=== PATIENT | female | born 1990 | race Caucasian/White ===

== ENCOUNTER → 2022-02-08 | Outpatient (CLI) | payer OTHER, SELFPAY ==
[2022-02-08 13:36] LABS: Absolute Lymphocyte Count 1.78 X10^3/uL (0.83-4.51); Basophil# 0.07 X10^3/uL; Eosinophil# 0.18 X10^3/uL; Eosinophils% 2.4 % (0-5); Hematocrit 43.9 % (37-47); Hemoglobin 14.6 g/dL (12.0-15.0); Lymphocyte # 1.78 X10^3/ul (0.83-4.51); Lymphocyte % 24.2 % (19-41); Mean Corp Hgb Conc 33.3 g/dL (32-36); Mean Corpuscular Hgb 30.1 pg (27.0-32.0); Mean Corpuscular Volume 90.5 fL (81-99); Mean Platelet Vol. 11.1 fl (6.2-12.0); Monocyte# 0.29 X10^3/uL; Monocyte% 3.9 % (0-10); NRBC Flagged by Analyzer 0 % (0-5); Neutrophil # 5.02 X10^3/uL (2.7-7.7); Neutrophil % 68.4 % (47-70); Platelet Count 229 K/mm3 (150-450); RBC Distribution Width CV 11.6 % (11.6-14.6); RBC Distribution Width SD 38.3 fl (35.1-43.9); Red Blood Count 4.85 M/mm3 (4.2-5.4); White Blood Count 7.4 K/mm3 (4.4-11.0)
[2022-02-08 14:29] LABS: HIV - WCH Non-Reactive (Nonreactive); Hepatitis B Surface Antigen Non-Reactive (Nonreactive); Hepatitis C Antibody Non-Reactive (Nonreactive); Rubella IgG Reactive (Nonreactive); Syphilis Antibodies Non-reactive
[2022-02-08 14:33] LABS: Estradiol 50.5 pg/mL; Follicle Stimulating Hormone 4.6 mIU/mL; Luteinizing Hormone 6.4 mIU/mL; T4 Free Direct 0.95 ng/dL (0.76-1.46); Thyroid Stim Hormone (TSH) 1.95 uIU/mL (0.358-3.74)
[2022-02-14 18:11] LABS: HPV Reflexed? NOT INDICATED
== END | disposition home or self-care (01) ==
LOC: WOBLAB 12:09
PROVIDERS: Visit Provider Obstetrics & Gynecology
DX: Z12.4 Encounter for screening for malignant neoplasm of cervix (principal); N97.9 Female infertility, unspecified
CPT/HCPCS: 36415; 82670; 83001; 83002; 84439; 84443; 85025; 86703; 86762; 86780; 86803; 87340; 88175; G0145

== ENCOUNTER → 2023-02-09 | Outpatient (CLI) | payer OTHER, SELFPAY ==
[2023-02-13 14:09] LABS: HPV APTIMA, High Risk Negative (Negative)
== END | disposition home or self-care (01) ==
PROVIDERS: Visit Provider Nurse Practitioner Women's Health
DX: Z12.4 Encounter for screening for malignant neoplasm of cervix (principal)
CPT/HCPCS: 87624; 88175; G0145

== ENCOUNTER 2024-05-09 16:36 | Emergency (ER) | payer OTHER, SELFPAY ==
[2024-05-09 16:37] VITALS: BP 133/78; PULSE 91; RESP 16; TEMP 36.6; O2SAT 100; BMI 20.3
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
[2024-05-09] MEDS: Acetaminophen 325 MG Tablet 650 MG PO (17:51)
[2024-05-09 18:38] VITALS: BP 115/72; PULSE 81; RESP 16; TEMP 36.7; O2SAT 99
== END 2024-05-09 18:39 | disposition home or self-care (01) ==
PROVIDERS: Emergency Provider Emergency Medicine; PCP Family Medicine; Referring Provider Emergency Medicine; Visit Provider Emergency Medicine
DX: M25.532 Pain in left wrist (principal); T23.072A Burn of unspecified degree of left wrist, initial encounter; V43.52XA Car driver injured in collision with other type car in traffic accident, initial encounter
CPT/HCPCS: 73110; 99282

== ENCOUNTER 2024-11-04 19:55 | Outpatient (CLI) | payer OTHER, SELFPAY ==
[2024-11-04 21:02] LABS: Color, Urine Yellow (Yellow); Glucose, Dipstick Normal (Normal); Ketone-Dipstick Negative (Negative); Leukocyte Esterase-Dipstick Negative /ul (Negative); Nitrite-Dipstick Negative (Negative); Occult Blood-Urine Negative /ul (Negative); Protein-Dipstick Negative (Negative); Urine Bilirubin Dipstick Negative (Negative); Urine Clarity Clear (Clear); Urine Urobilinogen Normal (Normal)
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
== END 2024-11-04 20:35 | disposition home or self-care (01) ==
LOC: WPOUT 20:00 → WP 20:00
PROVIDERS: PCP Family Medicine; Visit Provider Obstetrics & Gynecology
DX: O99.891 Other specified diseases and conditions complicating pregnancy (principal); N94.89 Other specified conditions associated with female genital organs and menstrual cycle; Z3A.20 20 weeks gestation of pregnancy
CPT/HCPCS: 59025; 59050; 81002; 87086; 99221; G0378

== ENCOUNTER 2025-03-27 00:43 | Inpatient (IN) | payer OTHER, SELFPAY ==
--- OUTSIDE RECORDS SUMMARY | 2025-03-26 21:01 | XMS RPT_ITS | CCD ---
Author Organization [facility] Care Team Providers Care Data Steward Name Role Phone Unavailable Primary Care Provider Tushar Aguirre Primary Care Provider Unavailable Primary Care Provider Shelby Centeno MD, Tushar Stapleton Primary Care Provide r CHELSY PERRY Attending Unavailable ERIK CHENG Referring Unavailable EILEEN HOUSE Attending Unavailable ERIK CHENG Referring Unavailable CHELSY PERRY Attending Unavailable ERIK CHENG Referring Unavailable Elif MELO, Tushar Stapleton Primary Care Provide r Tushar Centeno MD Primary Care Provide r Mitesh Fregoso Unavailable Peter Teresa Attending Unavailable Tushar Centeno Primary Care Unavailable Tushar Centeno Primary Care Unavailable Wendie Ly Referring Unavailable Wendie Ly Attending Unavailable Peter Teresa Referring Unavailable Peter Teresa Attending Unavailable Peter Teresa Admitting Unavailable Tushar Centeno Primary Care Unavailable Cecile Ruth CNP Primary Care Provider [phone] Tushar Centeno MD Primary Care Provide r TUSHAR CENTENO Primary Care Unavail able ZINA JENSEN Attending Unavailable TUSHAR CENTENO Primary Care Unavail able ZINA JENSEN Referring Unavailable TUSHAR CENTENO Primary Care Unavail able HANNA RANDALL Attending Unavail able TUSHAR CENTENO Primary Care Unavail able ZINA JENSEN Referring Unavailable TUSHAR CENTENO Primary Care Unavail able JENSEN, ZINA Referring Unavailable VALERIO LEON Attending Unavailable CECILE RUTH Primary Care Unavailable JENSEN, ZINA Referring Unavailable JENSEN, ZINA Attending Unavailable CECILE RUTH Primary Care Unavailable SELF Referring Unavailable BEBETO VALENCIA Attending Unavailable GODLECARLOS EDUARDO, [facility] Primary Care Unavail able JENSEN, ZINA Referring Unavailable GODLEWSVLADIMIR, [facility] Primary Care Unavail able JENSEN, ZINA Referring Unavailable GODLEWSKI, [facility] Primary Care Unavail able JENSEN, ZINA Referring Unavailable JENSEN, ZINA Attending Unavailable GODLECARLOS EDUARDO, [facility] Primary Care Unavail able VICKY ENGEL Attending Unavailable GODLEWSVLADIMIR, [facility] Primary Care Unavail able JENSEN, ZINA Referring Unavailable JENSEN, ZINA Attending Unavailable GODROSSANA, [facility] Primary Care Unavail able VICKY ENGEL Referring Unavailable GODLEWSVLADIMIR, [facility] Primary Care Unavail able MITESH FREGOSO Referring Unavailable BRAD RODRIGUEZ Attending Unavailable GODLEWSVLADIMIR, [facility] Primary Care Unavail able JENSEN, ZINA Attending Unavailable GODLECARLOS EDUARDO, [facility] Primary Care Unavail able JENSEN, ZINA Referring Unavailable GODLEWSVLADIMIR, TUSHAR ANDREI Primary Care Unavail able JENSEN, ZINA Attending Unavailable GODLEWSVLADIMIR, TUSHAR ANDREI Primary Care Unavail able JENSEN, ZINA Referring Unavailable GODLECARLOS EDUARDO, TUSHAR ANDREI Primary Care Unavail able ASHLI LARAY Referring Unavailable MISBAH CHEN Attending Unavailable GODLECARLOS EDUARDO, [facility] Primary Care Unavail able VICKY ENGEL Attending Unavailable GODLEWSVLADIMIR, [facility] Primary Care Unavail able NADORLIK, JOSSY Referring Unavailable GODLEWSVLADIMIR, [facility] Primary Care Unavail able JENSEN, ZINA Referring Unavailable PETER TERESA Attending Unavailable GODLEWSVLADIMIR, TUSHAR ANDREI Primary Care Unavail able JENSEN, ZINA Attending Unavailable GODLEWSVLADIMIR, [facility] Primary Care Unavail able GODLEWSVLADIMIR, [facility] Primary Care Unavail able JENSEN, ZINA Attending Unavailable GODLEWSVLADIMIR, [facility] Primary Care Unavail able JENSEN, ZINA Referring Unavailable GODLEWSKI, TUSHARFOREIGN CEJAE Primary Care Unavail able ZINA JENSEN Referring Unavailable ZINA JENSEN Attending Unavailable PROVIDER, UNKNOWN Attending Unavailable CECILE RUTH Primary Care Unavailable JOSSY LARA Attending Unavailable TUSHAR CENTENO Primary Care Unavail able TUSHAR CENTENO Primary Care Unavail able Allergies Allergy Classification Reported Allergen(s) Allergy Type Date of Onset Reaction(s) Facility (20 sources) Amoxicillin; Translations: [AMOXICILLIN] Drug Allergy 3 Rash [facility] (20 sources) Latex; Translations: [LATEX] Propensity to adverse reactions to drug 3 Swelling [facility] (1 source) Latex Propensity to adverse reactions to drug 3 Swelling [facility] (20 sources) Clindamycin; Translations: [CLINDAMYCIN] Drug Allergy 9 Diarrhea [facility] (1 source) Amoxicillin Drug Allergy 5 [facility] (1 source) Latex Drug allergy (disorder) 5 [facility] Repository Medications Current Medications Medication Drug Class(es) Dates Sig (Normalized) Sig (Original) cholecalciferol 0.025 mg oral tablet (12 sources) Vitamin D Start: 06-03-2022 take 1 tablet by mouth once daily cholecalciferol (VITAMIN D3) 1,000 unit tab tablet Take 1 tablet by mouth once daily. 06/03/2022 Active CHOLINE CHLORIDE, BULK, MISC (20 sources) CHOLINE CHLORIDE , BULK, MISC 550 mg. Active CHOLINE CHLORIDE , BULK, MISC Active Coenzyme Q10 (COQ10 PO) (2 sources) Coenzyme Q10 (CO Q10 PO) Take by mouth. 0 Active Docosahexaenoate (12 sources) docosahexaenoic acid ( DHA ORAL) Take by mouth. With omega 3 Active ferrous sulfate (12 sources) ferrous sulfate (IRON ORAL) Take by mouth. Blood builder- whole food iron Active Lactobac no.41/Bifidobact no .7 (PROBIOTIC-10 ORAL) (20 sources) Lactobac no.41/B ifidobact no.7 (PROBIOTIC-10 ORAL) Take by mouth once daily. Active Lactobac no.41/B ifidobact no.7 (PROBIOTIC-10 ORAL) Take by mouth once daily. 0 Active Comment on above: Take by mouth once d aily. nutritional supplement/fiber (JUICE PLUS FIBRE ORAL) (20 sources) nutritional supp lement/fiber (JUICE PLUS FIBRE ORAL) Take by mouth once daily. Active nutritional supp lement/fiber (JUICE PLUS FIBRE ORAL) Take by mouth once daily. 0 Active Comment on above: Take by mouth once d aily. Nutritional Supplements (Juice Plus Fibre) Liquid (2 sources) Nutritional Supplements (Juice Plus Fibre) Liquid Take by mouth. 0 Active omega-3 acid ethyl esters (chcf) 1000 mg oral capsule (2 sources) take 2 capsules by mouth twice daily omega-3 acid ethyl esters 1 g capsule Take 2 capsules by mouth 2 times daily. 0 Active Probiotic Product (PROBIOTIC ADVANCED PO) (2 sources) Probiotic Produc t (PROBIOTIC ADVANCED PO) Take by mouth. 0 Active Completed/Discontinued Medications Medication Drug Class(es) Dates Sig (Normalized) Sig (Original) ascorbic acid 500 mg oral tablet (20 sources) Vitamin C End: 08-12-2024 take 1 tablet by mouth once daily ascorbic acid, vitamin C, (VITAMIN C) 500 mg tablet Take 500 mg by mouth once daily. 08/12/2024 Discontinued (Course of therapy completed) take 1 tablet by mouth once chanel y Ascorbic acid 500 MG tablet Take 1 tablet by mouth daily. 0 Active Comment on above: Take 500 mg by mouth once daily. aspirin 81 mg delayed release oral tablet (11 sources) Platelet Aggregation Inhibitor, Nonsteroidal Anti-inflammatory Drug Start: 08-12-2024 End: 12-04-2024 take 1 tablet by mouth once daily aspirin, enteric coated (ECOTRIN LOW STRENGTH) 81 mg EC tablet Indications: with uncertain dates, antepartum (HCC) Take 1 tablet by mouth once daily. 90 tablet 3 08/12/2024 12/04/2024 Discontinued (Discontinued by Patient) Choline (4 sources) End: 11-08-2024 CHOLINE ORAL Take by mouth. 11/08/2024 Discontinued (Course of therapy completed) CHOLINE ORAL Polo e by mouth. Active chorionic gonadotropin 89479 unt/ml injectable solution (17 sources) Gonadotropin Start: 02-23-2023 End: 04-14-2023 chorionic gonadotropin (PREGNYL) 10,000 unit solr 10,000 Units once daily. 10,000 Units as directed. Inject 10,000 units for HCG trigger 1 Each 1 02/23/2023 04/14/2023 Discontinued Comment on above: 10,000 Units once da foreign. 10,000 Units as directed. Inject 10,000 units for HCG trigger CRANBERRY [id number] ORAL (8 sources) Start: 06-03-2022 End: 03-09-2025 CRANBERRY [id number] ORAL Take by mouth. 06/03/2022 03/09/2025 Discontinued (Course of therapy completed) Start: 06-03-2022 CRANBERRY EXTR [id number] ORAL Take by mouth. 06/03/2022 Active doxycycline hyclate 100 mg oral tablet (16 sources) Tetracycline-class Drug Start: 05-16-2023 End: 08-12-2024 take 1 tablet by mouth twice daily doxycycline (VIBRA-TABS) 100 mg tablet Take 1 tablet by mouth twice daily. 8 tablet 05/16/2023 08/12/2024 Discontinued (Course of therapy completed) Comment on above: Take 1 tablet by emily twice daily. estradiol 2 mg oral tablet (16 sources) Estrogen Start: 05-16-2023 End: 08-12-2024 take 3 tablets by mouth once daily estradiol (ESTRACE) 2 mg tablet Take 3 tablets by mouth once daily. 120 tablet 3 05/16/2023 08/12/2024 Discontinued Comment on above: Take 3 tablets by mo [facility] once daily. fish oil/borage/flax/o m3,6,9 1 (OMEGA 3-6-9 ORAL) (20 sources) End: 02-10-2025 fish oil/borage/flax/o m3,6,9 1 (OMEGA 3-6-9 ORAL) Take by mouth once daily. 02/10/2025 Discontinued (Course of therapy completed) fish oil/borage/ flax/om3,6,9 1 (OMEGA 3-6-9 ORAL) Take by mouth once daily. Active fish oil/borage/ flax/om3,6,9 1 (OMEGA 3-6-9 ORAL) Take by mouth once daily. 0 Active Comment on above: Take by mouth once d aily. follicle stimulating hormone 75 unt / luteinizing hormone 75 unt injection (16 sources) Gonadotropin Start: 023 End: 023 inject 75 [IU] by subcutaneous injection once daily Menotropins (MENOPUR) 75 unit solr Inject 75 Units subcutaneously once daily. 5 Each 3 02/27/2023 04/14/2023 Discontinued Start: 02-23-2023 inject 75 [IU] by mcdonnell bcutaneous injection once daily Menotropins (MENOPUR) 75 unit solr Inject 75 Units subcutaneously once daily. 3 Each 3 02/23/2023 Active Comment on above: Inject 75 Units subc utaneously once daily. 1.5 ml follitropin kevin 600 unt/ml pen injector (17 sources) Start : 02-23 End: 04-14 inject 350 [IU] by subcutaneous injection once daily, then inject 200 [IU] by subcutaneous injection once daily Follitropin Kevin 900/1.5 unit/mL pnij Inject 350 Units subcutaneously once daily. Inject 200 Units subcutaneously once daily 1 Each 3 02/23/2023 04/14/2023 Discontinued Comment on above: Inject 350 Units sub cutaneously once daily. Inject 200 Units subcutaneously once daily 1.08 ml follitropin beta 833 unt/ml cartridge (13 sources) Start : 02-27 End: 04-14 inject 350 [IU] by subcutaneous injection once daily Follitropin Beta (FOLLISTIM AQ) 900 unit/1.08 mL Inject 350 Units subcutaneously once daily. 2 Each 3 02/27/2023 04/14/2023 Discontinued Comment on above: Inject 350 Units sub cutaneously once daily. 0.5 ml ganirelix acetate 0.5 mg/ml prefilled syringe (17 sources) Gonadotropin Releasing Hormone Antagonist Start : 02-23 End: 04-14 Ganirelix Acetate 250 mcg/0.5 mL Inject 1 syringe daily subcutaneous before 8am. 4 Each 3 02/23/2023 04/14/2023 Discontinued Comment on above: Inject 1 syringe bradley ly subcutaneous before 8am. leuprolide acetate 5 mg/ml injectable solution (7 sources) Gonadotropin Releasing Hormone Receptor Agonist Start : 04-04 inject 80 [IU] by subcutaneous injection once leuprolide (LUPRON) 1 mg/0.2 mL Inject 80 units subcutaneous once as directed for Lupron injection. Prefilled syringe for trigger only 1 Kit 1 04/04/2023 Active Comment on above: Inject 80 units subc utaneous once as directed for Lupron injection. Prefilled syringe for trigger only methylPREDNISolone 16 mg oral tablet (16 sources) Corticosteroid Start : 05-16 End: 08-12 take 1 tablet by mouth once daily methylPREDNISolone (MEDROL) 16 mg tablet Take 1 tablet by mouth once daily. 4 tablet 05/16/2023 08/12/2024 Discontinued (Course of therapy completed) Comment on above: Take 1 tablet by emily once daily. PNV no.103/folic/om3s/fish oil ( WITH DHA-FOLIC ACID ORAL) (20 sources) End: 03-09 PNV no.103/folic/om3s/fish oil ( WITH DHA-FOLIC ACID ORAL) Take by mouth. 03/09/2025 Discontinued (Discontinued by Patient) PNV no.103/folic /om3s/fish oil ( WITH DHA-FOLIC ACID ORAL) Take by mouth. Active progesterone 50 mg/ml injectable solution (16 sources) Progesterone Start: 05-16-2023 End: 08-12-2024 inject 1 mL by intramuscular injection once daily in the morning progesterone 50 mg/mL injection Inject 1 mL intramuscularly once daily. Take in the morning before 10am 30 mL 3 05/16/2023 08/12/2024 Discontinued (Course of therapy completed) Comment on above: Inject 1 mL intramuscularly once daily. Take in the morning before 10am Syringe with Needle, Disp, (BD LUER-AMY SYRINGE) (16 sources) Start: 05-16-2023 End: 08-12-2024 Syringe with Needle, Disp, (BD LUER-AMY SYRINGE) To be used to draw up progesterone in oil 30 Each 3 05/16/2023 08/12/2024 Discontinued (Course of therapy completed) Start: 05-16-2023 Syringe with N eedle, Disp, (BD LUER-AMY SYRINGE) To be used to draw up progesterone in oil 30 Each 3 05/16/2023 Active Comment on above: To be used to draw u p progesterone in oil ubiquinol 200 mg oral capsule (20 sources) End: take 200 mg by mouth once daily COQ10, UBIQUINOL, ORAL Take 200 mg by mouth once daily. 08/12/2024 Discontinued (Course of therapy completed) Comment on above: Take 200 mg by mouth once daily. 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; Translations: [Encounter for male factor infertility in female patient] Episodic E Codes: Adverse effects of medical drugs (1 source) Adverse effect of antidotes and chelating agents, initial encounter; Translations: [Adverse effect of penicillamine, initial encounter] Onset: 03-05-2025 Episodic Female infertility (17 sources) Female infertility; Translations: [Female infertility, unspecified] Chronic Immunizations and screening for infectious disease (1 source) Encounter for immunization; Translations: [Need for vaccination] Onset: 01-01-2025 Episodic Intracranial injury (1 source) History of concussion injury of brain; Translations: [Personal history of traumatic brain injury] 08-12-2024 Episodic Nonmalignant breast conditions (5 sources) Fibrocystic changes of bilateral breasts; Translations: [Diffuse cystic mastopathy of right breast] Onset: 12-05-2022 Chronic Other and unspecified benign neoplasm (20 sources) Cavernous hemangioma; Translations: [Hemangioma unspecified site] 01-01-2025 Episodic Other and unspecified benign neoplasm (2 sources) Hemangioma unspecified site; Translations: [Cavernoma] Onset: 02-14-2025 Episodic Other complications of ; puerperium affecting management of mother (3 sources) Suspected disorder; Translations: [Maternal care for (suspected) abnormality and damage, unspecified, fetus 1] 11-19-2024 Episodic Other complications of ; puerperium affecting management of mother (1 source) Maternal care for (suspected) abnormality and damage, unspecified, fetus 1; Translations: [Maternal care for (suspected) abnormality and damage, unspecified, fetus 1 (HCC)] Onset: 02-12-2025 Episodic Other complications of (1 source) Spotting per vagina in ; Translations: [Spotting complicating , unspecified trimester] 08-12-2024 Episodic Other complications of (1 source) Excessive weight gain in , third trimester; Translations: [Edema or excessive weight gain in , without mention of hypertension, antepartum condition or complication] 01-01-2025 Episodic Other complications of (1 source) Hereditary disease in family possibly affecting fetus; Translations: [Maternal care for (suspected) hereditary disease in fetus, not applicable or unspecified] 02-12-2025 Episodic Other complications of (3 sources) High risk ; Translations: [Supervision of high risk , unspecified, third trimester] 03-05-2025 Episodic Other complications of (1 source) Supervision of high risk , unspecified, third trimester; Translations: [Supervision of high risk in third trimester (HCC)] Onset: 03-05-2025 Episodic Other injuries and conditions due to external causes (1 source) Unspecified injury of left wrist, hand and finger(s), initial encounter; Translations: [Unspecified injury of left wrist, hand and finger(s), initial encounter] Onset: 12-20-2024 Episodic Other screening for suspected conditions (not mental disorders or infectious disease) (12 sources) Patient encounter status; Translations: [Encounter for test, result unknown] Onset: 09-13-2024 06-22-2023 Episodic Poisoning by other medications and drugs (2 sources) Penicillamine adverse reaction; Translations: [Adverse effect of antidotes and chelating agents, initial encounter] 03-05-2025 Episodic Residual codes; unclassified (4 sources) Family history of breast cancer; Translations: [Family history of malignant neoplasm of breast] Onset: 12-05-2022 Episodic Residual codes; unclassified (2 sources) Family history of malignant neoplasm of breast; Translations: [Family history of malignant neoplasm of breast] Onset: 12-05-2022 Episodic Residual codes; unclassified (1 source) Did not attend; Translations: [No-show for appointment] 10-01-2023 Episodic Residual codes; unclassified (1 source) Gestation period, 9 weeks; Translations: [9 weeks gestation of ] 08-20-2024 Episodic Residual codes; unclassified (1 source) Gestation period, 12 weeks; Translations: [12 weeks gestation of ] 09-13-2024 Episodic Residual codes; unclassified (1 source) Gestation period, 17 weeks; Translations: [17 weeks gestation of ] 10-15-2024 Episodic Residual codes; unclassified (2 sources) Gestation period, 20 weeks; Translations: [20 weeks gestation of ] 11-08-2024 Episodic Residual codes; unclassified (1 source) Gestation period, 24 weeks; Translations: [24 weeks gestation of ] 12-04-2024 Episodic Residual codes; unclassified (3 sources) Gestation period, 28 weeks; Translations: [28 weeks gestation of ] 01-01-2025 Episodic Residual codes; unclassified (3 sources) Gestation period, 30 weeks; Translations: [30 weeks gestation of ] 01-17-2025 Episodic Residual codes; unclassified (1 source) FH: Hypothyroidism; Translations: [Family history of other endocrine, nutritional and metabolic diseases] 01-17-2025 Episodic Residual codes; unclassified (2 sources) History of excision of intestinal structure; Translations: [Acquired absence of other specified parts of digestive tract] 01-31-2025 Episodic Residual codes; unclassified (1 source) Gestation period, 32 weeks; Translations: [32 weeks gestation of ] 01-31-2025 Episodic Residual codes; unclassified (1 source) Gestation period, 34 weeks; Translations: [34 weeks gestation of ] 02-10-2025 Episodic Residual codes; unclassified (1 source) Gestation period, 36 weeks; Translations: [36 weeks gestation of ] 02-24-2025 Episodic Residual codes; unclassified (1 source) Gestation period, 37 weeks; Translations: [37 weeks gestation of ] 03-05-2025 Episodic Residual codes; unclassified (1 source) Gestation period, 38 weeks; Translations: [38 weeks gestation of ] 03-10-2025 Episodic Residual codes; unclassified (1 source) Gestation period, 39 weeks; Translations: [39 weeks gestation of ] 03-20-2025 Episodic Residual codes; unclassified (1 source) Gestation period, 31 weeks; Translations: [31 weeks gestation of ] 01-23-2025 Episodic Residual codes; unclassified (1 source) 39 weeks gestation of ; Translations: [39 weeks gestation of (HCC)] Onset: 03-20-2025 Episodic Residual codes; unclassified (1 source) 38 weeks gestation of ; Translations: [38 weeks gestation of (HCC)] Onset: 03-10-2025 Episodic Residual codes; unclassified (1 source) Other specified postprocedural states; Translations: [History of intestinal surgery] Onset: 02-24-2025 Episodic Residual codes; unclassified (1 source) 37 weeks gestation of ; Translations: [37 weeks gestation of (HCC)] Onset: 03-05-2025 Episodic Residual codes; unclassified (1 source) 36 weeks gestation of ; Translations: [36 weeks gestation of (HCC)] Onset: 02-24-2025 Episodic Residual codes; unclassified (1 source) 34 weeks gestation of ; Translations: [34 weeks gestation of (HCC)] Onset: 02-10-2025 Episodic Residual codes; unclassified (1 source) 32 weeks gestation of ; Translations: [32 weeks gestation of (HCC)] Onset: 01-31-2025 Episodic Residual codes; unclassified (1 source) Acquired absence of other specified parts of digestive tract; Translations: [History of bowel resection] Onset: 01-31-2025 Episodic Residual codes; unclassified (1 source) Family history of other endocrine, nutritional and metabolic diseases; Translations: [Family history of hypothyroidism] Onset: 01-17-2025 Episodic Residual codes; unclassified (1 source) 30 weeks gestation of ; Translations: [30 weeks gestation of (HCC)] Onset: 01-17-2025 Episodic Residual codes; unclassified (1 source) 24 weeks gestation of ; Translations: [24 weeks gestation of (HCC)] Onset: 01-01-2025 Episodic Residual codes; unclassified (1 source) 28 weeks gestation of ; Translations: [28 weeks gestation of (HCC)] Onset: 01-01-2025 Episodic Unclassified (20 sources) [facility] Education - [facility]ON Onset: 08-12-2024 08-12-2024 Unclassified (20 sources) Education - [place] Onset: 08-12-2024 08-12-2024 Unclassified (1 source) Other specified diseases and conditions complicating ; Translations: [Other specified diseases and conditions complicating ] Onset: 12-20-2024 Past or Other Problems Problem Classification Problem Date Documented Da te Episodic/Chronic Allergic reactions (11 sources) Allergy to penicillin; Translations: [Allergy status to penicillin] Onset: 03-10-2025 Resolved: 03-16-2025 07-03-2023 Episodic Genitourinary symptoms and ill-defined conditions (4 sources) Increased frequency of urination; Translations: [Frequency of micturition] Onset: 09-03-2024 09-03-2024 Episodic Mood disorders (2 sources) Mood disorders Onset: 12-05-2022 Resolved: 12-05-2022 12-05-2022 Other complications of (20 sources) RhD negative; Translations: [Other specified related conditions, first trimester] Onset: 08-13-2024 08-13-2024 Episodic Other complications of (1 source) Other specified related conditions, first trimester; Translations: [Rh negative state in antepartum period, first trimester (HCC)] Onset: 08-13-2024 Episodic Other complications of (1 source) Spotting complicating , unspecified trimester; Translations: [Spotting during ] Onset: 08-12-2024 Episodic Other female genital disorders (20 sources) H/O: Disorder; Translations: [Personal history of other diseases of the female genital tract] Onset: 08-12-2024 08-12-2024 Episodic Other lower respiratory disease (20 sources) H/O: asthma; Translations: [Personal history of other diseases of the respiratory system] Onset: 08-12-2024 08-12-2024 Episodic Other lower respiratory disease (1 source) Personal history of other diseases of the respiratory system; Translations: [History of asthma] Onset: 08-12-2024 Episodic Other and delivery including normal (20 sources) with uncertain dates; Translations: [Encounter for supervision of normal , unspecified, unspecified trimester] Onset: 08-12-2024 08-12-2024 Episodic Residual codes; unclassified (3 sources) Family history of prostate cancer; Translations: [Family history of malignant neoplasm of prostate] Onset: 12-05-2022 Episodic Residual codes; unclassified (3 sources) At high risk for breast cancer; Translations: [Other specified personal risk factors, not elsewhere classified] Onset: 12-05-2022 Episodic Residual codes; unclassified (2 sources) Family history of malignant neoplasm of prostate; Translations: [Family history of malignant neoplasm of prostate] Onset: 12-05-2022 Episodic Residual codes; unclassified (20 sources) FH: Congenital heart disease; Translations: [Family history of other congenital malformations, deformations and chromosomal abnormalities] Onset: 08-12-2024 08-12-2024 Episodic Residual codes; unclassified (2 sources) Family history of other congenital malformations, deformations and chromosomal abnormalities; Translations: [Family history of congenital heart defect] Onset: 08-20-2024 Episodic Residual codes; unclassified (1 source) Unspecified blood type, Rh negative; Translations: [Rh negative state in antepartum period, first trimester (HCC)] Onset: 08-13-2024 Episodic Residual codes; unclassified (1 source) 12 weeks gestation of ; Translations: [12 weeks gestation of ] Onset: 09-13-2024 Episodic Residual codes; unclassified (1 source) 9 weeks gestation of ; Translations: [9 weeks gestation of ] Onset: 11-19-2024 Episodic Screening and history of mental health and substance abuse codes (20 sources) History of post-traumatic stress disorder; Translations: [Personal history of other mental and behavioral disorders] Onset: 08-12-2024 08-12-2024 Episodic Results Test Name Value Interpretation Reference Range Facil ity URINE OB DIP B/Oon Glucose Ql (U) Negative Neg mg/dL [facility] Interpretation and review of laboratory results Normal [facility] Protein.monoclonal (U) [Mass/Vol] Negative Neg mg/dL [facility] UA DIP, URINE (POC)on 2024 BILIRUBIN UA (POCT) Negative Negative [facility] CLARITY UA (POCT) Clear [facility] COLOR UA (POCT) Yellow [facility] GLUCOSE UA (POCT) Negative Negative mg/dL [facility] Hemoglobin Ql (U) Negative Negative [facility] KETONE UA (POCT) Negative Negative [facility] LEUKOCYTES UA (POCT) Negative Negative [facility] NITRITE UA (POCT) Negative Negative [facility] PH UA (POCT) 7 4.5 - 8.0 [facility] Protein Ql (U) Negative Negative mg/dL [facility] SPECIFIC GRAVITY UA (POCT) 1.01 1.005 - 1.030 [facility] UROBILINOGEN UA (POCT) 0.2 Normal E.U./dL [facility] Location:[facility], [address], [place], [address] [facility] POINT OF CARE [facility] CNOVon 03-06-2025 CNOV Office Visit (NEVCM) DONA GUTIERREZ ([id number]) 1990 F Date Time Provider Department 03/06/25 2:00 PM LIVIA DENNY [facility] During your visit today, we recorded the following information about you: Pulse Blood pressure Weight 87/minute 115/72 71.2 kg Livia Denny MD 03/09/2025 11:39 PM [facility] Initial Visit Dona Gutierrez CC#: [id number] Date of Service: 03/06/2025 Primary Care Provider: Tushar Centeno MD, MD The patient was referred by 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 I will provide a written report of my findings to the referring through letter, e communication, or epic. 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 She has a known incidental and asymptomatic vascular lesion in the left corie, suspected to be either a cavernous malformation vs a capillary telangiectasia, discovered incidentally during imaging for post-concussive syndrome following a head injury on September 05, 2020. She was previously evaluated by neurosurgery in May 2021, where it was determined that her lesions carried a low hemorrhage risk despite their location in the left corie. Her neurosurgeon at the time, Dr. Siddiqui, favored a diagnosis of capillary telangiectasia over cavernous malformation and recommended discontinuing annual follow-up imaging. Her past medical history is significant for a traumatic brain injury and a prior nerve injury, with noted limited motion in her left shoulder and arm. Her family history is negative for any vascular malformations. No headache, vertigo, lightheadedness, nausea or vomiting. No history of transient or persistent visual, language, speech, swallowing, motor, sensory, coordination, or gait deficits. Past Medical History: ACTIVE PROBLEM LIST History of Asthma History of Posttraumatic Stress Disorder (Ptsd) Erick (Generalized Anxiety Disorder) Family History of Congenital Heart Defect Encounter for Supervision of Normal in First Trimester ([facility]) History of Infertility Rh Negative State in Antepartum Period, First Trimester ([facility]) Cavernoma or capillary telangiectasia Ptsd (Post-Traumatic Stress Disorder) History of Intestinal Surgery Positive Gbs Test PAST SURGICAL HISTORY Procedure Laterality Date APPENDECTOMY 1992 EXTRACTION ERUPTED TOOTH/EXR 2014 IVF RETRIEVAL ANY METHOD 04/14/2023 LARGE INTESTINE SURGERY HX 4-16 months old Allergies: Amoxicillin, Clindamycin, and Latex Medications: Current Outpatient Medications Medication Sig docosahexaenoic acid ( DHA ORAL) Take by mouth. With omega 3 ferrous sulfate (IRON ORAL) Take by mouth. Blood builder- whole food iron cholecalciferol (VITAMIN D3) 1,000 unit tab tablet Take 1 tablet by mouth once daily. CHOLINE CHLORIDE, BULK, MISC 550 mg. nutritional supplement/fiber (JUICE PLUS FIBRE ORAL) Take by mouth once daily. Lactobac no.41/Bifidobact no.7 (PROBIOTIC-10 ORAL) Take by mouth once daily. CRANBERRY [id number] ORAL Take by mouth. (Patient not taking: Reported on 03/05/2025) PNV no.103/folic/om3s/fish oil ( WITH DHA-FOLIC ACID ORAL) Take by mouth. (Patient not taking: Reported on 02/10/2025) No current facility-administered medications for this visit. Social History Tobacco Use Smoking status: Never Smokeless tobacco: Never Vaping Use Vaping status: Never Used Substance Use Topics Alcohol use: Not Currently Comment: very occasional Drug use: Never Review of Systems Head: (-) headache Gastrointestinal: (-) dysphagia Neurological: (-) dysarthria PHYSICAL EXAMINATION BP 115/72 (BP Site: Left Arm, BP Position: Sitting, BP Cuff Size: Regular Adult) Pulse 87 Wt 71.2 kg (156 lb 15.5 oz) LMP 06/16/2024 (Exact Date) SpO2 100% BMI 25.34 kg/m? General: The patient was well-groomed, appeared to be of stated age, and was in no acute distress. Cardiovascular: Regular heart rate and rhythm. Radial pulses normal. Respiratory: Normal breaths and breathing effort. No apparent dyspnea on exam. Head and neck: Atraumatic and normocephalic. Normal and symmetric cervical range of motion. Integuments: No hematoma or ecchymoses. Neurological exam: - Awake, alert, aware of events. Oriented to date/ month/ year; self; place. Provided own history. - Language normal in fluency, conversational comprehension. No paraphasias. - Normal visual smith OU to confrontation. SKYLA. Extraocular movements full, conjugate, and with normal accomodation and no nystagmus or drift. - Facial movements normal. Normal speech; no dysarthria. Normal and symmetri (more content not included)... Normal [facility] MR/PAT.ANEon 03-06-2025 MR/PAT.[facility] Medical Records Department [address] [place] [address] PAT - Anesthesia 03/06/25 0016 MR#: [id number] Acct: [id number] Name: DONA GUTIERREZ Rep #: [id number] : 1990 34 From: Alli Mendez MD PCP: Dr. Tushar Centeno MD Status:PRE [facility] Y Race: C Location: [facility] Pre-Assessment Diagnosis/Proposed Procedure Planned Operative Procedure(s): VAGINAL DELIVERY Anesthesia History Anesthesia History - structural biologist: Anesthesia History - structural biologist Hx Hospitalization No 03/03/25 10:38 Any Problems With Anesthesia No 03/03/25 10:38 Cholinesterase deficiency No 03/03/25 10:38 You/Your Family Experience No 03/03/25 10:38 fever (hyperthermia) with Relationship Recent Exposure to Contagious Disease Does patient have nerve No 03/03/25 10:38 stimulator Patient instructed to have device shut off --Does patient have Pacemaker or ICD? When Was Last Pacemaker Check QUESTION #4 FULL TEXT: You/Your Family Experience fever (hyperthermia) with Anesthesia Last Oral Intake Last Oral intake: Last Oral Intake NPO since Meds taken in AM with sips of water? Meds patient instructed to take am of surgery PONV PONV - structural biologist: PONV - structural biologist Female Yes 03/03/25 10:38 HX of Motion Sickness No 03/03/25 10:38 HX of N/V After Surgery No 03/03/25 10:38 Non-Smoker Yes 03/03/25 10:38 Duration of Surgery greater No 03/03/25 10:38 than 60 minutes Number of Risk Factors 2 03/03/25 10:38 PONV Score Moderate Risk 03/03/25 10:38 Height Weight Height Weight: Anesthesia: Height Weight Height 5 ft 6 in 05/09/24 16:37 Respiratory Assessment Respiratory Assessment - structural biologist: Respiratory Tract Infection Hx - structural biologist Hx Respiratory Tract Infection No 03/03/25 10:38 STOP Sleep Apnea STOP Sleep Apnea - structural biologist: STOP Sleep Apnea - structural biologist Hx Hypertension No 03/03/25 10:38 Hx Sleep Apnea No 03/03/25 10:38 CPAP BIPAP Do you snore loudly (louder No 03/03/25 10:38 than talking or can be heard Do you often feel tired/ No 03/03/25 10:38 fatigued/ sleepy during daytime? Has anyone observed you stop No 03/03/25 10:38 breathing during sleep? STOP Results Negative 03/03/25 10:38 QUESTION #5 FULL TEXT : Do you snore loudly (louder than talking or can be heard through closed doors)? Tobacco Use History Tobacco Use History - structural biologist: Tobacco Use History - structural biologist Tobacco Use Smoking Status Never smoker 03/03/25 10:38 Hx Tobacco Use No 03/03/25 10:38 Years Smoking Packs Smoked per Day Smoking Cessation Date was within the last 15 years Hx Smoking Cessation Date Hx Smoking Cessation Counseling Hematologic Medial History Hematologic Hx - structural biologist: Hematologic Medical Hx - accountant Hx of Blood Transfusion No 03/03/25 10:38 Hx of Transfusion in last 3 No 03/03/25 10:38 Months Date of Last Transfusion (if within last 3 months) Ever experience any problems No 03/03/25 10:38 with transfusion(s)? Specify any problems Hx of Preganancy in last 3 Yes 03/03/25 10:38 Months Nurse Filling Out Transfusion VCHRISTIN 03/03/25 10:38 Questions: Date: 03/03/25 03/03/25 10:38 Time: 10:39 03/03/25 10:38 Patient unable to answer at this time (ie. confused, unrespo /Reproduction History /Reproductive History - structural biologist: /Reproductive Hx- structural biologist Hx Now No 03/03/25 10:38 Gestational Age (in weeks): EDC: Hx Hx Para Hx Section SAB No 03/03/25 10:38 [facility] Medical History (Updated 03/03/25 @ 10:38 by Racheal Peña) Anxiety Hx: UTI (urinary tract infection) Kidney stones Cavernoma Migraine headache Injury of head and neck Asthma History of intussusception Home Medications ???Medication ???Instructions ???Recorded ???Last Taken ???Type GRASS FED LIVER 1,500 mg PO DAILY 03/03/25 Unknown History L. crispatus, gasseri, jensenii, 1 tab PO DAILY 03/03/25 Unknown Hi story rhamnosus 12 billion cell chew tablet ([facility]) cholecalciferol (vitamin D3) 50 4,000 unit PO DAILY 03/03/25 Unkno wn History mcg (2,000 unit) capsule (Vitamin D3) choline 500 mg tablet 500 mg PO DAILY 03/03/25 Unknown H istory fish oil-dha-epa 1,200 mg-144 1 cap PO DAILY 03/03/25 Unknown Hi story mg-216 mg capsule multivitamin-folic acid 400 1 tab PO DAILY 03/03/25 Unknown Hi story mcg-biotin 2,000 mcg tablet (Fxbq-Gsub-Uqcgt (yzzdxogf-vkvbr-vztqji )) Allergy/AdvR (more content not included)... Normal [facility] URINE OB DIP B/Oon Glucose Ql (U) Negative Neg mg/dL [facility] Interpretation and review of laboratory results Normal [facility] Protein.monoclonal (U) [Mass/Vol] Negative Neg mg/dL [facility] CNPNon 03-03-2025 CNPN Telephone ([facility]) DONA GUTIERREZ ([id number]) 1990 F Date Time Provider Department 03/03/25 LIVIA DENNY-[facility] During your visit today, we recorded the following information about you: Malathi Hutchinson 03/03/2025 11:58 AM Signed I received an urgent referral for this patient from Yaquelin Altman ([place]) planner/scheduler 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 Also she is 37 weeks . Am I allowed to schedule her with Dr. Denny this ? Janelle Curry, RN 03/03/2025 12:24 PM Signed Pt has urgent referral form [place] for Dr Denny. Nisha Awan Has added pt to Dr Denny schedule, but need imaging. None [facility]. Anderson Meyer 03/06/2025 10:55 AM Addendum Spoke with patient AND she confirmed 2020 Brain Imaging from [facility] is most recent. Requested images from [facility]. Patient states she may have imaging on a CD. If she finds, she will also bring to appointment. OSH imaging/records received from [facility]: March 03, 2025 -Last 5 Years Records available in Care Everywhere -Last 5 Years Imaging Varun Younger 03/04/2025 8:39 AM Signed Received outside medical records from [place] and scanned into patient chart. Allergies As of Date: 03/03/2025 Noted Allergy Reaction DELETED: AMOXICILLIN 12/07/2022 2 - Rash CLINDAMYCIN 03/06/2019 6 - Diarrhea LATEX 12/07/2022 7 - Swelling Date Reviewed: 02/24/2025 Reviewed by: Lucinda Nation MA - Fully Assessed Reason for Visit: Appointment [186] Imaging/Records [Other] Prescriptions as of 03/24/2025 - docosahexaenoic acid ( DHA ORAL) Take by mouth. With omega 3 - ferrous sulfate (IRON ORAL) Take by mouth. Blood builder- whole food iron - cholecalciferol (VITAMIN D3) 1,000 unit tab tablet Take 1 tablet by mouth once daily. - CHOLINE CHLORIDE, BULK, MISC 550 mg. - nutritional supplement/fiber (JUICE PLUS FIBRE ORAL) Take by mouth once daily. - Lactobac no.41/Bifidobact no.7 (PROBIOTIC-10 ORAL) Take by mouth once daily. Problem List As Of Date 03/03/2025 Noted Resolved History of asthma [Z87.09] 08/12/2024 History of posttraumatic stress disorder (PTSD)*08/12/2024 ERICK (generalized anxiety disorder) [F41.1] 08/12/2024 Family history of congenital heart defect [Z82.*08/12/2024 Encounter for supervision of normal i*08/12/2024 History of infertility [Z87.42] 08/12/2024 Rh negative state in antepartum period, first t*08/13/2024 Cavernoma or capillary telangiectasia [D18.00] Generalized anxiety disorder [F41.1] 01/01/2025 PTSD (post-traumatic stress disorder) [F43.10] History of intestinal surgery [Z98.890] 02/14/2025 Positive GBS test [B95.1] 02/28/2025 Encounter Status:Closed by RENA ISAAC on 03/24/25 Normal [facility] Gp B Strep Vag Ql Culton S. agalactiae Org specific cx Ql (Vag fld) Positive for Group B Streptococcus by PCR. Unable to recover viable organism for susceptibility testing. Abnormal [facility] Comment on above: Performed By: #### G BPCR, 584-3 ####[facility] LAB[facility]IA [id number] [place] [id number] [place] ROUTINE, GROUP B ST REPTOCOCCUS BY PCRon 02-24-2025 ROUTINE, GROUP B STREPTOCOCCUS BY PCR Detected Abnormal [facility] Comment on above: Performed By: #### G BPCR, 584-3 ####[facility] LABCLIA [id number] [place] [id number] [place] URINE OB DIP B/Oon 5 Glucose Ql (U) Negative Neg mg/dL [facility] Interpretation and review of laboratory results Normal [facility] Protein.monoclonal (U) [Mass/Vol] Negative Neg mg/dL [facility] T. gondii IgG Qn (S)on 02-20 Interpretation and review of laboratory results Normal [facility] Toxo IgG Qual Negative Negative [facility] Comment on above: No serological evide nce of past exposure to Toxoplasma gondii. Cannot exclude recent infection if the specimen collected within 3-4 weeks after infection. [facility] T. gondii IgG Qn (S)on 02-19 TOXO IGG QUAL Negative Normal Negative [facility] Comment on above: Order Comment: Sherine peter Type: BLOOD SPECIMENOrdering Facility: [facility] Address: [address] [place] [address] Result Comment: No s erological evidence of past exposure to Toxoplasma gondii. Cannot exclude recent infection if the specimen collected within 3-4 weeks after infection. Performed By: #### 8 039-0, 8040-8 ####[facility] [id number] [address] [place] T. gondii IgM Qn (S)on 02-19 TOXO IGM QUAL Negative Normal Negative [facility] Comment on above: Order Comment: Sherine peter Type: BLOOD SPECIMENOrdering Facility: [facility] Address: [address] [place] [address] Result Comment: No s erological evidence of recent exposure to Toxoplasma gondii. Performed By: #### 8 039-0, 8040-8 ####[facility] [id number] [address] [place] CNPCarlee 02-14-2025 CNPN Telephone (VIVIANGYWM) DONA GUTIERREZ ([id number]) 1990 F Date Time Provider Department 02/14/25 VICKY ENGEL During your visit today, we recorded the following information about you: Rossi TateYNES 02/14/2025 5:31 PM Signed FYI: Referral to neurology was denied by patient's insurance. Per insurance: Care has been deemed clinically inappropriate: Reason: patient had a MRI and neurology consultation in 2020 and does not need further imaging or f/u unless patient develops new neurological symptoms. Zina Jensen APRN.CNM 02/24/2025 2:29 PM Signed Please keep follow up with patient and neurology. Thank you, Zina Jensen APRN.CNM Allergies As of Date: 02/14/2025 Noted Allergy Reaction AMOXICILLIN 12/07/2022 2 - Rash CLINDAMYCIN 03/06/2019 6 - Diarrhea LATEX 12/07/2022 7 - Swelling Date Reviewed: 02/10/2025 Reviewed by: Mariaelena Rubio MA - Fully Assessed Reason for Visit: Consult [502] Prescriptions as of 02/24/2025 - docosahexaenoic acid ( DHA ORAL) Take by mouth. With omega 3 - ferrous sulfate (IRON ORAL) Take by mouth. Blood builder- whole food iron - CRANBERRY [id number]-U-[id number] ORAL Take by mouth. - cholecalciferol (VITAMIN D3) 1,000 unit tab tablet Take 1 tablet by mouth once daily. - CHOLINE CHLORIDE, BULK, MISC 550 mg. - PNV no.103/folic/om3s/fish oil ( WITH DHA-FOLIC ACID ORAL) Take by mouth. - nutritional supplement/fiber (JUICE PLUS FIBRE ORAL) Take by mouth once daily. - Lactobac no.41/Bifidobact no.7 (PROBIOTIC-10 ORAL) Take by mouth once daily. 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 DONA GUTIERREZ : 1990 PT ID#: [id number] Age: 34 years Sex: F STUDY DATE: 02/12/2025 10:24:59 AM SHANTI: 03/23/2025 GA: 34w3d Image Quality: The images were of adequate diagnostic quality. Referring Physician: Jossy Lara DO Diagnosing Physician: Misbah Chen MD Gis Physical Scientist: Genny Patterson [facility] 2nd Gis Physical Scientist: Diagnosis: O35.2XX0 Hereditary disease in fetus, single fetus or unspecified Procedure Code: 12155, 72129, 40408 Echo, Complete (w/Doppler and color) Exam Location: OP (). Indications: Evaluate cardiac function & anatomy Exam Quality: Images were suboptimal secondary to Late Gestation. Color Doppler was utilized to interrogate the cardiac valves assessed. Spectral Doppler was utilized to determine the flow velocities and pressure gradients reported in this exam. History: FOB with CHD - BAV Parameters: Single/Multi: Cunha Position: position is cephalic Biometry: Biometry Table: Biparietal Diameter 9.22 cm Abdominal Circumference 29.99 cm Femur Length 6.91 cm Estimated Weight 2686.71 g Vessels: Three-vessel umbilical cord is present. Umbilical artery flow Doppler is normal. Umbilical venous flow Doppler is normal. Ductus Venosus Doppler is normal. Cerebral Artery Doppler is normal. UA S/D 3.1 UA PI 1.23 MCA PI 1.67 Rate and Rhythm: Normal heart rate and rhythm. HR 144 bpm Segmental Anatomy, Cardiac Position and Situs: The segmental anatomy and situs are normal. Normal visceral situs. The heart position is within the left hemithorax (levo position). Levocardia (apex to the left). The aorta is to the right of the pulmonary artery. Segmental anatomy is S,D,S. Systemic Veins: Right superior vena cava is right sided and drains normally to the right atrium. The inferior vena cava is right sided and inserts normally into the right atrium. Pulmonary Veins: At least one pulmonary vein on each side drains to the left atrium. Atria: The right atrium is normal in size. The left atrium is normal in size. Widely patent foramen ovale with normal intrauterine right to left flow. Tricuspid Valve: The tricuspid valve is normal. Tricuspid valve inflow Doppler is biphasic. There is no tricuspid valve regurgitation. Right Ventricle: There is qualitatively normal right ventricular size and wall thickness with normal systolic function. Mitral Valve: The mitral valve is normal. There is no mitral valve regurgitation. Mitral valve inflow Doppler is biphasic. Left Ventricle: Normal left ventricular size and wall thickness with normal systolic function. VSD: There is no obvious ventricular septal defect. Conotruncal Anatomy: There is normal conotruncal anatomy. RVOT: There is no right ventricular outflow tract obstruction. Pulmonary Valve: The pulmonary valve is normal. There is no pulmonary valve stenosis. There is no pulmonary valve regurgitation. Pulmonary Arteries: The main and branch pulmonary arteries appear normal. The main pulmonary artery is normal. LVOT: There is no left ventricular outflow tract obstruction. Aorta: Aortic arch is widely patent. Ductus Arteriosus: Ductal arch is tortuous. Pericardium: There is no pericardial effusion. Prior Exam's: The prior study for comparison is dated 11/19/2024. Compared with the prior study there has been no significant change. Measurements: 2D: Z-Score Aortic annulus 6.1 mm -0.75 Ao Isthmus 4.0 mm -1.54 MV annulus 8.9 mm -1.03 Pulmonary annulus 7.6 mm -0.65 TV annulus 11.8 mm 0.50 Summary 1. Segmental anatomy and situs are normal. 2. No structural abnormalities seen. 3. No valvar abnormalities seen. 4. Normal left ventricular size and wall thickness with normal systolic function. 5. Qualitatively normal right ventricular size and wall thickness with normal systolic function. 6. Aortic arch is widely patent. Ductal arch is tortuous but without obstruction; normal right to left flow 7. Normal heart rate and rhythm. 8. Widely patent foramen ovale with normal intrauterine right to left flow. 9. No pericardial effusion. 10. The prior study for comparison is dated 11/19/2024. Compared with prior study there has been no significant change. The results and limitations of the echocardiogram and echocardiography in general, including the inability to exclude ASDs, some VSDs, minor valvar abnormalities, partial anomalous pulmonary venous return, persistent patent ductus arteriosus, and coarctation of the aorta, were explained to the patient. Misbah Chen MD *Electronically signed on 02/12/2025 at 12:33:45 PM [id number] (more content not included)... [facility] (OBGYWM) DONA GUTIERREZ ([id number]) 1990 F Date Time Provider Department 02/06/25 ZINA JENSEN During your visit today, we recorded the following information about you: Kristen Patterson RN 02/06/2025 4:51 PM Signed Patient referred for neurology consult by Zina Jensen. [facility] calling to notify office that they will be faxing over forms that need to be completed prior to scheduling patient. Form received and given to Zina Jensen to sign. Will need faxed back once signed. BRIANNA Ramos Trisha, RN 02/07/2025 11:39 AM Signed Patient also sent CellPly message regarding this. Lacey Mazariegos RN Allergies As of Date: 02/06/2025 Noted Allergy Reaction AMOXICILLIN 12/07/2022 2 - Rash CLINDAMYCIN 03/06/2019 6 - Diarrhea LATEX 12/07/2022 7 - Swelling Date Reviewed: 01/31/2025 Reviewed by: Mariaelena Rubio MA - Fully Assessed Reason for Visit: Forms [913] Prescriptions as of 02/07/2025 - CHOLINE CHLORIDE, BULK, MISC - PNV no.103/folic/om3s/fish oil ( WITH DHA-FOLIC ACID ORAL) Take by mouth. - nutritional supplement/fiber (JUICE PLUS FIBRE ORAL) Take by mouth once daily. - fish oil/borage/flax/om3,6, 9 1 (OMEGA 3-6-9 ORAL) Take by mouth once daily. - Lactobac no.41/Bifidobact no.7 (PROBIOTIC-10 ORAL) Take by mouth once daily. 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 Patient notified. Valente Cotton MA Allergies As of Date: 02/05/2025 Noted Allergy Reaction AMOXICILLIN 12/07/2022 2 - Rash CLINDAMYCIN 03/06/2019 6 - Diarrhea LATEX 12/07/2022 7 - Swelling Date Reviewed: 01/31/2025 Reviewed by: Mariaelena Rubio MA - Fully Assessed Reason for Visit: [place] Paperwork [2115] Prescriptions as of 02/05/2025 - CHOLINE CHLORIDE, BULK, MISC - PNV no.103/folic/om3s/fish oil ( WITH DHA-FOLIC ACID ORAL) Take by mouth. - nutritional supplement/fiber (JUICE PLUS FIBRE ORAL) Take by mouth once daily. - fish oil/borage/flax/om3,6, 9 1 (OMEGA 3-6-9 ORAL) Take by mouth once daily. - Lactobac no.41/Bifidobact no.7 (PROBIOTIC-10 ORAL) Take by mouth once daily. 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 gondii IgM Qn (S)on 01-23 Interpretation and review of laboratory results Normal [facility] Toxo IgM Qual Negative Negative [facility] Comment on above: No serological evide nce of recent exposure to Toxoplasma gondii. [facility] 25(OH)D3 SerPl-mCncon 2024 25-hydroxyvitamin D3 [Mass/Vol] 55.7 ng/mL Normal 31.0-80.0 [facility] Comment on above: Order Comment: Sherine peter Type: BLOOD SPECIMEN Ordering Facility: [facility] Address: [address] [place] [address] Result Comment: Clas sification of 25 OH Vitamin D status: Deficiency/Insufficiency: < or = 30 ng/ml. Sufficiency/Optimal Levels: 31-80 ng/mL Toxicity: > 100 ng/mL. Test performed by chemiluminescent immunoassay. Performed By: #### 7 3752-8 #### [facility] CLIA [id number] [address] [place] [address] [place] Examination level ultrasound on 01-17-2025 [facility] Radiology Study observation (narrative) [facility] T. gondii IgG Qn (S)on 01-17 TOXO IGG QUAL Negative Normal Negative [facility] Comment on above: Order Comment: Sherine peter Type: BLOOD SPECIMEN Ordering Facility: [facility] Address: [address] [place] [address] Result Comment: No s erological evidence of past exposure to Toxoplasma gondii. Cannot exclude recent infection if the specimen collected within 3-4 weeks after infection. Performed By: #### 7 3752-8 #### [facility] CLIA [id number] [address] [place] [address] [place] T. gondii IgM Qn (S)on 01-17 TOXO IGM QUAL Negative Normal Negative [facility] Comment on above: Order Comment: Sherine peter Type: BLOOD SPECIMEN Ordering Facility: [facility] Address: [address] [place] [address] Result Comment: No s erological evidence of recent exposure to Toxoplasma gondii. Performed By: #### 7 3752-8 #### [facility] CLIA [id number] [address] [place] [address] [place] TSH SerPl-aCncon 01-17-2025 TSH Qn 1.170 m[IU]/L Normal 0.270-4.200 [facility] Comment on above: Order Comment: Speci men Type: BLOOD SPECIMENOrdering Facility: [facility] Address: [address] [place] [address] Result Comment: If t he patient is , TSH reference range varies by gestational period: First Trimester (weeks 9-12): 0.180-2.990 mIU/L Second Trimester: 0.110-3.980 mIU/L Third Trimester: 0.480-4.710 mIU/L Tino Fish et al. A Practical Approach for the Verifications and Determination of Site- and Trimester-Specific Reference Intervals for Thyroid Function tests in . Thyroid, 2019:29:3:412-420. George Osullivan, et al. 2017 Guidelines of the [place] Thyroid Association for the Diagnosis and Management of Thyroid Disease during and the . Thyroid, 2017:27:3:315-389. Performed By: #### 3 016-3 ####[facility] [id number] [facility] SYSTEMCharles [address] STATES OF [facility] CNPCarlee 01-16-2025 CNPN Telephone (CHPDMN) DONA GUTIERREZ ([id number]) 1990 F Date Time Provider Department 01/16/25 JOSSY LARA CHPDMN During your visit today, we recorded the following information about you: Candida Moser 01/16/2025 3:48 PM Addendum Dona called the office to schedule echo follow up with Dr. Lara. Holding echo slot with Dr. Lara in [place] on 01/21 at 11am. Message sent to scheduling. Allergies As of Date: 01/16/2025 Noted Allergy Reaction AMOXICILLIN 12/07/2022 2 - Rash LATEX 12/07/2022 7 - Swelling Date Reviewed: 01/01/2025 Reviewed by: Valente Cotton MA - Fully Assessed Reason for Visit: Care Coordination [3491] Cmt: echo f/u Prescriptions as of 01/16/2025 - CHOLINE CHLORIDE, BULK, MISC - PNV no.103/folic/om3s/fish oil ( WITH DHA-FOLIC ACID ORAL) Take by mouth. - nutritional supplement/fiber (JUICE PLUS FIBRE ORAL) Take by mouth once daily. - fish oil/borage/flax/om3,6, 9 1 (OMEGA 3-6-9 ORAL) Take by mouth once daily. - Lactobac no.41/Bifidobact no.7 (PROBIOTIC-10 ORAL) Take by mouth once daily. 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] Generalized anxiety disorder [F41.1] 01/01/2025 PTSD (post-traumatic stress disorder) [F43.10] Encounter Status:Closed by CANDIDA MOSER on 01/16/25 Normal [facility] CNCOon 01-03-2025 CNCO Letter Text Normal [facility] CNPNon 01-03-2025 CNPN Telephone (OBGYWM) DONA GUTIERREZ ([id number]) 1990 F Date Time Provider Department 01/03/25 JENSEN, ZINA OBGYWM During your visit today, we recorded the following information about you: Patricia Grider RN 01/03/2025 10:00 AM Signed In order to request pt's medical records from [facility], they need another form filled out in addition to the [facility] Medical Record Release form that the pt filled out. Letter (explaining this to the pt) typed up and the required form from [facility] and the [facility] Medical Record Release form mailed to pt per Shayy Gomez. Allergies As of Date: 01/03/2025 Noted Allergy Reaction AMOXICILLIN 12/07/2022 2 - Rash LATEX 12/07/2022 7 - Swelling Date Reviewed: 01/01/2025 Reviewed by: Valente Cotton MA - Fully Assessed Reason for Visit: Medical record release from [facility] [Other] Prescriptions as of 01/17/2025 - CHOLINE CHLORIDE, BULK, MISC - PNV no.103/folic/om3s/fish oil ( WITH DHA-FOLIC ACID ORAL) Take by mouth. - nutritional supplement/fiber (JUICE PLUS FIBRE ORAL) Take by mouth once daily. - fish oil/borage/flax/om3,6, 9 1 (OMEGA 3-6-9 ORAL) Take by mouth once daily. - Lactobac no.41/Bifidobact no.7 (PROBIOTIC-10 ORAL) Take by mouth once daily. 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] Generalized anxiety disorder [F41.1] 01/01/2025 PTSD (post-traumatic stress disorder) [F43.10] Encounter Status:Closed by PATRICIA GRIDER on 01/03/25 Normal [facility] CBC W Auto Differential pane l (Bld)on 01-01-2025 Basophils (Bld) [#/Vol] 0.04 10*3/uL Normal <0.11 [facility] Comment on above: Order Comment: Speci men Type: BLOOD SPECIMENOrdering Facility: [facility] Address: [address] [place] [address] Performed By: #### 5 7021-8 ####[facility] MILLWCALIA [id number] [place] [address] [place] Basophils/100 WBC (Bld) 0.5 % Normal [facility] Comment on above: Order Comment: Speci men Type: BLOOD SPECIMENOrdering Facility: [facility] Address: [address] [place] [address] Performed By: #### 5 7021-8 ####[facility] [id number] [place] [address] [place] Differential cell count method Nom (Bld) Auto Normal [facility] Comment on above: Order Comment: Speci men Type: BLOOD SPECIMENOrdering Facility: [facility] Address: [address] [place] [address] Performed By: #### 5 7021-8 ####[facility] [id number] [place] [address] [place] Eosinophils (Bld) [#/Vol] 0.19 10*3/uL Normal <0.46 [facility] Comment on above: Order Comment: Speci men Type: BLOOD SPECIMENOrdering Facility: [facility] Address: [address] [place] [address] Performed By: #### 5 7021-8 ####[facility] [id number] [place] [address] [place] Eosinophils/100 WBC (Bld) 2.2 % Normal [facility] Comment on above: Order Comment: Speci men Type: BLOOD SPECIMENOrdering Facility: [facility] Address: [address] [place] [address] Performed By: #### 5 7021-8 ####[facility] ALEXUSCENTERTONNCAIDEA [id number] [place] [address] [place] Erythrocyte distribution width (RBC) [Ratio] 12.4 % Normal 11.5-15.0 [facility] Comment on above: Order Comment: Speci men Type: BLOOD SPECIMENOrdering Facility: [facility] Address: [address] [place] [address] Performed By: #### 5 7021-8 ####[facility] [id number] [place] [address] [place] Hematocrit (Bld) [Volume fraction] 36.6 % Normal 36.0-46.0 [facility] Comment on above: Order Comment: Speci men Type: BLOOD SPECIMENOrdering Facility: [facility] Address: [address] [place] [address] Performed By: #### 5 7021-8 ####[facility] [id number] [place] [address] [place] Hemoglobin (Bld) [Mass/Vol] 12.0 g/dL Normal 11.5-15.5 [facility] Comment on above: Order Comment: Speci men Type: BLOOD SPECIMENOrdering Facility: [facility] Address: [address] [place] [address] Performed By: #### 5 7021-8 ####[facility] [id number] [place] [address] [place] Immature granulocytes (Bld) [#/Vol] 0.06 10*3/uL Normal <0.10 [facility] Comment on above: Order Comment: Speci men Type: BLOOD SPECIMENOrdering Facility: [facility] Address: [address] [place] [address] Performed By: #### 5 7021-8 ####[facility] FLORIDADEVAUGHNLIA [id number] [place] [address] [place] Immature granulocytes/100 WBC (Bld) 0.7 % Normal [facility] Comment on above: Order Comment: Speci men Type: BLOOD SPECIMENOrdering Facility: [facility] Address: [address] [place] [address] Performed By: #### 5 7021-8 ####[facility] [id number] [place] [address] [place] Lymphocytes (Bld) [#/Vol] 1.39 10*3/uL Normal 1.00-4.00 [facility] Comment on above: Order Comment: Speci men Type: BLOOD SPECIMENOrdering Facility: [facility] Address: [address] [place] [address] Performed By: #### 5 7021-8 ####[facility] [id number] [place] [address] [place] Lymphocytes/100 WBC (Bld) 15.8 % Normal [facility] Comment on above: Order Comment: Speci men Type: BLOOD SPECIMENOrdering Facility: [facility] Address: [address] [place] [address] Performed By: #### 5 7021-8 ####[facility] [id number] [place] [address] [place] MCH (RBC) [Entitic mass] 29.1 pg Normal 26.0-34.0 [facility] Comment on above: Order Comment: Speci men Type: BLOOD SPECIMENOrdering Facility: [facility] Address: [address] [place] [address] Performed By: #### 5 7021-8 ####[facility] FLORIDANCLI [id number] [place] [address] [place] MCHC (RBC) [Mass/Vol] 32.8 g/dL Normal 30.5-36.0 [facility] Comment on above: Order Comment: Speci men Type: BLOOD SPECIMENOrdering Facility: [facility] Address: [address] [place] [address] Performed By: #### 5 7021-8 ####[facility] [id number] [place] [address] [place] MCV (RBC) [Entitic vol] 88.6 fL Normal 80.0-100.0 [facility] Comment on above: Order Comment: Speci men Type: BLOOD SPECIMENOrdering Facility: [facility] Address: [address] [place] [address] Performed By: #### 5 7021-8 ####[facility] [id number] [place] [address] [place] Monocytes (Bld) [#/Vol] 0.36 10*3/uL Normal <0.87 [facility] Comment on above: Order Comment: Speci men Type: BLOOD SPECIMENOrdering Facility: [facility] Address: [address] [place] [address] Performed By: #### 5 7021-8 ####[facility] FLORIDANCLI [id number] [place] [address] [place] Monocytes/100 WBC (Bld) 4.1 % Normal [facility] Comment on above: Order Comment: Speci men Type: BLOOD SPECIMENOrdering Facility: [facility] Address: [address] [place] [address] Performed By: #### 5 7021-8 ####[facility] [id number] [place] [address] [place] Neutrophils (Bld) [#/Vol] 6.76 10*3/uL Normal 1.45-7.50 [facility] Comment on above: Order Comment: Speci men Type: BLOOD SPECIMENOrdering Facility: [facility] Address: [facility] [place] [address] Performed By: #### 5 7021-8 ####[facility] ANGELWDEVAUGHNLIA [id number] [place] [address] [place] [facility] Neutrophils/100 WBC (Bld) 76.7 % Normal [facility] Comment on above: Order Comment: Speci men Type: BLOOD SPECIMENOrdering Facility: [facility] Address: [address] [place] [address] Performed By: #### 5 7021-8 ####[facility] FLORIDADEVAUGHNLIA [id number] [place] [address] [place] Nucleated RBC (Bld) [#/Vol] 10*3/uL Normal <0.01 [facility] Comment on above: Order Comment: Speci men Type: BLOOD SPECIMENOrdering Facility: [facility] Address: [address] [place] [address] Performed By: #### 5 7021-8 ####[facility] FLORIDANCLIA [id number] [place] [address] [place] Nucleated RBC/100 WBC (Bld) [Ratio] 0.0 /100 WBC Normal [facility] Comment on above: Order Comment: Speci men Type: BLOOD SPECIMENOrdering Facility: [facility] Address: [address] [place] [address] Performed By: #### 5 7021-8 ####[facility] FLORIDANCLIA [id number] [place] [address] [place] Platelet mean volume (Bld) [Entitic vol] 11.0 fL Normal 9.0-12.7 [facility] Comment on above: Order Comment: Speci men Type: BLOOD SPECIMENOrdering Facility: [facility] Address: [address] [place] [address] Performed By: #### 5 7021-8 ####[facility] [id number] [place] [address] [place] Platelets (Bld) [#/Vol] 160 10*3/uL Normal 150-400 [facility] Comment on above: Order Comment: Speci men Type: BLOOD SPECIMENOrdering Facility: [facility] Address: [address] [place] [address] Performed By: #### 5 7021-8 ####[facility] [id number] [place] [address] [place] RBC (Bld) [#/Vol] 4.13 10*6/uL Normal 3.90-5.20 [facility] Comment on above: Order Comment: Speci men Type: BLOOD SPECIMENOrdering Facility: [facility] Address: [address] [place] [address] Performed By: #### 5 7021-8 ####[facility] [id number] [place] [address] [place] WBC (Bld) [#/Vol] 8.80 10*3/uL Normal 3.70-11.00 [facility] Comment on above: Order Comment: Speci men Type: BLOOD SPECIMENOrdering Facility: [facility] Address: [address] [place] [address] Performed By: #### 5 7021-8 ####[facility] [id number] [place] [address] [place] GESTATIONAL GLUCOSE SCREEN, 1-HOUR, 50 GRAM, NON-FASTINGon 01-01-2025 Glucose [Mass/Vol] 108 mg/dL Normal 74-134 [facility] Comment on above: Order Comment: Speci men Type: BLOOD SPECIMEN Ordering Facility: [facility] Address: [address] [place] [address] Result Comment: [facility] Congress of Obstetricians and Gynecologists (Emily/Merritt) guidelines state a gestational diabetes mellitus positive screen is made, in women not previously diagnosed with overt diabetes, when the 1 hr plasma glucose level is equal to or above 140 mg/dL. [facility] [employer] [facility] recommends a 135 mg/dL cutoff. Performed By: #### G LTGST #### [facility] CLIA [id number] [address] [place] [address] [place] Reagin and Treponema pallidu m IgG and IgM [Interp]on 01-01-2025 T. pallidum IgG+IgM IA Ql (S) Non-Reactive Normal Nonreactive [facility] Comment on above: Order Comment: Speci men Type: BLOOD SPECIMEN [facility] Facility[facility] Address: [address] [place] [address] Performed By: #### 7 3752-8 #### [facility] CLIA [id number] [address] [place] [address] [place] Reagin+T pallidum IgG+IgM Se rPl-Impon 01-01-2025 Reagin and Treponema pallidum IgG and IgM [Interp] Cannot exclude recent Treponemal infection if specimen collected within 7-10 days after appearance of suspect lesions or 2-3 weeks after an exposure. Clinical correlation is required. Normal [facility] Comment on above: Order Comment: Speci men Type: BLOOD SPECIMEN [facility] Address: [address] [place] [address] Performed By: #### 7 3752-8 #### [facility] CLIA [id number] [address] [place] [address] [place] TYPE + SCREEN PRENATALon ABO O Normal [facility] Comment on above: Order Comment: Deepai rome Type: BLOOD SPECIMENOrdering Facility: [facility] Address: [address] [place] [address] Performed By: #### T SPN ####[facility] B[facility] BANKCLIA [id number] [place] [address] [place] Rh Nom (Bld) Negative Normal [facility] Comment on above: Order Comment: Speci men Type: BLOOD SPECIMENOrdering Facility: [facility] Address: [address] [place] [address] Performed By: #### T SPN ####[facility] BLO[facility] BANKCLIA [id number] [place] [address] [place] [facility] TYPE AND SCREEN EXPIRATION 01/04/2025 23:59 Normal [facility] Comment on above: Order Comment: Speci men Type: BLOOD SPECIMENOrdering Facility: [facility] Address: [address] [place] [address] Performed By: #### T SPN ####[facility] BLOOD BANKCLIA [id number] [address] FETALon 11-19-2024 + -- ------+-+ Pediatric Cardiology Echocardiogram Report + ------+-+ NAME: MRS. DONA GUTIERREZ : 1990 PT ID#: [id number] Age: 34 years Sex: F STUDY DATE: 11/19/2024 9:27:40 AM SHANTI: 02/21/2025 GA: 22w2d Image Quality: The images were of adequate diagnostic quality. Referring Physician: Zina Jensen Diagnosing Physician: Jossy Lara Gis Physical Scientist: Marlee Perez RDMS, RDCS 2nd Gis Physical Scientist: Diagnosis: [id number] abnormality and damage, single fetus or unspecified Procedure Code: 36143, 79771, 21770 Echo, Complete (w/Doppler and color) Exam [facility] (). Indications: Evaluate cardiac anatomy and function. Color Doppler was utilized to interrogate the cardiac valves assessed. Spectral Doppler was utilized to determine the flow velocities and pressure gradients reported in this exam. History: Family history of CHD Parameters: Single/Multi: [place] Position: position is cephalic Biometry: Biometry Table: Biparietal Diameter 5.22 cm Abdominal Circumference 17.53 cm Femur Length 3.88 cm Estimated Weight 480.37 g Vessels: Three-vessel umbilical cord is present. Umbilical artery flow Doppler is normal. Umbilical venous flow Doppler is normal. Ductus Venosus Doppler is normal. Cerebral Artery Doppler is normal. UA S/D 4.8 UA PI 1.46 MCA PI 1.41 Rate and Rhythm: Normal heart rate and rhythm. HR 143 bpm Mechanical AR 102 ms Segmental Anatomy, Cardiac Position and Situs: The segmental anatomy and situs are normal. Normal visceral situs. The heart position is within the left hemithorax (levo position). Levocardia (apex to the left). The aorta is to the right of the pulmonary artery. Segmental anatomy is S,D,S. Systemic Veins: Right superior vena cava is right sided and drains normally to the right atrium. The inferior vena cava is right sided and inserts normally into the right atrium. Pulmonary Veins: At least one pulmonary vein on each side drains to the left atrium. Atria: The right atrium is normal in size. The left atrium is normal in size. Widely patent foramen ovale with normal intrauterine right to left flow. Tricuspid Valve: The tricuspid valve is normal. Tricuspid valve inflow Doppler is biphasic. There is no tricuspid valve regurgitation. Right Ventricle: There is qualitatively normal right ventricular size and wall thickness with normal systolic function. Mitral Valve: The mitral valve is normal. There is no mitral valve regurgitation. Mitral valve inflow Doppler is biphasic. Left Ventricle: Normal left ventricular size and wall thickness with normal systolic function. VSD: There is no obvious ventricular septal defect. Conotruncal Anatomy: There is normal conotruncal anatomy. RVOT: There is no right ventricular outflow tract obstruction. Pulmonary Valve: The pulmonary valve is normal. There is no pulmonary valve stenosis. There is no pulmonary valve regurgitation. Pulmonary Arteries: The main and branch pulmonary arteries appear normal. The main pulmonary artery is normal. LVOT: There is no left ventricular outflow tract obstruction. Aortic Valve: The aortic valve is normal with no stenosis and no regurgitation. Aorta: Aortic arch is widely patent. There is a left aortic arch. Ductus Arteriosus: Ductal arch is widely patent with normal intrauterine right to left flow. Pericardium: There is no pericardial effusion. Measurements: 2D: Z-Score Aortic annulus 4.3 mm 1.44 MV annulus 5.7 mm 0.01 Pulmonary annulus 5.2 mm 1.58 TV annulus 6.6 mm 1.13 Summary 1. Segmental anatomy and situs are normal. 2. Normal left ventricular size and wall thickness with normal systolic function. 3. Qualitatively normal right ventricular size and wall thickness with normal systolic function. 4. Aortic valve is normal with no stenosis and no regurgitation. 5. Aortic arch is widely patent. 6. Ductal arch is widely patent with normal intrauterine right to left flow. 7. Normal heart rate and rhythm and normal Dopplers. 8. No pericardial effusion. The results and limitations of the echocardiogram and echocardiography in general, including the inability to exclude ASDs, some VSDs, minor valvar abnormalities, partial anomalous pulmonary venous return, persistent patent ductus arteriosus, and coarctation of the aorta, were explained to the patient. Jossy Lara DO *Electronically signed on 11/19/2024 at 10:35:52 AM Final CC [employer] Image : [id number] [email or web address] See Link below for Image Normal [facility] Examination level ultrasound on 11-08-2024 Indication Standard anatomic survey Impression REMOTE READ The patient is referred for a standard anatomic survey. - Single, live, intrauterine . - biometry is consistent with the established gestational age. - No malformations were visualized on a complete standard anatomic survey. - The amniotic fluid volume is normal amount. - The placenta is posterior, fundal. - The Transabdominal cervical length measures 32.7 mm with no evidence of funneling or other dynamic changes. - Not all structural malformations can be detected by ultrasound examination. Recommendations Additional follow-up as clinically indicated. Maternal Assessment Height 168 cm Height (ft) 5 ft Height (in) 6 in Physical Exam Initial weight (lb) 125 lb Initial BMI 20.18 kg/m Maternal assessment other: 1 Para 0 Method Transabdominal ultrasound examination. View: Adequate visualization Cunha . Number of fetuses: 1 Dating LMP on: 06/16/2024 GA by LMP 20 w + 5 d SHANTI by LMP: 03/23/2025 GA by prior assessment 20 w + 5 d SHANTI by prior assessment: 03/23/2025 Ultrasound examination on: 11/08/2024 GA by U/S based upon: AC, BPD, Femur, HC GA by U/S 20 w + 4 d SHANTI by U/S: 03/24/2025 Assigned: based on stated SHANTI, selected on 09/13/2024 Assigned GA 20 w + 5 d Assigned SHANTI: 03/23/2025 General Evaluation Cardiac activity present. FHR 157 bpm. movements: present. Presentation: breech Placenta: Placental site: posterior, fundal Umbilical cord: Cord vessels: 3 vessel cord Amniotic fluid: Amount of AF: normal amount. MVP 5.9 cm Growth Overview Exam date GA BPD (mm) HC (mm) AC (mm) FL (mm) HL (mm) EFW (g) 11/08/2024 20w 5d 46.1 19% 172 22% 161.7 62% 35.1 77% 34 78% 387 56% Biometry Standard BPD 46.1 mm 20w 0d 19% Hadlock OFD 60.3 mm 19w 4d 17% Nicolaides HC 172.0 mm 19w 5d 22% Juan Cerebellum tr 22.0 mm 20w 4d 65% Hill Nuchal fold 4.2 mm AC 161.7 mm 21w 2d 62% Hadlock Femur 35.1 mm 21w 2d 77% Juan Humerus 34.0 mm 21w 4d 78% Juan EFW 387 g 20w 6d 56% Hadlock EFW (lb) 0 lb EFW (oz) 14 oz EFW by: Hadlock (HC-AC-FL) Extended Allergist/Immunologist Physician 6.0 mm CM 3.7 mm 10% Nicolaides Extremities / Bony Struc FL / HC 0.20 83% Hadlock Other Structures FHR 157 bpm Anatomy Cranium: normal Lateral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 Analyst: Signed Normal [facility] Wrist min 3 Views [facility] Imaging Services [address] [place] [address] Wrist min 3 Views MR#: [id number] Acct: [id number] Name: DONA GUTIERREZ Rep #: [id number] : 1990 F 34 From: Beltran Hemphill MD PCP: Dr. Tushar Centeno MD Status: REG ER Study: Wrist min 3 Views Date of Exam: 05/09/24 Exam# [id number] Ordering Dr: Wendie Ly DO [id number] STUDY: X-RAY - RIGHT WRIST REASON FOR EXAM: Female, 34 years old. PAIN,TRAUMA TECHNIQUE: 3 view(s) of the wrist were obtained. COMPARISON: None. FINDINGS: Normal visualized distal radius and ulna. Normal radiocarpal articulation. Normal distal radioulnar articulation. Normal carpal bones. Normal carpal articulations. Normal carpometacarpal articulation of the thumb. Normal second through fifth carpometacarpal articulations. Normal visualized metacarpal bones. The soft tissue structures are unremarkable. RAD/Wrist min 3 Views IMPRESSION: Normal x-ray examination of the wrist. Electronically Signed: Beltran Hemphill MD at 17:49 EDT , CC: Dr. Wendie Ly DO; Dr. Tushar Centeno MD Land Degradation Analyst: Signed Normal [facility] 04-08-2024 CNPN Telephone (REIBD) DONA GUTIERREZ ([id number]) 1990 F Date Time Provider Department 04/08/24 BRAD RODRIGUEZ During your visit today, we recorded the following information about you: Mikki Estefany Gonzalez 04/08/2024 12:51 PM Signed Pt needs her notes from her appt on 04/03 faxed to [phone] attn Jennifer Pritchard RN 04/10/2024 3:20 PM Signed Message sent to patient. Instructed patient to contact medical records to have her records sent to another healthcare provider. Jennifer Puri RN April 10, 2024 3:20 PM Allergies As of Date: 04/08/2024 Noted Allergy Reaction AMOXICILLIN 12/07/2022 2 - Rash LATEX 12/07/2022 7 - Swelling Date Reviewed: 04/02/2024 Reviewed by: Veronica Rand MA - Fully Assessed Reason for Visit: pt needs notes from her apt on 04/02 sent the [facility] [Other] Prescriptions as of 04/10/2024 - Needle, Disp, 22 G 22 gauge x 1" 1 Each once daily. - estradiol (ESTRACE) 2 mg tablet Take 3 tablets by mouth once daily. - doxycycline (VIBRA-TABS) 100 mg tablet Take 1 tablet by mouth twice daily. - methylPREDNISolone (MEDROL) 16 mg tablet Take 1 tablet by mouth once daily. - progesterone 50 mg/mL injection Inject 1 mL intramuscularly once daily. Take in the morning before 10am - Syringe with Needle, Disp, (BD LUER-AMY SYRINGE) To be used to draw up progesterone in oil - Needle, Disp, 22 G (BD DISPOSABLE NEEDLES) 22 gauge x 1 1/2" To be used to inject progesterone in oil. - nutritional supplement/fiber (JUICE PLUS FIBRE ORAL) Take by mouth once daily. - fish oil/borage/flax/om3,6, 9 1 (OMEGA 3-6-9 ORAL) Take by mouth once daily. - Lactobac no.41/Bifidobact no.7 (PROBIOTIC-10 ORAL) Take by mouth once daily. - ascorbic acid, vitamin C, (VITAMIN C) 500 mg tablet Take 500 mg by mouth once daily. - COQ10, UBIQUINOL, ORAL Take 200 mg by mouth once daily. Problem List As Of Date: 04/08/2024 (None) Encounter Status:Closed by JENNIFER PURI on 04/10/24 [facility] [id number] 04-02-2024 [facility] ID: [id number] Author: BRAD RODRIGUEZ MD Service: ? 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 Will do office hysteroscopy. I spent a total of 40 minutes on the date of the service which included preparing to see the patient, [id number] patient care, completing clinical documentation, counseling and educating the patient/family/caregiv er, and ordering medications, tests, or procedures. Brad Rodriguez MD HAYDEE Frozen Embryo Transfer Treatment Plan: Number of embryos: one Uterine cavity testing: office hysteroscopy Protocol: Natural If programmed, type of estradiol: N/A Type of progesterone: progesterone supp 200 mg bid OK for OCPs to delay cycle start if needed: Yes Brad Victor MD 04/02/2024 Normal [facility] CNOVon 04-02-2024 CNOV Office Visit (REIBD) DONA GUTIERREZ ([id number]) 1990 F Date Time Provider Department 04/02/24 4:00 PM BRAD RODRIGUEZ REIBD During your visit today, we recorded the following information about you: Pulse Blood pressure Weight Last Period 98/minute 119/64 54.9 kg 03/26/24 Brad Rodriguez MD 04/09/2024 4:14 PM Signed Pritchard pt Dona Gutierrez is a 33 year old G 0 P 0 Ab 0 female with h/o male factor infertility. Did an fresh TESE IVF cycle in April of 2023 and have frozen vials fo sperm. Has transferred one NL embryos and did not get . She has remaining NL and No result embryo in storage. He saw Dr Anne again for epididymal obstruction. The first surgery was just for the purpose of getting sperm, the second was for reconstruction. He originally presented with azospermia secondary to epididymal obstruction after about 18 months of infertility. Menstrual Hx: Menarche: 16 Cycle length: 28-30 day cycle Duration: 3-5 Flow: Heavy x 3 days then tapers to light Other: Cramping Patient's last menstrual period was 03/26/2024 (exact date). Past Medical Hx: PAST MEDICAL HISTORY No date: Childhood asthma 09/2020: Traumatic brain injury (HCC) Comment: H/O traumatic brain injury in September 2020. Incident happened in the -hit her head on a cabinet. MRI w/wo contrast showed capillary telangiectasias-no concerns for bleeding. Had headaches after-resolved. Resolved with going to concussion physical therapy. Past Surgical Hx: PAST SURGICAL HISTORY 1993: APPENDECTOMY 2015: EXTRACTION ERUPTED TOOTH/EXR Social History Tobacco Use Smoking status: Never Smokeless tobacco: Never Substance Use Topics Alcohol use: Not Currently Comment: very occasional Drug use: Never Review of Systems: General: No weight loss, malaise or fevers Respiratory: No cough, hemoptysis, asthma, recent chest infection, wheezing no asthma seen teen years. Cardiovascular: No history of chest pain, palpitation, orthopnea, cyanosis, pedal edema Gastrointestinal: No blood in stool, pain with BM, tarry stool, persistent diarrhea or constipation Genitourinary: occasional UTIs Endocrine: No history of thyroid disorder, diabetes, cold intolerance, heat intolerance, polydypsia Musculoskeletal: Negative I have reviewed the above past medical history and review of systems as completed by my Self . 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 Will do office hysteroscopy. I spent a total of 40 minutes on the date of the service which included preparing to see the patient, [id number] patient care, completing clinical documentation, counseling and educating the patient/family/caregiv er, and ordering medications, tests, or procedures. MD HAYDEE Barnhart Frozen Embryo Transfer Treatment Plan: Number of embryos: one Uterine cavity testing: office hysteroscopy Protocol: Natural If programmed, type of estradiol: N/A Type of progesterone: progesterone supp 200 mg bid OK for OCPs to delay cycle start if needed: Yes Brad Victor MD 04/02/2024 Brad Rodriguez MD 04/09/2024 4:14 PM Signed Assessment- male factor infertility Plan- natural cycle will use one NL embryo and the back up embryo will be the No result embryo. Will do office hysteroscopy. I spent a total of 40 minutes on the date of the service which included preparing to see the patient, [id number] patient care, completing clinical documentation, counseling and educating the patient/family/caregiv er, and ordering medications, tests, or procedures. MD HAYDEE Barnhart Frozen Embryo Transfer Treatment Plan: Number of embryos: one Uterine cavity testing: office hysteroscopy Protocol: Natural If programmed, type of estradiol: N/A Type of progesterone: progesterone supp 200 mg bid OK for OCPs to delay cycle start if needed: Yes Brad Victor MD 04/02/2024 Referring Provider: MITESH FREGOSO [[id number]] Allergies As of Date: 04/02/2024 Noted Allergy Reaction AMOXICILLIN 12/07/2022 2 - Rash LATEX 12/07/2022 7 - Swelling Date Reviewed: 04/02/2024 Reviewed by: Veronica Rand MA - Fully Assessed Reason for Visit: Infertility [285] Primary Visit Diagnosis:Female infertility [N97.9] Other Visit Diagnosis:Fertility testing [Z31.41] Order(s):OFFICE HYSTEROSCOPY [[id number]] Order #: [id number] Prescriptions as of 04/09/2024 - Needle, Disp, 22 G 22 gauge x 1" 1 Each once daily. - estradiol (ESTRACE) 2 mg tablet Take 3 tablets by mouth once daily. - doxycycline (VIBRA-TABS) 100 mg tablet Take 1 tablet by mouth twice daily. - methylPREDNISolone (MEDROL) 16 mg tablet Take 1 tablet by mouth once daily. - progesterone 50 mg/mL injection Inject 1 mL intramuscularly once daily. Take in the morning bef (more content not included)... Normal [facility] CANCER GENETICS (LAB SEND OU T)Ordered By: Zaira Dowd on 05-31-2023 Cancer Genetics (Lab Sendout Only) [employer] [phone] [id number] [facility] HCG QUAL UR B/Oon 05-02-2023 status Negative neg - pos Dawit mead [facility] Quality Check Yes [facility] SONOHYSTEROGRAPHY (SIS) US W HIon 05-02-2023 [facility] HCG QUANTITATIVEon 3 HCG.beta subunit Qn 202.0 m[IU]/mL High <5.0 mIU/mL [facility] LUTEINIZING HORMONEon 2022 Lutropin Qn 99.9 m[IU]/mL See comment mIU/mL [facility] PROGESTERONE BLDon 3 Progesterone [Mass/Vol] 8.7 ng/mL High See comment ng/mL [facility] FOLLICULAR US WHIon 04-12-20 23 [facility] Laboratory - Chemistry and C hemistry - challengeon 04-12-2023 E2 [Mass/Vol] 2429 pg/mL [facility] PROGESTERONE BLDon 3 Progesterone [Mass/Vol] 1.6 ng/mL High See comment ng/mL [facility] FOLLICULAR US WHIon 04-11-20 23 [facility] Laboratory - Chemistry and C hemistry - challengeon 04-11-2023 E2 [Mass/Vol] 2350 pg/mL [facility] PROGESTERONE BLDon Progesterone [Mass/Vol] 1.6 ng/mL High See comment ng/mL [facility] ESTRADIOL-17B BLDon 04-10-20 E2 [Mass/Vol] 1609 pg/mL [facility] FOLLICULAR US WHIon 04-07-20 [facility] Laboratory - Chemistry and C hemistry - challengeon 04-07-2023 E2 [Mass/Vol] 649 pg/mL [facility] FOLLICULAR US WHIon 04-04-20 [facility] Laboratory - Chemistry and C hemistry - challengeon 04-04-2023 E2 [Mass/Vol] 204 pg/mL [facility] ESTRADIOL-17B BLDon 03-28-20 E2 [Mass/Vol] [facility] FOLLICULAR US WHIon 03-28-20 [facility] Hematocrit Auto (Bld) [Volum e fraction]on 03-28-2023 Hematocrit (Bld) [Volume fraction] 41.3 % 36.0 - 46.0 % [facility] ANTI MULLERIAN HORMONEon Mullerian inhibiting substance [Mass/Vol] 1.58 [facility] Absolute lymphocyte counton 02-08-2022 Lymphocytes Auto (Unsp spec) [#/Vol] 1.78 10*3/uL 0.83-4.51 [facility] Work Phone: Basophil percentageon 2021 Basophils/100 WBC (Bld) 1.0 % 0-1 [facility] Work Phone: Eosinophils/100 WBC (Bld) 2.4 % 0-5 [facility] Work Phone: Neutrophils (Bld) [#/Vol] 5.0 10*3/uL 2.0-7.7 [facility] Work Phone: Neutrophils/100 WBC (Bld) 68.4 % 47-70 [facility] Work Phone: WBC (Bld) [#/Vol] 7.4 10*3/uL 4.4-11.0 [facility] Work Phone: Blood erythrocytes count (nu mber/volume)on 02-08-2022 RBC (Bld) [#/Vol] 4.85 10*6/uL 4.2-5.4 [facility] Work Phone: Blood hemoglobin measurement (mass/volume)on 02-08-2022 Hemoglobin (Bld) [Mass/Vol] 14.6 g/dL 12.0-15.0 [facility] Work Phone: Blood lymphocytes/100 leukoc yteson 02-08-2022 Lymphocytes/100 WBC (Bld) 24.2 % 19-41 [facility] Work Phone: [phone] Blood monocytes/100 leukocyt eson 02-08-2022 Monocytes/100 WBC (Bld) 3.9 % 0-10 [facility] Work Phone: Blood platelet mean volumeon 02-08-2022 Platelet mean volume (Bld) [Entitic vol] 11.1 fL 6.2-12.0 [facility] Work Phone: Determination of erythrocyte mean corpuscular volume (MCV)on 02-08-2022 MCV (RBC) [Entitic vol] 90.5 fL 81-99 [facility] Work Phone: HIV 1 and HIV-2 antibody ass ay with HIV-1 p24 antigen detectionon 02-08-2022 HIV 1+2 Ab+HIV1 p24 Ag IA Ql Non-Reactive Nonreactive [facility] Work Phone: Hematocrit Auto (Bld) [Volum e fraction]on 02-08-2022 Hematocrit (Bld) [Volume fraction] 43.9 % 37-47 [facility] Work Phone: Laboratory - Chemistry and C hemistry - challengeon 02-08-2022 Free T4 [Mass/Vol] 0.95 ng/dL 0.76-1.46 [facility] Work Phone: Laboratory - Hematology and Cell countson 02-08-2022 Erythrocyte distribution width (RBC) [Entitic vol] 38.3 fL 35.1-43.9 [facility] Work Phone: [phone] Erythrocyte distribution width (RBC) [Ratio] 11.6 % 11.6-14.6 [facility] Work Phone: [phone] Immature granulocytes/100 WBC (Bld) 0.100 % 0.0-0.9 [facility] Work Phone: [phone] Comment on above: IG% - Immature Granu locytes (promyelocytes, myelocytes and metamyelocytes) > 1% indicates that a LEFT SHIFT is Present. MCH (RBC) [Entitic mass] 30.1 pg 27.0-32.0 [facility] Work Phone: [phone] Nucleated RBC/100 WBC (Bld) [Ratio] 0 % 0-5 [facility] Work Phone: [phone] MCHC Auto (RBC) [Mass/Vol]on 02-08-2022 MCHC (RBC) [Mass/Vol] 33.3 g/dL 32-36 [facility] Work Phone: [phone] No Panel Informationon 02-08 Follicle Stimulating Hormone 4.6 mIU/mL [facility] Work Phone: Comment on above: NORMAL REFERENCE RAN GES FEMALE FOLLICULAR 2.3 - 12.6 mIU/mL MID-CYCLE PEAK 5.2 - 17.5 mIU/mL LUTEAL 1.7 - 12.9 mIU/mL POST-MENOPAUSAL ON MHT 5.9 - 72.8 mIU/mL NOT ON MHT 12.7 - 132.2 mlU/mL MALE 0.7 - 10.8 mIU/mL Hepatitis B Surface Antigen Non-Reactive Nonreactive [facility] Work Phone: [phone] Hepatitis C Antibody Non-Reactive Nonreactive [facility] Work Phone: [phone] Comment on above: Non Reactive: < 0.8 Equivocal: >/= 0.8 to < 1.0 Reactive: >/= 1.0The CDC recommends that a reactive/equivocal HCV antibody result be followed up by the HCV Nucleic Acid Amplificationtest (768108) Luteinizing Hormone 6.4 mIU/mL [facility] Work Phone: [phone] Comment on above: NORMAL REFERENCE RAN GES FEMALE FOLLICULAR 1.9 - 26.2 mIU/mL MID-CYCLE PEAK 22.8 - 76.1 mIU/mL LUTEAL 0.6 - 16.6 mIU/mL POST-MENOPAUSAL ON MHT 1.1 - 52.4 mIU/mL NOT ON MHT 8.6 - 61.8 mIU/mL MALE 1.2 - 10.6 mIU/mL Rubella IgG Antibody Reactive Nonreactive [facility] Work Phone: Comment on above: Antibody Results Int erpretation of Immune Status Non Reactive Presumed Non-Immune Equivocal Equivocal Reactive Presumed Immune Thyroid Stimulating Hormone (TSH) 1.95 uIU/mL 0.358-3.74 [facility] Work Phone: Platelets bldon 02-08-2022 Platelets (Bld) [#/Vol] 229 10*3/uL 150-450 [facility] Work Phone: Serum Treponema species anti body detectionon 02-08-2022 Treponema sp Ab Ql (S) Non-Reactive [facility] Work Phone: Serum or plasma estradiol (E 2) measurement (mass/volume)on 02-08-2022 E2 [Mass/Vol] 50.5 pg/mL [facility] Work Phone: Comment on above: NORMAL REFERENCE RAN GES FEMALE FOLLICULAR 21.4 - 164.8 pg/mL MID-CYCLE PEAK 49.9 - 367.2 pg/mL LUTEAL 40.2 - 259.0 pg/mL POST-MENOPAUSAL ON MHT <11.0 - 462.1 pg/mL NOT ON MHT <11.0 - 58.3 pg/mL MALE <11.0 - 52.5 pg/mL NOTE:SIEMENS HAS CONFIRMED THE DRUG FULVETRANT (FASLODEX) MAY CAUSE FALSELY ELEVATED ESTRADIOL RESULTS WHEN USING THIS TEST METHOD. IF PATIENT IS TAKING FULVESTRANT AN ALTERNATIVE METHOD SHOULD BE USED TO DETERMINE ESTRADIOL CONCENTRATION. Vital Signs Date Time Vital Sign Value Performing Clinician Consueloi trixie 03-20-2025 10:130400 Body mass index (BMI) [Ratio] 24.89 kg/m2 Bebeto Valencia MD Work Phone: [facility] 03-20-2025 10:13-0400 Body weight 69.94 kg Bebeto Valencia MD Work Phone: [facility] 03-20-2025 10:13-0400 Diastolic blood pressure 80 mm[Hg] Bebeto Valencia MD Work Phone: [facility] 03-20-2025 10:13-0400 Systolic blood pressure 120 mm[Hg] Bebeto Valencia MD Work Phone: [facility] 03-10-2025 14:31-0400 Body mass index (BMI) [Ratio] 24.69 kg/m2 Zina Jensen [employer]CNM Work Phone: [facility] 03-10-2025 14:31-0400 Body weight 69.4 kg Zina Jensen [employer] CLE[employer].C NM Work Phone: [facility] 03-10-2025 14:31-0400 Diastolic blood pressure 64 mm[Hg] Zina Jensen [employer].CNM Work Phone: [facility] 03-10-2025 14:31-0400 Systolic blood pressure 110 mm[Hg] Zina Jensen [employer].CNM Work Phone: [facility] 03-06-2025 14:15-0400 Body mass index (BMI) [Ratio] 25.34 kg/m2 Livia Denny MD Work Phone: [facility] 03-06-2025 14:15-0400 Body weight 71.2 kg Livia Denny MD Work Phone: [facility] 03-06-2025 14:15-0400 Diastolic blood pressure 72 mm[Hg] Livia Denny MD Work Phone: [facility] 03-06-2025 14:15-0400 Heart rate 87 /min Livia Denny MD Work Phone: [facility] 03-06-2025 14:15-0400 SaO2% (BldA) [Mass fraction] 100 % Livia Denny MD Work Phone: [facility] 03-06-2025 14:15-0400 Systolic blood pressure 115 mm[Hg] Livia Denny MD Work Phone: [facility] 03-05-2025 15:24-0400 Body mass index (BMI) [Ratio] 24.69 kg/m2 Valerio Leon MD Work Phone: [facility] 03-05-2025 15:24-0400 Body weight 69.4 kg Valerio Leon MD Work Phone: [facility] 03-05-2025 15:24-0400 Diastolic blood pressure 70 mm[Hg] Valerio Leon MD Work Phone: [facility] 03-05-2025 15:24-0400 Systolic blood pressure 128 mm[Hg] Valerio Leon MD Work Phone: [facility] 02-24-2025 16:14-0400 Body mass index (BMI) [Ratio] 24.95 kg/m2 Peter Teresa MD Work Phone: [facility] 02-24-2025 16:14-0400 Body weight 70.13 kg Peter Teresa MD Work Phone: [facility] 02-24-2025 16:14-0400 Diastolic blood pressure 76 mm[Hg] Peter Teresa MD Work Phone: [facility] 02-24-2025 16:14-0400 Systolic blood pressure 120 mm[Hg] Peter Teresa MD Work Phone: [facility] 02-10-2025 13:52-0400 Body mass index (BMI) [Ratio] 24.53 kg/m2 Vicky Engel [employer].CNM Work Phone: [facility] 02-10-2025 13:52-0400 Body weight 68.95 kg Vicky Engel [employer] .CNM Work Phone: [facility] 02-10-2025 13:52-0400 Diastolic blood pressure 60 mm[Hg] Vicky Engel [employer].CNM Work Phone: [facility] 02-10-2025 13:52-0400 Systolic blood pressure 118 mm[Hg] Vicky Plotdylon [employer].CNM Work Phone: [facility] 01-31-2025 16:06-0400 Body mass index (BMI) [Ratio] 24.21 kg/m2 Hanna Gonzales MD Work Phone: [facility] 01-31-2025 16:06-0400 Body weight 68.04 kg Hanan gloria MD Work Phone: [facility] 01-31-2025 16:06-0400 Diastolic blood pressure 60 mm[Hg] Hanna Gonzales MD Work Phone: [facility] 01-31-2025 16:06-0400 Systolic blood pressure 122 mm[Hg] Hanna Gonzales MD Work Phone: [facility] 01-17-2025 15:41-0400 Body mass index (BMI) [Ratio] 23.89 kg/m2 Zina Jensen APRN.CNM Work Phone: [facility] 01-17-2025 15:41-0400 Body weight 67.13 kg Zina Jensen APRN.C NM Work Phone: [facility] 01-17-2025 15:41-0400 Diastolic blood pressure 64 mm[Hg] Zina Jensen [employer]CNM Work Phone: [facility] 01-17-2025 15:41-0400 Systolic blood pressure 116 mm[Hg] Zina Mikey [employer]CNM Work Phone: [facility] 01-01-2025 08:06-0400 Body mass index (BMI) [Ratio] 23.89 kg/m2 Izna Mikey [employer]CNM Work Phone: [facility] 01-01-2025 08:06-0400 Body weight 67.13 kg Zina Jensen APRN.C NM Work Phone: [facility] 01-01-2025 08:06-0400 Diastolic blood pressure 62 mm[Hg] Zina Jensen [employer].CNM Work Phone: [facility] 01-01-2025 08:06-0400 Systolic blood pressure 110 mm[Hg] Zina Jensen [employer].CNM Work Phone: [facility] 12-04-2024 13:11-0400 Body mass index (BMI) [Ratio] 22.44 kg/m2 Vicky Plotts [employer].CNM Work Phone: [facility] 12-04-2024 13:11-0400 Body weight 63.05 kg Vicky Plotts [employer] .CNM Work Phone: [facility] 12-04-2024 13:11-0400 Diastolic blood pressure 64 mm[Hg] Vicky Plotts [employer].CNM Work Phone: [facility] 12-04-2024 13:11-0400 Systolic blood pressure 112 mm[Hg] Vicky Plotts [employer].CNM Work Phone: [facility] 11-08-2024 14:16-0500 Body mass index (BMI) [Ratio] 21.31 kg/m2 Zina Jensen [employer] CLE[employer].CNM Work Phone: [facility] 11-08-2024 14:16-0500 Body weight 59.88 kg Zina Jensen APRN.C NM Work Phone: [facility] 11-08-2024 14:16-0500 Diastolic blood pressure 62 mm[Hg] Zina Jensen [employer].CNM Work Phone: [facility] 11-08-2024 14:16-0500 Systolic blood pressure 110 mm[Hg] Zina Mikey [employer].CNM Work Phone: [facility] 10-15-2024 10:07-0500 Body mass index (BMI) [Ratio] 20.82 kg/m2 Zina Mikey [employer].CNM Work Phone: [facility] 10-15-2024 10:07-0500 Body weight 58.51 kg Zina Jensen [employer] CLE[employer]ER.C NM Work Phone: [facility] 10-15-2024 10:07-0500 Diastolic blood pressure 66 mm[Hg] Zina Jensen [employer].CNM Work Phone: [facility] 10-15-2024 10:07-0500 Systolic blood pressure 98 mm[Hg] Zina Jensen [employer].CNM Work Phone: [facility] 09-13-2024 15:26-0500 Body mass index (BMI) [Ratio] 20.34 kg/m2 Zina Jensen [employer].CNM Work Phone: [facility] 09-13-2024 15:26-0500 Body weight 57.15 kg Zina Mikey [employer] CLE[employer]ER.C NM Work Phone: [facility] 09-13-2024 15:26-0500 Diastolic blood pressure 60 mm[Hg] Zina Jensen [employer] CLE[employer].CNM Work Phone: [facility] 09-13-2024 15:26-0500 Systolic blood pressure 100 mm[Hg] Zina Jensen [employer] CLE[employer].CNM Work Phone: [facility] 09-03-2024 14:24-0500 Body mass index (BMI) [Ratio] 20.34 kg/m2 Zina Jensen [employer] CLE[employer].CNM Work Phone: [facility] 09-03-2024 14:24-0500 Body weight 57.15 kg Zina Mikey [employer] CLE[employer]ER.C NM Work Phone: [facility] 09-03-2024 14:24-0500 Diastolic blood pressure 64 mm[Hg] Zina Jensen [employer] CLE[employer]ER.CNM Work Phone: [facility] 09-03-2024 14:24-0500 Systolic blood pressure 118 mm[Hg] Zina Jensen [employer] CLE[employer]ER.CNM Work Phone: [facility] 08-20-2024 09:22-0500 Body mass index (BMI) [Ratio] 20.5 kg/m2 Zina Jensen [employer] CLE[employer].CNM Work Phone: [facility] 08-20-2024 09:22-0500 Body weight 57.61 kg Zina Jensen [employer] CLE[employer]ER.C NM Work Phone: [facility] 08-20-2024 09:22-0500 Diastolic blood pressure 60 mm[Hg] Zina Jensen [employer] CLE[employer]ER.CNM Work Phone: [facility] 08-20-2024 09:22-0500 Systolic blood pressure 112 mm[Hg] Zina Jensen [employer] CLE[employer]ER.CNM Work Phone: [facility] 08-12-2024 09:21-0500 Body height 167.6 cm Zina Jensen [employer] CLE[employer]ER.C NM Work Phone: [facility] 08-12-2024 09:21-0500 Body mass index (BMI) [Ratio] 20.18 kg/m2 Zina Jensen [employer] CLE[employer]ER.CNM Work Phone: [facility] 08-12-2024 09:21-0500 Body weight 56.7 kg Zina Jensen [employer] CLE[employer]ER.C NM Work Phone: [facility] 08-12-2024 09:21-0500 Diastolic blood pressure 60 mm[Hg] Zina Jensen [employer] CLE[employer]ER.CNM Work Phone: [facility] 08-12-2024 09:21-0500 Systolic blood pressure 108 mm[Hg] Zina Jensen [employer] CLE[employer]ER.CNM Work Phone: [facility] 04-02-2024 16:08-0400 Body mass index (BMI) [Ratio] 19.68 kg/m2 Brad Rodriguez MD Work Phone: [facility] 04-02-2024 16:08-0400 Body weight 54.9 kg Brad Rodriguez MD Work Phone: [facility] 04-02-2024 16:08-0400 Diastolic blood pressure 64 mm[Hg] Brad Rodriguez MD Work Phone: [facility] 04-02-2024 16:08-0400 Heart rate 98 /min Brad Rodriguez MD Work Phone: [facility] 04-02-2024 16:08-0400 Systolic blood pressure 119 mm[Hg] Brad Rodriguez MD Work Phone: [facility] 05-02-2023 10:29-0400 Body height 167 cm Ludivina Flower MD Work Phone: [facility] 05-02-2023 10:29-0400 Body weight 53.98 kg Ludivina Flower MD Work Phone: [facility] 05-02-2023 10:29-0400 Diastolic blood pressure 77 mm[Hg] Ludivina Flower MD Work Phone: [facility] 05-02-2023 10:29-0400 Heart rate 90 /min Ludivina Flower MD Work Phone: [facility] 05-02-2023 10:29-0400 SaO2% (BldA) [Mass fraction] 100 % Ludivina Flower MD Work Phone: [facility] 05-02-2023 10:29-0400 Systolic blood pressure 114 mm[Hg] Ludivina Flower MD Work Phone: [facility] 03-28-2023 08:02-0400 Body height 167.6 cm Nurse Beac Work Phone: [facility] 03-28-2023 08:02-0400 Body weight 54 kg Nurse Beac Work Phone: [facility] 03-28-2023 08:02-0400 Diastolic blood pressure 73 mm[Hg] Nurse Beac Work Phone: [facility] 03-28-2023 08:02-0400 Heart rate 95 /min Nurse Beac Work Phone: [facility] 03-28-2023 08:02-0400 SaO2% (BldA) [Mass fraction] 100 % Nurse Beac Work Phone: [facility] 03-28-2023 08:02-0400 Systolic blood pressure 122 mm[Hg] Nurse Beac Work Phone: [facility] 03-28-2023 07:29-0400 Body height 167.6 cm Racheal Bhatt [employer] Work Phone: [facility] 03-28-2023 07:29-0400 Body weight 54 kg Racheal Bhatt [employer] Work Phone: [facility] 03-28-2023 07:29-0400 Diastolic blood pressure 73 mm[Hg] Racheal Bhatt [employer]GER [employer] Work Phone: [facility] 03-28-2023 07:29-0400 Heart rate 95 /min Racheal Bhatt [employer] Work Phone: [facility] 03-28-2023 07:29-0400 SaO2% (BldA) [Mass fraction] 100 % Racheal Bhatt [employer] Work Phone: [facility] 03-28-2023 07:29-0400 Systolic blood pressure 122 mm[Hg] Racheal Bhatt [employer]GER [employer] Work Phone: [facility] 12-05-2022 09:58-0400 Body height 167.6 cm Eileen House [employer] Work Phone: [facility] 12-05-2022 09:58-0400 Body mass index (BMI) [Ratio] 18.88 kg/m2 Eileen House [employer] Work Phone: [facility] 12-05-2022 09:58-0400 Body temperature 97.9 [degF] Eileen House [employer] Work Phone: [facility] 12-05-2022 09:58-0400 Body weight 53.07 kg Eileen House [employer] Work Phone: [facility] 12-05-2022 09:58-0400 Diastolic blood pressure 77 mm[Hg] Eileen House [employer] Work Phone: [facility] 12-05-2022 09:58-0400 Heart rate 77 /min Eileen House [employer] Work Phone: [facility] 12-05-2022 09:58-0400 Systolic blood pressure 128 mm[Hg] Eileen House [employer] Work Phone: [facility] Encounters Encounter Date Encounter Type Care Provider Facility Start: 03-20-2025 End: 03-20-2025 Patient encounter procedure Bebeto Valencia MD Work Phone: OB/Gynecology Comment on above: 39 weeks gestation o f (HCC) (Primary Dx); Supervision of high risk in third trimester (HCC); Positive GBS test; Cavernoma or capillary telangiectasia Start: 03-20-2025 End: 03-20-2025 ambulatory CECILE RUTH Facility:[facility] Start: 03-14-2025 End: 03-14-2025 ambulatory Zina Jensen APRN.CNM Work Phone: OB/Gynecology Comment on above: Amoxicillin allergy skin testing results Start: 03-10-2025 End: 03-10-2025 ambulatory Lucinda Velazquez MA [facility] Start: 03-10-2025 End: 03-10-2025 Patient encounter procedure Lucinda Velazquez MA [facility] Comment on above: Population Health Na vigation Outreach (Ob/peds) Supervision of high risk in third trimester (HCC) (Primary Dx); 38 weeks gestation of (HCC); Cavernoma; Positive GBS test; Family history of congenital heart defect; Penicillin allergy; Rh negative state in antepartum period, first trimester (HCC); ERICK (generalized anxiety disorder); PTSD (post-traumatic stress disorder); History of posttraumatic stress disorder (PTSD) Start: 03-06-2025 End: 03-06-2025 Patient encounter procedure Livia Denny MD Work Phone: NEUROLOGY Comment on above: Cavernoma or capilla ry telangiectasia (Primary Dx) Start: 03-06-2025 End: 03-06-2025 ambulatory UNKNOWN PROVIDER Facility:[facility] Start: 03-05-2025 End: 03-05-2025 Patient encounter procedure Valerio Leon MD Work Phone: OB/Gynecology Comment on above: Supervision of high risk in third trimester (HCC) (Primary Dx); 37 weeks gestation of (HCC); Positive GBS test; Adverse effect of penicillamine, initial encounter Start: 03-05-2025 End: 03-05-2025 ambulatory TUSHAR CENTENO Facility:[facility] Start: 03-03-2025 End: 03-24-2025 Telephone encounter Livia Denny MD Work Phone: [facility] Comment on above: Opened In Error Appointment; Imaging /Records Start: 03-03-2025 ambulatory Peter Teresa Facility:[facility] Start: 02-24-2025 End: 02-24-2025 Patient encounter procedure Peter Teresa MD Work Phone: OB/Gynecology Comment on above: Encounter for superv ision of normal first in third trimester (HCC) (Primary Dx); 28 weeks gestation of (HCC); 36 weeks gestation of (HCC); Cavernoma; History of intestinal surgery; Encounter for supervision of normal first in first trimester (HCC) Start: 02-24-2025 End: 02-24-2025 [facility] Start: 02-19-2025 End: 02-19-2025 [facility] Start: 02-14-2025 End: 02-24-2025 Telephone encounter Vicky Engel APRN.CNM Work Phone: OB/Gynecology Comment on above: Consult Start: 02-12-2025 End: 02-12-2025 Patient encounter procedure Misbah Chen MD Work Phone: Pediatric Cardiology Start: 02-12-2025 End: 02-12-2025 ambulatory Misbah Chen MD Work Phone: Pediatric Cardiology Start: 02-10-2025 End: 02-10-2025 Patient encounter procedure Vicky Perdylon WAGNERCNM Work Phone: OB/Gynecology Comment on above: 34 weeks gestation o f (HCC) (Primary Dx); Encounter for supervision of normal first in third trimester ([facility]); ERICK (generalized anxiety disorder); History of bowel resection; Cavernoma or capillary telangiectasia Start: 02-10-2025 End: 02-10-2025 [facility] Start: 02-07-2025 End: 02-11-2025 ambulatory Zina Jensen APRN.CNM Work Phone: OB/Gynecology Start: 02-07-2025 End: 02-11-2025 Patient encounter procedure Zina Jensen APRN.CNM Work Phone: OB/Gynecology Comment on above: Echo and Neuro logy Consult Start: 02-06-2025 End: 02-06-2025 Telephone encounter Zina Jensen APRN.CNM Work Phone: OB/Gynecology Comment on above: Forms Start: 02-05-2025 End: 02-05-2025 Telephone encounter Zina Jensen APRN.CNM Work Phone: OB/Gynecology Comment on above: FMLA Paperwork Start: 01-31-2025 End: 01-31-2025 Patient encounter procedure Hanna Gonzales MD Work Phone: OB/Gynecology Comment on above: Encounter for superv ision of normal first in third trimester (HCC) (Primary Dx); History of bowel resection; Cavernoma or capillary telangiectasia; 32 weeks gestation of (HCC) Start: 01-31-2025 End: 01-31-2025 ambulatory TUSHAR CENTENO Facility:[facility] Start: 01-23-2025 End: 03-25-2025 Follow-up encounter Lydia Naik MD Work Phone: OB/Gynecology Start: 01-21-2025 End: 03-23-2025 Follow-up encounter Zina Jensen APRN.CNM Work Phone: OB/Gynecology Start: 01-20-2025 End: 03-22-2025 Follow-up encounter Valerio Leon MD Work Phone: OB/Gynecology Start: 01-17-2025 End: 01-17-2025 ambulatory [facility] Facility:[facility] Start: 01-17-2025 End: 01-17-2025 Patient encounter procedure Zina Jensen APRN.CNM Work Phone: OB/Gynecology Comment on above: Encounter for superv ision of normal first in second trimester ([facility]) (Primary Dx); History of posttraumatic stress disorder (PTSD); Family history of congenital heart defect; 30 weeks gestation of ([facility]); PTSD (post-traumatic stress disorder); ERICK (generalized anxiety disorder); Family history of hypothyroidism Encounter for randal hicks screening for malformation using ultrasound ([facility]) (Primary Dx); 30 weeks gestation of ([facility]) Start: 01-17-2025 End: 01-17-2025 [facility] Facility:[facility] Start: 01-16-2025 End: 01-16-2025 Telephone encounter Jossy Lara MD Work Phone: Pediatric Cardiology Comment on above: Care Coordination (F etal echo f/u) Maternal care for (s uspected) abnormality and damage, unspecified, fetus 1 (HCC) (Primary Dx) Start: 01-03-2025 End: 01-03-2025 Telephone encounter Zina Jensen APRN.CNM Work Phone: OB/Gynecology Comment on above: Medical record jerome from [facility] Start: 01-01-2025 End: 03-03-2025 Follow-up encounter Vicky Engel APRN.CNM Work Phone: OB/Gynecology Start: 01-01-2025 End: 01-01-2025 Patient encounter procedure Zina Jensen APRN.CNM Work Phone: OB/Gynecology Comment on above: Encounter for superv ision of normal first in second trimester (HCC) (Primary Dx); 28 weeks gestation of (HCC); History of posttraumatic stress disorder (PTSD); Generalized anxiety disorder; Family history of congenital heart defect; Rh negative state in antepartum period, first trimester ([facility]); History of asthma; Excessive weight gain in , third trimester ([facility]); Cavernoma or capillary telangiectasia Start: 01-01-2025 End: 01-01-2025 [facility] Start: 12-24-2024 End: 12-24-2024 ambulatory Zina Jensen APRN.CNM Work Phone: OB/Gynecology Comment on above: Glucose Tolerance [facility] Start: 12-04-2024 End: 12-04-2024 ambulatory [facility] Facility:[facility] Start: 12-04-2024 End: 12-04-2024 Patient encounter procedure Vicky Engel APRN.CNM Work Phone: OB/Gynecology Comment on above: Encounter for superv ision of normal first in second trimester (HCC) (Primary Dx); History of posttraumatic stress disorder (PTSD); Rh negative state in antepartum period, first trimester ([facility]); ERICK (generalized anxiety disorder); Family history of congenital heart defect; 24 weeks gestation of ([facility]); Screening for diabetes mellitus Start: 11-19-2024 End: 01-19-2025 Follow-up encounter Zina Jensen APRN.CNM Work Phone: OB/Gynecology Start: 11-19-2024 End: 11-19-2024 Patient encounter procedure Jossy Lara MD Work Phone: Pediatric Cardiology Start: 11-19-2024 End: 11-19-2024 ambulatory Jossy Lara MD Work Phone: Pediatric Cardiology Start: 11-11-2024 End: 01-11-2025 Follow-up encounter Valerio Leon MD Work Phone: OB/Gynecology Start: 11-08-2024 End: 11-08-2024 ambulatory TUSHAR ANDREI CENTENO Facility:[facility] Start: 11-08-2024 End: 11-08-2024 Patient encounter procedure Zina Jensen APRN.CNM Work Phone: OB/Gynecology Comment on above: Encounter for superv ision of normal first in second trimester (Primary Dx); 20 weeks gestation of ; History of posttraumatic stress disorder (PTSD); ERICK (generalized anxiety disorder); Family history of congenital heart defect; Rh negative state in antepartum period, first trimester; History of asthma Encounter for anatomic survey (Primary Dx); 20 weeks gestation of Start: 11-04-2024 End: 11-04-2024 ambulatory Peter Teresa Facility:[facility] Start: 10-15-2024 End: 10-15-2024 ambulatory TUSHAR ANDREI GODAISLINNANTONIAVLADIMIR Facility:[facility] Start: 10-15-2024 End: 10-15-2024 Patient encounter procedure Zina Jensen APRN.CNM Work Phone: OB/Gynecology Comment on above: Encounter for superv ision of normal first in second trimester (Primary Dx); 17 weeks gestation of ; History of posttraumatic stress disorder (PTSD); ERICK (generalized anxiety disorder); Family history of congenital heart defect; Rh negative state in antepartum period, first trimester; History of asthma Start: 09-17-2024 End: 09-17-2024 ambulatory TUSHAR ANDREI GODAISLINNANTONIAVLADIMIR Facility:[facility] Start: 09-13-2024 End: 09-13-2024 ambulatory TUSHAR MARIEEANNAbran ROWEAISLINNANTONIAVLADIMIR Facility:[facility] Start: 09-13-2024 End: 09-13-2024 ambulatory TUSHAR CENTENO Facility:[facility] Start: 09-13-2024 End: 09-13-2024 Patient encounter procedure Whi Tech 1 Chute [employer] [facility] Maternal Medicine Comment on above: Encounter for (NT) n uchal translucency scan (Primary Dx); with uncertain dates, antepartum; Encounter for routine screening for malformation using ultrasonics Encounter for superv ision of normal first in first trimester (Primary Dx); 12 weeks gestation of ; with uncertain dates, antepartum; History of posttraumatic stress disorder (PTSD); History of asthma; ERICK (generalized anxiety disorder) Start: 09-03-2024 End: 09-03-2024 Patient encounter procedure Zina Jensen APRN.CNM Work Phone: OB/Gynecology Comment on above: Urinary frequency (P rimary Dx); Cloudy urine Start: 09-03-2024 End: 09-03-2024 ambulatory [facility] Facility:[facility] Start: 09-02-2024 End: 09-02-2024 Telephone encounter Vicky Engel APRN.CNM Work Phone: OB/Gynecology Comment on above: OB Possible UTI Start: 08-20-2024 End: 08-20-2024 ambulatory [facility] Facility:[facility] Start: 08-20-2024 End: 08-20-2024 Patient encounter procedure Zina Jensen APRN.CNM Work Phone: OB/Gynecology Comment on above: 9 weeks gestation of (Primary Dx); Family history of congenital heart defect Start: 08-12-2024 End: 08-12-2024 ambulatory [facility] Facility:[facility] Start: 08-12-2024 End: 08-12-2024 ambulatory [facility] Facility:[facility] Start: 08-12-2024 End: 08-12-2024 Patient encounter procedure Zina Jensen APRN.CNM Work Phone: OB/Gynecology Comment on above: with uncer tain dates, antepartum (Primary Dx); Screening for cervical cancer; Screening for human papillomavirus (HPV); History of asthma; History of posttraumatic stress disorder (PTSD); ERICK (generalized anxiety disorder); History of concussion; Family history of congenital heart defect; Encounter for supervision of normal first in first trimester; Spotting during ; History of infertility Start: 07-31-2024 End: 07-31-2024 Telephone encounter Zina Jensen APRN.CNM Work Phone: OB/Gynecology Comment on above: Appointment Start: 05-09-2024 End: 05-09-2024 Emergency department patient visit Tushar Centeno Facility:[facility] Start: 04-10-2024 ambulatory Brad Rodriguez MD Work Phone: Reproductive Endocrinology Infertility Comment on above: IVF Plan Update and Advice Start: 04-08-2024 Telephone encounter Brad lewis MD Work Phone: Reproductive Endocrinology Infertility Comment on above: pt needs notes from her apt on 04/02 sent the mt Start: 04-02-2024 End: 04-02-2024 [facility] Start: 04-02-2024 End: 04-02-2024 Patient encounter procedure Brad Rodriguez MD Work Phone: Reproductive Endocrinology Infertility Comment on above: Female infertility ( Primary Dx); Fertility testing Start: 11-24-2023 ambulatory Lalit Pritchard MD Work Phone: [facility] Start: 11-24-2023 Letter encounter Lalit Pritchard MD Work Phone: Reproductive Endocrinology Infertility Comment on above: Requesting inform[facility] onal letter for [facility] Start: 09-18-2023 End: 09-18-2023 Patient encounter procedure Lalit Pritchard MD Work Phone: Reproductive Endocrinology Infertility Comment on above: No-show for appointm ent (Primary Dx) Start: 09-18-2023 End: 09-18-2023 Telemedicine consultation with patient Lalit Pritchard MD Work Phone: [facility] Start: 07-21-2023 Telephone encounter Lalit Pritchard MD Work Phone: Reproductive Endocrinology Infertility Start: 07-13-2023 Telephone encounter Lalit Pritchard MD Work Phone: Reproductive Endocrinology Infertility Comment on above: Cost of FET as self pay patient; Karla posadas fet/please follow up with patient Start: 07-04-2023 ambulatory CHELSY Masters ty:[facility] Start: 07-03-2023 ambulatory Kym Lin MD Work Phone: Reproductive Endocrinology Infertility Comment on above: Amoxicillin allergy testing Start: 07-03-2023 E-mail encounter stacie chen caregiver Kym Gtz MD Work Phone: [facility] Start: 06-22-2023 End: 06-22-2023 Patient encounter procedure Andrology Consumer Relations Specialist Work Phone: Andrology Lab Comment on above: Female infertility ( Primary Dx) examinatio n or test, unconfirmed (Primary Dx); Infertility, female Start: 06-21-2023 Telephone encounter Pablo [facility] Lab Comment on above: Patient Update Start: 06-11-2023 ambulatory Que boggs MD Work Phone: Reproductive Endocrinology Infertility Comment on above: Research study parti cipation Start: 06-11-2023 E-mail encounter stacie chen caregiver Que Zelaya MD Work Phone: [facility] Start: 05-31-2023 ambulatory CHELSY Graff lity:[facility] Start: 05-31-2023 ambulatory CHELSY Graff lity:[facility] Start: 05-31-2023 End: 05-31-2023 Patient encounter procedure Chelsy Perry [facility] Work Phone: Division of Human Genetics Comment on above: Family history of br east cancer (Primary Dx) Start: 05-19-2023 ambulatory Lalit Pritchard MD Work Phone: Reproductive Endocrinology Infertility Comment on above: Medical clearance fo r Evaluation for chest pain Start: 05-15-2023 Telephone encounter Lalit Pritchard MD Work Phone: Reproductive Endocrinology Infertility Comment on above: FET cleared? Next Steps Start: 05-11-2023 Telephone encounter Brad lewis MD Work Phone: [facility] Comment on above: Patient Question; Pa tient Update Start: 05-09-2023 Telephone encounter Lalit Pritchard MD Work Phone: Reproductive Endocrinology Infertility Comment on above: ques on pgta testing ; Patient requesting to order meds Start: 05-02-2023 End: 05-02-2023 Patient encounter procedure Ludivina Flower MD Work Phone: Reproductive Endocrinology Infertility Comment on above: Pre-procedural labor atory examination (Primary Dx); Female infertility Start: 05-02-2023 End: 05-02-2023 Patient encounter status Ludivina Flower MD Work Phone: [facility] Start: 04-27-2023 Telephone encounter Lalit Pritchard MD Work Phone: Reproductive Endocrinology Infertility Comment on above: lmp 04/27 Karla farris is for fet Start: 04-21-2023 End: 05-04-2023 Patient encounter procedure Andrology Consumer Relations Specialist Work Phone: Andrology Lab Comment on above: Female infertility ( Primary Dx) Start: 04-21-2023 Telephone encounter Lalit Pritchard MD Work Phone: Reproductive Endocrinology Infertility Comment on above: she pt waiting for call back Start: 04-20-2023 Telephone encounter Patricia Gregory Andrology Lab Comment on above: Patient Update Start: 04-19-2023 Telephone encounter Pablo Smiley [facility] Comment on above: Patient Update Start: 04-16-2023 ambulatory [facility] Andrology Lab Comment on above: day 2 update Start: 04-16-2023 E-mail encounter fro m caregiver [facility] Start: 04-15-2023 ambulatory [facility] Provider Andrology Lab Comment on above: fertilization Start: 04-15-2023 E-mail encounter fro m caregiver [facility] Start: 04-14-2023 End: 04-14-2023 Patient encounter procedure Andrology Consumer Relations Specialist Work Phone: Andrology Lab Comment on above: Primary female infer tility (Primary Dx) Start: 04-13-2023 End: 04-13-2023 Nursing evaluation of patient and report Nurse Haydee [facility] Work Phone: Reproductive Endocrinology Infertility Comment on above: Female infertility Start: 04-12-2023 End: 04-12-2023 Nursing evaluation of patient and report Brad Rodriguez MD Work Phone: Reproductive Endocrinology Infertility Comment on above: Female infertility Start: 04-11-2023 End: 04-11-2023 Nursing evaluation of patient and report Nurse Haydee [facility] Work Phone: Reproductive Endocrinology Infertility Comment on above: Female infertility Start: 04-07-2023 End: 04-07-2023 Nursing evaluation of patient and report Nurse Haydee [facility] Work Phone: Reproductive Endocrinology Infertility Comment on above: Female infertility Start: 04-06-2023 ambulatory Jerilyn dave [employer]ER[employer] Work Phone: Reproductive Endocrinology Infertility Start: 04-04-2023 ambulatory Lalit Pritchard MD Work Phone: [facility] Start: 04-04-2023 End: 04-04-2023 Nursing evaluation of patient and report Nurse Haydee [facility] Work Phone: Reproductive Endocrinology Infertility Comment on above: Female infertility Time sensitive Leupr olide Order clarification Start: 04-04-2023 Telephone encounter Lalit Pritchard MD Work Phone: Reproductive Endocrinology Infertility Comment on above: insurance update Start: 04-04-2023 End: 04-04-2023 Patient encounter procedure Racheal Bhatt [employer] Work Phone: Reproductive Endocrinology Infertility Comment on above: Preop examination (P rimary Dx); Encounter for male factor infertility in female patient Start: 04-04-2023 End: 04-04-2023 Preprocedural examination done Rcaheal Bhatt APRN.MANAGER LIFE Work Phone: [facility] Work Phone: Start: 03-28-2023 End: 03-28-2023 Nursing evaluation of patient and report Nurse Haydee [facility] Work Phone: Reproductive Endocrinology Infertility Comment on above: Female infertility Start: 03-22-2023 ambulatory Lalit Pritchard MD Work Phone: Reproductive Endocrinology Infertility Comment on above: Baseline Apt confirm ation Baseline apt Start: 03-20-2023 ambulatory Lalit Pritchard MD Work Phone: Reproductive Endocrinology Infertility Comment on above: IVF Baseline Apt /12/25 Start: 03-03-2023 Telephone encounter Racheal Dominguez [employer] Work Phone: Reproductive Endocrinology Infertility Comment on above: [facility] Start: 02-24-2023 Telephone encounter Lalit Pricthard MD Work Phone: Reproductive Endocrinology Infertility Comment on above: Refill Request Patient Update Start: 02-23-2023 Telephone encounter Lalit Pritchard MD Work Phone: Reproductive Endocrinology Infertility Comment on above: Patient Update Start: 02-21-2023 Telephone encounter Lalit Pritchard MD Work Phone: Reproductive Endocrinology Infertility Comment on above: karla was able to g et appt withDr Vig; Missed Karla's call Start: 12-19-2022 ambulatory [facility] Provider Reproducti ve Endocrinology Infertility Comment on above: Attach records Start: 12-19-2022 E-mail encounter fro m caregiver [facility] Provider LINNEA NAVARRETE Start: 12-14-2022 ambulatory Lalit Pritchard MD Work Phone: Reproductive Endocrinology Infertility Comment on above: Sperm Sample Concern s Start: 12-13-2022 Telephone encounter Lalit Pritchard MD Work Phone: Reproductive Endocrinology Infertility Comment on above: Karla/katharina case Start: 12-07-2022 End: 12-07-2022 Nursing evaluation of patient and report Nurse Haydee [facility] Work Phone: Reproductive Endocrinology Infertility Comment on above: Fertility testing (P rimary Dx) Start: 12-05-2022 ambulatory EILEEN Waite ity:[facility] Start: 12-05-2022 End: 12-05-2022 Office outpatient new 45 minutes Eileen House [employer] Work Phone: Division of Surgical Oncology Comment on above: Fibrocystic breast c hanges, bilateral (Primary Dx); Family history of breast cancer; Family history of prostate cancer; At high risk for breast cancer Start: 12-01-2022 ambulatory CHELSY Masters ty:[facility] Start: 11-11-2022 Telephone encounter Lalit Pritchard MD Work Phone: Reproductive Endocrinology Infertility Comment on above: IVF clearance Start: 10-25-2022 ambulatory Lalit Pritchard MD Work Phone: Reproductive Endocrinology Infertility Comment on above: Continue IVF with Yo ur Team Start: 10-25-2022 Telephone encounter Lalit Pritchard MD Work Phone: Reproductive Endocrinology Infertility Comment on above: IVF#1; medical relea se form Start: 10-24-2022 End: 10-24-2022 ambulatory Lalit Pritchard MD Work Phone: Reproductive Endocrinology Infertility Comment on above: Reproductive mgmt, i nfertility due to male factor (Primary Dx); Patient desires ; Encounter for fertility planning Start: 10-24-2022 End: 10-24-2022 Telemedicine consultation with patient Lalit Pritchard MD Work Phone: [facility] Start: 02-08-2022 End: 02-08-2022 Patient encounter procedure [facility] [place] [employer] secretary Off Procedures Date Procedure Procedure Detail Performing Clinician Start: 03-20-2025 Urnls dip stick/tabl et rgnt non-auto w/o micrscp Bebeto Valencia MD Work Phone: Start: 03-10-2025 Urnls dip stick/tabl et rgnt auto w/o microscopy Zina Jensen APRN.CNM Work Phone: Start: 03-05-2025 Urnls dip stick/tabl et rgnt non-auto w/o micrscp Valerio Leon MD Work Phone: Start: 02-24-2025 Urnls dip stick/tabl et rgnt non-auto w/o micrscp Peter Teresa MD Work Phone: Start: 02-14-2025 H/O: surgery History of intestinal surgery Vicky Engel SHALLOT CLEANER.CNM Work Phone: Start: 01-17-2025 Us preg uterus after 1st trimest 1/ gestation Zina Mikey MORELAND.CNM Work Phone: Start: 01-01-2025 Antibody screen TUSHAR SPENCER Comment on above: Order Comment: Speci men Type: BLOOD SPECIMENOrdering Facility: [facility] Address: [address] [place] [address] Performed By: #### T SPN ####CC MAIN BLOOD BANKCLIA [id number] [address] [place] Start: 11-08-2024 Us preg uterus after 1st trimest / gestation Zinaestela Jensen APRN.CNM Work Phone: Start: 09-13-2024 Us nuchal translucency 1st gestation Zinaestela Jensen APRN.CNM Work Phone: Start: 09-03-2024 Culture bacterial quanttative colony count urine Zina Mikey MORELAND.CNM Work Phone: Start: 09-03-2024 Urnls dip stick/tabl et rgnt auto w/o microscopy Zina Mikey MORELAND.CNM Work Phone: Start: 08-12-2024 Antibody screen TUSHAR SPENCER Comment on above: Order Comment: Speci men Type: BLOOD SPECIMENOrdering Facility: [facility] Address: [address] [place] [address] Performed By: #### T SPN ####CC MAIN BLOOD BANKCLIA [id number] [address] [place] Start: 08-12-2024 Us uterus l imited 1/> fetuses Zinaestela Jensen APRN.CNM Work Phone: Start: 08-29-2023 Saline infus sonohysterography w/color doppler Racheal Dudziak SHALLOT CLEANER.[facility] Work Phone: Start: 05-02-2023 Urine test visual color cmprsn meths Racheal Dudziak SHALLOT CLEANER.[facility] Work Phone: Start: 04-13-2023 Gonadotropin chorion ic quantitative Brad Rodriguez MD Work Phone: Start: 04-12-2023 Us pelvic nonobstetr ic image dcmtn limited/f/u Racheal Dudziak [employer] Work Phone: Start: 04-12-2023 Assay of estradiol Blanca susie Dudziak SHALLOT CLE[employer]ER.[facility] Work Phone: Start: 04-11-2023 Us pelvic nonobstetr ic image dcmtn limited/f/u Racheal Dudziak SHALLOT CLEANER.[facility] Work Phone: Start: 04-11-2023 Assay of estradiol Stirling susie Dudziak SHALLOT CLEANER.[facility] Work Phone: Start: 04-07-2023 Us pelvic nonobstetr ic image dcmtn limited/f/u Racheal Dudziak SHALLOT CLEANER.[facility] Work Phone: Start: 04-07-2023 Assay of estradiol Stirling susie Dudziak SHALLOT CLEANER.[facility] Work Phone: Start: 04-04-2023 Us pelvic nonobstetr ic image dcmtn limited/f/u Racheal Dudziak SHALLOT CLEANER.[facility] Work Phone: Start: 04-04-2023 Assay of estradiol Stirling susie Dudziak SHALLOT CLEANER.[facility] Work Phone: Start: 03-28-2023 Us pelvic nonobstetr ic image dcmtn limited/f/u Racheal Dudziak SHALLOT CLEANER.[facility] Work Phone: Start: 03-28-2023 Assay of estradiol Stirling susie Dudziak SHALLOT CLEANER.[facility] Work Phone: Start: 05-03-2022 ANTI MULLERIAN HORMONE [facility] Provider H/O: surgery History of intestinal surgery Peter Teresa MD Work Phone: Plan of Treatment Date Care Activity Detail Author Start: 05-19-2033 Tetanus vaccination TETANUS [facility] Start: 05-19-2033 Urine microalbumin profile DTaP,Tdap,Td Vaccine (9 - Td or Tdap) [facility] Start: 08-12-2029 Screening for malign ant neoplasm of cervix Cervical Cancer Screening [facility] Start: 05-05-2025 Influenza vaccination [facility] Start: 03-26-2025 End: 03-26-2025 Patient encounter procedure 03/26/2025 9:45 AM EDT Routine Office Visit OB/Gynecology [address] [place] [address] Vicky Engel APRN.CN [address] [place] [address] OB OB/Gynecology Comment on above: OB Start: 03-24-2025 End: 03-24-2025 Patient encounter procedure 03/24/2025 2:30 PM EDT Routine Office Visit OB/Gynecology [address] [place] [address] Tushar Cervantes APRN.MANAGER LIFE [address] [place] [address] OB OB/Gynecology Comment on above: OB Start: 03-20-2025 End: 03-20-2025 Patient encounter procedure 03/20/2025 3:45 PM EDT Routine Office Visit OB/Gynecology [address] [place] [address] Tushar Cervantes APRN.MANAGER LIFE [address] [place] [address] OB OB/Gynecology Comment on above: OB Start: 03-20-2025 End: 03-20-2025 Patient encounter procedure 03/20/2025 10:20 AM EDT Routine Office Visit OB/Gynecology [address] [place] [address] Bebeto Valencia MD [address] [place] [address] OB OB/Gynecology Comment on above: OB Start: 03-14-2025 End: 03-14-2025 Patient encounter procedure 03/14/2025 11:15 AM EDT Routine Office Visit OB/Gynecology [address] [place] [address] Zina Jensen APRN.CN [address] [place] [address] OB OB/Gynecology Comment on above: OB Start: 03-12-2025 End: 03-12-2025 ambulatory 03/12/2025 10:45 AM EDT [facility] [address] [place] [address] Kathy Toledo MD [address] [place], [place] [id number] Adverse effect of penicillamine, initial encounter [T50.6X5A] Allergy Comment on above: Adverse effect of pe nicillamine, initial encounter [T50.6X5A] Start: 03-06-2025 End: 03-06-2025 Patient encounter procedure 03/06/2025 2:00 PM EDT Office Visit NEUROLOGY [address] [place] [address] Livia Denny MD [address] [place], [place] [id number] 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 NEUROLOGY Comment on above: provisional diagnosi s is other malformations of cerebral vessels. Start: 03-05-2025 End: 03-05-2025 Patient encounter procedure 03/05/2025 3:10 PM EDT Routine Office Visit OB/Gynecology [address] [place] [address] Valerio Leon MD [address] [place] [address] OB OB/Gynecology Comment on above: OB Start: 02-24-2025 End: 02-24-2025 Patient encounter procedure 02/24/2025 4:20 PM EDT Routine Office Visit OB/Gynecology [address] [place] [address] Peter Teresa MD [address] [place] [address] OB OB/Gynecology Comment on above: OB Start: 02-12-2025 End: 02-12-2025 Follow-up encounter 02/12/2025 10:30 AM EDT Procedure Pediatric Cardiology [address] [address] [address] Misbah Chen MD [address] [place] [address] Follow up of known or suspected cardiac defect Pediatric Cardiology Comment on above: Follow up of known o r suspected cardiac defect Start: 02-12-2025 End: 02-12-2025 Patient encounter procedure Pediatric Cardiology Comment on above: Follow up of known o r suspected cardiac defect f/u family hx CHD Fo llow up of known or suspected cardiac defect Start: 02-10-2025 End: 02-10-2025 ambulatory 02/10/2025 2:30 PM EDT Results Only Giorgi Decker [facility] [address] [place] [address] [place] [facility] Start: 02-10-2025 End: 02-10-2025 Patient encounter procedure 02/10/2025 1:45 PM EDT Routine Office Visit OB/Gynecology [address] [place] [address] Vicky Engel APRN.CN [address] [place] [address] OB OB/Gynecology Comment on above: OB Start: 02-04-2025 End: 02-04-2025 ambulatory 02/04/2025 11:00 AM EDT Procedure Pediatric Cardiology [address] [place] [address] Jossy Lraa MD [address] [place] [address] single 30 weeks Pediatric Cardiology Comment on above: single 30 week s Start: 02-04-2025 End: 02-04-2025 Patient encounter procedure 02/04/2025 11:00 AM EDT Office Visit Pediatric Cardiology [address] [place] [address] single 30 weeks Pediatric Cardiology Comment on above: single 30 week s Start: 01-31-2025 End: 01-31-2025 Patient encounter procedure 01/31/2025 3:50 PM EDT Routine Office Visit OB/Gynecology [address] [place] [address] Hanna Randall MD [address] [place] [address] Return in 2 weeks OB/Gynecology Comment on above: Return in 2 weeks Start: 01-29-2025 End: 01-29-2025 ambulatory 01/29/2025 9:00 AM EDT [address] [address] Ger Javier MD [address] [place] [address] Abnormal imagining/ 28 weeks gestation of (HCC) [Z3A.28] [facility] [place] [place] Comment on above: Abnormal imagining/ 28 weeks gestation of (HCC) [Z3A.28] Start: 01-17-2025 End: 01-17-2025 Patient encounter procedure Maternal Medicine Comment on above: Growth Growth/OB Start: 01-17-2025 End: 04-18-2025 25-hydroxyvitamin D3 [Mass/volume] in Serum or Plasma [facility] Comment on above: Expected: 01/17/2025 , Expires: 04/18/2025 Start: 01-17-2025 End: 04-18-2025 Thyrotropin [Units/volume] in Serum or Plasma [facility] Comment on above: Expected: 01/17/2025 , Expires: 04/18/2025 Start: 01-17-2025 End: 04-18-2025 Toxoplasma gondii IgG Ab [Units/volume] in Serum [facility] Work Phone: Comment on above: Expected: 01/17/2025 , Expires: 04/18/2025 Start: 01-01-2025 End: 01-01-2026 OBSTETRIC ULTRASOUND WHI OBSTETRIC ULTRASOUND WHI Anc Imaging Routine Encounter for supervision of normal first in second trimester ([facility]) Expected: 01/01/2025, Expires: 01/01/2026 [facility] Work Phone: Comment on above: Expected: 01/01/2025 , Expires: 01/01/2026 Start: 01-01-2025 End: 01-01-2025 Patient encounter procedure 01/01/2025 8:00 AM EDT Routine Office Visit OB/Gynecology [address] [place], [place] [id number] Zina Jensen APRN.[facility] [address] [place] [address] Glucose Test /OB OB/Gynecology Comment on above: Glucose Test /OB Start: 12-04-2024 End: 03-05-2025 ANEMIA REFLEX PANEL ANEMIA REFLEX PANEL Lab Routine Encounter for supervision of normal first in second trimester History of posttraumatic stress disorder (PTSD) Rh negative state in antepartum period, first trimester ERICK (generalized anxiety disorder) Family history of congenital heart defect 24 weeks gestation of Expected: 12/04/2024, Expires: 03/05/2025 [facility] Comment on above: Expected: 12/04/2024 , Expires: 03/05/2025 Start: 12-04-2024 End: 12-04-2025 GESTATIONAL GLUCOSE SCREEN, 1-HOUR, 50 GRAM, NON-FASTING GESTATIONAL GLUCOSE SCREEN, 1-HOUR, 50 GRAM, NON-FASTING Lab Routine Encounter for supervision of normal first in second trimester History of posttraumatic stress disorder (PTSD) Rh negative state in antepartum period, first trimester ERICK (generalized anxiety disorder) Family history of congenital heart defect 24 weeks gestation of Screening for diabetes mellitus Expected: 12/04/2024, Expires: 12/04/2025 [facility] Work Phone: Comment on above: Expected: 12/04/2024 , Expires: 12/04/2025 Start: 12-04-2024 End: 12-04-2025 SYPHILIS TREPONEMAL W/REFLEX SYPHILIS TREPONEMAL W/REFLEX Lab Routine Encounter for supervision of normal first in second trimester History of posttraumatic stress disorder (PTSD) Rh negative state in antepartum period, first trimester ERICK (generalized anxiety disorder) Family history of congenital heart defect 24 weeks gestation of Expected: 12/04/2024, Expires: 12/04/2025 [facility] Comment on above: Expected: 12/04/2024 , Expires: 12/04/2025 Start: 12-04-2024 End: 03-05-2025 TYPE + SCREEN TYPE + SCREEN Blood Bank Routine Encounter for supervision of normal first in second trimester History of posttraumatic stress disorder (PTSD) Rh negative state in antepartum period, first trimester ERICK (generalized anxiety disorder) Family history of congenital heart defect 24 weeks gestation of Expected: 12/04/2024, Expires: 03/05/2025 [facility] Comment on above: Expected: 12/04/2024 , Expires: 03/05/2025 Start: 12-04-2024 End: 12-04-2024 Patient encounter procedure 12/04/2024 1:15 PM EDT Routine Office Visit OB/Gynecology [address] [place] [address] Vicky Engel APRN.[facility] [address] [place] [address] OB Routine OB/Gynecology Comment on above: OB Routine Start: 11-19-2024 End: 11-19-2024 ambulatory 11/19/2024 9:30 AM EDT Procedure Pediatric Cardiology [address] [place] [address] Jossy Lara MD [address] [place] [address] 9 weeks gestation of [Z3A.09] Pediatric Cardiology Comment on above: 9 weeks gestation of [Z3A.09] Start: 11-19-2024 End: 11-19-2024 Patient encounter procedure 11/19/2024 9:30 AM EDT Office Visit Pediatric Cardiology [address] [place] [address] 9 weeks gestation of [Z3A.09] Pediatric Cardiology Comment on above: 9 weeks gestation of [Z3A.09] Start: 11-08-2024 End: 11-08-2024 Patient encounter procedure 11/08/2024 9:45 AM EST Routine Office Visit OB/Gynecology [address] [place] [address] Zina Jensen APRN.CNM [address] [place] [address] OB Routine OB/Gynecology Comment on above: OB Routine Start: 11-08-2024 End: 11-08-2024 Patient encounter procedure 11/08/2024 8:30 AM EST Routine Office Visit OB/Gynecology [address] [place] [address] [facility] [address] [place] [address] Anatomy Scan OB/Gynecology Comment on above: Anatomy Scan Start: 11-05-2024 End: 11-05-2024 Patient encounter procedure 11/05/2024 9:45 AM EST Routine Office Visit OB/Gynecology [address] [place] [address] Zina Jensen APRN.CNM [address] [place] [address] OB Routine OB/Gynecology Comment on above: OB Routine Start: 11-05-2024 End: 11-05-2024 Patient encounter procedure 11/05/2024 8:30 AM EST Routine Office Visit Maternal Medicine [address] [place] [address] Anatomy Scan Maternal Medicine Comment on above: Anatomy Scan Start: 10-15-2024 End: 10-15-2024 Patient encounter procedure 10/15/2024 10:00 AM EST Routine Office Visit OB/Gynecology [address] [place] [address] Zina Jensen APRN.CNLiyah [address] [place] [address] OB Routine OB/Gynecology Comment on above: OB Routine Start: 09-17-2024 End: 09-17-2024 Patient encounter procedure 09/17/2024 8:20 AM EST Office [place] [address] [facility] Comment on above: [id number] Start: 09-13-2024 End: 09-13-2024 Patient encounter procedure Maternal Medicine Comment on above: Nuchal OB Routine Start: 09-03-2024 End: 09-03-2024 Patient encounter procedure 09/03/2024 2:30 PM EST Routine Office Visit OB/Gynecology [address] [place] [address] Zina Jensen APRN.CNM [address] [place] [address] OB-Urinary symptoms, brown spotting OB/Gynecology Comment on above: OB-Urinary symptoms, brown spotting Start: 08-20-2024 End: 08-20-2024 Patient encounter procedure 08/20/2024 9:30 AM EST Routine Office Visit OB/Gynecology [address] [place] [address] Zina Jensen APRN.CNM [address] [place] [address] OB Routine OK Per AMBERLY OB/Gynecology Comment on above: OB Routine OK Per AMBERLY Start: 08-12-2024 End: 11-11-2024 ANEMIA REFLEX PANEL [facility] Work Phone: Comment on above: Expected: 08/12/2024 , Expires: 11/11/2024 Start: 08-12-2024 End: 11-11-2024 HEMOGLOBIN EVALUATION CASCADE [facility] Comment on above: Expected: 08/12/2024 , Expires: 11/11/2024 Start: 08-12-2024 End: 08-12-2025 NUCHAL TRANSLUCENCY WHI NUCHAL TRANSLUCENCY WHI Anc Imaging Routine with uncertain dates, antepartum Expected: 08/12/2024, Expires: 08/12/2025 [facility] Comment on above: Expected: 08/12/2024 , Expires: 08/12/2025 Start: 08-12-2024 End: 08-12-2025 OBSTETRIC ULTRASOUND WHI OBSTETRIC ULTRASOUND WHI Anc Imaging Routine with uncertain dates, antepartum Expected: 08/12/2024, Expires: 08/12/2025 [facility] Comment on above: Expected: 08/12/2024 , Expires: 08/12/2025 Start: 08-12-2024 End: 11-11-2024 Progesterone [Mass/volume] in Serum or Plasma [facility] Comment on above: Expected: 08/12/2024 , Expires: 11/11/2024 Start: 08-12-2024 End: 11-11-2024 TYPE + SCREEN [facility] Comment on above: Expected: 08/12/2024 , Expires: 11/11/2024 Start: 08-12-2024 End: 08-12-2024 Patient encounter procedure 08/12/2024 9:30 AM EST Initial Office Visit OB/Gynecology [address] [place] [address] Zian Jensen APRN.CNM [address] [place] [address] New OB LMP 06/16 - coming at 9am (okay per AMBERLY - see phone note) OB/Gynecology Comment on above: New OB LMP 06/16 - c oming at 9am (okay per AMBERLY - see phone note) Start: 05-05-2024 Covid-19 Vaccine ( season) Covid-19 Vaccine () [facility] Start: 05-05-2024 Influenza vaccination Influenza Vacc ine (#1) [facility] Start: 04-23-2024 End: 04-16-2025 OFFICE HYSTEROSCOPY OFFICE HYSTEROSCOPY Procedures Routine Encounter for fertility testing Expected: 04/23/2024 (Approximate), Expires: 04/16/2025 [facility] Work Phone: Comment on above: Expected: 04/23/2024 (Approximate), Expires: 04/16/2025 Start: 12-04-2023 End: 12-04-2023 Patient encounter procedure Division of Surgical Oncology Start: 09-04-2023 Depression Assessment Depression Ass essment [facility] Start: 07-06-2023 End: 10-05-2023 Choriogonadotropin.beta subunit [Units/volume] in Serum or Plasma HCG QUANTITATIVE Lab STAT examination or test, unconfirmed Expected: 07/06/2023, Expires: 10/05/2023 [facility] Work Phone: Comment on above: Expected: 07/06/2023 , Expires: 10/05/2023 Start: 05-17-2023 End: 07-17-2023 Estradiol (E2) [Mass/volume] in Serum or Plasma ESTRADIOL-17B BLD Lab STAT Female infertility Expected: 05/17/2023, Expires: 07/17/2023 [facility] Work Phone: Comment on above: Expected: 05/17/2023 , Expires: 07/17/2023 Start: 05-17-2023 End: 07-17-2023 Progesterone [Mass/volume] in Serum or Plasma PROGESTERONE BLD Lab STAT Female infertility Expected: 05/17/2023, Expires: 07/17/2023 [facility] Work Phone: Comment on above: Expected: 05/17/2023 , Expires: 07/17/2023 Start: 05-16-2023 End: 05-16-2024 FOLLICULAR US WHI FOLLICULAR US I Anc Imaging Routine Female infertility Expected: 05/16/2023, Expires: 05/16/2024 [facility] Work Phone: Comment on above: Expected: 05/16/2023 , Expires: 05/16/2024 Start: 05-05-2023 Covid-19 Vaccine () Covid-19 Vaccine () [facility] Start: 05-05-2023 Influenza vaccination [facility] Start: 04-13-2023 End: 06-13-2023 Choriogonadotropin.beta subunit [Units/volume] in Serum or Plasma HCG QUANTITATIVE Lab STAT Female infertility Expected: 04/13/2023, Expires: 06/13/2023 [facility] Work Phone: Comment on above: Expected: 04/13/2023 , Expires: 06/13/2023 Start: 04-13-2023 End: 06-13-2023 Lutropin [Units/volume] in Serum or Plasma LUTEINIZING HORMONE Lab STAT Female infertility Expected: 04/13/2023, Expires: 06/13/2023 [facility] Work Phone: Comment on above: Expected: 04/13/2023 , Expires: 06/13/2023 Start: 04-13-2023 End: 06-13-2023 Progesterone [Mass/volume] in Serum or Plasma PROGESTERONE BLD Lab STAT Female infertility Expected: 04/13/2023, Expires: 06/13/2023 [facility] Work Phone: Comment on above: Expected: 04/13/2023 , Expires: 06/13/2023 Start: 03-23-2023 End: 05-23-2023 Estradiol (E2) [Mass/volume] in Serum or Plasma ESTRADIOL-17B BLD Lab STAT Female infertility Expected: 03/23/2023, Expires: 05/23/2023 [facility] Work Phone: Comment on above: Expected: 03/23/2023 , Expires: 05/23/2023 Start: 03-23-2023 End: 05-23-2023 Hematocrit [Volume Fraction] of Blood HEMATOCRIT (HCT) Lab STAT Female infertility Expected: 03/23/2023, Expires: 05/23/2023 [facility] Work Phone: Comment on above: Expected: 03/23/2023 , Expires: 05/23/2023 Start: 12-08-2022 End: 02-07-2023 Hepatitis B virus core Ab [Presence] in Serum HEP B CORE AB TOTAL Lab Routine Fertility testing Expected: 12/08/2022, Expires: 02/07/2023 [facility] Work Phone: Comment on above: Expected: 12/08/2022 , Expires: 02/07/2023 Start: 09-04-2022 DEPRESSION ASSESSMENT DEPRESSION ASS [facility] Start: 2022 HPV TESTING HPV TESTING [facility] Start: 2022 Screening for malign ant neoplasm of cervix HPV Testing [facility] Start: 2013 PAP TESTING PAP TESTING [facility] Start: 2013 Screening for malign ant neoplasm of cervix [facility] Start: 2011 Third diphtheria, tetanus and acellular pertussis (DTaP) vaccination TDAP (ADULT) [facility] Start: 2011 Urine microalbumin profile [facility] Start: 2010 Anxiety Screening Anxiety Screening [facility] Start: 2010 Depression Screening Depression Scre [facility] Start: 2010 HEPATITIS C SCREENING HEPATITIS C [facility] Start: 2010 Hepatitis C screening Hepatitis C [facility] Start: 2010 HIV SCREENING HIV SCREENING [facility] Start: 2010 HIV screening HIV Screening [facility] Start: 2007 HIV screening HIV SCREENING DISCUSSI ON [facility] Start: 1992 COVID-19 VACCINE (#1) COVID-19 VACCI NE (#1) [facility] Start: 1992 HEPATITIS B (1 of 3 - 3-dose series) HEPATITIS B (1 of 3 - 3-dose series) [facility] Start: 1992 Hepatitis B Vaccine (1 of 3 - 3-dose series) Hepatitis B Vaccine (1 of 3 - 3-dose series) [facility] Start: 1992 Hepatitis C screening HEPATITI S C VIRUS SCREENING [facility] Start: 1992 Tetanus vaccination TETANUS [facility] Bacteria identified in Urine by Culture URINE CULTURE Microbiology Routine with uncertain dates, antepartum 08/12/2024 10:32 AM [facility] BACTERIAL VAGINOSIS NAAT BACTERIAL VAGINOSIS NAAT Lab Routine with uncertain dates, antepartum 08/12/2024 10:32 AM EST [facility] STEVE/TRICHOMONAS NAAT STEVE/TRICHOMONAS NAAT Lab Routine with uncertain dates, antepartum 08/12/2024 10:32 AM [facility] Chlamydia trachomatis+Neisseria gonorrhoeae DNA [Presence] in Unspecified specimen by KIRILL with probe detection GONORRHEA/CHLAMYDIA NAAT Lab Routine with uncertain dates, antepartum 08/12/2024 10:32 AM EST [facility] End: 08-20-2025 ECHO ECHO Cardiology Routine 9 weeks gestation of Family history of congenital heart defect 1 Occurrences starting 08/20/2024 until 08/20/2025 [facility] Work Phone: Comment on above: 1 Occurrences starti ng 08/20/2024 until 08/20/2025 End: 01-16-2026 ECHO ECHO Cardiology Routine Maternal care for (suspected) abnormality and damage, unspecified, fetus 1 (HCC) 1 Occurrences starting 01/16/2025 until 01/16/2026 [facility] Work Phone: Comment on above: 1 Occurrences starti ng 01/16/2025 until 01/16/2026 End: 03-27-2024 Estradiol (E2) [Mass/volume] in Serum or Plasma ESTRADIOL-17B BLD Lab STAT Female infertility 6 Occurrences starting 03/30/2023 until 03/27/2024, 5 completed [facility] Work Phone: Comment on above: 6 Occurrences starti ng 03/30/2023 until 03/27/2024, 5 completed End: 05-03-2023 FOLLICULAR US WHI FOLLICULAR US WHI Anc Imaging Routine Female infertility Daily for 6 Occurrences starting 03/23/2023 until 05/03/2023 [facility] Work Phone: Comment on above: Daily for 6 Occurren chloé starting 03/23/2023 until 05/03/2023 OFFICE HYSTEROSCOPY OFFICE HYSTE ROSCOPY Procedures Routine Fertility testing Ordered: 04/02/2024 [facility] Work Phone: Comment on above: Ordered: 04/02/2024 PAP TEST PAP TEST Lab Rou jamie with uncertain dates, antepartum Screening for cervical cancer Screening for human papillomavirus (HPV) 08/12/2024 10:32 AM EST [facility] End: 04-06-2024 Progesterone [Mass/volume] in Serum or Plasma PROGESTERONE BLD Lab STAT Female infertility 3 Occurrences starting 04/07/2023 until 04/06/2024 [facility] Work Phone: Comment on above: 3 Occurrences starti ng 04/07/2023 until 04/06/2024 ROUTINE, GR OUP B STREPTOCOCCUS BY PCR ROUTINE, GROUP B STREPTOCOCCUS BY PCR Microbiology Routine 28 weeks gestation of (HCC) 36 weeks gestation of ([facility]) Cavernoma Ordered: 02/24/2025 [facility] Work Phone: Comment on above: Ordered: 02/24/2025 URINE OB DIP B/O URINE OB DIP B/ O Lab Routine 34 weeks gestation of ([facility]) Encounter for supervision of normal first in third trimester ([facility]) ERICK (generalized anxiety disorder) History of bowel resection Cavernoma or capillary telangiectasia Ordered: 02/10/2025 [facility] Work Phone: Comment on above: Ordered: 02/10/2025 URINE OB DIP B/O URINE OB DIP B/ O Lab Routine Cavernoma Supervision of high risk in third trimester ([facility]) Positive GBS test Family history of congenital heart defect 38 weeks gestation of ([facility]) Ordered: 03/10/2025 [facility] Work Phone: Comment on above: Ordered: 03/10/2025 [facility] Immunizations Immunization Date Immunization Notes Care Provider Genia washington 01-01-2025 RHO(D) immune globul in- IV or IM Zina Mikey MORELAND.CNM Work Phone: [facility] 06-29-2022 influenza virus vacc ine, unspecified formulation Lalit Pritchard MD Work Phone: [facility] Payers Date Payer Category Payer Self-pay [id number] 2022 Unknown [id number] 20 2022 Unknown [id number] 2022 Private Health Insurance [id number] 2022 Private Health Insurance [id number] 1992 Unknown [id number] 2. [id number] 1992 Unknown [id number] 1992 Unknown [id number] 2. [id number] 1992 Unknown [id number] 2. [id number] 1992 Unknown [id number] 2. [id number] Unknown [id number] 2.16. [id number] Unknown [id number] 2.16. [id number] Unknown [id number] [id number] Social History Date Type Detail Facility Tobacco smoking stat [facility] Unknown if ever smoked [facility] Work Phone: Start: 1990 Sex Assigned At Female C [facility] Tobacco smoking stat [facility] Tobacco smoking consumption unknown [facility] Start: 12-05-2022 End: 12-07-2022 Tobacco smoking status NHIS Never smoked tobacco [facility] History of tobacco use Passive smoker [facility] Start: 12-05-2022 End: 12-07-2022 Tobacco use and exposure Smokeless tobacco non-user [facility] Start: 12-05-2022 End: 01-17-2025 Alcohol intake Ex-drinker (finding) [facility] Start: 12-05-2022 History SDOH Financial 5 [facility] Start: 12-05-2022 History SDOH Food Worry 1 [facility] Start: 12-05-2022 History SDOH Transpo rt Med 2 [facility] Start: 1992 Sex Assigned At Not on file O MCDONNELL [facility] Start: 12-07-2022 Alcohol intake Current drinke r of alcohol (finding) [facility] Start: 12-07-2022 Alcohol Comment very occasional [facility] Start: 12-07-2022 End: 08-12-2024 History of Social function [facility] Start: 12-07-2022 End: 08-12-2024 Tobacco use panel [facility] National Score (1-10 0), lower number is lower risk 52 [facility] (I/We) worried wheth er (my/our) food would run out before (I/we) got money to buy more. Never true [facility] Start: 08-07-2024 Education 17 [facility] Start: 06-30-2024 [facility] Start: 08-07-2024 Gender identity Identifies as female gender (finding) [facility] Start: 08-07-2024 Sexual orientation Heterosexual (melly palacios) [facility] Medical Equipment Procedure Code Equipment Code Equipment Original Text Equipment Identifier Dates [id number], [id number] Start: 04-04-2023 End: 08-12-2024 Comment on above: 80 Units one time on ly for 1 dose. To be used to inject progesterone in oil. 1 Each once daily. Goals Date Patient Goal Desired Activity /State Personal health goal Clinical Notes 10-24-2022 to 03-20-2025 Quick Notes - Bebeto Valencia MD - 03/20/2025 10:29 AM EDTPrenatal Quick Notes - Bebeto Valencia MD - 03/20/2025 10:29 AM EDTPatient InstructionsPatient InstructionsPatient Instructions Note Date & Type Note Facility 03-20-2025 Progress note Formatting of t his note might be different from the original. KJ - S: Dona denies LOF or vaginal bleeding. O: 39w4d, see flow sheet SENSITIVE EXAM: Sensitive exam not performed. A/P: Assessment & Plan 39 weeks gestation of (HCC) Orders: URINE OB DIP B/O Supervision of high risk in third trimester ([facility]) Orders: URINE OB DIP B/O Positive GBS test Orders: URINE OB DIP B/O Cavernoma or capillary telangiectasia Cleared by neurology. Patient reports cleared by [facility] anesthesia and will confirm this is on patient's L&D chart. Reviewed labor & FM precautions Bebeto Valencia MD [facility] 03-20-2025 Miscellaneous Notes KJ - S: Dona denies LOF or vaginal bleeding. O: 39w4d, see flow sheet SENSITIVE EXAM: Sensitive exam not performed. A/P: Assessment & Plan 39 weeks gestation of (HCC) Orders: URINE OB DIP B/O Supervision of high risk in third trimester ([facility]) Orders: URINE OB DIP B/O Positive GBS test Orders: URINE OB DIP B/O Cavernoma or capillary telangiectasia Cleared by neurology. Patient reports cleared by [facility] anesthesia and will confirm this is on patient's L&D chart. Reviewed labor & FM precautions Bebeto Valencia MD documented in this encounter [facility] 03-20-2025 Instructions Lucinda Nation MA - 03/20/2025 10:10 AM EDT SEQUENTIAL SCREENINGS The [facility] offers sequential screenings for women who are interested in screenings for chromosomal abnormalities and certain defects during a . The sequential screen combines ultrasound and blood tests to determine the risk of chromosomal abnormalities, including Down's Syndrome (Trisomy 21) and Trisomy 18, as well as open neural tube defects including spina bifida. Ultrasound examination is performed between 11 weeks and 13 weeks gestational age. Blood tests are drawn after the ultrasound and again later in the between 15 and 21 weeks gestational age. Please let your physician know if you are interested in this testing. It will require an appointment with our refresh technician. This is not an ultrasound performed by a physician in our office during a routine visit. SIGNS AND SYMPTOMS OF LABOR 1. Contractions every 10 minutes or more often 2. Clear, pink, or brownish fluid (water) leaking from vagina 3. Feeling that baby is pushing down, pressure 4. Low, dull backache 5. Cramps that feel like a period 6. Cramps with or without diarrhea If you notice any of the above symptoms, contact our office at [phone] and ask to speak with a nurse. After hours, you can call doctors registry at [phone] OR call [facility] at [phone] and ask to have the doctor reproduction machine loader paged. If you consider this an emergency, dial 9-1- or go to your nearest emergency department. NEED HELP? Are you dealing with a violent or abusive relationship? Are you a victim of rape or sexual assult? Call [facility] ([facility] 24 hour Crisis Hotline: 685.244.6854 or 128-604-7860. MANUAL Your Guide to a Healthy manual is now on-line. Visit [email or web address] [place] to download your free copy documented in this encounter [facility] 03-14-2025 Telephone encounter Note Received fax from [facility] that anesthesia consult was completed on 03/06/25 and states Optimized for anesthesia. AMBERLY notified. Copy to L&D and sent to scan into [employer]. Lacey Mazariegos RN [facility] 03-14-2025 Miscellaneous Notes Received fax from PAT that anesthesia consult was completed on 03/06/25 and states Optimized for anesthesia. AMBERLY notified. Copy to L&D and sent to scan into [employer]. Lacey Mazariegos RN Sent copy of allergy testing to L&D. Left voicemail with [facility] PAT regarding if consult was completed then and to get consult faxed to office if so. Lacey Mazariegos RN Please send note to L&D. Please remove PCN from allergy list. Did we get Anesthesia consult yet? Thank you, Zina Jensen APRN.CNM documented in this encounter [facility] 03-14-2025 Telephone encounter Note Sent copy of allergy testing to L&D. Left voicemail with [facility] PAT regarding if consult was completed then and to get consult faxed to office if so. Lacey Mazariegos RN [facility] 03-14-2025 Telephone encounter Note Please send note to L&D. Please remove PCN from allergy list. Did we get Anesthesia consult yet? Thank you, Zina Jensen APRN.CNM [facility] 03-12-2025 Note HNO ID: [id number] Author: LUCINDA VELAZQUEZ MA Service: ? Author Type: Beautician Apprentice Type: Progress Notes Filed: 03/12/2025 08:40 Note Text: POPULATION HEALTH NAVIGATION OUTREACH Action/FYI 2nd attempt: Called and left message to call back, Reason for Outreach Medicaid OB/Peds Care Gaps due: N/A Patient Contacted: Unable or unnecessary to reach patient: Unable to reach patient Left message Navigation Signature: Lucinda Hussein MA March 12, 2025 8:39 AM [facility] 03-10-2025 Progress note Formatting of t his note might be different from the original. AMBERLY-S: Dona Gutierrez is a 34 year old female who presents at 38w1d with SHANTI: 03/23/2025, by Last Menstrual Period for a routine visit. Denies headache, visual changes, chest pain, shortness of breath, vaginal bleeding, leakage of fluid, or dysuria. Feeling well, no complaints. O: See flow sheet Gen: No apparent distress Abd: Gravid, nontender ASSESSMENT/PLAN: 1. Encounter for supervision of normal first in second trimester -Continue PNV 2. 38 weeks gestation of 3. History of posttraumatic stress disorder (PTSD) -Coping at this time, no medication 4. ERICK (generalized anxiety disorder) -Coping at this time, no medication 5. Family history of congenital heart defect - echo completed and has follow up on 01/21/25 to rule out BAV. -A echocardiogram is recommended to rule out BAV; this can be done electively if no immediate concerns. 6. Rh negative state in antepartum period, first trimester -Rhogam administered 01/01/25 7. History of asthma -No medication, stable. No Hemabate at delivery 7. Excessive weight gain in , third trimester -No further weight gain. Growth US today -Reviewed exercise and diet but feels she is making good choices 8. 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 Low risk and ok for vaginal delivery - Maintaining systolic blood pressure below 160 mmHg to prevent spikes that could increase hemorrhage risk. - Patient advised to monitor for new severe headaches, and to seek immediate medical attention if they occur. - Follow-up MRI at approximately 6 months to reassess the lesion for stability. See progress note from on 03/06/25, sent to L&D Anesthesia consult on 03/03/25, note sent to L&D and requested anesthesia consult note for our office. 9.GBS positive -Allergy testing on 03/14 and will await results Labor instructions reviewed RTO in one week Zina Jensen APRN.CNM [facility] 03-10-2025 Miscellaneous Notes AMBERLY-S: Dona Gutierrez is a 34 year old female who presents at 38w1d with SHANTI: 03/23/2025, by Last Menstrual Period for a routine visit. Denies headache, visual changes, chest pain, shortness of breath, vaginal bleeding, leakage of fluid, or dysuria. Feeling well, no complaints. O: See flow sheet Gen: No apparent distress Abd: Gravid, nontender ASSESSMENT/PLAN: 1. Encounter for supervision of normal first in second trimester -Continue PNV 2. 38 weeks gestation of 3. History of posttraumatic stress disorder (PTSD) -Coping at this time, no medication 4. ERICK (generalized anxiety disorder) -Coping at this time, no medication 5. Family history of congenital heart defect - echo completed and has follow up on 01/21/25 to rule out BAV. -A echocardiogram is recommended to rule out BAV; this can be done electively if no immediate concerns. 6. Rh negative state in antepartum period, first trimester -Rhogam administered 01/01/25 7. History of asthma -No medication, stable. No Hemabate at delivery 7. Excessive weight gain in , third trimester -No further weight gain. Growth US today -Reviewed exercise and diet but feels she is making good choices 8. 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 Low risk and ok for vaginal delivery - Maintaining systolic blood pressure below 160 mmHg to prevent spikes that could increase hemorrhage risk. - Patient advised to monitor for new severe headaches, and to seek immediate medical attention if they occur. - Follow-up MRI at approximately 6 months to reassess the lesion for stability. See progress note from on 03/06/25, sent to L&D Anesthesia consult on 03/03/25, note sent to L&D and requested anesthesia consult note for our office. 9.GBS positive -Allergy testing on 03/14 and will await results Labor instructions reviewed RTO in one week Zina Jensen APRN.CNM documented in this encounter [facility] 03-10-2025 Instructions Zina Jensen APRN.CNM - 03/10/2025 2:23 PM EDT SIGNS AND SYMPTOMS OF LABOR 1. Contractions every 10 minutes or more often 2. Clear, pink, or brownish fluid (water) leaking from vagina 3. Feeling that baby is pushing down, pressure 4. Low, dull backache 5. Cramps that feel like a period 6. Cramps with or without diarrhea If you notice any of the above symptoms, contact our office at [phone] and ask to speak with a nurse. After hours, you can call doctors registry at [phone] OR call [facility] at [phone] and ask to have the doctor reproduction machine loader paged. If you consider this an emergency, dial -1-2 or go to your nearest emergency department. NEED HELP? Are you dealing with a violent or abusive relationship? Are you a victim of rape or sexual assult? Call [facility] ([facility] 24 hour Crisis Hotline: 922.178.2191 or 214-856-6178. MANUAL Your Guide to a Healthy manual is now on-line. Visit [email or web address] to download your free copy documented in this encounter [facility] 03-10-2025 Note HNO ID: [id number] Author: LUCINDA VELAZQUEZ MA Service: ? Author Type: Beautician Apprentice Type: Progress Notes Filed: 03/10/2025 14:12 Note Text: POPULATION HEALTH NAVIGATION OUTREACH Action/ attempt: Called and left message to call back to discuss space buyer. MC message sent. Reason for Outreach Medicaid OB/Peds Care Gaps due: N/A Patient Contacted: Unable or unnecessary to reach patient: Unable to reach patient Left message Neituihart message sent Navigation Signature: Lucinda Hussein MA March 10, 2025 10:14 AM [facility] 03-10-2025 History of Present illness Narrative POPULATION HEALTH NAVIGATION OUTREACH Action/ 1st attempt: Called and left message to call back to discuss space buyer. MC message sent. Reason for Outreach Medicaid OB/Peds Care Gaps due: N/A Patient Contacted: Unable or unnecessary to reach patient: Unable to reach patient Left message Fridge message sent Navigation Signature: Lucinda Hussein MA March 10, 2025 10:14 AM documented in this encounter [facility] 03-10-2025 Note Patient Outreach (NE TNAV) DONA GUTIERREZ ([id number]) 1990 F Date Time Provider Department 03/10/25 LUCINDA VELAZQUEZ During your visit today, we recorded the following information about you: Lucinda Velazquez MA 03/10/2025 2:12 PM Signed POPULATION HEALTH NAVIGATION OUTREACH Action/ attempt: Called and left message to call back to discuss space buyer. MC message sent. Reason for Outreach Medicaid OB/Peds Care Gaps due: N/A Patient Contacted: Unable or unnecessary to reach patient: Unable to reach patient Left message Mytopiat message sent Navigation Signature: Lucinda Hussein MA March 10, 2025 10:14 AM Lucinda Velazquez MA 03/12/2025 8:40 AM Signed POPULATION HEALTH NAVIGATION OUTREACH Action/FYI 2nd attempt: Called and left message to call back, Reason for Outreach Medicaid OB/Peds Care Gaps due: N/A Patient Contacted: Unable or unnecessary to reach patient: Unable to reach patient Left message Navigation Signature: Lucinda Hussein MA March 12, 2025 8:39 AM Allergies As of Date: 03/10/2025 Noted Allergy Reaction AMOXICILLIN 12/07/2022 2 - Rash CLINDAMYCIN 03/06/2019 6 - Diarrhea LATEX 12/07/2022 7 - Swelling Date Reviewed: 03/10/2025 Reviewed by: Valente Cotton MA - Fully Assessed Reason for Visit: Population Health Navigation Outreach [3910] Cmt: Ob/peds Prescriptions as of 03/12/2025 - docosahexaenoic acid ( DHA ORAL) Take by mouth. With omega 3 - ferrous sulfate (IRON ORAL) Take by mouth. Blood builder- whole food iron - cholecalciferol (VITAMIN D3) 1,000 unit tab tablet Take 1 tablet by mouth once daily. - CHOLINE CHLORIDE, BULK, MISC 550 mg. - nutritional supplement/fiber (JUICE PLUS FIBRE ORAL) Take by mouth once daily. - Lactobac no.41/Bifidobact no.7 (PROBIOTIC-10 ORAL) Take by mouth once daily. Problem List As Of Date 03/10/2025 Noted Resolved History of asthma [Z87.09] 08/12/2024 History of posttraumatic stress disorder (PTSD)*08/12/2024 ERICK (generalized anxiety disorder) [F41.1] 08/12/2024 Family history of congenital heart defect [Z82.*08/12/2024 Encounter for supervision of normal i*08/12/2024 History of infertility [Z87.42] 08/12/2024 Rh negative state in antepartum period, first t*08/13/2024 Cavernoma or capillary telangiectasia [D18.00] Generalized anxiety disorder [F41.1] 01/01/2025 PTSD (post-traumatic stress disorder) [F43.10] History of intestinal surgery [Z98.890] 02/14/2025 Positive GBS test [B95.1] 02/28/2025 Penicillin allergy [Z88.0] 03/10/2025 Encounter Status:Closed by LUCINDA VELAZQUEZ on 03/10/25 [facility] 03-06-2025 Instructions Livia Denny MD - 03/06/2025 3:07 PM EDT We discussed your and delivery planning in the context of your known cavernous malformation or capillary telangiectasia: - Your condition is stable, and there is no immediate concern for complications during labor and delivery. However, it is important to monitor your blood pressure closely during labor to avoid spikes above 160 mmHg. - You may proceed with vaginal delivery or section based on your preference and the recommendations of your operative supervisor. If your blood pressure trends upward or labor becomes prolonged and strenuous, your operative supervisor may recommend one approach or another to ensure your safety. - Pain management during labor is encouraged if needed to help control blood pressure and reduce strain on your body. - You may deliver at [facility], as there is no need to transfer to a higher-level facility from a neurological standpoint. - If you experience a severe headache (e.g., a "thunderclap" headache that feels like being hit by a baseball bat), notify your care team immediately or call 911 if outside of the hospital. This could indicate a serious issue requiring urgent evaluation. We discussed your cavernous malformation and capillary telangiectasia: - Based on your imaging and history, this lesion is likely a cavernous malformation, on Dr Denny's review. - There is no need for immediate imaging or intervention. We will plan for a follow-up MRI of the brain without and with contrast, approximately six months after delivery to reassess the lesion. We will discuss precautions for at that time (e.g., pumping and discarding breast milk for 72 hours after the dye exposure). - Long-term, we may monitor this lesion with imaging every one to every few years to ensure there are no changes. - If you experience any concerning symptoms, such as new or severe headaches, difficulty speaking, swallowing, or moving, or any other unusual neurological symptoms, please contact my office immediately or seek emergency care. We discussed your neurological exam: - Your neurological exam today was completely normal, which is reassuring and provides a good baseline for future reference. Follow-Up Plan: - Focus on your upcoming labor and delivery and caring for your baby. We will plan to follow up with an MRI of the brain in approximately six months after delivery. - I will communicate with your operative supervisor to ensure they are aware of the plan to monitor your blood pressure closely during labor and delivery. - If you have any new or concerning symptoms, please contact my office. Thank you for coming in today. I will also consult with my colleagues, including radiologists and neurosurgeons, to review your imaging and ensure we are providing the best care. You will be updated if there are any additional recommendations. documented in this encounter [facility] 03-06-2025 History of Present illness Narrative [facility] Initial Visit Dona Gutierrez CC#: [id number] Date of Service: 03/06/2025 Primary Care Provider: Tushar Centeno MD, MD The patient was referred by [place], [place] for opinion regarding a left pontine capillary telangiectasia or cavernous malformation. I will provide a written report of my findings to the referring through letter, e communication, or epic. 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 She has a known incidental and asymptomatic vascular lesion in the left corie, suspected to be either a cavernous malformation vs a capillary telangiectasia, discovered incidentally during imaging for post-concussive syndrome following a head injury on September 05, 2020. She was previously evaluated by neurosurgery in May 2021, where it was determined that her lesions carried a low hemorrhage risk despite their location in the left corie. Her neurosurgeon at the time, Dr. Siddiqui, favored a diagnosis of capillary telangiectasia over cavernous malformation and recommended discontinuing annual follow-up imaging. Her past medical history is significant for a traumatic brain injury and a prior nerve injury, with noted limited motion in her left shoulder and arm. Her family history is negative for any vascular malformations. No headache, vertigo, lightheadedness, nausea or vomiting. No history of transient or persistent visual, language, speech, swallowing, motor, sensory, coordination, or gait deficits. Past Medical History: ACTIVE PROBLEM LIST History of Asthma History of Posttraumatic Stress Disorder (Ptsd) Erick (Generalized Anxiety Disorder) Family History of Congenital Heart Defect Encounter for Supervision of Normal in First Trimester ([facility]) History of Infertility Rh Negative State in Antepartum Period, First Trimester ([facility]) Cavernoma or capillary telangiectasia Ptsd (Post-Traumatic Stress Disorder) History of Intestinal Surgery Positive Gbs Test PAST SURGICAL HISTORY Procedure Laterality Date APPENDECTOMY 1992 EXTRACTION ERUPTED TOOTH/EXR 2014 IVF RETRIEVAL ANY METHOD 04/14/2023 LARGE INTESTINE SURGERY HX 4-16 months old Allergies: Amoxicillin, Clindamycin, and Latex Medications: Current Outpatient Medications Medication Sig docosahexaenoic acid ( DHA ORAL) Take by mouth. With omega 3 ferrous sulfate (IRON ORAL) Take by mouth. Blood builder- whole food iron cholecalciferol (VITAMIN D3) 1,000 unit tab tablet Take 1 tablet by mouth once daily. CHOLINE CHLORIDE, BULK, MISC 550 mg. nutritional supplement/fiber (JUICE PLUS FIBRE ORAL) Take by mouth once daily. Lactobac no.41/Bifidobact no.7 (PROBIOTIC-10 ORAL) Take by mouth once daily. CRANBERRY OYLLPYJ-A-DIHLHON ORAL Take by mouth. (Patient not taking: Reported on 03/05/2025) PNV no.103/folic/om3s/fish oil ( WITH DHA-FOLIC ACID ORAL) Take by mouth. (Patient not taking: Reported on 02/10/2025) No current facility-administered medications for this visit. Social History Tobacco Use Smoking status: Never Smokeless tobacco: Never Vaping Use Vaping status: Never Used Substance Use Topics Alcohol use: Not Currently Comment: very occasional Drug use: Never Review of Systems Head: (-) headache Gastrointestinal: (-) dysphagia Neurological: (-) dysarthria PHYSICAL EXAMINATION BP 115/72 (BP Site: Left Arm, BP Position: Sitting, BP Cuff Size: Regular Adult) Pulse 87 Wt 71.2 kg (156 lb 15.5 oz) LMP 06/16/2024 (Exact Date) SpO2 100% BMI 25.34 kg/m General: The patient was well-groomed, appeared to be of stated age, and was in no acute distress. Cardiovascular: Regular heart rate and rhythm. Radial pulses normal. Respiratory: Normal breaths and breathing effort. No apparent dyspnea on exam. Head and neck: Atraumatic and normocephalic. Normal and symmetric cervical range of motion. Integuments: No hematoma or ecchymoses. Neurological exam: - Awake, alert, aware of events. Oriented to date/ month/ year; self; place. Provided own history. - Language normal in fluency, conversational comprehension. No paraphasias. - Normal visual smith OU to confrontation. SKYLA. Extraocular movements full, conjugate, and with normal accomodation and no nystagmus or drift. - Facial movements normal. Normal speech; no dysarthria. Normal and symmetric palate rise. Normal head turn and sternocleidomastoid activation. Midline tongue protrusion. - Normal tone, bulk and power in bilateral upper and lower extremities. No pronator drift. No adventitious movements. - Normal primary sensory modalities (proprioception, touch). No spatial inattention or extinction. - Normal truncal and appendicular coordination. - Normal stance and gait RESULTS IMAGING I have independently reviewed and interpreted the following imaging studies and laboratory test results. MRI brain wo con (10/13/2020) Small focus of increased susceptibility in the left corie, associated with a possible small vein nearby. Cavernous malformation likely, MRI brain wo/w con (11/16/2020) Faint contrast enhancement in the left corie may be more consistent with a capillary telangiectasia though the nearby venous-appearing structure is seen again, and may suggest a cavernous malformation. Labs CBC with diff: WBC 8.80 01/01/2025 RBC 4.13 01/01/2025 Hemoglobin 12.0 01/01/2025 Hematocrit 36.6 01/01/2025 MCV 88.6 01/01/2025 MCH 29.1 01/01/2025 MCHC 32.8 01/01/2025 RDW-CV 12.4 01/01/2025 Platelet Count 160 01/01/2025 MPV 11.0 01/01/2025 Neutrophils % 76.7 01/01/2025 Lymphocytes % 15.8 01/01/2025 Monocytes % 4.1 01/01/2025 Eosinophils % 2.2 01/01/2025 Basophils % 0.5 01/01/2025 Abs Neut 6.76 01/01/2025 Abs Cameron 0.36 01/01/2025 Abs Eosin 0.19 01/01/2025 Abs Baso 0.04 01/01/2025 IMPRESSION # Cavernoma (D18.00) Capt Gutierrez is 37.5 weeks with a known punctate lesion in the left corie, identified on MRI in OctoberNovember 2020. Current neurological exam is normal. I have reviewed the MRIs and additionally sought the input of one of my neuroradiology partners. Based on the associated enhancement, the lesion would be more likely a capillary telangiectasia; in presence of the linear structure coursing nearby, possibly a small developmental venous anomaly, it may also be a small cavernous malformation. Both lesions are very low risk and unlikely to pose significant danger to her during labor and delivery. - We discussed labor and delivery planning with emphasis on maintaining systolic blood pressure below 160 mmHg to prevent spikes that could increase hemorrhage risk. - Patient advised to monitor for new severe headaches, and to seek immediate medical attention if they occur. - As it has been several years, we will obtain a follow-up MRI at approximately 6 months to reassess the lesion for stability. We will see each other back in clinic after the repeat MRI. Recording using [employer] software for draft documentation of the visit was discussed with the patient/authorized medical representative; all questions welcomed and answered. Patient/authorized medical representative agreed to proceed SIGNATURE Livia Denny MD Staff, Neuroendovascular Intervention documented in this encounter [facility] 03-06-2025 Note HNO ID: [id number] Author: LIVIA DENNY MD Service: ? Author Type: Physician Type: Progress Notes Filed: 03/09/2025 23:39 Note Text: [facility] Initial Visit Dona Gutierrez CCF#: [id number] Date of Service: 03/06/2025 Primary Care Provider: Tushar Centeno MD, MD The patient was referred by 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 I will provide a written report of my findings to the referring through letter, e communication, or epic. 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 She has a known incidental and asymptomatic vascular lesion in the left corie, suspected to be either a cavernous malformation vs a capillary telangiectasia, discovered incidentally during imaging for post-concussive syndrome following a head injury on September 05, 2020. She was previously evaluated by neurosurgery in May 2021, where it was determined that her lesions carried a low hemorrhage risk despite their location in the left corie. Her neurosurgeon at the time, Dr. Siddiqui, favored a diagnosis of capillary telangiectasia over cavernous malformation and recommended discontinuing annual follow-up imaging. Her past medical history is significant for a traumatic brain injury and a prior nerve injury, with noted limited motion in her left shoulder and arm. Her family history is negative for any vascular malformations. No headache, vertigo, lightheadedness, nausea or vomiting. No history of transient or persistent visual, language, speech, swallowing, motor, sensory, coordination, or gait deficits. Past Medical History: ACTIVE PROBLEM LIST History of Asthma History of Posttraumatic Stress Disorder (Ptsd) Erick (Generalized Anxiety Disorder) Family History of Congenital Heart Defect Encounter for Supervision of Normal in First Trimester ([facility]) History of Infertility Rh Negative State in Antepartum Period, First Trimester ([facility]) Cavernoma or capillary telangiectasia Ptsd (Post-Traumatic Stress Disorder) History of Intestinal Surgery Positive Gbs Test PAST SURGICAL HISTORY Procedure Laterality Date APPENDECTOMY 1992 EXTRACTION ERUPTED TOOTH/EXR 2014 IVF RETRIEVAL ANY METHOD 04/14/2023 LARGE INTESTINE SURGERY HX 4-16 months old Allergies: Amoxicillin, Clindamycin, and Latex Medications: Current Outpatient Medications Medication Sig docosahexaenoic acid ( DHA ORAL) Take by mouth. With omega 3 ferrous sulfate (IRON ORAL) Take by mouth. Blood builder- whole food iron cholecalciferol (VITAMIN D3) 1,000 unit tab tablet Take 1 tablet by mouth once daily. CHOLINE CHLORIDE, BULK, MISC 550 mg. nutritional supplement/fiber (JUICE PLUS FIBRE ORAL) Take by mouth once daily. Lactobac no.41/Bifidobact no.7 (PROBIOTIC-10 ORAL) Take by mouth once daily. CRANBERRY OBMQBUV-T-QHEVPAC ORAL Take by mouth. (Patient not taking: Reported on 03/05/2025) PNV no.103/folic/om3s/fish oil ( WITH DHA-FOLIC ACID ORAL) Take by mouth. (Patient not taking: Reported on 02/10/2025) No current facility-administered medications for this visit. Social History Tobacco Use Smoking status: Never Smokeless tobacco: Never Vaping Use Vaping status: Never Used Substance Use Topics Alcohol use: Not Currently Comment: very occasional Drug use: Never Review of Systems Head: (-) headache Gastrointestinal: (-) dysphagia Neurological: (-) dysarthria PHYSICAL EXAMINATION BP 115/72 (BP Site: Left Arm, BP Position: Sitting, BP Cuff Size: Regular Adult) Pulse 87 Wt 71.2 kg (156 lb 15.5 oz) LMP 06/16/2024 (Exact Date) SpO2 100% BMI 25.34 kg/m? General: The patient was well-groomed, appeared to be of stated age, and was in no acute distress. Cardiovascular: Regular heart rate and rhythm. Radial pulses normal. Respiratory: Normal breaths and breathing effort. No apparent dyspnea on exam. Head and neck: Atraumatic and normocephalic. Normal and symmetric cervical range of motion. Integuments: No hematoma or ecchymoses. Neurological exam: - Awake, alert, aware of events. Oriented to date/ month/ year; self; place. Provided own history. - Language normal in fluency, conversational comprehension. No paraphasias. - Normal visual smith OU to confrontation. SKYLA. Extraocular movements full, conjugate, and with normal accomodation and no nystagmus or drift. - Facial movements normal. Normal speech; no dysarthria. Normal and symmetric palate rise. Normal head turn and sternocleidomastoid activation. Midline tongue protrusion. - Normal tone, bulk and power in bilateral upper and lower extremities. No pronator drift. No adventitious movements. - Normal primary sensory modalities ( (more content not included)... [facility] 03-05-2025 Note HNO ID: [id number] Author: VALERIO LEON MD Service: ? Author Type: Physician Type: Progress Notes Filed: 03/05/2025 16:57 Note Text: [facility] 03-05-2025 History of Present illness Narrative documented in this encounter [facility] 03-05-2025 Progress note Formatting of t his note might be different from the original. RR- VB No. LOF No. CTXS No. Movement: present. Other c/o: No. Medication list reviewed. SENSITIVE EXAM: Sensitive exam not performed. Physical Exam See Flow Sheet Abd: soft, nontender, gravid Ext: edema: no A/P 37w3d Estimated Date of Delivery: 03/23/25 Assessment & Plan Supervision of high risk in third trimester ([facility]) kickcounts Orders: URINE OB DIP B/O 37 weeks gestation of ([facility]) Orders: URINE OB DIP B/O Positive GBS test allergy testing, if not done ancef Orders: URINE OB DIP B/O Adverse effect of penicillamine, initial encounter agrees to allergy testing Orders: CONSULT TO ALLERGY/IMMUNOLOGY; Future neuro and allergy and anesthesia consults to be done sneha. Valerio Leon M.D. [facility] 03-05-2025 Miscellaneous Notes RR- VB No. LOF No. CTXS No. Movement: present. Other c/o: No. Medication list reviewed. SENSITIVE EXAM: Sensitive exam not performed. Physical Exam See Flow Sheet Abd: soft, nontender, gravid Ext: edema: no A/P 37w3d Estimated Date of Delivery: 03/23/25 Assessment & Plan Supervision of high risk in third trimester ([facility]) kickcounts Orders: URINE OB DIP B/O 37 weeks gestation of ([facility]) Orders: URINE OB DIP B/O Positive GBS test allergy testing, if not done ancef Orders: URINE OB DIP B/O Adverse effect of penicillamine, initial encounter agrees to allergy testing Orders: CONSULT TO ALLERGY/IMMUNOLOGY; Future neuro and allergy and anesthesia consults to be done sneha. Valerio Leon M.D. documented in this encounter [facility] 03-05-2025 Instructions Mariaelena Rubio MA - 03/05/2025 3:27 PM EDT SEQUENTIAL SCREENINGS The [facility] offers sequential screenings for women who are interested in screenings for chromosomal abnormalities and certain defects during a . The sequential screen combines ultrasound and blood tests to determine the risk of chromosomal abnormalities, including Down's Syndrome (Trisomy 21) and Trisomy 18, as well as open neural tube defects including spina bifida. Ultrasound examination is performed between 11 weeks and 13 weeks gestational age. Blood tests are drawn after the ultrasound and again later in the between 15 and 21 weeks gestational age. Please let your physician know if you are interested in this testing. It will require an appointment with our refresh technician. This is not an ultrasound performed by a physician in our office during a routine visit. SIGNS AND SYMPTOMS OF LABOR 1. Contractions every 10 minutes or more often 2. Clear, pink, or brownish fluid (water) leaking from vagina 3. Feeling that baby is pushing down, pressure 4. Low, dull backache 5. Cramps that feel like a period 6. Cramps with or without diarrhea If you notice any of the above symptoms, contact our office at [phone] and ask to speak with a nurse. After hours, you can call [facility] at [phone] OR call [facility] at [phone] and ask to have the doctor reproduction machine loader paged. If you consider this an emergency, dial [phone] or go to your nearest emergency department. NEED HELP? Are you dealing with a violent or abusive relationship? Are you a victim of rape or sexual assult? Call [facility] ([facility] 24 hour Crisis Hotline: 162.619.5259 or 702-632-5295. MANUAL Your Guide to a Healthy manual is now on-line. Visit [email or web address] to download your free copy documented in this encounter [facility] 03-04-2025 Telephone encounter Note Received outside medical records from [place] and scanned into patient chart. [facility] 03-04-2025 Miscellaneous Notes Received outside medical records from [place] and scanned into patient chart. Images from the original note were not included. Spoke with patient & she confirmed 2020 Brain Imaging from [facility] is most recent. Requested images from [facility]. Patient states she may have imaging on a CD. If she finds, she will also bring to appointment. OSH imaging/records received from [facility]: March 03, 2025 -Last 5 Years Records available in Care Everywhere -Last 5 Years Imaging [facility] Nisha Awan Has added pt to Dr Denny schedule, but need imaging. None located in [facility]. 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 Also she is 37 weeks . Am I allowed to schedule her with Dr. Denny this ? documented in this encounter [facility] 03-03-2025 Telephone encounter Note Images from the original note were not included. Spoke with patient & she confirmed 2020 Brain Imaging from [facility] is most recent. Requested images from [facility]. Patient states she may have imaging on a CD. If she finds, she will also bring to appointment. OSH imaging/records received from [facility]: March 03, 2025 -Last 5 Years Records available in Care Everywhere -Last 5 Years Imaging [facility] 03-03-2025 Telephone encounter Note [facility]. Nisha Awan Has added pt to Dr Denny schedule, but need imaging. None located in [facility]. 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 Also she is 37 weeks . Am I allowed to schedule her with Dr. Denny this ? [facility] 02-24-2025 Progress note Formatting of t his note might be different from the original. SW- Pt doing well. No ctx, vb, lof. Good FM PE: Gen- NAD, well appearing Abd- Soft, gravid, NT See flowsheet A/p 36 wk gestation - Bedside ultrasound showing vertex presentation - GBS today - Cavernoma or capillary telangiectasia: Neurosurgery consultation pending approval, and patient states she will be notified if approved in 2 days. She will update the office in 2 days. Anesthesia consultation order form completed today to be faxed - Labor precautions reviewed and reasons to call - Weekly visits Peter Teresa DO [facility] 02-24-2025 Miscellaneous Notes SW- Pt doing well. No ctx, vb, lof. Good FM PE: Gen- NAD, well appearing Abd- Soft, gravid, NT See flowsheet A/p 36 wk gestation - Bedside ultrasound showing vertex presentation - GBS today - Cavernoma or capillary telangiectasia: Neurosurgery consultation pending approval, and patient states she will be notified if approved in 2 days. She will update the office in 2 days. Anesthesia consultation order form completed today to be faxed - Labor precautions reviewed and reasons to call - Weekly visits Peter Teresa DO documented in this encounter [facility] 02-24-2025 Instructions Lucinda Nation MA - 02/24/2025 4:08 PM EDT SEQUENTIAL SCREENINGS The [facility] offers sequential screenings for women who are interested in screenings for chromosomal abnormalities and certain defects during a . The sequential screen combines ultrasound and blood tests to determine the risk of chromosomal abnormalities, including Down's Syndrome (Trisomy 21) and Trisomy 18, as well as open neural tube defects including spina bifida. Ultrasound examination is performed between 11 weeks and 13 weeks gestational age. Blood tests are drawn after the ultrasound and again later in the between 15 and 21 weeks gestational age. Please let your physician know if you are interested in this testing. It will require an appointment with our refresh technician. This is not an ultrasound performed by a physician in our office during a routine visit. SIGNS AND SYMPTOMS OF LABOR 1. Contractions every 10 minutes or more often 2. Clear, pink, or brownish fluid (water) leaking from vagina 3. Feeling that baby is pushing down, pressure 4. Low, dull backache 5. Cramps that feel like a period 6. Cramps with or without diarrhea If you notice any of the above symptoms, contact our office at [phone] and ask to speak with a nurse. After hours, you can call doctors registry at [phone] OR call [facility] at [phone] and ask to have the doctor reproduction machine loader paged. If you consider this an emergency, dial 9-3-0 or go to your nearest emergency department. NEED HELP? Are you dealing with a violent or abusive relationship? Are you a victim of rape or sexual assult? Call [facility] ([facility] 24 hour Crisis Hotline: 241.397.5919 or 951-846-1785. MANUAL Your Guide to a Healthy manual is now on-line. Visit [email or web address] to download your free copy documented in this encounter [facility] 02-24-2025 Telephone encounter Note Please keep follow up with patient and neurology. Thank you, Zina Jensen APRN.CNM [facility] 02-24-2025 Miscellaneous Notes Please keep follow up with patient and neurology. Thank you, Zina Jensen APRN.CNM FYI: Referral to neurology was denied by patient's insurance. Per insurance: Care has been deemed clinically inappropriate: Reason: patient had a MRI and neurology consultation in 2020 and does not need further imaging or f/u unless patient develops new neurological symptoms. documented in this encounter [facility] 02-14-2025 Telephone encounter Note FYI: Referral to neurology was denied by patient's insurance. Per insurance: Care has been deemed clinically inappropriate: Reason: patient had a MRI and neurology consultation in 2020 and does not need further imaging or f/u unless patient develops new neurological symptoms. [facility] 02-12-2025 History of Present illness Narrative Zina Mikey MORELAND CNM NAME: Dona Gutierrez CLINIC Number.: [id number] Date of : 1990 Date of Visit: February 12, 2025 Dear Ms. Zina RODRIGUEZM : Ms. Dona Gutierrez was seen for echocardiogram and pediatric cardiology consultation on February 12, 2025. She is a 34 year old woman, referred due to family history of CHD - FOB her has bicuspid aortic valve. Has never required intervention. 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 She was seen for initial evaluation at 22 weeks gestation, at which time echocardiogram which was overall normal. Because of the type of congenital heart defect a 3rd trimester echocardiogram was recommended, for which she presents now. In the interval she reports not new issues. echocardiogram on February 12, 2025 at 34-3/7 weeks gestation shows atrial situs solitus with levocardia. SVC and IVC return normally to the right atrium. The os of the coronary sinus opens normally to the right atrium. One right and one left pulmonary vein were seen returning normally into the left atrium. The atria were normal in size and there was normal right to left shunting at the atrial level. The left and right ventricles were normal in size and shortening. No ventricular hypertrophy. The ventricular septum appeared intact. Normal mitral and tricuspid valves without significant regurgitation. The left and right ventricular outflow tracts were widely patent. The aortic and ductal arches were widely patent; ductal arch mildly tortuous as frequently see in late gestation. heart rate and rhythm were regular and no pericardial effusion was seen. Normal Doppler of umbilical artery, hepatic vein, ductus venosus. In summary, the echocardiogram today showed normal intracardiac anatomy with normal ventricular function and normal heart rate and rhythm. We discussed these findings with Ms. Dona Gutierrez. We also discussed that a bicuspid valve itself (with normal function) can not generally be detected in life. In addition, the limitations of the echocardiogram and echocardiography in general, including the inability to exclude ASDs, some VSDs, minor valvar abnormalities, partial anomalous pulmonary venous return, persistent patent ductus arteriosus, and coarctation of the aorta, were explained. She plans to deliver at [facility]. Based on todays exam we felt she was cleared to deliver as planned with no special care of the baby from the standpoint of the heart. We recommend that the baby be seen by Pediatric Cardiology as an outpatient sometime in the first 3 months of life to assess for bicuspid aortic valve. Thank you for allowing me to participate in the care of your patient and please do not hesitate to contact me if I can be any further assistance. During this patient visit I have reviewed prior notes and imaging including from referring maternal medicine specialists, devoted time to counseling/coordination of care regarding results of the echocardiogram, clincal manifestations of the identified disease, prognosis, test results and treatment options, formulated and provided my recommendations to other caregivers by verbal and written communication as appropriate and assisted in coordination of care as needed. I spent a total of 30 minutes on the date of the service which included preparing to see the patient, [id number] patient care, completing clinical documentation, counseling and educating the patient/family/caregiver, communicating with other HCPs (not separately reported), and communicating results to the patient/family/caregiver. Sincerely, Misbah Chen MD documented in this encounter [facility] 02-12-2025 Note HNO ID: [id number] Author: MISBAH CHEN MD Service: ? Author Type: Physician Type: Progress Notes Filed: 02/12/2025 12:39 Note Text: Ms. Zina Jensen ANICETO CNLiyah NAME: Dona Gutierrez CLINIC Number.: [id number] Date of : 1990 Date of Visit: February 12, 2025 Dear Ms. Zina Jensen ANICETO CN : Ms. Dona Gutierrez was seen for echocardiogram and pediatric cardiology consultation on February 12, 2025. She is a 34 year old woman, referred due to family history of CHD - FOB her has bicuspid aortic valve. Has never required intervention. 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 She was seen for initial evaluation at 22 weeks gestation, at which time echocardiogram which was overall normal. Because of the type of congenital heart defect a 3rd trimester echocardiogram was recommended, for which she presents now. In the interval she reports not new issues. echocardiogram on February 12, 2025 at 34-3/7 weeks gestation shows atrial situs solitus with levocardia. SVC and IVC return normally to the right atrium. The os of the coronary sinus opens normally to the right atrium. One right and one left pulmonary vein were seen returning normally into the left atrium. The atria were normal in size and there was normal right to left shunting at the atrial level. The left and right ventricles were normal in size and shortening. No ventricular hypertrophy. The ventricular septum appeared intact. Normal mitral and tricuspid valves without significant regurgitation. The left and right ventricular outflow tracts were widely patent. The aortic and ductal arches were widely patent; ductal arch mildly tortuous as frequently see in late gestation. heart rate and rhythm were regular and no pericardial effusion was seen. Normal Doppler of umbilical artery, hepatic vein, ductus venosus. In summary, the echocardiogram today showed normal intracardiac anatomy with normal ventricular function and normal heart rate and rhythm. We discussed these findings with Ms. Dona Gutierrez. We also discussed that a bicuspid valve itself (with normal function) can not generally be detected in life. In addition, the limitations of the echocardiogram and echocardiography in general, including the inability to exclude ASDs, some VSDs, minor valvar abnormalities, partial anomalous pulmonary venous return, persistent patent ductus arteriosus, and coarctation of the aorta, were explained. She plans to deliver at [facility]. Based on todays exam we felt she was cleared to deliver as planned with no special care of the baby from the standpoint of the heart. We recommend that the baby be seen by Pediatric Cardiology as an outpatient sometime in the first 3 months of life to assess for bicuspid aortic valve. Thank you for allowing me to participate in the care of your patient and please do not hesitate to contact me if I can be any further assistance. During this patient visit I have reviewed prior notes and imaging including from referring maternal medicine specialists, devoted time to counseling/coordination of care regarding results of the echocardiogram, clincal manifestations of the identified disease, prognosis, test results and treatment options, formulated and provided my recommendations to other caregivers by verbal and written communication as appropriate and assisted in coordination of care as needed. I spent a total of 30 minutes on the date of the service which included preparing to see the patient, [id number] patient care, completing clinical documentation, counseling and educating the patient/family/caregiver, communicating with other HCPs (not separately reported), and communicating results to the patient/family/caregiver. Sincerely, Misbah Chen MD [facility] 02-11-2025 Telephone encounter Note [facility] signed by CP and faxed along with neuro consult order and 01/01/25 visit records. Lacey Mazariegos RN [facility] 02-11-2025 Miscellaneous Notes [facility] request for [facility] signed by CP and faxed along with neuro consult order and 01/01/25 visit records. Lacey Mazariegos RN See 02/06/25 phone note regarding the form too. Lacey Mazariegos RN documented in this encounter [facility] 02-10-2025 Instructions Mariaelena Rubio MA - 02/10/2025 1:52 PM EDT SEQUENTIAL SCREENINGS The [facility] offers sequential screenings for women who are interested in screenings for chromosomal abnormalities and certain defects during a . The sequential screen combines ultrasound and blood tests to determine the risk of chromosomal abnormalities, including Down's Syndrome (Trisomy 21) and Trisomy 18, as well as open neural tube defects including spina bifida. Ultrasound examination is performed between 11 weeks and 13 weeks gestational age. Blood tests are drawn after the ultrasound and again later in the between 15 and 21 weeks gestational age. Please let your physician know if you are interested in this testing. It will require an appointment with our refresh technician. This is not an ultrasound performed by a physician in our office during a routine visit. SIGNS AND SYMPTOMS OF LABOR 1. Contractions every 10 minutes or more often 2. Clear, pink, or brownish fluid (water) leaking from vagina 3. Feeling that baby is pushing down, pressure 4. Low, dull backache 5. Cramps that feel like a period 6. Cramps with or without diarrhea If you notice any of the above symptoms, contact our office at [phone] and ask to speak with a nurse. After hours, you can call doctors registry at [phone] OR call [facility] at [phone] and ask to have the doctor reproduction machine loader paged. If you consider this an emergency, dial [phone] or go to your nearest emergency department. NEED HELP? Are you dealing with a violent or abusive relationship? Are you a victim of rape or sexual assult? Call [facility] ([place]) 24 hour Crisis Hotline: 623.975.4264 or 821-209-6585. MANUAL Your Guide to a Healthy manual is now on-line. Visit [email or web address] to download your free copy documented in this encounter [facility] 02-10-2025 Progress note Formatting of t his note might be different from the original. S: Dona Gutierrez is a 34 year old female who presents at 34 weeks gestation for a routine visit. Positive movements. Denies headache, visual changes, chest pain, shortness of breath, vaginal bleeding, leakage of fluid, or dysuria. Feeling well, no complaints. O: See flow sheet Gen: No apparent distress Abd: Gravid, nontender ASSESSMENT/PLAN: 1. 34 weeks gestation of (HCC) - ICD9: V22.2, ICD10: Z3A.34 (primary diagnosis) 2. Encounter for supervision of normal first in third trimester 3. ERICK (generalized anxiety disorder) 4. History of bowel resection 5. Cavernoma or capillary telangiectasia - Has completed all childbirth education classes - Desires physiological onset of labor/ unmedicated - Repeat echo this week at [facility] - Having issues with [facility] approval for neurology consult- still in process - PTL precautions and kick counts reviewed - RTO 2 weeks for GRACE with GBS Vicky Engel APRN.CNM [facility] 02-10-2025 Miscellaneous Notes S: Dona Gutierrez is a 34 year old female who presents at 34 weeks gestation for a routine visit. Positive movements. Denies headache, visual changes, chest pain, shortness of breath, vaginal bleeding, leakage of fluid, or dysuria. Feeling well, no complaints. O: See flow sheet Gen: No apparent distress Abd: Gravid, nontender ASSESSMENT/PLAN: 1. 34 weeks gestation of (HCC) - ICD9: V22.2, ICD10: Z3A.34 (primary diagnosis) 2. Encounter for supervision of normal first in third trimester 3. ERICK (generalized anxiety disorder) 4. History of bowel resection 5. Cavernoma or capillary telangiectasia - Has completed all childbirth education classes - Desires physiological onset of labor/ unmedicated - Repeat echo this week at [facility] - Having issues with [facility] approval for neurology consult- still in process - PTL precautions and kick counts reviewed - RTO 2 weeks for GRACE with GBS Vicky Engel APRN.CNM documented in this encounter [facility] 02-07-2025 Telephone encounter Note See 02/06/25 phone note regarding the form too. Lacey Mazariegos RN [facility] 02-06-2025 Telephone encounter Note Patient referred for neurology consult by Zina Jensen. [facility] calling to notify office that they will be faxing over forms that need to be completed prior to scheduling patient. Form received and given to Zina Jensen to sign. Will need faxed back once signed. Kristen Patterson RN [facility] 02-06-2025 Miscellaneous Notes Patient referred for neurology consult by Zina Jensen. [facility] calling to notify office that they will be faxing over forms that need to be completed prior to scheduling patient. Form received and given to Zina Jensen to sign. Will need faxed back once signed. Kristen Patterson RN documented in this encounter [facility] 02-05-2025 Telephone encounter Note Spouse's FMLA paperwork completed and faxed back to employer. Patient notified. Valente Cotton MA [facility] 02-05-2025 Miscellaneous Notes Spouse's FMLA paperwork completed and faxed back to employer. Patient notified. Valente Cotton MA documented in this encounter [facility] 01-31-2025 Progress note Formatting of t his note might be different from the original. DM-Pt doing well. Denies vaginal Bleeding, Leaking fluid, or regular Contractions. Pt reports good movement Physical Exam: Gen: female in no apparent distress Abd: soft, Gravid. Non tender to palpation. See flow sheet @ 32.5 Assessment & Plan Encounter for supervision of normal first in third trimester (HCC) History of bowel resection At [age] year old had intussusception - bowel removed (not sure how much) and appendix removed Cavernoma or capillary telangiectasia Pt brought records from 2020- MRI an neuro notes- minimal risk. Faxed copy to L&D for anesthesia and will scan to [facility] 32 weeks gestation of ([facility]) RTO 2 weeks Kick counts reviewed Message sent to Cardiac team/ echo Dr. Lara- repeat echo not covered- pt wants to know if it is necessary or not. And can she still delivery at [facility]. ECHO was normal. Hanna Fonseca MD [facility] 01-31-2025 Miscellaneous Notes DM-Pt doing well. Denies vaginal Bleeding, Leaking fluid, or regular Contractions. Pt reports good movement Physical Exam: Gen: female in no apparent distress Abd: soft, Gravid. Non tender to palpation. See flow sheet @ 32.5 Assessment & Plan Encounter for supervision of normal first in third trimester ([facility]) History of bowel resection At [age] year old had intussusception - bowel removed (not sure how much) and appendix removed Cavernoma or capillary telangiectasia Pt brought records from 2020- MRI an neuro notes- minimal risk. Faxed copy to L&D for anesthesia and will scan to [facility] 32 weeks gestation of ([facility]) RTO 2 weeks Kick counts reviewed Message sent to Cardiac team/ echo Dr. Lara- repeat echo not covered- pt wants to know if it is necessary or not. And can she still delivery at [facility]. ECHO was normal. Hanna Fonseca MD documented in this encounter [facility] 01-23-2025 Telephone encounter Note Lab client services called stating IGG test already completed, but that IGM did need entered. Please file as needs added by today or cannot be completed. Please address in AMBERLY absence. Forrest Walker RN [facility] 01-23-2025 Miscellaneous Notes Lab client services called stating IGG test already completed, but that IGM did need entered. Please file as needs added by today or cannot be completed. Please address in AMBERLY absence. Forrest Walker RN Spoke with lab client services and yes, new order will show IgM and IgG. Kristen Patterson RN Order signed. 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 Thank you, Zina Jensen APRN.CNM documented in this encounter [facility] 01-22-2025 Telephone encounter Note Spoke with lab client services and yes, new order will show IgM and IgG. Kristen Patterson RN [facility] 01-22-2025 Telephone encounter Note Order signed. 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 Thank you, Zina Jensen APRN.CNM [facility] 01-20-2025 Progress note Formatting of t his note might be different from the original. Anatomy ultrasound reviewed. No abnormalities identified. Follow up as clinically indicated. Please place copy in ob chart. Valerio Leon MD [facility] 01-20-2025 Miscellaneous Notes Anatomy ultrasound reviewed. No abnormalities identified. Follow up as clinically indicated. Please place copy in ob chart. Valerio Leon MD documented in this encounter [facility] 01-17-2025 Note Indication Evaluation of growth excessive weight gain Impression - Single, live, intrauterine . - presentation is cephalic. - The biometry is consistent with the assigned gestational dating. - The EFW is 1841 g, at the 74%. AC is at the 85%. - Amniotic fluid volume is normal amount with an MVP of 5 cm and BAILEY of 17.5 cm. - The placenta is posterior. - No malformations visualized on a limited survey as detailed below. Recommendations Additional follow-up as clinically indicated. Maternal Assessment Height 168 cm Height (ft) 5 ft Height (in) 6 in Physical Exam Initial weight (lb) 125 lb Initial BMI 20.18 kg/m Maternal assessment other: 1 Para 0 REMOTE READ Method Transabdominal ultrasound examination [place] . Number of fetuses: 1 Dating LMP on: 06/16/2024 GA by LMP 30 w + 5 d SHANTI by LMP: 03/23/2025 GA by prior assessment 30 w + 5 d SHANTI by prior assessment: 03/23/2025 Ultrasound examination on: 01/17/2025 GA by U/S based upon: AC, BPD, Femur, HC GA by U/S 31 w + 4 d SHANTI by U/S: 03/17/2025 Assigned: based on stated SHANTI, selected on 09/13/2024 Assigned GA 30 w + 5 d Assigned SHANTI: 03/23/2025 General Evaluation Cardiac activity present. FHR 140 bpm. movements: present. Presentation: cephalic Placenta: Placental site: posterior Umbilical cord: Cord vessels: 3 vessel cord Amniotic fluid: Amount of AF: normal amount. MVP 5.0 cm. BAILEY 17.5 cm. Q1 5.0 cm, Q2 4.8 cm, Q3 3.6 cm, Q4 4.1 cm Growth Overview Exam date GA BPD (mm) HC (mm) AC (mm) FL (mm) HL (mm) EFW (g) 11/08/2024 20w 5d 46.1 19% 172 22% 161.7 62% 35.1 77% 34 78% 387 56% 01/17/2025 30w 5d 79.6 76% 287.8 53% 281.3 85% 60.2 79% 1841 74% Biometry Standard BPD 79.6 mm 32w 0d 76% Hadlock OFD 99.8 mm 29w 3d 30% Nicolaides HC 287.8 mm 30w 6d 53% Juan AC 281.3 mm 32w 1d 85% Hadlock Femur 60.2 mm 31w 2d 79% Juan EFW 1,841 g 31w 3d 74% Hadlock EFW (lb) 4 lb EFW (oz) 1 oz EFW by: Hadlock (HC-AC-FL) Extended Allergist/Immunologist Physician 5.5 mm Extremities / Bony Struc FL / HC 0.21 Other Structures FHR 140 bpm Anatomy Lateral ventricles: normal Cavum septi pellucidi: normal Cerebellum: normal Cisterna magna: normal 4-chamber view: normal RVOT view: normal LVOT view: normal 3-vessel view: normal Heart / Thorax Situs: situs solitus (normal) Diaphragm: normal Stomach: normal Kidneys: normal Bladder: normal Gender: Unspecified Wants to know sex: no Performed By: Kristen Thomas RDMS, RVT Read By: Maritza Mckeon M.D. [facility] 01-17-2025 Zina Rios APRN.CNM - 01/17/2025 3:37 PM EDT Images from the original note were not included. What is my perineum? Your perineum is the area between your vaginal opening and your rectum. This area stretches when you give , and sometimes the perineum or vagina will tear as your baby is being born. If your health care provider cuts an episiotomy during your , it is this area that is cut. You may need stitches after your baby is born if you have a tear or have an episiotomy. How often do perineal tears occur? About 4 to 8 out of every 10 women who give vaginally will have some tear in their perineum. About two?thirds of these women will need some stitches. Is an episiotomy necessary? An episiotomy is not necessary for most women. Although they were common before the , they are rarely done today. However, sometimes your health care provider may recommend an episiotomy just as your baby is being born. For example, an episiotomy can help if your baby needs to be born very quickly. You can ask your health care provider to talk with you about episiotomy during a visit. Can my health care provider do anything to help me avoid a tear? There are many ways that your health care provider can help to reduce your chance of tearing. For example, your provider may: Apply a warm compress to the perineum just before the baby comes out Recommend specific positions for you to be in as you push Provide gentle downward pressure on the baby's head as your baby is coming out Ask that you push your baby out between contractions Avoid the use of forceps or a vacuum to help your baby be born Can I do anything before the to help me avoid a tear? Preventing a perineal tear that occurs during has been the subject of many research studies. Several studies have found that perineal massage during the last weeks of can reduce tearing at for women giving for the first time. This massage--using 2 fingers to stretch your perineal tissues--is performed by you, in your home, once or twice a week, for the last 4 to 6 weeks of your . The next page of this handout tells how to do this massage. For every 15 women who do perineal massage, one woman will avoid an episiotomy and perineal tearing that needs stitches. While you massage, you can practice relaxing the muscles in your perineum. This can help you prepare for the stretching, burning feeling you may have when your baby's head is born. Relaxing this area during can help prevent tearing. Does perineal massage in help all women? Massage seems to work better for some women than others. Women having their first baby, women who are 30 years or older, and women who have had episiotomies before have fewer tears and less severe tears when perineal massage is done during the last weeks of . Can my partner help? Yes! Many women find that it is easier to have their partners do this massage. See the instructions for perineal massage on the next page for more information. Are there any risks to perineal massage during ? Not that we know of. It is free. It doesn't hurt. It is easy to do. And most women don't mind doing it. However, you should not stretch the perineum until it hurts or massage too often, which can hurt the skin in that area. Do not do perineal massage more than once or twice a week. Women who do it more often do not have a lower risk of perineal tearing. Check with your health care provider before beginning perineal massage. And, if you believe your amniotic fluid (bag of chatman) is leaking, check with your health care provider before putting anything in your vagina. Instructions for Perineal Massage During Wash your hands well, and make sure your fingernails are short. Relax in a private place where you can rest with your legs open and your knees bent. Some women like to lean on pillows for back support. Lubricate your thumbs and the perineal tissues. Use a lubricant such as vitamin E oil, coconut oil, almond oil, or any vegetable oil used for cooking--like olive oil. You may also try a water?soluble jelly, such as K?Y jelly, or your body's natural vaginal lubricant. Do not use baby oil, mineral oil, or petroleum jelly (Vaseline). Place your thumbs about 1 to 1.5 inches inside your vagina (see Figure 1). Press down (toward the anus) and to the sides until you feel a slight burning, stretching sensation. Hold that stretched position for 1 or 2 minutes. With your thumbs, slowly massage the lower half of the vagina using a U?shaped movement for 2 to 3 minutes at most. Concentrate on relaxing your muscles. This is a good time to practice slow, deep breathing techniques. Partners: If your partner is doing the perineal massage, follow the same basic instructions above. However, your partner should use his or her index fingers to do the massage (instead of thumbs). The same side?to?side, U?shaped, downward pressure method should be used. Good communication is important--be sure to tell your partner if you have too much pain or burning! Figure 1 1 Perineal Massage Flesch?Courtney Grade Level: 7.2 Approved September 2015. This handout replaces Perineal Massage in published in Volume 50, Issue 1, Sep/Oct 2004 SIGNS AND SYMPTOMS OF LABOR 1. Contractions every 10 minutes or more often 2. Clear, pink, or brownish fluid (water) leaking from vagina 3. Feeling that baby is pushing down, pressure 4. Low, dull backache 5. Cramps that feel like a period 6. Cramps with or without diarrhea If you notice any of the above symptoms, contact our office at [phone] and ask to speak with a nurse. After hours, you can call doctors registry at [phone] OR call [facility] at [phone] and ask to have the doctor reproduction machine loader paged. If you consider this an emergency, dial [phone] or go to your nearest emergency department. NEED HELP? Are you dealing with a violent or abusive relationship? Are you a victim of rape or sexual assult? Call [facility] ([facility] 24 hour Crisis Hotline: 290.587.7174 or 200-056-7992. MANUAL Your Guide to a Healthy manual is now on-line. Visit [email or web address] to download your free copy documented in this encounter [facility] 01-17-2025 Miscellaneous Notes AMBERLY-S: Dona Gutierrez is a 34 year old female who presents at 28w3d with SHANTI:03/23/2025, by Last Menstrual Period for a routine visit. Denies headache, visual changes, chest pain, shortness of breath, vaginal bleeding, leakage of fluid, or dysuria. Feeling well, no complaints. O: See flow sheet Gen: No apparent distress Abd: Gravid, nontender S=D, 28lb TWG Grwoth US 74th percentile, BAILEY 17 ASSESSMENT/PLAN: 1. Encounter for supervision of normal first in second trimester -Continue PNV 2. 30 weeks gestation of 3. History of posttraumatic stress disorder (PTSD) -Coping at this time, no medication 4. ERICK (generalized anxiety disorder) -Coping at this time, no medication 5. Family history of congenital heart defect - echo completed and has follow up on 01/21/25 to rule out BAV. -A echocardiogram is recommended to rule out BAV; this can be done electively if no immediate concerns. 6. Rh negative state in antepartum period, first trimester -Rhogam administered 01/01/25 7. History of asthma -No medication, stable. No Hemabate at delivery 7. Excessive weight gain in , third trimester -No further weight gain. Growth US today -Reviewed exercise and diet but feels she is making good choices 8. Cavernoma or capillary telangiectasia -Seen in 2019 at [facility] but no follow up since. -Records requested but additional form needed,awaiting response -Neurology consult 01/29/25 -Discussed possible anesthesia consult. PTL precautions RTO in 2 weeks Zina Jensen APRN.CNM documented in this encounter [facility] 01-17-2025 Progress note Formatting of t his note is different from the original. AMBERLY-S: Dona Gutierrez is a 34 year old female who presents at 28w3d with SHANTI:03/23/2025, by Last Menstrual Period for a routine visit. Denies headache, visual changes, chest pain, shortness of breath, vaginal bleeding, leakage of fluid, or dysuria. Feeling well, no complaints. O: See flow sheet Gen: No apparent distress Abd: Gravid, nontender S=D, 28lb TWG Grwoth US 74th percentile, BAILEY 17 ASSESSMENT/PLAN: 1. Encounter for supervision of normal first in second trimester -Continue PNV 2. 30 weeks gestation of 3. History of posttraumatic stress disorder (PTSD) -Coping at this time, no medication 4. ERICK (generalized anxiety disorder) -Coping at this time, no medication 5. Family history of congenital heart defect - echo completed and has follow up on 01/21/25 to rule out BAV. -A echocardiogram is recommended to rule out BAV; this can be done electively if no immediate concerns. 6. Rh negative state in antepartum period, first trimester -Rhogam administered 01/01/25 7. History of asthma -No medication, stable. No Hemabate at delivery 7. Excessive weight gain in , third trimester -No further weight gain. Growth US today -Reviewed exercise and diet but feels she is making good choices 8. Cavernoma or capillary telangiectasia -Seen in 2019 at [facility] but no follow up since. -Records requested but additional form needed,awaiting response -Neurology consult 01/29/25 -Discussed possible anesthesia consult. PTL precautions RTO in 2 weeks Zina Jensen APRN.CNM [facility] 01-16-2025 Telephone encounter Note Dona called the office to schedule echo follow up with Dr. Lara. Holding echo slot with Dr. Lara in [place] on 01/21 at 11am. Message sent to scheduling. [facility] 01-16-2025 Miscellaneous Notes Dona called the office to schedule echo follow up with Dr. Lara. Holding echo slot with Dr. Lara in [place] on 01/21 at 11am. Message sent to scheduling. documented in this encounter [facility] 01-03-2025 Telephone encounter Note In order to request pt's medical records from [facility], they need another form filled out in addition to the [facility] Medical Record Release form that the pt filled out. Letter (explaining this to the pt) typed up and the required form from [facility] and the [facility] Medical Record Release form mailed to pt per Shayy Gomez. [facility] 01-03-2025 Miscellaneous Notes In order to request pt's medical records from [facility], they need another form filled out in addition to the [facility] Medical Record Release form that the pt filled out. Letter (explaining this to the pt) typed up and the required form from [facility] and the [facility] Medical Record Release form mailed to pt per Shayy Gomez. documented in this encounter [facility] 01-01-2025 Progress note Formatting of t his note might be different from the original. AMBERLY-S: Dona Gutierrez is a 34 year old female who presents at 28w3d with SHANTI:03/23/2025, by Last Menstrual Period for a routine visit. Denies headache, visual changes, chest pain, shortness of breath, vaginal bleeding, leakage of fluid, or dysuria. Feeling well, no complaints. Concerned about weight gain, prior to was 120 lb. Concerned with L&D, hospital procedures, and support during labor and . Desires unmedicated and limited intervention. O: See flow sheet Gen: No apparent distress Abd: Gravid, nontender S=D, 28lb TWG ASSESSMENT/PLAN: 1. Encounter for supervision of normal first in second trimester -Continue PNV -Stopped ASA, was concerned about taking this -Tdap declined -Depression screen negative - plan given and information on CBE. Reviewed all questions about [facility] and expectations. 2. 28 weeks gestation of 3. History of posttraumatic stress disorder (PTSD) -Coping at this time, no medication 4. ERICK (generalized anxiety disorder) -Coping at this time, no medication 5. Family history of congenital heart defect - echo scheduled for 11/19 6. Rh negative state in antepartum period, first trimester -Rhogam administered today, O negative 7. History of asthma -No medication, stable. No Hemabate at delivery 7. Excessive weight gain in , third trimester -10 lb weight gain in last 4 weeks, will order growth US -Reviewed exercise and diet but feels she is making good choices 8. Cavernoma or capillary telangiectasia -Seen in 2019 at [facility] but no follow up since. Will refer to neurology and records requested. -Discussed possible anesthesia consult. PTL precautions reviewed and when to call RTO in 2 week Zina Jensen APRN.CNM [facility] 01-01-2025 Miscellaneous Notes AMBERLY-S: Dona Gutierrez is a 34 year old female who presents at 28w3d with SHANTI:03/23/2025, by Last Menstrual Period for a routine visit. Denies headache, visual changes, chest pain, shortness of breath, vaginal bleeding, leakage of fluid, or dysuria. Feeling well, no complaints. Concerned about weight gain, prior to was 120 lb. Concerned with L&D, hospital procedures, and support during labor and . Desires unmedicated and limited intervention. O: See flow sheet Gen: No apparent distress Abd: Gravid, nontender S=D, 28lb TWG ASSESSMENT/PLAN: 1. Encounter for supervision of normal first in second trimester -Continue PNV -Stopped ASA, was concerned about taking this -Tdap declined -Depression screen negative - plan given and information on CBE. Reviewed all questions about [facility] and expectations. 2. 28 weeks gestation of 3. History of posttraumatic stress disorder (PTSD) -Coping at this time, no medication 4. ERICK (generalized anxiety disorder) -Coping at this time, no medication 5. Family history of congenital heart defect - echo scheduled for 11/19 6. Rh negative state in antepartum period, first trimester -Rhogam administered today, O negative 7. History of asthma -No medication, stable. No Hemabate at delivery 7. Excessive weight gain in , third trimester -10 lb weight gain in last 4 weeks, will order growth US -Reviewed exercise and diet but feels she is making good choices 8. Cavernoma or capillary telangiectasia -Seen in 2019 at [facility] but no follow up since. Will refer to neurology and records requested. -Discussed possible anesthesia consult. PTL precautions reviewed and when to call RTO in 2 week Zina Jensen APRN.CNM documented in this encounter [facility] 01-01-2025 Note HNO ID: [id number] Author: ZINA JENSEN APRN.CNM Service: ? Author Type: Linux Unix Administrator Type: Progress Notes Filed: 01/01/2025 13:52 Note Text: [facility] 01-01-2025 History of Present illness Narrative documented in this encounter [facility] 01-01-2025 Instructions Zina Jensen APRN.CNM - 01/01/2025 8:01 AM EDT Images from the original note were not included. What is my perineum? Your perineum is the area between your vaginal opening and your rectum. This area stretches when you give , and sometimes the perineum or vagina will tear as your baby is being born. If your health care provider cuts an episiotomy during your , it is this area that is cut. You may need stitches after your baby is born if you have a tear or have an episiotomy. How often do perineal tears occur? About 4 to 8 out of every 10 women who give vaginally will have some tear in their perineum. About two?thirds of these women will need some stitches. Is an episiotomy necessary? An episiotomy is not necessary for most women. Although they were common before the 1990s, they are rarely done today. However, sometimes your health care provider may recommend an episiotomy just as your baby is being born. For example, an episiotomy can help if your baby needs to be born very quickly. You can ask your health care provider to talk with you about episiotomy during a visit. Can my health care provider do anything to help me avoid a tear? There are many ways that your health care provider can help to reduce your chance of tearing. For example, your provider may: Apply a warm compress to the perineum just before the baby comes out Recommend specific positions for you to be in as you push Provide gentle downward pressure on the baby's head as your baby is coming out Ask that you push your baby out between contractions Avoid the use of forceps or a vacuum to help your baby be born Can I do anything before the to help me avoid a tear? Preventing a perineal tear that occurs during has been the subject of many research studies. Several studies have found that perineal massage during the last weeks of can reduce tearing at for women giving for the first time. This massage--using 2 fingers to stretch your perineal tissues--is performed by you, in your home, once or twice a week, for the last 4 to 6 weeks of your . The next page of this handout tells how to do this massage.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 once daily. Needle, Disp, 22 G 22 gauge x 1" 1 Each once daily. (Patient not taking: Reported on 09/18/2023) 30 Each 3 estradiol (ESTRACE) 2 mg tablet Take 3 tablets by mouth once daily. (Patient not taking: Reported on 09/18/2023) 120 tablet 3 doxycycline (VIBRA-TABS) 100 mg tablet Take 1 tablet by mouth twice daily. (Patient not taking: Reported on 09/18/2023) 8 tablet 0 methylPREDNISolone (MEDROL) 16 mg tablet Take 1 tablet by mouth once daily. (Patient not taking: Reported on 09/18/2023) 4 tablet 0 progesterone 50 mg/mL injection Inject 1 mL intramuscularly once daily. Take in the morning before 10am (Patient not taking: Reported on 09/18/2023) 30 mL 3 Syringe with Needle, Disp, (BD LUER-AMY SYRINGE) To be used to draw up progesterone in oil (Patient not taking: Reported on 09/18/2023) 30 Each 3 Needle, Disp, 22 G (BD DISPOSABLE NEEDLES) 22 gauge x 1 1/2" To be used to inject progesterone in oil. (Patient not taking: Reported on 09/18/2023) 30 Each 3 ascorbic acid, vitamin C, (VITAMIN C) 500 mg tablet Take 500 mg by mouth once daily. (Patient not taking: Reported on 04/02/2024) COQ10, UBIQUINOL, ORAL Take 200 mg by mouth once daily. (Patient not taking: Reported on 04/02/2024) No current facility-administered medications for this visit. Allergies As of Date: 08/12/2024 Allergen Noted Reaction AMOXICILLIN 12/07/2022 Rash LATEX 12/07/2022 Swelling Fully Assessed 08/12/2024 Does patient have penicillin allergy: Unknown/ has an amoxicillin allergy REVIEW OF SYSTEMS: GENERAL: Negative for: Fever or Chills HEENT: Negative for: Headache, Impaired Vision, Ringing in Ears, Nosebleeds NECK: Negative for: Swelling, Pain, Stiffness RESPIRATORY: Negative for: Cough, Shortness of breath, Wheezing GASTROINTESTINAL: Negative for: Heartburn, Constipation, Diarrhea, Blood in stool, Vomiting MUSCULOSKELETAL: Negative for: Muscle or joint pain, stiffness, Joint swelling NEUROLOGIC/PSYCHIATRIC: Negative for: Weakness, Paralysis, Numbness, Tingling, Tremor, Anxiety, Depression, Memory loss SKIN: Negative for: Rash, Itching GENITOURINARY: Negative for: vaginal itching, vaginal discharge, hematuria or dysuria SENSITIVE EXAM: The sensitive examination was discussed with the Patient or Patient's Authorized Cardiac Exercise Physiologist. As applicable, any other physician, advance practice provider, medical student, or other health professional student that will be observing or involved in the sensitive examination for educational or training purposes was discussed with the Patient or Authorized Cardiac Exercise Physiologist. The Patient or Authorized Cardiac Exercise Physiologist has agreed to proceed with the sensitive examination. (Sensitive examination includes inspection and/or palpation of the breasts, pelvis, prostate and anorectal regions). PHYSICAL EXAM: BP 108/60 Ht 5' 6" (1.68m) Wt 125 lb (56.7kg) LMP 06/16/2024 BMI 20.19 kg/(m^2). GENERAL: pleasant in no apparent distress DERMATOLOGY: Normal, without lesions, non-icteric, and non-hirsute NECK: Supple, full range of motion, no adenopathy, and thyroid normal CHEST: Normal inspiratory effort BREAST: soft, non-tender, symmetric, no dominant mass, normal nipple-areolar complex, no lymphadenopathy, and no nipple discharge ABDOMEN: soft, non-tender, and no masses NEURO: alert and oriented x3,exam grossly non-focal PELVIS: External genitalia normal without lesions. Perineal body intact. No vaginal or cervical lesions. Cervix closed. Uterus 8 week size. No adnexal masses or tenderness.Small amount of tissue at cervical os, friable, uncertain if polyp. Clinical Pelvimetry: Pelvimetry clinically assessed as adequate Limited OB ultrasound exam: single intrauterine , positive cardiac activity, crown-rump length 7w5d, and normal bilateral adnexa ASSESSMENT: 34 year old at 8w1d wks gestational age PLAN: 1) Patient oriented to practice. Patient given new OB orientation folder. Discussed nutrition, folic acid supplementation, dietary guidelines, exercise, smoking, alcohol, caffeine, and drug use. Discussed gestational weight gain guidelines. Discussed routine OB labs including STD/HIV. Discussed how to access Your guide to a health and the Housemaid. Discussed hemoglobin electrophoresis. Patient: Accepts Reviewed midwifery and vice president quality assurance services that are available. 2) Screening: Hemoglobin A1C: ordered Baby Aspirin: The patient has been counseled about the potential benefits of low dose aspirin in and our recommendation that this be offered to all patients, regardless of whether they meet the high risk criteria specified above. She Accepts Aneuploidy Screening: Discussed aneuploidy screening, nuchal translucency/first trimester early anatomy ultrasound and NIPT. The risks/benefits and limitations of NIPT/aneuploidy screening were reviewed including the potential for false negative and false positive results. The availability of genetic counseling was reviewed. Information on aneuploidy screening was provided. The patient is uncertain. She will call back if she wants to proceed with screening. Pt aware of timing. Myriad Carrier Screening: Discussed myriad carrier screening. We discussed the availability of professional-society guided carrier screening and reviewed the conditions screened and limitations of screening. The availability of genetic counseling was reviewed. Information on carrier screening was provided. The patient had this previously. 3) Patient offered option of Virtual Visits. Patient prefers in person visits. 4) with congenital heart defect, will follow up after NT and possible echo Follow up in 4 weeks or sooner prsagrario Jensen APRN.CNM documented in this encounter [facility] 08-07-2024 Note HNO ID: [id number] Author: ZINA JENSEN APRN.CNM Service: ? Author Type: Linux Unix Administrator Type: Progress Notes Filed: 08/12/2024 16:13 Note Text: INITIAL OB ASSESSMENT HPI: Dona is a 34 year old White Female here to establish Obstetrical Care. Patient's last menstrual period was 06/16/2024 (exact date). from OB Dating Form. was planned Complaints: Abdominal pain Cramping and spotting that started yesterday OB History T0 L0 SAB0 IAB0 Ectopic0 Multiple0 Live Births0 Comment: 2 foster children Previous history: Prior : never History of 4th degree laceration: NA History of shoulder dystocia: No History of Hypertensive disorders including pre-eclampsia or gestational hypertension: No History of gestational diabetes: No Patient's Risk Screening for delivery: Have you had a prior cunha between 20w and 36w6d? No How many pregnancies have you had before? 0 Did you have a previous baby with a GBS Infection? No Please select all that apply for any prior : N/A MEDICAL/PSYCHOSOCIAL HISTORY: History of hemorrhage or bleeding concerns: No Thyroid Disease: No History of chronic hypertension: No History of pre-existing diabetes: No No results found for: "ABORHD" BMI 20.18 kg/(m2) Last Pap: History of abnormal pap: No Prior treatment for cervical dysplasia: none. Last HPV: History of STDs: None Partner History of STDs: None Did you have a partner with Herpes? No Tobacco use: No E-Cigarette/Vaping Use: No Caffeine use: No Drug use: No Alcohol use: No Multivitamin with Folic acid: No Would refuse blood transfusion if medically necessary: No Social Needs: How often does this describe you? I don't have enough money to pay my bills: Never Within the past 12 months, have you worried that your food would run out before you had money to buy more? Never In the past 12 months, has lack of reliable transportation kept you from going to medical appointments or work, or from getting things needed for daily living? Never In the past 12 months, have you had any concerns about having a place to live, or about the condition or quality of your housing? Never Would you like more information on any of the following (please check all that apply)? 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 Yes Do you have a history of abuse or trauma that may impact your experience? No Are you currently employed? Yes Depression/Anxiety Screening: denies, admits to symptoms of depression. OB Depression and Anxiety Screening- This Encounter (since 08/11/2024) None Genetic Screening: Partner present: No Patient verbalized knowledge of partner family health history: No Do you or your partner have any personal or family history of defects not previously discussed: No Do you have history of a complicated by anomaly, genetic condition, or demise: No Preeclampsia Risk Screening: Screening for prevention of preeclampsia: High risk factors: None Moderate risk ractors: Nulliparity OB Risk Screening: Completed, no positive findings documented. 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 Incident happened in the -hit her head on a cabinet. MRI w/wo contrast showed capillary telangiectasias-no concerns for bleeding. Had headaches after-resolved. Resolved with going to concussion physical therapy. PAST SURGICAL HISTORY Procedure Laterality Date APPENDECTOMY 1992 EXTRACTION ERUPTED TOOTH/EXR 2014 IVF RETRIEVAL ANY METHOD 04/14/2023 LARGE INTESTINE SURGERY HX 4-16 months old Current Outpatient Medications Medication Sig Dispense Refill nutritional supplement/fiber (JUICE PLUS FIBRE ORAL) Take by mouth once daily. fish oil/borage/flax/om3,6,9 1 (OMEGA 3-6-9 ORAL) Take by mouth once daily. Lactobac no.41/Bifidobact no.7 (PROBIOTIC-10 ORAL) Take by mouth once daily. Needle, Disp, 22 G 22 gauge x 1" 1 Each once daily. (Patient not taking: Reported on 09/18/2023) 30 Each 3 estradiol (ESTRACE) 2 mg tablet Take 3 tablets by mouth once daily. (Patient not taking: Reported on 09/18/2023) 120 tablet 3 doxycycline (VIBRA-TABS) 100 mg tablet Take 1 tablet by mouth twice daily. (Patient not taking: Reported on 09/18/2023) 8 tablet 0 methylPREDNISolone (MEDROL) 16 mg tablet Take 1 tablet by mouth once daily. (Patient not taking: Reported on 09/18/2023) 4 tablet 0 progesterone 50 mg/mL injection Inject 1 mL intramuscularly once da (more content not included)... [facility] 08-07-2024 Instructions Valente Cotton MA - 08/07/2024 3:19 PM EST Please select the following link to access the [facility] Your Guide to a Healthy . [email or web address] Please select the following link to access the [facility] Your Guide to a Healthy . [email or web address] documented in this encounter [facility] 07-31-2024 Telephone encounter Note Patient notified and scheduled. Lacey Mazariegos RN [facility] 07-31-2024 Miscellaneous Notes Patient notified and scheduled. Lacey Mazariegos RN Can you please call patient and let her know I can see her for a New OB appointment on 08/12 at 9am. Please put her in my 9:30am spot but let her know to come at 9am for intake and rooming as I am fitting her into this appointment time. You can cancel her NOB on 08/13. Thank you, Zina Jensen APRN.CNM documented in this encounter [facility] 07-31-2024 Telephone encounter Note Can you please call patient and let her know I can see her for a New OB appointment on 08/12 at 9am. Please put her in my 9:30am spot but let her know to come at 9am for intake and rooming as I am fitting her into this appointment time. You can cancel her NOB on 08/13. Thank you, Zina Jensen APRN.CNM [facility] Work Phone: 04-10-2024 Telephone encounter Note Message sent to patient. Instructed patient to contact medical records to have her records sent to another healthcare provider. Jennifer Puri RN April 10, 2024 3:20 PM [facility] 04-10-2024 Miscellaneous Notes Message sent to patient. Instructed patient to contact medical records to have her records sent to another healthcare provider. 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 Will do office hysteroscopy. I spent a total of 40 minutes on the date of the service which included preparing to see the patient, [id number] patient care, completing clinical documentation, counseling and educating the patient/family/caregiver, and ordering medications, tests, or procedures. MD HAYDEE Barnhart Frozen Embryo Transfer Treatment Plan: Number of embryos: one Uterine cavity testing: office hysteroscopy Protocol: Natural If programmed, type of estradiol: N/A Type of progesterone: progesterone supp 200 mg bid OK for OCPs to delay cycle start if needed: Yes Brad Rodriguez. 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 Will do office hysteroscopy. I spent a total of 40 minutes on the date of the service which included preparing to see the patient, [id number] patient care, completing clinical documentation, counseling and educating the patient/family/caregiver, and ordering medications, tests, or procedures. MD HAYDEE Barnhart Frozen Embryo Transfer Treatment Plan: Number of embryos: one Uterine cavity testing: office hysteroscopy Protocol: Natural If programmed, type of estradiol: N/A Type of progesterone: progesterone supp 200 mg bid OK for OCPs to delay cycle start if needed: Yes Brad Victor MD 04/02/2024 documented in this encounter [facility] 04-02-2024 Note HNO ID: [id number] Author: BRAD RODRIGUEZ MD Service: ? Author Type: Physician Type: Progress Notes Filed: 04/09/2024 16:14 Note Text: Pritchard pt Dona Gutierrez is a 33 year old G 0 P 0 Ab 0 female with h/o male factor infertility. Did an fresh TESE IVF cycle in April of 2023 and have frozen vials fo sperm. Has transferred one NL embryos and did not get . She has remaining NL and No result embryo in storage. He saw Dr Anne again for epididymal obstruction. The first surgery was just for the purpose of getting sperm, the second was for reconstruction. He originally presented with azospermia secondary to epididymal obstruction after about 18 months of infertility. Menstrual Hx: Menarche: 16 Cycle length: 28-30 day cycle Duration: 3-5 Flow: Heavy x 3 days then tapers to light Other: Cramping Patient's last menstrual period was 03/26/2024 (exact date). Past Medical Hx: PAST MEDICAL HISTORY No date: Childhood asthma 09/2020: Traumatic brain injury (HCC) Comment: H/O traumatic brain injury in September 2020. Incident happened in the -hit her head on a cabinet. MRI w/wo contrast showed capillary telangiectasias-no concerns for bleeding. Had headaches after-resolved. Resolved with going to concussion physical therapy. Past Surgical Hx: PAST SURGICAL HISTORY 1993: APPENDECTOMY 2015: EXTRACTION ERUPTED TOOTH/EXR Social History Tobacco Use Smoking status: Never Smokeless tobacco: Never Substance Use Topics Alcohol use: Not Currently Comment: very occasional Drug use: Never Review of Systems: General: No weight loss, malaise or fevers Respiratory: No cough, hemoptysis, asthma, recent chest infection, wheezing no asthma seen teen years. Cardiovascular: No history of chest pain, palpitation, orthopnea, cyanosis, pedal edema Gastrointestinal: No blood in stool, pain with BM, tarry stool, persistent diarrhea or constipation Genitourinary: occasional UTIs Endocrine: No history of thyroid disorder, diabetes, cold intolerance, heat intolerance, polydypsia Musculoskeletal: Negative I have reviewed the above past medical history and review of systems as completed by my Self . 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 Will do office hysteroscopy. I spent a total of 40 minutes on the date of the service which included preparing to see the patient, [id number] patient care, completing clinical documentation, counseling and educating the patient/family/caregiver, and ordering medications, tests, or procedures. Brad Rodriguez MD HAYDEE Frozen Embryo Transfer Treatment Plan: Number of embryos: one Uterine cavity testing: office hysteroscopy Protocol: Natural If programmed, type of estradiol: N/A Type of progesterone: progesterone supp 200 mg bid OK for OCPs to delay cycle start if needed: Yes Brad Rodriguez. 04/02/2024 [facility] 04-02-2024 History of Present illness Narrative Christal pt Dona Gutierrez is a 33 year old G 0 P 0 Ab 0 female with h/o male factor infertility. Did an fresh TESE IVF cycle in April of 2023 and have frozen vials fo sperm. Has transferred one NL embryos and did not get . She has remaining NL and No result embryo in storage. He saw Dr Anne again for epididymal obstruction. The first surgery was just for the purpose of getting sperm, the second was for reconstruction. He originally presented with azospermia secondary to epididymal obstruction after about 18 months of infertility. Menstrual Hx: Menarche: 16 Cycle length: 28-30 day cycle Duration: 3-5 Flow: Heavy x 3 days then tapers to light Other: Cramping Patient's last menstrual period was 03/26/2024 (exact date). Past Medical Hx: PAST MEDICAL HISTORY No date: Childhood asthma 09/2020: Traumatic brain injury (HCC) Comment: H/O traumatic brain injury in September 2020. Incident happened in the -hit her head on a cabinet. MRI w/wo contrast showed capillary telangiectasias-no concerns for bleeding. Had headaches after-resolved. Resolved with going to concussion physical therapy. Past Surgical Hx: PAST SURGICAL HISTORY 1992: APPENDECTOMY 2014: EXTRACTION ERUPTED TOOTH/EXR Social History Tobacco Use Smoking status: Never Smokeless tobacco: Never Substance Use Topics Alcohol use: Not Currently Comment: very occasional Drug use: Never Review of Systems: General: No weight loss, malaise or fevers Respiratory: No cough, hemoptysis, asthma, recent chest infection, wheezing no asthma seen teen years. Cardiovascular: No history of chest pain, palpitation, orthopnea, cyanosis, pedal edema Gastrointestinal: No blood in stool, pain with BM, tarry stool, persistent diarrhea or constipation Genitourinary: occasional UTIs Endocrine: No history of thyroid disorder, diabetes, cold intolerance, heat intolerance, polydypsia Musculoskeletal: Negative I have reviewed the above past medical history and review of systems as completed by my Self . 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 Will do office hysteroscopy. I spent a total of 40 minutes on the date of the service which included preparing to see the patient, [id number] patient care, completing clinical documentation, counseling and educating the patient/family/caregiver, and ordering medications, tests, or procedures. Brad Rodriguez MD HAYDEE Frozen Embryo Transfer Treatment Plan: Number of embryos: one Uterine cavity testing: office hysteroscopy Protocol: Natural If programmed, type of estradiol: N/A Type of progesterone: progesterone supp 200 mg bid OK for OCPs to delay cycle start if needed: Yes Brad Rodriguez. 04/02/2024 documented in this encounter [facility] 09-18-2023 History of Present illness Narrative Images from the original note were not included. REPRODUCTIVE ENDOCRINOLOGY AND INFERTILITY RETURN PATIENT CLINIC NOTE No call, no show for scheduled visit today. Lalit Pritchard MD October 01, 2023 9:55 PM documented in this encounter [facility] 07-21-[address] Pritchard, patient needs to follow up before making plans for FET #2. Mychart sent to patient. Paige Madrigal RN July 21, 2023 3:00 PM documented in this encounter [facility] 07-17-2023 Miscellaneous Notes Return call. Wants to set up FET #2 in September or October. May call financial to self pay for FET if she decides not to keep current insurance. Will message Dr. Pritchard about another FET cycle and confirm plan. Paige Madrigal RN July 17, 2023 4:07 PM On day 5 of current cycle. documented in this encounter [facility] 06-29-2023 Procedure note [facility]I HAYDEE TRANSFER PROCEDURE NOTE Date: 06/22/2023 Primary Proceduralist: Lalit Pricthard MD Sample Card Maker(s): Not applicable Informed Consent: Consents and Labels Consent Signed: Informed Consent obtained and on the chart Labels Verified With Patient: Yes Indications: Dona Gutierrez, is a 33 year old female here today for Embryo Transfer. [place] Protocol: UNIVERSAL PROTOCOL / SAFETY CHECKLIST Procedure to be Performed: Embryo transfer Sign In: A Moment of CARE was completed. Personnel directly involved with the procedure wore the appropriate PPE (Personal Protective Equipment). No special equipment needed. Patient/Surrogate Stated/Verified: PATIENT VERIFIED(optional for EMERGENT procedures): Patient name, Date of , Relevant allergies, and The intended procedure Time Out Communication: Intended patient and procedure match the source documents. Consent documented and matches the intended procedure. Relevant labs, photos, and/or imaging studies have been reviewed. No correct side/site applicable for marking and visibility. No medications required for procedure. Fire risk assessed and interventions discussed. No implant(s) inserted. Sign Out: SIGN OUT (optional for EMERGENT procedures): No specimen collected. All instruments, equipment, possible retained foreign bodies accounted for. Post-procedure follow-up management communicated and Plan of Care Visit completed when applicable. Lalit Pritchard MD TRANSFER Transfer Date: 06/22/23 Transfer Procedure: Embryo transfer Transfer Physician: Lalit Pritchard M.D. Pre-Procedure Diagnosis: Infertility Post-Procedure Diagnosis: Infertility Source of embryos: Patient Total Thawed: 1 # of Embryos Transferred: 1 ASRM Guidelines: Recommended limits adhered to Ease of Transfer: Easy Direction: AV Curve: none Depth (cm): 5.8 Distance from fundus (mm): 10 Cell Stage: Grade: PGT?: 1: hatching blast 411 NL CB1 Specimens: None I/primary surgeon/proceduralist performed the entire procedure. SIGNATURE: Lalit Pritchard MD PATIENT NAME: Dona Gutierrez DATE: June 29, 2023 TIME: 6:03 PM documented in this encounter [facility] 06-22-2023 History of Present illness Narrative Embryo Transfer procedure performed. Detailed notes can be found in the paper chart in the [facility]NA[facility] Office. Patricia Gregory documented in this encounter [facility] 06-22-2023 Instructions Vicky Barnes RN - 06/22/2023 1:38 PM EDT POST EMBRYO TRANSFER INSTRUCTIONS You will need to have your blood drawn for Quantitative HCG on 07/06/2023 at giorgi. You can expect to be called the afternoon of your blood draw with your test results. If for any reason that date or location is changed, please call [phone] to inform us. Continue your current medications as instructed UNTIL YOU ARE 10 WEEKS or until a BLOOD test is confirmed negative. It is not uncommon to have breast tenderness, bloating, vaginal spotting ranging from pink to red to brown and generally feeling premenstrual while waiting to test. You can feel this way and still be - DO NOT STOP YOUR MEDICATIONS until testing is completed. Call the office if you develop: - Pain, redness and heat at your injection sites From the day of your transfer on, please treat yourself as if you are . Things to avoid: - Hot tubs/raising your core temperature - Chemical exposures - Drugs/medications that are not safe in - Processed lunch meat, unpasteurized cheeses - Smoking - Fish that are high in mercury Our recommendations on maintaining a healthy lifestyle during this time include: - Regular physical activity. Bed-rest is NOT recommended and will not increase your chance of - Daily vitamin or folic acid - Healthy diet - Adequate sleep - Sexual intimacy/intercourse/orgasm will not interfere with implantation. It is difficult to maintain the balance between optimism and realism. Remember you have done and are doing all that you can to improve your odds. Set reasonable expectations for yourselves. Keeping yourself busy and mentally distracted will help the time pass while waiting to test. If you have any questions, please call [phone]. documented in this encounter [facility] 06-21-2023 Miscellaneous Notes Your frozen embryo transfer is scheduled for : 06/22/23 at 2:00pm Please plan to drink 16-20 ounces of fluid an hour before the transfer. Arrive 15 minutes before your scheduled transfer time. I would like to review with you the embryo transfer plan form that you signed prior to starting the cycle. The planned number of embryos to thaw is: 1 Do you want to thaw another embryo if one fails to survive? Y Do you agree to have the embryologist select the best embryo for transfer ? Y If you had PGT testing, did you want a specific embryo transferred? N Any other instructions? N Pablo Smiley documented in this encounter [facility] 05-31-2023 History of Present illness Narrative We met with Dona in the Clinical Cancer Genetics Program on 05/31/23 for risk assessment and counseling. Dona was referred by Erik Cheng MD. MEDICAL HISTORY: Dona is currently 33 y.o. and is being seen due to her family history of cancer. She reports she is going through the IVF process and has embryos but is waiting for transfer. FAMILY HISTORY: A three generation pedigree was obtained and will be on file in [facility] in the media tab. It is important to note that patient reported cancer diagnoses were not confirmed with medical records. Family History Problem Relation Age of Onset Prostate Cancer Father 48 Skin Cancer Father non-melanoma Breast Cancer Maternal Aunt 51 lumpectomy Non-Hodgkins Lymphoma Maternal Aunt 51 Thyroid Cancer Maternal Aunt Diabetes Maternal Uncle Schizophrenia Maternal Uncle Crohn's Disease Paternal Aunt Arthritis - Rheumatoid Paternal Aunt Stroke Maternal Grandmother Diabetes Maternal Grandmother Colorectal Cancer Maternal Grandfather d. 70's Breast Cancer Paternal Grandmother 50 recurrence mets to brain and lung after bilateral mastectomies Prostate Cancer Paternal Grandfather 50's or 60's RISK ASSESSMENT: Dona's family history of cancer could be associated with a hereditary cancer syndrome. We reviewed the differences between sporadic, familial, and hereditary cancers. We discussed the BRCA1/2 genes, as well as other high-risk and moderate-risk genes associated with breast and other cancers. Given the possibility of multiple hereditary syndromes in Dona's family, we discussed testing with a multi-gene panel to include the BRCA1/2 genes. In addition to reviewing the benefits and limitations of genetic testing, we discussed the patient may receive a positive, negative, or uncertain result. We reviewed the inheritance patterns associated with these mutations, and she is aware that, if a mutation is identified in her, each of her first-degree relatives would have a 50% chance of carrying that mutation as well. We discussed that the results of genetic testing may business change manager time as the field of genetics progresses. We discussed various testing options, costs, and insurance issues, including the Genetic Information Nondiscrimination Act (ALESSIA). We also discussed the specific limitations associated with doing genetic testing in an unaffected individual. PERSONALIZED BREAST CANCER RISK ASSESSMENT: We estimated the risk for Dona to develop breast cancer based upon the EMERY risk model, as shown in the table below. The EMERY model is strongly dependent on family history of breast cancer and also includes reproductive and hormonal factors and breast density. It is important to note that the EMERY risk model takes into consideration the effect of normal testing of the BRCA genes. However, it does not include the impact of normal test results for other breast cancer genes, which in theory could lower the estimated breast cancer risk. These risk estimates and subsequent screening recommendations could change if anyone else in the family were to undergo genetic testing. Estimated Risk of Developing Breast Cancer Purpose of Model Model Name Risk Assessment Likelihood of developing breast cancer based on relatives with breast cancer and hormonal factors. Also considers negative BRCA test results. EMERY (v8) Ten year risk = 1.2% Lifetime risk = 23.6% IMPRESSION AND PLAN: Based on her personal information and family history, the patient meets NCCN criteria for testing because of the age of her grandmother's breast cancer diagnosis (3) and the number of individuals with breast and prostate cancer on her father's side of the family (3). Dona consented to pursue germline testing with the [facility] CancerNext Expanded Panel with RNA analysis (core panel BRCA1/2, ordering provider: Elin Paul MD). Sample for testing will be obtained by blood draw today. Dona elected insurance billing. We will contact Dona via preference selected below when results are available. We will make specific follow-up and management recommendations based on the test result. Results Delivery Preference [x] Uploaded directly to Fridge [] Telephone call followed by upload to Fridge Counseling time spent: 35 minutes Shelby Perry MS, [facility] Licensed Genetic Counselor Rice Farmer, Internal Medicine [facility] E-mail: [email or web address] documented in this encounter [facility] 05-16-2023 Miscellaneous Notes Called patient to number listed, verified pt. Reviewed when to start estrace. Steps sent to . Patient reports that she has had some intermittent chest pain. She is meeting with her PCP Monday. Reports it's minimal pain but does want to get it checked out. Advised she should get clearance to move forward after seeing PCP All questions answered. She Bermudez RN May 16, 2023 3:00 PM Pt has been notified she is cleared for FET, please follow up with next steps documented in this encounter [facility] 05-15-2023 Miscellaneous Notes Called and spoke with pt. Advised her PA for FET was submitted this morning. Will call with a determination. Pt asked when meds can be ordered. Advised as soon as the PT for the FET comes back. Pt would like to know if there is any update on her FET referral documented in this encounter [facility] 05-11-2023 Miscellaneous Notes Let patient know that have not yet destroyed and that I will make a note that we will not destroy the abnormal. Patricia Gregory Ivf Patient talked to [facility] and has an update on the embryos that she has stored here she does not want to destroy any embryos Does have questions regarding the embryos She would really like a call back due to the information that she was just given and the time frame documented in this encounter [facility] 05-10-2023 Miscellaneous Notes Called patient to number listed, verified pt. Reviewed PGTA questions, message sent to RE lab team Reviewed steps for transfer. Needs FET clearance, message to financial team. Thaw plan signed by Dr Pritchard and uploaded. Once we have clearance medications will be ordered. All questions answered. She Bermudez RN May 10, 2023 2:59 PM Patient calling about pgta, and ordering meds. Following up on next steps. lmp 04/26 on day 14 she believes. Pt has ques on pgt testing documented in this encounter [facility] 05-04-2023 History of Present illness Narrative IVF freeze all cycle. PGT. Treva Zacarias May 04, 2023 1:41 PM documented in this encounter [facility] 05-02-2023 History of Present illness Narrative Dona Gutierrez is a 33 year old here for SIS. Referred by: Racheal Bhatt [id number] [facility] [id number] Chief Complaint: Uterine cavity evaluation Endometrial Biopsy: No Hormonal therapy: No. LMP: Patient's last menstrual period was 04/26/2023 (exact date). Cycles: PERIOD REGULARITY: irregular Contraception: none HCG: negative UNIVERSAL PROTOCOL / SAFETY CHECKLIST Procedure to be Performed: SIS procedure Sign In: A Moment of CARE was completed. Personnel directly involved with the procedure wore the appropriate PPE (Personal Protective Equipment). No special equipment needed. Patient/Surrogate Stated/Verified: PATIENT VERIFIED(optional for EMERGENT procedures): Patient name, Date of , Relevant allergies, and The intended procedure Time Out Communication: Intended patient and procedure match the source documents. Consent documented and matches the intended procedure. Sign Out: SIGN OUT (optional for EMERGENT procedures): No specimen collected. All instruments, equipment, possible retained foreign bodies accounted for. Post-procedure follow-up management communicated and Plan of Care Visit completed when applicable. Jacque Corona LPN PROCEDURE: EXTERNAL GENITALIA: Normal in appearance without lesions VAGINA: Normal in appearance without lesions Speculum placed into the vagina with excellent visualization of the cervix. Cervix cleaned with Hibiclens. SIS catheter inserted into the uterus without difficulty. Speculum removed and 75 mL sterile saline injected into the uterine cavity under ultrasound guidance. Procedure Summary: Patient tolerated procedure well. See ViewPoint for procedure results. Racheal Bhatt APRN.MANAGER LIFE documented in this encounter [facility] 04-27-2023 Miscellaneous Notes Pt has SIS scheduled. Thaw plan sent to my chart. Pt will upload thaw plan. Will need to order meds once checklist complete. Babs Garcia April 27, 2023 3:31 PM Please follow up with patient. documented in this encounter [facility] 04-21-2023 Miscellaneous Notes Called patient to number listed, verified pt. Patient reports she is feeling better today, symptoms resolved. She is able to have normal BM and is urinating normally. She Bermudez RN April 21, 2023 11:57 AM Pt waiting for call back reg her plan documented in this encounter [facility] 04-20-2023 Miscellaneous Notes Patient called by lab to give update on embryos. Let patient know that able to biopsy and freeze 1 more today (day 6). Will hold others until tomorrow. Patricia Gregory April 20, 2023 10:33 AM documented in this encounter [facility] 04-19-2023 Miscellaneous Notes Patient called by lab to give update on embryos. 1 blast was biopsied and frozen on day 5. Pablo Smiley April 19, 2023 9:28 AM documented in this encounter [facility] 04-14-2023 History of Present illness Narrative Retrieval procedure performed. Detailed notes can be found in the paper chart in the [facility] Office. Ab Tang IVF Tech documented in this encounter [facility] 04-13-2023 History of Present illness Narrative Component Latest Ref Rng & Units 04/13/2023 LH See comment mIU/mL 99.9 Progesterone See comment ng/mL 8.7 (H) hCG Quantitative, Blood <5.0 mIU/mL 202.0 (H) Trigger labs reviewed in meeting. Nayana Grullon RN April 13, 2023 9:56 AM documented in this encounter [facility] 04-12-2023 Miscellaneous Notes Addended by: KARLA AVILES on: 04/12/2023 03:56 PM Modules accepted: Orders documented in this encounter [facility] 04-12-2023 History of Present illness Narrative The patient is here today for follicular ultrasound and blood work. The patient reports no problems or complaints. Ultrasound and blood will be reviewed by the physician, the flow sheet will be updated and instructions will be communicated to the patient. Pt did not stay for nursing. Karla Aviles RN Called pt by listed phone number. Reviewed trigger instructions and sent by CellPly. Pt scheduled for post trigger labs for tomorrow at office 04/13/23. Reviewed retrieval instructions and sent by CellPly. Pt verbalizes understanding. Karla Aviles RN April 12, 2023 2:59 PM documented in this encounter [facility] 04-11-2023 History of Present illness Narrative The patient is here today for follicular ultrasound and blood work. The patient reports no problems or complaints. Ultrasound and blood will be reviewed by the physician, the flow sheet will be updated and instructions will be communicated to the patient. Met with pt. Questions answered. Reviewed potential timeline. Taught HCG and Lupron trigger. Karla Aviles RN Called pt by listed phone number. Reviewed IVF plan and sent by CellPly, per cycle flowsheet. Patient to return to office 04/12/23. Pt verbalized understanding. plan is to trigger tomorrow for retrieval Monday, if all looks appropriate tomorrow. Message sent to Dr Anne to update. Karla Aviles RN April 11, 2023 2:03 PM documented in this encounter [facility] 04-07-2023 History of Present illness Narrative The patient is here today for follicular ultrasound and blood work. The patient reports no problems or complaints. Ultrasound and blood will be reviewed by the physician, the flow sheet will be updated and instructions will be communicated to the patient. Pt did not stay for nursing. Krala Aviles RN Called pt by listed phone number. Reviewed IVF plan and sent by Memampradha, per cycle flowsheet. Patient to return to office 04/11/23. Pt verbalized understanding. Karla Aviles RN April 07, 2023 1:34 PM documented in this encounter [facility] 04-06-2023 History of Present illness Narrative Nancy Anne MD Parekh, Neel, MD; Colt Butler MD; Len Jhaveri MD; P Haydee Ivf Pool IVF Team, We are on the books for a fresh TESE for this patient's next week. If you can please update this group that would be great. I am out Mon- but Amisha Prieto and Carrie are available. If the plan is for Monday, please reach out by phone. Otherwise staff message works. Thank you SV message in blue sticker, and on flow sheet to remeber to call or message . Jerilyn Whitlock APRN.CNP April 06, 2023 10:14 AM documented in this encounter [facility] 04-05-2023 Miscellaneous Notes Called [facility] to clarify order for Lupron kit with 1 cc insulin syringe. ciValue message sent to update pt. Karla Aviles RN April 05, 2023 11:02 AM documented in this encounter [facility] 04-05-2023 Miscellaneous Notes Called pt to advise of clearance from [facility] for the extension of her IVF. Refund initiated through [facility] for $13,626.00. PT BILLING ULTRASOUNDS TO INSURANCE Pt would like to discuss insurance update documented in this encounter [facility] 04-04-2023 History and physical note HISTORY AND PHYSICAL EXAMINATION GYNECOLOGY SERVICE DATE: 04/04/2023 SERVICE TIME: 7:45 AM PRIMARY CARE PHYSICIAN: Dr. Centeno in [place], [place] CHIEF COMPLAINT/HISTORY OF PRESENT ILLNESS: Ms. Gutierrez is a 32 year old female referred to me for preoperative evaluation. My final recommendations will be communicated back to the requesting physician/surgeon by the way of the shared medical record. Referring Surgeon: Dr. 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 Pritchard's consult note 10/24/2022* Refer to Assessment section for details of any comorbidities. Patient is Able to Perform the Following Physical Activity: Walks two miles daily-denies SOB during activity Significant Anesthesia Considerations: None. PAST MEDICAL/SURGICAL/FAMILY/SOCIAL HISTORY PAST MEDICAL HISTORY Diagnosis Date Childhood asthma *H/O traumatic brain injury in September 2020. Incident happened in the -hit her head on a cabinet. MRI w/wo contrast showed capillary telangiectasias-no concerns for bleeding. Had headaches after-resolved. Resolved with going to concussion physical therapy. PAST SURGICAL HISTORY Procedure Laterality Date APPENDECTOMY 1992 EXTRACTION ERUPTED TOOTH/EXR 2014 FAMILY HISTORY Problem Relation Age of Onset Prostate Cancer Father Hypertension Mother Hyperlipidemia Mother other (type II diabetes) Mother Anxiety disorder Mother Post-Traumatic Stress Disorder Mother Other Sleep Disorder Brother Hypertension Brother Drug abuse Sister No Known Problems Sister Colon Cancer Maternal Grandfather other (uncontrolled diabetes) Maternal Grandmother other (myocardial infarction) Maternal Grandmother Prostate Cancer Paternal Grandfather Hypertension Paternal Grandfather Glaucoma Paternal Grandfather Breast Cancer Paternal Grandmother other (atrial fibrillation) Paternal Grandmother Breast Cancer Maternal Aunt Diagnosed at age 51 other (non hodgkins lymphoma) Maternal Aunt SOCIAL HISTORY Social History Tobacco Use Smoking status: Never Smokeless tobacco: Never Substance Use Topics Alcohol use: Not Currently Comment: very occasional Drug use: Never MEDICATIONS/ALLERGIES Current Outpatient Medications Medication Sig Dispense Refill nutritional supplement/fiber (JUICE PLUS FIBRE ORAL) Take by mouth once daily. fish oil/borage/flax/om3,6,9 1 (OMEGA 3-6-9 ORAL) Take by mouth once daily. Lactobac no.41/Bifidobact no.7 (PROBIOTIC-10 ORAL) Take by mouth once daily. ascorbic acid, vitamin C, (VITAMIN C) 500 mg tablet Take 500 mg by mouth once daily. COQ10, UBIQUINOL, ORAL Take 200 mg by mouth once daily. Menotropins (MENOPUR) 75 unit solr Inject 75 Units subcutaneously once daily. 5 Each 3 Follitropin Beta (FOLLISTIM AQ) 900 unit/1.08 mL Inject 350 Units subcutaneously once daily. 2 Each 3 Ganirelix Acetate 250 mcg/0.5 mL Inject 1 syringe daily subcutaneous before 8am. 4 Each 3 Follitropin Kevin 900/1.5 unit/mL pnij Inject 350 Units subcutaneously once daily. Inject 200 Units subcutaneously once daily 1 Each 3 chorionic gonadotropin (PREGNYL) 10,000 unit solr 10,000 Units once daily. 10,000 Units as directed. Inject 10,000 units for HCG trigger 1 Each 1 No current facility-administered medications for this visit. ALLERGIES Allergen Reactions Amoxicillin Rash Latex Swelling REVIEW OF SYSTEMS General: No weight loss, malaise or fevers. Neuro: No seizures or unexplained loss of consciousness. Headaches-resolved 6 months ago Respiratory: Asthma-during childhood. Has resolved-used steroids and inhaler during childhood. Cardiovascular: No history of HTN requiring medication, no history of angina, CHF, DE, cardiac surgery or stents. Denies rest pain, gangrene or revascularization/amputation for PVD. No history of cardiovascular symptoms or problems. GI: No history of GI symptoms or problems. No history of esophageal varices, recent ascites, or ETOH greater than 2 drinks per day. : No history of UTI in past 6 weeks. No history of renal failure. Not currently on or requiring dialysis. No history of symptoms or problems. ACCOUNTING COORDINATOR: No vaginal bleeding due to menopause and no abnormal vaginal discharge., LMP: 03/29/23 Endocrine: No history of diabetes. Has not taken steroids within the past 30 days. No history of endocrinological symptoms or problems. Hematology: No history of bleeding or clotting disorder. No history of hematological symptoms or problems. Oncology: No history of CA metastasis, chemo within 30 days, or radiotherapy within 90 days. No history of oncological symptoms or problems. Psych: Anxiety Skin: Negative for lesions, rash, and itching. PHYSICAL EXAM VITALS: BP 122/73 Pulse 95 Ht 5' 5.984" (1.68m) Wt 119 lb 0.8 oz (54.0kg) SpO2 100% LMP 03/29/2023 BMI 19.22 kg/(m^2). General: Alert and oriented, Healthy appearance Skin: Normal color, no rash, no lesions. HEENT: Neck WNL, No carotid bruits Cardiovascular: Normal S1 & S2, no rubs, murmurs or gallops. No JVD. Pulse regular. Lungs: Normal breath sounds, no wheezes or crackles. Abdomen: Soft, non-tender, no rigidity. Extremities: No deformity, no edema or tenderness, no joint swelling or clubbing. Neurological: Normal cognition and motor skills. Pulses: Carotid and radial pulses normal +2. ASSESSMENT Ms. Gutierrez is a 32 year old female referred to me for preoperative evaluation. Patient has the following medical comorbidities which might affect the perioperative course: There is no known pertinent medical condition which may affect ravi-operative course The patient is scheduled for a intermediate-risk procedure. Diagnostic tests reviewed for today's visit: No new labs PLAN/RECOMMENDATIONS To continue with IVF Patient is optimally prepared for surgery. Patient Instructions: As per patient instructions section. I have discussed the above recommendations with the patient in detail, in niels and lay terms, and provided a written summary of instructions as needed. We have discussed that no surgery is without risk, but that the goal of preoperative assessment is to optimize that risk, and that was clearly understood by the patient. I have given ample opportunity for the patient to ask questions, and answered all questions to their stated satisfaction. SIGNATURE: Rachael Bhatt APRN.CNP PATIENT NAME: Dona Gutierrez DATE: April 04, 2023 TIME: 7:45 AM documented in this encounter [facility] 04-04-2023 History of Present illness Narrative HISTORY AND PHYSICAL EXAMINATION GYNECOLOGY SERVICE DATE: 04/04/2023 SERVICE TIME: 7:45 AM PRIMARY CARE PHYSICIAN: Dr. Centeno in [place], [place] CHIEF COMPLAINT/HISTORY OF PRESENT ILLNESS: Ms. Gutierrez is a 32 year old female referred to me for preoperative evaluation. My final recommendations will be communicated back to the requesting physician/surgeon by the way of the shared medical record. Referring Surgeon: Dr. 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 Pritchard's consult note 10/24/2022* Refer to Assessment section for details of any comorbidities. Patient is Able to Perform the Following Physical Activity: Walks two miles daily -denies SOB during activity Significant Anesthesia Considerations: None. PAST MEDICAL/SURGICAL/FAMILY/SOCIAL HISTORY PAST MEDICAL HISTORY Diagnosis Date Childhood asthma *H/O traumatic brain injury in September 2020. Incident happened in the -hit her head on a cabinet. MRI w/wo contrast showed capillary telangiectasias-no concerns for bleeding. Had headaches after-resolved. Resolved with going to concussion physical therapy. PAST SURGICAL HISTORY Procedure Laterality Date APPENDECTOMY 1992 EXTRACTION ERUPTED TOOTH/EXR 2014 FAMILY HISTORY Problem Relation Age of Onset Prostate Cancer Father Hypertension Mother Hyperlipidemia Mother other (type II diabetes) Mother Anxiety disorder Mother Post-Traumatic Stress Disorder Mother Other Sleep Disorder Brother Hypertension Brother Drug abuse Sister No Known Problems Sister Colon Cancer Maternal Grandfather other (uncontrolled diabetes) Maternal Grandmother other (myocardial infarction) Maternal Grandmother Prostate Cancer Paternal Grandfather Hypertension Paternal Grandfather Glaucoma Paternal Grandfather Breast Cancer Paternal Grandmother other (atrial fibrillation) Paternal Grandmother Breast Cancer Maternal Aunt Diagnosed at age 51 other (non hodgkins lymphoma) Maternal Aunt SOCIAL HISTORY Social History Tobacco Use Smoking status: Never Smokeless tobacco: Never Substance Use Topics Alcohol use: Not Currently Comment: very occasional Drug use: Never MEDICATIONS/ALLERGIES Current Outpatient Medications Medication Sig Dispense Refill nutritional supplement/fiber (JUICE PLUS FIBRE ORAL) Take by mouth once daily. fish oil/borage/flax/om3,6,9 1 (OMEGA 3-6-9 ORAL) Take by mouth once daily. Lactobac no.41/Bifidobact no.7 (PROBIOTIC-10 ORAL) Take by mouth once daily. ascorbic acid, vitamin C, (VITAMIN C) 500 mg tablet Take 500 mg by mouth once daily. COQ10, UBIQUINOL, ORAL Take 200 mg by mouth once daily. Menotropins (MENOPUR) 75 unit solr Inject 75 Units subcutaneously once daily. 5 Each 3 Follitropin Beta (FOLLISTIM AQ) 900 unit/1.08 mL Inject 350 Units subcutaneously once daily. 2 Each 3 Ganirelix Acetate 250 mcg/0.5 mL Inject 1 syringe daily subcutaneous before 8am. 4 Each 3 Follitropin Kevin 900/1.5 unit/mL pnij Inject 350 Units subcutaneously once daily. Inject 200 Units subcutaneously once daily 1 Each 3 chorionic gonadotropin (PREGNYL) 10,000 unit solr 10,000 Units once daily. 10,000 Units as directed. Inject 10,000 units for HCG trigger 1 Each 1 No current facility-administered medications for this visit. ALLERGIES Allergen Reactions Amoxicillin Rash Latex Swelling REVIEW OF SYSTEMS General: No weight loss, malaise or fevers. Neuro: No seizures or unexplained loss of consciousness. Headaches-resolved 6 months ago Respiratory: Asthma-during childhood. Has resolved-used steroids and inhaler during childhood. Cardiovascular: No history of HTN requiring medication, no history of angina, CHF, DE, cardiac surgery or stents. Denies rest pain, gangrene or revascularization/amputation for PVD. No history of cardiovascular symptoms or problems. GI: No history of GI symptoms or problems. No history of esophageal varices, recent ascites, or ETOH greater than 2 drinks per day. : No history of UTI in past 6 weeks. No history of renal failure. Not currently on or requiring dialysis. No history of symptoms or problems. ACCOUNTING COORDINATOR: No vaginal bleeding due to menopause and no abnormal vaginal discharge., LMP: 03/29/23 Endocrine: No history of diabetes. Has not taken steroids within the past 30 days. No history of endocrinological symptoms or problems. Hematology: No history of bleeding or clotting disorder. No history of hematological symptoms or problems. Oncology: No history of CA metastasis, chemo within 30 days, or radiotherapy within 90 days. No history of oncological symptoms or problems. Psych: Anxiety Skin: Negative for lesions, rash, and itching. PHYSICAL EXAM VITALS: BP 122/73 Pulse 95 Ht 5' 5.984" (1.68m) Wt 119 lb 0.8 oz (54.0kg) SpO2 100% LMP 03/29/2023 BMI 19.22 kg/(m^2). General: Alert and oriented, Healthy appearance Skin: Normal color, no rash, no lesions. HEENT: Neck WNL, No carotid bruits Cardiovascular: Normal S1 & S2, no rubs, murmurs or gallops. No JVD. Pulse regular. Lungs: Normal breath sounds, no wheezes or crackles. Abdomen: Soft, non-tender, no rigidity. Extremities: No deformity, no edema or tenderness, no joint swelling or clubbing. Neurological: Normal cognition and motor skills. Pulses: Carotid and radial pulses normal +2. ASSESSMENT Ms. Gutierrez is a 32 year old female referred to me for preoperative evaluation. Patient has the following medical comorbidities which might affect the perioperative course: There is no known pertinent medical condition which may affect ravi-operative course The patient is scheduled for a intermediate-risk procedure. Diagnostic tests reviewed for today's visit: No new labs PLAN/RECOMMENDATIONS To continue with IVF Patient is optimally prepared for surgery. Patient Instructions: As per patient instructions section. I have discussed the above recommendations with the patient in detail, in niels and lay terms, and provided a written summary of instructions as needed. We have discussed that no surgery is without risk, but that the goal of preoperative assessment is to optimize that risk, and that was clearly understood by the patient. I have given ample opportunity for the patient to ask questions, and answered all questions to their stated satisfaction. SIGNATURE: Racheal Bhatt APRN.CNP PATIENT NAME: Dona Gutierrez DATE: April 04, 2023 TIME: 7:45 AM documented in this encounter [facility] 04-04-2023 History of Present illness Narrative The patient is here today for follicular ultrasound and blood work. The patient reports no problems or complaints. Ultrasound and blood will be reviewed by the physician, the flow sheet will be updated and instructions will be communicated to the patient. Pt to meet with MARKETING ASSISTANT for H&P. Met with pt. Questions answered and reviewed medication that pt has. Karla Aviles RN Called pt by listed phone number. Reviewed IVF plan and sent by Memam[facility], per cycle flowsheet. Patient to return to office 04/07/23. Pt verbalized understanding. Karla Aviles RN April 04, 2023 3:17 PM documented in this encounter [facility] 03-28-2023 History of Present illness Narrative The patient is here today for follicular ultrasound and blood work. The patient reports no problems or complaints. Ultrasound and blood will be reviewed by the physician, the flow sheet will be updated and instructions will be communicated to the patient. Met with pt and . IVF and embryo freezing consents signed and placed to be scanned. Reviewed potential timeline and antagonist protocol. [id number], Menopur and Cetrotide. Karla Aviles RN Called pt by listed phone number. Reviewed IVF plan and sent by Memampt, per cycle flowsheet. Patient to return to office 04/04/23. Pt verbalized understanding. Karla Aviles RN March 28, 2023 3:03 PM documented in this encounter [facility] 03-03-2023 Miscellaneous Notes Pts pharmacy calling in regards to pts gonnel f ,needing clarification about the directions and the hcg medication questions documented in this encounter [facility] 02-28-2023 Miscellaneous Notes Called pt and reviewed how to take her OCPs. Pt verbalizes understanding. Karla Aviles RN February 28, 2023 8:30 AM patient charted her plan and is unsure if she take the medication tonight. Also have questions abt the medication Also needs to know if she got in touch with the provider office to schedule surgery dr delacruz documented in this encounter [facility] 02-24-2023 Miscellaneous Notes Called pt by listed phone number. Reviewed OCP instructions. Reviewed potential timeline. Pt verbalizes understanding. Karla Aviles RN February 24, 2023 4:50 PM Pt needs to start meds sneha speaking with Nurse Karla documented in this encounter [facility] 02-24-2023 Miscellaneous Notes Called pt by listed phone number and reviewed potential timeline for retrieval and fresh TESE. PReviously discussed a few dates. Message sent to Dr Anne to confirm TESE week. Karla Aviles RN February 24, 2023 4:46 PM Received voice mail re surgery date originally retrieval and tese week of Apr 10 but patient states it is scheduled for the week of Apr 24 and it does not match up with her cycle. Please call patient it was discussed it was going to be the week of the , please call patient. documented in this encounter [facility] 02-23-2023 Miscellaneous Notes Signing off medication orders-patient has allergy to Latex. Called the patient and she said her only issue with latex is perineal swelling when using latex condoms. 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 Notified patient to let us know if she has any swelling or irritation with using the ganirelix-can easily switch over to cetrotide if she does develop any issues. Racheal Bhatt APRN.CNP February 23, 2023 10:09 AM Called pt by listed phone number, no answer and left VM. Verified pt has baseline spot held and spot held for fresh TESE week of 04/24. Instructed pt to start OCPs with the end of March period. Call to schedule baseline. New medications ordered to [facility] specialty pharmacy as requested. Pt reminded to keep up with annual OBGYN appointment. Karla Aviles RN February 22, 2023 3:21 PM Dylan Allison, I have spoken with the patient also answered her questions. Thank you Pt wants to know how much she will owe after ins covers Pt was able to get able to get apt with Dr Cantu and orin on bc pills documented in this encounter [facility] 12-21-2022 Miscellaneous Notes Received CellPly message from pt. Attempted to call pt to address, no answer and left message. Informed pt received her sent records. Husbands STDS missing GC/Chl, will place order with [facility] Will take WW within last year now, schedule when next one if due but must have PAP & HPV within 5 years. 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 This requires a genetic consult appointment. Will place orders. Please call back with questions. Karla Aviles RN December 21, 2022 3:42 PM documented in this encounter [facility] 12-19-2022 Miscellaneous Notes Called pt by listed phone number. Checklist updated. Reviewed with pt what is still needed. Pt to send outside records. is scheduled with Dr Anne for a consult before starting IVF. To follow up with office after consult in January. Karla Aviles RN December 19, 2022 3:48 PM Dylan Van Please clarify, per your notes he needs to see urologist. This should be direct to PFA team. needs to [facility], his sperm was sent from [facility] and Dr. Baker requested patient he meet with urologist, there may be only a few sperm in sample from [facility]. may need another surgery with [facility]. His name is Benedict Gutierrez [facility] 1990, please follow up with patient. [place] had referred patient inquiring if [place] can be billed for services. Patient is having records faxed to Karla. Patient inquiring about having surgery the day of her retrieval. documented in this encounter [facility] 12-07-2022 History of Present illness Narrative Patient had an IVF consult with Lalit Pritchard MD. Present for the phone call today is patient and partner/. Identified patient by name and date of . Yes. Chief Complaint- IVF Nurse Teach Medications and allergies reviewed and updated. Yes. History reviewed: OB, Medical, Surgical, and Substance & Sexuality- Yes. Pre IVF requirements reviewed- Yes. Pre IVF requirements sent to the patient via Neituihart- Yes Patient reminded to call us with start of periods- Yes Previous Fertility Treatment? - No. Started care at [facility] G 0P 0 AB 0 LMP 11/24/22, Cycles- 28 days Episode created- yes / Protocol- Antagonist Will monitor at [place] [facility] yearly exam/PAP - Need Uterine Eval - Need before transfer Mammo needed (42yo) - n/a [facility]- Complted 05/03/22 Pt. Labs: Type & Screen, HIV 1&2, Syphilis (RPR), Hepatitis B Core AB, Hepatitis B Surface AG, Hepatitis C AB, GC/Chlam - Need Myriad carrier screening - Completed Partner STD: HIV 1&2, Syphilis (RPR) Hepatitis B Core AB, Hepatitis B Surface AG, GC/Chlam - Need SA/Freeze Backup - TESE sperm to be delivered to [facility] PGTA/M - yes Financial/Coverage- yes Pharmacy- Reunite-n/a Psych Consult- n/a Donor Sperm- n/a IVF / Embryo - Nursing reviewed with patient and Sent via Neituihart Is there anything special we should know about your medical history: Any artificial parts, pins, limbs, lines, drains, ports, implants, prosthetics- Patient Declines Medical problems- Patient Declines Diabetes- Patient Declines / Sleep apnea- Patient Declines / CPAP machine-no Blood clots or history of hematology issues- Patient Declines Any Latex allergies Yes. control use in past? Yes. Any contraindications? History of chest pain with OCPs when on them with higher doses of estrace. / migraines history but resolved. smoking No / blood clots No RN Discussed: Nursing reviewed with patient all below Vacations and Traveling / Covid-19 / Weekend monitoring and retrieval / Time-off work MyChart use with plans, instructions results, appts. No jumping, bouncing, heavy lifting, or high impact activity during IVF cycle. Risk of ovarian torsion. No Motrin, Advil, Ibuprofen, etc. Tylenol or Acetaminophen only. Team approach of doctors and nurses. Stimulation can go 10-14 days. IVF appointments in the morning, called monitoring, which consist of ultrasound and bloodwork. Noon meeting with MD to discuss results/POC. Nurse call patient in afternoon with plan and send MyChart, schedule next appt. will be available and with patient before and after surgery. To Do 1.Consents 2.Need uterine eval before FET 3.Pt needs STDS 4.Partner need STDS and myriad 5. TESE sperm transferred to [facility]-in process and will confirm 6. Need WW and pap records Karla Aviles RN December 07, 2022 9:57 AM documented in this encounter [facility] 12-05-2022 History of Present illness Narrative Images from the original note were not included. [id number] Dona Gutierrez 12/05/2022 REFERRING/PRIMARY PROVIDER(S) -Referring Provider for today's consult: Erik Cheng MD -Primary Care Provider: No primary care provider on file. HISTORY OF PRESENT ILLNESS Dona Gutierrez is a premenopausal 32 y.o. White female who presents to the [facility] for risk assessment and to establish care. I have reviewed her electronic medical records in detail and updated in the chart and my note as below. Chief Complaint Patient presents with New Patient HRB evaluation. Hx left breast lump w/ negative uls in 2020. Family hx breast cancer in paternal grandmother w/ 3 recurrences she was originally diagnosed around age 50 and passed this year at 85yo. Paternal grandfather and father both w/ prostate cancer. Maternal aunt w/ hx breast cancer and non-hodgkins lymphoma around age 40-50. She is planning on starting IVF in near future, w/ Dr. Koenig in [facility]. She has a family history of breast cancer in her paternal grandmother at 50yrs, with 3 recurrences and a maternal aunt at 51 yrs. She denies any current or new breast concerns, including lumps, skin changes, nipple changes/discharge or pain. She reports that she examines her breasts occasionally. PERSONAL BREAST & ACCOUNTING COORDINATOR HISTORY Breast biopsy: No Breast cysts: Yes Left 5:00 on 2020 Breast surgery: No Chemoprevention: No Intact uterus and ovaries: Yes Contraception: None currently; attempting - pursuing IVF SCREENING & HEALTH MAINTENANCE Colonoscopy: never Skin cancer screening: Not regularly Eye exams: Not regularly Dental exams: Twice annually BMD: never Vitamin D deficiency: None known ACCOUNTING COORDINATOR exams: regularly RISK FACTORS FOR BREAST CANCER Social History Social History Narrative ACCOUNTING COORDINATOR: No LMP recorded.. Last PAP: 2021 Para: 0 Age at of first child: na Age of menarche: 16 Age of menopause: na Patient denies hormonal therapy at this time. BREAST (GENERAL): Patient denies self-breast exams. Date of patient's first mammogram: na Date of most recent mammogram: na Bra/Cup Size: 30B-C BREAST(HISTORICAL BIOPSY/THERAPY/TREATMENT) Patient denies previous breast biopsy(s). Patient denies being told they personally have breast cancer or a breast malignancy. Patient denies chemotherapy, hormone therapy or radiation therapy during the last month. She Breast fed NA Hx of infertility medications use: no , but pursuing this soon Hx of chest Irradiation/mantle : no Postmenopausal obesity: NA Body mass index is 18.88 kg/m . Mammographic density: Personal History of Benign Atypical Breast Biopsy: no Social History Tobacco Use Smoking status: Never Passive exposure: Past Smokeless tobacco: Never Substance Use Topics Alcohol use: Not Currently Drug use: Never GENETICS Ashkenazi Ancestry: No Genetic counseling: Yes She did carrier screening Genetic Testing: Yes Carrier screening - no cancer genetics Genes tested: Family Members with Genetic Testing: No FAMILY HISTORY Family History Problem Relation Age of Onset Prostate Cancer Father Breast Cancer Maternal Aunt Breast Cancer Paternal Grandmother Prostate Cancer Paternal Grandfather No of sisters: 2 paternal half sister No of maternal aunts: 1 half No of paternal aunts: 2 No of daughters: 0 Family history of breast cancer: yes Paternal grandmother at 50yrs, with 3 recurrences; mets to lung and brain; Maternal aunt at 51yrs (also had NHL and thyroid ca); alive Family history of ovarian cancer: no Other relevant Cancers as below: yes Prostate ca in her father at 48yrs; alive; was an aggressive form Prostate ca in her paternal grandfather; alive Skin ca in multiple family members - non melanoma Colon ca in maternal grandfather; - There is no family history of uterine, pancreatic, gastric, brain, renal cell or thyroid cancer. - There is no family history of melanoma, sarcoma or leukemia. REVIEW OF SYSTEMS The patient specifically denies unintentional weight loss, chest pain, shortness of breath, cough, or severe headaches. PAST MEDICAL HISTORY No past medical history on file. PAST SURGICAL HISTORY No past surgical history on file. MEDICATIONS Current Outpatient Medications Medication Sig Ascorbic acid 500 MG tablet Take 1 tablet by mouth daily. Coenzyme Q10 (COQ10 PO) Take by mouth. Nutritional Supplements (Juice Plus Fibre) Liquid Take by mouth. omega-3 acid ethyl esters 1 g capsule Take 2 capsules by mouth 2 times daily. Probiotic Product (PROBIOTIC ADVANCED PO) Take by mouth. ALLERGIES Allergies Allergen Reactions Latex Swelling Robamox [Amoxicillin] Rash PHYSICAL EXAMINATION VITAL SIGNS: BP 128/77 Pulse 77 Temp 97.9 F (36.6 C) Ht 1.676 m (5' 6") Wt 53.1 kg (117 lb) BMI 18.88 kg/m Smoking Status Never GENERAL: Well nourished, well developed female. No acute distress. HEENT: Head: Normocephalic and atraumatic. Neck: Supple, no thyromegaly. BREAST/CHEST WALL & REGIONAL LYMPH NODES The breasts are symmetrical in appearance without visible skin or nipple changes. Right Breast: The patient has no discrete, concerning, palpable right breast masses. Left Breast: The patient has no discrete, concerning, palpable left breast masses. There are no suspicious nipple abnormalities, nipple discharge or suspicious skin changes of her breast skin bilaterally. The axillary tails are normal. No chest wall abnormalities. The patient has no cervical, supraclavicular or axillary adenopathy bilaterally. SKIN: Skin is warm and dry. She is not diaphoretic. PSYCH: Appropiate mood and affect for her clinical situation. RISK CALCULATION Her risk was calculated on 12/05/22 using these models below: Katiuska model score: 5 year risk: NA Lifetime risk: NA EMERY score: version 8: 10 year risk: 1.2% Lifetime risk: 23.6% IMAGING No imaging today. IMPRESSION/PLAN IMPRESSION: Dona Gutierrez is a 32 y.o. female with FH of breast cancer. There is no evidence of malignancy. The patient was reassured as to the benign nature of her clinical exam and imaging. PLAN: Recommendations: At this time I recommend she return for annual clinical breast exams. When she is 42yrs we will reassess her EMERY, but likely initiate annual mammogram and MRI at 42yrs. She understands that if her GT results do show a pathogenic variant, these recommendations may change. Genetics: We discussed the option of meeting with a genetic counselor for risk assessment and testing recommendations. She is interested in this. I placed this referral today. Chemoprevention discussion: She does not currently meet criteria for this intervention with age <35yrs. Lifestyle changes: The patient was given information in her AVS regarding health promotion and lifestyle recommendations for breast health. Follow up: Return for genetics SNEHA; 1 yr HR return with Eileen. She was encouraged on SBA and to reach out with any new breast concerns. Patient offered a medical legal archivist for sensitive exam. Patient declined legal archivist. documented in this encounter [facility] 12-05-2022 Instructions MARCOS Laura - 12/05/2022 10:00 AM EDT Health Promotion/Lifestyle Recommendations for Breast Health Self Breast Awareness: We do recommend that you continue to perform monthly breast self-exams. If you are menstruating, we would recommend after your cycle has completed. If you are post-menopausal, we recommend that you pick a day of the month to do your monthly exam. If you do not have breasts, it is important to examine your skin, chest wall, and underarms for any new masses or skin lesions. If you find any areas of concern, please call us to discuss or be seen. Nutrition: Below are some guidelines for health lifestyle that we recommend. Adopt a plant based diet. Aim to make a majority of your foods (2/3 of your diet) from plant based sources. This includes, fruits, vegetables, whole grains, nuts, legumes, beans, and seeds. Try to get in a rainbow of fruits/vegetables each day to maximize your health benefits. Strive for weight management Choose healthy fats in moderation Good rule of thumb is 20% of total calories from fat. Focus should be on choosing the right fats Eat more monounsaturated fats (olive/canola oil, nuts, avocado) and omega-3 polyunsaturated fats (cold-water fish, walnuts). Limit saturated fats (animal fats, butter, dairy). Avoid trans fats (partially hydrogenated vegetable oil, commercial baked goods). Eat in moderation - omega-6 polyunsaturated fats (vegetable oils) Maintain good control of blood sugars. Avoid simple carbohydrates which make your blood sugar rise high and quickly. (the "whites": Breads, pasta, rice, potatoes, candy and sweets, table sugar, soda, juice). Choose complex carbohydrates which provide a gradual release of sugar and energy (whole grains, whole fruits, sweet potatoes, corn, peas, winter squash). Include a healthy protein when consuming carbohydrates to help further control blood sugar levels, decrease fatigue and help to feel full longer (lean meats, fish, skinless poultry, nuts and nut butters (i.e. Peanut butter), beans and cisneros dip (i.e. hummus) Soy: Moderate intake of whole soy foods as part of an overall healthy diet has not shown a risk for breast cancer. Choosing soy, up to 2-3 servings of whole soy foods/day as prat of a plant-based dietary pattern is reasonable. However, the safety of concentrated soy in the form of soy protein powders, soy protein isolates, or soy supplements is unknown and we recommend you avoid these at this time. Weight Management: Weight management is important for your overall health as well as for breast health. To help you reach weight management goals we have many resources including a registered dietitian and physical therapy department who will develop a plan to help you reach your goals. Alcohol Consumption: We recommend that you drink alcohol in moderation, if at all. You should limit alcohol consumption to no more than one alcoholic drink per day. Smoking: If you are currently a smoker, we recommend that you stop smoking. There is evidence that smoking increases the risk of breast cancer recurrence. Please speak to your health care providers regarding this as there are many programs offered here at the [facility] for assistance with smoking cessation. Exercise: Studies have shown that 30 minutes of exercise 3-5 times/week can have positive benefits. Exercise also promotes heart health and overall wellness. Recommended exercise prescription should include the following: Frequency: 5 days per week Duration: 30 minutes minimum per day Moderate intensity: Examples include brisk walked (treadmill speed of 2.9-3.2mph), vigorous housework or dancing Always be able to carry on a conversation while you exercise Vary your activity to reduce overuse injuries to muscles and joints to increase your enjoyment level documented in this encounter [facility] 11-15-2022 Miscellaneous Notes IVF #1 CLEARED - Auth and referral# [id number]. Pt approved for IVF with ICSI, asst hatching, cryo and storage. DOS are 11/29/22 - 03/01/23 Next steps for ivf referral [id number] placed. Patient states she has coverage. Please call patient. documented in this encounter [facility] 10-27-2022 Miscellaneous Notes LMOVM and sent mychart for pt to call back in regards to her questions with filling out the medical release form. Pt has ques on medical release form IVF#1 NOT CLEARED CALLED PT TO DISCUSS IVF FC AND [employer] IVF BENEFITS- SHE STATED THAT THEY HAVE HAD [facility] AND SEMEN ANALYSIS DONE ALREADY, THEY ARE WITH [facility]- HAS CHOSEN TO GO WITH [facility] WHSarah HAYDEE- SHE STATED THAT THEY ALSO HAVE OPEN APPROVED CASE WITH [employer] ADVISED TO CLOSE THAT REQUEST SO IT WILL NOT COUNT AGAINST THEY CYCLES USED, WILL SEND MYCHART FORM FOR MEDICAL RELEASE AND WILL HAVE [facility] REACH OUT REACH OUT TO HER FOR SPOUSE SAMPLES TRANSFER PROCESS ADVISED ONCE RECEIVED AND CLINICALS ARE COMPLETED BY DR PRITCHARD WILL SUBMIT PA AND TO ALLOW AT LEAST 15 DYS FOR PA Pt send MC that she would like to move forward with IVF. Need clearance She Bermudez RN October 25, 2022 11:41 AM documented in this encounter [facility] 10-24-2022 Consult note Formatting of th is note is different from the original. VIRTUAL VISIT PROGRESS NOTE This is a virtual visit using Fridge video visit. It required patient-provider interaction for the medical decision making as documented below. Date of Consult: 10/24/2022 Consultation Requested By: Self-refered Dona Gutierrez is a 32 year old female presenting with the following history: HISTORY OF PRESENT ILLNESS: Dona Gutierrez is a 32 year old female Attempting to conceive since 04/2021 RGI SA: Azospermia X2 Spear: TESE Sperm Menstrual cycle irregularity: PMHx: PSHx: OBHx: Meds: MVI Desire for future fertility 35 year old male partner without proven fertility PMHx: Denies PSHx: Denies Meds: Denies SA: Not completed to date Obstetric History No data available Fertility Evaluations and Treatments: Eval Checklist Results Date Comments HSG Hysteroscopy Laparoscopy OPK (Ovulation Predictor Kit) Ovarian Grovespring Saline Ultrasound Semen Analysis Ultrasound Other (See comments) MENSTRUAL HISTORY: Menarche Age: Length of Cycle: Days: Menstrual Flow: Menstrual Symptoms: No LMP recorded. No past medical history on file. No past surgical history on file. No family history on file. ETHNICITY: OCCUPATION/EXERCISE: Occupation: Exercise: Partner Information No data filed MEDICATIONS: No current outpatient medications on file prior to visit. No current facility-administered medications on file prior to visit. ALLERGIES: Patient has no allergy information on record. ASSESSMENT: 32 year old female Attempting to conceive since 04/2021 RGI SA: Azospermia X2 Spear: TESE Sperm Menstrual cycle irregularity: PMHx: PSHx: OBHx: Meds: MVI Desire for future fertility 35 year old male partner without proven fertility PMHx: Denies PSHx: Denies Meds: Denies SA: Not completed to date PLAN: IVF cycle planning: Antagonist. FSH 350. Menopur 75. Dual trigger STI/FDA infectious disease screening tests Carrier screening Office hysteroscopy prior to FET Financial Team: Discuss medical insurance benefits and likely lif-ud-alkcjt costs of IVF. IVF nurse coordinator: Schedule IVF nurse teaching. Order meds. Prepare IVF cycle schedule/flowsheet. Sign consents. Dr Pritchard: Review lab test results. Determine IVF stimulation protocol and medications dosage. Consultation with couple prior to IVF start if questions, abnormal lab test values or other concerns arise. I spent a total of 60 minutes on the date of the service which included preparing to see the patient, [id number] patient care, completing clinical documentation, obtaining and/or reviewing separately obtained history, counseling and educating the patient/family/caregiver, ordering medications, tests, or procedures, communicating with other HCPs (not separately reported), independently interpreting results (not separately reported), and communicating results to the patient/family/caregiver. 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 infertility of other specified origin Patient desires Unspecified procreative management Encounter for fertility planning Other specified procreative management [facility] Diagnosis Fibrocystic breast changes, bilateral- Primary Family history of breast cancer Family history of malignant neoplasm of breast Family history of prostate cancer Family history of malignant neoplasm of prostate At high risk for breast cancer [facility]- [facility] Diagnosis Female infertility- Primary Female infertility of unspecified origin Encounter of female for testing for genetic disease carrier status for procreative management Testing of female for genetic disease carrier status [facility] Diagnosis Female infertility- Primary Female infertility of unspecified origin [facility] Diagnosis Preop examination- Primary Preoperative examination, unspecified Encounter for male factor infertility in female patient Female infertility of other specified origin [facility] Diagnosis Female infertility Female infertility of unspecified origin [facility] Diagnosis Female infertility- Primary Female infertility of unspecified origin Procreative management Unspecified procreative management [facility] Diagnosis Female infertility Female infertility of unspecified origin [facility]* Diagnosis Female infertility Female infertility of unspecified origin Encounter for fertility preservation procedure [facility]* Diagnosis Primary female infertility- Primary Female infertility of unspecified origin [facility]* Diagnosis Female infertility Female infertility of unspecified origin [facility]* Diagnosis Female infertility Female infertility of unspecified origin [facility]* Diagnosis Female infertility- Primary Female infertility of unspecified origin [facility]* Diagnosis Pre-procedural laboratory examination- Primary Female infertility Female infertility of unspecified origin [facility]* Diagnosis Female infertility- Primary Female infertility of unspecified origin [facility]* Diagnosis Family history of breast cancer- Primary Family history of malignant neoplasm of breast [facility] Diagnosis Female infertility- Primary Female infertility of unspecified origin [facility]* Diagnosis examination or test, unconfirmed- Primary Infertility, female Female infertility of unspecified origin [facility]* Diagnosis H/O penicillin-type antibiotic allergy- Primary Personal history of allergy to penicillin [facility]* Diagnosis No-show for appointment- Primary documented [facility]* Diagnosis Female infertility- Primary Female infertility of unspecified origin Fertility testing [facility]* Diagnosis Female infertility- Primary Female infertility of unspecified origin Encounter for fertility testing Fertility testing [facility]* Diagnosis with uncertain dates, antepartum- Primary state, incidental Screening for cervical cancer Screening for malignant neoplasm of the cervix Screening for human papillomavirus (HPV) Special screening examination for human papillomavirus (HPV) History of asthma Personal history of other diseases of respiratory system History of posttraumatic stress disorder (PTSD) ERICK (generalized anxiety disorder) Generalized anxiety disorder History of concussion Personal history of traumatic brain injury Family history of congenital heart defect Family history of congenital anomalies Encounter for supervision of normal first in first trimester Supervision of normal first Spotting during Spotting complicating , unspecified as to episode of care or not applicable History of infertility Personal history of other genital system and obstetric disorders [facility] Diagnosis 9 weeks gestation of - Primary state, incidental Family history of congenital heart defect Family history of congenital anomalies [facility] Diagnosis Urinary frequency- Primary Cloudy urine Other nonspecific finding on examination of urine [facility] Diagnosis Encounter for (NT) nuchal translucency scan- Primary Other specified screening with uncertain dates, antepartum state, incidental Encounter for routine screening for malformation using ultrasonics [facility] Diagnosis Encounter for supervision of normal first in first trimester- Primary Supervision of normal first 12 weeks gestation of state, incidental with uncertain dates, antepartum state, incidental History of posttraumatic stress disorder (PTSD) History of asthma Personal history of other diseases of respiratory system ERICK (generalized anxiety disorder) Generalized anxiety disorder [facility] Diagnosis Encounter for supervision of normal first in second trimester- Primary Supervision of normal first 17 weeks gestation of state, incidental History of posttraumatic stress disorder (PTSD) ERICK (generalized anxiety disorder) Generalized anxiety disorder Family history of congenital heart defect Family history of congenital anomalies Rh negative state in antepartum period, first trimester History of asthma Personal history of other diseases of respiratory system [facility] Encounter for supervision of normal first in second trimester- Primary Supervision of normal first 20 weeks gestation of state, incidental History of posttraumatic stress disorder (PTSD) ERICK (generalized anxiety disorder) Generalized anxiety disorder Family history of congenital heart defect Family history of congenital anomalies Rh negative state in antepartum period, first trimester History of asthma Personal history of other diseases of respiratory system [facility] Diagnosis Encounter for anatomic survey- Primary 20 weeks gestation of state, incidental [facility] Diagnosis Maternal care for (suspected) abnormality and damage, unspecified, fetus 1 [O35.9XX1]- Primary [facility] Diagnosis Encounter for supervision of normal first in second trimester (HCC)- Primary Supervision of normal first History of posttraumatic stress disorder (PTSD) Rh negative state in antepartum period, first trimester ([facility]) ERICK (generalized anxiety disorder) Generalized anxiety disorder Family history of congenital heart defect Family history of congenital anomalies 24 weeks gestation of ([facility]) state, incidental Screening for diabetes mellitus [facility] Diagnosis Encounter for supervision of normal first in second trimester ([facility])- Primary Supervision of normal first 28 weeks gestation of ([facility]) state, incidental History of posttraumatic stress disorder (PTSD) Generalized anxiety disorder Family history of congenital heart defect Family history of congenital anomalies Rh negative state in antepartum period, first trimester ([facility]) History of asthma Personal history of other diseases of respiratory system Excessive weight gain in , third trimester ([facility]) 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 [facility]* Diagnosis Maternal care for (suspected) abnormality and damage, unspecified, fetus 1 ([facility])- Primary [facility]* Diagnosis Encounter for supervision of normal first in second trimester ([facility])- Primary Supervision of normal first History of posttraumatic stress disorder (PTSD) Family history of congenital heart defect Family history of congenital anomalies 30 weeks gestation of ([facility]) state, incidental PTSD (post-traumatic stress disorder) Posttraumatic stress disorder ERICK (generalized anxiety disorder) Generalized anxiety disorder Family history of hypothyroidism Family history of other endocrine and metabolic diseases [facility]* Diagnosis Encounter for screening for malformation using ultrasound ([facility])- Primary 30 weeks gestation of ([facility]) state, incidental [facility]* Diagnosis Encounter for supervision of normal first in third trimester ([facility])- Primary Supervision of normal first History of bowel resection 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 32 weeks gestation of (HCC) state, incidental 34 weeks gestation of ([facility])- Primary state, incidental Encounter for supervision of normal first in third trimester ([facility]) Supervision of normal first ERICK (generalized anxiety disorder) Generalized anxiety disorder History of bowel resection 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 [facility]* Diagnosis Encounter for supervision of normal first in third trimester ([facility])- Primary Supervision of normal first History of bowel resection 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 32 weeks gestation of ([facility]) state, incidental 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, antepartum, single or unspecified fetus ([facility])- Primary [facility]* Diagnosis Encounter for supervision of normal first in third trimester ([facility])- Primary Supervision of normal first History of bowel resection 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 32 weeks gestation of ([facility]) state, incidental Encounter for supervision of normal first in third trimester ([facility])- Primary Supervision of normal first 28 weeks gestation of ([facility]) state, incidental 36 weeks gestation of ([facility]) state, incidental Cavernoma Congenital vascular hamartomas History of intestinal surgery Other postprocedural status Encounter for supervision of normal first in first trimester ([facility]) Supervision of normal first [facility]* Diagnosis Encounter for supervision of normal first in third trimester ([facility])- Primary Supervision of normal first History of bowel resection 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 32 weeks gestation of ([facility]) state, incidental Supervision of high risk in third trimester ([facility])- Primary Unspecified high-risk 37 weeks gestation of ([facility]) state, incidental Positive GBS test Adverse effect of penicillamine, initial encounter * Assessment & Plan Note - Valerio Leon MD - 03/05/2025 4:16 PM EDT Associated Problem(s): Positive GBS test allergy testing, if not done [facility] Orders: URINE OB DIP B/O [facility]* Diagnosis Encounter for supervision of normal first in third trimester ([facility])- Primary Supervision of normal first History of bowel resection 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 32 weeks gestation of ([facility]) state, incidental Supervision of high risk in third trimester ([facility])- Primary Unspecified high-risk 37 weeks gestation of ([facility]) state, incidental Positive GBS test Adverse effect of penicillamine, initial encounter 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 [facility]* Diagnosis Encounter for supervision of normal first in third trimester ([facility])- Primary Supervision of normal first History of bowel resection 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 32 weeks gestation of ([facility]) state, incidental Supervision of high risk in third trimester ([facility])- Primary Unspecified high-risk 37 weeks gestation of ([facility]) state, incidental Positive GBS test Adverse effect of penicillamine, initial encounter Supervision of high risk in third trimester ([facility])- Primary Unspecified high-risk 38 weeks gestation of ([facility]) state, incidental Cavernoma Congenital vascular hamartomas Positive GBS test Family history of congenital heart defect Family history of congenital anomalies Penicillin allergy Personal history of allergy to penicillin Rh negative state in antepartum period, first trimester ([facility]) ERICK (generalized anxiety disorder) Generalized anxiety disorder PTSD (post-traumatic stress disorder) Posttraumatic stress disorder History of posttraumatic stress disorder (PTSD) [facility]* Diagnosis Encounter for supervision of normal first in third trimester ([facility])- Primary Supervision of normal first History of bowel resection 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 32 weeks gestation of ([facility]) state, incidental Supervision of high risk in third trimester ([facility])- Primary Unspecified high-risk 37 weeks gestation of ([facility]) state, incidental Positive GBS test Adverse effect of penicillamine, initial encounter 39 weeks gestation of ([facility])- Primary state, incidental Supervision of high risk in third trimester ([facility]) Unspecified high-risk Positive GBS test 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 Patient reports cleared by [facility] anesthesia and will confirm this is on patient's L&D chart. 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 32 weeks gestation of (HCC) state, incidental Supervision of high risk in third trimester (HCC)- Primary Unspecified high-risk 37 weeks gestation of (HCC) state, incidental Positive GBS test Adverse effect of penicillamine, initial encounter 39 weeks gestation of (HCC)- Primary state, incidental Supervision of high risk in third trimester (HCC) Unspecified high-risk Positive GBS test 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 documented in this encounter [facility] for referral (narrative)* Consultation (Routine) - New Request Specialty Diagnoses / Procedures Referred By Fish garcia Referred To Contact Genetics Diagnoses Family history of breast cancer Family history of prostate cancer Eileen House APRN-CNP [address] [place] [address] Referral ID Status Reason Start Date Expiration Date V isits Requested Visits Authorized [id number] New Request 12/05/2022 12/30/2023 1 1 [facility] for referral (narrative)* Diagnostic Procedure Only (Routine) - Authorized Specialty Diagnoses / Procedures Referred By Contac t Referred To Contact [facility] Diagnoses Female infertility Procedures FOLLICULAR US WHI US PELVIC NONOBSTETRIC [facility] Racheal Bhatt APRN.CNP [id number] [place] [address] [address] Referral ID Status Reason Start Date Expiration Date Visits Requested Visits Authorized [id number] Authorized Auto-Generat ed Referral 03/23/2023 09/03/2023 6 6 [facility] for referral (narrative)* Diagnostic Procedure Only (Routine) - Pending Review Specialty Diagnoses / Procedures Referred By Contac t Referred To Contact [facility] Diagnoses Female infertility Procedures FOLLICULAR US I US PELVIC NONOBSTETRIC IMAGE [facility]/F/U Lalit Pritchard MD [address] [place] [address] [address] Referral ID Status Reason Start Date Expiration Date Visits Requested Visits Authorized [id number] Pending Review Auto-Generat ed Referral 05/16/2023 05/15/2024 1 1 [facility] for referral (narrative)* Outpatient Procedure (Routine) - New Request Specialty Diagnoses / Procedures Referred By Contac t Referred To Contact [facility] Diagnoses Fertility testing Procedures OFFICE HYSTEROSCOPY HYSTEROSCOPY BX ENDOMETRIUM&/POLYPC W/WO D&C Brad Rodriguez MD [address] [place] [address] [facility] [address] [place] [address] Referral ID Status Reason Start Date Expiration Date Visits Requested Visits Authorized [id number] New Request Auto-Generat ed Referral 04/02/2024 04/02/2025 1 1 [facility] for referral (narrative)* Outpatient Procedure (Routine) - New Request Specialty Diagnoses / Procedures Referred By Contac t Referred To Contact [facility] Diagnoses Encounter for fertility testing Procedures OFFICE HYSTEROSCOPY HYSTEROSCOPY BX ENDOMETRIUM&/POLYPC W/WO D&C Racheal Bhatt APRN.CNP [address] [place] [address] [address] Referral ID Status Reason Start Date Expiration Date Visits Requested Visits Authorized [id number] New Request Auto-Generat ed Referral 04/23/2024 04/16/2025 1 1 [facility] for referral (narrative)* Diagnostic Procedure Only (Routine) - Pending Review Specialty Diagnoses / Procedures Referred By Contac t Referred To Contact [facility] Diagnoses with uncertain dates, antepartum Procedures NUCHAL TRANSLUCENCY WHI US NUCHAL TRANSLUCENCY 1ST GESTATION Zina Jensen APRN.CNM [address] [place] [address] [facility] [address] [place] [address] Referral ID Status Reason Start Date Expiration Date Visits Requested Visits Authorized [id number] Pending Review Auto-Generat ed Referral 08/12/2024 08/12/2025 1 1 * Diagnostic Procedure Only (Routine) - Pending Review Specialty Diagnoses / Procedures Referred By Contac t Referred To Contact [facility] [facility] Diagnoses with uncertain dates, antepartum Procedures OBSTETRIC ULTRASOUND WHI US PREG UTERUS AFTER 1ST TRIMEST GESTATION Zina Jensen APRN.CNM [address] [place] [address] [address] Referral ID Status Reason Start Date Expiration Date Visits Requested Visits Authorized [id number] Pending Review Auto-Generat ed Referral 08/12/2024 08/12/2025 1 1 [facility] for referral (narrative)* Outpatient Procedure (Routine) - New Request Specialty Diagnoses / Procedures Referred By Contac t Referred To Contact [facility] Diagnoses 9 weeks gestation of Family history of congenital heart defect Procedures ECHO Zina Jensen APRN.CNM [address] [place] [address] [address] Referral ID Status Reason Start Date Expiration Date Visits Requested Visits Authorized [id number] New Request Auto-Generat ed Referral 08/20/2025 1 1 [facility] for visit Narrative* Diagnostic Procedure Only (Routine) - Authorized Specialty Diagnoses / Procedures Referred By Contac t Referred To Contact [facility] Diagnoses Female infertility Procedures FOLLICULAR US WHI US PELVIC NONOBSTETRIC IMAGE DCMTN LIMITED/F/U Racheal Bhatt APRN.[employer]NAGER [employer] [address] [place] [id number] [address] [address] Referral ID Status Reason Start Date Expiration Date Visits Requested Visits Authorized [id number] Authorized Auto-Generat ed Referral 03/23/2023 09/03/2023 6 6 [facility] for visit Narrative* Diagnostic Procedure Only (Routine) - Closed Specialty Diagnoses / Procedures Referred By Contac t Referred To Contact [facility] Diagnoses Female infertility Procedures SONOHYSTEROGRAPHY (SIS) US WHI SALINE INFUS SONOHYSTEROGRAPHY W/COLOR DOPPLER Racheal Bhatt APRN.[employer]GER LIFE [id number] [place] [address] [facility] [address] [place] [address] Referral ID Status Reason Start Date Expiration Date V isits Requested Visits Authorized [id number] Closed Auto-Generate d Referral 04/28/2023 09/03/2023 1 1 [facility] Summary Purpose Family History No Family History Records FoundNo Family History Records FoundNo Family History Records FoundNo Family History Records Found Advance Directives No Advanced Directives Records FoundNo Advanced Directives Records FoundNo Advanced Directives Records FoundNo Advanced Directives Records Found Reason for Referral Specialty Diagnoses / Procedures Referred By Fihs t Referred To Contact Racheal Bhatt APRN.[employer] [address] [place] [address] Referral ID Status Reason Start Date Expiration Date Visits Re quested Visits Authorized [id number] Closed 1 1 Referral ID Status Reason Start Date Expiration Date Visits Re quested Visits Authorized [id number] Closed 1 1 Referral ID Status Reason Start Date Expiration Date Visits Re quested Visits Authorized [id number] Closed 1 1 Additional Source Comments Goals (unrecognized section and content) Goals may be documented in a n alternate section Source Comments (unrecognize d section and content) In the event this informatio n is protected by the Federal Confidentiality of Alcohol and Drug Abuse Patient Records regulations: The Federal rules restrict any use of the information to criminally investigate or prosecute any alcohol or drug abuse patient.[facility] the event this information is protected by the Federal Confidentiality of Alcohol and Drug Abuse Patient Records regulations: The Federal rules restrict any use of the information to criminally investigate or prosecute any alcohol or drug abuse patient.[facility] the event this information is protected by the Federal Confidentiality of Alcohol and Drug Abuse Patient Records regulations: The Federal rules restrict any use of the information to criminally investigate or prosecute any alcohol or drug abuse patient.[facility] the event this information is protected by the Federal Confidentiality of Alcohol and Drug Abuse Patient Records regulations: The Federal rules restrict any use of the information to criminally investigate or prosecute any alcohol or drug abuse patient.[facility] the event this information is protected by the Federal Confidentiality of Alcohol and Drug Abuse Patient Records regulations: The Federal rules restrict any use of the information to criminally investigate or prosecute any alcohol or drug abuse patient.[facility] the event this information is protected by the Federal Confidentiality of Alcohol and Drug Abuse Patient Records regulations: The Federal rules restrict any use of the information to criminally investigate or prosecute any alcohol or drug abuse patient.[facility] the event this information is protected by the Federal Confidentiality of Alcohol and Drug Abuse Patient Records regulations: The Federal rules restrict any use of the information to criminally investigate or prosecute any alcohol or drug abuse patient.[facility] the event this information is protected by the Federal Confidentiality of Alcohol and Drug Abuse Patient Records regulations: The Federal rules restrict any use of the information to criminally investigate or prosecute any alcohol or drug abuse patient.[facility] the event this information is protected by the Federal Confidentiality of Alcohol and Drug Abuse Patient Records regulations: The Federal rules restrict any use of the information to criminally investigate or prosecute any alcohol or drug abuse patient.[facility] the event this information is protected by the Federal Confidentiality of Alcohol and Drug Abuse Patient Records regulations: The Federal rules restrict any use of the information to criminally investigate or prosecute any alcohol or drug abuse patient.[facility] the event this information is protected by the Federal Confidentiality of Alcohol and Drug Abuse Patient Records regulations: The Federal rules restrict any use of the information to criminally investigate or prosecute any alcohol or drug abuse patient.[facility] the event this information is protected by the Federal Confidentiality of Alcohol and Drug Abuse Patient Records regulations: The Federal rules restrict any use of the information to criminally investigate or prosecute any alcohol or drug abuse patient.[facility] the event this information is protected by the Federal Confidentiality of Alcohol and Drug Abuse Patient Records regulations: The Federal rules restrict any use of the information to criminally investigate or prosecute any alcohol or drug abuse patient.[facility] the event this information is protected by the Federal Confidentiality of Alcohol and Drug Abuse Patient Records regulations: The Federal rules restrict any use of the information to criminally investigate or prosecute any alcohol or drug abuse patient.[facility] the event this information is protected by the Federal Confidentiality of Alcohol and Drug Abuse Patient Records regulations: The Federal rules restrict any use of the information to criminally investigate or prosecute any alcohol or drug abuse patient.[facility] the event this information is protected by the Federal Confidentiality of Alcohol and Drug Abuse Patient Records regulations: The Federal rules restrict any use of the information to criminally investigate or prosecute any alcohol or drug abuse patient.[facility] the event this information is protected by the Federal Confidentiality of Alcohol and Drug Abuse Patient Records regulations: The Federal rules restrict any use of the information to criminally investigate or prosecute any alcohol or drug abuse patient.[facility] the event this information is protected by the Federal Confidentiality of Alcohol and Drug Abuse Patient Records regulations: The Federal rules restrict any use of the information to criminally investigate or prosecute any alcohol or drug abuse patient.[facility] the event this information is protected by the Federal Confidentiality of Alcohol and Drug Abuse Patient Records regulations: The Federal rules restrict any use of the information to criminally investigate or prosecute any alcohol or drug abuse patient.[facility]In the event this information is protected by the Federal Confidentiality of Alcohol and Drug Abuse Patient Records regulations: The Federal rules restrict any use of the information to criminally investigate or prosecute any alcohol or drug abuse patient.[facility] the event this information is protected by the Federal Confidentiality of Alcohol and Drug Abuse Patient Records regulations: The Federal rules restrict any use of the information to criminally investigate or prosecute any alcohol or drug abuse patient.[facility]In the event this information is protected by the Federal Confidentiality of Alcohol and Drug Abuse Patient Records regulations: The Federal rules restrict any use of the information to criminally investigate or prosecute any alcohol or drug abuse patient.[facility]In the event this information is protected by the Federal Confidentiality of Alcohol and Drug Abuse Patient Records regulations: The Federal rules restrict any use of the information to criminally investigate or prosecute any alcohol or drug abuse patient.[facility]In the event this information is protected by the Federal Confidentiality of Alcohol and Drug Abuse Patient Records regulations: The Federal rules restrict any use of the information to criminally investigate or prosecute any alcohol or drug abuse patient.[facility]In the event this information is protected by the Federal Confidentiality of Alcohol and Drug Abuse Patient Records regulations: The Federal rules restrict any use of the information to criminally investigate or prosecute any alcohol or drug abuse patient.[facility]In the event this information is protected by the Federal Confidentiality of Alcohol and Drug Abuse Patient Records regulations: The Federal rules restrict any use of the information to criminally investigate or prosecute any alcohol or drug abuse patient.[facility]In the event this information is protected by the Federal Confidentiality of Alcohol and Drug Abuse Patient Records regulations: The Federal rules restrict any use of the information to criminally investigate or prosecute any alcohol or drug abuse patient.[facility]In the event this information is protected by the Federal Confidentiality of Alcohol and Drug Abuse Patient Records regulations: The Federal rules restrict any use of the information to criminally investigate or prosecute any alcohol or drug abuse patient.[facility]In the event this information is protected by the Federal Confidentiality of Alcohol and Drug Abuse Patient Records regulations: The Federal rules restrict any use of the information to criminally investigate or prosecute any alcohol or drug abuse patient.[facility]In the event this information is protected by the Federal Confidentiality of Alcohol and Drug Abuse Patient Records regulations: The Federal rules restrict any use of the information to criminally investigate or prosecute any alcohol or drug abuse patient.[facility]In the event this information is protected by the Federal Confidentiality of Alcohol and Drug Abuse Patient Records regulations: The Federal rules restrict any use of the information to criminally investigate or prosecute any alcohol or drug abuse patient.[facility]In the event this information is protected by the Federal Confidentiality of Alcohol and Drug Abuse Patient Records regulations: The Federal rules restrict any use of the information to criminally investigate or prosecute any alcohol or drug abuse patient.[facility]In the event this information is protected by the Federal Confidentiality of Alcohol and Drug Abuse Patient Records regulations: The Federal rules restrict any use of the information to criminally investigate or prosecute any alcohol or drug abuse patient.[facility]In the event this information is protected by the Federal Confidentiality of Alcohol and Drug Abuse Patient Records regulations: The Federal rules restrict any use of the information to criminally investigate or prosecute any alcohol or drug abuse patient.[facility]In the event this information is protected by the Federal Confidentiality of Alcohol and Drug Abuse Patient Records regulations: The Federal rules restrict any use of the information to criminally investigate or prosecute any alcohol or drug abuse patient.[facility]In the event this information is protected by the Federal Confidentiality of Alcohol and Drug Abuse Patient Records regulations: The Federal rules restrict any use of the information to criminally investigate or prosecute any alcohol or drug abuse patient.[facility]In the event this information is protected by the Federal Confidentiality of Alcohol and Drug Abuse Patient Records regulations: The Federal rules restrict any use of the information to criminally investigate or prosecute any alcohol or drug abuse patient.[facility]In the event this information is protected by the Federal Confidentiality of Alcohol and Drug Abuse Patient Records regulations: The Federal rules restrict any use of the information to criminally investigate or prosecute any alcohol or drug abuse patient.[facility]In the event this information is protected by the Federal Confidentiality of Alcohol and Drug Abuse Patient Records regulations: The Federal rules restrict any use of the information to criminally investigate or prosecute any alcohol or drug abuse patient.[facility]In the event this information is protected by the Federal Confidentiality of Alcohol and Drug Abuse Patient Records regulations: The Federal rules restrict any use of the information to criminally investigate or prosecute any alcohol or drug abuse patient.[facility]In the event this information is protected by the Federal Confidentiality of Alcohol and Drug Abuse Patient Records regulations: The Federal rules restrict any use of the information to criminally investigate or prosecute any alcohol or drug abuse patient.[facility]In the event this information is protected by the Federal Confidentiality of Alcohol and Drug Abuse Patient Records regulations: The Federal rules restrict any use of the information to criminally investigate or prosecute any alcohol or drug abuse patient.[facility]In the event this information is protected by the Federal Confidentiality of Alcohol and Drug Abuse Patient Records regulations: The Federal rules restrict any use of the information to criminally investigate or prosecute any alcohol or drug abuse patient.[facility]In the event this information is protected by the Federal Confidentiality of Alcohol and Drug Abuse Patient Records regulations: The Federal rules restrict any use of the information to criminally investigate or prosecute any alcohol or drug abuse patient.[facility]In the event this information is protected by the Federal Confidentiality of Alcohol and Drug Abuse Patient Records regulations: The Federal rules restrict any use of the information to criminally investigate or prosecute any alcohol or drug abuse patient.[facility]In the event this information is protected by the Federal Confidentiality of Alcohol and Drug Abuse Patient Records regulations: The Federal rules restrict any use of the information to criminally investigate or prosecute any alcohol or drug abuse patient.[facility]In the event this information is protected by the Federal Confidentiality of Alcohol and Drug Abuse Patient Records regulations: The Federal rules restrict any use of the information to criminally investigate or prosecute any alcohol or drug abuse patient.[facility]In the event this information is protected by the Federal Confidentiality of Alcohol and Drug Abuse Patient Records regulations: The Federal rules restrict any use of the information to criminally investigate or prosecute any alcohol or drug abuse patient.[facility]In the event this information is protected by the Federal Confidentiality of Alcohol and Drug Abuse Patient Records regulations: The Federal rules restrict any use of the information to criminally investigate or prosecute any alcohol or drug abuse patient.[facility]In the event this information is protected by the Federal Confidentiality of Alcohol and Drug Abuse Patient Records regulations: The Federal rules restrict any use of the information to criminally investigate or prosecute any alcohol or drug abuse patient.[facility]In the event this information is protected by the Federal Confidentiality of Alcohol and Drug Abuse Patient Records regulations: The Federal rules restrict any use of the information to criminally investigate or prosecute any alcohol or drug abuse patient.[facility]In the event this information is protected by the Federal Confidentiality of Alcohol and Drug Abuse Patient Records regulations: The Federal rules restrict any use of the information to criminally investigate or prosecute any alcohol or drug abuse patient.[facility]In the event this information is protected by the Federal Confidentiality of Alcohol and Drug Abuse Patient Records regulations: The Federal rules restrict any use of the information to criminally investigate or prosecute any alcohol or drug abuse patient.[facility]In the event this information is protected by the Federal Confidentiality of Alcohol and Drug Abuse Patient Records regulations: The Federal rules restrict any use of the information to criminally investigate or prosecute any alcohol or drug abuse patient.[facility]In the event this information is protected by the Federal Confidentiality of Alcohol and Drug Abuse Patient Records regulations: The Federal rules restrict any use of the information to criminally investigate or prosecute any alcohol or drug abuse patient.[facility]In the event this information is protected by the Federal Confidentiality of Alcohol and Drug Abuse Patient Records regulations: The Federal rules restrict any use of the information to criminally investigate or prosecute any alcohol or drug abuse patient.[facility]In the event this information is protected by the Federal Confidentiality of Alcohol and Drug Abuse Patient Records regulations: The Federal rules restrict any use of the information to criminally investigate or prosecute any alcohol or drug abuse patient.[facility]In the event this information is protected by the Federal Confidentiality of Alcohol and Drug Abuse Patient Records regulations: The Federal rules restrict any use of the information to criminally investigate or prosecute any alcohol or drug abuse patient.[facility]In the event this information is protected by the Federal Confidentiality of Alcohol and Drug Abuse Patient Records regulations: The Federal rules restrict any use of the information to criminally investigate or prosecute any alcohol or drug abuse patient.[facility]In the event this information is protected by the Federal Confidentiality of Alcohol and Drug Abuse Patient Records regulations: The Federal rules restrict any use of the information to criminally investigate or prosecute any alcohol or drug abuse patient.[facility]In the event this information is protected by the Federal Confidentiality of Alcohol and Drug Abuse Patient Records regulations: The Federal rules restrict any use of the information to criminally investigate or prosecute any alcohol or drug abuse patient.[facility]In the event this information is protected by the Federal Confidentiality of Alcohol and Drug Abuse Patient Records regulations: The Federal rules restrict any use of the information to criminally investigate or prosecute any alcohol or drug abuse patient.[facility]In the event this information is protected by the Federal Confidentiality of Alcohol and Drug Abuse Patient Records regulations: The Federal rules restrict any use of the information to criminally investigate or prosecute any alcohol or drug abuse patient.[facility]In the event this information is protected by the Federal Confidentiality of Alcohol and Drug Abuse Patient Records regulations: The Federal rules restrict any use of the information to criminally investigate or prosecute any alcohol or drug abuse patient.[facility]In the event this information is protected by the Federal Confidentiality of Alcohol and Drug Abuse Patient Records regulations: The Federal rules restrict any use of the information to criminally investigate or prosecute any alcohol or drug abuse patient.[facility]In the event this information is protected by the Federal Confidentiality of Alcohol and Drug Abuse Patient Records regulations: The Federal rules restrict any use of the information to criminally investigate or prosecute any alcohol or drug abuse patient.[facility]In the event this information is protected by the Federal Confidentiality of Alcohol and Drug Abuse Patient Records regulations: The Federal rules restrict any use of the information to criminally investigate or prosecute any alcohol or drug abuse patient.[facility]In the event this information is protected by the Federal Confidentiality of Alcohol and Drug Abuse Patient Records regulations: The Federal rules restrict any use of the information to criminally investigate or prosecute any alcohol or drug abuse patient.[facility]In the event this information is protected by the Federal Confidentiality of Alcohol and Drug Abuse Patient Records regulations: The Federal rules restrict any use of the information to criminally investigate or prosecute any alcohol or drug abuse patient.[facility]In the event this information is protected by the Federal Confidentiality of Alcohol and Drug Abuse Patient Records regulations: The Federal rules restrict any use of the information to criminally investigate or prosecute any alcohol or drug abuse patient.[facility]In the event this information is protected by the Federal Confidentiality of Alcohol and Drug Abuse Patient Records regulations: The Federal rules restrict any use of the information to criminally investigate or prosecute any alcohol or drug abuse patient.[facility]In the event this information is protected by the Federal Confidentiality of Alcohol and Drug Abuse Patient Records regulations: The Federal rules restrict any use of the information to criminally investigate or prosecute any alcohol or drug abuse patient.[facility]In the event this information is protected by the Federal Confidentiality of Alcohol and Drug Abuse Patient Records regulations: The Federal rules restrict any use of the information to criminally investigate or prosecute any alcohol or drug abuse patient.[facility] the event this information is protected by the Federal Confidentiality of Alcohol and Drug Abuse Patient Records regulations: The Federal rules restrict any use of the information to criminally investigate or prosecute any alcohol or drug abuse patient.[facility] Jackson[facility] the event this information is protected by the Federal Confidentiality of Alcohol and Drug Abuse Patient Records regulations: The Federal rules restrict any use of the information to criminally investigate or prosecute any alcohol or drug abuse patient.[facility] Jackson[facility] the event this information is protected by the Federal Confidentiality of Alcohol and Drug Abuse Patient Records regulations: The Federal rules restrict any use of the information to criminally investigate or prosecute any alcohol or drug abuse patient.[facility] JacksonIn the event this information is protected by the Federal Confidentiality of Alcohol and Drug Abuse Patient Records regulations: The Federal rules restrict any use of the information to criminally investigate or prosecute any alcohol or drug abuse patient.[facility] Jackson[facility] the event this information is protected by the Federal Confidentiality of Alcohol and Drug Abuse Patient Records regulations: The Federal rules restrict any use of the information to criminally investigate or prosecute any alcohol or drug abuse patient.[facility] Jackson[facility] the event this information is protected by the Federal Confidentiality of Alcohol and Drug Abuse Patient Records regulations: The Federal rules restrict any use of the information to criminally investigate or prosecute any alcohol or drug abuse patient.[facility] JacksonIn the event this information is protected by the Federal Confidentiality of Alcohol and Drug Abuse Patient Records regulations: The Federal rules restrict any use of the information to criminally investigate or prosecute any alcohol or drug abuse patient.[facility] JacksonIn the event this information is protected by the Federal Confidentiality of Alcohol and Drug Abuse Patient Records regulations: The Federal rules restrict any use of the information to criminally investigate or prosecute any alcohol or drug abuse patient.[facility] Jackson[facility] the event this information is protected by the Federal Confidentiality of Alcohol and Drug Abuse Patient Records regulations: The Federal rules restrict any use of the information to criminally investigate or prosecute any alcohol or drug abuse patient.[facility] Jackson[facility] the event this information is protected by the Federal Confidentiality of Alcohol and Drug Abuse Patient Records regulations: The Federal rules restrict any use of the information to criminally investigate or prosecute any alcohol or drug abuse patient.[facility] JacksonIn the event this information is protected by the Federal Confidentiality of Alcohol and Drug Abuse Patient Records regulations: The Federal rules restrict any use of the information to criminally investigate or prosecute any alcohol or drug abuse patient.[facility] JacksonIn the event this information is protected by the Federal Confidentiality of Alcohol and Drug Abuse Patient Records regulations: The Federal rules restrict any use of the information to criminally investigate or prosecute any alcohol or drug abuse patient.[facility] JacksonIn the event this information is protected by the Federal Confidentiality of Alcohol and Drug Abuse Patient Records regulations: The Federal rules restrict any use of the information to criminally investigate or prosecute any alcohol or drug abuse patient.[facility] JacksonIn the event this information is protected by the Federal Confidentiality of Alcohol and Drug Abuse Patient Records regulations: The Federal rules restrict any use of the information to criminally investigate or prosecute any alcohol or drug abuse patient.[facility] JacksonIn the event this information is protected by the Federal Confidentiality of Alcohol and Drug Abuse Patient Records regulations: The Federal rules restrict any use of the information to criminally investigate or prosecute any alcohol or drug abuse patient.[facility] JacksonIn the event this information is protected by the Federal Confidentiality of Alcohol and Drug Abuse Patient Records regulations: The Federal rules restrict any use of the information to criminally investigate or prosecute any alcohol or drug abuse patient.[facility] JacksonIn the event this information is protected by the Federal Confidentiality of Alcohol and Drug Abuse Patient Records regulations: The Federal rules restrict any use of the information to criminally investigate or prosecute any alcohol or drug abuse patient.[facility] JacksonIn the event this information is protected by the Federal Confidentiality of Alcohol and Drug Abuse Patient Records regulations: The Federal rules restrict any use of the information to criminally investigate or prosecute any alcohol or drug abuse patient.[facility] JacksonIn the event this information is protected by the Federal Confidentiality of Alcohol and Drug Abuse Patient Records regulations: The Federal rules restrict any use of the information to criminally investigate or prosecute any alcohol or drug abuse patient.[facility] Reason for Visit (unrecogniz ed section and content) Reason Onset Date Comments Care 12/04/2024 Specialty Diagnoses / Procedures Referred By Fish garcia Referred To Contact Steno 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 Zina Jensen APRN.CNM [address] [place] [address] Phone: tel: fax: Referral ID Status Reason Start Date Expiration Date Visits Requested Visits Authorized [id number] Authorized OON Notification Letter 07/25/20 24 07/25/2025 99 99 Reason Comments Infertility Specialty Diagnoses / Procedures Referred By Fish garcia Referred To Contact [facility] Diagnoses Female infertility Procedures FOLLICULAR US I US PELVIC NONOBSTETRIC IMAGE DCMTN LIMITED/F/U Racheal Bhatt APRN.MANAGER LIFE [address] [place] [address] [facility] [address] [place] [address] Referral ID Status Reason Start Date Expiration Date V isits Requested Visits Authorized [id number] Closed Auto-Generate d Referral 03/23/2023 09/03/2023 6 6 Specialty Diagnoses / Procedures Referred By Fish garcia Referred To Contact [facility] Diagnoses IVF pckg [place] [address] [place] [address] Iv[facility] C[facility] [address] [place] [address] Referral ID Status Reason Start Date Expiration Date Visits Requested Visits Authorized [id number] Authorized Financial Clearance Required - Self Pay Financial Clearance Not Required Do Not Bill Insurance - SP patient Patient Cleared - True Self-Pay required payment collected 03/23/2023 06/21/2023 99 99 Reason Comments IVF#1 medical release form Reason Comments Second Opinion Reason Comments IVF clearance Reason Comments New Patient HRB evaluation. Hx l eft breast lump w/ negative uls in 2020. Family hx breast cancer in paternal grandmother w/ 3 recurrences she was originally diagnosed around age 50 and passed this year at 85yo. Paternal grandfather and father both w/ prostate cancer. Maternal aunt w/ hx breast cancer and non-hodgkins lymphoma around age 40-50.She is planning on starting IVF in near future, w/ Dr. Koenig [facility]. 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 Specialty Diagnoses / Procedures Referred By Fish garcia Referred To Contact [facility] Diagnoses [place] [address] [place] [address] [facility] [address] [place] [address] Referral ID Status Reason Start Date Expiration Date Visits Requested Visits Authorized [id number] Authorized Financial Clearance Required - Self Pay Financial Clearance Not Required Patient Cleared INN/SMCP Payor Auth Obtained Patient Cleared - True Self-Pay required payment collected 11/29/2022 01/10/2023 99 99 Reason Comments Karla/re case Reason Comments Refill Request Reason Comments Patient Update Reason Comments medication questions from [facility] Reason Comments History and Physical Reason Comments insurance update Referral ID Status Reason Start Date Expiration Date Visits Requested Visits Authorized [id number] Authorized Auto-Generat ed Referral 03/23/2023 09/03/2023 6 6 Specialty Diagnoses / Procedures Referred By Fish garcia Referred To Contact [facility] Diagnoses IVF pckg [place] [address] [place] [address] Ivf Surgery [facility] [address] [place] [address] Reason Comments she pt waiting for call back Reason Comments lmp 04/27 Karla re sis for fet Reason Comments ques on pgta testing Patient requesting to order meds Reason Comments Patient Question Patient Update Reason Comments FET cleared? Reason Comments Next Steps Reason Comments Genetic Testing Specialty Diagnoses / Procedures Referred By Fish garcia Referred To Contact Breast Clinic Diagnoses New- High Risk- Family hx breast ca- maternal grandmother, paternal aunt- faxed referral: Erik Sweeney MD [address] [place] [phone] Referral ID Status Reason Start Date Expiration Date Visits Re quested Visits Authorized [id number] Closed 02/15/2022 03/12/2023 1 1 Referral ID Status Reason Start Date Expiration Date V isits Requested Visits Authorized [id number] Closed Financial Clearance Required - Self Pay Financial Clearance Not Required Do Not Bill Insurance - SP patient Patient Cleared - True Self-Pay required payment collected 03/23/2023 06/21/2023 99 99 Specialty Diagnoses / Procedures Referred By Fish garcia Referred To Contact [facility] Diagnoses 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 [place] [address] [place] [address] Ivf [facility] Ctr [facility] [address] [place] [address] Referral ID Status Reason Start Date Expiration Date Visits Requested Visits Authorized [id number] Authorized Patient Cleared INN/SMCP Payor Auth Obtained Benefit Check 05/22/2023 08/21/2023 99 99 Reason Comments Cost of FET as self pay patient Karla re fet/please follow up with kim ent Reason Comments Follow Up No Show Reason Comments Infertility Reason Comments pt needs notes from her apt on 04/02 sen t the mt Reason Comments Appointment Reason Comments karla was able to get appt withDr Vig Missed Karla's call Reason Comments Initial OB Visit Reason Onset Date Comments Care 08/20/2024 Specialty Diagnoses / Procedures Referred By Fish garcia Referred To Contact CHARTERED WEALTH MANAGER Diagnoses NA Procedures NA [employer] [address] [place] [address] Referral ID Status Reason Start Date Expiration Date Visits Re quested Visits Authorized [id number] 1 1 Reason Comments OB Possible UTI Reason Onset Date Comments Care 09/03/2024 Urinary symptoms . Reason Comments US Specialty Diagnoses / Procedures Referred By Fish garcia Referred To Contact [facility] Diagnoses with uncertain dates, antepartum Procedures NUCHAL TRANSLUCENCY [facility] US NUCHAL TRANSLUCENCY 1ST GESTATION Zina Jensen APRN.ROJAS [address] [place] [address] [facility] [address] [place] [id number] Referral ID Status Reason Start Date Expiration Date V isits Requested Visits Authorized [id number] Closed Auto-Generate d Referral 07/25/2024 08/12/2025 1 1 Reason Onset Date Comments Care 09/13/2024 US Specialty Diagnoses / Procedures Referred By Fish garcia Referred To Contact Steno 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 Zina Jensen APRN.CNM [address] [place] [address] Referral ID Status Reason Start Date Expiration Date V isits Requested Visits Authorized [id number] Authorized 07/25/2024 07/25/2025 99 99 Reason Onset Date Comments Care 10/15/2024 Reason Onset Date Comments Care 11/08/2024 Specialty Diagnoses / Procedures Referred By Contac t Referred To Contact Steno Typist / CHARTERED WEALTH MANAGER Diagnoses Encounter for supervision of normal first , first trimester OB Routine Procedures OFFICE/OUTPATIENT ESTABLISHED MOD MDM 30 MIN EST [facility]I OB Zina Jensen APRN.CNM [address] [place] [place] [address] Phone: tel: fax: Zina Jensen APRN.CNM [address] [place] [address] Phone: tel: fax: Referral ID Status Reason Start Date Expiration Date Visits Re quested Visits Authorized [id number] Closed 07/25/2024 08/12/2025 1 1 Specialty Diagnoses / Procedures Referred By Contac t Referred To Contact [facility] Diagnoses with uncertain dates, antepartum Procedures OBSTETRIC ULTRASOUND WH US PREG UTERUS AFTER 1ST TRIMEST GESTATION Zina Jensen APRN.CNM [address] [place] [address] Phone: tel: fax: [facility] [address] [place] [phone] Referral ID Status Reason Start Date Expiration Date V isits Requested Visits Authorized [id number] Closed Auto-Generate d Referral 11/02/2024 12/03/2024 1 1 Reason Onset Date Comments Care 01/01/2025 Specialty Diagnoses / Procedures Referred By Contac t Referred To Contact Steno Typist / CHARTERED WEALTH MANAGER Diagnoses Encounter for supervision of normal first , first trimester OB Routine Procedures OFFICE/OUTPATIENT ESTABLISHED MOD MDM 30 MIN EST WHI OB Zina Jensen APRN.CNM [address] [place] [address] Phone: tel: fax:[phone] Zina Jensen APRN.CNM [address] [place] [address] Phone: tel: fax:[phone] Referral ID Status Reason Start Date Expiration Date V isits Requested Visits Authorized [id number] Authorized 07/25/2024 07/25/2025 99 99 Reason Comments Medical record release from [facility] Reason Comments Care Coordination echo f/u Reason Onset Date Comments Care 01/17/2025 Specialty Diagnoses / Procedures Referred By Contac t Referred To Contact Steno Typist / CHARTERED WEALTH MANAGER Diagnoses Encounter for supervision of normal first , second trimester Growth/OB Procedures OFFICE/OUTPATIENT ESTABLISHED MOD [facility] 30 MIN EST WHI OB Zina Jensen APRN.CNM [address] [place] [place] [address] Phone: tel: fax: Zina Jensen APRN.CNM [address] [place] [place] [address] Phone: tel: fax:[phone] Referral ID Status Reason Start Date Expiration Date Visits Re quested Visits Authorized [id number] Closed 07/25/2024 08/12/2025 1 1 Specialty Diagnoses / Procedures Referred By Contac t Referred To Contact [facility] Diagnoses Encounter for supervision of normal first in second trimester (HCC) Procedures OBSTETRIC ULTRASOUND WHI US PREG UTERUS AFTER 1ST TRIMEST GESTATION Zina Jensen APRN.CNM [address] [place] [address] Phone: tel: fax:[phone] [facility] [address] [place] [address] Referral ID Status Reason Start Date Expiration Date V isits Requested Visits Authorized [id number] Closed Auto-Generat ed Referral Patient Cleared - Admin/Chairm an/Director advise to proceed or did not respond 07/25/2024 08/12/2025 1 1 Reason Comments FMLA Paperwork Reason Comments Forms Reason Onset Date Comments Care 02/10/2025 Reason Comments Consult Reason Onset Date Comments Care 02/24/2025 Specialty Diagnoses / Procedures Referred By Fish garcia Referred To Contact Neurology Diagnoses 28 weeks gestation of (HCC) Procedures CONSULT TO NEUROLOGY OFFICE/OUTPATIENT NEW HIGH MDM 60 MINUTES OFFICE/OUTPATIENT NEW MODERATE MDM 45 MINUTES Zina Jensen APRN.CN [address] [place] [address] Phone: tel: fax: [facility] [address]S [address] [place] [address] Referral ID Status Reason Start Date Expiration Date V isits Requested Visits Authorized [id number] Closed PCP Requested Referral 01/17/2025 09/03/2025 1 1 Reason Comments Opened In Error Reason Onset Date Comments Care 03/05/2025 Specialty Diagnoses / Procedures Referred By Fish garcia Referred To Contact Steno Typist / CHARTERED WEALTH MANAGER Diagnoses Encounter for supervision of normal first , first trimester (HCC) OB Routine Procedures OFFICE/OUTPATIENT ESTABLISHED MOD MDM 30 MIN EST WHI OB Zina Jensen APRN.CN [address] [place] [address] Phone: tel: fax: Zina Jensen APRN.CN [address] [place] [address] Phone: tel: fax: Reason Comments New Patient Specialty Diagnoses / Procedures Referred By Fish garcia Referred To Contact Neurology / NEUROSURGERY Diagnoses 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 Procedures OFFICE/OUTPATIENT NEW MODERATE MDM 45 MINUTES OFFICE/OUTPATIENT ESTABLISHED MOD MDM 30 MIN [facility] SURGICAL [facility] [address] [address] Phone: tel: Livia Denny MD [address] [place] [address] Phone: tel: fax: Referral ID Status Reason Start Date Expiration Date V isits Requested Visits Authorized [id number] Authorized 03/03/2025 08/30/2025 99 99 Reason Onset Date Comments Population Health Navigation Outreach 03/10/2025 Ob/peds Reason Onset Date Comments Care 03/10/2025 Specialty Diagnoses / Procedures Referred By Fish garcia Referred To Contact Steno Typist / CHARTERED WEALTH MANAGER Diagnoses Encounter for supervision of normal first , first trimester (HCC) OB Routine Procedures OFFICE/OUTPATIENT ESTABLISHED MOD MDM 30 MIN EST WHI OB Zina Jensen APRN.CN [address] [place] [address] Phone: tel: fax:[phone] Zina Jensen APRN.CN [address] [place] [address] Phone: tel: fax: Reason Onset Date Comments Care 03/20/2025 Specialty Diagnoses / Procedures Referred By Fish garcia Referred To Contact CHARTERED WEALTH MANAGER Diagnoses na Procedures na OB/Gynecology [address] [place] [address] Phone: tel: Referral ID Status Reason Start Date Expiration Date Visits Re quested Visits Authorized [id number] 1 1 Reason Comments Appointment Imaging/Records Care Teams (unrecognized sec tion and content) Data Steward Relationship Specialty Start Date End Date Tushar Centeno [address] [place] [address] PCP - General Family Medicine 04/12/23 Data Steward Relationship Specialty Start Date End Date Tushar Centeno [address] [place] [address] PCP - General Family Medicine 04/12/23 Data Steward Relationship Specialty Start Date End Date Tushar Centeno [address] [place] [address] PCP - General Family Medicine 04/12/23 Data Steward Relationship Specialty Start Date End Date Tushar Centeno [address] [facility] [place] [address] PCP - General Family Medicine 04/12/23 Data Steward Relationship Specialty Start Date End Date Tushar Centeno [address] [facility] [place] [address] PCP - General Family Medicine 04/12/23 Data Steward Relationship Specialty Start Date End Date Tushar Centeno [address] [facility] [place] [address] PCP - General Family Medicine 04/12/23 Data Steward Relationship Specialty Start Date End Date Tushar Centeno [address] [facility] [place] [address] PCP - General Family Medicine 04/12/23 Data Steward Relationship Specialty Start Date End Date Tushar Centeno [address] [facility] [address] PCP - General Family Medicine 04/12/23 Data Steward Relationship Specialty Start Date End Date Tushar Centeno [address] [facility] [address] PCP - General Family Medicine 04/12/23 Data Steward Relationship Specialty Start Date End Date Tushar Centeno [address] [facility] [place] [address] PCP - General Family Medicine 04/12/23 Data Steward Relationship Specialty Start Date End Date Tushar Centeno [address] [facility] [place], [place] [address] PCP - General Family Medicine 04/12/23 Data Steward Relationship Specialty Start Date End Date Tushar Centeno MD [address] [place] [address] PCP - General Family Medicine 04/12/23 Data Steward Relationship Specialty Start Date End Date Tushar Centeno MD [address] [place] [address] PCP - General Family Medicine 04/12/23 Data Steward Relationship Specialty Start Date End Date Tushar Centeno MD [address] [place] [address] PCP - General Family Medicine 04/12/23 Data Steward Relationship Specialty Start Date End Date Tushar Centeno MD [address] [place] [address] PCP - General Family Medicine 04/12/23 Data Steward Relationship Specialty Start Date End Date Tushar Centeno MD [address] [place] [address] PCP - General Family Medicine 04/12/23 Data Steward Relationship Specialty Start Date End Date Tushar Centeno MD [address] [place] [address] PCP - General Family Medicine 04/12/23 Data Steward Relationship Specialty Start Date End Date Tushar Centeno MD [address] [place] [address] PCP - General Family Medicine 04/12/23 Data Steward Relationship Specialty Start Date End Date Tushar Centeno MD [address] [place] [address] PCP - General Family Medicine 04/12/23 Mitesh Fregoso [address] [place] [address] Referring Steno Typist 02/01/24 Data Steward Relationship Specialty Start Date End Date Tushar Centeno MD [address] [place] [address] PCP - General Family Medicine 04/12/23 Mitesh Fregoso [address] [place] [address] Referring Steno Typist 02/01/24 Data Steward Relationship Specialty Start Date End Date Tushar eCnteno MD [address] [employer] [place] [address] PCP - General Family Medicine 04/12/23 Mitesh Fregoso [address] [place] [address] Referring Steno Typist 02/01/24 Data Steward Relationship Specialty Start Date End Date Tushar Centeno MD [address] [facility] [address] [place] [address] PCP - General Family Medicine 04/12/23 Mitesh Fregoso [address] [place] [address] Referring Steno Typist 02/01/24 Data Steward Relationship Specialty Start Date End Date Tushar Centeno MD [address] [place] [address] PCP - General Family Medicine 04/12/23 Mitesh Fregoso [address] [place] [address] Referring Steno Typist 02/01/24 Data Steward Relationship Specialty Start Date End Date Tushar Centeno MD [address] [place] [address] PCP - General Family Medicine 04/12/23 Mitesh Fregoso [address] [place] [address] Referring Steno Typist 02/01/24 Data Steward Relationship Specialty Start Date End Date Tushar Centeno MD [address] [facility] [place] [address] PCP - General Family Medicine 04/12/23 Mitesh Fregoso [address] [place] [address] Referring Steno Typist 02/01/24 Data Steward Relationship Specialty Start Date End Date Tushar Centeno MD [address] [facility] [place] [address] PCP - General Family Medicine 04/12/23 Mitesh Fregoso [address] [place] [address] Referring Steno Typist 02/01/24 Data Steward Relationship Specialty Start Date End Date Tushar Centeno MD [address] [place] [address] PCP - General Family Medicine 04/12/23 Mitesh [address] [id number] [place] [address] Referring Steno Typist 02/01/24 Data Steward Relationship Specialty Start Date End Date Tusahr Centeno MD [address] [place] [address] PCP - General Family Medicine 04/12/23 Mitesh [address] [address] [place] [address] Referring Steno Typist 02/01/24 Data Steward Relationship Specialty Start Date End Date Tushar Centeno MD [address] [facility] [place] [address] PCP - General Family Medicine 04/12/23 Mitesh [address] [address] [place] [address] Referring Steno Typist 02/01/24 Data Steward Relationship Specialty Start Date End Date Tushar Centeno MD [address] [facility] [place] [address] PCP - General Family Medicine 04/12/23 Mitesh [address] [address] [place] [address] Referring Steno Typist 02/01/24 Data Steward Relationship Specialty Start Date End Date Tushar Centeno MD [address] [place] [address] PCP - General Family Medicine 04/12/23 Mitesh [address] [address] [place] [address] Referring Steno Typist 02/01/24 Data Steward Relationship Specialty Start Date End Date Tushar Centeno MD [address] [place] [address] PCP - General Family Medicine 04/12/23 Mitesh [address] [address] [place] [address] Referring Steno Typist 02/01/24 Data Steward Relationship Specialty Start Date End Date Tushar Centeno MD [address] [facility] [place] [address] PCP - General Family Medicine 04/12/23 Mitesh [address] [address] [place] [address] Referring Steno Typist 02/01/24 Data Steward Relationship Specialty Start Date End Date Tushar Centeno MD [address] [facility] [place] [address] PCP - General Family Medicine 04/12/23 Mitesh [address] [address] [place] [address] Referring Steno Typist 02/01/24 Data Steward Relationship Specialty Start Date End Date Tushar Centeno MD [address] [place] [address] PCP - General Family Medicine 04/12/23 Mitesh [address] [address] [place] [address] Referring Steno Typist 02/01/24 Data Steward Relationship Specialty Start Date End Date Tushar Centeno MD [address] [place] [address] PCP - General Family Medicine 04/12/23 Mitesh [address] [address] [place] [address] Referring Steno Typist 02/01/24 Data Steward Relationship Specialty Start Date End Date Tushar Centeno MD [address] [facility] [place] [address] PCP - General Family Medicine 04/12/23 Mitesh [address] [address] [place] [address] Referring Steno Typist 02/01/24 Data Steward Relationship Specialty Start Date End Date Tushar Centeno MD [address] [facility] [place] [address] PCP - General Family Medicine 04/12/23 Mitesh [address] [address] [place] [address] Referring Steno Typist 02/01/24 Data Steward Relationship Specialty Start Date End Date Tushar Centeno MD [address] [place] [address] PCP - General Family Medicine 04/12/23 Mitesh [address] [address] [place] [address] Referring Steno Typist 02/01/24 Data Steward Relationship Specialty Start Date End Date Tushar Centeno MD [address] [place] [address] PCP - General Family Medicine 04/12/23 Mitesh [address] [address] [place] [address] Referring Steno Typist 02/01/24 Data Steward Relationship Specialty Start Date End Date Tushar Centeno MD [address] [facility] [place] [address] PCP - General Family Medicine 04/12/23 Mitesh [address] [address] [place] [address] Referring Steno Typist 02/01/24 Data Steward Relationship Specialty Start Date End Date Tushar Centeno MD [address] [facility] [place] [address] PCP - General Family Medicine 04/12/23 Mitesh [address] [address] [place] [address] Referring Steno Typist 02/01/24 Data Steward Relationship Specialty Start Date End Date Cecile Ruth CNP [address] [place] [address] PCP - General Family Medicine 03/06/25 Mitesh [address] [address] [place] [address] Referring Steno Typist 02/01/24 Data Steward Relationship Specialty Start Date End Date Cecile Ruth CNP [address] [place] [address] PCP - General Family Medicine 03/06/25 Mitesh [address] [address] [place] [address] Referring Steno Typist 02/01/24 Data Steward Relationship Specialty Start Date End Date Cecile Ruth CNP [address] [place] [address] PCP - General Family Medicine 03/06/25 Mitesh [address] [address] [place] [address] Referring Steno Typist 02/01/24 Data Steward Relationship Specialty Start Date End Date Cecile Ruth CNP [address] [place] [address] PCP - General Family Medicine 03/06/25 Mitesh [address] [address] [place] [address] Referring Steno Typist 02/01/24 Data Steward Relationship Specialty Start Date End Date Cecile Ruth CNP [address] [place] [address] PCP - General Family Medicine 03/06/25 Mitesh [address] [address] [place] [address] Referring Steno Typist 02/01/24 Data Steward Relationship Specialty Start Date End Date Tushar Centeno MD [address] [place] [address] PCP - General Family Medicine 04/12/23 03/05/25 Cecile Ruth, [employer]GER [employer] [address] [place] [address] PCP - General Family Medicine 03/06/25 Mitesh [address] [address] [place] [address] Referring Steno Typist 02/01/24 Data Steward Relationship Specialty Start Date End Date Tushar Centeno MD [address] [place] [address] PCP - General Family Medicine 04/12/23 03/05/25 Cecile Ruth, [employer]NAGER [employer] [address] [place] [address] PCP - General Family Medicine 03/06/25 Mitesh [address] [address] [place] [address] Referring Steno Typist 02/01/24 Data Steward Relationship Specialty Start Date End Date Tushar Centeno MD [address] [place] [address] PCP - General Family Medicine 04/12/23 03/05/25 Cecile Ruth, MANAGER [employer] [address] [facility] [place] [address] PCP - General Family Medicine 03/06/25 Mitesh [address] [address] [place] [address] Referring Steno Typist 02/01/24 Data Steward Relationship Specialty Start Date End Date Tushar Centeno MD [address] [facility] [place] [address] PCP - General Family Medicine 04/12/23 03/05/25 Cecile Ruth CNP [address] [facility] [place] [address] PCP - General Family Medicine 03/06/25 Mitesh [address] [address] [place] [address] Referring Steno Typist 02/01/24 INFORMATION SOURCE (unrecogn ized section and content) DATE CREATED AUTHOR 07/09/2023 [facility] DATE CREATED AUTHOR AUTHOR'S ORGANIZ ATION 03/07/2025 [facility] DATE CREATED AUTHOR AUTHOR'S ORGANIZ ATION 03/24/2025 [facility] DATE CREATED AUTHOR AUTHOR'S ORGANIZ ATION 03/26/2025 [facility] FOR RECORDS PERTAINING TO PATIENTS WHO ARE OR HAVE BEEN ENROLLED IN A CHEMICAL DEPENDENCY/SUBSTANCEABUSE PROGRAM, SOME INFORMATION MAY BE OMITTED. This clinical summary was aggregated from multiple sources. Caution should be exercised in using it in the provision of clinical care. This summary normalizes information from multiple sources, and as a consequence, information in this document may materially change the coding, format and clinical context of patient data. In addition, data may be omitted in some cases. CLINICAL DECISIONS SHOULD BE BASED ON THE PRIMARY CLINICAL RECORDS. [email or web address] provides no warranty or guarantee of the accuracy or completeness of information in this document.
[2025-03-26 21:03] VITALS: BMI 25.1
--- OUTSIDE RECORDS SUMMARY | 2025-03-26 21:03 | XMS RPT_ITS | CCD ---
Author Organization [facility] Care Team Providers Care Concert Or Lecture Hall Manager Name Role Phone Unavailable Primary Care Provider [...] Attending Unavailable Tushar Centeno Primary Care Unavailable Tusahr Centeno Primary Care Unavailable Wendie Ly Referring Unavailable Wendie Ly Attending Unavailable Peter Teresa Referring Unavailable Peter Teresa Attending Unavailable Peter Teresa Admitting Unavailable Tushar Centeno Primary Care Unavailable Cecile Ruth CNP Primary Care Provider [phone] Tushar Centeno MD Primary Care Provide r [...] Unavailable BEBETO VALENCIA Attending Unavailable GODLECARLOS EDUARDO, [facility] Primary Care Unavail able JENSEN, ZINA Referring Unavailable GODLEWSVLADIMIR, [facility] Primary Care Unavail able JENSEN, ZINA Referring Unavailable GODLEWSKI, [facility] Primary Care Unavail able JENSEN, ZINA Referring Unavailable JENSEN, ZINA Attending Unavailable GODLECARLOS EDUARDO, [facility] Primary Care Unavail able VICKY ENGEL Attending Unavailable GODLEWSVLADIMIR, [facility] Primary Care Unavail able JENSEN, ZINA Referring Unavailable JENSEN, ZINA Attending Unavailable GODROSSANA, [facility] Primary Care Unavail able VICKY ENGEL Referring Unavailable GODLEWSVLADIMIR, [facility] Primary Care Unavail able MITESH FREGOSO Referring Unavailable BRAD RODRIGUEZ Attending Unavailable GODLEWSVLADIMIR, [facility] Primary Care Unavail able JENSEN, ZINA Attending Unavailable GODLECARLOS EDUARDO, [facility] Primary Care Unavail able JENESN, ZINA Referring Unavailable GODLEWSVLADIMIR, TUSHAR ANDREI Primary Care Unavail able JENSEN, ZINA Attending Unavailable GODLEWSVLADIMIR, TUSHAR ANDREI Primary Care Unavail able JENSEN, ZINA Referring Unavailable GODLECARLOS EDUARDO, TUSHAR ANDREI Primary Care Unavail able ASHLI LARAY Referring Unavailable MISBAH CHEN Attending Unavailable GODLECARLOS EDUARDO, [facility] Primary Care Unavail able VICKY ENGEL Attending Unavailable GODLEWSVLADIMIR, [facility] Primary Care Unavail able NADORLIK, JOSSY Referring Unavailable GODLEWSVLADIMIR, [facility] Primary Care Unavail able JENSEN, ZINA Referring Unavailable PETER TERESA Attending Unavailable GODLEWSVLADIMIR, TUSHAR ANDREI Primary Care Unavail able JENSEN, ZINA Attending Unavailable GODLEWSVLADIMIR, [facility] Primary Care Unavail able GODLEWSVLADIMIR, [facility] Primary Care Unavail able JENSEN, ZINA Attending Unavailable GODLEWSVLADIMIR, [facility] Primary Care Unavail able JENSEN, ZINA Referring [...] Amoxicillin; Translations: [AMOXICILLIN] Drug Allergy 3 Rash [facility] (20 sources) Latex; Translations: [LATEX] Propensity to adverse reactions to drug 3 Swelling [facility] (1 source) Latex Propensity to adverse reactions to drug 3 Swelling [facility] (20 sources) Clindamycin; Translations: [CLINDAMYCIN] Drug Allergy [address] [facility] (1 source) Amoxicillin Drug Allergy 5 [facility] (1 source) Latex Drug allergy (disorder) 5 [facility] Repository Medications Current Medications Medication Drug Class(es) [...] mouth. 0 Active omega-3 acid ethyl esters (jail) 1000 mg oral capsule (2 sources) take [...] Polo e by mouth. Active chorionic gonadotropin 57980 unt/ml injectable solution (17 sources) Gonadotropin Start: 02-23-2023 End: 04-14-2023 chorionic gonadotropin (PREGNYL) 10,000 unit solr 10,000 Units once daily. 10,000 Units as directed. Inject 10,000 units for HCG trigger 1 Each 1 02/23/2023 04/14/2023 Discontinued Comment on above: 10,000 Units once da foreign. 10,000 Units as directed. Inject 10,000 units for HCG trigger CRANBERRY WSWKEXZ-M-OVHXVQR ORAL (8 sources) Start: 06-03-2022 End: 03-09-2025 CRANBERRY UUIQHVA-A-AWCPPXT ORAL Take by mouth. 06/03/2022 03/09/2025 Discontinued (Course of therapy completed) Start: 06-03-2022 CRANBERRY EXTR HMR-R-UXQVQGA ORAL Take by mouth. 06/03/2022 Active doxycycline [...] on above: Take 3 tablets by mo [facility] once daily. fish oil/borage/flax/o m3,6,9 1 (OMEGA [...] B/Oon Glucose Ql (U) Negative Neg mg/dL [facility] Interpretation and review of laboratory results Normal [facility] Protein.monoclonal (U) [Mass/Vol] Negative Neg mg/dL [facility] UA DIP, URINE (POC)on 2024 BILIRUBIN UA (POCT) Negative Negative [facility] CLARITY UA (POCT) Clear [facility] COLOR UA (POCT) Yellow [facility] GLUCOSE UA (POCT) Negative Negative mg/dL [facility] Hemoglobin Ql (U) Negative Negative [facility] KETONE UA (POCT) Negative Negative mg/dL [facility] LEUKOCYTES UA (POCT) Negative Negative [facility] NITRITE UA (POCT) Negative Negative [facility] PH UA (POCT) 7 4.5 - 8.[address] [facility] Protein Ql (U) Negative Negative mg/dL [facility] SPECIFIC GRAVITY UA (POCT) 1.01 1.005 - 1.[address] [facility] UROBILINOGEN UA (POCT) 0.2 Normal E.U./dL [facility] Location:[facility], [address], [place], [address] [facility] POINT OF CARE [facility] CNOVon 03-06-2025 CNOV Office Visit (NEVCM) DONA GUTIERREZ ([id number]) 1990 F Date Time Provider Department 03/06/25 2:00 PM LIVIA DENNY [facility] During your visit today, we recorded the following information about you: Pulse Blood pressure Weight 87/minute 115/72 71.2 kg Livia Denny MD 03/09/2025 11:39 PM [facility] Initial Visit Dona Gutierrez CC#: [id number] Date of Service: 03/06/2025 Primary Care Provider: Tushar Centeno MD, MD The patient was referred by [facility], [place] for opinion regarding a left pontine capillary [...] for Supervision of Normal in First Trimester ([facility]) History of Infertility Rh Negative State in Antepartum Period, First Trimester ([facility]) Cavernoma or capillary telangiectasia Ptsd (Post-Traumatic Stress [...] ORAL) Take by mouth once daily. CRANBERRY YPOJGTH-R-XMUNSGU ORAL Take by mouth. (Patient not taking: [...] and symmetri (more content not included)... Normal [facility] MR/PAT.ANEon 03-06-2025 MR/PAT[facility] Medical Records Department [address] [place] [address] PAT - Anesthesia 03/06/25 0016 MR#: [id number] Acct: [id number] Name: DONA GUTIERREZ Rep #: [id number] : 1990 34 From: Alli Mendez MD PCP: Dr. Tushar Centeno MD Status:PRE [place] Y Race: C Location: [place] Pre-Assessment Diagnosis/Proposed Procedure Planned Operative Procedure(s): VAGINAL DELIVERY Anesthesia History Anesthesia History - tinter photograph: Anesthesia History - tinter photograph Hx Hospitalization No 03/03/25 10:38 Any Problems [...] take am of surgery PONV PONV - tinter photograph: PONV - tinter photograph Female Yes 03/03/25 10:38 HX of Motion [...] 05/09/24 16:37 Respiratory Assessment Respiratory Assessment - tinter photograph: Respiratory Tract Infection Hx - tinter photograph Hx Respiratory Tract Infection No 03/03/25 10:38 STOP Sleep Apnea STOP Sleep Apnea - tinter photograph: STOP Sleep Apnea - tinter photograph Hx Hypertension No 03/03/25 10:38 Hx Sleep [...] Tobacco Use History Tobacco Use History - tinter photograph: Tobacco Use History - tinter photograph Tobacco Use Smoking Status Never smoker 03/03/25 10:38 Hx Tobacco Use No 03/03/25 10:38 Years Smoking Packs Smoked per Day Smoking Cessation Date was within the last 15 years Hx Smoking Cessation Date Hx Smoking Cessation Counseling Hematologic Medial History Hematologic Hx - tinter photograph: 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 Hx of Blood Transfusion No 03/03/25 10:38 [...] confused, unrespo /Reproduction History /Reproductive History - tinter photograph: /Reproductive Hx- tinter photograph Hx Now No 03/03/25 10:38 Gestational Age (in weeks): EDC: Hx Hx Para Hx Section SAB No 03/03/25 10:38 [facility] Medical History (Updated 03/03/25 @ 10:38 by [...] story rhamnosus 12 billion cell chew tablet ([facility]) cholecalciferol (vitamin D3) 50 4,000 unit PO DAILY 03/03/25 Unkno wn History mcg (2,000 unit) capsule (Vitamin D3) choline 500 mg tablet 500 mg PO DAILY 03/03/25 Unknown H istory fish oil-dha-epa 1,200 mg-144 1 cap PO DAILY 03/03/25 Unknown Hi story mg-216 mg capsule multivitamin-folic acid 400 1 tab PO DAILY 03/03/25 Unknown Hi story mcg-biotin 2,000 mcg tablet (Hscn-Hjis-Nskfm (gzaddngv-pyiwm-vbeaue )) Allergy/AdvR (more content not included)... Normal [facility] URINE OB DIP B/Oon Glucose Ql (U) Negative Neg mg/dL [facility] Interpretation and review of laboratory results Normal [facility] Protein.monoclonal (U) [Mass/Vol] Negative Neg mg/dL [facility] CNPNon 03-03-2025 CNPN Telephone ([facility]) DONA GUTIERREZ ([id number]) 1990 F Date Time Provider Department 03/03/25 [facility]IA [facility] During your visit today, we recorded the following information about you: Malathi Hutchinson 03/03/2025 11:58 AM Signed I received an urgent referral for this patient from Yaquelin [place] ([place]) 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 Also she is 37 weeks . Am I allowed to schedule her with Dr. Denny this ? Janelle Curry, RN 03/03/2025 12:24 PM Signed Pt has urgent referral form [place] for Dr Denny. Nisha Awan Has added pt to Dr Denny schedule, but need imaging. None located in [facility]. Anderson Meyer 03/06/2025 10:55 AM Addendum Spoke with patient AND she confirmed [address] [facility] is most recent. Requested images from [facility] [employer]. Patient states she may have imaging on a CD. If she finds, she will also bring to appointment. OSH imaging/records received from [facility]: March 03, 2025 -Last 5 Years Records available in Care Everywhere -Last 5 Years Imaging Varun Younger 03/04/2025 8:39 AM Signed Received outside medical records from [place] and scanned into patient chart. Allergies As [...] Status:Closed by RENA ISAAC on 03/24/25 Normal [facility] Gp B Strep Vag Ql Culton S. agalactiae Org specific cx Ql (Vag fld) Positive for Group B Streptococcus by PCR. Unable to recover viable organism for susceptibility testing. Abnormal [facility] Comment on above: Performed By: #### G BPCR, 584-3 ####[facility] LABCLIA [id number] [place] [id number] [place] ROUTINE, GROUP B ST REPTOCOCCUS BY PCRon 02-24-2025 ROUTINE, GROUP B STREPTOCOCCUS BY PCR Detected Abnormal [facility] Comment on above: Performed By: #### G BPCR, 584-3 ####[facility] LABCLIA [id number] [place] [id number] [place] URINE OB DIP B/Oon 5 Glucose Ql (U) Negative Neg mg/dL [facility] Interpretation and review of laboratory results Normal [facility] Protein.monoclonal (U) [Mass/Vol] Negative Neg mg/dL [facility] T. gondii IgG Qn (S)on 02-20 Interpretation and review of laboratory results Normal [facility] Toxo IgG Qual Negative Negative [facility] Comment on above: No serological evide nce of past exposure to Toxoplasma gondii. Cannot exclude recent infection if the specimen collected within 3-[address] [facility] T. gondii IgG Qn (S)on 02-19 TOXO IGG QUAL Negative Normal Negative [facility] Comment on above: Order Comment: Sherine peter Type: BLOOD SPECIMENOrdering Facility: [facility] Address: [address] [place] [address] Result Comment: No s erological evidence of past exposure to Toxoplasma gondii. Cannot exclude recent infection if the specimen collected within 3-4 weeks after infection. Performed By: #### 8 039-0, 8040-8 ####[facility] [id number] [address] [place] T. gondii IgM Qn (S)on 02-19 TOXO IGM QUAL Negative Normal Negative [facility] Comment on above: Order Comment: Sherine peter Type: BLOOD SPECIMENOrdering Facility: [facility] Address: [address] [place] [address] Result Comment: No s erological evidence of recent exposure to Toxoplasma gondii. 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 - cholecalciferol (VITAMIN [...] Status:Closed by FORREST WALKER on 02/24/25 Normal [facility] FETALon 02-12-2025 + -- ------+-+ Pediatric Cardiology Echocardiogram Report + ------+-+ NAME: MRS. DONA GUTIERREZ : 1990 PT ID#: [id number] Age: 34 years Sex: F STUDY DATE: 02/12/2025 10:24:59 AM SHANTI: 03/23/2025 GA: 34w3d Image Quality: The images were of adequate diagnostic quality. 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 [facility] Tele[facility] (OBGYWM) DONA GUTIERREZ ([id number]) 1990 F Date Time Provider Department 02/06/25 ZINA JENSEN During your visit today, we recorded the following information about you: Kristen Patterson RN 02/06/2025 4:51 PM Signed Patient referred for neurology consult by Zina Jensen. [facility] calling to notify office that they will be faxing over forms that need to be completed prior to scheduling patient. Form received and given to Zina Jensen to sign. Will need faxed back once signed. BRIANNA Ramos Trisha, RN 02/07/2025 11:39 AM Signed Patient also sent [facility] message regarding this. Lacey Mazariegos RN Allergies [...] Encounter Status:Closed by KRISTEN PATTERSON on 02/06/25 [facility] DON[facility] GUTIERRE[facility] ([id number]) 1990 F Date Time Provider Department 02/05/25 JENSEN, ZINA OBGYWM During your visit today, we recorded the following information about you: Valente Cotton MA 02/05/2025 4:31 PM Signed Spouse's [facility] paperwork completed and faxed back to employer. Patient notified. Valente Cotton MA Allergies As of Date: 02/05/2025 Noted Allergy Reaction AMOXICILLIN 12/07/2022 2 - Rash CLINDAMYCIN 03/06/2019 6 - Diarrhea LATEX 12/07/2022 7 - Swelling Date Reviewed: 01/31/2025 Reviewed by: Mariaelena Rubio MA - Fully Assessed Reason for Visit: [place] Paperwork [[id number]] Prescriptions as of 02/05/2025 - CHOLINE CHLORIDE, [...] (post-traumatic stress disorder) [F43.10] Encounter Status:Closed by VLAENTE COTTON on 02/05/25 Normal [facility] T. gondii IgM Qn (S)on 01-23 Interpretation and review of laboratory results Normal [facility] Toxo IgM Qual Negative Negative [facility] Comment on above: No serological evide nce of recent exposure to Toxoplasma gondii. [facility] 25(OH)D3 SerPl-mCncon 2024 25-hydroxyvitamin D3 [Mass/Vol] 55.7 ng/mL Normal 31.0-80.0 [facility] Comment on above: Order Comment: Sherine peter Type: BLOOD SPECIMEN [facility]ing Facility: [facility] Address: [address] [place] [address] Result Comment: Clas sification of 25 [place] Vitamin D status: Deficiency/Insufficiency: < or = 30 ng/ml. Sufficiency/Optimal Levels: 31-80 ng/mL Toxicity: > 100 ng/mL. Test performed by chemiluminescent immunoassay. Performed By: #### 7 3752-8 #### [facility] CLIA [id number] [address] [place] [address] [place] Examination level ultrasound on 01-17-[address] [facility] Radiology Study observation (narrative) [facility] T. gondii IgG Qn (S)on 01-17 TOXO IGG QUAL Negative Normal Negative [facility] Comment on above: Order Comment: Sherine peter Type: BLOOD SPECIMEN [facility]ing [facility]: [facility] Address: [address] [place] [address] Result Comment: No s erological evidence of past exposure to Toxoplasma gondii. Cannot exclude recent infection if the specimen collected within 3-4 weeks after infection. Performed By: #### 7 3752-8 #### [facility] CLIA [id number] [address] [place] [address] [place] T. gondii IgM Qn (S)on 01-17 TOXO IGM QUAL Negative Normal Negative [facility] Comment on above: Order Comment: Sherine peter Type: BLOOD SPECIMEN Ordering Facility: [facility] Address: [address] [place] [address] Result Comment: No s erological evidence of recent exposure to Toxoplasma gondii. Performed By: #### 7 3752-8 #### [facility] CLIA [id number] [address] [place] [address] [place] TSH SerPl-aCncon 01-17-2025 TSH Qn 1.170 m[IU]/L Normal 0.270-4.200 [facility] Comment on above: Order Comment: Speci men Type: BLOOD SPECIMENOrdering Facility: [facility] Address: [address] [place] [address] Result Comment: If t he patient is , TSH reference range varies by gestational period: First Trimester (weeks 9-12): 0.180-2.990 mIU/L Second Trimester: 0.110-3.980 mIU/L Third Trimester: 0.480-4.710 mIU/L Tino Fish et al. A Practical Approach for the Verifications and Determination of Site- and Trimester-Specific Reference Intervals for Thyroid Function tests in . Thyroid, 2019:29:3:412-420. George Osullivan, et al. 2017 Guidelines of the [place] Thy[employer] for the Diagnosis and Management of Thyroid Disease during and the . Thyroid, 2017:27:3:315-389. Performed By: #### 3 016-3 ####[facility] LABCLIA [id number] [facility] RODAS[address] STATES OF [facility] CNPCarlee 01-16-2025 CNPN Telephone (CHPDMN) DONA GUTIERREZ ([id number]) 1990 F Date Time Provider Department 01/16/25 JOSSY LARA CHPDMN During your visit today, we recorded the following information about you: Candida Moser 01/16/2025 3:48 PM Addendum Dona called the office to schedule echo follow up with Dr. Lara. Holding echo slot with Dr. Lara in [place] on 01/21 at 11am. Message sent to [...] Status:Closed by CANDIDA MOSER on 01/16/25 Normal [facility] CNCOon 01-03-2025 CNCO Letter Text Normal [facility] CNPNon 01-03-2025 CNPN Telephone (OBGYWM) DONA GUTIERREZ ([id number]) 1990 F Date Time Provider Department 01/03/25 JENSEN, ZINA OBGYWM During your visit today, we recorded the following information about you: Patricia Grider RN 01/03/2025 10:00 AM Signed In order to request pt's medical records from [facility], they need another form filled out in addition to the [facility] Medical Record Release form that the pt filled out. Letter (explaining this to the pt) typed up and the required form from [facility] and the [facility] Medical Record Release form mailed to pt per Shayy Gomez. Allergies As of Date: 01/03/2025 Noted Allergy Reaction AMOXICILLIN 12/07/2022 2 - Rash LATEX 12/07/2022 7 - Swelling Date Reviewed: 01/01/2025 Reviewed by: Valente Cotton MA - Fully Assessed Reason for Visit: Medical record release from [facility] [Other] Prescriptions as of 01/17/2025 - CHOLINE [...] Status:Closed by PATRICIA GRIDER on 01/03/25 Normal [facility] CBC W Auto Differential pane l (Bld)on 01-01-2025 Basophils (Bld) [#/Vol] 0.04 10*3/uL Normal <0.11 [facility] Comment on above: Order Comment: Speci men Type: BLOOD SPECIMENOrdering Facility: [facility] Address: [address] [place] [address] Performed By: #### 5 7021-8 ####[facility] MILLWFLLIA [id number] [place] [address] [place] Basophils/100 WBC (Bld) 0.5 % Normal [facility] Comment on above: Order Comment: Speci men Type: BLOOD SPECIMENOrdering Facility: [facility] Address: [address] [place] [address] Performed By: #### 5 7021-8 ####[facility] [id number] [place] [address] [place] Differential cell count method Nom (Bld) Auto Normal [facility] Comment on above: Order Comment: Speci men Type: BLOOD SPECIMENOrdering Facility: [facility] Address: [address] [place] [address] Performed By: #### 5 7021-8 ####[facility] [id number] [place] [address] [place] Eosinophils (Bld) [#/Vol] 0.19 10*3/uL Normal <0.46 [facility] Comment on above: Order Comment: Speci men Type: BLOOD SPECIMENOrdering Facility: [facility] Address: [address] [place] [address] Performed By: #### 5 7021-8 ####[facility] [id number] [place] [address] [place] Eosinophils/100 WBC (Bld) 2.2 % Normal [facility] Comment on above: Order Comment: Speci men Type: BLOOD SPECIMENOrdering Facility: [facility] Address: [address] [place] [address] Performed By: #### 5 7021-8 ####[facility] ALEXUSCECILNCAIDEA [id number] [place] [address] [place] Erythrocyte distribution width (RBC) [Ratio] 12.4 % Normal 11.5-15.0 [facility] Comment on above: Order Comment: Speci men Type: BLOOD SPECIMENOrdering Facility: [facility] Address: [address] [place] [address] Performed By: #### 5 7021-8 ####[facility] [id number] [place] [address] [place] Hematocrit (Bld) [Volume fraction] 36.6 % Normal 36.0-46.0 [facility] Comment on above: Order Comment: Speci men Type: BLOOD SPECIMENOrdering Facility: [facility] Address: [address] [place] [address] Performed By: #### 5 7021-8 ####[facility] [id number] [place] [address] [place] Hemoglobin (Bld) [Mass/Vol] 12.0 g/dL Normal 11.5-15.5 [facility] Comment on above: Order Comment: Speci men Type: BLOOD SPECIMENOrdering Facility: [facility] Address: [address] [place] [address] Performed By: #### 5 7021-8 ####[facility] [id number] [place] [address] [place] Immature granulocytes (Bld) [#/Vol] 0.06 10*3/uL Normal <0.10 [facility] Comment on above: Order Comment: Speci men Type: BLOOD SPECIMENOrdering Facility: [facility] Address: [address] [place] [address] Performed By: #### 5 7021-8 ####[facility] HOSPITALDEVAUGHNLIA [id number] [place] [address] [place] Immature granulocytes/100 WBC (Bld) 0.7 % Normal [facility] Comment on above: Order Comment: Speci men Type: BLOOD SPECIMENOrdering Facility: [facility] Address: [address] [place] [address] Performed By: #### 5 7021-8 ####[facility] [id number] [place] [address] [place] Lymphocytes (Bld) [#/Vol] 1.39 10*3/uL Normal 1.00-4.00 [facility] Comment on above: Order Comment: Speci men Type: BLOOD SPECIMENOrdering Facility: [facility] Address: [address] [place] [address] Performed By: #### 5 7021-8 ####[facility] [id number] [place] [address] [place] Lymphocytes/100 WBC (Bld) 15.8 % Normal [facility] Comment on above: Order Comment: Speci men Type: BLOOD SPECIMENOrdering Facility: [facility] Address: [address] [place] [address] Performed By: #### 5 7021-8 ####[facility] [id number] [place] [address] [place] MCH (RBC) [Entitic mass] 29.1 pg Normal 26.0-34.0 [facility] Comment on above: Order Comment: Speci men Type: BLOOD SPECIMENOrdering Facility: [facility] Address: [address] [place] [address] Performed By: #### 5 7021-8 ####[facility] HOSPITALNCLI [id number] [place] [address] [place] MCHC (RBC) [Mass/Vol] 32.8 g/dL Normal 30.5-36.0 [facility] Comment on above: Order Comment: Speci men Type: BLOOD SPECIMENOrdering Facility: [facility] Address: [address] [place] [address] Performed By: #### 5 7021-8 ####[facility]PITALNCINTERMOUNTAIN HEALTHCARE [id number] [place] [address] [place] MCV (RBC) [Entitic vol] 88.6 fL Normal 80.0-100.0 [facility] Comment on above: Order Comment: Speci men Type: BLOOD SPECIMENOrdering Facility: [facility] Address: [address] [place] [address] Performed By: #### 5 7021-8 ####[facility]OS[facility]ITALNCINTERMOUNTAIN HEALTHCARE [id number] [place] [address] [place] Monocytes (Bld) [#/Vol] 0.36 10*3/uL Normal <0.87 [facility] Comment on above: Order Comment: Speci men Type: BLOOD SPECIMENOrdering Facility: [facility] Address: [address] [place] [address] Performed By: #### 5 7021-8 ####[facility] HOSPITALNCLI [id number] [place] [address] [place] Monocytes/100 WBC (Bld) 4.1 % Normal [facility] Comment on above: Order Comment: Speci men Type: BLOOD SPECIMENOrdering Facility: [facility] Address: [address] [place] [address] Performed By: #### 5 7021-8 ####[facility] [id number] [place] [address] [place] Neutrophils (Bld) [#/Vol] 6.76 10*3/uL Normal 1.45-7.50 [facility] Comment on above: Order Comment: Speci men Type: BLOOD SPECIMENOrdering Facility: [facility] Address: [facility] [place] [address] Performed By: #### 5 7021-8 ####[facility] ANGELWDEVAUGHNLIA [id number] [place] [address] [place] [facility] Neutrophils/100 WBC (Bld) 76.7 % Normal [facility] Comment on above: Order Comment: Speci men Type: BLOOD SPECIMENOrdering Facility: [facility] Address: [address] [place] [address] Performed By: #### 5 7021-8 ####[facility]ITALDEVAUGHNLIA [id number] [place] [address] [place] Nucleated RBC (Bld) [#/Vol] 10*3/uL Normal <0.01 [facility] Comment on above: Order Comment: Speci men Type: BLOOD SPECIMENOrdering Facility: [facility] Address: [address] [place] [address] Performed By: #### 5 7021-8 ####[facility] HOS[facility]ITALNCLIA [id number] [place] [address] [place] Nucleated RBC/100 WBC (Bld) [Ratio] 0.0 /100 WBC Normal [facility] Comment on above: Order Comment: Speci men Type: BLOOD SPECIMENOrdering Facility: [facility] Address: [address] [place] [address] Performed By: #### 5 7021-8 ####[facility] HOS[facility]ITALNCLIA [id number] [place] [address] [place] Platelet mean volume (Bld) [Entitic vol] 11.0 fL Normal 9.0-12.7 [facility] Comment on above: Order Comment: Speci men Type: BLOOD SPECIMENOrdering Facility: [facility] Address: [address] [place] [address] Performed By: #### 5 7021-8 ####[facility] HOSPITALLIA [id number] [place] [address] [place] Platelets (Bld) [#/Vol] 160 10*3/uL Normal 150-400 [facility] Comment on above: Order Comment: Speci men Type: BLOOD SPECIMENOrdering Facility: [facility] Address: [address] [place] [address] Performed By: #### 5 7021-8 ####[facility] [id number] [place] [address] [place] RBC (Bld) [#/Vol] 4.13 10*6/uL Normal 3.90-5.20 [facility] Comment on above: Order Comment: Speci men Type: BLOOD SPECIMENOrdering Facility: [facility] Address: [address] [place] [address] Performed By: #### 5 7021-8 ####[facility] [id number] [place] [address] [place] WBC (Bld) [#/Vol] 8.80 10*3/uL Normal 3.70-11.00 [facility] Comment on above: Order Comment: Speci men Type: BLOOD SPECIMENOrdering Facility: [facility] Address: [address] [place] [address] Performed By: #### 5 7021-8 ####[facility] [id number] [place] [address] [place] GESTATIONAL GLUCOSE SCREEN, 1-HOUR, 50 GRAM, NON-FASTINGon 01-01-2025 Glucose [Mass/Vol] 108 mg/dL Normal 74-134 [facility] Comment on above: Order Comment: Speci men Type: BLOOD SPECIMEN [facility] Address: [address] [place] [address] Result Comment: [facility] Congress of Obstetricians and Gynecologists (Emily/Merritt) guidelines state a gestational diabetes mellitus positive screen is made, in women not previously diagnosed with overt diabetes, when the 1 hr plasma glucose level is equal to or above 140 mg/dL. [facility] Chapter Relations Administrator and [facility] [place] recommends a 135 mg/dL cutoff. Performed By: #### G LTGST #### [facility] CLIA [id number] [place] [address] [place] Reagin and Treponema pallidu m IgG and IgM [Interp]on 01-01-2025 T. pallidum IgG+IgM IA Ql (S) Non-Reactive Normal Nonreactive [facility] Comment on above: Order Comment: Speci men Type: BLOOD SPECIMEN [facility] Address: [address] [place] [address] Performed By: #### 7 3752-8 #### [facility] CLIA [id number] [address] [place] [address] [place] Reagin+T pallidum IgG+IgM Se rPl-Impon 01-01-2025 Reagin and Treponema pallidum IgG and IgM [Interp] Cannot exclude recent Treponemal infection if specimen collected within 7-10 days after appearance of suspect lesions or 2-3 weeks after an exposure. Clinical correlation is required. Normal [facility] Comment on above: Order Comment: Speci men Type: BLOOD SPECIMEN [facility] Address: [address] [place] [address] Performed By: #### 7 3752-8 #### [facility] CLIA [id number] [address] [place] [address] [place] TYPE + SCREEN PRENATALon ABO O Normal [facility] Comment on above: Order Comment: Deepai rome Type: BLOOD SPECIMENOrdering Facility: [facility] Address: [address] [place] [address] Performed By: #### T SPN ####[facility] BLOOD BANKCLIA [id number] [place] [address] [place] Rh Nom (Bld) Negative Normal [facility] Comment on above: Order Comment: Speci men Type: BLOOD SPECIMENOrdering Facility: [facility] Address: [address] [place] [address] Performed By: #### T SPN ####[facility] BLOOD BANKCLIA [id number] [place] [address] [place] [facility] TYPE AND SCREEN EXPIRATION 01/04/2025 23:59 Normal [facility] Comment on above: Order Comment: Speci men Type: BLOOD SPECIMENOrdering Facility: [facility] Address: [address] [place] [address] Performed By: #### T SPN ####[facility] BLOOD BANKCLIA [id number] [address] FETALon 11-19-2024 + -- ------+-+ Pediatric Cardiology Echocardiogram Report + ------+-+ NAME: MRS. DONA GUTIERREZ : 1990 PT ID#: [id number] Age: 34 years Sex: F STUDY DATE: 11/19/2024 9:27:40 AM SHANTI: 02/21/2025 GA: 22w2d Image Quality: The images were of adequate diagnostic quality. Referring Physician: Zina Jensen Diagnosing Physician: Jossy Lara Textile Machine Maintenance Mechanic: Marlee Perez RDMS, RDCS 2nd Textile Machine Maintenance Mechanic: Diagnosis: [id number] abnormality and damage, single fetus or unspecified Procedure Code: 91613, 17300, 52472 Echo, Complete (w/Doppler and color) Exam Location: [facility] (). Indications: Evaluate cardiac anatomy and function. [...] rate and rhythm. HR 143 bpm Mechanical NV 102 ms Segmental Anatomy, Cardiac Position and [...] on 11/19/2024 at 10:35:52 AM Final CC [employer] [facility] Image : [id number] [email or web address] See Link below for Image Normal [facility] Examination level ultrasound on 11-08-2024 Indication [...] 14 oz EFW by: Hadlock (HC-AC-FL) Extended Channel Cementer 6.0 mm CM 3.7 mm 10% Nicolaides [...] normal LVOT view: normal 3-vessel view: normal 1-lxwppd-thcdqok view: normal Heart / Thorax Situs: situs [...] Read By: Maritza Mckeon M.D. MATERNAL MEDICINE [facility] Radiology Study observation (narrative) [facility] OB Triage Physician Noteon 0 11-08-2024 OB Triage Physician Note [facility] Medical Records Department [address] [place] [address] OB Triage Physician Note 11/08/24 1607 MR#: [id number] Acct: [id number] Name: DONA GUTIERREZ Rep #: [id number] : 1990 34 From: Peter eTresa DO PCP: Dr. Tushar Centeno MD Status:DEP CLI Y Location: [facility] HPI - General General Date of Admission: [...] MD; Dr. Peter Teresa DO Signed Normal [facility] Urine Cultureon 11-05-2024 URC Culture exhibits no growth. Normal [facility] Comment on above: Performed By: #### L 400.2010, #### [facility] [address] [place], [address] Urinalysis, Routine (Dipstic k)on 11-04-2024 BILIRUBIN URINE Negative Normal Negative [facility] Comment on above: Order Comment: CLEAN CATCH Performed By: #### L 400.2010, #### [facility] [address] [place], [address] Clarity (U) Clear Normal Clear [facility] Comment on above: Order Comment: CLEAN CATCH Performed By: #### L 400.2010, #### [facility] [address] [place], [address] Color (U) Yellow Normal Yellow [facility] Comment on above: Order Comment: CLEAN CATCH Performed By: #### L 400.2010, #### [facility] [address] [place], [address] GLUCOSE, UR Normal Normal Normal [facility] Comment on above: Order Comment: CLEAN CATCH Performed By: #### L 400.2010, #### [facility] [address] [place], [address] KETONE UR Negative Normal Negative [facility] Comment on above: Order Comment: CLEAN CATCH Performed By: #### L 400.2010, #### [facility] [address] [place], [address] LEUK ESTERASE Negative Normal Negative [facility] Comment on above: Order Comment: CLEAN CATCH Performed By: #### L 400.2010, #### [facility] [address] [place], [address] Nitrite Ql (U) Negative Normal Negative [facility] Comment on above: Order Comment: CLEAN CATCH Performed By: #### L 400.2010, #### [facility] [address] [place], [address] OCCULT BLOOD-UR Negative Normal Negative [facility] Comment on above: Order Comment: CLEAN CATCH Performed By: #### L 400.2010, #### [facility] [address] [place], [address] pH UR 7.0 Normal 5.0 - 8.0 [facility] Comment on above: Order Comment: CLEAN CATCH Performed By: #### L 400.2010, #### [facility] [address] [place], [address] PROT DIPSTX Negative Normal Negative [facility] Comment on above: Order Comment: CLEAN CATCH Performed By: #### L 400.2010, #### [facility] [address] [place], [address] SP.GR. DIPSTX 1.010 Normal 1.002-1.030 [facility] Comment on above: Order Comment: CLEAN CATCH Performed By: #### L 400.2010, #### [facility] [address] [place], [address] UROBILI Normal Normal Normal [facility] Comment on above: Order Comment: CLEAN CATCH Performed By: #### L 400.2010, #### [facility] [address] [place], [address] nuchal translucency me asured by USon 09-16-2024 Indication First trimester anatomic survey Impression REMOTE READ The patient is referred for a first trimester anatomy scan including nuchal translucency measurement as clinically indicated. - Single, live, intrauterine . - [place] rump length measurement is consistent with the [...] view: normal 4-chamber view with color: normal 8-jinypv-nmsrptk view: normal Abdominal cord insertion: normal Stomach: normal Kidneys: normal Bladder: normal Color doppler of perivesical umbilical arteries: normal Vertebral alignment: normal Arms: normal Hands: normal Legs: normal Feet: normal Maternal Structures Uterus / Cervix Uterus: Visualized Uterus length 142 mm Uterus width 102 mm Uterus height 81 mm Uterus Vol 613.1 cm Other: [id number] subchorionic hematoma Ovaries / Tubes / Adnexa Rt ovary: Visualized Rt ovary D1 30 mm Rt ovary D2 23 mm Rt ovary D3 18 mm Rt ovary Vol 6.4 cm Lt ovary: Not visualized Performed By: Kristen Thomas RDMS, RVT Read By: Keyon Gonzalez M.D. MATERNAL MEDICINE [facility] nuchal translucency me asured by Elijah 09-13-2024 Radiology Study observation (narrative) [facility] Bacteria identified Cx Nom ( U)Ordered By: Lester Mckenzie on 09-04-2024 Interpretation and review of laboratory results Normal [facility] URINE CULTUREOrdered By: Dami Mckenzie on 09-04-2024 Bacteria identified Cx Nom (U) No growth (<1,000 CFU/ml) [facility] Bacteria Ur Culton Bacteria identified Cx Nom (U) CULTURE, URINE: No growth (<1,000 CFU/ml) Normal [facility] Comment on above: Performed By: #### 6 30-4 ####[facility] LABCLIA [id number] [place] [address] [place] UA DIP, URINE (POC)on 2023 BILIRUBIN UA (POCT) Negative Negative [facility] CLARITY UA (POCT) Clear [facility] COLOR UA (POCT) Yellow [facility] GLUCOSE UA (POCT) Negative Negative mg/dL [facility] Hemoglobin Ql (U) Negative Negative [facility] KETONE UA (POCT) Negative Negative mg/dL [facility] LEUKOCYTES UA (POCT) Negative Negative [facility] NITRITE UA (POCT) Negative Negative [facility] PH UA (POCT) 7.0 4.5 - 8.[address] [facility] Protein Ql (U) Negative Negative mg/dL [facility] SPECIFIC GRAVITY UA (POCT) 1.015 1.005 - 1.[address] [facility] UROBILINOGEN UA (POCT) 0.2 Normal E.U./dL [facility] Location:[facility], [address] , [place], [address] [facility] POINT OF CARE [facility] [place] 09-02-2024 FLOYDN Telephone (OBGYWM) DONA GUTIERREZ ([id number]) 1990 F Date Time Provider Department 09/02/24 [...] Status:Closed by VICKY ENGEL on 09/02/24 Normal [facility] BACTERIAL VAGINOSIS NAATon 1 10-13-2023 Lactobacillus crispatus+gasseri+suzanne senii + Gardnerella vaginalis + Atopobium vaginae rRNA KIRILL+probe Ql (Vag fld) Not detected Normal Not detected [facility] Comment on above: Order Comment: Speci men Type: SWABOrdering Facility: [facility] Address: [address] [place] [address] Performed By: #### B VAMP, CVTV ####[facility] LABCLIA [id number] [place] [address] [place] Bacteria Ur Culton [...] technique or straight catheterization for???urine???collecti on. Normal [facility] Comment on above: Performed By: #### 6 30-4 ####[facility] LABCLIA [id number] [place] [address] [place] C. trachomatis+N. gonorrhoea e DNA KIRILL+probe Ql (Unsp spec)on 08-12-2024 C. trachomatis rRNA KIRILL+probe Ql (Unsp spec) Not detected Normal Not detected [facility] Comment on above: Order Comment: Speci men Type: BLOOD SPECIMEN [facility] Address: [address] [place] [address] Performed By: #### 7 3752-8 #### [facility] CLIA [id number] [address] [place] [address] [place] N. gonorrhoeae rRNA KIRILL+probe Ql (Unsp spec) Not detected Normal Not detected [facility] Comment on above: Order Comment: Speci men Type: BLOOD SPECIMEN [facility] Address: [address] [place] [address] Performed By: #### 7 3752-8 #### [facility] CLIA [id number] [address] [place] [address] [place] STEVE/TRICHOMONAS NAATon 1 10-13-2023 C. glabrata RNA KIRILL+probe Ql (Vag fld) Not detected Normal Not detected [facility] Comment on above: Order Comment: Speci men Type: SWABOrdering Facility: [facility] Address: [address] [place] [address] Performed By: #### B VAMP, CVTV ####[facility] LABCLIA [id number] [place] [address] [place] Steve sp DNA KIRILL+probe Ql (Vag fld) Not detected Normal Not detected [facility] Comment on above: Order Comment: Speci men Type: SWABOrdering Facility: [facility] Address: [address] [place] [address] Result Comment: The Steve species group target includes C. albicans, C. tropicalis, C. parapsilosis, and C. dubliniensis. Performed By: #### B VAMP, CVTV ####[facility] LABCLIA [id number] [place] [address] [place] T. vaginalis DNA KIRILL+probe Ql (Unsp spec) Not detected Normal Not detected [facility] Comment on above: Order Comment: Speci men Type: SWABOrdering Facility: [facility] Address: [address] [place] [address] Performed By: #### B VAMP, CVTV ####[facility] LABCLIA [id number] [place] [address] [place] CBC W Auto Differential pane l (Bld)on 08-12-2024 Basophils (Bld) [#/Vol] 0.06 10*3/uL Normal <0.11 [facility] Comment on above: Order Comment: Speci men Type: BLOOD SPECIMENOrdering Facility: [facility] Address: [address] [place] [address] Performed By: #### 5 7021-8 ####[facility]ITALWNCLIA [id number] [place] [address] [place] Basophils/100 WBC (Bld) 0.5 % Normal [facility] Comment on above: Order Comment: Speci men Type: BLOOD SPECIMENOrdering Facility: [facility] Address: [address] [place] [address] Performed By: #### 5 7021-8 ####[facility]ITALWNCLIA [id number] [place] [address] [place] Differential cell count method Nom (Bld) Auto Normal [facility] Comment on above: Order Comment: Speci men Type: BLOOD SPECIMENOrdering Facility: [facility] Address: [address] [place] [address] Performed By: #### 5 7021-8 ####[facility] MILLWNCLIA [id number] [place] [address] [place] Eosinophils (Bld) [#/Vol] 0.11 10*3/uL Normal <0.46 [facility] Comment on above: Order Comment: Speci men Type: BLOOD SPECIMENOrdering Facility: [facility] Address: [address] [place] [address] Performed By: #### 5 7021-8 ####[facility] MILLWNCLIA [id number] [place] [address] [place] Eosinophils/100 WBC (Bld) 0.9 % Normal [facility] Comment on above: Order Comment: Speci men Type: BLOOD SPECIMENOrdering Facility: [facility] Address: [address] [place] [address] Performed By: #### 5 7021-8 ####[facility]PITALLIA [id number] [place] [address] [place] Erythrocyte distribution width (RBC) [Ratio] 12.5 % Normal 11.5-15.0 [facility] Comment on above: Order Comment: Speci men Type: BLOOD SPECIMENOrdering Facility: [facility] Address: [address] [place] [address] Performed By: #### 5 7021-8 ####[facility]IT[facility] [id number] [place] [address] [place] Hematocrit (Bld) [Volume fraction] 41.9 % Normal 36.0-46.0 [facility] Comment on above: Order Comment: Speci men Type: BLOOD SPECIMENOrdering Facility: [facility] Address: [address] [place] [address] Performed By: #### 5 7021-8 ####[facility] [id number] [place] [address] [place] Hemoglobin (Bld) [Mass/Vol] 13.8 g/dL Normal 11.5-15.5 [facility] Comment on above: Order Comment: Speci men Type: BLOOD SPECIMENOrdering Facility: [facility] Address: [address] [place] [address] Performed By: #### 5 7021-8 ####[facility] [id number] [place] [address] [place] Immature granulocytes (Bld) [#/Vol] 0.04 10*3/uL Normal <0.10 [facility] Comment on above: Order Comment: Speci men Type: BLOOD SPECIMENOrdering Facility: [facility] Address: [address] [place] [address] Performed By: #### 5 7021-8 ####[facility]ITALNCLI [id number] [place] [address] [place] Immature granulocytes/100 WBC (Bld) 0.3 % Normal [facility] Comment on above: Order Comment: Speci men Type: BLOOD SPECIMENOrdering Facility: [facility] Address: [address] [place] [address] Performed By: #### 5 7021-8 ####[facility]OSPITALNCA [id number] [place] [address] [place] Lymphocytes (Bld) [#/Vol] 1.82 10*3/uL Normal 1.00-4.00 [facility] Comment on above: Order Comment: Speci men Type: BLOOD SPECIMENOrdering Facility: [facility] Address: [address] [place] [address] Performed By: #### 5 7021-8 ####[facility] [id number] [place] [address] [place] Lymphocytes/100 WBC (Bld) 15.5 % Normal [facility] Comment on above: Order Comment: Speci men Type: BLOOD SPECIMENOrdering Facility: [facility] Address: [address] [place] [address] Performed By: #### 5 7021-8 ####[facility] HOSPITALNCLI [id number] [place] [address] [place] MCH (RBC) [Entitic mass] 28.8 pg Normal 26.0-34.0 [facility] Comment on above: Order Comment: Speci men Type: BLOOD SPECIMENOrdering Facility: [facility] Address: [address] [place] [address] Performed By: #### 5 7021-8 ####[facility] [id number] [place] [address] [place] MCHC (RBC) [Mass/Vol] 32.9 g/dL Normal 30.5-36.0 [facility] Comment on above: Order Comment: Speci men Type: BLOOD SPECIMENOrdering Facility: [facility] Address: [address] [place] [address] Performed By: #### 5 7021-8 ####[facility] ALEXUSSouravNCYAKOV [id number] [place] [address] [place] MCV (RBC) [Entitic vol] 87.3 fL Normal 80.0-100.0 [facility] Comment on above: Order Comment: Speci men Type: BLOOD SPECIMENOrdering Facility: [facility] Address: [address] [place] [address] Performed By: #### 5 7021-8 ####[facility]OSPITALNCLIAngel [id number] [place] [address] [place] Monocytes (Bld) [#/Vol] 0.51 10*3/uL Normal <0.87 [facility] Comment on above: Order Comment: Speci men Type: BLOOD SPECIMENOrdering Facility: [facility] Address: [address] [place] [address] Performed By: #### 5 7021-8 ####[facility]ITALNCLIA [id number] [place] [address] [place] Monocytes/100 WBC (Bld) 4.4 % Normal [facility] Comment on above: Order Comment: Speci men Type: BLOOD SPECIMENOrdering Facility: [facility] Address: [address] [place] [address] Performed By: #### 5 7021-8 ####[facility]ITALNCLIA [id number] [place] [address] [place] Neutrophils (Bld) [#/Vol] 9.18 10*3/uL High 1.45-7.50 [facility] Comment on above: Order Comment: Speci men Type: BLOOD SPECIMENOrdering Facility: [facility] Address: [address] [place] [address] Performed By: #### 5 7021-8 ####[facility] MILLWNCLIA [id number] [place] [address] [place] Neutrophils/100 WBC (Bld) 78.4 % Normal [facility] Comment on above: Order Comment: Speci men Type: BLOOD SPECIMENOrdering Facility: [facility] Address: [address] [place] [address] Performed By: #### 5 7021-8 ####[facility]ITALLIA [id number] [place] [address] [place] Nucleated RBC (Bld) [#/Vol] 10*3/uL Normal <0.01 [facility] Comment on above: Order Comment: Speci men Type: BLOOD SPECIMENOrdering Facility: [facility] Address: [address] [place] [address] Performed By: #### 5 7021-8 ####[facility] [id number] [place] [address] [place] Nucleated RBC/100 WBC (Bld) [Ratio] 0.0 /100 WBC Normal [facility] Comment on above: Order Comment: Speci men Type: BLOOD SPECIMENOrdering Facility: [facility] Address: [address] [place] [address] Performed By: #### 5 7021-8 ####[facility] [id number] [place] [address] [place] Platelet mean volume (Bld) [Entitic vol] 11.2 fL Normal 9.0-12.7 [facility] Comment on above: Order Comment: Speci men Type: BLOOD SPECIMENOrdering Facility: [facility] Address: [address] [place] [address] Performed By: #### 5 7021-8 ####[facility]OS[facility]ITALNCLI [id number] [place] [address] [place] Platelets (Bld) [#/Vol] 201 10*3/uL Normal 150-400 [facility] Comment on above: Order Comment: Speci men Type: BLOOD SPECIMENOrdering Facility: [facility] Address: [address] [place] [address] Performed By: #### 5 7021-8 ####[facility]ITALNCLIA [id number] [place] [address] [place] RBC (Bld) [#/Vol] 4.80 10*6/uL Normal 3.90-5.20 [facility] Comment on above: Order Comment: Speci men Type: BLOOD SPECIMENOrdering Facility: [facility] Address: [address] [place] [address] Performed By: #### 5 7021-8 ####[facility]ITALNCA [id number] [place] [address] [place] WBC (Bld) [#/Vol] 11.72 10*3/uL High 3.70-11.00 [facility] Comment on above: Order Comment: Speci men Type: BLOOD SPECIMENOrdering Facility: [facility] Address: [address] [place] [address] Performed By: #### 5 7021-8 ####[facility]OSPITALLIA [id number] [place] [address] [place] HBV surface Ag Ql (S)on Interpretation and review of laboratory results Normal [facility] HBV surface Ag Ser Qlon HBV surface Ag Ql (S) Negative Normal Negative [facility] Comment on above: Order Comment: Speci men Type: BLOOD SPECIMENOrdering Facility: [facility] Address: [address] [place] [address] Performed By: #### 3 1201-7, 09409-2, 5195-3 ####[facility] LABCLIA [id number] [place] [address] [place] HCV Ab Ql (S)on 08-12-2024 Interpretation and review of laboratory results Normal [facility] HCV Ab Ser Qlon 08-12-2024 HCV Ab Ql (S) Negative Normal Negative [facility] Comment on above: Order Comment: Speci rome Type: BLOOD SPECIMENOrdering Facility: [facility] Address: [address] [place] [address] Result Comment: The result suggests no evidence of active infection with Hepatitis C virus. Should recent infection be suspected, repeat testing may be considered 4-6 weeks after this draw. Performed By: #### 1 6128-1 ####[facility] LABCLIA [id number] [place] [address] [place] HEPATITIS B SURFACE ANTIGENo n 08-12-2024 HBV surface Ag Ql (S) Negative Negative [facility] HEPATITIS C ANTIBODY IA WITH CONFIRMATIONon 08-12-2024 HCV Ab Ql (S) Negative Negative [facility] Comment on above: The result suggests no evidence of active infection with Hepatitis C virus. Should recent infection be suspected, repeat testing may be considered 4-6 weeks after this draw. HGB ELECTROPHORESIS FOR EVAL (LAB ORDER)on 08-12-2024 Hemoglobin A (Bld) [Mass fraction] 97.4 % Normal 96.2-98.0 [facility] Comment on above: Order Comment: Sherine peter Type: BLOOD SPECIMEN [facility] Address: [address] [place] [address] Performed By: #### 7 3752-8 #### [facility] CLIA [id number] [address] [place] [address] [place] Hemoglobin A2 (Bld) [Mass fraction] 2.6 % Normal 2.0-3.1 [facility] Comment on above: Order Comment: Sherine peter Type: BLOOD SPECIMEN [facility] Address: [address] [place] [address] Performed By: #### 7 3752-8 #### [facility] CLIA [id number] [address] [place] [address] [place] Hemoglobin Unsp Elph (Bld) [Mass fraction] No abnormal hemoglobin identified. Normal No abnormal hemoglobin identified. [facility] Comment on above: Order Comment: Speci men Type: BLOOD SPECIMEN [facility] Address: [address] [place] [address] Performed By: #### 7 3752-8 #### [facility] CLIA [id number] [address] [place] [address] [place] HGB EVALUATION CASCADE INTER Luis 08-12-2024 Hemoglobin pattern (Bld) [Interp] Reviewed by Kimberli Waldron M.D., Ph.D Normal [facility] Comment on above: Order Comment: Speci men Type: BLOOD SPECIMEN [facility] Address: [address] [place] [address] Performed By: #### 7 3752-8 #### [facility] CLIA [id number] [address] [place] [address] [place] INTERPRETATION (HGB EVAL) Normal [facility] Comment on above: Order Comment: Speci men Type: BLOOD SPECIMEN [facility] Address: [address] [place] [address] Result Comment: Hemo globins were analyzed by capillary electrophoresis and CBC red cell parameters were reviewed. No abnormal hemoglobin is identified. There is a normal hemoglobin capillary electrophoresis pattern. Performed By: #### 7 3752-8 #### [facility] CLIA [id number] [address] [place] [address] [place] HIGH RISK HUMAN PAPILLOMA CAROLINE (HPV), PCR FOR DETECTION AND GENOTYPINGon 08-12-2024 HPV 16 Ag Ql (Unsp spec) Not detected Normal Not detected [facility] Comment on above: Order Comment: Speci men Type: FLUID SPECIMENOrdering Facility: [facility] Address: [address] [place] [address] Performed By: #### H PVHRT ####[facility] LABCLIA [id number] [place] [address] [place] HPV 18 Ag Ql (Unsp spec) Not detected Normal Not detected [facility] Comment on above: Order Comment: Speci men Type: FLUID SPECIMENOrdering Facility: [facility] Address: [address] [place] [address] Performed By: #### H PVHRT ####[facility] LABIA [id number] [place] [address] [place] HPV 31+33+35+39+45+51+52+ 56+58+59+66+68 DNA KIRILL+probe Ql (Cvx) Not detected Normal Not detected [facility] Comment on above: Order Comment: Speci men Type: FLUID SPECIMENOrdering Facility: [facility] Address: [address] [place] [address] Result Comment: High Risk HPV Other Type includes HPV types 31, 33, 35, 39, 45, 51, 52, 56, 58, 59, 66 and 68. Performed By: #### H PVHRT ####[facility] LABIA [id number] [place] [address] [place] HIV 1+2 Ab IA Qlon 4 HIV 1 and 2 Ab IA.rapid Nom (S/P/Bld) [facility] Comment on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 Phone: [facility] 03-06-2025 14:15-0400 Diastolic blood pressure 72 mm[Hg] Livia Denny MD Work Phone: [facility] 03-06-2025 14:15-0400 Heart rate 87 /min Livia Denny MD Work Phone: [facility] 03-06-2025 14:15-0400 SaO2% (BldA) [Mass fraction] 100 % Livia Denny MD Work Phone: [facility] 03-06-2025 14:15-0400 Systolic blood pressure 115 mm[Hg] Livia Denny MD Work Phone: [facility] 03-05-2025 15:24-0400 Body mass index (BMI) [Ratio] 24.69 kg/m2 Valerio Leon MD Work Phone: [facility] 03-05-2025 15:24-0400 Body weight 69.4 kg Valerio Leon MD Work Phone: [facility] 03-05-2025 15:24-0400 Diastolic blood pressure 70 mm[Hg] Valerio Leon MD Work Phone: [facility] 03-05-2025 15:24-0400 Systolic blood pressure 128 mm[Hg] Valerio Leon MD Work Phone: [facility] 02-24-2025 16:14-0400 Body mass index (BMI) [Ratio] 24.95 kg/m2 Peter Teresa MD Work Phone: [facility] 02-24-2025 16:14-0400 Body weight 70.13 kg Peter Teresa MD Work Phone: [facility] 02-24-2025 16:14-0400 Diastolic blood pressure 76 mm[Hg] Peter Teresa MD Work Phone: [facility] 02-24-2025 16:14-0400 Systolic blood pressure 120 mm[Hg] Peter Teresa MD Work Phone: [facility] 02-10-2025 13:52-0400 Body mass index (BMI) [Ratio] 24.53 kg/m2 Vicky Engel WOMEN'S SOCCER COACH.CNM Work Phone: [facility] 02-10-2025 13:52-0400 Body weight 68.95 kg Vicky Engel WOMEN'S SOCCER COACH .CNM Work Phone: [facility] 02-10-2025 13:52-0400 Diastolic blood pressure 60 mm[Hg] Vicky Engel WOM[employer]'S SOCCER COACH.CNM Work Phone: [facility] 02-10-2025 13:52-0400 Systolic blood pressure 118 mm[Hg] Vicky Plotdylon WOM[employer]'S SOCCER COACH.CNM Work Phone: [facility] 01-31-2025 16:06-0400 Body mass index (BMI) [Ratio] 24.21 kg/m2 Hanna Gonzales MD Work Phone: [facility] 01-31-2025 16:06-0400 Body weight 68.04 kg Hanna gloria MD Work Phone: [facility] 01-31-2025 16:06-0400 Diastolic blood pressure 60 mm[Hg] Hanna Gonzales MD Work Phone: [facility] 01-31-2025 16:06-0400 Systolic blood pressure 122 mm[Hg] Hanna Gonzales MD Work Phone: [facility] 01-17-2025 15:41-0400 Body mass index (BMI) [Ratio] 23.89 kg/m2 Zina Jensen APRN.CNM Work Phone: [facility] 01-17-2025 15:41-0400 Body weight 67.13 kg Zina Jensen APRN.C NM Work Phone: [facility] 01-17-2025 15:41-0400 Diastolic blood pressure 64 mm[Hg] Zina Jensen WOMEN'S SOCCER COACH.CNM Work Phone: [facility] 01-17-2025 15:41-0400 Systolic blood pressure 116 mm[Hg] Zina Mikey WOMEN'S SOCCER COACH.CNM Work Phone: [facility] 01-01-2025 08:06-0400 Body mass index (BMI) [Ratio] 23.89 kg/m2 Zina Mikey WOM[employer]'S SOCCER COACH.CNM Work Phone: [facility] 01-01-2025 08:06-0400 Body weight 67.13 kg Zina Jensen APRN.C NM Work Phone: [facility] 01-01-2025 08:06-0400 Diastolic blood pressure 62 mm[Hg] Zina Jensen WOMEN'S SOCCER COACH.CNM Work Phone: [facility] 01-01-2025 08:06-0400 Systolic blood pressure 110 mm[Hg] Zina Jensen WOMEN'S SOCCER COACH.CNM Work Phone: [facility] 12-04-2024 13:11-0400 Body mass index (BMI) [Ratio] 22.44 kg/m2 Vicky Plotts W[employer]'S SOCCER COACH.CNM Work Phone: [facility] 12-04-2024 13:11-0400 Body weight 63.05 kg Vicky Plotts WOMEN'S SOCCER COACH .CNM Work Phone: [facility] 12-04-2024 13:11-0400 Diastolic blood pressure 64 mm[Hg] Vicky Plotts WOMEN'S SOCCER COACH.CNM Work Phone: [facility] 12-04-2024 13:11-0400 Systolic blood pressure 112 mm[Hg] Vicky Plotts WOMEN'S SOCCER COACH.CNM Work Phone: [facility] 11-08-2024 14:16-0500 Body mass index (BMI) [Ratio] 21.31 kg/m2 Zina Jensen WOMEN'S SOCCER COACH.CNM Work Phone: [facility] 11-08-2024 14:16-0500 Body weight 59.88 kg Zina Jensen APRN.C NM Work Phone: [facility] 11-08-2024 14:16-0500 Diastolic blood pressure 62 mm[Hg] Zina Jensen WOMEN'S SOCCER COACH.CNM Work Phone: [facility] 11-08-2024 14:16-0500 Systolic blood pressure 110 mm[Hg] Zina Mikey WOMEN'S SOCCER COACH.CNM Work Phone: [facility] 10-15-2024 10:07-0500 Body mass index (BMI) [Ratio] 20.82 kg/m2 Zina Mikey WOMEN'S SOCCER COACH.CNM Work Phone: [facility] 10-15-2024 10:07-0500 Body weight 58.51 kg Zina Jensen WOMEN'S SOCCER COACH.C NM Work Phone: [facility] 10-15-2024 10:07-0500 Diastolic blood pressure 66 mm[Hg] Zina Jensen WOMEN'S SOCCER COACH.CNM Work Phone: [facility] 10-15-2024 10:07-0500 Systolic blood pressure 98 mm[Hg] Zina Jensen WOMEN'S SOCCER COACH.CNM Work Phone: [facility] 09-13-2024 15:26-0500 Body mass index (BMI) [Ratio] 20.34 kg/m2 Zina Jensen WOMEN'S SOCCER COACH.CNM Work Phone: [facility] 09-13-2024 15:26-0500 Body weight 57.15 kg Zina Mikey WOMEN'S SOCCER COACH.C NM Work Phone: [facility] 09-13-2024 15:26-0500 Diastolic blood pressure 60 mm[Hg] Zina Jensen WOMEN'S SOCCER COACH.CNM Work Phone: [facility] 09-13-2024 15:26-0500 Systolic blood pressure 100 mm[Hg] Zina Jensen WOMEN'S SOCCER COACH.CNM Work Phone: [facility] 09-03-2024 14:24-0500 Body mass index (BMI) [Ratio] 20.34 kg/m2 Zian Jensen WOMEN'S SOCCER COACH.CNM Work Phone: [facility] 09-03-2024 14:24-0500 Body weight 57.15 kg Zina Mikey WOMEN'S SOCCER COACH.C NM Work Phone: [facility] 09-03-2024 14:24-0500 Diastolic blood pressure 64 mm[Hg] Zina Jensen WOMEN'S SOCCER COACH.CNM Work Phone: [facility] 09-03-2024 14:24-0500 Systolic blood pressure 118 mm[Hg] Zina Jensen WOMEN'S SOCCER COACH.CNM Work Phone: [facility] 08-20-2024 09:22-0500 Body mass index (BMI) [Ratio] 20.5 kg/m2 Zina Jensen WOMEN'S SOCCER COACH.CNM Work Phone: [facility] 08-20-2024 09:22-0500 Body weight 57.61 kg Zina Jensen WOMEN'S SOCCER COACH.C NM Work Phone: [facility] 08-20-2024 09:22-0500 Diastolic blood pressure 60 mm[Hg] Zina Jensen WOMEN'S SOCCER COACH.CNM Work Phone: [facility] 08-20-2024 09:22-0500 Systolic blood pressure 112 mm[Hg] Zina Jensen WOMEN'S SOCCER COACH.CNM Work Phone: [facility] 08-12-2024 09:21-0500 Body height 167.6 cm Zina Jensen WOMEN'S SOCCER COACH.C NM Work Phone: [facility] 08-12-2024 09:21-0500 Body mass index (BMI) [Ratio] 20.18 kg/m2 Zina Jensen WOMEN'S SOCCER COACH.CNM Work Phone: [facility] 08-12-2024 09:21-0500 Body weight 56.7 kg Zina Jensen WOMEN'S SOCCER COACH.C NM Work Phone: [facility] 08-12-2024 09:21-0500 Diastolic blood pressure 60 mm[Hg] Zina Jensen WOMEN'S SOCCER COACH.CNM Work Phone: [facility] 08-12-2024 09:21-0500 Systolic blood pressure 108 mm[Hg] Zina Jensen WOMEN'S SOCCER COACH.CNM Work Phone: [facility] 04-02-2024 16:08-0400 Body mass index (BMI) [Ratio] 19.68 kg/m2 Brad Rodriguez MD Work Phone: [facility] 04-02-2024 16:08-0400 Body weight 54.9 kg rBad Rodriguez MD Work Phone: [facility] 04-02-2024 16:08-0400 Diastolic blood pressure 64 mm[Hg] Brad Rodriguez MD Work Phone: [facility] 04-02-2024 16:08-0400 Heart rate 98 /min Brad Rodriguez MD Work Phone: [facility] 04-02-2024 16:08-0400 Systolic blood pressure 119 mm[Hg] Brad Rodriguez MD Work Phone: [facility] 05-02-2023 10:29-0400 Body height 167 cm Ludivina Flower MD Work Phone: [facility] 05-02-2023 10:29-0400 Body weight 53.98 kg Ludivina Flower MD Work Phone: [facility] 05-02-2023 10:29-0400 Diastolic blood pressure 77 mm[Hg] Ludivina Flower MD Work Phone: [facility] 05-02-2023 10:29-0400 Heart rate 90 /min Ludivina Flower MD Work Phone: [facility] 05-02-2023 10:29-0400 SaO2% (BldA) [Mass fraction] 100 % Ludivina Flower MD Work Phone: [facility] 05-02-2023 10:29-0400 Systolic blood pressure 114 mm[Hg] Ludivina Flower MD Work Phone: [facility] 03-28-2023 08:02-0400 Body height 167.6 cm Nurse Beac Work Phone: [facility] 03-28-2023 08:02-0400 Body weight 54 kg Nurse Beac Work Phone: [facility] 03-28-2023 08:02-0400 Diastolic blood pressure 73 mm[Hg] Nurse Beac Work Phone: [facility] 03-28-2023 08:02-0400 Heart rate 95 /min Nurse Beac Work Phone: [facility] 03-28-2023 08:02-0400 SaO2% (BldA) [Mass fraction] 100 % Nurse Beac Work Phone: [facility] 03-28-2023 08:02-0400 Systolic blood pressure 122 mm[Hg] Nurse Beac Work Phone: [facility] 03-28-2023 07:29-0400 Body height 167.6 cm Racheal Bhatt WOMEN'S SOCCER COACH .[employer]ER [employer] SUPERVISOR Work Phone: [facility] 03-28-2023 07:29-0400 Body weight 54 kg Racheal Bhatt WOMEN'S SOCCER COACH .[employer] SUPERVISOR Work Phone: [facility] 03-28-2023 07:29-0400 Diastolic blood pressure 73 mm[Hg] Racheal Bhatt WOMEN'S SOCCER COACH.[employer]ER [employer] SUPERVISOR Work Phone: [facility] 03-28-2023 07:29-0400 Heart rate 95 /min Racheal Bhatt WOMEN'S SOCCER COACH .[employer] SUPERVISOR Work Phone: [facility] 03-28-2023 07:29-0400 SaO2% (BldA) [Mass fraction] 100 % Racheal Bhatt WOMEN'S SOCCER COACH.[employer]ER GOODS SUPERVISOR Work Phone: [facility] 03-28-2023 07:29-0400 Systolic blood pressure 122 mm[Hg] Racheal Bhatt WOMEN'S SOCCER COACH.[employer]ER GOODS SUPERVISOR Work Phone: [facility] 12-05-2022 09:58-0400 Body height 167.6 cm Eileen House WOMEN'S SOCCER COACH -[employer] GOODS SUPERVISOR Work Phone: [facility] 12-05-2022 09:58-0400 Body mass index (BMI) [Ratio] 18.88 kg/m2 Eileen House WOMEN'S SOCCER COACH-[employer] GOODS SUPERVISOR Work Phone: [facility] 12-05-2022 09:58-0400 Body temperature 97.9 [degF] Eileen House WOMEN'S SOCCER COACH -[employer] SUPERVISOR Work Phone: [facility] 12-05-2022 09:58-0400 Body weight 53.07 kg Eileen House WOMEN'S SOCCER COACH -[employer] SUPERVISOR Work Phone: [facility] 12-05-2022 09:58-0400 Diastolic blood pressure 77 mm[Hg] Eileen House WOMEN'S SOCCER COACH-[employer] SUPERVISOR Work Phone: [facility] 12-05-2022 09:58-0400 Heart rate 77 /min Eileen House WOMEN'S SOCCER COACH -[employer] SUPERVISOR Work Phone: [facility] 12-05-2022 09:58-0400 Systolic blood pressure 128 mm[Hg] Eileen House WOMEN'S SOCCER COACH-[employer]ER GOODS SUPERVISOR Work Phone: [facility] Encounters Encounter Date Encounter Type Care Provider Facility Start: 03-20-2025 End: 03-20-2025 Patient encounter procedure Bebeto Valencia MD Work Phone: OB/Gynecology Comment on above: 39 weeks gestation o f (HCC) (Primary Dx); Supervision of high risk in third trimester (HCC); Positive GBS test; Cavernoma or capillary telangiectasia Start: 03-20-2025 End: 03-20-2025 ambulatory CECILE RUTH Facility:[facility] Start: 03-14-2025 End: 03-14-2025 ambulatory Zina Jensen APRN.CNM Work Phone: OB/Gynecology Comment on above: Amoxicillin allergy skin testing results Start: 03-10-2025 End: 03-10-2025 ambulatory Lucinda Velazquez MA [facility] Start: 03-10-2025 End: 03-10-2025 Patient encounter procedure Lucinda Velazquez MA [facility] Comment on above: Population Health Na vigation [...] Start: 03-06-2025 End: 03-06-2025 ambulatory UNKNOWN PROVIDER Facility:[facility] Start: 03-05-2025 End: 03-05-2025 Patient encounter procedure Valerio Leon MD Work Phone: OB/Gynecology Comment on above: Supervision of high risk in third trimester (HCC) (Primary Dx); 37 weeks gestation of (HCC); Positive GBS test; Adverse effect of penicillamine, initial encounter Start: 03-05-2025 End: 03-05-2025 ambulatory TUSHAR CENTENO Facility:[facility] Start: 03-03-2025 End: 03-24-2025 Telephone encounter Livia Denny MD Work Phone: [facility] Comment on above: Opened In Error Appointment; Imaging /Records Start: 03-03-2025 ambulatory Peter Teresa Facility:[facility] Start: 02-24-2025 End: 02-24-2025 Patient encounter procedure Peter Teresa MD Work Phone: OB/Gynecology Comment on above: Encounter for superv ision of normal first in third trimester (HCC) (Primary Dx); 28 weeks gestation of (HCC); 36 weeks gestation of (HCC); Cavernoma; History of intestinal surgery; Encounter for supervision of normal first in first trimester (HCC) Start: 02-24-2025 End: 02-24-2025 [facility] Start: 02-19-2025 End: 02-19-2025 ambulatory [facility] Start: 02-14-2025 End: 02-24-2025 Telephone encounter Vicky [...] supervision of normal first in third trimester ([facility]); ERICK (generalized anxiety disorder); History of bowel resection; Cavernoma or capillary telangiectasia Start: 02-10-2025 End: 02-10-2025 [facility] Facility[facility] Start: 02-07-2025 End: 02-11-2025 ambulatory Zina Jensen [...] Start: 01-31-2025 End: 01-31-2025 ambulatory TUSHAR CENTENO Facility:[facility] Start: 01-23-2025 End: 03-25-2025 Follow-up encounter Lydia Naik MD Work Phone: OB/Gynecology Start: 01-21-2025 End: 03-23-2025 Follow-up encounter Zina Jensen APRN.CNM Work Phone: OB/Gynecology Start: 01-20-2025 End: 03-22-2025 Follow-up encounter Valerio Leon MD Work Phone: OB/Gynecology Start: 01-17-2025 End: 01-17-2025 ambulatory [facility] Facility:[facility] Start: 01-17-2025 End: 01-17-2025 Patient encounter procedure Zina Jensen APRN.CNM Work Phone: OB/Gynecology Comment on above: Encounter for superv ision of normal first in second trimester ([facility]) (Primary Dx); History of posttraumatic stress disorder (PTSD); Family history of congenital heart defect; 30 weeks gestation of ([facility]); PTSD (post-traumatic stress disorder); ERICK (generalized anxiety disorder); Family history of hypothyroidism Encounter for randal hicks screening for malformation using ultrasound ([facility]) (Primary Dx); 30 weeks gestation of ([facility]) Start: 01-17-2025 End: 01-17-2025 [facility] Facility:[facility] Start: 01-16-2025 End: 01-16-2025 Telephone encounter Jossy Lara MD Work Phone: Pediatric Cardiology Comment on above: Care Coordination (F etal echo f/u) Maternal care for (s uspected) abnormality and damage, unspecified, fetus 1 (HCC) (Primary Dx) Start: 01-03-2025 End: 01-03-2025 Telephone encounter Zina Jensen APRN.CNM Work Phone: OB/Gynecology Comment on above: Medical record jerome from [facility] Start: 01-01-2025 End: 03-03-2025 Follow-up encounter Vicky [...] negative state in antepartum period, first trimester ([facility]); History of asthma; Excessive weight gain in , third trimester ([facility]); Cavernoma or capillary telangiectasia Start: 01-01-2025 End: 01-01-2025 [facility] Start: 12-24-2024 End: 12-24-2024 ambulatory Zina Jensen APRN.CNM Work Phone: OB/Gynecology Comment on above: Glucose Tolerance Te st Options Start: 12-04-2024 End: 12-04-2024 ambulatory [facility] [place] Facility:[facility] Start: 12-04-2024 End: 12-04-2024 Patient encounter procedure Vicky Engel APRN.CNM Work Phone: OB/Gynecology Comment on above: Encounter for superv ision of normal first in second trimester (HCC) (Primary Dx); History of posttraumatic stress disorder (PTSD); Rh negative state in antepartum period, first trimester ([facility]); ERICK (generalized anxiety disorder); Family history of congenital heart defect; 24 weeks gestation of ([facility]); Screening for diabetes mellitus Start: 11-19-2024 End: 01-19-2025 Follow-up encounter Zina Jensen APRN.CNM Work Phone: OB/Gynecology Start: 11-19-2024 End: 11-19-2024 Patient encounter procedure Jossy Lara MD Work Phone: Pediatric Cardiology Start: 11-19-2024 End: 11-19-2024 ambulatory Jossy Lara MD Work Phone: Pediatric Cardiology Start: 11-11-2024 End: 01-11-2025 Follow-up encounter Valerio Leon MD Work Phone: OB/Gynecology Start: 11-08-2024 End: 11-08-2024 ambulatory TUSHAR ANDREI CENTENO Facility:[facility] Start: 11-08-2024 End: 11-08-2024 Patient encounter procedure [...] Start: 11-04-2024 End: 11-04-2024 ambulatory Peter Teresa Facility:[facility] Start: 10-15-2024 End: 10-15-2024 ambulatory TUSHAR ANDREI [facility] Facility:[facility] Start: 10-15-2024 End: 10-15-2024 Patient encounter procedure [...] 09-17-2024 End: 09-17-2024 ambulatory TUSHAR ANDREI GODAISLINNANTONIAVLADIMIR Facility:[facility] Start: 09-13-2024 End: 09-13-2024 ambulatory TUSHAR MARIEEANNAbran ROWEAISLINNANTONIAVLADIMIR Facility:[facility] Start: 09-13-2024 End: 09-13-2024 ambulatory TUSHAR CENTENO Facility:[facility] Start: 09-13-2024 End: 09-13-2024 Patient encounter procedure Whi Tech 1 Special Delivery Clerk [employer] [facility]aternal Medicine Comment on [...] Cloudy urine Start: 09-03-2024 End: 09-03-2024 ambulatory [facility] [place] Facility:[facility] Start: 09-02-2024 End: 09-02-2024 Telephone encounter Vicky Engel APRN.CNM Work Phone: OB/Gynecology Comment on above: OB Possible UTI Start: 08-20-2024 End: 08-20-2024 ambulatory [facility] [place] Facility:[facility] Start: 08-20-2024 End: 08-20-2024 Patient encounter procedure Zina Jensen APRN.CNM Work Phone: OB/Gynecology Comment on above: 9 weeks gestation of (Primary Dx); Family history of congenital heart defect Start: 08-12-2024 End: 08-12-2024 ambulatory [facility] [place] Facility:[facility] Start: 08-12-2024 End: 08-12-2024 ambulatory [facility] [place] Facility:[facility] Start: 08-12-2024 End: 08-12-2024 Patient encounter procedure [...] End: 05-09-2024 Emergency department patient visit Tushar Centeon Facility:[facility] Start: 04-10-2024 ambulatory Brad Rodriguez MD Work Phone: Reproductive Endocrinology Infertility Comment on above: IVF Plan Update and Advice Start: 04-08-2024 Telephone encounter Brad lewis MD Work Phone: Reproductive Endocrinology Infertility Comment on above: pt needs notes from her apt on 04/02 sent the [place] Start: 04-02-2024 End: 04-02-2024 [facility]ulatory [facility] Facility:[facility] Start: 04-02-2024 End: 04-02-2024 Patient encounter procedure Brad Rodriguez MD Work Phone: Reproductive Endocrinology Infertility Comment on above: Female infertility ( Primary Dx); Fertility testing Start: 11-24-2023 ambulatory Lalit Pritchard MD Work Phone: [facility] Start: 11-24-2023 Letter encounter Lalit Pritchard MD Work Phone: Reproductive Endocrinology Infertility Comment on above: [facility]ing [facility] for [facility] Start: 09-18-2023 End: 09-18-2023 Patient encounter procedure Lalit Pritchard MD Work Phone: Reproductive Endocrinology Infertility Comment on above: No-show for appointm ent (Primary Dx) Start: 09-18-2023 End: 09-18-2023 Telemedicine consultation with patient Lalit Pritchard MD Work Phone: [facility] Start: 07-21-2023 Telephone encounter Lalit Pritchard MD Work Phone: Reproductive Endocrinology Infertility Start: 07-13-2023 Telephone encounter Lalit Pritchard MD Work Phone: Reproductive Endocrinology Infertility Comment on above: Cost of FET as self pay patient; Karla posadas fet/please follow up with patient Start: 07-04-2023 ambulatory CHELSY Masters ty:[facility] Start: 07-03-2023 ambulatory Kym Lin MD Work Phone: Reproductive Endocrinology Infertility Comment on above: Amoxicillin allergy testing Start: 07-03-2023 E-mail encounter stacie chen caregiver Kym Gtz MD Work Phone: [facility] Start: 06-22-2023 End: 06-22-2023 Patient encounter procedure Andrology Gatekeeper Work Phone: Andrology Lab Comment on above: Female infertility ( Primary Dx) examinatio n or test, unconfirmed (Primary Dx); Infertility, female Start: 06-21-2023 Telephone encounter [facility] Comment on above: Patient Update Start: 06-11-2023 ambulatory Que boggs MD Work Phone: Reproductive Endocrinology Infertility Comment on above: Research study parti cipation Start: 06-11-2023 E-mail encounter stacie chen caregiver Que Zelaya MD Work Phone: [facility] Start: 05-31-2023 ambulatory CHELSY Graff lity:[facility] Start: 05-31-2023 ambulatory CHELSY Graff lity:[facility] Start: 05-31-2023 End: 05-31-2023 Patient encounter procedure Chelsy Perry [facility] Work Phone: Division of Human Genetics [...] Telephone encounter Brad lewis MD Work Phone: [facility] Comment on above: Patient Question; Pa [...] encounter status Ludivina Flower MD Work Phone: [facility] Start: 04-27-2023 Telephone encounter Lalit Pritchard MD Work Phone: Reproductive Endocrinology Infertility Comment on above: lmp 04/27 Karla farris is for fet Start: 04-21-2023 End: 05-04-2023 Patient encounter procedure Andrology Gatekeeper Work Phone: Andrology Lab Comment on above: [...] encounter fro m caregiver [facility] Provider [facility] Start: 04-15-2023 ambulatory [facility] Provider Andrology Lab Comment on above: fertilization Start: 04-15-2023 E-mail encounter fro m caregiver [facility] Provider [facility] Start: 04-14-2023 End: 04-14-2023 Patient encounter procedure Andrology Gatekeeper Work Phone: Andrology Lab Comment on above: Primary female infer tility (Primary Dx) Start: 04-13-2023 End: 04-13-2023 Nursing evaluation of patient and report Nurse Haydee [facility] Jd Work Phone: Reproductive Endocrinology Infertility Comment on above: Female infertility Start: 04-12-2023 End: 04-12-2023 Nursing evaluation of patient and report Brad Rodriguez MD Work Phone: Reproductive Endocrinology Infertility Comment on above: Female infertility Start: 04-11-2023 End: 04-11-2023 Nursing evaluation of patient and report Nurse Haydee [facility] Beac Work Phone: Reproductive Endocrinology Infertility Comment on above: Female infertility Start: 04-07-2023 End: 04-07-2023 Nursing evaluation of patient and report Nurse Haydee [facility] Beac Work Phone: Reproductive Endocrinology Infertility Comment on above: Female infertility Start: 04-06-2023 ambulatory Jerilyn dave WOMEN'S SOCCER COACH.[employer] SUPERVISOR Work Phone: Reproductive Endocrinology Infertility Start: 04-04-2023 ambulatory Lalit Pritchard MD Work Phone: [facility] Start: 04-04-2023 End: 04-04-2023 Nursing evaluation of patient and report Nurse Haydee [facility] Beac Work Phone: Reproductive Endocrinology Infertility Comment on above: Female infertility Time sensitive Leupr olide Order clarification Start: 04-04-2023 Telephone encounter Lalit Pritchard MD Work Phone: Reproductive Endocrinology Infertility Comment on above: insurance update Start: 04-04-2023 End: 04-04-2023 Patient encounter procedure Racheal Bhatt WOMEN'S SOCCER COACH.[employer] SUPERVISOR Work Phone: Reproductive Endocrinology Infertility Comment on above: Preop examination (P rimary Dx); Encounter for male factor infertility in female patient Start: 04-04-2023 End: 04-04-2023 Preprocedural examination done Racheal Bhatt APRN.[employer]ER GOODS SUPERVISOR Work Phone: [facility] Work Phone: Start: 03-28-2023 End: 03-28-2023 Nursing evaluation of patient and report Nurse Haydee [facility] Beac Work Phone: Reproductive Endocrinology Infertility Comment on above: Female infertility Start: 03-22-2023 ambulatory Lalit Pritchard MD Work Phone: Reproductive Endocrinology Infertility Comment on above: Baseline Apt confirm ation Baseline apt Start: 03-20-2023 ambulatory Lalit rPitchard MD Work Phone: Reproductive Endocrinology Infertility Comment on above: IVF Baseline Apt /12/25 Start: 03-03-2023 Telephone encounter Racheal Dominguez WOMEN'S SOCCER COACH.[employer] SUPERVISOR Work Phone: Reproductive Endocrinology Infertility Comment on above: [facility] Start: 02-24-2023 Telephone encounter Lalit Pritchard MD Work Phone: [...] evaluation of patient and report Nurse Haydee [facility] Beac Work Phone: Reproductive Endocrinology Infertility Comment on above: Fertility testing (P rimary Dx) Start: 12-05-2022 ambulatory EILEEN Waite ity:[facility] Start: 12-05-2022 End: 12-05-2022 Office outpatient new 45 minutes Eileen House WOMEN'S SOCCER COACH-[employer] SUPERVISOR Work Phone: Division of Surgical Oncology Comment on above: Fibrocystic breast c hanges, bilateral (Primary Dx); Family history of breast cancer; Family history of prostate cancer; At high risk for breast cancer Start: 12-01-2022 ambulatory CHELSY Masters ty:[facility] Start: 11-11-2022 Telephone encounter Lalit Pritchard MD [...] with patient Lalit Pritchard MD Work Phone: [facility] Start: 02-08-2022 End: 02-08-2022 Patient encounter procedure [facility] [place] 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 Off Procedures Date Procedure Procedure Detail Performing [...] surgery History of intestinal surgery Vicky Engel WOMEN'S SOCCER COACH.CNM Work Phone: Start: 01-17-2025 Us preg uterus after 1st trimest 1/ gestation Zina Mikey MORELAND.CNM Work Phone: Start: 01-01-2025 Antibody screen TUSHAR SPENCER Comment on above: Order Comment: Speci men Type: BLOOD SPECIMENOrdering Facility: [facility] Address: [address] [place] [address] Performed By: #### T SPN ####CC MAIN BLOOD BANKCLIA [id number] OF [place] Start: 11-08-2024 Us preg [...] Comment: Speci men Type: BLOOD SPECIMENOrdering Facility: [facility] Address: [address] [place] [address] Performed By: #### T SPN ####CC MAIN BLOOD BANKCLIA [id number] [address] [place] Start: 08-12-2024 Us uterus l imited 1/> fetuses Zinaestela Jensen APRN.CNM Work Phone: Start: 08-29-2023 Saline infus sonohysterography w/color doppler Racheal Dudziak WOMEN'S SOCCER COACH.[facility] Work Phone: Start: 05-02-2023 Urine test visual color cmprsn meths Racheal Dudziak WOMEN'S SOCCER COACH.[facility] Work Phone: Start: 04-13-2023 Gonadotropin chorion ic quantitative Brad Rodriguez MD Work Phone: Start: 04-12-2023 Us pelvic nonobstetr ic image dcmtn limited/f/u Racheal Dudziak WOMEN'S SOCCER COACH.[employer] SUPERVISOR Work Phone: Start: 04-12-2023 Assay of estradiol Blanca susie Dudziak WOMEN'S SOCCER COACH.[facility] Work Phone: Start: 04-11-2023 Us pelvic nonobstetr ic image dcmtn limited/f/u Racheal Dudziak WOMEN'S SOCCER COACH.[facility] Work Phone: Start: 04-11-2023 Assay of estradiol [place] susie Dudziak WOMEN'S SOCCER COACH.[facility] Work Phone: Start: 04-07-2023 Us pelvic nonobstetr ic image dcmtn limited/f/u Racheal Dudziak WOMEN'S SOCCER COACH.[facility] Work Phone: Start: 04-07-2023 Assay of estradiol [place] susie Dudziak WOMEN'S SOCCER COACH.[facility] Work Phone: Start: 04-04-2023 Us pelvic nonobstetr ic image dcmtn limited/f/u Racheal Dudziak WOMEN'S SOCCER COACH.[facility] Work Phone: Start: 04-04-2023 Assay of estradiol [place] susie Dudziak WOMEN'S SOCCER COACH.[facility] Work Phone: Start: 03-28-2023 Us pelvic nonobstetr ic image dcmtn limited/f/u Racheal Dudziak WOMEN'S SOCCER COACH.[facility] Work Phone: Start: 03-28-2023 Assay of estradiol [place] susie Dudziak WOMEN'S SOCCER COACH.[facility] Work Phone: Start: 05-03-2022 ANTI MULLERIAN HORMONE [facility] Provider H/O: surgery History of intestinal surgery Peter Teresa MD Work Phone: Plan of Treatment Date Care Activity Detail Author Start: 05-19-2033 Tetanus vaccination TETANUS [facility] Start: 05-19-2033 Urine microalbumin profile DTaP,Tdap,Td Vaccine (9 - Td or Tdap) [facility] Start: 08-12-2029 Screening for malign ant neoplasm of cervix Cervical Cancer Screening [facility] Start: 05-05-2025 Influenza vaccination [facility] Start: 03-26-2025 End: 03-26-2025 Patient encounter procedure 03/26/2025 9:45 AM EDT Routine Office Visit OB/Gynecology [address] [place] [address] Vicky Engel APRN.CN [address] [place] [address] OB OB/Gynecology Comment on above: OB Start: 03-24-2025 End: 03-24-2025 Patient encounter procedure 03/24/2025 2:30 PM EDT Routine Office Visit OB/Gynecology [address] [place] [address] Tushar Cervantes APRN.RUBBER GOODS SUPERVISOR [address] [place] [address] OB OB/Gynecology Comment on above: OB Start: 03-20-2025 End: 03-20-2025 Patient encounter procedure 03/20/2025 3:45 PM EDT Routine Office Visit OB/Gynecology [address] [place] [address] Tushar Cervantes APRN.RUBBER GOODS SUPERVISOR [address] [place] [address] OB OB/Gynecology Comment on above: OB Start: 03-20-2025 End: 03-20-2025 Patient encounter procedure 03/20/2025 10:20 AM EDT Routine Office Visit OB/Gynecology [address] [place] [address] Bebeto Valencia MD [address] [place] [address] OB OB/Gynecology Comment on above: OB Start: 03-14-2025 End: 03-14-2025 Patient encounter procedure 03/14/2025 11:15 AM EDT Routine Office Visit OB/Gynecology [address] [place] [address] Zina Jensen APRN.CN [address] [place] [address] OB OB/Gynecology Comment on above: OB Start: 03-12-2025 End: 03-12-2025 ambulatory 03/12/2025 10:45 AM EDT [facility] [address] [place] [address] Kathy Toledo MD [address] [place], [place] [id number] Adverse effect of penicillamine, initial encounter [T50.6X5A] Allergy Comment on above: Adverse effect of pe nicillamine, initial encounter [T50.6X5A] Start: 03-06-2025 End: 03-06-2025 Patient encounter procedure 03/06/2025 2:00 PM EDT Office Visit NEUROLOGY [address] [facility] [place] [address] Livia Denny MD [address] [place], [place] [id number] 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 NEUROLOGY Comment on above: provisional diagnosi s is other malformations of cerebral vessels. Start: 03-05-2025 End: 03-05-2025 Patient encounter procedure 03/05/2025 3:10 PM EDT Routine Office Visit OB/Gynecology [address] [place] [address] Valerio Leon MD [address] [place] [address] OB OB/Gynecology Comment on above: OB Start: 02-24-2025 End: 02-24-2025 Patient encounter procedure 02/24/2025 4:20 PM EDT Routine Office Visit OB/Gynecology [address] [place] [address] Peter Teresa MD [address] [place] [address] OB OB/Gynecology Comment on above: OB Start: 02-12-2025 End: 02-12-2025 Follow-up encounter 02/12/2025 10:30 AM EDT Procedure Pediatric Cardiology [id number] [address] [address] Misbah Chen MD [address] [place] [address] Follow up of known or suspected cardiac [...] 2:30 PM EDT Results Only [place] Decker [facility] [address] [place] [address] [place] [facility] Start: 02-10-2025 End: 02-10-2025 Patient encounter procedure 02/10/2025 1:45 PM EDT Routine Office Visit OB/Gynecology [address] [place] [address] Vicky Engel APRN.CN [address] [place] [address] OB OB/Gynecology Comment on above: OB Start: 02-04-2025 End: 02-04-2025 ambulatory 02/04/2025 11:00 AM EDT Procedure Pediatric Cardiology [address] [place] [address] Jossy Lara MD [address] [place] [address] single 30 weeks Pediatric Cardiology Comment on above: single 30 week s Start: 02-04-2025 End: 02-04-2025 Patient encounter procedure 02/04/2025 11:00 AM EDT Office Visit Pediatric Cardiology [address] [place] [address] single 30 weeks Pediatric Cardiology Comment on above: single 30 week s Start: 01-31-2025 End: 01-31-2025 Patient encounter procedure 01/31/2025 3:50 PM EDT Routine Office Visit OB/Gynecology [address] [place] [address] Hanna Randall MD [address] [place] [address] Return in 2 weeks OB/Gynecology Comment on above: Return in 2 weeks Start: 01-29-2025 End: 01-29-2025 ambulatory 01/29/2025 9:00 AM EDT [address] [address] Ger Javier MD [address] [place] [address] Abnormal imagining/ 28 weeks gestation of (HCC) [Z3A.28] [facility] Comment on above: Abnormal imagining/ 28 weeks gestation of (HCC) [Z3A.28] Start: 01-17-2025 End: 01-17-2025 Patient encounter procedure Maternal Medicine Comment on above: Growth Growth/OB Start: 01-17-2025 End: 04-18-2025 25-hydroxyvitamin D3 [Mass/volume] in Serum or Plasma [facility] Comment on above: Expected: 01/17/2025 , Expires: 04/18/2025 Start: 01-17-2025 End: 04-18-2025 Thyrotropin [Units/volume] in Serum or Plasma [facility] Comment on above: Expected: 01/17/2025 , Expires: 04/18/2025 Start: 01-17-2025 End: 04-18-2025 Toxoplasma gondii IgG Ab [Units/volume] in Serum [facility] Work Phone: Comment on above: Expected: 01/17/2025 , Expires: 04/18/2025 Start: 01-01-2025 End: 01-01-2026 OBSTETRIC ULTRASOUND WHI OBSTETRIC ULTRASOUND WHI Anc Imaging Routine Encounter for supervision of normal first in second trimester ([facility]) Expected: 01/01/2025, Expires: 01/01/2026 [facility] Work Phone: Comment on above: Expected: 01/01/2025 , Expires: 01/01/2026 Start: 01-01-2025 End: 01-01-2025 Patient encounter procedure 01/01/2025 8:00 AM EDT Routine Office Visit OB/Gynecology [address] [place], [place] [id number] Zina Jensen APRN.[facility] [address] [place] [address] Glucose Test /OB OB/Gynecology Comment on above: Glucose Test /OB Start: 12-04-2024 End: 03-05-2025 ANEMIA REFLEX PANEL ANEMIA REFLEX PANEL Lab Routine Encounter for supervision of normal first in second trimester History of posttraumatic stress disorder (PTSD) Rh negative state in antepartum period, first trimester ERICK (generalized anxiety disorder) Family history of congenital heart defect 24 weeks gestation of Expected: 12/04/2024, Expires: 03/05/[address] [facility] Comment on above: Expected: 12/04/2024 , Expires: [...] for diabetes mellitus Expected: 12/04/2024, Expires: 12/04/2025 [facility] Work Phone: Comment on above: Expected: [...] weeks gestation of Expected: 12/04/2024, Expires: 12/04/[address] [facility] Comment on above: Expected: 12/04/2024 , Expires: 12/04/2025 Start: 12-04-2024 End: 03-05-2025 TYPE + SCREEN TYPE + SCREEN Blood Bank Routine Encounter for supervision of normal first in second trimester History of posttraumatic stress disorder (PTSD) Rh negative state in antepartum period, first trimester ERICK (generalized anxiety disorder) Family history of congenital heart defect 24 weeks gestation of Expected: 12/04/2024, Expires: 03/05/[address] [facility] Comment on above: Expected: 12/04/2024 , Expires: 03/05/2025 Start: 12-04-2024 End: 12-04-2024 Patient encounter procedure 12/04/2024 1:15 PM EDT Routine Office Visit OB/Gynecology [address] [place] [address] Vicky Engel APRN.[facility] [address] [place] [address] OB Routine OB/Gynecology Comment on above: OB Routine Start: 11-19-2024 End: 11-19-2024 ambulatory 11/19/2024 9:30 AM EDT Procedure Pediatric Cardiology [address] [facility] [place] [address] Jossy Lara MD [address] [place] [address] 9 weeks gestation of [Z3A.09] Pediatric Cardiology Comment on above: 9 weeks gestation of [Z3A.09] Start: 11-19-2024 End: 11-19-2024 Patient encounter procedure 11/19/2024 9:30 AM EDT Office Visit Pediatric Cardiology [address] [facility] [place] [address] 9 weeks gestation of [Z3A.09] Pediatric Cardiology Comment on above: 9 weeks gestation of [Z3A.09] Start: 11-08-2024 End: 11-08-2024 Patient encounter procedure 11/08/2024 9:45 AM EST Routine Office Visit OB/Gynecology [address] [place] [address] Zina Jensen APRN.CNM [address] [place] [address] OB Routine OB/Gynecology Comment on above: OB Routine Start: 11-08-2024 End: 11-08-2024 Patient encounter procedure 11/08/2024 8:30 AM EST Routine Office Visit OB/Gynecology [address] [place] [address] [facility], Special Delivery Clerk [facility] [address] [place] [address] Anatomy Scan OB/Gynecology Comment on above: Anatomy Scan Start: 11-05-2024 End: 11-05-2024 Patient encounter procedure 11/05/2024 9:45 AM EST Routine Office Visit OB/Gynecology [address] [place] [address] Zina Jensen APRN.CNM [address] [place] [address] OB Routine OB/Gynecology Comment on above: OB Routine Start: 11-05-2024 End: 11-05-2024 Patient encounter procedure 11/05/2024 8:30 AM EST Routine Office Visit Maternal Medicine [address] [place] [address] Anatomy Scan Maternal Medicine Comment on above: Anatomy Scan Start: 10-15-2024 End: 10-15-2024 Patient encounter procedure 10/15/2024 10:00 AM EST Routine Office Visit OB/Gynecology [address] [place] [address] Zina Jensen APRN.CNLiyah [address] [place] [address] OB Routine OB/Gynecology Comment on above: OB Routine Start: 09-17-2024 End: 09-17-2024 Patient encounter procedure 09/17/2024 8:20 AM EST Office [place] [address] [facility] Comment on above: [id number] Start: 09-13-2024 End: 09-13-2024 Patient encounter procedure Maternal Medicine Comment on above: Nuchal OB Routine Start: 09-03-2024 End: 09-03-2024 Patient encounter procedure 09/03/2024 2:30 PM EST Routine Office Visit OB/Gynecology [address] [place] [address] Zina Jensen APRN.CNM [address] [place] [address] OB-Urinary symptoms, brown spotting OB/Gynecology Comment on above: OB-Urinary symptoms, brown spotting Start: 08-20-2024 End: 08-20-2024 Patient encounter procedure 08/20/2024 9:30 AM EST Routine Office Visit OB/Gynecology [address] [place] [address] Zina Jensen APRN.CNM [address] [place] [address] OB Routine OK Per AMBERLY OB/Gynecology Comment on above: OB Routine OK Per AMBERLY Start: 08-12-2024 End: 11-11-2024 ANEMIA REFLEX PANEL [facility] Work Phone: Comment on above: Expected: 08/12/2024 , Expires: 11/11/2024 Start: 08-12-2024 End: 11-11-2024 [address]IN EVALUATION CASCADE [facility] Comment on above: Expected: 08/12/2024 , Expires: 11/11/2024 Start: 08-12-2024 End: 08-12-2025 NUCHAL TRANSLUCENCY WHI NUCHAL TRANSLUCENCY WHI Anc Imaging Routine with uncertain dates, antepartum Expected: 08/12/2024, Expires: 08/12/[address] [facility] Comment on above: Expected: 08/12/2024 , Expires: 08/12/2025 Start: 08-12-2024 End: 08-12-2025 OBSTETRIC ULTRASOUND WHI OBSTETRIC ULTRASOUND WHI Anc Imaging Routine with uncertain dates, antepartum Expected: 08/12/2024, Expires: 08/12/[address] [facility] Comment on above: Expected: 08/12/2024 , Expires: 08/12/2025 Start: 08-12-2024 End: 11-11-2024 Progesterone [Mass/volume] in Serum or Plasma [facility] Comment on above: Expected: 08/12/2024 , Expires: 11/11/2024 Start: 08-12-2024 End: 11-11-2024 TYPE + SCREEN [facility] Comment on above: Expected: 08/12/2024 , Expires: 11/11/2024 Start: 08-12-2024 End: 08-12-2024 Patient encounter procedure 08/12/2024 9:30 AM EST Initial Office Visit OB/Gynecology [address] [place] [address] Zina Jensen APRN.CNM [address] [place] [address] New OB LMP 06/16 - coming at 9am (okay per AMBERLY - see phone note) OB/Gynecology Comment on above: New OB LMP 06/16 - c oming at 9am (okay per AMBERLY - see phone note) Start: 05-05-2024 Covid-19 Vaccine ( season) Covid-19 Vaccine () [facility] Start: 05-05-2024 Influenza vaccination Influenza Vacc ine (#1) [facility] Start: 04-23-2024 End: 04-16-2025 OFFICE HYSTEROSCOPY OFFICE HYSTEROSCOPY Procedures Routine Encounter for fertility testing Expected: 04/23/2024 (Approximate), Expires: 04/16/2025 [facility] Work Phone: Comment on above: Expected: 04/23/2024 (Approximate), Expires: 04/16/2025 Start: 12-04-2023 End: 12-04-2023 Patient encounter procedure Division of Surgical Oncology Start: 09-04-2023 Depression Assessment Depression Ass essment [facility] Start: 07-06-2023 End: 10-05-2023 Choriogonadotropin.beta subunit [Units/volume] in Serum or Plasma HCG QUANTITATIVE Lab STAT examination or test, unconfirmed Expected: 07/06/2023, Expires: 10/05/2023 [facility] Work Phone: Comment on above: Expected: 07/06/2023 , Expires: 10/05/2023 Start: 05-17-2023 End: 07-17-2023 Estradiol (E2) [Mass/volume] in Serum or Plasma ESTRADIOL-17B BLD Lab STAT Female infertility Expected: 05/17/2023, Expires: 07/17/2023 [facility] Work Phone: Comment on above: Expected: 05/17/2023 , Expires: 07/17/2023 Start: 05-17-2023 End: 07-17-2023 Progesterone [Mass/volume] in Serum or Plasma PROGESTERONE BLD Lab STAT Female infertility Expected: 05/17/2023, Expires: 07/17/2023 [facility] Work Phone: Comment on above: Expected: 05/17/2023 , Expires: 07/17/2023 Start: 05-16-2023 End: 05-16-2024 FOLLICULAR US WHI FOLLICULAR US I Anc Imaging Routine Female infertility Expected: 05/16/2023, Expires: 05/16/2024 [facility] Work Phone: Comment on above: Expected: 05/16/2023 , Expires: 05/16/2024 Start: 05-05-2023 Covid-19 Vaccine () Covid-19 Vaccine () [facility] Start: 05-05-2023 Influenza vaccination [facility] Start: 04-13-2023 End: 06-13-2023 Choriogonadotropin.beta subunit [Units/volume] in Serum or Plasma HCG QUANTITATIVE Lab STAT Female infertility Expected: 04/13/2023, Expires: 06/13/2023 [facility] Work Phone: Comment on above: Expected: 04/13/2023 , Expires: 06/13/2023 Start: 04-13-2023 End: 06-13-2023 Lutropin [Units/volume] in Serum or Plasma LUTEINIZING HORMONE Lab STAT Female infertility Expected: 04/13/2023, Expires: 06/13/2023 [facility] Work Phone: Comment on above: Expected: 04/13/2023 , Expires: 06/13/2023 Start: 04-13-2023 End: 06-13-2023 Progesterone [Mass/volume] in Serum or Plasma PROGESTERONE BLD Lab STAT Female infertility Expected: 04/13/2023, Expires: 06/13/2023 [facility] Work Phone: Comment on above: Expected: 04/13/2023 , Expires: 06/13/2023 Start: 03-23-2023 End: 05-23-2023 Estradiol (E2) [Mass/volume] in Serum or Plasma ESTRADIOL-17B BLD Lab STAT Female infertility Expected: 03/23/2023, Expires: 05/23/2023 [facility] Work Phone: Comment on above: Expected: 03/23/2023 , Expires: 05/23/2023 Start: 03-23-2023 End: 05-23-2023 Hematocrit [Volume Fraction] of Blood HEMATOCRIT (HCT) Lab STAT Female infertility Expected: 03/23/2023, Expires: 05/23/2023 [facility] Work Phone: Comment on above: Expected: 03/23/2023 , Expires: 05/23/2023 Start: 12-08-2022 End: 02-07-2023 Hepatitis B virus core Ab [Presence] in Serum HEP B CORE AB TOTAL Lab Routine Fertility testing Expected: 12/08/2022, Expires: 02/07/2023 [facility] Work Phone: Comment on above: Expected: 12/08/2022 , Expires: 02/07/2023 Start: 09-04-2022 DEPRESSION ASSESSMENT DEPRESSION ASS [facility] Start: 2022 HPV TESTING HPV TESTING [facility] Start: 2022 Screening for malign ant neoplasm of cervix HPV Testing [facility] Start: 2013 PAP TESTING PAP TESTING [facility] Start: 2013 Screening for malign ant neoplasm of cervix [facility] Start: 2011 Third diphtheria, tetanus and acellular pertussis (DTaP) vaccination TDAP (ADULT) [facility] Start: 2011 Urine microalbumin profile [facility] Start: 2010 Anxiety Screening Anxiety Screening [facility] Start: 2010 Depression Screening Depression Scre [facility] Start: 2010 HEPATITIS C SCREENING HEPATITIS C [facility] Start: 2010 Hepatitis C screening Hepatitis C [facility] Start: 2010 HIV SCREENING HIV SCREENING [facility] Start: 2010 HIV screening HIV Screening [facility] Start: 2007 HIV screening HIV SCREENING DISCUSSI ON [facility] Start: 1992 COVID-19 VACCINE (#1) COVID-19 VACCI NE (#1) [facility] Start: 1992 HEPATITIS B (1 of 3 - 3-dose series) HEPATITIS B (1 of 3 - 3-dose series) [facility] Start: 1992 Hepatitis B Vaccine (1 of 3 - 3-dose series) Hepatitis B Vaccine (1 of 3 - 3-dose series) [facility] Start: 1992 Hepatitis C screening HEPATITI S C VIRUS SCREENING [facility] Start: 1992 Tetanus vaccination TETANUS [facility] Bacteria identified in Urine by Culture URINE CULTURE Microbiology Routine with uncertain dates, antepartum 08/12/2024 10:32 AM [facility] BACTERIAL VAGINOSIS NAAT BACTERIAL VAGINOSIS NAAT Lab Routine with uncertain dates, antepartum 08/12/2024 10:[address] [facility] STEVE/TRICHOMONAS NAAT STEVE/TRICHOMONAS NAAT Lab Routine with uncertain dates, antepartum 08/12/2024 10:32 AM [facility] Chlamydia trachomatis+Neisseria gonorrhoeae DNA [Presence] in Unspecified specimen by KIRILL with probe detection GONORRHEA/CHLAMYDIA NAAT Lab Routine with uncertain dates, antepartum 08/12/2024 10:[address] [facility] End: 08-20-2025 ECHO ECHO Cardiology Routine 9 weeks gestation of Family history of congenital heart defect 1 Occurrences starting 08/20/2024 until 08/20/2025 [facility] Work Phone: Comment on above: 1 Occurrences starti ng 08/20/2024 until 08/20/2025 End: 01-16-2026 ECHO ECHO Cardiology Routine Maternal care for (suspected) abnormality and damage, unspecified, fetus 1 (HCC) 1 Occurrences starting 01/16/2025 until 01/16/2026 [facility] Work Phone: Comment on above: 1 Occurrences starti ng 01/16/2025 until 01/16/2026 End: 03-27-2024 Estradiol (E2) [Mass/volume] in Serum or Plasma ESTRADIOL-17B BLD Lab STAT Female infertility 6 Occurrences starting 03/30/2023 until 03/27/2024, 5 completed [facility] Work Phone: Comment on above: 6 Occurrences starti ng 03/30/2023 until 03/27/2024, 5 completed End: 05-03-2023 FOLLICULAR US WHI FOLLICULAR US WHI Anc Imaging Routine Female infertility Daily for 6 Occurrences starting 03/23/2023 until 05/03/2023 [facility] Work Phone: Comment on above: Daily for 6 Occurren chloé starting 03/23/2023 until 05/03/2023 OFFICE HYSTEROSCOPY OFFICE HYSTE ROSCOPY Procedures Routine Fertility testing Ordered: 04/02/2024 [facility] Work Phone: Comment on above: Ordered: 04/02/2024 PAP TEST PAP TEST Lab Rou jamie with uncertain dates, antepartum Screening for cervical cancer Screening for human papillomavirus (HPV) 08/12/2024 10:[address] [facility] End: 04-06-2024 Progesterone [Mass/volume] in Serum or Plasma PROGESTERONE BLD Lab STAT Female infertility 3 Occurrences starting 04/07/2023 until 04/06/2024 [facility] Work Phone: Comment on above: 3 Occurrences starti ng 04/07/2023 until 04/06/2024 ROUTINE, GR OUP B STREPTOCOCCUS BY PCR ROUTINE, GROUP B STREPTOCOCCUS BY PCR Microbiology Routine 28 weeks gestation of (HCC) 36 weeks gestation of ([facility]) Cavernoma Ordered: 02/24/2025 [facility] Work Phone: Comment on above: Ordered: 02/24/2025 URINE OB DIP B/O URINE OB DIP B/ O Lab Routine 34 weeks gestation of ([facility]) Encounter for supervision of normal first in third trimester ([facility]) ERICK (generalized anxiety disorder) History of bowel resection Cavernoma or capillary telangiectasia Ordered: 02/10/2025 [facility] Work Phone: Comment on above: Ordered: 02/10/2025 URINE OB DIP B/O URINE OB DIP B/ O Lab Routine Cavernoma Supervision of high risk in third trimester ([facility]) Positive GBS test Family history of congenital heart defect 38 weeks gestation of ([facility]) Ordered: 03/10/2025 [facility] Work Phone: Comment on above: Ordered: 03/10/2025 [facility] Immunizations Immunization Date Immunization Notes Care Provider Genia washington 01-01-2025 RHO(D) immune globul in- IV or IM Zina Mikey MORELAND.CNM Work Phone: [facility] 06-29-2022 influenza virus vacc ine, unspecified formulation Lalit Pritchard MD Work Phone: [facility] Payers Date Payer Category Payer Self-pay [id number] 2022 Unknown [id number] 20 2022 Unknown [id number] 2022 Private Health Insurance [id number] 2022 Private Health Insurance [id number] 1992 Unknown [id number] 2. [id number] 1992 Unknown [id number] 1992 Unknown [id number] 2. [id number] 1992 Unknown [id number] 2. [id number] 1992 Unknown [id number] 2. [id number] Unknown [id number] 2.16. [id number] Unknown [id number] 2.16. [id number] Unknown [id number] Social History Date Type Detail Facility Tobacco smoking stat [facility] Unknown if ever smoked [facility] Work Phone: Start: 1990 Sex Assigned At Female C [facility] Tobacco smoking stat [facility] Tobacco smoking consumption unknown [facility] Start: 12-05-2022 End: 12-07-2022 Tobacco smoking status NHIS Never smoked tobacco [facility] History of tobacco use Passive smoker [facility] Start: 12-05-2022 End: 12-07-2022 Tobacco use and exposure Smokeless tobacco non-user [facility] Start: 12-05-2022 End: 01-17-2025 Alcohol intake Ex-drinker (finding) [facility] Start: 12-05-2022 History SDOH Financial 5 [facility] Start: 12-05-2022 History SDOH Food Worry 1 [facility] Start: 12-05-2022 History SDOH Transpo rt Med 2 [facility] Start: 1990 Sex Assigned At Not on file O MCDON[facility] Start: 12-07-2022 Alcohol intake Current drinke r of alcohol (finding) [facility] Start: 12-07-2022 Alcohol Comment very occasional [facility] Start: 12-07-2022 End: 08-12-2024 History of Social function [facility] Start: 12-07-2022 End: 08-12-2024 Tobacco use panel [facility] National Score (1-10 0), lower number is lower risk [address] [facility] (I/We) worried wheth er (my/our) food would run out before (I/we) got money to buy more. Never true [facility] Start: 08-07-[address] [facility] Start: 06-30-[address] [facility] Start: 08-07-2024 Gender identity Identifies as female gender (finding) [facility] Start: 08-07-2024 Sexual orientation Heterosexual (melly palacios) [facility] Medical Equipment Procedure Code Equipment Code Equipment Original Text Equipment Identifier Dates [id number], [id number] Start: 04-04-2023 End: 08-12-2024 Comment on above: [...] Supervision of high risk in third trimester ([facility]) Orders: URINE OB DIP B/O Positive GBS test Orders: URINE OB DIP B/O Cavernoma or capillary telangiectasia Cleared by neurology. Patient reports cleared by [facility] anesthesia and will confirm this is on patient's L&D chart. Reviewed labor & FM precautions Bebeto Valencia MD [facility] 03-20-2025 Miscellaneous Notes KJ - S: Dona denies LOF or vaginal bleeding. O: 39w4d, see flow sheet SENSITIVE EXAM: Sensitive exam not performed. A/P: Assessment & Plan 39 weeks gestation of (HCC) Orders: URINE OB DIP B/O Supervision of high risk in third trimester ([facility]) Orders: URINE OB DIP B/O Positive GBS test Orders: URINE OB DIP B/O Cavernoma or capillary telangiectasia Cleared by neurology. Patient reports cleared by [facility] anesthesia and will confirm this is on patient's L&D chart. Reviewed labor & FM precautions Bebeto Valencia MD documented in this encounter [facility] 03-20-2025 Instructions Lucinda Nation MA - 03/20/2025 10:10 AM EDT SEQUENTIAL SCREENINGS [facility] offers sequential screenings for women who are [...] It will require an appointment with our process maintenance technician. This is not an ultrasound performed [...] the above symptoms, contact our office at [phone] and ask to speak with a nurse. After hours, you can call doctors registry at [phone] OR call [facility] at [phone] and ask to have the doctor salesperson burial plots paged. If you consider this an emergency, dial 9-1-8 or go to your nearest emergency department. NEED HELP? Are you dealing with a violent or abusive relationship? Are you a victim of rape or sexual assult? Call [facility] 24 hour Crisis Hotline: 565.978.9282 or 552-447-5229. MANUAL Your Guide to a Healthy manual is now on-line. Visit [email or web address] [place] to download your free copy documented in this encounter [facility] 03-14-2025 Telephone encounter Note Received fax from [facility] that anesthesia consult was completed on 03/06/25 and states Optimized for anesthesia. AMBERLY notified. Copy to L&D and sent to scan into [employer]. Lacey Mazariegos RN [facility] 03-14-2025 Miscellaneous Notes Received fax from PAT that anesthesia consult was completed on 03/06/25 and states Optimized for anesthesia. AMBERLY notified. Copy to L&D and sent to scan into [employer]. Lacey Mazariegos RN Sent copy of allergy testing to L&D. Left voicemail with [facility] PAT regarding if consult was completed then and to get consult faxed to office if so. Lacey Mazariegos RN Please send note to L&D. Please remove PCN from allergy list. Did we get Anesthesia consult yet? Thank you, Zina Jensen APRN.CNM documented in this encounter [facility] 03-14-2025 Telephone encounter Note Sent copy of allergy testing to L&D. Left voicemail with [facility] PAT regarding if consult was completed then and to get consult faxed to office if so. Lacey Mazariegos RN [facility] 03-14-2025 Telephone encounter Note Please send note to L&D. Please remove PCN from allergy list. Did we get Anesthesia consult yet? Thank you, Zina Jensen APRN.CNM [facility] 03-12-2025 Note HNO ID: [id number] Author: LUCINDA VELAZQUEZ MA Service: ? Author Type: Sustainability Specialist Type: Progress Notes Filed: 03/12/2025 08:40 Note Text: POPULATION HEALTH NAVIGATION OUTREACH Action/FYI 2nd attempt: Called and left message to call back, Reason for Outreach Medicaid OB/Peds Care Gaps due: N/A Patient Contacted: Unable or unnecessary to reach patient: Unable to reach patient Left message Navigation Signature: Lucinda Hussein MA March 12, 2025 8:39 AM [facility] 03-10-2025 Progress note Formatting of t [...] RTO in one week Zina Jensen APRN.CNM [facility] 03-10-2025 Miscellaneous Notes AMBERLY-S: Dona Gutierrez is [...] Zina Jensen APRN.CNM documented in this encounter [facility] 03-10-2025 Instructions Zina Jensen APRN.CNM - 03/10/2025 [...] the above symptoms, contact our office at [phone] and ask to speak with a nurse. After hours, you can call doctors registry at [phone] OR call [facility] at [phone] and ask to have the doctor salesperson burial plots paged. If you consider this an emergency, dial 7-1-0 or go to your nearest emergency department. NEED HELP? Are you dealing with a violent or abusive relationship? Are you a victim of rape or sexual assult? Call [facility] ([facility] 24 hour Crisis Hotline: 898.375.7500 or 446-791-0902. MANUAL Your Guide to a Healthy manual is now on-line. Visit [email or web address] to download your free copy documented in this encounter [facility] 03-10-2025 Note HNO ID: [id number] Author: LUCINDA VELAZQUEZ MA Service: ? Author Type: Sustainability Specialist Type: Progress Notes Filed: 03/10/2025 14:12 Note Text: POPULATION HEALTH NAVIGATION OUTREACH Action/ attempt: Called and left message to call back to discuss throw out clerk. MC message sent. Reason for Outreach Medicaid OB/Peds Care Gaps due: N/A Patient Contacted: Unable or unnecessary to reach patient: Unable to reach patient Left message MessagePartyhart message sent Navigation Signature: Lucinda Hussein MA March 10, 2025 10:14 AM [facility] 03-10-2025 History of Present illness Narrative POPULATION HEALTH NAVIGATION OUTREACH Action/ 1st attempt: Called and left message to call back to discuss throw out clerk. MC message sent. Reason for Outreach Medicaid OB/Peds Care Gaps due: N/A Patient Contacted: Unable or unnecessary to reach patient: Unable to reach patient Left message [place] message sent Navigation Signature: Lucinda Hussein MA March 10, 2025 10:14 AM documented in this encounter [facility] 03-10-2025 Note Patient Outreach (NE TNAV) DONA GUTIERREZ ([id number]) 1990 F Date Time Provider Department 03/10/25 LUCINDA VELAZQUEZ During your visit today, we recorded the following information about you: Lucinda Velazquez MA 03/10/2025 2:12 PM Signed POPULATION HEALTH NAVIGATION OUTREACH Action/ attempt: Called and left message to call back to discuss throw out clerk. MC message sent. Reason for Outreach Medicaid OB/Peds Care Gaps due: N/A Patient Contacted: Unable or unnecessary to reach patient: Unable to reach patient Left message THE BEARDED LADYt message sent Navigation Signature: Lucinda Hussein MA [...] Encounter Status:Closed by LUCINDA VELAZQUEZ on 03/10/25 [facility] 03-06-2025 Instructions Livia Denny MD - [...] your preference and the recommendations of your bike shop manager. If your blood pressure trends upward or labor becomes prolonged and strenuous, your bike shop manager may recommend one approach or another to ensure your safety. - Pain management during labor is encouraged if needed to help control blood pressure and reduce strain on your body. - You may deliver at [place], as there is no need to transfer [...] delivery. - I will communicate with your bike shop manager to ensure they are aware of the [...] any additional recommendations. documented in this encounter [facility] 03-06-2025 History of Present illness Narrative [facility] Initial Visit Dona Gutierrez CC#: [id number] Date of Service: 03/06/2025 Primary Care Provider: Tushar Centeno MD, MD The patient was referred by [place] for opinion regarding a left pontine [...] for Supervision of Normal in First Trimester ([facility]) History of Infertility Rh Negative State in Antepartum Period, First Trimester ([facility]) Cavernoma or capillary telangiectasia Ptsd (Post-Traumatic Stress [...] ORAL) Take by mouth once daily. CRANBERRY [id number] ORAL Take by mouth. (Patient not taking: [...] 0.5 01/01/2025 Abs Neut 6.76 01/01/2025 Abs [place] 0.36 01/01/2025 Abs Eosin 0.19 01/01/2025 Abs [...] clinic after the repeat MRI. Recording using [employer] software for draft documentation of the visit was discussed with the patient/authorized senior account representative; all questions welcomed and answered. Patient/authorized senior account representative agreed to proceed SIGNATURE Livia Denny MD Staff, Neuroendovascular Intervention documented in this encounter [facility] 03-06-2025 Note HNO ID: [id number] Author: LIVIA DENNY MD Service: ? Author Type: Physician Type: Progress Notes Filed: 03/09/2025 23:39 Note Text: [facility] Initial Visit Dona Gutierrez [facility]#: [id number] Date of Service: 03/06/2025 Primary Care Provider: Tushar Centeno MD, MD The patient was referred by [facility] [place] for opinion regarding a left pontine capillary [...] for Supervision of Normal in First Trimester ([facility]) History of Infertility Rh Negative State in Antepartum Period, First Trimester ([facility]) Cavernoma or capillary telangiectasia Ptsd (Post-Traumatic Stress [...] ORAL) Take by mouth once daily. CRANBERRY [id number] ORAL Take by mouth. (Patient not taking: [...] sensory modalities ( (more content not included)... [facility] 03-05-2025 Note HNO ID: [id number] Author: VALERIO LEON MD Service: ? Author Type: Physician Type: Progress Notes Filed: 03/05/2025 16:57 Note Text: [facility] 03-05-2025 History of Present illness Narrative documented in this encounter [facility] 03-05-2025 Progress note Formatting of t his [...] Supervision of high risk in third trimester ([facility]) kickcounts Orders: URINE OB DIP B/O 37 weeks gestation of ([facility]) Orders: URINE OB DIP B/O Positive GBS test allergy testing, if not done ancef Orders: URINE OB DIP B/O Adverse effect of penicillamine, initial encounter agrees to allergy testing Orders: CONSULT TO ALLERGY/IMMUNOLOGY; Future neuro and allergy and anesthesia consults to be done sneha. Valerio Leon M.D. [facility] 03-05-2025 Miscellaneous Notes RR- VB No. LOF No. CTXS No. Movement: present. Other c/o: No. Medication list reviewed. SENSITIVE EXAM: Sensitive exam not performed. Physical Exam See Flow Sheet Abd: soft, nontender, gravid Ext: edema: no A/P 37w3d Estimated Date of Delivery: 03/23/25 Assessment & Plan Supervision of high risk in third trimester ([facility]) kickcounts Orders: URINE OB DIP B/O 37 weeks gestation of ([facility]) Orders: URINE OB DIP B/O Positive GBS test allergy testing, if not done ancef Orders: URINE OB DIP B/O Adverse effect of penicillamine, initial encounter agrees to allergy testing Orders: CONSULT TO ALLERGY/IMMUNOLOGY; Future neuro and allergy and anesthesia consults to be done sneha. Valerio Leon M.D. documented in this encounter [facility] 03-05-2025 Instructions Mariaelena Rubio MA - 03/05/2025 3:27 PM EDT SEQUENTIAL SCREENINGS The [facility] offers sequential screenings for women who are [...] It will require an appointment with our process maintenance technician. This is not an ultrasound performed [...] the above symptoms, contact our office at [phone] and ask to speak with a nurse. After hours, you can call [employer] registry at [phone] OR call [facility] at [phone] and ask to have the doctor salesperson burial plots paged. If you consider this an emergency, dial 91- or go to your nearest emergency department. NEED HELP? Are you dealing with a violent or abusive relationship? Are you a victim of rape or sexual assult? Call [facility] [place] ([facility] 24 hour Crisis Hotline: 642.390.8547 or 269-197-0910. MANUAL Your Guide to a Healthy manual is now on-line. Visit [email or web address] to download your free copy documented in this encounter [facility] 03-04-2025 Telephone encounter Note Received outside medical records from [place] and scanned into patient chart. [facility] 03-04-2025 Miscellaneous Notes Received outside medical records from [place] and scanned into patient chart. Images from the original note were not included. Spoke with patient & she confirmed 2020 Brain Imaging from [facility] is most recent. Requested images from [employer]. Patient states she may have imaging on a CD. If she finds, she will also bring to appointment. OSH imaging/records received from [facility]: March 03, 2025 -Last 5 Years Records available in Care Everywhere -Last 5 Years Imaging [place]. Nisha Awan Has added pt to Dr Denny schedule, but need imaging. None located in [facility]. 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 Also she is 37 weeks . Am I allowed to schedule her with Dr. Denny this ? documented in this encounter [facility] 03-03-2025 Telephone encounter Note Images from the original note were not included. Spoke with patient & she confirmed 2020 Brain Imaging from [facility] is most recent. Requested images from [facility] [employer]. Patient states she may have imaging on a CD. If she finds, she will also bring to appointment. OSH imaging/records received from [facility]: March 03, 2025 -Last 5 Years Records available in Care Everywhere -Last [address] [facility] 03-03-2025 Telephone encounter Note [facility] [place] [facility] [place] [facility]. Nisha Awan Has added pt to Dr Denny schedule, but need imaging. None located in [facility]. 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 Also she is 37 weeks . Am I allowed to schedule her with Dr. Denny this ? [facility] 02-24-2025 Progress note Formatting of t his [...] call - Weekly visits Peter Teresa DO [facility] 02-24-2025 Miscellaneous Notes SW- Pt doing well. [...] Peter Teresa DO documented in this encounter [facility] 02-24-2025 Instructions Lucinda Nation MA - 02/24/2025 4:08 PM EDT SEQUENTIAL SCREENINGS The [facility] offers sequential screenings for women who are [...] It will require an appointment with our process maintenance technician. This is not an ultrasound performed [...] the above symptoms, contact our office at [phone] and ask to speak with a nurse. After hours, you can call doctors registry at [phone] OR call [facility] at [phone] and ask to have the doctor salesperson burial plots paged. If you consider this an emergency, dial 7-1-7 or go to your nearest emergency department. NEED HELP? Are you dealing with a violent or abusive relationship? Are you a victim of rape or sexual assult? Call [facility] ([facility] 24 hour Crisis Hotline: 298.484.5405 or 476-630-4652. MANUAL Your Guide to a Healthy manual is now on-line. Visit [email or web address] to download your free copy documented in this encounter [facility] 02-24-2025 Telephone encounter Note Please keep follow up with patient and neurology. Thank you, Zina Jensen APRN.CNM [facility] 02-24-2025 Miscellaneous Notes Please keep follow up with patient and neurology. Thank you, Zina Jensen APRN.CNM FYI: Referral to neurology was denied by patient's insurance. Per insurance: Care has been deemed clinically inappropriate: Reason: patient had a MRI and neurology consultation in 2020 and does not need further imaging or f/u unless patient develops new neurological symptoms. documented in this encounter [facility] 02-14-2025 Telephone encounter Note FYI: Referral to neurology was denied by patient's insurance. Per insurance: Care has been deemed clinically inappropriate: Reason: patient had a MRI and neurology consultation in 2020 and does not need further imaging or f/u unless patient develops new neurological symptoms. [facility] 02-12-2025 History of Present illness Narrative Zina Mikey MORELAND CNM NAME: Dona Gutierrez CLINIC Number.: [id number] Date of : 1990 Date of Visit: [...] were explained. She plans to deliver at [facility]. Based on todays exam we felt [...] which included preparing to see the patient, hpol-ws-[id number] patient care, completing clinical documentation, counseling and educating the patient/family/caregiver, communicating with other HCPs (not separately reported), and communicating results to the patient/family/caregiver. Sincerely, Misbah Chen MD documented in this encounter [facility] 02-12-2025 Note HNO ID: [id number] Author: MISBAH CHEN MD Service: ? Author Type: Physician Type: Progress Notes Filed: 02/12/2025 12:39 Note Text: Ms. Zina Jensen ANICETO CNLiyah NAME: Dona Gutierrez CLINIC Number.: [id number] Date of : 1990 Date of Visit: [...] were explained. She plans to deliver at [facility]. Based on todays exam we felt [...] which included preparing to see the patient, tgbl-[id number]-gasj patient care, completing clinical documentation, counseling and educating the patient/family/caregiver, communicating with other HCPs (not separately reported), and communicating results to the patient/family/caregiver. Sincerely, Misbah Chen MD [facility] 02-11-2025 Telephone encounter Note [facility] [place] signed by CP and faxed along with neuro consult order and 01/01/25 visit records. Lacey Mazariegos RN [facility] 02-11-2025 Miscellaneous Notes [place] signed by CP and faxed along with neuro consult order and 01/01/25 visit records. Lacey Mazariegos RN See 02/06/25 phone note regarding the form too. Lacey Mazariegos RN documented in this encounter [facility] 02-10-2025 Instructions Mariaelena Rubio MA - 02/10/2025 1:52 PM EDT SEQUENTIAL SCREENINGS The [facility] offers sequential screenings for women who are [...] It will require an appointment with our process maintenance technician. This is not an ultrasound performed [...] the above symptoms, contact our office at [phone] and ask to speak with a nurse. After hours, you can call doctors registry at [phone] OR call [facility] at [phone] and ask to have the doctor salesperson burial plots paged. If you consider this an emergency, dial 05-05-6 or go to your nearest emergency department. NEED HELP? Are you dealing with a violent or abusive relationship? Are you a victim of rape or sexual assult? Call [facility] ([place]) 24 hour Crisis Hotline: 238.616.8995 or 007-127-3935. MANUAL Your Guide to a Healthy manual is now on-line. Visit [email or web address] to download your free copy documented in this encounter [facility] 02-10-2025 Progress note Formatting of t his [...] unmedicated - Repeat echo this week at [facility] - Having issues with [facility] approval for neurology consult- still in process - PTL precautions and kick counts reviewed - RTO 2 weeks for GRACE with GBS Vicky Engel APRN.CNM [facility] 02-10-2025 Miscellaneous Notes S: Dona Gutierrez is [...] unmedicated - Repeat echo this week at [facility] - Having issues with [facility] approval for neurology consult- still in process - PTL precautions and kick counts reviewed - RTO 2 weeks for GRACE with GBS Vicky Engel APRN.CNM documented in this encounter [facility] 02-07-2025 Telephone encounter Note See 02/06/25 phone note regarding the form too. Lacey Mazariegos RN [facility] 02-06-2025 Telephone encounter Note Patient referred for neurology consult by Zina Jensen. [facility] calling to notify office that they will be faxing over forms that need to be completed prior to scheduling patient. Form received and given to Zina Jensen to sign. Will need faxed back once signed. Kristen Patterson RN [facility] 02-06-2025 Miscellaneous Notes Patient referred for neurology consult by Zina Jensen. [facility] calling to notify office that they will be faxing over forms that need to be completed prior to scheduling patient. Form received and given to Zina Jensen to sign. Will need faxed back once signed. Kristen Patterson RN documented in this encounter [facility] 02-05-2025 Telephone encounter Note Spouse's FMLA paperwork completed and faxed back to employer. Patient notified. Valente Cotton MA [facility] 02-05-2025 Miscellaneous Notes Spouse's FMLA paperwork completed and faxed back to employer. Patient notified. Valente Cotton MA documented in this encounter [facility] 01-31-2025 Progress note Formatting of t his [...] L&D for anesthesia and will scan to the medical center 32 weeks gestation of ([facility]) RTO 2 weeks Kick counts reviewed Message sent to Cardiac team/ echo Dr. Lara- repeat echo not covered- pt wants to know if it is necessary or not. And can she still delivery at [facility]. ECHO was normal. Hanna Fonseca MD [facility] 01-31-2025 Miscellaneous Notes DM-Pt doing well. Denies vaginal Bleeding, Leaking fluid, or regular Contractions. Pt reports good movement Physical Exam: Gen: female in no apparent distress Abd: soft, Gravid. Non tender to palpation. See flow sheet @ 32.5 Assessment & Plan Encounter for supervision of normal first in third trimester ([facility]) History of bowel resection At [age] year old had intussusception - bowel removed (not sure how much) and appendix removed Cavernoma or capillary telangiectasia Pt brought records from 2020- MRI an neuro notes- minimal risk. Faxed copy to L&D for anesthesia and will scan to the medical center 32 weeks gestation of ([facility]) RTO 2 weeks Kick counts reviewed Message sent to Cardiac team/ echo Dr. Lara- repeat echo not covered- pt wants to know if it is necessary or not. And can she still delivery at [facility]. ECHO was normal. Hanna Fonseca MD documented in this encounter [facility] 01-23-2025 Telephone encounter Note Lab client services called stating IGG test already completed, but that IGM did need entered. Please file as needs added by today or cannot be completed. Please address in AMBERLY absence. Forrest Walker RN [facility] 01-23-2025 Miscellaneous Notes Lab client services called [...] Zina Jensen APRN.CNM documented in this encounter [facility] 01-22-2025 Telephone encounter Note Spoke with lab client services and yes, new order will show IgM and IgG. Kristen Patterson RN [facility] 01-22-2025 Telephone encounter Note Order signed. 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 Thank you, Zina Jensen APRN.CNM [facility] 01-20-2025 Progress note Formatting of t his note might be different from the original. Anatomy ultrasound reviewed. No abnormalities identified. Follow up as clinically indicated. Please place copy in ob chart. Valerio Leon MD [facility] 01-20-2025 Miscellaneous Notes Anatomy ultrasound reviewed. No abnormalities identified. Follow up as clinically indicated. Please place copy in ob chart. Valerio Leon MD documented in this encounter [facility] 01-17-2025 Note Indication Evaluation of growth excessive [...] 1 oz EFW by: [employer]lock (HC-AC-FL) Extended Channel Cementer 5.5 mm Extremities / Bony Struc FL [...] the above symptoms, contact our office at [phone] and ask to speak with a nurse. After hours, you can call doctors registry at [phone] OR call [facility] at [phone] and ask to have the doctor salesperson burial plots paged. If you consider this an emergency, dial 2-3-8 or go to your nearest emergency department. NEED HELP? Are you dealing with a violent or abusive relationship? Are you a victim of rape or sexual assult? Call [facility] ([facility] 24 hour Crisis Hotline: 605.408.4663 or 866-750-8666. MANUAL Your Guide to a Healthy manual is now on-line. Visit [email or web address] to download your free copy documented in this encounter [facility] 01-17-2025 Miscellaneous Notes AMBERLY-S: Dona Gutierrez is [...] or capillary telangiectasia -Seen in 2019 at [facility] but no follow up since. -Records requested but additional form needed,awaiting response -Neurology consult 01/29/25 -Discussed possible anesthesia consult. PTL precautions RTO in 2 weeks Zina Jensen APRN.CNM documented in this encounter [facility] 01-17-2025 Progress note Formatting of t his [...] or capillary telangiectasia -Seen in 2019 at [facility] but no follow up since. -Records requested but additional form needed,awaiting response -Neurology consult 01/29/25 -Discussed possible anesthesia consult. PTL precautions RTO in 2 weeks Zina Jensen APRN.CNM [facility] 01-16-2025 Telephone encounter Note Dona called the office to schedule echo follow up with Dr. Lara. Holding echo slot with Dr. Lara in [place] on 01/21 at 11am. Message sent to scheduling. [facility] 01-16-2025 Miscellaneous Notes Dona called the office to schedule echo follow up with Dr. Lara. Holding echo slot with Dr. Lara in [place] on 01/21 at 11am. Message sent to scheduling. documented in this encounter [facility] 01-03-2025 Telephone encounter Note In order to request pt's medical records from [facility], they need another form filled out in addition to the [facility] Medical Record Release form that the pt filled out. Letter (explaining this to the pt) typed up and the required form from [facility] and the [facility] Medical Record Release form mailed to pt per Shayy Gomez. [facility] 01-03-2025 Miscellaneous Notes In order to request pt's medical records from [facility], they need another form filled out in addition to the [facility] Medical Record Release form that the pt filled out. Letter (explaining this to the pt) typed up and the required form from [facility] and the [facility] Medical Record Release form mailed to pt per Shayy Gomez. documented in this encounter [facility] 01-01-2025 Progress note Formatting of t his [...] or capillary telangiectasia -Seen in 2019 at [facility] but no follow up since. Will refer to neurology and records requested. -Discussed possible anesthesia consult. PTL precautions reviewed and when to call RTO in 2 week Zina Jensen APRN.CNM [facility] 01-01-2025 Miscellaneous Notes AMBERLY-S: Dona Gutierrez is [...] or capillary telangiectasia -[facility] [facility] but no follow up since. Will refer to neurology and records requested. -Discussed possible anesthesia consult. PTL precautions reviewed and when to call RTO in 2 week Zina Jensen APRN.CNM documented in this encounter [facility] 01-01-2025 Note HNO ID: [id number] Author: ZINA JENSEN APRN.CNM Service: ? Author Type: Usability Architect Type: Progress Notes Filed: 01/01/2025 13:52 Note Text: [facility] 01-01-2025 History of Present illness Narrative documented in this encounter [facility] 01-01-2025 Instructions Zina Jensen APRN.CNM - 01/01/2025 [...] an easy pie crust in the food service helper. Add soaked dates to homemade nut butter for a sweet treat. Add dates to kris homemade salad dressing. Add dates during easily with these yummy (paleo friendly) bars made from dates. What Is Red Raspberry [place] Tea? Red raspberry leaf tea comes from [...] , and too. How Much Red Raspberry [place] Tea to Drink? With your doctor or client coordinator s approval, start with 1 cup of [...] because of uterine cramping. Is Red Raspberry [place] Tea the Same as Raspberry [place]ua Tea? How About Plain Old Raspberry Tea? Sometimes. You really need to look at the ingredients to be sure. Note that there is no difference between red raspberry leaf and raspberry leaf. [employer] Op or Plaxo Raspberry [place]ua Tea are two good brands. The red [...] outlined in this article. [employer] www.[email or web address] I named this 'circuit' after my friend [...] sideways, 2 at a time, (have a account services representative downstairs of you!), take a walk outside [...] the pelvis. Lesly Adams: Circuit Creator - www.Village Laundry Serviceundbirthcollective.Acsis Karla Cheney CD, BDT (GOPAL), LCCE, FACCE: Supporting Content - www.karlaPhoneplusminaAppsee Tushar Smiley: Photography - www.tusharOverwolfaverbrowCREATIV™ Media Group.Acsis Kaykay Oseguera CD/CDT (KELSEY): Print and Gas Transfer Operator - www.V[employer] Masterminds The Nutzvieh24 www.[place] SIGNS AND SYMPTOMS OF LABOR 1. Contractions every 10 minutes or more often 2. Clear, pink, or brownish fluid (water) leaking from vagina 3. Feeling that baby is pushing down, pressure 4. Low, dull backache 5. Cramps that feel like a period 6. Cramps with or without diarrhea If you notice any of the above symptoms, contact our office at [phone] and ask to speak with a nurse. After hours, you can call doctors registry at [phone] OR call [facility] at [phone] and ask to have the doctor salesperson burial plots paged. If you consider this an emergency, dial 9-1-1 or go to your nearest emergency department. NEED HELP? Are you dealing with a violent or abusive relationship? Are you a victim of rape or sexual assult? Call [facility] ([place]) 24 hour Crisis Hotline: 665.806.4670 or 628-086-2836. MANUAL Your Guide to a Healthy manual is now on-line. Visit [email or web address]/HealthyPregnan [place] to download your free copy documented in this encounter [facility] 12-04-2024 Progress note Formatting of t his [...] supervision of normal first in second trimester ([facility]) 2. History of posttraumatic stress disorder (PTSD) [...] or sooner if needed Vicky Engel APRN.CNM [facility] Work Phone: 12-04-2024 Miscellaneous Notes S: Dona [...] supervision of normal first in second trimester ([facility]) 2. History of posttraumatic stress disorder (PTSD) [...] Vicky Engel APRN.CNM documented in this encounter [facility] 12-04-2024 Instructions Valente Cotton MA - 12/04/2024 1:09 PM EDT SEQUENTIAL SCREENINGS The [facility] offers sequential screenings for women who are [...] It will require an appointment with our process maintenance technician. This is not an ultrasound performed [...] the above symptoms, contact our office at [phone] and ask to speak with a nurse. After hours, you can call doctors registry at [phone] OR call [facility] at [phone] and ask to have the doctor salesperson burial plots paged. If you consider this an emergency, dial 05-05- or go to your nearest emergency department. NEED HELP? Are you dealing with a violent or abusive relationship? Are you a victim of rape or sexual assult? Call [facility] ([place]) 24 hour Crisis Hotline: 711.596.2958 or 020-132-1517. MANUAL Your Guide to a Healthy manual is now on-line. Visit [email or web address]/HealthyPregnan rosa mariaTitiandressa to download your free copy documented in this encounter [facility] 11-19-2024 Note HNO ID: [id number] Author: JOSSY LARA MD Service: ? 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 Delivery is planned now at [facility] though she says she plans to [...] which included preparing to see the patient, iilt-ey-xdff patient care, completing clinical documentation, obtaining and/or reviewing separately obtained history, performing a medically appropriate examination, counseling and educating the patient/family/caregiver, ordering medications, tests, or procedures, communicating with other HCPs (not separately reported), independently interpreting results (not separately reported), and communicating results to the patient/family/caregiver. Sincerely, Dr. Jossy Lara [facility] 11-19-2024 History of Present illness Narrative Ms. Zina Jensen [facility] NAME: Dona Gutierrez CLINIC Number.: [id number] Date of : 1990 Date of Visit: [...] 30-34 weeks. Delivery is planned now at [facility] though she says she plans to [...] which included preparing to see the patient, bcoo-dn-xndc patient care, completing clinical documentation, obtaining and/or reviewing separately obtained history, performing a medically appropriate examination, counseling and educating the patient/family/caregiver, ordering medications, tests, or procedures, communicating with other HCPs (not separately reported), independently interpreting results (not separately reported), and communicating results to the patient/family/caregiver. Sincerely, Dr. Jossy Lara documented in this encounter [facility] 11-11-2024 Miscellaneous Notes Anatomy ultrasound reviewed. No abnormalities identified. Follow up as clinically indicated. Please place copy in ob chart. Valerio Leon MD documented in this encounter [facility] 11-11-2024 Progress note Formatting of t his note might be different from the original. Anatomy ultrasound reviewed. No abnormalities identified. Follow up as clinically indicated. Please place copy in ob chart. Valerio Leon MD [facility] 11-08-2024 Progress note Formatting of t his [...] RTO in 4 week Zina Jensen APRN.CNM [facility] 11-08-2024 Miscellaneous Notes AMBERLY-S: Dona Gutierrez is [...] Zina Jensen APRN.CNM documented in this encounter [facility] 11-08-2024 Instructions Valente Cotton MA - 11/08/2024 2:18 PM EST SEQUENTIAL SCREENINGS The [facility] offers sequential screenings for women who are [...] It will require an appointment with our process maintenance technician. This is not an ultrasound performed [...] the above symptoms, contact our office at [phone] and ask to speak with a nurse. After hours, you can call doctors registry at [phone] OR call [facility] at [phone] and ask to have the doctor salesperson burial plots paged. If you consider this an emergency, dial 4-6-6 or go to your nearest emergency department. NEED HELP? Are you dealing with a violent or abusive relationship? Are you a victim of rape or sexual assult? Call [facility] ([place]) 24 hour Crisis Hotline: 722.852.2029 or 700-940-8669. MANUAL Your Guide to a Healthy manual is now on-line. Visit [email or web address] [place] to download your free copy documented in this encounter [facility] 10-15-2024 Progress note Formatting of t his [...] RTO in 4 weeks Zina Jensen APRN.CNM [facility] 10-15-2024 Miscellaneous Notes AMBERLY-S: Dona Gutierrez is [...] Zina Jensen APRN.CNM documented in this encounter [facility] 10-15-2024 Valente Black MA - 10/15/2024 10:03 AM EST SEQUENTIAL SCREENINGS The [facility] offers sequential screenings for women who are [...] It will require an appointment with our process maintenance technician. This is not an ultrasound performed [...] the above symptoms, contact our office at [phone] and ask to speak with a nurse. After hours, you can call doctors registry at [phone] OR call [facility] at [phone] and ask to have the doctor salesperson burial plots paged. If you consider this an emergency, dial 2-7-2 or go to your nearest emergency department. NEED HELP? Are you dealing with a violent or abusive relationship? Are you a victim of rape or sexual assult? Call [facility] ([place]) 24 hour Crisis Hotline: 140.141.4592 or 642-733-7522. MANUAL Your Guide to a Healthy manual is now on-line. Visit [email or web address] [place] to download your free copy documented in this encounter [facility] 09-13-2024 Progress note Formatting of t his [...] RTO in 4 weeks Zina Jensen APRN.CNM [facility] 09-13-2024 Miscellaneous Notes AMBERLY-S: Dona Gutierrez is [...] Zina Jensen APRN.CNM documented in this encounter [facility] 09-13-2024 Instructions Valente Cotton MA - 09/13/2024 3:26 PM EST SEQUENTIAL SCREENINGS The [facility] offers sequential screenings for women who are [...] It will require an appointment with our process maintenance technician. This is not an ultrasound performed [...] the above symptoms, contact our office at [phone] and ask to speak with a nurse. After hours, you can call doctors registry at [phone] OR call [facility] at [phone] and ask to have the doctor salesperson burial plots paged. If you consider this an emergency, dial 9-1-7 or go to your nearest emergency department. NEED HELP? Are you dealing with a violent or abusive relationship? Are you a victim of rape or sexual assult? Call [facility] ([place]) 24 hour Crisis Hotline: 750.475.1346 or 496-049-8826. MANUAL Your Guide to a Healthy manual is now on-line. Visit [email or web address] [place] to download your free copy documented in this encounter [facility] 09-11-2024 Progress note Formatting of t his [...] call RTO as scheduled Zina Jensen APRN.CNM [facility] 09-11-2024 Miscellaneous Notes AMBERLY-S: Dona Gutierrez is [...] Zina Jensen APRN.CNM documented in this encounter [facility] 09-03-2024 Instructions Sofie Danielson LPN - 09/03/2024 2:15 PM EST SEQUENTIAL SCREENINGS The [facility] offers sequential screenings for women who are [...] It will require an appointment with our process maintenance technician. This is not an ultrasound performed [...] the above symptoms, contact our office at [phone] and ask to speak with a nurse. After hours, you can call doctors registry at [phone] OR call [facility] at [phone] and ask to have the doctor salesperson burial plots paged. If you consider this an emergency, dial 9--1 or go to your nearest emergency department. NEED HELP? Are you dealing with a violent or abusive relationship? Are you a victim of rape or sexual assult? Call [facility] ([place]) 24 hour Crisis Hotline: 522.698.5229 or 928-469-8129. MANUAL Your Guide to a Healthy manual is now on-line. Visit [email or web address]/[email or web address] [place] to download your free copy documented in this encounter [facility] 09-02-2024 Telephone encounter Note Patient called and appointment scheduled. Kristen Patterson RN [facility] 09-02-2024 Miscellaneous Notes Patient called and appointment [...] Lydia Chen RN documented in this encounter [facility] 09-02-2024 Telephone encounter Note Patient does not need seen in office today at this time. There are no openings. Please assist with getting patient into office this week. Vicky Engel APRN.CNM [facility] Work Phone: 09-02-2024 Telephone encounter Note 11w1d Patient called with several complaints. Urine has been cloudy for the last couple of days. Denies dysuria or frequency. Hx of frequent UTI. Also, having brown spotting while on pelvic rest. Doppler at home the FHT was 190 which concerned her. Would you like patient seen in office this afternoon? Lydia Chen RN [facility] 08-20-2024 Note Addended by: ZINA JENSEN on: 08/20/2024 09:50 AM Modules accepted: Orders [facility] 08-20-2024 Miscellaneous Notes Addended by: ZINA JENSEN [...] Zina Jensen APRN.CNM documented in this encounter [facility] 08-20-2024 Progress note Formatting of t his [...] 3wk for NT US. Zina Jensen APRN.CNM [facility] 08-20-2024 Instructions Valente Cotton MA - 08/20/2024 9:19 AM EST SEQUENTIAL SCREENINGS The [facility] offers sequential screenings for women who are [...] It will require an appointment with our process maintenance technician. This is not an ultrasound performed [...] the above symptoms, contact our office at [phone] and ask to speak with a nurse. After hours, you can call doctors registry at [phone] OR call [facility] at [phone] and ask to have the doctor salesperson burial plots paged. If you consider this an emergency, dial 9-1-3 or go to your nearest emergency department. NEED HELP? Are you dealing with a violent or abusive relationship? Are you a victim of rape or sexual assult? Call [facility] ([place]) 24 hour Crisis Hotline: 805.661.2686 or 410-864-1661. MANUAL Your Guide to a Healthy manual is now on-line. Visit [email or web address]/[email or web address] [place] to download your free copy documented in this encounter [facility] 08-12-2024 Progress note Formatting of t his note might be different from the original. [place] today, see progress note. Uncertain about NIPT. Carrier screening previously, will bring results. Follow up in one week due to tissue present at cervical os. Zina Jensen APRN.CNM [facility] 08-12-2024 Miscellaneous Notes [place] today, see progress note. Uncertain about NIPT. Carrier screening previously, will bring results. Follow up in one week due to tissue present at cervical os. Zina Jensen APRN.CNM documented in this encounter [facility] 08-12-2024 Note HNO ID: [id number] Author: VALENTE COTTON MA Service: ? Author Type: Web Operations Administrator Type: Progress Notes Filed: 08/12/2024 16:13 Note Text: OB point of care ultrasound was performed. See imaging tab for details. Valente Cotton MA [facility] 08-12-2024 History of Present illness Narrative [...] the following (please check all that apply)? 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 As applicable, any other physician, advance practice provider, medical student, or other health professional student that will be observing or involved in the sensitive examination for educational or training purposes was discussed with the Patient or Authorized Infertility Medical Assistant. The Patient or Authorized Infertility Medical Assistant has agreed to proceed with the sensitive [...] Your guide to a health and the Documentation Coordinator. Discussed hemoglobin electrophoresis. Patient: Accepts Reviewed midwifery and metal plater services that are available. 2) Screening: Hemoglobin [...] prsagrario Jensen APRN.CNM documented in this encounter [facility] 08-07-2024 Note HNO ID: [id number] Author: ZINA JENSEN APRN.CNM Service: ? Author Type: Usability Architect Type: Progress Notes Filed: 08/12/2024 16:13 Note [...] the following (please check all that apply)? 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 [facility] 08-07-2024 Instructions Valente Cotton MA - 08/07/2024 3:19 PM EST Please select the following link to access the [facility] Your Guide to a Healthy . [email or web address] Please select the following link to access the [facility] Your Guide to a Healthy . [email or web address] documented in this encounter [facility] 07-31-2024 Telephone encounter Note Patient notified and scheduled. Lacey Mazariegos RN [facility] 07-31-2024 Miscellaneous Notes Patient notified and scheduled. [...] Zina Jensen APRN.CNM documented in this encounter [facility] 07-31-2024 Telephone encounter Note Can you please [...] on 08/13. Thank you, Zina Jensen APRN.CNM [facility] Work Phone: 04-10-2024 Telephone encounter Note Message sent to patient. Instructed patient to contact medical records to have her records sent to another healthcare provider. Jennifer Puri RN April 10, 2024 3:[address] [facility] 04-10-2024 Miscellaneous Notes Message sent to patient. Instructed patient to contact medical records to have her records sent to another healthcare provider. 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 Will do office hysteroscopy. I spent a total of 40 minutes on the date of the service which included preparing to see the patient, diuy-jf-yhao patient care, completing clinical documentation, counseling and educating the patient/family/caregiver, and ordering medications, tests, or procedures. MD HAYDEE Barnhart Frozen Embryo Transfer Treatment Plan: Number of embryos: one Uterine cavity testing: office hysteroscopy Protocol: Natural If programmed, type of estradiol: N/A Type of progesterone: progesterone supp 200 mg bid OK for OCPs to delay cycle start if needed: Yes Brad Rodriguez. 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 Will do office hysteroscopy. I spent a total of 40 minutes on the date of the service which included preparing to see the patient, zeyb-vv-dhgo patient care, completing clinical documentation, counseling and [...] Victor MD 04/02/2024 documented in this encounter [facility] 04-02-2024 Note HNO ID: [id number] Author: BRAD RODRIGUEZ MD Service: ? Author [...] which included preparing to see the patient, gcnu-ub-nghd patient care, completing clinical documentation, counseling and educating the patient/family/caregiver, and ordering medications, tests, or procedures. Brad Rodriguez MD HAYDEE Frozen Embryo Transfer Treatment Plan: Number of embryos: one Uterine cavity testing: office hysteroscopy Protocol: Natural If programmed, type of estradiol: N/A Type of progesterone: progesterone supp 200 mg bid OK for OCPs to delay cycle start if needed: Yes Brad Rodriguez. 04/02/2024 [facility] 04-02-2024 History of Present illness Narrative [...] which included preparing to see the patient, lrif-qs-tsde patient care, completing clinical documentation, counseling and [...] Brad Rodriguez. 04/02/2024 documented in this encounter [facility] 09-18-2023 History of Present illness Narrative Images from the original note were not included. REPRODUCTIVE ENDOCRINOLOGY AND INFERTILITY RETURN PATIENT CLINIC NOTE No call, no show for scheduled visit today. Lalit Pritchard MD October 01, 2023 9:55 PM documented in this encounter [facility] 07-21-[address] Pritchard, patient needs to follow up before making plans for FET #2. Mychart sent to patient. Paige Madrigal RN July 21, 2023 3:00 PM documented in this encounter [facility] 07-17-2023 Miscellaneous Notes Return call. Wants to set up FET #2 in September or October. May call financial to self pay for FET if she decides not to keep current insurance. Will message Dr. Pritchard about another FET cycle and confirm plan. Paige Madrigal RN July 17, 2023 4:07 PM On day 5 of current cycle. documented in this encounter [facility] 06-29-2023 Procedure note WHI HAYDEE TRANSFER PROCEDURE NOTE Date: 06/22/2023 Primary Proceduralist: Lalit Pritchard MD Pharmacy Technician Infusion(s): Not applicable Informed Consent: Consents and Labels Consent Signed: Informed Consent obtained and on the chart Labels Verified With Patient: Yes Indications: Dona Gutierrez, is a 33 year old female here today for Embryo Transfer. [place] Protocol: UNIVERSAL PROTOCOL / SAFETY CHECKLIST Procedure [...] TIME: 6:03 PM documented in this encounter [facility] 06-22-2023 History of Present illness Narrative Embryo Transfer procedure performed. Detailed notes can be found in the paper chart in the [facility] - SENIOR FRONT END DEVELOPER Office. Patricia Gregory documented in this encounter [facility] 06-22-2023 Instructions Vicky Barnes RN - 06/22/2023 1:38 PM EDT POST EMBRYO TRANSFER INSTRUCTIONS You will need to have your blood drawn for Quantitative HCG on 07/06/2023 at g[facility]. You can expect to be called the afternoon of your blood draw with your test results. If for any reason that date or location is changed, please call [phone] to inform us. Continue your current medications [...] If you have any questions, please call [phone]. documented in this encounter [facility] 06-21-2023 Miscellaneous Notes Your frozen embryo transfer [...] N Pablo Smiley documented in this encounter [facility] 05-31-2023 History of Present illness Narrative We [...] that the results of genetic testing may mold insert changer time as the field of genetics progresses. [...] consented to pursue germline testing with the [facility] CancerNext Expanded Panel with RNA analysis (core panel BRCA1/2, ordering provider: Elin Paul MD). Sample for testing will be obtained by blood draw today. Dona elected insurance billing. We will contact Dona via preference selected below when results are available. We will make specific follow-up and management recommendations based on the test result. Results Delivery Preference [x] Uploaded directly to [place] [] Telephone call followed by upload to [place] Counseling time spent: 35 minutes Shelby Perry MS, [facility] Licensed Genetic Counselor Comb Machine Operator, Internal Medicine [facility] E-mail: [email or web address] documented in this encounter [facility] 05-16-2023 Miscellaneous Notes Called patient to [...] with next steps documented in this encounter [facility] 05-15-2023 Miscellaneous Notes Called and spoke with pt. Advised her PA for FET was submitted this morning. Will call with a determination. Pt asked when meds can be ordered. Advised as soon as the PT for the FET comes back. Pt would like to know if there is any update on her FET referral documented in this encounter [facility] 05-11-2023 Miscellaneous Notes Let patient know that have not yet destroyed and that I will make a note that we will not destroy the abnormal. Patricia Gregory Ivf Patient talked to [employer] and has an update on the embryos that she has stored here she does not want to destroy any embryos Does have questions regarding the embryos She would really like a call back due to the information that she was just given and the time frame documented in this encounter [facility] 05-10-2023 Miscellaneous Notes Called patient to number [...] on pgt testing documented in this encounter [facility] 05-04-2023 History of Present illness Narrative IVF freeze all cycle. PGT. Treva Zacarias May 04, 2023 1:41 PM documented in this encounter [facility] 05-02-2023 History of Present illness Narrative Dona Gutierrez is a 33 year old here for SIS. Referred by: Racheal Bhatt [id number] [facility] [id number] Chief Complaint: Uterine cavity evaluation Endometrial Biopsy: [...] See ViewPoint for procedure results. Racheal Bhatt APRN.RUBBER GOODS SUPERVISOR documented in this encounter [facility] 04-27-2023 Miscellaneous Notes Pt has SIS scheduled. Thaw plan sent to my chart. Pt will upload thaw plan. Will need to order meds once checklist complete. Babs Garcia April 27, 2023 3:31 PM Please follow up with patient. documented in this encounter [facility] 04-21-2023 Miscellaneous Notes Called patient to number listed, verified pt. Patient reports she is feeling better today, symptoms resolved. She is able to have normal BM and is urinating normally. She Bermudez RN April 21, 2023 11:57 AM Pt waiting for call back reg her plan documented in this encounter [facility] 04-20-2023 Miscellaneous Notes Patient called by lab to give update on embryos. Let patient know that able to biopsy and freeze 1 more today (day 6). Will hold others until tomorrow. Patricia Gregory April 20, 2023 10:33 AM documented in this encounter [facility] 04-19-2023 Miscellaneous Notes Patient called by lab to give update on embryos. 1 blast was biopsied and frozen on day 5. Pablo Smiley April 19, 2023 9:28 AM documented in this encounter [facility] 04-14-2023 History of Present illness Narrative Retrieval procedure performed. Detailed notes can be found in the paper chart in the [facility]- SENIOR FRONT END DEVELOPER Office. Ab Tang IVF Tech documented in this encounter [facility] 04-13-2023 History of Present illness Narrative Component Latest Ref Rng & Units 04/13/2023 LH See comment mIU/mL 99.9 Progesterone See comment ng/mL 8.7 (H) hCG Quantitative, Blood <5.0 mIU/mL 202.0 (H) Trigger labs reviewed in meeting. Nayana Grullon RN April 13, 2023 9:56 AM documented in this encounter [facility] 04-12-2023 Miscellaneous Notes Addended by: KARLA AVILES on: 04/12/2023 03:56 PM Modules accepted: Orders documented in this encounter [facility] 04-12-2023 History of Present illness Narrative The [...] number. Reviewed trigger instructions and sent by [facility]. Pt scheduled for post trigger labs for tomorrow at office 04/13/23. Reviewed retrieval instructions and sent by [facility]. Pt verbalizes understanding. Karla Aviles RN April 12, 2023 2:59 PM documented in this encounter [facility] 04-11-2023 History of Present illness Narrative The [...] number. Reviewed IVF plan and sent by [facility], per cycle flowsheet. Patient to return to office 04/12/23. Pt verbalized understanding. plan is to trigger tomorrow for retrieval Monday, if all looks appropriate tomorrow. Message sent to Dr Anne to update. Karla Aviles RN April 11, 2023 2:03 PM documented in this encounter [facility] 04-07-2023 History of Present illness Narrative The [...] number. Reviewed IVF plan and sent by [facility], per cycle flowsheet. Patient to return to office 04/11/23. Pt verbalized understanding. Karla Aviles RN April 07, 2023 1:34 PM documented in this encounter [facility] 04-06-2023 History of Present illness Narrative Nancy [...] 2023 10:14 AM documented in this encounter [facility] 04-05-2023 Miscellaneous Notes Called [facility] to clarify order for Lupron kit with 1 cc insulin syringe. [employer] message sent to update pt. Karla Aviles RN April 05, 2023 11:02 AM documented in this encounter [facility] 04-05-2023 Miscellaneous Notes Called pt to advise of clearance from [facility] for the extension of her IVF. Refund initiated through [facility] for $13,626.00. PT BILLING ULTRASOUNDS TO INSURANCE Pt would like to discuss insurance update documented in this encounter [facility] 04-04-2023 History and physical note HISTORY AND PHYSICAL EXAMINATION GYNECOLOGY SERVICE DATE: 04/04/2023 SERVICE TIME: 7:45 AM PRIMARY CARE PHYSICIAN: Dr. Centeno in [place], [place] CHIEF COMPLAINT/HISTORY OF PRESENT ILLNESS: Ms. [...] requiring medication, no history of angina, CHF, VT, cardiac surgery or stents. Denies rest pain, [...] dialysis. No history of symptoms or problems. CRIME DATA SPECIALIST: No vaginal bleeding due to menopause and [...] TIME: 7:45 AM documented in this encounter [facility] 04-04-2023 History of Present illness Narrative HISTORY AND PHYSICAL EXAMINATION GYNECOLOGY SERVICE DATE: 04/04/2023 SERVICE TIME: 7:45 AM PRIMARY CARE PHYSICIAN: Dr. Centeno in [place], [place] CHIEF COMPLAINT/HISTORY OF PRESENT ILLNESS: Ms. [...] requiring medication, no history of angina, CHF, VT, cardiac surgery or stents. Denies rest pain, [...] dialysis. No history of symptoms or problems. CRIME DATA SPECIALIST: No vaginal bleeding due to menopause and [...] TIME: 7:45 AM documented in this encounter [facility] 04-04-2023 History of Present illness Narrative The patient is here today for follicular ultrasound and blood work. The patient reports no problems or complaints. Ultrasound and blood will be reviewed by the physician, the flow sheet will be updated and instructions will be communicated to the patient. Pt to meet with UX ENGINEER for H&P. Met with pt. Questions answered and reviewed medication that pt has. Karla Aviles RN Called pt by listed phone number. Reviewed IVF plan and sent by [facility], per cycle flowsheet. Patient to return to office 04/07/23. Pt verbalized understanding. Karla Aviles RN April 04, 2023 3:17 PM documented in this encounter [facility] 03-28-2023 History of Present illness Narrative The [...] scanned. Reviewed potential timeline and antagonist protocol. [id number], Menopur and Cetrotide. Karla Aviles RN Called pt by listed phone number. Reviewed IVF plan and sent by [facility], per cycle flowsheet. Patient to return to office 04/04/23. Pt verbalized understanding. Karla Aviles RN March 28, 2023 3:03 PM documented in this encounter [facility] 03-03-2023 Miscellaneous Notes Pts pharmacy calling in regards to pts gonnel f ,needing clarification about the directions and the hcg medication questions documented in this encounter [facility] 02-28-2023 Miscellaneous Notes Called pt and reviewed [...] surgery dr delacruz documented in this encounter [facility] 02-24-2023 Miscellaneous Notes Called pt by listed phone number. Reviewed OCP instructions. Reviewed potential timeline. Pt verbalizes understanding. Karla Aviles RN February 24, 2023 4:50 PM Pt needs to start meds sneha speaking with Nurse Karla documented in this encounter [facility] 02-24-2023 Miscellaneous Notes Called pt by listed [...] please call patient. documented in this encounter [facility] 02-23-2023 Miscellaneous Notes Signing off medication orders-patient [...] to schedule baseline. New medications ordered to [facility] specialty pharmacy as requested. Pt reminded to [...] on bc pills documented in this encounter [facility] 12-21-2022 Miscellaneous Notes Received [facility] message from pt. Attempted to call pt [...] 2022 3:42 PM documented in this encounter [facility] 12-19-2022 Miscellaneous Notes Called pt by listed [...] needs to follow up with urologist at [facility], his sperm was sent from [facility] and Dr. Baker requested patient he meet with urologist, there may be only a few sperm in sample from [facility]. may need another surgery with [facility]. His name is Benedict Gutierrez [facility] 1990, please follow up with patient. [place] had referred patient inquiring if [place] can be billed for services. Patient is having records faxed to Karla. Patient inquiring about having surgery the day of her retrieval. documented in this encounter [facility] 12-07-2022 History of Present illness Narrative Patient [...] IVF requirements sent to the patient via [employer]Partyhart- Yes Patient reminded to call us with start of periods- Yes Previous Fertility Treatment? - No. Started care at [facility] 0P 0 AB 0 LMP 11/24/22, Cycles- 28 days Episode created- yes / Protocol- Antagonist Will monitor at [facility] yearly exam/PAP - Need Uterine [...] Nursing reviewed with patient and Sent via [employer]Partyhart Is there anything special we should know [...] 2022 9:57 AM documented in this encounter [facility] 12-05-2022 History of Present illness Narrative Images from the original note were not included. [id number] Dona Gutierrez 12/05/2022 REFERRING/PRIMARY PROVIDER(S) -Referring Provider for today's consult: Erik Cheng MD -Primary Care Provider: No primary care provider on file. HISTORY OF PRESENT ILLNESS Dona Gutierrez is a premenopausal 32 y.o. White female who presents to the [facility] for risk assessment and [...] in near future, w/ Dr. Koenig in [facility] at [facility]. She has a family history of breast cancer in her paternal grandmother at 50yrs, with 3 recurrences and a maternal aunt at 51 yrs. She denies any current or new breast concerns, including lumps, skin changes, nipple changes/discharge or pain. She reports that she examines her breasts occasionally. PERSONAL BREAST & CRIME DATA SPECIALIST HISTORY Breast biopsy: No Breast cysts: Yes Left 5:00 on 2020 Breast surgery: No Chemoprevention: No Intact uterus and ovaries: Yes Contraception: None currently; attempting - pursuing IVF SCREENING & HEALTH MAINTENANCE Colonoscopy: never Skin cancer screening: Not regularly Eye exams: Not regularly Dental exams: Twice annually BMD: never Vitamin D deficiency: None known CRIME DATA SPECIALIST exams: regularly RISK FACTORS FOR BREAST CANCER Social History Social History Narrative CRIME DATA SPECIALIST: No LMP recorded.. Last PAP: 2021 Para: [...] new breast concerns. Patient offered a medical fine arts chair for sensitive exam. Patient declined fine arts chair. documented in this encounter [facility] 12-05-2022 Instructions MARCOS Laura - 12/05/2022 [...] are many programs offered here at the [facility] for assistance with smoking cessation. Exercise: Studies [...] your enjoyment level documented in this encounter [facility] 11-15-2022 Miscellaneous Notes IVF #1 CLEARED - Auth and referral# [id number]. Pt approved for IVF with ICSI, asst hatching, cryo and storage. DOS are 11/29/22 - 03/01/23 Next steps for ivf referral [id number] placed. Patient states she has coverage. Please call patient. documented in this encounter [facility] 10-27-2022 Miscellaneous Notes LMOVM and sent mychart [...] 2022 11:41 AM documented in this encounter [facility] 10-24-2022 Consult note Formatting of th is note is different from the original. VIRTUAL VISIT PROGRESS NOTE This is a virtual visit using [employer] video visit. It required patient-provider interaction for [...] Hysteroscopy Laparoscopy OPK (Ovulation Predictor Kit) Ovarian [place] Ultrasound Semen Analysis Ultrasound Other (See [...] Team: Discuss medical insurance benefits and likely [id number] costs of IVF. IVF nurse coordinator: Schedule [...] which included preparing to see the patient, [id number] patient care, completing clinical documentation, obtaining and/or reviewing separately obtained history, counseling and educating the patient/family/caregiver, ordering medications, tests, or procedures, communicating with other HCPs (not separately reported), independently interpreting results (not separately reported), and communicating results to the patient/family/caregiver. 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 Patient desires Unspecified procreative management Encounter for fertility planning Other specified procreative management [facility] Diagnosis Fibrocystic breast changes, bilateral- Primary Family history of breast cancer Family history of malignant neoplasm of breast Family history of prostate cancer Family history of malignant neoplasm of prostate At high risk for breast cancer [facility] testing- Primary [facility] Diagnosis Female infertility- Primary Female infertility of unspecified origin Encounter of female for testing for genetic disease carrier status for procreative management Testing of female for genetic disease carrier status [facility] Diagnosis Female infertility- Primary Female infertility of unspecified origin [facility] Diagnosis Preop examination- Primary Preoperative examination, unspecified Encounter for male factor infertility in female patient Female infertility of other specified origin [facility] Diagnosis Female infertility Female infertility of unspecified origin [facility] Diagnosis Female infertility- Primary Female infertility of unspecified origin Procreative management Unspecified procreative management documented in this encounter [facility] note* Diagnosis Female infertility Female infertility of unspecified origin documented in this encounter [facility] note* Diagnosis Female infertility Female infertility of unspecified origin Encounter for fertility preservation procedure documented in this encounter [facility] note* Diagnosis Primary female infertility- Primary Female infertility of unspecified origin documented in this encounter [facility] note* Diagnosis Female infertility Female infertility of unspecified origin documented in this encounter [facility] note* Diagnosis Female infertility Female infertility of unspecified origin documented in this encounter [facility] note* Diagnosis Female infertility- Primary Female infertility of unspecified origin documented in this encounter [facility] note* Diagnosis Pre-procedural laboratory examination- Primary Female infertility Female infertility of unspecified origin documented in this encounter [facility] note* Diagnosis Female infertility- Primary Female infertility of unspecified origin documented in this encounter [facility] note* Diagnosis Family history of breast cancer- Primary Family history of malignant neoplasm of breast [facility] Diagnosis Female infertility- Primary Female infertility of unspecified origin documented in this encounter [facility] note* Diagnosis examination or test, unconfirmed- Primary Infertility, female Female infertility of unspecified origin documented in this encounter [facility] note* Diagnosis H/O penicillin-type antibiotic allergy- Primary Personal history of allergy to penicillin documented in this encounter [facility] note* Diagnosis No-show for appointment- Primary documented in this encounter [facility] note* Diagnosis Female infertility- Primary Female infertility of unspecified origin Fertility testing documented in this encounter [facility] note* Diagnosis Female infertility- Primary Female infertility of unspecified origin Encounter for fertility testing Fertility testing documented in this encounter [facility] note* Diagnosis with uncertain dates, antepartum- Primary [...] and obstetric disorders [facility] Diagnosis 9 weeks gestation of - Primary state, incidental Family history of congenital heart defect Family history of congenital anomalies [facility] Diagnosis Urinary frequency- Primary Cloudy urine Other nonspecific finding on examination of urine [facility] Diagnosis Encounter for (NT) nuchal translucency scan- Primary Other specified screening with uncertain dates, antepartum state, incidental Encounter for routine screening for malformation using ultrasonics [facility] Diagnosis Encounter for supervision of normal first in first trimester- Primary Supervision of normal first 12 weeks gestation of state, incidental with uncertain dates, antepartum state, incidental History of posttraumatic stress disorder (PTSD) History of asthma Personal history of other diseases of respiratory system ERICK (generalized anxiety disorder) Generalized anxiety disorder [facility] Diagnosis Encounter for supervision of normal [...] of respiratory system [facility] Diagnosis Encounter for supervision of [...] of respiratory system [facility] Diagnosis Encounter for anatomic survey- Primary 20 weeks gestation of state, incidental [facility] Diagnosis Maternal care for (suspected) abnormality and damage, unspecified, fetus 1 [O35.9XX1]- Primary [facility] Diagnosis Encounter for supervision of normal first in second trimester (HCC)- Primary Supervision of normal first History of posttraumatic stress disorder (PTSD) Rh negative state in antepartum period, first trimester ([facility]) ERICK (generalized anxiety disorder) Generalized anxiety disorder Family history of congenital heart defect Family history of congenital anomalies 24 weeks gestation of ([facility]) state, incidental Screening for diabetes mellitus [facility] Diagnosis Encounter for supervision of normal first in second trimester ([facility])- Primary Supervision of normal first 28 weeks gestation of ([facility]) state, incidental History of posttraumatic stress disorder (PTSD) Generalized anxiety disorder Family history of congenital heart defect Family history of congenital anomalies Rh negative state in antepartum period, first trimester ([facility]) History of asthma Personal history of other diseases of respiratory system Excessive weight gain in , third trimester ([facility]) 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 [facility] Diagnosis Maternal care for (suspected) abnormality and damage, unspecified, fetus 1 ([facility])- Primary documented in this encounter [facility] note* Diagnosis Encounter for supervision of normal first in second trimester ([facility])- Primary Supervision of normal first History of posttraumatic stress disorder (PTSD) Family history of congenital heart defect Family history of congenital anomalies 30 weeks gestation of ([facility]) state, incidental PTSD (post-traumatic stress disorder) Posttraumatic stress disorder ERICK (generalized anxiety disorder) Generalized anxiety disorder Family history of hypothyroidism Family history of other endocrine and metabolic diseases [facility] Diagnosis Encounter for screening for malformation using ultrasound ([facility])- Primary 30 weeks gestation of ([facility]) state, incidental documented in this encounter [facility] note* Diagnosis Encounter for supervision of normal first in third trimester ([facility])- Primary Supervision of normal first History of bowel resection 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 32 weeks gestation of (HCC) state, incidental 34 weeks gestation of ([facility])- Primary state, incidental Encounter for supervision of normal first in third trimester ([facility]) Supervision of normal first ERICK (generalized anxiety disorder) Generalized anxiety disorder History of bowel resection 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 documented in this encounter [facility] note* Diagnosis Encounter for supervision of normal first in third trimester ([facility])- Primary Supervision of normal first History of bowel resection 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 32 weeks gestation of ([facility]) state, incidental 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, antepartum, single or unspecified fetus ([facility])- Primary documented in this encounter [facility] note* Diagnosis Encounter for supervision of normal first in third trimester ([facility])- Primary Supervision of normal first History of bowel resection 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 32 weeks gestation of ([facility] [facility]) state, incidental Encounter for supervision of normal first in third trimester ([facility])- Primary Supervision of normal first 28 weeks gestation of ([facility]) state, incidental 36 weeks gestation of ([facility]) state, incidental Cavernoma Congenital vascular hamartomas History of intestinal surgery Other postprocedural status Encounter for supervision of normal first in first trimester ([facility]) Supervision of normal first documented in this encounter [facility] note* Diagnosis Encounter for supervision of normal first in third trimester ([facility])- Primary Supervision of normal first History of bowel resection 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 32 weeks gestation of ([facility]) state, incidental Supervision of high risk in third trimester ([facility])- Primary Unspecified high-risk 37 weeks gestation of ([facility]) state, incidental Positive GBS test Adverse effect of penicillamine, initial encounter * Assessment & Plan Note - Valerio Leon MD - 03/05/2025 4:16 PM EDT Associated Problem(s): Positive GBS test allergy testing, if not done [facility] Orders: URINE OB DIP B/O documented in this encounter [facility] note* Diagnosis Encounter for supervision of normal first in third trimester ([facility])- Primary Supervision of normal first History of bowel resection 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 32 weeks gestation of ([facility]) state, incidental Supervision of high risk in third trimester ([facility])- Primary Unspecified high-risk 37 weeks gestation of ([facility]) state, incidental Positive GBS test Adverse effect of penicillamine, initial encounter 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 documented in this encounter [facility] note* Diagnosis Encounter for supervision of normal first in third trimester ([facility])- Primary Supervision of normal first History of bowel resection 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 32 weeks gestation of ([facility]) state, incidental Supervision of high risk in third trimester ([facility])- Primary Unspecified high-risk 37 weeks gestation of ([facility]) state, incidental Positive GBS test Adverse effect of penicillamine, initial encounter Supervision of high risk in third trimester ([facility])- Primary Unspecified high-risk 38 weeks gestation of ([facility]) state, incidental Cavernoma Congenital vascular hamartomas Positive GBS test Family history of congenital heart defect Family history of congenital anomalies Penicillin allergy Personal history of allergy to penicillin Rh negative state in antepartum period, first trimester ([facility]) ERICK (generalized anxiety disorder) Generalized anxiety disorder PTSD (post-traumatic stress disorder) Posttraumatic stress disorder History of posttraumatic stress disorder (PTSD) documented in this encounter [facility] note* Diagnosis Encounter for supervision of normal first in third trimester ([facility])- Primary Supervision of normal first History of bowel resection 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 32 weeks gestation of ([facility]) state, incidental Supervision of high risk in third trimester ([facility])- Primary Unspecified high-risk 37 weeks gestation of ([facility]) state, incidental Positive GBS test Adverse effect of penicillamine, initial encounter 39 weeks gestation of ([facility])- Primary state, incidental Supervision of high risk in third trimester ([facility]) Unspecified high-risk Positive GBS test 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 Patient reports cleared by [facility] anesthesia and will confirm this is on patient's L&D chart. * Assessment & Plan Note - Bebeto Valencia MD - 03/20/2025 10:35 AM EDTAssociated Problem(s): Positive GBS test Orders: URINE OB DIP B[facility] Diagnosis 30 weeks gestation of ([facility])- [...] Congenital vascular hamartomas documented in this encounter [facility] for referral (narrative)* Consultation (Routine) - New Request Specialty Diagnoses / Procedures Referred By Fish garcia Referred To Contact Genetics Diagnoses Family history of breast cancer Family history of prostate cancer Eileen House APRN-CNP [address] [place] [address] Referral ID Status Reason Start Date Expiration Date V isits Requested Visits Authorized [id number] New Request 12/05/2022 12/30/2023 1 1 [facility] for referral (narrative)* Diagnostic Procedure Only (Routine) - Authorized Specialty Diagnoses / Procedures Referred By Contac t Referred To Contact [facility] Diagnoses Female infertility Procedures FOLLICULAR US WHI US PELVIC NONOBSTETRIC IMAGE [facility]U Racheal Bhatt APRN.CNP [address] [place] [address] [address] Referral ID Status Reason Start Date Expiration Date Visits Requested Visits Authorized [id number] Authorized Auto-Generat ed Referral 03/23/2023 09/03/2023 6 6 [facility] for referral (narrative)* Diagnostic Procedure Only (Routine) - Pending Review Specialty Diagnoses / Procedures Referred By Contac t Referred To Contact [facility] Diagnoses Female infertility Procedures FOLLICULAR US I US PELVIC NONOBSTETRIC IMAGE [facility]/F/U Lalit Pritchard MD [address] [place] [address] [address] Referral ID Status Reason Start Date Expiration Date Visits Requested Visits Authorized [id number] Pending Review Auto-Generat ed Referral 05/16/2023 05/15/2024 1 1 [facility] for referral (narrative)* Outpatient Procedure (Routine) - New Request Specialty Diagnoses / Procedures Referred By Contac t Referred To Contact [facility] Diagnoses Fertility testing Procedures OFFICE HYSTEROSCOPY HYSTEROSCOPY BX ENDOMETRIUM&/POLYPC W/WO D&C Brad Rodriguez MD [address] [place] [address] [facility] [address] [place] [address] Referral ID Status Reason Start Date Expiration Date Visits Requested Visits Authorized [id number] New Request Auto-Generat ed Referral 04/02/2024 04/02/2025 1 1 [facility] for referral (narrative)* Outpatient Procedure (Routine) - New Request Specialty Diagnoses / Procedures Referred By Contac t Referred To Contact [facility] Diagnoses Encounter for fertility testing Procedures OFFICE HYSTEROSCOPY HYSTEROSCOPY BX ENDOMETRIUM&/POLYPC W/WO D&C Racheal Bhatt APRN.CNP [address] [place] [address] [address] Referral ID Status Reason Start Date Expiration Date Visits Requested Visits Authorized [id number] New Request Auto-Generat ed Referral 04/23/2024 04/16/2025 1 1 [facility] for referral (narrative)* Diagnostic Procedure Only (Routine) - Pending Review Specialty Diagnoses / Procedures Referred By Contac t Referred To Contact [facility] Diagnoses with uncertain dates, antepartum Procedures NUCHAL TRANSLUCENCY WHI US NUCHAL TRANSLUCENCY 1ST GESTATION Zina Jensen APRN.CNM [address] [place] [address] [facility] [place] [address] [place] [address] Referral ID Status Reason Start Date Expiration Date Visits Requested Visits Authorized [id number] Pending Review Auto-Generat ed Referral 08/12/2024 08/12/2025 1 1 * Diagnostic Procedure Only (Routine) - Pending Review Specialty Diagnoses / Procedures Referred By Contac t Referred To Contact [facility] Diagnoses with uncertain dates, antepartum Procedures OBSTETRIC ULTRASOUND WHI US PREG UTERUS AFTER 1ST TRIMEST GESTATION Zina Jensen APRN.CNM [address] [place] [address] [address] Referral ID Status Reason Start Date Expiration Date Visits Requested Visits Authorized [id number] Pending Review Auto-Generat ed Referral 08/12/2024 08/12/2025 1 1 [facility] for referral (narrative)* Outpatient Procedure (Routine) - New Request Specialty Diagnoses / Procedures Referred By Contac t Referred To Contact [facility] Diagnoses 9 weeks gestation of Family history of congenital heart defect Procedures ECHO Zina Jensen APRN.CNM [address] [place] [address] [address] Referral ID Status Reason Start Date Expiration Date Visits Requested Visits Authorized [id number] New Request Auto-Generat ed Referral 08/20/2025 1 1 [facility] for visit Narrative* Diagnostic Procedure Only (Routine) - Authorized Specialty Diagnoses / Procedures Referred By Contac t Referred To Contact [facility] Diagnoses Female infertility Procedures FOLLICULAR US WHI US PELVIC NONOBSTETRIC IMAGE [facility] LIMITED/F/U Racheal Bhatt APRN.[employer] [address] [place] [id number] [address] Referral ID Status Reason Start Date Expiration Date Visits Requested Visits Authorized [id number] Authorized Auto-Generat ed Referral 03/23/2023 09/03/2023 6 6 [facility] for visit Narrative* Diagnostic Procedure Only (Routine) - Closed Specialty Diagnoses / Procedures Referred By Contac t Referred To Contact [facility] Diagnoses Female infertility Procedures SONOHYSTEROGRAPHY (SIS) US WHI SALINE INFUS SONOHYSTEROGRAPHY W/COLOR DOPPLER Racheal Bhatt APRN.[employer] [address] [place] [address] [facility] [place] [address] [place] [address] Referral ID Status Reason Start Date Expiration Date V isits Requested Visits Authorized [id number] Closed Auto-Generate d Referral 04/28/2023 09/03/[address] [facility] Summary Purpose Family History No Family History Records FoundNo Family History Records FoundNo Family History Records FoundNo Family History Records Found Advance Directives No Advanced Directives Records FoundNo Advanced Directives Records FoundNo Advanced Directives Records FoundNo Advanced Directives Records Found Reason for Referral Specialty Diagnoses / Procedures Referred By Fish t Referred To Contact Racheal Bhatt APRN.[employer] [address] [place] [address] Referral ID Status Reason Start Date Expiration Date Visits Re quested Visits Authorized [id number] Closed 1 1 Referral ID Status Reason Start Date Expiration Date Visits Re quested Visits Authorized [id number] Closed 1 1 Referral ID Status Reason Start Date Expiration Date Visits Re quested Visits Authorized [id number] Closed 1 1 Additional Source Comments Goals [...] or prosecute any alcohol or drug abuse patient.[facility] HospitalIn the event this information is protected by the Federal Confidentiality of Alcohol and Drug Abuse Patient Records regulations: The Federal rules restrict any use of the information to criminally investigate or prosecute any alcohol or drug abuse patient.[facility] HospitalIn the event this information is protected by the Federal Confidentiality of Alcohol and Drug Abuse Patient Records regulations: The Federal rules restrict any use of the information to criminally investigate or prosecute any alcohol or drug abuse patient.[facility] HospitalIn the event this information is protected by the Federal Confidentiality of Alcohol and Drug Abuse Patient Records regulations: The Federal rules restrict any use of the information to criminally investigate or prosecute any alcohol or drug abuse patient.[facility] HospitalIn the event this information is protected by the Federal Confidentiality of Alcohol and Drug Abuse Patient Records regulations: The Federal rules restrict any use of the information to criminally investigate or prosecute any alcohol or drug abuse patient.[facility] HospitalIn the event this information is protected by the Federal Confidentiality of Alcohol and Drug Abuse Patient Records regulations: The Federal rules restrict any use of the information to criminally investigate or prosecute any alcohol or drug abuse patient.[facility] HospitalIn the event this information is protected by the Federal Confidentiality of Alcohol and Drug Abuse Patient Records regulations: The Federal rules restrict any use of the information to criminally investigate or prosecute any alcohol or drug abuse patient.[facility] HospitalIn the event this information is protected by the Federal Confidentiality of Alcohol and Drug Abuse Patient Records regulations: The Federal rules restrict any use of the information to criminally investigate or prosecute any alcohol or drug abuse patient.[facility] HospitalIn the event this information is protected by the Federal Confidentiality of Alcohol and Drug Abuse Patient Records regulations: The Federal rules restrict any use of the information to criminally investigate or prosecute any alcohol or drug abuse patient.[facility] HospitalIn the event this information is protected by the Federal Confidentiality of Alcohol and Drug Abuse Patient Records regulations: The Federal rules restrict any use of the information to criminally investigate or prosecute any alcohol or drug abuse patient.[facility] HospitalIn the event this information is protected by the Federal Confidentiality of Alcohol and Drug Abuse Patient Records regulations: The Federal rules restrict any use of the information to criminally investigate or prosecute any alcohol or drug abuse patient.[facility] HospitalIn the event this information is protected by the Federal Confidentiality of Alcohol and Drug Abuse Patient Records regulations: The Federal rules restrict any use of the information to criminally investigate or prosecute any alcohol or drug abuse patient.[facility] HospitalIn the event this information is protected by the Federal Confidentiality of Alcohol and Drug Abuse Patient Records regulations: The Federal rules restrict any use of the information to criminally investigate or prosecute any alcohol or drug abuse patient.[facility] HospitalIn the event this information is protected by the Federal Confidentiality of Alcohol and Drug Abuse Patient Records regulations: The Federal rules restrict any use of the information to criminally investigate or prosecute any alcohol or drug abuse patient.[facility] HospitalIn the event this information is protected by the Federal Confidentiality of Alcohol and Drug Abuse Patient Records regulations: The Federal rules restrict any use of the information to criminally investigate or prosecute any alcohol or drug abuse patient.[facility] HospitalIn the event this information is protected by the Federal Confidentiality of Alcohol and Drug Abuse Patient Records regulations: The Federal rules restrict any use of the information to criminally investigate or prosecute any alcohol or drug abuse patient.[facility] HospitalIn the event this information is protected by the Federal Confidentiality of Alcohol and Drug Abuse Patient Records regulations: The Federal rules restrict any use of the information to criminally investigate or prosecute any alcohol or drug abuse patient.[facility] HospitalIn the event this information is protected by the Federal Confidentiality of Alcohol and Drug Abuse Patient Records regulations: The Federal rules restrict any use of the information to criminally investigate or prosecute any alcohol or drug abuse patient.[facility] HospitalIn the event this information is protected by the Federal Confidentiality of Alcohol and Drug Abuse Patient Records regulations: The Federal rules restrict any use of the information to criminally investigate or prosecute any alcohol or drug abuse patient.[facility] HospitalIn the event this information is protected by the Federal Confidentiality of Alcohol and Drug Abuse Patient Records regulations: The Federal rules restrict any use of the information to criminally investigate or prosecute any alcohol or drug abuse patient.[facility] HospitalIn the event this information is protected by the Federal Confidentiality of Alcohol and Drug Abuse Patient Records regulations: The Federal rules restrict any use of the information to criminally investigate or prosecute any alcohol or drug abuse patient.[facility] HospitalIn the event this information is protected by the Federal Confidentiality of Alcohol and Drug Abuse Patient Records regulations: The Federal rules restrict any use of the information to criminally investigate or prosecute any alcohol or drug abuse patient.[facility] HospitalIn the event this information is protected by the Federal Confidentiality of Alcohol and Drug Abuse Patient Records regulations: The Federal rules restrict any use of the information to criminally investigate or prosecute any alcohol or drug abuse patient.[facility] HospitalIn the event this information is protected by the Federal Confidentiality of Alcohol and Drug Abuse Patient Records regulations: The Federal rules restrict any use of the information to criminally investigate or prosecute any alcohol or drug abuse patient.[facility] HospitalIn the event this information is protected by the Federal Confidentiality of Alcohol and Drug Abuse Patient Records regulations: The Federal rules restrict any use of the information to criminally investigate or prosecute any alcohol or drug abuse patient.[facility] HospitalIn the event this information is protected by the Federal Confidentiality of Alcohol and Drug Abuse Patient Records regulations: The Federal rules restrict any use of the information to criminally investigate or prosecute any alcohol or drug abuse patient.[facility] HospitalIn the event this information is protected by the Federal Confidentiality of Alcohol and Drug Abuse Patient Records regulations: The Federal rules restrict any use of the information to criminally investigate or prosecute any alcohol or drug abuse patient.[facility] HospitalIn the event this information is protected by the Federal Confidentiality of Alcohol and Drug Abuse Patient Records regulations: The Federal rules restrict any use of the information to criminally investigate or prosecute any alcohol or drug abuse patient.[facility] HospitalIn the event this information is protected by the Federal Confidentiality of Alcohol and Drug Abuse Patient Records regulations: The Federal rules restrict any use of the information to criminally investigate or prosecute any alcohol or drug abuse patient.[facility] HospitalIn the event this information is protected by the Federal Confidentiality of Alcohol and Drug Abuse Patient Records regulations: The Federal rules restrict any use of the information to criminally investigate or prosecute any alcohol or drug abuse patient.[facility] HospitalIn the event this information is protected by the Federal Confidentiality of Alcohol and Drug Abuse Patient Records regulations: The Federal rules restrict any use of the information to criminally investigate or prosecute any alcohol or drug abuse patient.[facility] HospitalIn the event this information is protected by the Federal Confidentiality of Alcohol and Drug Abuse Patient Records regulations: The Federal rules restrict any use of the information to criminally investigate or prosecute any alcohol or drug abuse patient.[facility] HospitalIn the event this information is protected by the Federal Confidentiality of Alcohol and Drug Abuse Patient Records regulations: The Federal rules restrict any use of the information to criminally investigate or prosecute any alcohol or drug abuse patient.[facility] HospitalIn the event this information is protected by the Federal Confidentiality of Alcohol and Drug Abuse Patient Records regulations: The Federal rules restrict any use of the information to criminally investigate or prosecute any alcohol or drug abuse patient.[facility] HospitalIn the event this information is protected by the Federal Confidentiality of Alcohol and Drug Abuse Patient Records regulations: The Federal rules restrict any use of the information to criminally investigate or prosecute any alcohol or drug abuse patient.[facility] HospitalIn the event this information is protected by the Federal Confidentiality of Alcohol and Drug Abuse Patient Records regulations: The Federal rules restrict any use of the information to criminally investigate or prosecute any alcohol or drug abuse patient.[facility] HospitalIn the event this information is protected by the Federal Confidentiality of Alcohol and Drug Abuse Patient Records regulations: The Federal rules restrict any use of the information to criminally investigate or prosecute any alcohol or drug abuse patient.[facility] HospitalIn the event this information is protected by the Federal Confidentiality of Alcohol and Drug Abuse Patient Records regulations: The Federal rules restrict any use of the information to criminally investigate or prosecute any alcohol or drug abuse patient.[facility] HospitalIn the event this information is protected by the Federal Confidentiality of Alcohol and Drug Abuse Patient Records regulations: The Federal rules restrict any use of the information to criminally investigate or prosecute any alcohol or drug abuse patient.[facility] HospitalIn the event this information is protected by the Federal Confidentiality of Alcohol and Drug Abuse Patient Records regulations: The Federal rules restrict any use of the information to criminally investigate or prosecute any alcohol or drug abuse patient.[facility] HospitalIn the event this information is protected by the Federal Confidentiality of Alcohol and Drug Abuse Patient Records regulations: The Federal rules restrict any use of the information to criminally investigate or prosecute any alcohol or drug abuse patient.[facility] HospitalIn the event this information is protected by the Federal Confidentiality of Alcohol and Drug Abuse Patient Records regulations: The Federal rules restrict any use of the information to criminally investigate or prosecute any alcohol or drug abuse patient.[facility] HospitalIn the event this information is protected by the Federal Confidentiality of Alcohol and Drug Abuse Patient Records regulations: The Federal rules restrict any use of the information to criminally investigate or prosecute any alcohol or drug abuse patient.[facility] HospitalIn the event this information is protected by the Federal Confidentiality of Alcohol and Drug Abuse Patient Records regulations: The Federal rules restrict any use of the information to criminally investigate or prosecute any alcohol or drug abuse patient.[facility] HospitalIn the event this information is protected by the Federal Confidentiality of Alcohol and Drug Abuse Patient Records regulations: The Federal rules restrict any use of the information to criminally investigate or prosecute any alcohol or drug abuse patient.[facility] HospitalIn the event this information is protected by the Federal Confidentiality of Alcohol and Drug Abuse Patient Records regulations: The Federal rules restrict any use of the information to criminally investigate or prosecute any alcohol or drug abuse patient.[facility] HospitalIn the event this information is protected by the Federal Confidentiality of Alcohol and Drug Abuse Patient Records regulations: The Federal rules restrict any use of the information to criminally investigate or prosecute any alcohol or drug abuse patient.[facility] HospitalIn the event this information is protected by the Federal Confidentiality of Alcohol and Drug Abuse Patient Records regulations: The Federal rules restrict any use of the information to criminally investigate or prosecute any alcohol or drug abuse patient.[facility] HospitalIn the event this information is protected by the Federal Confidentiality of Alcohol and Drug Abuse Patient Records regulations: The Federal rules restrict any use of the information to criminally investigate or prosecute any alcohol or drug abuse patient.[facility] HospitalIn the event this information is protected by the Federal Confidentiality of Alcohol and Drug Abuse Patient Records regulations: The Federal rules restrict any use of the information to criminally investigate or prosecute any alcohol or drug abuse patient.[facility] HospitalIn the event this information is protected by the Federal Confidentiality of Alcohol and Drug Abuse Patient Records regulations: The Federal rules restrict any use of the information to criminally investigate or prosecute any alcohol or drug abuse patient.[facility] HospitalIn the event this information is protected by the Federal Confidentiality of Alcohol and Drug Abuse Patient Records regulations: The Federal rules restrict any use of the information to criminally investigate or prosecute any alcohol or drug abuse patient.[facility] HospitalIn the event this information is protected by the Federal Confidentiality of Alcohol and Drug Abuse Patient Records regulations: The Federal rules restrict any use of the information to criminally investigate or prosecute any alcohol or drug abuse patient.[facility] HospitalIn the event this information is protected by the Federal Confidentiality of Alcohol and Drug Abuse Patient Records regulations: The Federal rules restrict any use of the information to criminally investigate or prosecute any alcohol or drug abuse patient.[facility] HospitalIn the event this information is protected by the Federal Confidentiality of Alcohol and Drug Abuse Patient Records regulations: The Federal rules restrict any use of the information to criminally investigate or prosecute any alcohol or drug abuse patient.[facility] HospitalIn the event this information is protected by the Federal Confidentiality of Alcohol and Drug Abuse Patient Records regulations: The Federal rules restrict any use of the information to criminally investigate or prosecute any alcohol or drug abuse patient.[facility] HospitalIn the event this information is protected by the Federal Confidentiality of Alcohol and Drug Abuse Patient Records regulations: The Federal rules restrict any use of the information to criminally investigate or prosecute any alcohol or drug abuse patient.[facility] HospitalIn the event this information is protected by the Federal Confidentiality of Alcohol and Drug Abuse Patient Records regulations: The Federal rules restrict any use of the information to criminally investigate or prosecute any alcohol or drug abuse patient.[facility] HospitalIn the event this information is protected by the Federal Confidentiality of Alcohol and Drug Abuse Patient Records regulations: The Federal rules restrict any use of the information to criminally investigate or prosecute any alcohol or drug abuse patient.[facility] HospitalIn the event this information is protected by the Federal Confidentiality of Alcohol and Drug Abuse Patient Records regulations: The Federal rules restrict any use of the information to criminally investigate or prosecute any alcohol or drug abuse patient.[facility] HospitalIn the event this information is protected by the Federal Confidentiality of Alcohol and Drug Abuse Patient Records regulations: The Federal rules restrict any use of the information to criminally investigate or prosecute any alcohol or drug abuse patient.[facility] HospitalIn the event this information is protected by the Federal Confidentiality of Alcohol and Drug Abuse Patient Records regulations: The Federal rules restrict any use of the information to criminally investigate or prosecute any alcohol or drug abuse patient.[facility] HospitalIn the event this information is protected by the Federal Confidentiality of Alcohol and Drug Abuse Patient Records regulations: The Federal rules restrict any use of the information to criminally investigate or prosecute any alcohol or drug abuse patient.[facility] HospitalIn the event this information is protected by the Federal Confidentiality of Alcohol and Drug Abuse Patient Records regulations: The Federal rules restrict any use of the information to criminally investigate or prosecute any alcohol or drug abuse patient.[facility] HospitalIn the event this information is protected by the Federal Confidentiality of Alcohol and Drug Abuse Patient Records regulations: The Federal rules restrict any use of the information to criminally investigate or prosecute any alcohol or drug abuse patient.[facility] HospitalIn the event this information is protected by the Federal Confidentiality of Alcohol and Drug Abuse Patient Records regulations: The Federal rules restrict any use of the information to criminally investigate or prosecute any alcohol or drug abuse patient.[facility] HospitalIn the event this information is protected by the Federal Confidentiality of Alcohol and Drug Abuse Patient Records regulations: The Federal rules restrict any use of the information to criminally investigate or prosecute any alcohol or drug abuse patient.[facility] HospitalIn the event this information is protected by the Federal Confidentiality of Alcohol and Drug Abuse Patient Records regulations: The Federal rules restrict any use of the information to criminally investigate or prosecute any alcohol or drug abuse patient.[facility] HospitalIn the event this information is protected by the Federal Confidentiality of Alcohol and Drug Abuse Patient Records regulations: The Federal rules restrict any use of the information to criminally investigate or prosecute any alcohol or drug abuse patient.[facility] HospitalIn the event this information is protected by the Federal Confidentiality of Alcohol and Drug Abuse Patient Records regulations: The Federal rules restrict any use of the information to criminally investigate or prosecute any alcohol or drug abuse patient.[facility] HospitalIn the event this information is protected by the Federal Confidentiality of Alcohol and Drug Abuse Patient Records regulations: The Federal rules restrict any use of the information to criminally investigate or prosecute any alcohol or drug abuse patient.[facility] HospitalIn the event this information is protected by the Federal Confidentiality of Alcohol and Drug Abuse Patient Records regulations: The Federal rules restrict any use of the information to criminally investigate or prosecute any alcohol or drug abuse patient.[facility] HospitalIn the event this information is protected by the Federal Confidentiality of Alcohol and Drug Abuse Patient Records regulations: The Federal rules restrict any use of the information to criminally investigate or prosecute any alcohol or drug abuse patient.[facility] HospitalIn the event this information is protected by the Federal Confidentiality of Alcohol and Drug Abuse Patient Records regulations: The Federal rules restrict any use of the information to criminally investigate or prosecute any alcohol or drug abuse patient.[facility] HospitalIn the event this information is protected by the Federal Confidentiality of Alcohol and Drug Abuse Patient Records regulations: The Federal rules restrict any use of the information to criminally investigate or prosecute any alcohol or drug abuse patient.[facility] HospitalIn the event this information is protected by the Federal Confidentiality of Alcohol and Drug Abuse Patient Records regulations: The Federal rules restrict any use of the information to criminally investigate or prosecute any alcohol or drug abuse patient.[facility] HospitalIn the event this information is protected by the Federal Confidentiality of Alcohol and Drug Abuse Patient Records regulations: The Federal rules restrict any use of the information to criminally investigate or prosecute any alcohol or drug abuse patient.[facility] HospitalIn the event this information is protected by the Federal Confidentiality of Alcohol and Drug Abuse Patient Records regulations: The Federal rules restrict any use of the information to criminally investigate or prosecute any alcohol or drug abuse patient.[facility] HospitalIn the event this information is protected by the Federal Confidentiality of Alcohol and Drug Abuse Patient Records regulations: The Federal rules restrict any use of the information to criminally investigate or prosecute any alcohol or drug abuse patient.[facility] HospitalIn the event this information is protected by the Federal Confidentiality of Alcohol and Drug Abuse Patient Records regulations: The Federal rules restrict any use of the information to criminally investigate or prosecute any alcohol or drug abuse patient.[facility] HospitalIn the event this information is protected by the Federal Confidentiality of Alcohol and Drug Abuse Patient Records regulations: The Federal rules restrict any use of the information to criminally investigate or prosecute any alcohol or drug abuse patient.[facility] HospitalIn the event this information is protected by the Federal Confidentiality of Alcohol and Drug Abuse Patient Records regulations: The Federal rules restrict any use of the information to criminally investigate or prosecute any alcohol or drug abuse patient.[facility] HospitalIn the event this information is protected by the Federal Confidentiality of Alcohol and Drug Abuse Patient Records regulations: The Federal rules restrict any use of the information to criminally investigate or prosecute any alcohol or drug abuse patient.[facility] HospitalIn the event this information is protected by the Federal Confidentiality of Alcohol and Drug Abuse Patient Records regulations: The Federal rules restrict any use of the information to criminally investigate or prosecute any alcohol or drug abuse patient.[facility] HospitalIn the event this information is protected by the Federal Confidentiality of Alcohol and Drug Abuse Patient Records regulations: The Federal rules restrict any use of the information to criminally investigate or prosecute any alcohol or drug abuse patient.[facility] HospitalIn the event this information is protected by the Federal Confidentiality of Alcohol and Drug Abuse Patient Records regulations: The Federal rules restrict any use of the information to criminally investigate or prosecute any alcohol or drug abuse patient.[facility] HospitalIn the event this information is protected by the Federal Confidentiality of Alcohol and Drug Abuse Patient Records regulations: The Federal rules restrict any use of the information to criminally investigate or prosecute any alcohol or drug abuse patient.[facility] HospitalIn the event this information is protected by the Federal Confidentiality of Alcohol and Drug Abuse Patient Records regulations: The Federal rules restrict any use of the information to criminally investigate or prosecute any alcohol or drug abuse patient.[facility] HospitalIn the event this information is protected by the Federal Confidentiality of Alcohol and Drug Abuse Patient Records regulations: The Federal rules restrict any use of the information to criminally investigate or prosecute any alcohol or drug abuse patient.[facility] HospitalIn the event this information is protected by the Federal Confidentiality of Alcohol and Drug Abuse Patient Records regulations: The Federal rules restrict any use of the information to criminally investigate or prosecute any alcohol or drug abuse patient.[facility] HospitalIn the event this information is protected by the Federal Confidentiality of Alcohol and Drug Abuse Patient Records regulations: The Federal rules restrict any use of the information to criminally investigate or prosecute any alcohol or drug abuse patient.[facility] HospitalIn the event this information is protected by the Federal Confidentiality of Alcohol and Drug Abuse Patient Records regulations: The Federal rules restrict any use of the information to criminally investigate or prosecute any alcohol or drug abuse patient.[facility] Reason for Visit (unrecogniz ed section and content) Reason Onset Date Comments Care 12/04/2024 Specialty Diagnoses / Procedures Referred By Fish garcia Referred To Contact Chapter Relations Administrator / SENIOR FRONT END DEVELOPER Diagnoses state, gestational carrier OB Routine OK Per [facility]BER[facility] Procedures OFFICE/OUTPATIENT ESTABLISHED HIGH MDM 40 MIN EST [facility] Zina Jensen APRN.CNM [address] [place] [address] Phone: tel: fax: Referral ID Status Reason Start Date Expiration Date Visits Requested Visits Authorized [id number] Authorized OON Notification Letter 07/25/20 24 07/25/2025 99 99 Reason Comments Infertility Specialty Diagnoses / Procedures Referred By Fish garcia Referred To Contact [facility] Diagnoses Female infertility Procedures FOLLICULAR US I US PELVIC NONOBSTETRIC IMAGE DCMTN LIMITED/F/U Racheal Bhatt APRN.RUBBER GOODS SUPERVISOR [address] [place] [address] [facility] [place] [address] [place] [address] Referral ID Status Reason Start Date Expiration Date V isits Requested Visits Authorized [id number] Closed Auto-Generate d Referral 03/23/2023 09/03/2023 6 6 Specialty Diagnoses / Procedures Referred By Fish garcia Referred To Contact [facility] Diagnoses IVF pckg [place] [address] [place] [address] Ivf Surgery Ctr [facility] [address] [place] [address] Referral ID Status Reason Start Date Expiration Date Visits Requested Visits Authorized [id number] Authorized Financial Clearance Required - Self Pay [...] in near future, w/ Dr. Koenig in [facility]. Specialty Diagnoses / Procedures Referred By Fish gacria Referred To Contact [facility] Diagnoses New- High Risk- Family hx breast ca- maternal grandmother, paternal aunt- faxed referral: Erik Sweeney MD [address] [place] [phone] Referral ID Status Reason Start Date Expiration Date V isits Requested Visits Authorized [id number] New Request 02/15/2022 03/12/2023 1 1 Reason Comments IVF Nurse Teach Specialty Diagnoses / Procedures Referred By Fish garcia Referred To Contact [facility] Diagnoses [place]F [place] [address] [place] [address] Iv[facility] Surgery Ctr [facility] [address] [place] [address] Referral ID Status Reason Start Date Expiration Date Visits Requested Visits Authorized [id number] Authorized Financial Clearance Required - Self Pay [...] Date Expiration Date Visits Requested Visits Authorized [id number] Authorized Auto-Generat ed Referral 03/23/2023 09/03/2023 6 6 Specialty Diagnoses / Procedures Referred By Fish garcia Referred To Contact [facility] Diagnoses IVF pckg [place] [address] [place] [address] Ivf Surgery [facility] [address] [place] [address] Reason Comments she pt waiting for call [...] paternal aunt- faxed referral: Erik Sweeney MD [address] [place] [phone] Referral ID Status Reason Start Date Expiration Date Visits Re quested Visits Authorized [id number] Closed 02/15/2022 03/12/2023 1 1 Referral ID Status Reason Start Date Expiration Date V isits Requested Visits Authorized [id number] Closed Financial Clearance Required - Self Pay [...] other origin [place] [address] [place] [address] Iv[facility] [address] C[facility] [address] [place] [address] Referral ID Status Reason Start Date Expiration Date Visits Requested Visits Authorized [id number] Authorized Patient Cleared INN/SM[facility] Payor Auth Obtained Benefit Check 05/22/2023 08/21/2023 99 99 Reason Comments Cost of FET as self pay patient Karla re fet/please follow up with kim ent Reason Comments Follow Up No Show Reason Comments Infertility Reason Comments pt needs [place] Reason Comments Appointment Reason Comments karla was able to get appt withDr Vig Missed Karla's call Reason Comments Initial OB Visit Reason Onset Date Comments Care 08/20/2024 Specialty Diagnoses / Procedures Referred By Fish garcia Referred To Contact SENIOR FRONT END DEVELOPER Diagnoses NA Procedures NA Special Delivery Clerk [employer] [address] [place] [address] Referral ID Status Reason Start Date Expiration Date Visits Re quested Visits Authorized [id number] 1 1 Reason Comments OB Possible UTI Reason Onset Date Comments Care 09/03/2024 Urinary symptoms . Reason Comments US Specialty Diagnoses / Procedures Referred By Fish garcia Referred To Contact [facility] Diagnoses with uncertain dates, antepartum Procedures NUCHAL TRANSLUCENCY [facility] US NUCHAL TRANSLUCENCY 1ST GESTATION Zina Jensen APRN.ROJAS [address] [place] [address] [facility] [place] [address] [place] [address] Referral ID Status Reason Start Date Expiration Date V isits Requested Visits Authorized [id number] Closed Auto-Generate d Referral 07/25/2024 08/12/2025 1 1 Reason Onset Date Comments Care 09/13/2024 US Specialty Diagnoses / Procedures Referred By Fish garcia Referred To Contact Chapter Relations Administrator / SENIOR FRONT END DEVELOPER Diagnoses state, gestational carrier OB Routine OK Per [facility]BERLY Procedures OFFICE/OUTPATIENT ESTABLISHED HIGH MDM 40 MIN EST [facility] Medical Zina Jensen APRN.CNM [address] [place] [address] Referral ID Status Reason Start Date Expiration Date V isits Requested Visits Authorized [id number] Authorized 07/25/2024 07/25/2025 99 99 Reason Onset Date Comments Care 10/15/2024 Reason Onset Date Comments Care 11/08/2024 Specialty Diagnoses / Procedures Referred By Contac t Referred To Contact Chapter Relations Administrator / SENIOR FRONT END DEVELOPER Diagnoses Encounter for supervision of normal first , first trimester OB Routine Procedures OFFICE/OUTPATIENT ESTABLISHED MOD MDM 30 MIN EST [facility] OB Zina Jensen APRN.CNM [address] [place] [place] [address] Phone: tel: fax: Zina Jensen APRN.CNM [address] [place] [address] Phone: tel: fax: Referral ID Status Reason Start Date Expiration Date Visits Re quested Visits Authorized [id number] Closed 07/25/2024 08/12/2025 1 1 Specialty Diagnoses / Procedures Referred By Contac t Referred To Contact [facility] Diagnoses with uncertain dates, antepartum Procedures OBSTETRIC ULTRASOUND WH US PREG UTERUS AFTER 1ST TRIMEST GESTATION Zina Jensen APRN.CNM [address] [place] [address] Phone: tel: fax: [facility] [address] [place] [address] Referral ID Status Reason Start Date Expiration Date V isits Requested Visits Authorized [id number] Closed Auto-Generate d Referral 11/02/2024 12/03/2024 1 1 Reason Onset Date Comments Care 01/01/2025 Specialty Diagnoses / Procedures Referred By Contac t Referred To Contact Chapter Relations Administrator / SENIOR FRONT END DEVELOPER Diagnoses Encounter for supervision of normal first , first trimester OB Routine Procedures OFFICE/OUTPATIENT ESTABLISHED MOD MDM 30 MIN EST [facility] OB Zina Jensen APRN.CNM [address] [place] [address] Phone: tel: fax:[phone] Zina Jensen APRN.CNM [address] [place] [address] Phone: tel: fax:[phone] Referral ID Status Reason Start Date Expiration Date V isits Requested Visits Authorized [id number] Authorized 07/25/2024 07/25/2025 99 99 Reason Comments Medical record release from [facility] Reason Comments Care Coordination echo f/u Reason Onset Date Comments Care 01/17/2025 Specialty Diagnoses / Procedures Referred By Contac t Referred To Contact Chapter Relations Administrator / SENIOR FRONT END DEVELOPER Diagnoses Encounter for supervision of normal first , second trimester Growth/OB Procedures OFFICE/OUTPATIENT ESTABLISHED MOD [facility] 30 MIN EST [facility] OB Zina Jensen APRN.CNM [address] [place] [place] [address] Phone: tel: fax: Zina Jensen APRN.CNM [address] [place] [place] [address] Phone: tel: fax:[phone] Referral ID Status Reason Start Date Expiration Date Visits Re quested Visits Authorized [id number] Closed 07/25/2024 08/12/2025 1 1 Specialty Diagnoses / Procedures Referred By Contac t Referred To Contact [facility] Diagnoses Encounter for supervision of normal first in second trimester (HCC) Procedures OBSTETRIC ULTRASOUND [facility] US PREG UTERUS AFTER 1ST TRIMEST GESTATION Zina Jensen APRN.CNM [address] [place] [address] Phone: tel: fax:[phone] [facility] [address] [place] [address] Referral ID Status Reason Start Date Expiration Date V isits Requested Visits Authorized [id number] Closed Auto-Generat ed Referral Patient Cleared - [...] Zina Jensen APRN.CN [address] [place] [address] Phone: tel: fax: [facility] [address] [place] [address] Referral ID Status Reason Start Date Expiration Date V isits Requested Visits Authorized [id number] Closed PCP Requested Referral 01/17/2025 09/03/2025 1 1 Reason Comments Opened In Error Reason Onset Date Comments Care 03/05/2025 Specialty Diagnoses / Procedures Referred By Fish garcia Referred To Contact Chapter Relations Administrator / SENIOR FRONT END DEVELOPER Diagnoses Encounter for supervision of normal first , first trimester (HCC) OB Routine Procedures OFFICE/OUTPATIENT ESTABLISHED MOD MDM 30 MIN EST [facility] OB Zina Jensen APRN.CN [address] [place] [address] Phone: tel: fax: Zina Jensen APRN.CN [address] [place] [address] Phone: tel: fax: Reason Comments New Patient Specialty Diagnoses / Procedures Referred By Fish garcia Referred To Contact Neurology / NEUROSURGERY Diagnoses 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 Procedures OFFICE/OUTPATIENT NEW MODERATE MDM 45 MINUTES OFFICE/OUTPATIENT ESTABLISHED MOD MDM 30 MIN [facility] [address] [address] Phone: tel: Livia Denny MD [address] [place] [address] Phone: tel: fax: Referral ID Status Reason Start Date Expiration Date V isits Requested Visits Authorized [id number] Authorized 03/03/2025 08/30/2025 99 99 Reason Onset Date Comments Population Health Navigation Outreach 03/10/2025 Ob/peds Reason Onset Date Comments Care 03/10/2025 Specialty Diagnoses / Procedures Referred By Fish garcia Referred To Contact Chapter Relations Administrator / SENIOR FRONT END DEVELOPER Diagnoses Encounter for supervision of normal first , first trimester (HCC) OB Routine Procedures OFFICE/OUTPATIENT ESTABLISHED MOD MDM 30 MIN EST [facility] OB Zina Jensen APRN.CN [address] [place] [address] Phone: tel: fax:[phone] Zina Jensen APRN.CN [address] [place] [address] Phone: tel: fax: Reason Onset Date Comments Care 03/20/2025 Specialty Diagnoses / Procedures Referred By Fish garcia Referred To Contact SENIOR FRONT END DEVELOPER Diagnoses na Procedures na OB/Gynecology [address] [place] [address] Phone: tel: Referral ID Status Reason Start Date Expiration Date Visits Re quested Visits Authorized [id number] 1 1 Reason Comments Appointment Imaging/Records Care Teams (unrecognized sec tion and content) Concert Or Lecture Hall Manager Relationship Specialty Start Date End Date Tushar Centeno [address] [place] [address] PCP - General Family Medicine 04/12/23 Concert Or Lecture Hall Manager Relationship Specialty Start Date End Date Tushar Centeno [address] [place] [address] PCP - General Family Medicine 04/12/23 Concert Or Lecture Hall Manager Relationship Specialty Start Date End Date Tushar Centeno [address] [place] [address] PCP - General Family Medicine 04/12/23 Concert Or Lecture Hall Manager Relationship Specialty Start Date End Date Tushar Centeno [address] [place] [address] PCP - General Family Medicine 04/12/23 Concert Or Lecture Hall Manager Relationship Specialty Start Date End Date Tushar Centeno [address] [place] [address] PCP - General Family Medicine 04/12/23 Concert Or Lecture Hall Manager Relationship Specialty Start Date End Date Tushar Centeno [address] [place] [address] PCP - General Family Medicine 04/12/23 Concert Or Lecture Hall Manager Relationship Specialty Start Date End Date Tushar Centeno [address] [place] [address] PCP - General Family Medicine 04/12/23 Concert Or Lecture Hall Manager Relationship Specialty Start Date End Date Tushar Centeno [address] [place] [address] PCP - General Family Medicine 04/12/23 Concert Or Lecture Hall Manager Relationship Specialty Start Date End Date Tushar Centeno [address] [place] [address] PCP - General Family Medicine 04/12/23 Concert Or Lecture Hall Manager Relationship Specialty Start Date End Date Tushar Centeno [address] [place] [address] PCP - General Family Medicine 04/12/23 Concert Or Lecture Hall Manager Relationship Specialty Start Date End Date Tushar Centeno [address] [facility], [place] [id number] PCP - General Family Medicine 04/12/23 Concert Or Lecture Hall Manager Relationship Specialty Start Date End Date Tushar Centeno MD [address] [place] [address] PCP - General Family Medicine 04/12/23 Concert Or Lecture Hall Manager Relationship Specialty Start Date End Date Tushar Centeno MD [address] [place] [address] PCP - General Family Medicine 04/12/23 Concert Or Lecture Hall Manager Relationship Specialty Start Date End Date Tushar Centeno MD [address] [place] [address] PCP - General Family Medicine 04/12/23 Concert Or Lecture Hall Manager Relationship Specialty Start Date End Date Tushar Centeno MD [address] [place] [address] PCP - General Family Medicine 04/12/23 Concert Or Lecture Hall Manager Relationship Specialty Start Date End Date Tushar Centeno MD [address] [place] [address] PCP - General Family Medicine 04/12/23 Concert Or Lecture Hall Manager Relationship Specialty Start Date End Date Tushar Centeno MD [address] [place] [address] PCP - General Family Medicine 04/12/23 Concert Or Lecture Hall Manager Relationship Specialty Start Date End Date Tushar Centeno MD [address] [place] [address] PCP - General Family Medicine 04/12/23 Concert Or Lecture Hall Manager Relationship Specialty Start Date End Date Tushar Centeno MD [address] [email or web address] [address] PCP - General Family Medicine 04/12/23 Mitesh Fregoso [address] [place] [address] Referring Chapter Relations Administrator 02/01/24 Concert Or Lecture Hall Manager Relationship Specialty Start Date End Date Tushar Centeno MD [address] [employer] [place] [address] PCP - General Family Medicine 04/12/23 Mitesh Fregoso [address] [place] [address] Referring Chapter Relations Administrator 02/01/24 Concert Or Lecture Hall Manager Relationship Specialty Start Date End Date Tushar Centeno MD [address] [email or web address] [place] [address] PCP - General Family Medicine 04/12/23 Mitesh Fregoso [address] [place] [address] Referring Chapter Relations Administrator 02/01/24 Concert Or Lecture Hall Manager Relationship Specialty Start Date End Date Tushar Centeno MD [address] [facility] [place] [address] PCP - General Family Medicine 04/12/23 Mitesh Fregoso [address] [place] [address] Referring Chapter Relations Administrator 02/01/24 Concert Or Lecture Hall Manager Relationship Specialty Start Date End Date Tushar Centeno MD [address] [email or web address] [address] PCP - General Family Medicine 04/12/23 Mitesh Fregoso [address] [place] [address] Referring Chapter Relations Administrator 02/01/24 Concert Or Lecture Hall Manager Relationship Specialty Start Date End Date Tushar Centeno MD [address] [employer] [place] [address] PCP - General Family Medicine 04/12/23 Mitesh Fregoso [address] [place] [address] Referring Chapter Relations Administrator 02/01/24 Concert Or Lecture Hall Manager Relationship Specialty Start Date End Date Tushar Centeno MD [address] [facility] [employer] [place] [address] PCP - General Family Medicine 04/12/23 Mitesh Fregoso [address] [place] [address] Referring Chapter Relations Administrator 02/01/24 Concert Or Lecture Hall Manager Relationship Specialty Start Date End Date Tushar Centeno MD [address] [facility] [employer] [place] [address] PCP - General Family Medicine 04/12/23 Mitesh Fregoso [address] [place] [address] Referring Chapter Relations Administrator 02/01/24 Concert Or Lecture Hall Manager Relationship Specialty Start Date End Date Tushar Centeno MD [address] [email or web address] [address] PCP - General Family Medicine 04/12/23 Mitesh Fregoso [address] [place] [address] Referring Chapter Relations Administrator 02/01/24 Concert Or Lecture Hall Manager Relationship Specialty Start Date End Date Tushar Centeno MD [address] [employer] [place] [address] PCP - General Family Medicine 04/12/23 Mitesh Fregoso [address] [place] [address] Referring Chapter Relations Administrator 02/01/24 Concert Or Lecture Hall Manager Relationship Specialty Start Date End Date Tushar Centeno MD [address] [facility] [employer] [place] [address] PCP - General Family Medicine 04/12/23 Mitesh Fregoso [address] [place] [address] Referring Chapter Relations Administrator 02/01/24 Concert Or Lecture Hall Manager Relationship Specialty Start Date End Date Tushar Centeno MD [address] [facility] [employer] [place] [address] PCP - General Family Medicine 04/12/23 Mitesh Fregoso [address] [place] [address] Referring Chapter Relations Administrator 02/01/24 Concert Or Lecture Hall Manager Relationship Specialty Start Date End Date Tushar Centeno MD [address] [email or web address] [address] PCP - General Family Medicine 04/12/23 Mitesh Fregoso [address] [place] [address] Referring Chapter Relations Administrator 02/01/24 Concert Or Lecture Hall Manager Relationship Specialty Start Date End Date Tushar Centeno MD [address] [employer] [place] [address] PCP - General Family Medicine 04/12/23 Mitesh Fregoso [address] [place] [address] Referring Chapter Relations Administrator 02/01/24 Concert Or Lecture Hall Manager Relationship Specialty Start Date End Date Tushar Centeno MD [address] [facility] [employer] [place] [address] PCP - General Family Medicine 04/12/23 Mitesh Fregoso [address] [place] [address] Referring Chapter Relations Administrator 02/01/24 Concert Or Lecture Hall Manager Relationship Specialty Start Date End Date Tushar Centeno MD [address] [facility] [employer] [place] [address] PCP - General Family Medicine 04/12/23 Mitesh Fregoso [address] [place] [address] Referring Chapter Relations Administrator 02/01/24 Concert Or Lecture Hall Manager Relationship Specialty Start Date End Date Tushar Centeno MD [address] [email or web address] [address] PCP - General Family Medicine 04/12/23 Mitesh Fregoso [address] [place] [address] Referring Chapter Relations Administrator 02/01/24 Concert Or Lecture Hall Manager Relationship Specialty Start Date End Date Tushar Centeno MD [address] [employer] [place] [address] PCP - General Family Medicine 04/12/23 Mitesh Fregoso [address] [place] [address] Referring Chapter Relations Administrator 02/01/24 Concert Or Lecture Hall Manager Relationship Specialty Start Date End Date Tushar Centeno MD [address] [facility] [employer] [place] [address] PCP - General Family Medicine 04/12/23 Mitesh Fregoso [address] [place] [address] Referring Chapter Relations Administrator 02/01/24 Concert Or Lecture Hall Manager Relationship Specialty Start Date End Date Tushar Centeno MD [address] [facility] [employer] [place] [address] PCP - General Family Medicine 04/12/23 Mitesh Fregoso [address] [place] [address] Referring Chapter Relations Administrator 02/01/24 Concert Or Lecture Hall Manager Relationship Specialty Start Date End Date Tushar Centeno MD [address] [email or web address] [address] PCP - General Family Medicine 04/12/23 Mitesh Fregoso [address] [place] [address] Referring Chapter Relations Administrator 02/01/24 Concert Or Lecture Hall Manager Relationship Specialty Start Date End Date Tushar Centeno MD [address] [employer] [place] [address] PCP - General Family Medicine 04/12/23 Mitesh Fregoso [address] [place] [address] Referring Chapter Relations Administrator 02/01/24 Concert Or Lecture Hall Manager Relationship Specialty Start Date End Date Tushar Centeno MD [address] [facility] [employer] [place] [address] PCP - General Family Medicine 04/12/23 Mitesh Fregoso [address] [place] [address] Referring Chapter Relations Administrator 02/01/24 Concert Or Lecture Hall Manager Relationship Specialty Start Date End Date Tushar Centeno MD [address] [facility] [employer] [place] [address] PCP - General Family Medicine 04/12/23 Mitesh Fregoso [address] [place] [address] Referring Chapter Relations Administrator 02/01/24 Concert Or Lecture Hall Manager Relationship Specialty Start Date End Date Cecile Ruth CNP [address] [place] [address] PCP - General Family Medicine 03/06/25 Mitesh Fregoso [address] [place] [address] Referring Chapter Relations Administrator 02/01/24 Concert Or Lecture Hall Manager Relationship Specialty Start Date End Date Cecile Ruth CNP [address] [place] [address] PCP - General Family Medicine 03/06/25 Mitesh Fregoso [address] [place] [address] Referring Chapter Relations Administrator 02/01/24 Concert Or Lecture Hall Manager Relationship Specialty Start Date End Date Cecile Ruth CNP [address] [place] [address] PCP - General Family Medicine 03/06/25 Mitesh Fregoso [address] [place] [address] Referring Chapter Relations Administrator 02/01/24 Concert Or Lecture Hall Manager Relationship Specialty Start Date End Date Cecile Ruth CNP [address] [place] [address] PCP - General Family Medicine 03/06/25 Mitesh Fregoso [address] [place] [address] Referring Chapter Relations Administrator 02/01/24 Concert Or Lecture Hall Manager Relationship Specialty Start Date End Date Cecile Ruth CNP [address] [place] [address] PCP - General Family Medicine 03/06/25 Mitesh Fregoso [address] [place] [address] Referring Chapter Relations Administrator 02/01/24 Concert Or Lecture Hall Manager Relationship Specialty Start Date End Date Tushar Centeno MD [address] [place] [address] PCP - General Family Medicine 04/12/23 03/05/25 Cecile Ruth, RUBBER GOODS SUPERVISOR [address] [place] [address] PCP - General Family Medicine 03/06/25 Mitesh Fregoso [address] [place] [address] Referring Chapter Relations Administrator 02/01/24 Concert Or Lecture Hall Manager Relationship Specialty Start Date End Date Tushar Centeno MD [address] [place] [address] PCP - General Family Medicine 04/12/23 03/05/25 Cecile Ruth, RUBBER GOODS SUPERVISOR [address] [place] [address] PCP - General Family Medicine 03/06/25 Mitesh Fregoso [address] [place] [address] Referring Chapter Relations Administrator 02/01/24 Concert Or Lecture Hall Manager Relationship Specialty Start Date End Date Tushar Centeno MD [address] [place] [address] PCP - General Family Medicine 04/12/23 03/05/25 Cecile Ruth, RUBBER GOODS SUPERVISOR [address] [facility] [place] [address] PCP - General Family Medicine 03/06/25 Mitesh Fregoso [address] [place] [address] Referring Chapter Relations Administrator 02/01/24 Concert Or Lecture Hall Manager Relationship Specialty Start Date End Date Tushar Centeno MD [address] [facility] [place] [address] PCP - General Family Medicine 04/12/23 03/05/25 Cecile Ruth CNP [address] [facility] [place] [address] PCP - General Family Medicine 03/06/25 Mitesh Fregoso [address] [place] [address] Referring Chapter Relations Administrator 02/01/24 INFORMATION SOURCE (unrecogn ized section and content) DATE CREATED AUTHOR 07/09/2023 [facility] DATE CREATED AUTHOR AUTHOR'S ORGANIZ ATION 03/07/2025 [facility] DATE CREATED AUTHOR AUTHOR'S ORGANIZ ATION 03/24/2025 [facility] DATE CREATED AUTHOR AUTHOR'S ORGANIZ ATION 03/26/2025 [facility] FOR RECORDS PERTAINING TO PATIENTS WHO [...] BE BASED ON THE PRIMARY CLINICAL RECORDS. [employer] [facility]. provides no warranty or guarantee of the accuracy or completeness of information in this document.
[2025-03-26 21:18] VITALS: BP 138/86; PULSE 102; RESP 16; TEMP 36.7; O2SAT 98
[2025-03-26 21:19] VITALS: PULSE 96; O2SAT 100
[2025-03-27] VITALS (29 sets, daily range): BP systolic 105–141; BP diastolic 58–84; PULSE 70–130; RESP 16–18; TEMP 36.2–37.3; O2SAT 94–100
--- OUTSIDE RECORDS SUMMARY | 2025-03-27 00:58 | XMS RPT_ITS | CCD ---
Author Organization [facility] Care Team Providers Care Instrumentation Supervisor Name Role Phone Unavailable Primary Care Provider Jeremiah Aguirre Primary Care Provider Unavailable Primary Care Provider Shelby Centeno MD, Jeremiah Stapleton Primary Care Provide r CHELSY PERRY Attending Unavailable ERIK CHENG Referring Unavailable EILEEN HOUSE Attending Unavailable ERIK CHENG Referring Unavailable CHELSY PERRY Attending Unavailable ERIK CHENG Referring Unavailable Elif MELO, Jeremiah Stapleton Primary Care Provide r Jeremiah Centeno MD Primary Care Provide r Mitesh Fregoso Unavailable Peter Teresa Attending Unavailable Jeremiah Centeno Primary Care Unavailable Jeremiah Centeno Primary Care Unavailable Wendie Ly Referring Unavailable Wendie Ly Attending Unavailable Peter Teresa Referring Unavailable Peter Teresa Attending Unavailable Peter Teresa Admitting Unavailable Jeremiah Centeno Primary Care Unavailable Cecile Ruth CNP Primary Care Provider [phone] Jeremiah Centeno MD Primary Care Provide r JEREMIAH CENTENO Primary Care Unavail able ZINA JENSEN Attending Unavailable JEREMIAH CENTENO Primary Care Unavail able ZINA JENSEN Referring Unavailable JEREMIAH CENTENO Primary Care Unavail able HANNA RANDALL Attending Unavail able JEREMIAH CENTENO Primary Care Unavail able ZINA JENSEN Referring Unavailable JEREMIAH CENTENO Primary Care Unavail able JENSEN, ZINA Referring Unavailable VALERIO LEON Attending Unavailable CECILE RUTH Primary Care Unavailable JENSEN, ZINA Referring Unavailable JENSEN, ZINA Attending Unavailable CECILE RUTH Primary Care Unavailable SELF Referring Unavailable BEBETO VALENCIA Attending Unavailable GODLECARLOS EDUARDO, [facility] Primary Care Unavail able JENSEN, ZINA Referring Unavailable GODLEWSVLADIMIR, [facility] Primary Care Unavail able JENSEN, ZINA Referring Unavailable GODLEWSKI, [facility] Primary Care Unavail able JENSEN, ZINA Referring Unavailable JENSEN, ZINA Attending Unavailable GODLECARLOS EDUARDO, [facility] Primary Care Unavail able VICKY ENGEL Attending Unavailable GODLEWSVLADIMIR, [facility] Primary Care Unavail able JENSEN, ZINA Referring Unavailable JENSEN, ZINA Attending Unavailable GODROSSANA, [facility] Primary Care Unavail able VICKY ENGEL Referring Unavailable GODLEWSVLADIMIR, [facility] Primary Care Unavail able MITESH FREGOSO Referring Unavailable BRAD RODRIGUEZ Attending Unavailable GODLEWSVLADIMIR, [facility] Primary Care Unavail able JENSEN, ZINA Attending Unavailable GODLECARLOS EDUARDO, [facility] Primary Care Unavail able JENSEN, ZINA Referring Unavailable GODLEWSVLADIMIR, JEREMIAH ANDREI Primary Care Unavail able JENSEN, ZINA Attending Unavailable GODLEWSVLADIMIR, JEREMIAH ANDREI Primary Care Unavail able JENSEN, ZINA Referring Unavailable GODLECARLOS EDUARDO, JEREMIAH ANDREI Primary Care Unavail able ASHLI LARAY Referring Unavailable MISBAH CHEN Attending Unavailable GODLECARLOS EDUARDO, [facility] Primary Care Unavail able VICKY ENGEL Attending Unavailable GODLEWSVLADIMIR, [facility] Primary Care Unavail able NADORLIK, JOSSY Referring Unavailable GODLEWSVLADIMIR, [facility] Primary Care Unavail able JENSEN, ZINA Referring Unavailable PETER TERESA Attending Unavailable GODLEWSVLADIMIR, JEREMIAH ANDREI Primary Care Unavail able JENSEN, ZINA Attending Unavailable GODLEWSVLADIMIR, [facility] Primary Care Unavail able GODLEWSVLADIMIR, [facility] Primary Care Unavail able JENSEN, ZINA Attending Unavailable GODLEWSVLADIMIR, [facility] Primary Care Unavail able JENSEN, ZINA Referring Unavailable GODLEWSKI, JEREMIAHFOREIGN CEJAE Primary Care Unavail able ZINA JENSEN Referring Unavailable ZINA JENSEN Attending Unavailable PROVIDER, UNKNOWN Attending Unavailable CECILE RUTH Primary Care Unavailable JOSSY LARA Attending Unavailable JEREMIAH CENTENO Primary Care Unavail able JEREMIAH CENTENO Primary Care Unavail able Allergies Allergy Classification Reported Allergen(s) Allergy Type Date of Onset Reaction(s) Facility (20 sources) Amoxicillin; Translations: [AMOXICILLIN] Drug Allergy 3 Rash [facility] (20 sources) Latex; Translations: [LATEX] Propensity to adverse reactions to drug 3 Swelling [facility] (1 source) Latex Propensity to adverse reactions to drug 3 Swelling [facility] (20 sources) Clindamycin; Translations: [CLINDAMYCIN] Drug Allergy 9 Diarrhea [facility] (1 source) Amoxicillin Drug Allergy [address] [facility] (1 source) Latex Drug allergy (disorder) 5 [facility] Repository Medications Current Medications Medication Drug Class(es) Dates Sig (Normalized) Sig (Original) cholecalciferol 0.025 mg oral tablet (13 sources) Vitamin D Start: 06-03-2022 take 1 [...] PO) Take by mouth. 0 Active Docosahexaenoate (13 sources) docosahexaenoic acid ( DHA ORAL) Take by mouth. With omega 3 Active ferrous sulfate (13 sources) ferrous sulfate (IRON ORAL) Take by [...] mouth. 0 Active omega-3 acid ethyl esters (intermediate) 1000 mg oral capsule (2 sources) take [...] Polo e by mouth. Active chorionic gonadotropin 90170 unt/ml injectable solution (17 sources) Gonadotropin Start: 02-23-2023 End: 04-14-2023 chorionic gonadotropin (PREGNYL) 10,000 unit solr 10,000 Units once daily. 10,000 Units as directed. Inject 10,000 units for HCG trigger 1 Each 1 02/23/2023 04/14/2023 Discontinued Comment on above: 10,000 Units once da foreign. 10,000 Units as directed. Inject 10,000 units for HCG trigger CRANBERRY BTDITER-U-LYXENOE ORAL (8 sources) Start: 06-03-2022 End: 03-09-2025 CRANBERRY [id number] ORAL Take by mouth. 06/03/2022 03/09/2025 Discontinued (Course of therapy completed) Start: 06-03-2022 CRANBERRY EXTR [id number] ORAL Take by mouth. 06/03/2022 Active doxycycline [...] on above: Take 3 tablets by mo [facility] once daily. 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) Bacteria present; Translations: [Streptococcus, group B, [...] Date Documented Da te Episodic/Chronic Allergic reactions (12 sources) Allergy to penicillin; Translations: [Allergy status [...] B/Oon Glucose Ql (U) Negative Neg mg/dL [facility] Interpretation and review of laboratory results Normal [facility] Protein.monoclonal (U) [Mass/Vol] Negative Neg mg/dL [facility] UA DIP, URINE (POC)on 2024 BILIRUBIN UA (POCT) Negative Negative [facility] CLARITY UA (POCT) Clear [facility] COLOR UA (POCT) Yellow [facility] GLUCOSE UA (POCT) Negative Negative mg/dL [facility] Hemoglobin Ql (U) Negative Negative [facility] KETONE UA (POCT) Negative Negative mg/dL [facility] LEUKOCYTES UA (POCT) Negative Negative [facility] NITRITE UA (POCT) Negative Negative [facility] PH UA (POCT) 7 4.5 - 8.0 [facility] Protein Ql (U) Negative Negative mg/dL [facility] SPECIFIC GRAVITY UA (POCT) 1.01 1.005 - 1.030 [facility] UROBILINOGEN UA (POCT) 0.2 Normal E.U./dL [facility] Location:[facility], [address], [place], [address] [facility] POINT OF CARE [facility] CNOVon 03-06-2025 CNOV Office Visit (NEVCM) DONA GUTIERREZ ([id number]) 1990 F Date Time Provider Department 03/06/25 2:00 PM LIVIA DENNY [facility] During your visit today, we recorded the following information about you: Pulse Blood pressure Weight 87/minute 115/72 71.2 kg Livia Denny MD 03/09/2025 11:39 PM [facility] Initial Visit oDna Gutierrez CC#: [id number] Date of Service: 03/06/2025 Primary Care Provider: Jeremiah Centeno MD, MD The patient was referred by [facility] [place] for opinion regarding a left pontine capillary [...] for Supervision of Normal in First Trimester ([facility]) History of Infertility Rh Negative State in Antepartum Period, First Trimester ([facility]) Cavernoma or capillary telangiectasia Ptsd (Post-Traumatic Stress [...] ORAL) Take by mouth once daily. CRANBERRY SWFYAUE-Y-BRMTJAO ORAL Take by mouth. (Patient not taking: [...] and symmetri (more content not included)... Normal [facility] MR/PAT.ANEon 03-06-2025 MR/PAT.[facility] Medical Records Department [address] [place] [address] PAT - Anesthesia 03/06/25 0016 MR#: [id number] Acct: [id number] Name: DONA GUTIERREZ Rep #: [id number] : 1990 34 From: Alli Mendez MD PCP: Dr. 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: Anesthesia History - baseball sewer hand Hx Hospitalization No 03/03/25 10:38 Any Problems [...] take am of surgery PONV PONV - baseball sewer hand: PONV - baseball sewer hand Female Yes 03/03/25 10:38 HX of Motion [...] 05/09/24 16:37 Respiratory Assessment Respiratory Assessment - baseball sewer hand: Respiratory Tract Infection Hx - baseball sewer hand Hx Respiratory Tract Infection No 03/03/25 10:38 STOP Sleep Apnea STOP Sleep Apnea - baseball sewer hand: STOP Sleep Apnea - baseball sewer hand Hx Hypertension No 03/03/25 10:38 Hx Sleep [...] Tobacco Use History Tobacco Use History - baseball sewer hand: Tobacco Use History - baseball sewer hand Tobacco Use Smoking Status Never smoker 03/03/25 10:38 Hx Tobacco Use No 03/03/25 10:38 Years Smoking Packs Smoked per Day Smoking Cessation Date was within the last 15 years Hx Smoking Cessation Date Hx Smoking Cessation Counseling Hematologic Medial History Hematologic Hx - baseball sewer hand: 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 Hx of Blood Transfusion No 03/03/25 10:38 [...] confused, unrespo /Reproduction History /Reproductive History - baseball sewer hand: /Reproductive Hx- baseball sewer hand Hx Now No 03/03/25 10:38 Gestational Age (in weeks): EDC: Hx Hx Para Hx Section SAB No 03/03/25 10:38 [facility] Medical History (Updated 03/03/25 @ [...] story rhamnosus 12 billion cell chew tablet ([facility]) cholecalciferol (vitamin D3) 50 4,000 unit PO DAILY 03/03/25 Unkno wn History mcg (2,000 unit) capsule (Vitamin D3) choline 500 mg tablet 500 mg PO DAILY 03/03/25 Unknown H istory fish oil-dha-epa 1,200 mg-144 1 cap PO DAILY 03/03/25 Unknown Hi story mg-216 mg capsule multivitamin-folic acid 400 1 tab PO DAILY 03/03/25 Unknown Hi story mcg-biotin 2,000 mcg tablet (Zrny-Hmoe-Hentw (tbjjdklj-pzomp-rrxule )) Allergy/AdvR (more content not included)... Normal [facility] URINE OB DIP B/Oon Glucose Ql (U) Negative Neg mg/dL [facility] Interpretation and review of laboratory results Normal [facility] Protein.monoclonal (U) [Mass/Vol] Negative Neg mg/dL [facility] CNPNon 03-03-2025 CNPN Telephone ([facility]) DONA GUTIERREZ ([id number]) 1990 F Date Time Provider Department 03/03/25 LIVIA DENNY[facility] During your visit today, we recorded the following information about you: Malathi Hutchinson 03/03/2025 11:58 AM Signed I received an urgent referral for this patient from Yaquelin Altman ([place]) 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 Also she is 37 weeks . Am I allowed to schedule her with Dr. Denny this ? Janelle Curry, RN 03/03/2025 12:24 PM Signed Pt has urgent referral form [place] for Dr Denny. Nisha Awan Has added pt to Dr Denny schedule, but need imaging. None located in [facility]. Anderson Meyer 03/06/2025 10:55 AM Addendum Spoke with patient AND she confirmed [address] [facility] is most recent. Requested images from [employer]. Patient states she may have imaging on a CD. If she finds, she will also bring to appointment. OSH imaging/records received from [facility]: March 03, 2025 -Last 5 Years Records available in Care Everywhere -Last 5 Years Imaging Varun Younger 03/04/2025 8:39 AM Signed Received outside medical records from [place] and scanned into patient chart. Allergies As [...] Status:Closed by RENA ISAAC on 03/24/25 Normal [facility] Gp B Strep Vag Ql Culton S. agalactiae Org specific cx Ql (Vag fld) Positive for Group B Streptococcus by PCR. Unable to recover viable organism for susceptibility testing. Abnormal [facility] Comment on above: Performed By: #### G BPCR, 584-3 ####[facility] [id number] [place] [id number] [place] ROUTINE, GROUP B ST REPTOCOCCUS BY PCRon 02-24-2025 ROUTINE, GROUP B STREPTOCOCCUS BY PCR Detected Abnormal [facility] Comment on above: Performed By: #### G BPCR, 584-3 ####[facility] [id number] [place] [id number] [place] URINE OB DIP B/Oon 5 Glucose Ql (U) Negative Neg mg/dL [facility] Interpretation and review of laboratory results Normal [facility] Protein.monoclonal (U) [Mass/Vol] Negative Neg mg/dL [facility] T. gondii IgG Qn (S)on 02-20 Interpretation and review of laboratory results Normal [facility] Toxo IgG Qual Negative Negative [facility] Comment on above: No serological evide nce of past exposure to Toxoplasma gondii. Cannot exclude recent infection if the specimen collected within 3-4 weeks after infection. [facility] T. gondii IgG Qn (S)on 02-19 TOXO IGG QUAL Negative Normal Negative [facility] Comment on above: Order Comment: Sherine peter Type: BLOOD SPECIMENOrdering Facility: [facility] Address: [address] [place] [address] Result Comment: No s erological evidence of past exposure to Toxoplasma gondii. Cannot exclude recent infection if the specimen collected within 3-4 weeks after infection. Performed By: #### 8 039-0, 8040-8 ####[facility] [id number] [address] [place] T. gondii IgM Qn (S)on 02-19 TOXO IGM QUAL Negative Normal Negative [facility] Comment on above: Order Comment: Sherine peter Type: BLOOD SPECIMENOrdering Facility: [facility] Address: [address] [place] [address] Result Comment: No s erological evidence of recent exposure to Toxoplasma gondii. 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 - cholecalciferol (VITAMIN [...] Status:Closed by FORREST WALKER on 02/24/25 Normal [facility] FETALon 02-12-2025 + -- ------+-+ Pediatric Cardiology Echocardiogram Report + ------+-+ NAME: MRS. DONA GUTIERREZ : 1990 PT ID#: [id number] Age: 34 years Sex: F STUDY DATE: 02/12/2025 10:24:59 AM SHANTI: 03/23/2025 GA: 34w3d Image Quality: The images were of adequate diagnostic quality. 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 [facility] (OBGYWM) DONA GUTIERREZ ([id number]) 1990 F Date Time Provider Department 02/06/25 ZINA JENSEN During your visit today, we recorded the following information about you: Kristen Patterson RN 02/06/2025 4:51 PM Signed Patient referred for neurology consult by Zina Jensen. [facility] calling to notify office that they will be faxing over forms that need to be completed prior to scheduling patient. Form received and given to Zina Jensen to sign. Will need faxed back once signed. BRIANNA Ramos Trisha, RN 02/07/2025 11:39 AM Signed Patient also sent [employer] message regarding this. Lacey Mazariegos RN Allergies [...] Encounter Status:Closed by KRISTEN PATTERSON on 02/06/25 [facility] [place] [facility] ([id number]) 1990 F Date Time Provider Department 02/05/25 JENSEN, ZINA OBGYWM During your visit today, we recorded the following information about you: Valente Cotton MA 02/05/2025 4:31 PM Signed Spouse's [facility] paperwork completed and faxed back to employer. Patient notified. Valente Cotton MA Allergies As of Date: 02/05/2025 Noted Allergy Reaction AMOXICILLIN 12/07/2022 2 - Rash CLINDAMYCIN 03/06/2019 6 - Diarrhea LATEX 12/07/2022 7 - Swelling Date Reviewed: 01/31/2025 Reviewed by: Mariaelena Rubio MA - Fully Assessed Reason for Visit: [place] Paperwork [[id number]] Prescriptions as of 02/05/2025 - CHOLINE CHLORIDE, [...] Status:Closed by VALENTE COTTON on 02/05/25 Normal [facility] T. gondii IgM Qn (S)on 01-23 Interpretation and review of laboratory results Normal [facility] Toxo IgM Qual Negative Negative [facility] Comment on above: No serological evide nce of recent exposure to Toxoplasma gondii. [facility] 25(OH)D3 SerPl-mCncon 2024 25-hydroxyvitamin D3 [Mass/Vol] 55.7 ng/mL Normal 31.0-80.0 [facility] Comment on above: Order Comment: Sherine peter Type: BLOOD SPECIMEN [facility] Address: [address] [place] [address] Result Comment: Clas sification of 25 [place] Vitamin D status: Deficiency/Insufficiency: < or = 30 ng/ml. Sufficiency/Optimal Levels: 31-80 ng/mL Toxicity: > 100 ng/mL. Test performed by chemiluminescent immunoassay. Performed By: #### 7 3752-8 #### [facility] CLIA [id number] [address] [place] [address] [place] Examination level ultrasound on 01-17-2025 [facility] Radiology Study observation (narrative) [facility] T. gondii IgG Qn (S)on 01-17 TOXO IGG QUAL Negative Normal Negative [facility] Comment on above: Order Comment: Sherine peter Type: BLOOD SPECIMEN [facility] Address: [address] [place] [address] Result Comment: No s erological evidence of past exposure to Toxoplasma gondii. Cannot exclude recent infection if the specimen collected within 3-4 weeks after infection. Performed By: #### 7 3752-8 #### [facility] CLIA [id number] [address] [place] [address] [place] T. gondii IgM Qn (S)on 01-17 TOXO IGM QUAL Negative Normal Negative [facility] Comment on above: Order Comment: Sherine peter Type: BLOOD SPECIMEN [facility] Address: [address] [place] [address] Result Comment: No s erological evidence of recent exposure to Toxoplasma gondii. Performed By: #### 7 3752-8 #### [facility] CLIA [id number] [address] [place] [address] [place] TSH SerPl-aCncon 01-17-2025 TSH Qn 1.170 m[IU]/L Normal 0.270-4.200 [facility] Comment on above: Order Comment: Speci men Type: BLOOD SPECIMENOrdering Facility: [facility] Address: [address] [place] [address] Result Comment: If t he patient is , TSH reference range varies by gestational period: First Trimester (weeks 9-12): 0.180-2.990 mIU/L Second Trimester: 0.110-3.980 mIU/L Third Trimester: 0.480-4.710 mIU/L Tino Fish et al. A Practical Approach for the Verifications and Determination of Site- and Trimester-Specific Reference Intervals for Thyroid Function tests in . Thyroid, 2019:29:3:412-420. George Osullivan, et al. 2017 Guidelines of the [place] Thyroid Association for the Diagnosis and Management of Thyroid Disease during and the . Thyroid, 2017:27:3:315-389. Performed By: #### 3 016-3 ####[facility] [id number] [facility] [address] [facility] CNPCarlee 01-16-2025 CNPN Telephone (CHPDMN) DONA GUTIERREZ ([id number]) 1990 F Date Time Provider Department 01/16/25 JOSSY LARA CHPDMN During your visit today, we recorded the following information about you: Candida Moser 01/16/2025 3:48 PM Addendum Dona called the office to schedule echo follow up with Dr. Lara. Holding echo slot with Dr. Lara in [place] on 01/21 at 11am. Message sent to [...] Status:Closed by CANDIDA MOSER on 01/16/25 Normal [facility] CNCOon 01-03-2025 CNCO Letter Text Normal [facility] CNPNon 01-03-2025 CNPN Telephone (OBGYWM) DONA GUTIERREZ ([id number]) 1990 F Date Time Provider Department 01/03/25 JENSEN, ZINA OBGYWM During your visit today, we recorded the following information about you: Patricia Grider RN 01/03/2025 10:00 AM Signed In order to request pt's medical records from [facility], they need another form filled out in addition to the [facility] Medical Record Release form that the pt filled out. Letter (explaining this to the pt) typed up and the required form from [facility] and the [facility] Medical Record Release form mailed to pt per Shayy Gomez. Allergies As of Date: 01/03/2025 Noted Allergy Reaction AMOXICILLIN 12/07/2022 2 - Rash LATEX 12/07/2022 7 - Swelling Date Reviewed: 01/01/2025 Reviewed by: Valente Cotton MA - Fully Assessed Reason for Visit: Medical record release from [facility] [Other] Prescriptions as of 01/17/2025 - CHOLINE [...] Status:Closed by PATRICIA GRIDER on 01/03/25 Normal [facility] CBC W Auto Differential pane l (Bld)on 01-01-2025 Basophils (Bld) [#/Vol] 0.04 10*3/uL Normal <0.11 [facility] Comment on above: Order Comment: Speci men Type: BLOOD SPECIMENOrdering Facility: [facility] Address: [address] [place] [address] Performed By: #### 5 7021-8 ####[facility] MILLWNVLIA [id number] [place] [address] [place] Basophils/100 WBC (Bld) 0.5 % Normal [facility] Comment on above: Order Comment: Speci men Type: BLOOD SPECIMENOrdering Facility: [facility] Address: [address] [place] [address] Performed By: #### 5 7021-8 ####[facility] [id number] [place] [address] [place] Differential cell count method Nom (Bld) Auto Normal [facility] Comment on above: Order Comment: Speci men Type: BLOOD SPECIMENOrdering Facility: [facility] Address: [address] [place] [address] Performed By: #### 5 7021-8 ####[facility] [id number] [place] [address] [place] Eosinophils (Bld) [#/Vol] 0.19 10*3/uL Normal <0.46 [facility] Comment on above: Order Comment: Speci men Type: BLOOD SPECIMENOrdering Facility: [facility] Address: [address] [place] [address] Performed By: #### 5 7021-8 ####[facility] [id number] [place] [address] [place] Eosinophils/100 WBC (Bld) 2.2 % Normal [facility] Comment on above: Order Comment: Speci men Type: BLOOD SPECIMENOrdering Facility: [facility] Address: [address] [place] [address] Performed By: #### 5 7021-8 ####[facility] ALEXUSDURKEENCAIDEA [id number] [place] [address] [place] Erythrocyte distribution width (RBC) [Ratio] 12.4 % Normal 11.5-15.0 [facility] Comment on above: Order Comment: Speci men Type: BLOOD SPECIMENOrdering Facility: [facility] Address: [address] [place] [address] Performed By: #### 5 7021-8 ####[facility] [id number] [place] [address] [place] Hematocrit (Bld) [Volume fraction] 36.6 % Normal 36.0-46.0 [facility] Comment on above: Order Comment: Speci men Type: BLOOD SPECIMENOrdering Facility: [facility] Address: [address] [place] [address] Performed By: #### 5 7021-8 ####[facility] [id number] [place] [address] [place] Hemoglobin (Bld) [Mass/Vol] 12.0 g/dL Normal 11.5-15.5 [facility] Comment on above: Order Comment: Speci men Type: BLOOD SPECIMENOrdering Facility: [facility] Address: [address] [place] [address] Performed By: #### 5 7021-8 ####[facility] [id number] [place] [address] [place] Immature granulocytes (Bld) [#/Vol] 0.06 10*3/uL Normal <0.10 [facility] Comment on above: Order Comment: Speci men Type: BLOOD SPECIMENOrdering Facility: [facility] Address: [address] [place] [address] Performed By: #### 5 7021-8 ####[facility] MIRAMARDEVAUGHNLIA [id number] [place] [address] [place] Immature granulocytes/100 WBC (Bld) 0.7 % Normal [facility] Comment on above: Order Comment: Speci men Type: BLOOD SPECIMENOrdering Facility: [facility] Address: [address] [place] [address] Performed By: #### 5 7021-8 ####[facility] [id number] [place] [address] [place] Lymphocytes (Bld) [#/Vol] 1.39 10*3/uL Normal 1.00-4.00 [facility] Comment on above: Order Comment: Speci men Type: BLOOD SPECIMENOrdering Facility: [facility] Address: [address] [place] [address] Performed By: #### 5 7021-8 ####[facility] [id number] [place] [address] [place] Lymphocytes/100 WBC (Bld) 15.8 % Normal [facility] Comment on above: Order Comment: Speci men Type: BLOOD SPECIMENOrdering Facility: [facility] Address: [address] [place] [address] Performed By: #### 5 7021-8 ####[facility] [id number] [place] [address] [place] MCH (RBC) [Entitic mass] 29.1 pg Normal 26.0-34.0 [facility] Comment on above: Order Comment: Speci men Type: BLOOD SPECIMENOrdering Facility: [facility] Address: [address] [place] [address] Performed By: #### 5 7021-8 ####[facility] MIR[facility]ARNCL[facility] [id number] [place] [address] [place] MCHC (RBC) [Mass/Vol] 32.8 g/dL Normal 30.5-36.0 [facility] Comment on above: Order Comment: Speci men Type: BLOOD SPECIMENOrdering Facility: [facility] Address: [address] [place] [address] Performed By: #### 5 7021-8 ####[facility] [id number] [place] [address] [place] MCV (RBC) [Entitic vol] 88.6 fL Normal 80.0-100.0 [facility] Comment on above: Order Comment: Speci men Type: BLOOD SPECIMENOrdering Facility: [facility] Address: [address] [place] [address] Performed By: #### 5 7021-8 ####[facility] [id number] [place] [address] [place] Monocytes (Bld) [#/Vol] 0.36 10*3/uL Normal <0.87 [facility] Comment on above: Order Comment: Speci men Type: BLOOD SPECIMENOrdering Facility: [facility] Address: [address] [place] [address] Performed By: #### 5 7021-8 ####[facility] [id number] [place] [address] [place] Monocytes/100 WBC (Bld) 4.1 % Normal [facility] Comment on above: Order Comment: Speci men Type: BLOOD SPECIMENOrdering Facility: [facility] Address: [address] [place] [address] Performed By: #### 5 7021-8 ####[facility] [id number] [place] [address] [place] Neutrophils (Bld) [#/Vol] 6.76 10*3/uL Normal 1.45-7.50 [facility] Comment on above: Order Comment: Speci men Type: BLOOD SPECIMENOrdering Facility: [facility] Address: [facility] [place] [address] Performed By: #### 5 7021-8 ####[facility] ANGELWDEVAUGHNLIA [id number] [place] [address] [place] [facility] Neutrophils/100 WBC (Bld) 76.7 % Normal [facility] Comment on above: Order Comment: Speci men Type: BLOOD SPECIMENOrdering Facility: [facility] Address: [address] [place] [address] Performed By: #### 5 7021-8 ####[facility] M[facility]NL[facility] [id number] [place] [address] [place] Nucleated RBC (Bld) [#/Vol] 10*3/uL Normal <0.01 [facility] Comment on above: Order Comment: Speci men Type: BLOOD SPECIMENOrdering Facility: [facility] Address: [address] [place] [address] Performed By: #### 5 7021-8 ####[facility]CL[facility] [id number] [place] [address] [place] Nucleated RBC/100 WBC (Bld) [Ratio] 0.0 /100 WBC Normal [facility] Comment on above: Order Comment: Speci men Type: BLOOD SPECIMENOrdering Facility: [facility] Address: [address] [place] [address] Performed By: #### 5 7021-8 ####[facility] M[facility]ARNCL[facility] [id number] [place] [address] [place] Platelet mean volume (Bld) [Entitic vol] 11.0 fL Normal 9.0-12.7 [facility] Comment on above: Order Comment: Speci men Type: BLOOD SPECIMENOrdering Facility: [facility] Address: [address] [place] [address] Performed By: #### 5 7021-8 ####[facility] [id number] [place] [address] [place] Platelets (Bld) [#/Vol] 160 10*3/uL Normal 150-400 [facility] Comment on above: Order Comment: Speci men Type: BLOOD SPECIMENOrdering Facility: [facility] Address: [address] [place] [address] Performed By: #### 5 7021-8 ####[facility] [id number] [place] [address] [place] RBC (Bld) [#/Vol] 4.13 10*6/uL Normal 3.90-5.20 [facility] Comment on above: Order Comment: Speci men Type: BLOOD SPECIMENOrdering Facility: [facility] Address: [address] [place] [address] Performed By: #### 5 7021-8 ####[facility] [id number] [place] [address] [place] WBC (Bld) [#/Vol] 8.80 10*3/uL Normal 3.70-11.00 [facility] Comment on above: Order Comment: Speci men Type: BLOOD SPECIMENOrdering Facility: [facility] Address: [address] [place] [address] Performed By: #### 5 7021-8 ####[facility] [id number] [place] [address] [place] GESTATIONAL GLUCOSE SCREEN, 1-HOUR, 50 GRAM, NON-FASTINGon 01-01-2025 Glucose [Mass/Vol] 108 mg/dL Normal 74-134 [facility] Comment on above: Order Comment: Speci men Type: BLOOD SPECIMEN [facility] Address: [address] [place] [address] Result Comment: [facility] Congress of Obstetricians and Gynecologists (Emily/Merritt) guidelines state a gestational diabetes mellitus positive screen is made, in women not previously diagnosed with overt diabetes, when the 1 hr plasma glucose level is equal to or above 140 mg/dL. [facility] Sail Repairer and [facility] recommends a 135 mg/dL cutoff. Performed By: #### G LTGST #### [facility] CLIA [id number] [address] [place] [address] [place] Reagin and Treponema pallidu m IgG and IgM [Interp]on 01-01-2025 T. pallidum IgG+IgM IA Ql (S) Non-Reactive Normal Nonreactive [facility] Comment on above: Order Comment: Speci men Type: BLOOD SPECIMEN [facility] Address: [address] [place] [address] Performed By: #### 7 3752-8 #### [facility] CLIA [id number] [address] [place] [address] [place] Reagin+T pallidum IgG+IgM Se rPl-Impon 01-01-2025 Reagin and Treponema pallidum IgG and IgM [Interp] Cannot exclude recent Treponemal infection if specimen collected within 7-10 days after appearance of suspect lesions or 2-3 weeks after an exposure. Clinical correlation is required. Normal [facility] Comment on above: Order Comment: Speci men Type: BLOOD SPECIMEN [facility] Address: [address] [place] [address] Performed By: #### 7 3752-8 #### [facility] CLIA [id number] [address] [place] [address] [place] TYPE + SCREEN PRENATALon ABO O Normal [facility] Comment on above: Order Comment: Deepai rome Type: BLOOD SPECIMENOrdering Facility: [facility] Address: [address] [place] [address] Performed By: #### T SPN ####[facility] BLOOD BANKCLIA [id number] [place] [address] [place] Rh Nom (Bld) Negative Normal [facility] Comment on above: Order Comment: Speci men Type: BLOOD SPECIMENOrdering Facility: [facility] Address: [address] [place] [address] Performed By: #### T SPN ####[facility] BANKCLIA [id number] [place] [address] [facility] TYPE AND SCREEN EXPIRATION 01/04/2025 23:59 Normal [facility] Comment on above: Order Comment: Speci men Type: BLOOD SPECIMENOrdering Facility: [facility] Address: [address] [place] [address] Performed By: #### T SPN ####[facility] BLO[facility] BANKCLIA [id number] [address] FETALon 11-19-2024 + -- ------+-+ Pediatric Cardiology Echocardiogram Report + ------+-+ NAME: MRS. DONA GUTIERREZ : 1990 PT ID#: [id number] Age: 34 years Sex: F STUDY DATE: 11/19/2024 9:27:40 AM SHANTI: 02/21/2025 GA: 22w2d Image Quality: The images were of adequate diagnostic quality. Referring Physician: Zina Jensen Diagnosing Physician: Jossy Lara Roof Promenade Tile Setter: Marlee Perez RDMS, RDCS 2nd Roof Promenade Tile Setter: Diagnosis: O35.8JV7Pyacedijc abnormality and damage, single fetus or unspecified Procedure Code: 00342, 54317, 00282 Echo, Complete (w/Doppler and color) Exam Location: [facility] (). Indications: Evaluate cardiac anatomy and function. [...] rate and rhythm. HR 143 bpm Mechanical [place] 102 ms Segmental Anatomy, Cardiac Position and [...] on 11/19/2024 at 10:35:52 AM Final CC [facility] Image : [id number] [email or web address] See Link below for Image Normal [facility] Examination level ultrasound on 11-08-2024 Indication Standard [...] 14 oz EFW by: Hadlock (HC-AC-FL) Extended Beam Builder 6.0 mm CM 3.7 mm 10% Nicolaides [...] normal LVOT view: normal 3-vessel view: normal 2-hxuxlr-ygoffgf view: normal Heart / Thorax Situs: situs [...] Read By: Maritza Mckeon M.D. MATERNAL MEDICINE [facility] Radiology Study observation (narrative) [facility] OB Triage Physician Noteon 0 11-08-2024 OB Triage Physician Note [facility] Medical Records Department [address] [place] [address] OB Triage Physician Note 11/08/24 1607 MR#: [id number] Acct: [id number] Name: DONA GUTIERREZ Rep #: [id number] : 1990 34 From: Peter Teresa DO PCP: Dr. Jeremiah Centeno MD Status:DEP CLI Y Location: [facility] HPI - General General Date [...] Cosigner Signature (if applicable): Date CC: Dr. Jeremiah Centeno MD; Dr. Peter Teresa DO Signed Normal [facility] Urine Cultureon 11-05-2024 URC Culture exhibits no growth. Normal [facility] Comment on above: Performed By: #### L 400.2010, #### [facility] [address] [place], [address] Urinalysis, Routine (Dipstic k)on 11-04-2024 BILIRUBIN URINE Negative Normal Negative [facility] Comment on above: Order Comment: CLEAN CATCH Performed By: #### L 400.2010, #### [facility] [address] [place], [address] Clarity (U) Clear Normal Clear [facility] Comment on above: Order Comment: CLEAN CATCH Performed By: #### L 400.2010, #### [facility] [address] [place], [address] Color (U) Yellow Normal Yellow [facility] Comment on above: Order Comment: CLEAN CATCH Performed By: #### L 400.2010, #### [facility] [address] [place], [address] GLUCOSE, UR Normal Normal Normal [facility] Comment on above: Order Comment: CLEAN CATCH Performed By: #### L 400.2010, #### [facility] [address] [place], [address] KETONE UR Negative Normal Negative [facility] Comment on above: Order Comment: CLEAN CATCH Performed By: #### L 400.2010, #### [facility] [address] [place], [address] LEUK ESTERASE Negative Normal Negative [facility] Comment on above: Order Comment: CLEAN CATCH Performed By: #### L 400.2010, #### [facility] [address] [place], [address] Nitrite Ql (U) Negative Normal Negative [facility] Comment on above: Order Comment: CLEAN CATCH Performed By: #### L 400.2010, #### [facility] [address] [place], [address] OCCULT BLOOD-UR Negative Normal Negative [facility] Comment on above: Order Comment: CLEAN CATCH Performed By: #### L 400.2010, #### [facility] [address] [place], [address] pH UR 7.0 Normal 5.0 - 8.0 [facility] Comment on above: Order Comment: CLEAN CATCH Performed By: #### L 400.2010, #### [facility] [address] [place], [address] PROT DIPSTX Negative Normal Negative [facility] Comment on above: Order Comment: CLEAN CATCH Performed By: #### L 400.2010, #### [facility] [address] [place], [address] SP.GR. DIPSTX 1.010 Normal 1.002-1.030 [facility] Comment on above: Order Comment: CLEAN CATCH Performed By: #### L 400.2010, #### [facility] [address] [place], [address] UROBILI Normal Normal Normal [facility] Comment on above: Order Comment: CLEAN CATCH Performed By: #### L 400.2010, #### [facility] [address] [place], [address] nuchal translucency me asured by USon 09-16-2024 Indication First trimester anatomic survey Impression REMOTE READ The patient is referred for a first trimester anatomy scan including nuchal translucency measurement as clinically indicated. - Single, live, intrauterine . - Goddard rump length measurement is consistent with the [...] view: normal 4-chamber view with color: normal 1-nwjnuv-ymlpwsw view: normal Abdominal cord insertion: normal Stomach: normal Kidneys: normal Bladder: normal Color doppler of perivesical umbilical arteries: normal Vertebral alignment: normal Arms: normal Hands: normal Legs: normal Feet: normal Maternal Structures Uterus / Cervix Uterus: Visualized Uterus length 142 mm Uterus width 102 mm Uterus height 81 mm Uterus Vol 613.1 cm Other: [id number] subchorionic hematoma Ovaries / Tubes / Adnexa Rt ovary: Visualized Rt ovary D1 30 mm Rt ovary D2 23 mm Rt ovary D3 18 mm Rt ovary Vol 6.4 cm Lt ovary: Not visualized Performed By: Kristen Thomas RDMS, RVT Read By: Keyon Gonzalez M.D. MATERNAL MEDICINE [facility] nuchal translucency me asured by Elijah 09-13-2024 Radiology Study observation (narrative) [facility] Bacteria identified Cx Nom ( U)Ordered By: Lester Mckenzie on 09-04-2024 Interpretation and review of laboratory results Normal [facility] URINE CULTUREOrdered By: Dami Mckenzie on 09-04-2024 Bacteria identified Cx Nom (U) No growth (<1,000 CFU/ml) [facility] Bacteria Ur Culton Bacteria identified Cx Nom (U) CULTURE, URINE: No growth (<1,000 CFU/ml) Normal [facility] Comment on above: Performed By: #### 6 30-4 ####[facility] [id number] [place] [address] [place] UA DIP, URINE (POC)on 2023 BILIRUBIN UA (POCT) Negative Negative [facility] CLARITY UA (POCT) Clear [facility] COLOR UA (POCT) Yellow [facility] GLUCOSE UA (POCT) Negative Negative mg/dL [facility] Hemoglobin Ql (U) Negative Negative [facility] KETONE UA (POCT) Negative Negative mg/dL [facility] LEUKOCYTES UA (POCT) Negative Negative [facility] NITRITE UA (POCT) Negative Negative [facility] PH UA (POCT) 7.0 4.5 - 8.0 [facility] Protein Ql (U) Negative Negative mg/dL [facility] SPECIFIC GRAVITY UA (POCT) 1.015 1.005 - 1.030 [facility] UROBILINOGEN UA (POCT) 0.2 Normal E.U./dL [facility] Location:[facility], [address] , [place], [address] [facility] POINT OF CARE [facility] [place] 09-02-2024 FLOYDN Telephone (OBGYWM) DONA GUTIERREZ ([id number]) 1990 F Date Time Provider Department 09/02/24 [...] Status:Closed by VICKY ENGEL on 09/02/24 Normal [facility] BACTERIAL VAGINOSIS NAATon 1 10-13-2023 Lactobacillus crispatus+gasseri+suzanne senii + Gardnerella vaginalis + Atopobium vaginae rRNA KIRILL+probe Ql (Vag fld) Not detected Normal Not detected [facility] Comment on above: Order Comment: Speci men Type: SWABOrdering Facility: [facility] Address: [address] [place] [address] Performed By: #### B VAMP, CVTV ####[facility] [id number] [place] [address] [place] Bacteria Ur Culton [...] technique or straight catheterization for???urine???collecti on. Normal [facility] Comment on above: Performed By: #### 6 30-4 ####[facility] [id number] [place] [address] [place] C. trachomatis+N. gonorrhoea e DNA KIRILL+probe Ql (Unsp spec)on 08-12-2024 C. trachomatis rRNA KIRILL+probe Ql (Unsp spec) Not detected Normal Not detected [facility] Comment on above: Order Comment: Speci men Type: BLOOD SPECIMEN [facility] Address: [address] [place] [address] Performed By: #### 7 3752-8 #### [facility] CLIA [id number] [address] [place] [address] [place] N. gonorrhoeae rRNA KIRILL+probe Ql (Unsp spec) Not detected Normal Not detected [facility] Comment on above: Order Comment: Speci men Type: BLOOD SPECIMEN [facility] Address: [address] [place] [address] Performed By: #### 7 3752-8 #### [facility] CLIA [id number] [address] [place] [address] [place] STEVE/TRICHOMONAS NAATon 1 10-13-2023 C. glabrata RNA KIRILL+probe Ql (Vag fld) Not detected Normal Not detected [facility] Comment on above: Order Comment: Speci men Type: SWABOrdering Facility: [facility] Address: [address] [place] [address] Performed By: #### B VAMP, CVTV ####[facility] [id number] [place] [address] [place] Steve sp DNA KIRILL+probe Ql (Vag fld) Not detected Normal Not detected [facility] Comment on above: Order Comment: Speci men Type: SWABOrdering Facility: [facility] Address: [address] [place] [address] Result Comment: The Steve species group target includes C. albicans, C. tropicalis, C. parapsilosis, and C. dubliniensis. Performed By: #### B VAMP, CVTV ####[facility] [id number] [place] [address] [place] T. vaginalis DNA KIRILL+probe Ql (Unsp spec) Not detected Normal Not detected [facility] Comment on above: Order Comment: Speci men Type: SWABOrdering Facility: [facility] Address: [address] [place] [address] Performed By: #### B VAMP, CVTV ####[facility] [id number] [place] [address] [place] CBC W Auto Differential pane l (Bld)on 08-12-2024 Basophils (Bld) [#/Vol] 0.06 10*3/uL Normal <0.11 [facility] Comment on above: Order Comment: Speci men Type: BLOOD SPECIMENOrdering Facility: [facility] Address: [address] [place] [address] Performed By: #### 5 7021-8 ####[facility]ITALWNCLIA [id number] [place] [address] [place] Basophils/100 WBC (Bld) 0.5 % Normal [facility] Comment on above: Order Comment: Speci men Type: BLOOD SPECIMENOrdering Facility: [facility] Address: [address] [place] [address] Performed By: #### 5 7021-8 ####[facility]ITAL[facility]CLIA [id number] [place] [address] [place] Differential cell count method Nom (Bld) Auto Normal [facility] Comment on above: Order Comment: Speci men Type: BLOOD SPECIMENOrdering Facility: [facility] Address: [address] [place] [address] Performed By: #### 5 7021-8 ####[facility] MILLWNCLIA [id number] [place] [address] [place] Eosinophils (Bld) [#/Vol] 0.11 10*3/uL Normal <0.46 [facility] Comment on above: Order Comment: Speci men Type: BLOOD SPECIMENOrdering Facility: [facility] Address: [address] [place] [address] Performed By: #### 5 7021-8 ####[facility] MILLWNCLIA [id number] [place] [address] [place] Eosinophils/100 WBC (Bld) 0.9 % Normal [facility] Comment on above: Order Comment: Speci men Type: BLOOD SPECIMENOrdering Facility: [facility] Address: [address] [place] [address] Performed By: #### 5 7021-8 ####[facility] [id number] [place] [address] [place] Erythrocyte distribution width (RBC) [Ratio] 12.5 % Normal 11.5-15.0 [facility] Comment on above: Order Comment: Speci men Type: BLOOD SPECIMENOrdering Facility: [facility] Address: [address] [place] [address] Performed By: #### 5 7021-8 ####[facility] [id number] [place] [address] [place] Hematocrit (Bld) [Volume fraction] 41.9 % Normal 36.0-46.0 [facility] Comment on above: Order Comment: Speci men Type: BLOOD SPECIMENOrdering Facility: [facility] Address: [address] [place] [address] Performed By: #### 5 7021-8 ####[facility] [id number] [place] [address] [place] Hemoglobin (Bld) [Mass/Vol] 13.8 g/dL Normal 11.5-15.5 [facility] Comment on above: Order Comment: Speci men Type: BLOOD SPECIMENOrdering Facility: [facility] Address: [address] [place] [address] Performed By: #### 5 7021-8 ####[facility] [id number] [place] [address] [place] Immature granulocytes (Bld) [#/Vol] 0.04 10*3/uL Normal <0.10 [facility] Comment on above: Order Comment: Speci men Type: BLOOD SPECIMENOrdering Facility: [facility] Address: [address] [place] [address] Performed By: #### 5 7021-8 ####[facility] MIRAMARNCLI [id number] [place] [address] [place] Immature granulocytes/100 WBC (Bld) 0.3 % Normal [facility] Comment on above: Order Comment: Speci men Type: BLOOD SPECIMENOrdering Facility: [facility] Address: [address] [place] [address] Performed By: #### 5 7021-8 ####[facility] MIRAMARNCA [id number] [place] [address] [place] Lymphocytes (Bld) [#/Vol] 1.82 10*3/uL Normal 1.00-4.00 [facility] Comment on above: Order Comment: Speci men Type: BLOOD SPECIMENOrdering Facility: [facility] Address: [address] [place] [address] Performed By: #### 5 7021-8 ####[facility] [id number] [place] [address] [place] Lymphocytes/100 WBC (Bld) 15.5 % Normal [facility] Comment on above: Order Comment: Speci men Type: BLOOD SPECIMENOrdering Facility: [facility] Address: [address] [place] [address] Performed By: #### 5 7021-8 ####[facility] [facility] [id number] [place] [address] [place] MCH (RBC) [Entitic mass] 28.8 pg Normal 26.0-34.0 [facility] Comment on above: Order Comment: Speci men Type: BLOOD SPECIMENOrdering Facility: [facility] Address: [address] [place] [address] Performed By: #### 5 7021-8 ####[facility] [id number] [place] [address] [place] MCHC (RBC) [Mass/Vol] 32.9 g/dL Normal 30.5-36.0 [facility] Comment on above: Order Comment: Speci men Type: BLOOD SPECIMENOrdering Facility: [facility] Address: [address] [place] [address] Performed By: #### 5 7021-8 ####[facility] ALEXUSSouravNCYAKOV [id number] [place] [address] [place] MCV (RBC) [Entitic vol] 87.3 fL Normal 80.0-100.0 [facility] Comment on above: Order Comment: Speci men Type: BLOOD SPECIMENOrdering Facility: [facility] Address: [address] [place] [address] Performed By: #### 5 7021-8 ####[facility] MIRAMARNCLIAngel [id number] [place] [address] [place] Monocytes (Bld) [#/Vol] 0.51 10*3/uL Normal <0.87 [facility] Comment on above: Order Comment: Speci men Type: BLOOD SPECIMENOrdering Facility: [facility] Address: [address] [place] [address] Performed By: #### 5 7021-8 ####[facility]CL[facility] [id number] [place] [address] [place] Monocytes/100 WBC (Bld) 4.4 % Normal [facility] Comment on above: Order Comment: Speci men Type: BLOOD SPECIMENOrdering Facility: [facility] Address: [address] [place] [address] Performed By: #### 5 7021-8 ####[facility]CL[facility] [id number] [place] [address] [place] Neutrophils (Bld) [#/Vol] 9.18 10*3/uL High 1.45-7.50 [facility] Comment on above: Order Comment: Speci men Type: BLOOD SPECIMENOrdering Facility: [facility] Address: [address] [place] [address] Performed By: #### 5 7021-8 ####[facility] MILLWNCLIA [id number] [place] [address] [place] Neutrophils/100 WBC (Bld) 78.4 % Normal [facility] Comment on above: Order Comment: Speci men Type: BLOOD SPECIMENOrdering Facility: [facility] Address: [address] [place] [address] Performed By: #### 5 7021-8 ####[facility] [id number] [place] [address] [place] Nucleated RBC (Bld) [#/Vol] 10*3/uL Normal <0.01 [facility] Comment on above: Order Comment: Speci men Type: BLOOD SPECIMENOrdering Facility: [facility] Address: [address] [place] [address] Performed By: #### 5 7021-8 ####[facility] [id number] [place] [address] [place] Nucleated RBC/100 WBC (Bld) [Ratio] 0.0 /100 WBC Normal [facility] Comment on above: Order Comment: Speci men Type: BLOOD SPECIMENOrdering Facility: [facility] Address: [address] [place] [address] Performed By: #### 5 7021-8 ####[facility] [id number] [place] [address] [place] Platelet mean volume (Bld) [Entitic vol] 11.2 fL Normal 9.0-12.7 [facility] Comment on above: Order Comment: Speci men Type: BLOOD SPECIMENOrdering Facility: [facility] Address: [address] [place] [address] Performed By: #### 5 7021-8 ####[facility] [id number] [place] [address] [place] Platelets (Bld) [#/Vol] 201 10*3/uL Normal 150-400 [facility] Comment on above: Order Comment: Speci men Type: BLOOD SPECIMENOrdering Facility: [facility] Address: [address] [place] [address] Performed By: #### 5 7021-8 ####[facility] MIRAMARNCLIA [id number] [place] [address] [place] RBC (Bld) [#/Vol] 4.80 10*6/uL Normal 3.90-5.20 [facility] Comment on above: Order Comment: Speci men Type: BLOOD SPECIMENOrdering Facility: [facility] Address: [address] [place] [address] Performed By: #### 5 7021-8 ####[facility] MIRAMARNCA [id number] [place] [address] [place] WBC (Bld) [#/Vol] 11.72 10*3/uL High 3.70-11.00 [facility] Comment on above: Order Comment: Speci men Type: BLOOD SPECIMENOrdering Facility: [facility] Address: [address] [place] [address] Performed By: #### 5 7021-8 ####[facility] [id number] [place] [address] [place] HBV surface Ag Ql (S)on Interpretation and review of laboratory results Normal [facility] HBV surface Ag Ser Qlon HBV surface Ag Ql (S) Negative Normal Negative [facility] Comment on above: Order Comment: Speci men Type: BLOOD SPECIMENOrdering Facility: [facility] Address: [address] [place] [address] Performed By: #### 3 1201-7, 42608-6, 5195-3 ####[facility] [id number] [place] [address] [place] HCV Ab Ql (S)on 08-12-2024 Interpretation and review of laboratory results Normal [facility] HCV Ab Ser Qlon 08-12-2024 HCV Ab Ql (S) Negative Normal Negative [facility] Comment on above: Order Comment: Speci rome Type: BLOOD SPECIMENOrdering Facility: [facility] Address: [address] [place] [address] Result Comment: The result suggests no evidence of active infection with Hepatitis C virus. Should recent infection be suspected, repeat testing may be considered 4-6 weeks after this draw. Performed By: #### 1 6128-1 ####[facility] LABCLIA [id number] [place] [address] [place] HEPATITIS B SURFACE ANTIGENo n 08-12-2024 HBV surface Ag Ql (S) Negative Negative [facility] HEPATITIS C ANTIBODY IA WITH CONFIRMATIONon 08-12-2024 HCV Ab Ql (S) Negative Negative [facility] Comment on above: The result suggests no evidence of active infection with Hepatitis C virus. Should recent infection be suspected, repeat testing may be considered 4-6 weeks after this draw. HGB ELECTROPHORESIS FOR EVAL (LAB ORDER)on 08-12-2024 Hemoglobin A (Bld) [Mass fraction] 97.4 % Normal 96.2-98.0 [facility] Comment on above: Order Comment: Sherine peter Type: BLOOD SPECIMEN [facility] Address: [address] [place] [address] Performed By: #### 7 3752-8 #### [facility] CLIA [id number] [address] [place] [address] [place] Hemoglobin A2 (Bld) [Mass fraction] 2.6 % Normal 2.0-3.1 [facility] Comment on above: Order Comment: Sherine peter Type: BLOOD SPECIMEN [facility] Address: [address] [place] [address] Performed By: #### 7 3752-8 #### [facility] CLIA [id number] [address] [place] [address] [place] Hemoglobin Unsp Elph (Bld) [Mass fraction] No abnormal hemoglobin identified. Normal No abnormal hemoglobin identified. [facility] Comment on above: Order Comment: Speci men Type: BLOOD SPECIMEN [facility] Address: [address] [place] [address] Performed By: #### 7 3752-8 #### [facility] CLIA [id number] [address] [place] [address] [place] HGB EVALUATION CASCADE INTER Luis 08-12-2024 Hemoglobin pattern (Bld) [Interp] Reviewed by Kimberli Waldron M.D., Ph.D Normal [facility] Comment on above: Order Comment: Speci men Type: BLOOD SPECIMEN [facility] Address: [address] [place] [address] Performed By: #### 7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 150-450 [facility] Work Phone: Serum Treponema species anti body detectionon 02-08-2022 Treponema sp Ab Ql (S) Non-Reactive [facility] Work Phone: Serum or plasma estradiol (E 2) measurement (mass/volume)on 02-08-2022 E2 [Mass/Vol] 50.5 pg/mL [facility] Work Phone: Comment on above: NORMAL [...] 24.89 kg/m2 Bebeto Valencia MD Work Phone: [facility] 03-20-2025 10:13-0400 Body weight 69.94 kg Bebeto Valencia MD Work Phone: [facility] 03-20-2025 10:13-0400 Diastolic blood pressure 80 mm[Hg] Bebeto Valencia MD Work Phone: [facility] 03-20-2025 10:13-0400 Systolic blood pressure 120 mm[Hg] Bebeto Valencia MD Work Phone: [facility] 03-10-2025 14:31-0400 Body mass index (BMI) [Ratio] 24.69 kg/m2 Zina Jensen ENERGY AUDIT ADVISOR.CNM Work Phone: [facility] 03-10-2025 14:31-0400 Body weight 69.4 kg Zina Jensen ENERGY AUDIT ADVISOR.C NM Work Phone: [facility] 03-10-2025 14:31-0400 Diastolic blood pressure 64 mm[Hg] Zina Jensen ENERGY AUDIT ADVISOR.CNM Work Phone: [facility] 03-10-2025 14:31-0400 Systolic blood pressure 110 mm[Hg] Zina Jensen ENERGY AUDIT ADVISOR.CNM Work Phone: [facility] 03-06-2025 14:15-0400 Body mass index (BMI) [Ratio] 25.34 kg/m2 Livia Denny MD Work Phone: [facility] 03-06-2025 14:15-0400 Body weight 71.2 kg Livia Denny MD Work Phone: [facility] 03-06-2025 14:15-0400 Diastolic blood pressure 72 mm[Hg] Livia Denny MD Work Phone: [facility] 03-06-2025 14:15-0400 Heart rate 87 /min Livia Denny MD Work Phone: [facility] 03-06-2025 14:15-0400 SaO2% (BldA) [Mass fraction] 100 % Livia Denny MD Work Phone: [facility] 03-06-2025 14:15-0400 Systolic blood pressure 115 mm[Hg] Livia Denny MD Work Phone: [facility] 03-05-2025 15:24-0400 Body mass index (BMI) [Ratio] 24.69 kg/m2 Valerio Leon MD Work Phone: [facility] 03-05-2025 15:24-0400 Body weight 69.4 kg Valerio Leon MD Work Phone: [facility] 03-05-2025 15:24-0400 Diastolic blood pressure 70 mm[Hg] Valerio Leon MD Work Phone: [facility] 03-05-2025 15:24-0400 Systolic blood pressure 128 mm[Hg] Valerio Leon MD Work Phone: [facility] 02-24-2025 16:14-0400 Body mass index (BMI) [Ratio] 24.95 kg/m2 Peter Teresa MD Work Phone: [facility] 02-24-2025 16:14-0400 Body weight 70.13 kg Peter Teresa MD Work Phone: [facility] 02-24-2025 16:14-0400 Diastolic blood pressure 76 mm[Hg] Peter Teresa MD Work Phone: [facility] 02-24-2025 16:14-0400 Systolic blood pressure 120 mm[Hg] Peter Teresa MD Work Phone: [facility] 02-10-2025 13:52-0400 Body mass index (BMI) [Ratio] 24.53 kg/m2 Vicky Engel ENERGY AUDIT ADVISOR.CNM Work Phone: [facility] 02-10-2025 13:52-0400 Body weight 68.95 kg Vicky Engel ENERGY AUDIT ADVISOR .CNM Work Phone: [facility] 02-10-2025 13:52-0400 Diastolic blood pressure 60 mm[Hg] Vicky Engel ENERGY AUDIT ADVISOR.CNM Work Phone: [facility] 02-10-2025 13:52-0400 Systolic blood pressure 118 mm[Hg] Vicky Plotdylon ENERGY AUDIT ADVISOR.CNM Work Phone: [facility] 01-31-2025 16:06-0400 Body mass index (BMI) [Ratio] 24.21 kg/m2 Hanna Gonzales MD Work Phone: [facility] 01-31-2025 16:06-0400 Body weight 68.04 kg Hanna gloria MD Work Phone: [facility] 01-31-2025 16:06-0400 Diastolic blood pressure 60 mm[Hg] Hanna Gonzales MD Work Phone: [facility] 01-31-2025 16:06-0400 Systolic blood pressure 122 mm[Hg] Hanna Gonzales MD Work Phone: [facility] 01-17-2025 15:41-0400 Body mass index (BMI) [Ratio] 23.89 kg/m2 Zina Jensen APRN.CNM Work Phone: [facility] 01-17-2025 15:41-0400 Body weight 67.13 kg Zina Jensen APRN.C NM Work Phone: [facility] 01-17-2025 15:41-0400 Diastolic blood pressure 64 mm[Hg] Zina Jensen ENERGY AUDIT ADVISOR.CNM Work Phone: [facility] 01-17-2025 15:41-0400 Systolic blood pressure 116 mm[Hg] Zina Mikey ENERGY AUDIT ADVISOR.CNM Work Phone: [facility] 01-01-2025 08:06-0400 Body mass index (BMI) [Ratio] 23.89 kg/m2 Zina Mikey ENERGY AUDIT ADVISOR.CNM Work Phone: [facility] 01-01-2025 08:06-0400 Body weight 67.13 kg Zina Jensen APRN.C NM Work Phone: [facility] 01-01-2025 08:06-0400 Diastolic blood pressure 62 mm[Hg] Zina Jensen ENERGY AUDIT ADVISOR.CNM Work Phone: [facility] 01-01-2025 08:06-0400 Systolic blood pressure 110 mm[Hg] Zina Jensen ENERGY AUDIT ADVISOR.CNM Work Phone: [facility] 12-04-2024 13:11-0400 Body mass index (BMI) [Ratio] 22.44 kg/m2 Vicky Plotts ENERGY AUDIT ADVISOR.CNM Work Phone: [facility] 12-04-2024 13:11-0400 Body weight 63.05 kg Ivcky Plotts ENERGY AUDIT ADVISOR .CNM Work Phone: [facility] 12-04-2024 13:11-0400 Diastolic blood pressure 64 mm[Hg] Vicky Plotts ENERGY AUDIT ADVISOR.CNM Work Phone: [facility] 12-04-2024 13:11-0400 Systolic blood pressure 112 mm[Hg] Vicky Plotts ENERGY AUDIT ADVISOR.CNM Work Phone: [facility] 11-08-2024 14:16-0500 Body mass index (BMI) [Ratio] 21.31 kg/m2 Zina Jensen ENERGY AUDIT ADVISOR.CNM Work Phone: [facility] 11-08-2024 14:16-0500 Body weight 59.88 kg Zina Jensen APRN.C NM Work Phone: [facility] 11-08-2024 14:16-0500 Diastolic blood pressure 62 mm[Hg] Zina Jensen ENERGY AUDIT ADVISOR.CNM Work Phone: [facility] 11-08-2024 14:16-0500 Systolic blood pressure 110 mm[Hg] Zina Mikey ENERGY AUDIT ADVISOR.CNM Work Phone: [facility] 10-15-2024 10:07-0500 Body mass index (BMI) [Ratio] 20.82 kg/m2 Zina Mikey ENERGY AUDIT ADVISOR.CNM Work Phone: [facility] 10-15-2024 10:07-0500 Body weight 58.51 kg Zina Jensen ENERGY AUDIT ADVISOR.C NM Work Phone: [facility] 10-15-2024 10:07-0500 Diastolic blood pressure 66 mm[Hg] Zina Jensen ENERGY AUDIT ADVISOR.CNM Work Phone: [facility] 10-15-2024 10:07-0500 Systolic blood pressure 98 mm[Hg] Zina Jensen ENERGY AUDIT ADVISOR.CNM Work Phone: [facility] 09-13-2024 15:26-0500 Body mass index (BMI) [Ratio] 20.34 kg/m2 Zina Jensen ENERGY AUDIT ADVISOR.CNM Work Phone: [facility] 09-13-2024 15:26-0500 Body weight 57.15 kg Zina Mikey ENERGY AUDIT ADVISOR.C NM Work Phone: [facility] 09-13-2024 15:26-0500 Diastolic blood pressure 60 mm[Hg] Zina Jensen ENERGY AUDIT ADVISOR.CNM Work Phone: [facility] 09-13-2024 15:26-0500 Systolic blood pressure 100 mm[Hg] Zina Jensen ENERGY AUDIT ADVISOR.CNM Work Phone: [facility] 09-03-2024 14:24-0500 Body mass index (BMI) [Ratio] 20.34 kg/m2 Zina Jensen ENERGY AUDIT ADVISOR.CNM Work Phone: [facility] 09-03-2024 14:24-0500 Body weight 57.15 kg Zina Mikey ENERGY AUDIT ADVISOR.C NM Work Phone: [facility] 09-03-2024 14:24-0500 Diastolic blood pressure 64 mm[Hg] Zina Jensen ENERGY AUDIT ADVISOR.CNM Work Phone: [facility] 09-03-2024 14:24-0500 Systolic blood pressure 118 mm[Hg] Zina Jensen ENERGY AUDIT ADVISOR.CNM Work Phone: [facility] 08-20-2024 09:22-0500 Body mass index (BMI) [Ratio] 20.5 kg/m2 Zina Jensen ENERGY AUDIT ADVISOR.CNM Work Phone: [facility] 08-20-2024 09:22-0500 Body weight 57.61 kg Zina Jensen ENERGY AUDIT ADVISOR.C NM Work Phone: [facility] 08-20-2024 09:22-0500 Diastolic blood pressure 60 mm[Hg] Zina Ejnsen ENERGY AUDIT ADVISOR.CNM Work Phone: [facility] 08-20-2024 09:22-0500 Systolic blood pressure 112 mm[Hg] Zina Jensen ENERGY AUDIT ADVISOR.CNM Work Phone: [facility] 08-12-2024 09:21-0500 Body height 167.6 cm Zina Jensen ENERGY AUDIT ADVISOR.C NM Work Phone: [facility] 08-12-2024 09:21-0500 Body mass index (BMI) [Ratio] 20.18 kg/m2 Zina Jensen ENERGY AUDIT ADVISOR.CNM Work Phone: [facility] 08-12-2024 09:21-0500 Body weight 56.7 kg Zina Jensen ENERGY AUDIT ADVISOR.C NM Work Phone: [facility] 08-12-2024 09:21-0500 Diastolic blood pressure 60 mm[Hg] Zina Jensen ENERGY AUDIT ADVISOR.CNM Work Phone: [facility] 08-12-2024 09:21-0500 Systolic blood pressure 108 mm[Hg] Zina Jensen ENERGY AUDIT ADVISOR.CNM Work Phone: [facility] 04-02-2024 16:08-0400 Body mass index (BMI) [Ratio] 19.68 kg/m2 Brad Rodriguez MD Work Phone: [facility] 04-02-2024 16:08-0400 Body weight 54.9 kg Brad Rodriguez MD Work Phone: [facility] 04-02-2024 16:08-0400 Diastolic blood pressure 64 mm[Hg] Brad Rodriguez MD Work Phone: [facility] 04-02-2024 16:08-0400 Heart rate 98 /min Brad Rodriguez MD Work Phone: [facility] 04-02-2024 16:08-0400 Systolic blood pressure 119 mm[Hg] Brad Rodriguez MD Work Phone: [facility] 05-02-2023 10:29-0400 Body height 167 cm Ludivina Flower MD Work Phone: [facility] 05-02-2023 10:29-0400 Body weight 53.98 kg Ludivina Flower MD Work Phone: [facility] 05-02-2023 10:29-0400 Diastolic blood pressure 77 mm[Hg] Ludivina Flower MD Work Phone: [facility] 05-02-2023 10:29-0400 Heart rate 90 /min Ludivina Flower MD Work Phone: [facility] 05-02-2023 10:29-0400 SaO2% (BldA) [Mass fraction] 100 % Ludivina Flower MD Work Phone: [facility] 05-02-2023 10:29-0400 Systolic blood pressure 114 mm[Hg] Ludivina Flower MD Work Phone: [facility] 03-28-2023 08:02-0400 Body height 167.6 cm Nurse Beac Work Phone: [facility] 03-28-2023 08:02-0400 Body weight 54 kg Nurse Beac Work Phone: [facility] 03-28-2023 08:02-0400 Diastolic blood pressure 73 mm[Hg] Nurse Beac Work Phone: [facility] 03-28-2023 08:02-0400 Heart rate 95 /min Nurse Beac Work Phone: [facility] 03-28-2023 08:02-0400 SaO2% (BldA) [Mass fraction] 100 % Nurse Beac Work Phone: [facility] 03-28-2023 08:02-0400 Systolic blood pressure 122 mm[Hg] Nurse Beac Work Phone: [facility] 03-28-2023 07:29-0400 Body height 167.6 cm Racheal Bhatt ENERGY AUDIT ADVISOR .CABLEWAY OPERATOR Work Phone: [facility] 03-28-2023 07:29-0400 Body weight 54 kg Racheal Bhatt ENERGY AUDIT ADVISOR .CABLEWAY OPERATOR Work Phone: [facility] 03-28-2023 07:29-0400 Diastolic blood pressure 73 mm[Hg] Racheal Bhatt ENERGY AUDIT ADVISOR.CABLEWAY OPERATOR Work Phone: [facility] 03-28-2023 07:29-0400 Heart rate 95 /min Racheal Bhatt ENERGY AUDIT ADVISOR .CABLEWAY OPERATOR Work Phone: [facility] 03-28-2023 07:29-0400 SaO2% (BldA) [Mass fraction] 100 % Racheal Bhatt ENERGY AUDIT ADVISOR.CABLEWAY OPERATOR Work Phone: [facility] 03-28-2023 07:29-0400 Systolic blood pressure 122 mm[Hg] Racheal Bhatt ENERGY AUDIT ADVISOR.CABLEWAY OPERATOR Work Phone: [facility] 12-05-2022 09:58-0400 Body height 167.6 cm Eileen House ENERGY AUDIT ADVISOR -CABLEWAY OPERATOR Work Phone: [facility] 12-05-2022 09:58-0400 Body mass index (BMI) [Ratio] 18.88 kg/m2 Eileen House ENERGY AUDIT ADVISOR-CABLEWAY OPERATOR Work Phone: [facility] 12-05-2022 09:58-0400 Body temperature 97.9 [degF] Eileen House ENERGY AUDIT ADVISOR -CABLEWAY OPERATOR Work Phone: [facility] 12-05-2022 09:58-0400 Body weight 53.07 kg Eileen House ENERGY AUDIT ADVISOR -CABLEWAY OPERATOR Work Phone: [facility] 12-05-2022 09:58-0400 Diastolic blood pressure 77 mm[Hg] Eileen House ENERGY AUDIT ADVISOR-CABLEWAY OPERATOR Work Phone: [facility] 12-05-2022 09:58-0400 Heart rate 77 /min Eileen House ENERGY AUDIT ADVISOR -CABLEWAY OPERATOR Work Phone: [facility] 12-05-2022 09:58-0400 Systolic blood pressure 128 mm[Hg] Eileen House ENERGY AUDIT ADVISOR-CABLEWAY OPERATOR Work Phone: [facility] Encounters Encounter Date Encounter Type Care Provider Facility Start: 03-20-2025 End: 03-20-2025 Patient encounter procedure Bebeto Valencia MD Work Phone: OB/Gynecology Comment on above: 39 weeks gestation o f (HCC) (Primary Dx); Supervision of high risk in third trimester (HCC); Positive GBS test; Cavernoma or capillary telangiectasia Start: 03-20-2025 End: 03-20-2025 ambulatory CECILE RUTH Facility:[facility] Start: 03-14-2025 End: 03-14-2025 ambulatory Zina Jensen APRN.CNM Work Phone: OB/Gynecology Comment on above: Amoxicillin allergy skin testing results Start: 03-10-2025 End: 03-10-2025 ambulatory Lucinda Velazquez MA [facility] Start: 03-10-2025 End: 03-10-2025 Patient encounter procedure Lucinda Velazquez MA [facility] Comment on above: Population Health Na vigation Outreach (Ob/peds) Supervision of high risk in third trimester (HCC) (Primary Dx); 38 weeks gestation of (HCC); Cavernoma; Positive GBS test; Family history of congenital heart defect; Penicillin allergy; Rh negative state in antepartum period, first trimester (HCC); ERICK (generalized anxiety disorder); PTSD (post-traumatic stress disorder); History of posttraumatic stress disorder (PTSD) Start: 03-10-2025 End: 03-26-2025 Telephone encounter Zina Jensen APRN.CNM Work Phone: OB/Gynecology Comment on above: Care Start: 03-06-2025 End: 03-06-2025 Patient encounter procedure Livia Denny MD Work Phone: NEUROLOGY Comment on above: Cavernoma or capilla ry telangiectasia (Primary Dx) Start: 03-06-2025 End: 03-06-2025 ambulatory UNKNOWN PROVIDER Facility:[facility] Start: 03-05-2025 End: 03-05-2025 Patient encounter procedure Valerio Leon MD Work Phone: OB/Gynecology Comment on above: Supervision of high risk in third trimester (HCC) (Primary Dx); 37 weeks gestation of (HCC); Positive GBS test; Adverse effect of penicillamine, initial encounter Start: 03-05-2025 End: 03-05-2025 ambulatory JEREMIAH CENTENO Facility:[facility] Start: 03-03-2025 End: 03-24-2025 Telephone encounter Livia Denny MD Work Phone: [facility] Comment on above: Opened In Error Appointment; Imaging /Records Start: 03-03-2025 ambulatory Peter Teresa Facility:[facility] Start: 02-24-2025 End: 02-24-2025 Patient encounter procedure Peter Teresa MD Work Phone: OB/Gynecology Comment on above: Encounter for superv ision of normal first in third trimester (HCC) (Primary Dx); 28 weeks gestation of (HCC); 36 weeks gestation of (HCC); Cavernoma; History of intestinal surgery; Encounter for supervision of normal first in first trimester (HCC) Start: 02-24-2025 End: 02-24-2025 ambulatory JEREMIAH CENTENO Facility:[facility] Start: 02-19-2025 End: 02-19-2025 [facility] Start: 02-14-2025 End: 02-24-2025 Telephone encounter Vicky Engel APRN.CNM Work Phone: OB/Gynecology Comment on above: Consult Start: 02-12-2025 End: 02-12-2025 Patient encounter procedure Misbah Chen MD Work Phone: Pediatric Cardiology Start: 02-12-2025 End: 02-12-2025 ambulatory Misbah Chen MD Work Phone: Pediatric Cardiology Start: 02-10-2025 End: 02-10-2025 Patient encounter procedure Vicky Perdylon ENERGY AUDIT ADVISOR.CNM Work Phone: OB/Gynecology Comment on above: 34 weeks gestation o f (HCC) (Primary Dx); Encounter for supervision of normal first in third trimester ([facility]); ERICK (generalized anxiety disorder); History of bowel resection; Cavernoma or capillary telangiectasia Start: 02-10-2025 End: 02-10-2025 [facility] JEREMIAH CENTENO Facility:[facility] Start: 02-07-2025 End: 02-11-2025 ambulatory Zina Jensen [...] of (HCC) Start: 01-31-2025 End: 01-31-2025 ambulatory [facility] Facility:[facility] Start: 01-23-2025 End: 03-25-2025 Follow-up encounter Lydia Naik MD Work Phone: OB/Gynecology Start: 01-21-2025 End: 03-23-2025 Follow-up encounter Zina Jensen APRN.CNM Work Phone: OB/Gynecology Start: 01-20-2025 End: 03-22-2025 Follow-up encounter Valerio Leon MD Work Phone: OB/Gynecology Start: 01-17-2025 End: 01-17-2025 ambulatory [facility] Facility:[facility] Start: 01-17-2025 End: 01-17-2025 Patient encounter procedure Zina Jensen APRN.CNM Work Phone: OB/Gynecology Comment on above: Encounter for superv ision of normal first in second trimester ([facility]) (Primary Dx); History of posttraumatic stress disorder (PTSD); Family history of congenital heart defect; 30 weeks gestation of ([facility]); PTSD (post-traumatic stress disorder); ERICK (generalized anxiety disorder); Family history of hypothyroidism Encounter for randal hicks screening for malformation using ultrasound ([facility]) (Primary Dx); 30 weeks gestation of ([facility]) Start: 01-17-2025 End: 01-17-2025 ambulatory [facility] Facility:[facility] Start: 01-16-2025 End: 01-16-2025 Telephone encounter Jossy Lara MD Work Phone: Pediatric Cardiology Comment on above: Care Coordination (F etal echo f/u) Maternal care for (s uspected) abnormality and damage, unspecified, fetus 1 (HCC) (Primary Dx) Start: 01-03-2025 End: 01-03-2025 Telephone encounter Zina Jensen APRN.CNM Work Phone: OB/Gynecology Comment on above: Medical record jerome ching from [facility] Start: 01-01-2025 End: 03-03-2025 Follow-up encounter Vicky [...] negative state in antepartum period, first trimester ([facility]); History of asthma; Excessive weight gain in , third trimester ([facility]); Cavernoma or capillary telangiectasia Start: 01-01-2025 End: 01-01-2025 [facility] Start: 12-24-2024 End: 12-24-2024 ambulatory Zina Jensen APRN.CNM Work Phone: OB/Gynecology Comment on above: Glucose Tolerance Te st Options Start: 12-04-2024 End: 12-04-2024 ambulatory [facility] Facility:[facility] Start: 12-04-2024 End: 12-04-2024 Patient encounter procedure Vicky Engel APRN.CNM Work Phone: OB/Gynecology Comment on above: Encounter for superv ision of normal first in second trimester (HCC) (Primary Dx); History of posttraumatic stress disorder (PTSD); Rh negative state in antepartum period, first trimester ([facility]); ERICK (generalized anxiety disorder); Family history of congenital heart defect; 24 weeks gestation of ([facility]); Screening for diabetes mellitus Start: 11-19-2024 End: 01-19-2025 Follow-up encounter Zina Jensen APRN.CNM Work Phone: OB/Gynecology Start: 11-19-2024 End: 11-19-2024 Patient encounter procedure Jossy Lara MD Work Phone: Pediatric Cardiology Start: 11-19-2024 End: 11-19-2024 ambulatory Jossy Lara MD Work Phone: Pediatric Cardiology Start: 11-11-2024 End: 01-11-2025 Follow-up encounter Valerio Leon MD Work Phone: OB/Gynecology Start: 11-08-2024 End: 11-08-2024 ambulatory JEREMIAH CENTENO Facility:[facility] Start: 11-08-2024 End: 11-08-2024 Patient encounter procedure [...] of Start: 11-04-2024 End: 11-04-2024 ambulatory [facility] Facility:[facility] Start: 10-15-2024 End: 10-15-2024 ambulatory [facility] Start: 10-15-2024 End: 10-15-2024 Patient encounter procedure [...] of asthma Start: 09-17-2024 End: 09-17-2024 ambulatory JEREMIAH CENTENO Facility:[facility] Start: 09-13-2024 End: 09-13-2024 ambulatory JEREMIAH CENTENO Facility:[facility] Start: 09-13-2024 End: 09-13-2024 ambulatory [facility] Start: 09-13-2024 End: 09-13-2024 Patient encounter procedure Whi [employer] 1 Computer Information Systems Instructor Mfm Wstr Mob Maternal Medicine Comment on [...] Cloudy urine Start: 09-03-2024 End: 09-03-2024 ambulatory [facility] Facility:[facility] Start: 09-02-2024 End: 09-02-2024 Telephone encounter Vicky Engel APRN.CNM Work Phone: OB/Gynecology Comment on above: OB Possible UTI Start: 08-20-2024 End: 08-20-2024 ambulatory [facility] Facility:[facility] Start: 08-20-2024 End: 08-20-2024 Patient encounter procedure Zina Jensen APRN.CNM Work Phone: OB/Gynecology Comment on above: 9 weeks gestation of (Primary Dx); Family history of congenital heart defect Start: 08-12-2024 End: 08-12-2024 ambulatory [facility] Facility:[facility] Start: 08-12-2024 End: 08-12-2024 ambulatory [facility] Facility:[facility] Start: 08-12-2024 End: 08-12-2024 Patient encounter procedure [...] 05-09-2024 End: 05-09-2024 Emergency department patient visit [facility] Facility:[facility] Start: 04-10-2024 ambulatory Brad Rodriguez MD Work Phone: Reproductive Endocrinology Infertility Comment on above: IVF Plan Update and Advice Start: 04-08-2024 Telephone encounter Brad lewis MD Work Phone: Reproductive Endocrinology Infertility Comment on above: pt needs notes from her apt on 04/02 sent [facility] Start: 04-02-2024 End: 04-02-2024 ambulatory [facility] Start: 04-02-2024 End: 04-02-2024 Patient encounter procedure Brad Rodriguez MD Work Phone: Reproductive Endocrinology Infertility Comment on above: Female infertility ( Primary Dx); Fertility testing Start: 11-24-2023 ambulatory Lalit Pritchard MD Work Phone: [facility] Start: 11-24-2023 Letter encounter Lalit Pritchard MD Work Phone: Reproductive Endocrinology Infertility Comment on above: Requesting inform[facility]al letter for [facility] Start: 09-18-2023 End: 09-18-2023 Patient encounter procedure Lalit Pritchard MD Work Phone: Reproductive Endocrinology Infertility Comment on above: No-show for appointm ent (Primary Dx) Start: 09-18-2023 End: 09-18-2023 Telemedicine consultation with patient Lalit Pritchard MD Work Phone: [facility] Start: 07-21-2023 Telephone encounter Lalit Pritchard MD Work Phone: Reproductive Endocrinology Infertility Start: 07-13-2023 Telephone encounter Lalit Pritchard MD Work Phone: Reproductive Endocrinology Infertility Comment on above: Cost of FET as self pay patient; Karla re fet/please follow up with patient Start: 07-04-2023 ambulatory CHELSY PERRY Facili ty:[facility] Start: 07-03-2023 ambulatory Kym Lin MD Work Phone: Reproductive Endocrinology Infertility Comment on above: Amoxicillin allergy testing Start: 07-03-2023 E-mail encounter stacie chen caregiver Kym Gtz MD Work Phone: [facility] Start: 06-22-2023 End: 06-22-2023 Patient encounter procedure Andrology Auditor Appraiser Work Phone: Andrology Lab Comment on above: Female infertility ( Primary Dx) examinatio n or test, unconfirmed (Primary Dx); Infertility, female Start: 06-21-2023 Telephone encounter Pablo Sm[facility] Comment on above: Patient Update Start: 06-11-2023 ambulatory Que boggs MD Work Phone: Reproductive Endocrinology Infertility Comment on above: Research study parti cipation Start: 06-11-2023 E-mail encounter stacie chen caregiver Que Zelaya MD Work Phone: [facility] Start: 05-31-2023 ambulatory CHELSY Graff lity:[facility] Start: 05-31-2023 ambulatory CHELSY Graff lity:[facility] Start: 05-31-2023 End: 05-31-2023 Patient encounter procedure Chelsy Perry [facility] Work Phone: Division of Human Genetics [...] encounter status Ludivina Flower MD Work Phone: [facility] Start: 04-27-2023 Telephone encounter Lalit Pritchard MD Work Phone: Reproductive Endocrinology Infertility Comment on above: lmp 04/27 Karla farris is for fet Start: 04-21-2023 End: 05-04-2023 Patient encounter procedure Andrology Auditor Appraiser Work Phone: Andrology Lab Comment on above: Female infertility ( Primary Dx) Start: 04-21-2023 Telephone encounter Lalit Pritchard MD Work Phone: Reproductive Endocrinology Infertility Comment on above: she pt waiting for call back Start: 04-20-2023 Telephone encounter Patricia Gregory [facility] Lab Comment on above: Patient Update Start: 04-19-2023 Telephone encounter Pablo [facility] Comment on above: Patient Update Start: 04-16-2023 ambulatory [facility] Andrology Lab Comment on above: day 2 update Start: 04-16-2023 E-mail encounter fro m caregiver [facility] Start: 04-15-2023 ambulatory [facility] Andrology Lab Comment on above: fertilization Start: 04-15-2023 E-mail encounter fro m caregiver [facility] Start: 04-14-2023 End: 04-14-2023 Patient encounter procedure Andrology Auditor Appraiser Work Phone: Andrology Lab Comment on above: Primary female infer tility (Primary Dx) Start: 04-13-2023 End: 04-13-2023 Nursing evaluation of patient and report Nurse [facility] Work Phone: Reproductive Endocrinology Infertility Comment on above: Female infertility Start: 04-12-2023 End: 04-12-2023 Nursing evaluation of patient and report Brad Rodriguez MD Work Phone: Reproductive Endocrinology Infertility Comment on above: Female infertility Start: 04-11-2023 End: 04-11-2023 Nursing evaluation of patient and report Nurse Haydee [facility] Work Phone: Reproductive Endocrinology Infertility Comment on above: Female infertility Start: 04-07-2023 End: 04-07-2023 Nursing evaluation of patient and report Nurse Haydee [facility] Work Phone: Reproductive Endocrinology Infertility Comment on above: Female infertility Start: 04-06-2023 ambulatory Jerilyn dave ENERGY AUDIT ADVISOR.CABLEWAY OPERATOR Work Phone: Reproductive Endocrinology Infertility Start: 04-04-2023 ambulatory Lalit Pritchard MD Work Phone: [facility] Start: 04-04-2023 End: 04-04-2023 Nursing evaluation of patient and report Nurse [facility]dee [facility] Work Phone: Reproductive Endocrinology Infertility Comment on above: Female infertility Time sensitive Leupr olide Order clarification Start: 04-04-2023 Telephone encounter Lalit Pritchard MD Work Phone: Reproductive Endocrinology Infertility Comment on above: insurance update Start: 04-04-2023 End: 04-04-2023 Patient encounter procedure Racheal Bhatt ENERGY AUDIT ADVISOR.CABLEWAY OPERATOR Work Phone: Reproductive Endocrinology Infertility Comment on above: Preop examination (P rimary Dx); Encounter for male factor infertility in female patient Start: 04-04-2023 End: 04-04-2023 Preprocedural examination done Racheal Bhatt ENERGY AUDIT ADVISOR.CABLEWAY OPERATOR Work Phone: [facility] Work Phone: Start: 03-28-2023 End: 03-28-2023 Nursing evaluation of patient and report Nurse [facility] Work Phone: Reproductive Endocrinology Infertility Comment on above: Female infertility Start: 03-22-2023 ambulatory Lalit Pritchard MD Work Phone: Reproductive Endocrinology Infertility Comment on above: Baseline Apt confirm ation Baseline apt Start: 03-20-2023 ambulatory Lalit Pritchard MD Work Phone: Reproductive Endocrinology Infertility Comment on above: IVF Baseline Apt 03/05 12/25 Start: 03-03-2023 Telephone encounter Rachealanival Dominguez ENERGY AUDIT ADVISOR.CABLEWAY OPERATOR Work Phone: Reproductive Endocrinology Infertility Comment on [...] evaluation of patient and report Nurse [facility] Work Phone: Reproductive Endocrinology Infertility Comment on above: Fertility testing (P rimary Dx) Start: 12-05-2022 ambulatory EILEEN HOUSE [facility] ity:[facility] Start: 12-05-2022 End: 12-05-2022 Office outpatient new 45 minutes Eileen House APRN-CABLEWAY OPERATOR Work Phone: Division of Surgical Oncology Comment on above: Fibrocystic breast c hanges, bilateral (Primary Dx); Family history of breast cancer; Family history of prostate cancer; At high risk for breast cancer Start: 12-01-2022 ambulatory CHELSY [place] ty:[facility] Start: 11-11-2022 Telephone encounter [...] with patient Lalit Pritchard MD Work Phone: [facility] Start: 02-08-2022 End: 02-08-2022 [facility] Off Procedures Date Procedure Procedure Detail Performing [...] surgery History of intestinal surgery Vicky Engel ENERGY AUDIT ADVISOR.CNM Work Phone: Start: 01-17-2025 Us preg uterus after 1st trimest 09/04 gestation Zina Jensen ENERGY AUDIT ADVISOR.CNM Work Phone: Start: 01-01-2025 Antibody screen JEREMIAH SPENCER Comment on above: Order Comment: Speci men Type: BLOOD SPECIMENOrdering Facility: [facility] Address: [address] [place] [address] Performed By: #### T SPN ####CC MAIN BLOOD BANKCLIA [id number] [address] OF [place] Start: 11-08-2024 Us preg uterus after 1st trimest 09/04 gestation Zina Mikey BENOITN.CNM Work Phone: Start: 09-13-2024 Us nuchal translucency 1st gestation Zina Mikey BENOITN.CNM Work Phone: Start: 09-03-2024 Culture bacterial quanttative colony count urine Zina Mikey MORELAND.CNM Work Phone: Start: 09-03-2024 Urnls dip stick/tabl et rgnt auto w/o microscopy Zina Jensen ANICETO.CNM Work Phone: Start: 08-12-2024 Antibody screen JEREMIAH SPENCER Comment on above: Order Comment: Speci men Type: BLOOD SPECIMENOrdering Facility: [facility] Address: [address] [place] [address] Performed By: #### T SPN ####CC MAIN BLOOD BANKCLIA [id number] [address] Start: 08-12-2024 Us uterus l imited 1/ fetuses Zina Jensen ENERGY AUDIT ADVISOR.CN Work Phone: Start: 05-02-2023 Saline infus sonohysterography w/color doppler Racheal Dudziak ENERGY AUDIT ADVISOR.[facility] Work Phone: Start: 05-02-2023 Urine test visual color cmprsn meths Racheal Dudziak ENERGY AUDIT ADVISOR.CABLEWAY OPERATOR Work Phone: Start: 04-13-2023 Gonadotropin chorion ic quantitative Brad Rodriguez MD Work Phone: Start: 04-12-2023 Us pelvic nonobstetr ic image dcmtn limited/f/u Racheal Dudziak ENERGY AUDIT ADVISOR.CABLEWAY OPERATOR Work Phone: Start: 04-12-2023 Assay of estradiol Blanca susie Dudziak ENERGY AUDIT ADVISOR.CABLEWAY OPERATOR Work Phone: Start: 04-11-2023 Us pelvic nonobstetr ic image dcmtn limited/f/u Racheal Dudziak ENERGY AUDIT ADVISOR.CABLEWAY OPERATOR Work Phone: Start: 04-11-2023 Assay of estradiol Blanca susie Dudziak ENERGY AUDIT ADVISOR.CABLEWAY OPERATOR Work Phone: Start: 04-07-2023 Us pelvic nonobstetr ic image dcmtn limited/f/u Racheal Dudziak ENERGY AUDIT ADVISOR.CABLEWAY OPERATOR Work Phone: Start: 04-07-2023 Assay of estradiol [place] susie Dudziak ENERGY AUDIT ADVISOR.CABLEWAY OPERATOR Work Phone: Start: 04-04-2023 Us pelvic nonobstetr ic image dcmtn limited/f/u Racheal Dudziak ENERGY AUDIT ADVISOR.CABLEWAY OPERATOR Work Phone: Start: 04-04-2023 Assay of estradiol Blanca susie Dudziak ENERGY AUDIT ADVISOR.CABLEWAY OPERATOR Work Phone: Start: 03-28-2023 Us pelvic nonobstetr ic image dcmtn limited/f/u Racheal Dudziak ENERGY AUDIT ADVISOR.CABLEWAY OPERATOR Work Phone: Start: 03-28-2023 Assay of estradiol Blanca Bhatt APRN.CNP Work Phone: Start: 05-03-2022 ANTI MULLERIAN HORMONE [facility] Provider H/O: surgery History of intestinal surgery Peter Teresa MD Work Phone: Plan of Treatment Date Care Activity Detail Author Start: 05-19-2033 Tetanus vaccination TETANUS [facility] Start: 05-19-2033 Urine microalbumin profile DTaP,Tdap,Td Vaccine (9 - Td or Tdap) [facility] Start: 08-12-2029 Screening for malign ant neoplasm of cervix Cervical Cancer Screening [facility] Start: 05-05-2025 Influenza vaccination [facility] Start: 03-26-2025 End: 03-26-2025 Patient encounter procedure 03/26/2025 9:45 AM EDT Routine Office Visit OB/Gynecology [address] [place] [address] Vicky Engel APRN.CN [address] [place] [address] OB OB/Gynecology Comment on above: OB Start: 03-24-2025 End: 03-24-2025 Patient encounter procedure 03/24/2025 2:30 PM EDT Routine Office Visit OB/Gynecology [address] [place] [address] Jeremiah Cervantes APRN.CABLEWAY OPERATOR [address] [place] [address] OB OB/Gynecology Comment on above: OB Start: 03-20-2025 End: 03-20-2025 Patient encounter procedure 03/20/2025 3:45 PM EDT Routine Office Visit OB/Gynecology [address] [place] [address] Jeremiah Cervantes APRN.CABLEWAY OPERATOR [address] [place], [place] [address] OB OB/Gynecology Comment on above: OB Start: 03-20-2025 End: 03-20-2025 Patient encounter procedure 03/20/2025 10:20 AM EDT Routine Office Visit OB/Gynecology [address] [place] [address] Bebeto Valencia MD [address] [place] [address] OB OB/Gynecology Comment on above: OB Start: 03-14-2025 End: 03-14-2025 Patient encounter procedure 03/14/2025 11:15 AM EDT Routine Office Visit OB/Gynecology [address] [place], [place] [id number] Zina Jensen APRN.CN [address] [place] [id number] OB OB/Gynecology Comment on above: OB Start: 03-12-2025 End: 03-12-2025 ambulatory 03/12/2025 10:45 AM EDT [facility] Allergy [address] [place] [address] Kathy Toledo MD [address] [place] [address] Adverse effect of penicillamine, initial encounter [T50.6X5A] Allergy Comment on above: Adverse effect of pe nicillamine, initial encounter [T50.6X5A] Start: 03-06-2025 End: 03-06-2025 Patient encounter procedure 03/06/2025 2:00 PM EDT Office Visit NEUROLOGY [address] [facility] [place] [address] Livia Denny MD [address] [place], [place] [id number] 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 NEUROLOGY Comment on above: provisional diagnosi s is other malformations of cerebral vessels. Start: 03-05-2025 End: 03-05-2025 Patient encounter procedure 03/05/2025 3:10 PM EDT Routine Office Visit OB/Gynecology [address] [place] [address] Valerio Leon MD [address] [place] [address] OB OB/Gynecology Comment on above: OB Start: 02-24-2025 End: 02-24-2025 Patient encounter procedure 02/24/2025 4:20 PM EDT Routine Office Visit OB/Gynecology [address] [place] [address] Peter Teresa MD [address] [place] [address] OB OB/Gynecology Comment on above: OB Start: 02-12-2025 End: 02-12-2025 Follow-up encounter 02/12/2025 10:30 AM EDT Procedure Pediatric Cardiology [address] [address] [address] Misbah Chen MD [address] [place], [place] [id number] Follow up of known or suspected cardiac [...] 02/10/2025 2:30 PM EDT Results Only [place] [facility] [address] [place] [address] [facility] Start: 02-10-2025 End: 02-10-2025 Patient encounter procedure 02/10/2025 1:45 PM EDT Routine Office Visit OB/Gynecology [address] [place] [address] Vicky Engel APRN.[facility] [address] [place] [address] OB OB/Gynecology Comment on above: OB Start: 02-04-2025 End: 02-04-2025 ambulatory 02/04/2025 11:00 AM EDT Procedure Pediatric Cardiology [address] [place] [address] Jossy Lara MD [address] [place] [address] single 30 weeks Pediatric Cardiology Comment on above: single 30 week s Start: 02-04-2025 End: 02-04-2025 Patient encounter procedure 02/04/2025 11:00 AM EDT Office Visit Pediatric Cardiology [address] [place] [address] single 30 weeks Pediatric Cardiology Comment on above: single 30 week s Start: 01-31-2025 End: 01-31-2025 Patient encounter procedure 01/31/2025 3:50 PM EDT Routine Office Visit OB/Gynecology [address] [place] [address] Hanna Randall MD [address] [place] [address] Return in 2 weeks OB/Gynecology Comment on above: Return in 2 weeks Start: 01-29-2025 End: 01-29-2025 ambulatory 01/29/2025 9:00 AM EDT [address] [id number] Ger Javier MD [address] [place] [address] Abnormal imagining/ 28 weeks gestation of (HCC) [Z3A.28] [facility] Comment on above: Abnormal imagining/ 28 weeks gestation of (HCC) [Z3A.28] Start: 01-17-2025 End: 01-17-2025 Patient encounter procedure Maternal Medicine Comment on above: Growth Growth/OB Start: 01-17-2025 End: 04-18-2025 25-hydroxyvitamin D3 [Mass/volume] in Serum or Plasma [facility] Comment on above: Expected: 01/17/2025 , Expires: 04/18/2025 Start: 01-17-2025 End: 04-18-2025 Thyrotropin [Units/volume] in Serum or Plasma [facility] Comment on above: Expected: 01/17/2025 , Expires: 04/18/2025 Start: 01-17-2025 End: 04-18-2025 Toxoplasma gondii IgG Ab [Units/volume] in Serum [facility] Work Phone: Comment on above: Expected: 01/17/2025 , Expires: 04/18/2025 Start: 01-01-2025 End: 01-01-2026 OBSTETRIC ULTRASOUND WHI OBSTETRIC ULTRASOUND WHI Anc Imaging Routine Encounter for supervision of normal first in second trimester ([facility]) Expected: 01/01/2025, Expires: 01/01/2026 [facility] Work Phone: Comment on above: Expected: 01/01/2025 , Expires: 01/01/2026 Start: 01-01-2025 End: 01-01-2025 Patient encounter procedure 01/01/2025 8:00 AM EDT Routine Office Visit OB/Gynecology [address] [place] [address] Zina Jensen APRN.[facility] [address] [place] [address] Glucose Test /OB OB/Gynecology Comment on above: Glucose Test /OB Start: 12-04-2024 End: 03-05-2025 ANEMIA REFLEX PANEL ANEMIA REFLEX PANEL Lab Routine Encounter for supervision of normal first in second trimester History of posttraumatic stress disorder (PTSD) Rh negative state in antepartum period, first trimester ERICK (generalized anxiety disorder) Family history of congenital heart defect 24 weeks gestation of Expected: 12/04/2024, Expires: 03/05/2025 [facility] Comment on above: Expected: 12/04/2024 , [...] for diabetes mellitus Expected: 12/04/2024, Expires: 12/04/2025 [facility] Work Phone: Comment on above: [...] weeks gestation of Expected: 12/04/2024, Expires: 12/04/2025 [facility] Comment on above: Expected: 12/04/2024 , Expires: 12/04/2025 Start: 12-04-2024 End: 03-05-2025 TYPE + SCREEN TYPE + SCREEN Blood Bank Routine Encounter for supervision of normal first in second trimester History of posttraumatic stress disorder (PTSD) Rh negative state in antepartum period, first trimester ERICK (generalized anxiety disorder) Family history of congenital heart defect 24 weeks gestation of Expected: 12/04/2024, Expires: 03/05/2025 [facility] Comment on above: Expected: 12/04/2024 , Expires: 03/05/2025 Start: 12-04-2024 End: 12-04-2024 Patient encounter procedure 12/04/2024 1:15 PM EDT Routine Office Visit OB/Gynecology [address] [place] [address] Vicky Engel APRN.CNM [address] [place] [address] OB Routine OB/Gynecology Comment on above: OB Routine Start: 11-19-2024 End: 11-19-2024 ambulatory 11/19/2024 9:30 AM EDT Procedure Pediatric Cardiology [address] [place] [address] Jossy Lara MD [address] [place] [address] 9 weeks gestation of [Z3A.09] Pediatric Cardiology Comment on above: 9 weeks gestation of [Z3A.09] Start: 11-19-2024 End: 11-19-2024 Patient encounter procedure 11/19/2024 9:30 AM EDT Office Visit Pediatric Cardiology [address] [place] [address] 9 weeks gestation of [Z3A.09] Pediatric Cardiology Comment on above: 9 weeks gestation of [Z3A.09] Start: 11-08-2024 End: 11-08-2024 Patient encounter procedure 11/08/2024 9:45 AM EST Routine Office Visit OB/Gynecology [address] [place] [address] Zina Jensen APRN.CNM [address] [place] [address] OB Routine OB/Gynecology Comment on above: OB Routine Start: 11-08-2024 End: 11-08-2024 Patient encounter procedure 11/08/2024 8:30 AM EST Routine Office Visit OB/Gynecology [address] [place] [address] [facility], Computer Information Systems Instructor [facility] [address] [place] [address] Anatomy Scan OB/Gynecology Comment on above: Anatomy Scan Start: 11-05-2024 End: 11-05-2024 Patient encounter procedure 11/05/2024 9:45 AM EST Routine Office Visit OB/Gynecology [address] [place] [address] Zina Jensen APRN.CNLiyah [address] [place] [address] OB Routine OB/Gynecology Comment on above: OB Routine Start: 11-05-2024 End: 11-05-2024 Patient encounter procedure 11/05/2024 8:30 AM EST Routine Office Visit Maternal Medicine [address] [place] [address] Anatomy Scan Maternal Medicine Comment on above: Anatomy Scan Start: 10-15-2024 End: 10-15-2024 Patient encounter procedure 10/15/2024 10:00 AM EST Routine Office Visit OB/Gynecology [address] [place] [address] Zina Jensen APRN.CNM [address] [place] [address] OB Routine OB/Gynecology Comment on above: OB Routine Start: 09-17-2024 End: 09-17-2024 Patient encounter procedure 09/17/2024 8:20 AM EST Office [place] [address] [facility] Comment on above: [id number] Start: 09-13-2024 End: 09-13-2024 Patient encounter procedure Maternal Medicine Comment on above: Nuchal OB Routine Start: 09-03-2024 End: 09-03-2024 Patient encounter procedure 09/03/2024 2:30 PM EST Routine Office Visit OB/Gynecology [address] [place] [address] Zina Jensen APRN.CNM [address] [place] [address] OB-Urinary symptoms, brown spotting OB/Gynecology Comment on above: OB-Urinary symptoms, brown spotting Start: 08-20-2024 End: 08-20-2024 Patient encounter procedure 08/20/2024 9:30 AM EST Routine Office Visit OB/Gynecology [address] [place] [address] Zina Jensen APRN.[facility] [address] [place] [address] OB Routine OK Per AMBERLY OB/Gynecology Comment on above: OB Routine OK Per AMBERLY Start: 08-12-2024 End: 11-11-2024 ANEMIA REFLEX PANEL [facility] Work Phone: Comment on above: Expected: 08/12/2024 , Expires: 11/11/2024 Start: 08-12-2024 End: 11-11-2024 HEMOGLOBIN EVALUATION CASCADE [facility] Comment on above: Expected: 08/12/2024 , Expires: 11/11/2024 Start: 08-12-2024 End: 08-12-2025 NUCHAL TRANSLUCENCY WHI NUCHAL TRANSLUCENCY WHI Anc Imaging Routine with uncertain dates, antepartum Expected: 08/12/2024, Expires: 08/12/2025 [facility] Comment on above: Expected: 08/12/2024 , Expires: 08/12/2025 Start: 08-12-2024 End: 08-12-2025 OBSTETRIC ULTRASOUND WHI OBSTETRIC ULTRASOUND WHI Anc Imaging Routine with uncertain dates, antepartum Expected: 08/12/2024, Expires: 08/12/2025 [facility] Comment on above: Expected: 08/12/2024 , Expires: 08/12/2025 Start: 08-12-2024 End: 11-11-2024 Progesterone [Mass/volume] in Serum or Plasma [facility] Comment on above: Expected: 08/12/2024 , Expires: 11/11/2024 Start: 08-12-2024 End: 11-11-2024 TYPE + SCREEN [facility] Comment on above: Expected: 08/12/2024 , Expires: 11/11/2024 Start: 08-12-2024 End: 08-12-2024 Patient encounter procedure 08/12/2024 9:30 AM EST Initial Office Visit OB/Gynecology [address] [place] [address] Zina Jensen APRN.[facility] [address] [place] [address] New OB LMP 06/16 - coming at 9am (okay per AMBERLY - see phone note) OB/Gynecology Comment on above: New OB LMP 06/16 - c oming at 9am (okay per AMBERLY - see phone note) Start: 05-05-2024 Covid-19 Vaccine ( season) Covid-19 Vaccine () [facility] Start: 05-05-2024 Influenza vaccination Influenza Vacc ine (#1) [facility] Start: 04-23-2024 End: 04-16-2025 OFFICE HYSTEROSCOPY OFFICE HYSTEROSCOPY Procedures Routine Encounter for fertility testing Expected: 04/23/2024 (Approximate), Expires: 04/16/2025 [facility] Work Phone: Comment on above: Expected: 04/23/2024 (Approximate), Expires: 04/16/2025 Start: 12-04-2023 End: 12-04-2023 Patient encounter procedure Division of Surgical Oncology Start: 09-04-2023 Depression Assessment Depression Ass essment [facility] Start: 07-06-2023 End: 10-05-2023 Choriogonadotropin.beta subunit [Units/volume] in Serum or Plasma HCG QUANTITATIVE Lab STAT examination or test, unconfirmed Expected: 07/06/2023, Expires: 10/05/2023 [facility] Work Phone: Comment on above: Expected: 07/06/2023 , Expires: 10/05/2023 Start: 05-17-2023 End: 07-17-2023 Estradiol (E2) [Mass/volume] in Serum or Plasma ESTRADIOL-17B BLD Lab STAT Female infertility Expected: 05/17/2023, Expires: 07/17/2023 [facility] Work Phone: Comment on above: Expected: 05/17/2023 , Expires: 07/17/2023 Start: 05-17-2023 End: 07-17-2023 Progesterone [Mass/volume] in Serum or Plasma PROGESTERONE BLD Lab STAT Female infertility Expected: 05/17/2023, Expires: 07/17/2023 [facility] Work Phone: Comment on above: Expected: 05/17/2023 , Expires: 07/17/2023 Start: 05-16-2023 End: 05-16-2024 FOLLICULAR US WHI FOLLICULAR US WHI Anc Imaging Routine Female infertility Expected: 05/16/2023, Expires: 05/16/2024 [facility] Work Phone: Comment on above: Expected: 05/16/2023 , Expires: 05/16/2024 Start: 05-05-2023 Covid-19 Vaccine () Covid-19 Vaccine () [facility] Start: 05-05-2023 Influenza vaccination [facility] Start: 04-13-2023 End: 06-13-2023 Choriogonadotropin.beta subunit [Units/volume] in Serum or Plasma HCG QUANTITATIVE Lab STAT Female infertility Expected: 04/13/2023, Expires: 06/13/2023 [facility] Work Phone: Comment on above: Expected: 04/13/2023 , Expires: 06/13/2023 Start: 04-13-2023 End: 06-13-2023 Lutropin [Units/volume] in Serum or Plasma LUTEINIZING HORMONE Lab STAT Female infertility Expected: 04/13/2023, Expires: 06/13/2023 [facility] Work Phone: Comment on above: Expected: 04/13/2023 , Expires: 06/13/2023 Start: 04-13-2023 End: 06-13-2023 Progesterone [Mass/volume] in Serum or Plasma PROGESTERONE BLD Lab STAT Female infertility Expected: 04/13/2023, Expires: 06/13/2023 [facility] Work Phone: Comment on above: Expected: 04/13/2023 , Expires: 06/13/2023 Start: 03-23-2023 End: 05-23-2023 Estradiol (E2) [Mass/volume] in Serum or Plasma ESTRADIOL-17B BLD Lab STAT Female infertility Expected: 03/23/2023, Expires: 05/23/2023 [facility] Work Phone: Comment on above: Expected: 03/23/2023 , Expires: 05/23/2023 Start: 03-23-2023 End: 05-23-2023 Hematocrit [Volume Fraction] of Blood HEMATOCRIT (HCT) Lab STAT Female infertility Expected: 03/23/2023, Expires: 05/23/2023 [facility] Work Phone: Comment on above: Expected: 03/23/2023 , Expires: 05/23/2023 Start: 12-08-2022 End: 02-07-2023 Hepatitis B virus core Ab [Presence] in Serum HEP B CORE AB TOTAL Lab Routine Fertility testing Expected: 12/08/2022, Expires: 02/07/2023 [facility] Work Phone: Comment on above: Expected: 12/08/2022 , Expires: 02/07/2023 Start: 09-04-2022 [facility] Start: 2022 HPV TESTING HPV TESTING [facility] Start: 2022 Screening for malign ant neoplasm of cervix HPV Testing [facility] Start: 2013 PAP TESTING PAP TESTING [facility] Start: 2013 Screening for malign ant neoplasm of cervix [facility] Start: 2011 Third diphtheria, tetanus and acellular pertussis (DTaP) vaccination TDAP (ADULT) [facility] Start: 2011 Urine microalbumin profile [facility] Start: 2010 Anxiety Screening Anxiety Screening [facility] Start: 2010 [facility]: [facility] HEPAT[facility]IS C SCREENING HEPATITIS C [facility] Start: 2010 Hepatitis C screening Hepatitis C [facility] Start: 2010 HIV SCREENING HIV SCREENING [facility] Start: 2010 HIV screening HIV Screening [facility] Start: 2007 HIV screening HIV SCREENING DISCUSSI ON [facility] Start: 1992 COVID-19 VACCINE (#1) COVID-19 VACCI NE (#1) [facility] Start: 1992 HEPATITIS B (1 of 3 - 3-dose series) HEPATITIS B (1 of 3 - 3-dose series) [facility] Start: 1992 Hepatitis B Vaccine (1 of 3 - 3-dose series) Hepatitis B Vaccine (1 of 3 - 3-dose series) [facility] Start: 1992 Hepatitis C screening HEPATITI S C VIRUS SCREENING [facility] Start: 1992 Tetanus vaccination TETANUS [facility] Bacteria identified in Urine by Culture URINE CULTURE Microbiology Routine with uncertain dates, antepartum 08/12/2024 10:32 AM [facility] BACTERIAL VAGINOSIS NAAT BACTERIAL VAGINOSIS NAAT Lab Routine with uncertain dates, antepartum 08/12/2024 10:32 AM [facility] STEVE/TRICHOMONAS NAAT STEVE/TRICHOMONAS NAAT Lab Routine with uncertain dates, antepartum 08/12/2024 10:32 AM [facility] Chlamydia trachomatis+Neisseria gonorrhoeae DNA [Presence] in Unspecified specimen by KIRILL with probe detection GONORRHEA/CHLAMYDIA NAAT Lab Routine with uncertain dates, antepartum 08/12/2024 10:32 AM [facility] End: 08-20-2025 ECHO ECHO Cardiology Routine 9 weeks gestation of Family history of congenital heart defect 1 Occurrences starting 08/20/2024 until 08/20/2025 [facility] Work Phone: Comment on above: 1 Occurrences starti ng 08/20/2024 until 08/20/2025 End: 01-16-2026 ECHO ECHO Cardiology Routine Maternal care for (suspected) abnormality and damage, unspecified, fetus 1 (HCC) 1 Occurrences starting 01/16/2025 until 01/16/2026 [facility] Work Phone: Comment on above: 1 Occurrences starti ng 01/16/2025 until 01/16/2026 End: 03-27-2024 Estradiol (E2) [Mass/volume] in Serum or Plasma ESTRADIOL-17B BLD Lab STAT Female infertility 6 Occurrences starting 03/30/2023 until 03/27/2024, 5 completed [facility] Work Phone: Comment on above: 6 Occurrences starti ng 03/30/2023 until 03/27/2024, 5 completed End: 05-03-2023 FOLLICULAR US WHI FOLLICULAR US WHI Anc Imaging Routine Female infertility Daily for 6 Occurrences starting 03/23/2023 until 05/03/2023 [facility] Work Phone: Comment on above: Daily for 6 Occurren chloé starting 03/23/2023 until 05/03/2023 OFFICE HYSTEROSCOPY OFFICE HYSTE ROSCOPY Procedures Routine Fertility testing Ordered: 04/02/2024 [facility] Work Phone: Comment on above: Ordered: 04/02/2024 PAP TEST PAP TEST Lab Rou jamie with uncertain dates, antepartum Screening for cervical cancer Screening for human papillomavirus (HPV) 08/12/2024 10:32 AM EST [facility] End: 04-06-2024 Progesterone [Mass/volume] in Serum or Plasma PROGESTERONE BLD Lab STAT Female infertility 3 Occurrences starting 04/07/2023 until 04/06/2024 [facility] Work Phone: Comment on above: 3 Occurrences starti ng 04/07/2023 until 04/06/2024 ROUTINE, GR OUP B STREPTOCOCCUS BY PCR ROUTINE, GROUP B STREPTOCOCCUS BY PCR Microbiology Routine 28 weeks gestation of (HCC) 36 weeks gestation of ([facility]) Cavernoma Ordered: 02/24/2025 [facility] Work Phone: Comment on above: Ordered: 02/24/2025 URINE OB DIP B/O URINE OB DIP B/ O Lab Routine 34 weeks gestation of ([facility]) Encounter for supervision of normal first in third trimester ([facility]) ERICK (generalized anxiety disorder) History of bowel resection Cavernoma or capillary telangiectasia Ordered: 02/10/2025 [facility] Work Phone: Comment on above: Ordered: 02/10/2025 URINE OB DIP B/O URINE OB DIP B/ O Lab Routine Cavernoma Supervision of high risk in third trimester ([facility]) Positive GBS test Family history of congenital heart defect 38 weeks gestation of (HCC) Ordered: 03/10/2025 [facility] Work Phone: Comment on above: Ordered: 03/10/2025 [facility] Immunizations Immunization Date Immunization Notes Care Provider Fa felix 01-01-2025 RHO(D) immune globul in- IV or IM Zina Jensen APRN.CNM Work Phone: [facility] 06-29-2022 influenza virus vacc ine, unspecified formulation Lalit Pritchard MD Work Phone: [facility] Payers Date Payer Category Payer Self-pay [id number] 2022 Unknown [id number] 20 2022 Unknown [id number] 2022 Private Health Insurance [id number] 2022 Private Health Insurance [id number] 1992 Unknown [id number] 1992 Unknown [id number] 2. [id number] 1992 Unknown [id number] 2. [id number] 1992 Unknown [id number] 2. [id number] 1992 Unknown [id number] 2. [id number] Unknown [id number] [id number] Unknown [id number] [id number] Unknown [id number] [id number] [id number] Social History Date Type Detail [facility] Work Phone: Start: 1990 Sex Assigned At Female [facility] Tobacco smoking consumption unknown [facility] Start: 12-05-2022 End: 12-07-2022 Tobacco smoking status NHIS Never smoked tobacco [facility] History of tobacco use Passive smoker [facility] Start: 12-05-2022 End: 12-07-2022 Tobacco use and exposure Smokeless tobacco non-user [facility] Start: 12-05-2022 End: 03-10-2025 Alcohol intake Ex-drinker (finding) [facility] Start: 12-05-2022 History SDOH Financial 5 [facility] Start: 12-05-2022 History SDOH Food Worry 1 [facility] Start: 12-05-2022 History SDOH Transpo rt Med 2 [facility] Start: 1990 Sex Assigned At Not on file [facility] Start: 12-07-2022 Alcohol intake Current drinke r of alcohol (finding) [facility] Start: 12-07-2022 Alcohol Comment [facility] Start: 12-07-2022 End: 08-12-2024 History of Social function [facility] Start: 12-07-2022 End: 08-12-2024 Tobacco use panel [facility] National Score (1-10 0), lower number is lower risk 52 [facility] (I/We) worried wheth er (my/our) food would run out before (I/we) got money to buy more. Never true [facility] Start: 08-07-2024 Education 17 [facility] Start: 06-30-2024 [facility] Start: 08-07-2024 Gender identity Identifies as female gender (finding) [facility] Start: 08-07-2024 Sexual orientation Heterosexual (melly palacios) [facility] Medical Equipment Procedure Code Equipment Code Equipment Original Text Equipment Identifier Dates [id number], [id number] Start: 04-04-2023 End: 08-12-2024 Comment on above: 80 Units one time on ly for 1 dose. To be used to inject progesterone in oil. 1 Each once daily. Goals Date Patient Goal Desired Activity /State Personal health goal Clinical Notes 10-24-2022 to 03-26-2025 Telephone Encounter - Hanna Randall MD - 03/26/2025 8:57 AM EDTTelephone Encounter - Hanna Randall MD - 03/26/2025 8:57 AM EDTPatient InstructionsPatient Instructions Note Date & Type Note Facility 03-26-2025 Telephone encounter Note Would recommend she be seen this week. We will want to discuss delivery options and plan since she is already 40.3 weeks. [facility] 03-26-2025 Miscellaneous Notes Would recommend she be seen this week. We will want to discuss delivery options and plan since she is already 40.3 weeks. FYI: Ob patient is 40w3d called to cancel scheduled ob appointment today with Kyleigh Albaradots d/t having contractions and wanting to monitor them at home ( stated " I don't want to be uncomfortable at doctor's office or sitting in a car while having contractions). Patient denies LOF, no vaginal bleeding. Stated that she lost mucus plug last night. Baby is active. Patient states that her contractions were coming every 9 minutes early this morning and lasting a minute then stopped and are now coming every 20 minutes. Have not received consult documents from anesthesia yet from [facility]; However, faxed info to [facility] anesthesia & L&D. Forrest Walker RN Do we have anesthesia consult back from hospital? Can we send over her recent 03/06/25 consult note from to anesthesia and to L&D. Thank you, Zina Jensen APRN.CNM documented in this encounter [facility] 03-26-2025 Telephone encounter Note FYI: Ob patient is 40w3d called to cancel scheduled ob appointment today with Kyleigh Engel d/t having contractions and wanting to monitor them at home ( stated " I don't want to be uncomfortable at doctor's office or sitting in a car while having contractions). Patient denies LOF, no vaginal bleeding. Stated that she lost mucus plug last night. Baby is active. Patient states that her contractions were coming every 9 minutes early this morning and lasting a minute then stopped and are now coming every 20 minutes. [facility] 03-20-2025 Progress note Formatting of t his note might be different from the original. KJ - S: Dona denies LOF or vaginal bleeding. O: 39w4d, see flow sheet SENSITIVE EXAM: Sensitive exam not performed. A/P: Assessment & Plan 39 weeks gestation of (HCC) Orders: URINE OB DIP B/O Supervision of high risk in third trimester (HCC) Orders: URINE OB DIP B/O Positive GBS test Orders: URINE OB DIP B/O Cavernoma or capillary telangiectasia Cleared by neurology. Patient reports cleared by [facility] anesthesia and will confirm this is on patient's L&D chart. Reviewed labor & FM precautions Bebeto Valencia MD [facility] 03-20-2025 Miscellaneous Notes KJ - S: Dona denies LOF or vaginal bleeding. O: 39w4d, see flow sheet SENSITIVE EXAM: Sensitive exam not performed. A/P: Assessment & Plan 39 weeks gestation of (HCC) Orders: URINE OB DIP B/O Supervision of high risk in third trimester (HCC) Orders: URINE OB DIP B/O Positive GBS test Orders: URINE OB DIP B/O Cavernoma or capillary telangiectasia Cleared by neurology. Patient reports cleared by [facility] anesthesia and will confirm this is on patient's L&D chart. Reviewed labor & FM precautions Bebeto Valencia MD documented in this encounter [facility] 03-20-2025 Instructions Lucinda Nation MA - 03/20/2025 10:10 AM EDT SEQUENTIAL SCREENINGS [facility] offers sequential screenings for women who [...] It will require an appointment with our coffee machine technician. This is not an ultrasound performed [...] the above symptoms, contact our office at [phone] and ask to speak with a nurse. After hours, you can call doctors registry at [phone] OR call [facility] at [phone] and ask to have the doctor responder paged. If you consider this an emergency, dial 9-1-1 or go to your nearest emergency department. NEED HELP? Are you dealing with a violent or abusive relationship? Are you a victim of rape or sexual assult? Call [facility] ([place]) 24 hour Crisis Hotline: 163.210.3426 or 426-043-1527. MANUAL Your Guide to a Healthy manual is now on-line. Visit [email or web address] [place] to download your free copy documented in this encounter [facility] 03-14-2025 Telephone encounter Note Received fax from [facility] that anesthesia consult was completed on 03/06/25 and states Optimized for anesthesia. AMBERLY notified. Copy to L&D and sent to scan into [employer]. Lacey Mazariegos RN [facility] 03-14-2025 Miscellaneous Notes Received fax from [facility] that anesthesia consult was completed on 03/06/25 and states Optimized for anesthesia. AMBERLY notified. Copy to L&D and sent to scan into [employer]. Lacey Mazariegos RN Sent copy of allergy testing to L&D. Left voicemail with [facility] PAT regarding if consult was completed then and to get consult faxed to office if so. Lacey Mazariegos RN Please send note to L&D. Please remove PCN from allergy list. Did we get Anesthesia consult yet? Thank you, Zina Jensen APRN.CNM documented in this encounter [facility] 03-14-2025 Telephone encounter Note Sent copy of allergy testing to L&D. Left voicemail with [facility] PAT regarding if consult was completed then and to get consult faxed to office if so. Lacey Mazariegos RN [facility] 03-14-2025 Telephone encounter Note Please send note to L&D. Please remove PCN from allergy list. Did we get Anesthesia consult yet? Thank you, Zina Jensen APRN.CNM [facility] 03-12-2025 Note HNO ID: [id number] Author: LUCINDA VELAZQUEZ MA Service: ? Author Type: Personal Banker Type: Progress Notes Filed: 03/12/2025 08:40 Note Text: POPULATION HEALTH NAVIGATION OUTREACH Action/FYI 2nd attempt: Called and left message to call back, Reason for Outreach Medicaid OB/Peds Care Gaps due: N/A Patient Contacted: Unable or unnecessary to reach patient: Unable to reach patient Left message Navigation Signature: Lucinda Hussein MA March 12, 2025 8:39 AM [facility] 03-10-2025 Progress note Formatting of t [...] RTO in one week Zina Jensen APRN.CNM [facility] 03-10-2025 Miscellaneous Notes AMBERLY-S: Dona Gutierrez [...] Zina Jensen APRN.CNM documented in this encounter [facility] 03-10-2025 Telephone encounter Note Have not received consult documents from anesthesia yet from [facility]; However, [facility] HOSPITAL anesthesia & L&D. Forrest Walker RN [facility] 03-10-2025 Instructions Zina Jensen APRN.CNM - [...] the above symptoms, contact our office at [phone] and ask to speak with a nurse. After hours, you can call doctors registry at [phone] OR call [facility] at [phone] and ask to have the doctor responder paged. If you consider this an emergency, dial 05-05- or go to your nearest emergency department. NEED HELP? Are you dealing with a violent or abusive relationship? Are you a victim of rape or sexual assult? Call [facility] ([place]) 24 hour Crisis Hotline: 705.514.2586 or 600-456-4924. MANUAL Your Guide to a Healthy manual is now on-line. Visit [email or web address] to download your free copy documented in this encounter [facility] 03-10-2025 Note HNO ID: [id number] Author: LUCINDA VELAZQUEZ MA Service: ? Author Type: Personal Banker Type: Progress Notes Filed: 03/10/2025 14:12 Note Text: POPULATION HEALTH NAVIGATION OUTREACH Action/ attempt: Called and left message to call back to discuss power wood sawyer. MC message sent. Reason for Outreach Medicaid OB/Peds Care Gaps due: N/A Patient Contacted: Unable or unnecessary to reach patient: Unable to reach patient Left message T1 Visions message sent Navigation Signature: Lucinda Hussein MA March 10, 2025 10:14 AM [facility] 03-10-2025 History of Present illness Narrative POPULATION HEALTH NAVIGATION OUTREACH Action/ attempt: Called and left message to call back to discuss power wood sawyer. MC message sent. Reason for Outreach Medicaid OB/Peds Care Gaps due: N/A Patient Contacted: Unable or unnecessary to reach patient: Unable to reach patient Left message T1 Visions message sent Navigation Signature: Lucinda Hussein MA March 10, 2025 10:14 AM documented in this encounter [facility] 03-10-2025 Telephone encounter Note Do we have anesthesia consult back from hospital? Can we send over her recent 03/06/25 consult note from to anesthesia and to L&D. Thank you, Zina Jensen APRN.CNM [facility] 03-10-2025 Note Patient Outreach (NE TNAV) DONA GUTIERREZ ([id number]) 1990 F Date Time Provider Department 03/10/25 LUCINDA VELAZQUEZ During your visit today, we recorded the following information about you: Lucinda Velazquez MA 03/10/2025 2:12 PM Signed POPULATION HEALTH NAVIGATION OUTREACH Action/ 1st attempt: Called and left message to call back to discuss power wood sawyer. message sent. Reason for Outreach Medicaid OB/Peds Care Gaps due: N/A Patient Contacted: Unable or unnecessary to reach patient: Unable to reach patient Left message [facility] sent Navigation Signature: Lucinda Hussein MA March 10, 2025 10:14 AM Lucinda Velazquez MA 03/12/2025 8:40 AM Signed POPULATION HEALTH NAVIGATION OUTREACH Action/I 2nd attempt: Called and left message to [...] Encounter Status:Closed by LUCINDA VELAZQUEZ on 03/10/25 [facility] 03-06-2025 Instructions Livia Denny MD - [...] your preference and the recommendations of your metal neutralizer. If your blood pressure trends upward or labor becomes prolonged and strenuous, your metal neutralizer may recommend one approach or another to ensure your safety. - Pain management during labor is encouraged if needed to help control blood pressure and reduce strain on your body. - You may deliver at [place], as there is no need to transfer [...] delivery. - I will communicate with your metal neutralizer to ensure they are aware of the [...] any additional recommendations. documented in this encounter [facility] 03-06-2025 History of Present illness Narrative [facility] Initial Visit Dona Gutierrez CCF#: [id number] Date of Service: 03/06/2025 Primary Care Provider: Jeremiah Centeno MD, MD The patient was referred by [place] for opinion regarding a left pontine [...] for Supervision of Normal in First Trimester ([facility]) History of Infertility Rh Negative State in Antepartum Period, First Trimester ([facility]) Cavernoma or capillary telangiectasia Ptsd (Post-Traumatic Stress [...] ORAL) Take by mouth once daily. CRANBERRY [id number] ORAL Take by mouth. (Patient not taking: [...] 0.5 01/01/2025 Abs Neut 6.76 01/01/2025 Abs Kimball 0.36 01/01/2025 Abs Eosin 0.19 01/01/2025 Abs [...] clinic after the repeat MRI. Recording using SNAPCARD software for draft documentation of the visit was discussed with the patient/authorized wholesale representative; all questions welcomed and answered. Patient/authorized wholesale representative agreed to proceed SIGNATURE Livia Denny MD Staff, Neuroendovascular Intervention documented in this encounter [facility] 03-06-2025 Note HNO ID: [id number] Author: LIVIA DENNY MD Service: ? Author Type: Physician Type: Progress Notes Filed: 03/09/2025 23:39 Note Text: [facility] Initial Visit Dona Gutierrez [facility]#: [id number] Date of Service: 03/06/2025 Primary Care Provider: Jeremiah Cneteno MD, MD The patient was referred by [facility] [place] for opinion regarding a left pontine capillary [...] for Supervision of Normal in First Trimester ([facility]) History of Infertility Rh Negative State in Antepartum Period, First Trimester ([facility]) Cavernoma or capillary telangiectasia Ptsd (Post-Traumatic Stress [...] ORAL) Take by mouth once daily. CRANBERRY [id number] ORAL Take by mouth. (Patient not taking: [...] sensory modalities ( (more content not included)... [facility] 03-05-2025 Note HNO ID: [id number] Author: VALERIO LEON MD Service: ? Author Type: Physician Type: Progress Notes Filed: 03/05/2025 16:57 Note Text: [facility] 03-05-2025 History of Present illness Narrative documented in this encounter [facility] 03-05-2025 Progress note Formatting of t [...] of high risk in third trimester (HCC) kickcounts Orders: URINE OB DIP B/O 37 weeks gestation of (HCC) Orders: URINE OB DIP B/O Positive GBS test allergy testing, if not done ancef Orders: URINE OB DIP B/O Adverse effect of penicillamine, initial encounter agrees to allergy testing Orders: CONSULT TO ALLERGY/IMMUNOLOGY; Future neuro and allergy and anesthesia consults to be done sneha. Valerio Leon M.D. [facility] 03-05-2025 Miscellaneous Notes RR- VB No. LOF No. CTXS No. Movement: present. Other c/o: No. Medication list reviewed. SENSITIVE EXAM: Sensitive exam not performed. Physical Exam See Flow Sheet Abd: soft, nontender, gravid Ext: edema: no A/P 37w3d Estimated Date of Delivery: 03/23/25 Assessment & Plan Supervision of high risk in third trimester (HCC) kickcounts Orders: URINE OB DIP B/O 37 weeks gestation of (HCC) Orders: URINE OB DIP B/O Positive GBS test allergy testing, if not done ancef Orders: URINE OB DIP B/O Adverse effect of penicillamine, initial encounter agrees to allergy testing Orders: CONSULT TO ALLERGY/IMMUNOLOGY; Future neuro and allergy and anesthesia consults to be done sneha. Valerio Leon M.D. documented in this encounter [facility] 03-05-2025 Instructions Mariaelena Rubio MA - 03/05/2025 3:27 PM EDT SEQUENTIAL SCREENINGS The [facility] offers sequential screenings for women who [...] It will require an appointment with our coffee machine technician. This is not an ultrasound performed [...] the above symptoms, contact our office at [phone] and ask to speak with a nurse. After hours, you can call doctors registry at [phone] OR call [facility] at [phone] and ask to have the doctor responder paged. If you consider this an emergency, dial 9-1-6 or go to your nearest emergency department. NEED HELP? Are you dealing with a violent or abusive relationship? Are you a victim of rape or sexual assult? Call [facility] ([place]) 24 hour Crisis Hotline: 439.378.1706 or 180-937-6738. MANUAL Your Guide to a Healthy manual is now on-line. Visit [email or web address] to download your free copy documented in this encounter [facility] 03-04-2025 Telephone encounter Note Received outside medical records from [place] and scanned into patient chart. [facility] 03-04-2025 Miscellaneous Notes Received outside medical records from [place] and scanned into patient chart. Images from the original note were not included. Spoke with patient & she confirmed 2020 Brain Imaging from [facility] is most recent. Requested images from [employer]. Patient states she may have imaging on a CD. If she finds, she will also bring to appointment. OSH imaging/records received from [facility]: March 03, 2025 -Last 5 Years Records available in Care Everywhere -Last 5 Years Imaging Pt [facility] form [facility]. Nisha Awan Has added pt to Dr Denny schedule, but need imaging. None located in [facility]. 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 Also she is 37 weeks . Am I allowed to schedule her with Dr. Denny this ? documented in this encounter [facility] 03-03-2025 Telephone encounter Note Images from the original note were not included. Spoke with patient & she confirmed 2020 Brain Imaging from [facility] is most recent. Requested images from [employer]. Patient states she may have imaging on a CD. If she finds, she will also bring to appointment. OSH imaging/records received from [facility]: March 03, 2025 -Last 5 Years Records available in Care Everywhere -Last 5 Years Imaging [facility] 03-03-2025 Telephone encounter Note Pt [facility] urgent [facility]. Nisha Awan Has added pt to Dr Denny schedule, but need imaging. None located in [facility]. 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 Also she is 37 weeks . Am I allowed to schedule her with Dr. Denny this ? [facility] 02-24-2025 Progress note Formatting of t [...] call - Weekly visits Peter Teresa DO [facility] 02-24-2025 Miscellaneous Notes SW- Pt doing [...] Peter Teresa DO documented in this encounter [facility] 02-24-2025 Instructions Lucinda Nation MA - 02/24/2025 4:08 PM EDT SEQUENTIAL SCREENINGS The [facility] offers sequential screenings for women who [...] It will require an appointment with our coffee machine technician. This is not an ultrasound performed [...] the above symptoms, contact our office at [phone] and ask to speak with a nurse. After hours, you can call doctors registry at [phone] OR call [facility] at [phone] and ask to have the doctor responder paged. If you consider this an emergency, dial 6-2-4 or go to your nearest emergency department. NEED HELP? Are you dealing with a violent or abusive relationship? Are you a victim of rape or sexual assult? Call [facility] ([place]) 24 hour Crisis Hotline: 787.209.6188 or 454-819-7111. MANUAL Your Guide to a Healthy manual is now on-line. Visit [email or web address] to download your free copy documented in this encounter [facility] 02-24-2025 Telephone encounter Note Please keep follow up with patient and neurology. Thank you, Zina Jensen APRN.CNM [facility] 02-24-2025 Miscellaneous Notes Please keep follow up with patient and neurology. Thank you, Zina Jensen APRN.CNM FYI: Referral to neurology was denied by patient's insurance. Per insurance: Care has been deemed clinically inappropriate: Reason: patient had a MRI and neurology consultation in 2020 and does not need further imaging or f/u unless patient develops new neurological symptoms. documented in this encounter [facility] 02-14-2025 Telephone encounter Note FYI: Referral to neurology was denied by patient's insurance. Per insurance: Care has been deemed clinically inappropriate: Reason: patient had a MRI and neurology consultation in 2020 and does not need further imaging or f/u unless patient develops new neurological symptoms. [facility] 02-12-2025 History of Present illness Narrative Ms. Zina Jensen ANICETO XIE NAME: Dona Gutierrez CLINIC Number.: [id number] Date of : 1990 Date of Visit: February 12, 2025 Dear Ms. Zina Jensen ANICETO RODRIGUEZ : Ms. Dona Gutierrez was seen for [...] were explained. She plans to deliver at [facility]. Based on todays exam we felt she [...] which included preparing to see the patient, [id number] patient care, completing clinical documentation, counseling and educating the patient/family/caregiver, communicating with other HCPs (not separately reported), and communicating results to the patient/family/caregiver. Sincerely, Misbah Chen MD documented in this encounter [facility] 02-12-2025 Note HNO ID: [id number] Author: MISBAH CHEN MD Service: ? Author Type: Physician Type: Progress Notes Filed: 02/12/2025 12:39 Note Text: Ms. Zina Jensen ANICETO [facility] NAME: Dona Gutierrez CLINIC Number.: [id number] Date of : 1990 Date of Visit: February 12, 2025 Dear Ms. Zina Jensen APRN [facility] : Ms. Dona Gutierrez was seen for [...] were explained. She plans to deliver at [facility]. Based on todays exam we felt she [...] which included preparing to see the patient, [id number] patient care, completing clinical documentation, counseling and educating the patient/family/caregiver, communicating with other HCPs (not separately reported), and communicating results to the patient/family/caregiver. Sincerely, Misbah Chen MD [facility] 02-11-2025 Telephone encounter Note [place] request for services form signed by CP and faxed along with neuro consult order and 01/01/25 visit records. Lacey Mazariegos RN [facility] 02-11-2025 Miscellaneous Notes [facility] signed by CP and faxed along with neuro consult order and 01/01/25 visit records. Lacey Mazariegos RN See 02/06/25 phone note regarding the form too. Lacey Mazariegos RN documented in this encounter [facility] 02-10-2025 Instructions Mariaelena Rubio MA - 02/10/2025 1:52 PM EDT SEQUENTIAL SCREENINGS The [facility] offers sequential screenings for women who [...] It will require an appointment with our coffee machine technician. This is not an ultrasound performed [...] the above symptoms, contact our office at [phone] and ask to speak with a nurse. After hours, you can call doctors registry at [phone] OR call [facility] at [phone] and ask to have the doctor responder paged. If you consider this an emergency, dial 5-6-9 or go to your nearest emergency department. NEED HELP? Are you dealing with a violent or abusive relationship? Are you a victim of rape or sexual assult? Call [facility] 24 hour Crisis Hotline: 974.297.8061 or 441-647-5872. MANUAL Your Guide to a Healthy manual is now on-line. Visit [email or web address] to download your free copy documented in this encounter [facility] 02-10-2025 Progress note Formatting of t [...] nontender ASSESSMENT/PLAN: 1. 34 weeks gestation of ([facility]) - ICD9: V22.2, ICD10: Z3A.34 (primary diagnosis) 2. Encounter for supervision of normal first in third trimester 3. ERICK (generalized anxiety disorder) 4. History of bowel resection 5. Cavernoma or capillary telangiectasia - Has completed all childbirth education classes - Desires physiological onset of labor/ unmedicated - Repeat echo this week at [facility] - Having issues with [facility] approval for neurology consult- still in process - PTL precautions and kick counts reviewed - RTO 2 weeks for GRACE with GBS Vicky Engel APRN.CNM [facility] 02-10-2025 Miscellaneous Notes S: Dona Gutierrez is a 34 year old female who presents at 34 weeks gestation for a routine visit. Positive movements. Denies headache, visual changes, chest pain, shortness of breath, vaginal bleeding, leakage of fluid, or dysuria. Feeling well, no complaints. O: See flow sheet Gen: No apparent distress Abd: Gravid, nontender ASSESSMENT/PLAN: 1. 34 weeks gestation of ([facility]) - ICD9: V22.2, ICD10: Z3A.34 (primary diagnosis) 2. Encounter for supervision of normal first in third trimester 3. ERICK (generalized anxiety disorder) 4. History of bowel resection 5. Cavernoma or capillary telangiectasia - Has completed all childbirth education classes - Desires physiological onset of labor/ unmedicated - Repeat echo this week at [facility] - Having issues with [facility] approval for neurology consult- still in process - PTL precautions and kick counts reviewed - RTO 2 weeks for GRACE with GBS Vicky Engel APRN.CNM documented in this encounter [facility] 02-07-2025 Telephone encounter Note See 02/06/25 phone note regarding the form too. Lacey Mazariegos RN [facility] 02-06-2025 Telephone encounter Note Patient referred for neurology consult by Zina Jensen. [facility] calling to notify office that they will be faxing over forms that need to be completed prior to scheduling patient. Form received and given to Zina Jensen to sign. Will need faxed back once signed. Kristen Patterson RN [facility] 02-06-2025 Miscellaneous Notes Patient referred for neurology consult by Zina Jensen. [facility] calling to notify office that they will be faxing over forms that need to be completed prior to scheduling patient. Form received and given to Zina Jensen to sign. Will need faxed back once signed. Kristen Patterson RN documented in this encounter [facility] 02-05-2025 Telephone encounter Note Spouse's FMLA paperwork completed and faxed back to employer. Patient notified. Valente Cotton MA [facility] 02-05-2025 Miscellaneous Notes Spouse's FMLA paperwork completed and faxed back to employer. Patient notified. Valente Cotton MA documented in this encounter [facility] 01-31-2025 Progress note Formatting of t [...] L&D for anesthesia and will scan to [facility] 32 weeks gestation of ([facility]) RTO 2 weeks Kick counts reviewed Message sent to Cardiac team/ echo Dr. Lara- repeat echo not covered- pt wants to know if it is necessary or not. And can she still delivery at [facility]. ECHO was normal. Hanna Fonseca MD [facility] 01-31-2025 Miscellaneous Notes DM-Pt doing well. [...] L&D for anesthesia and will scan to [facility] 32 weeks gestation of ([facility]) RTO 2 weeks Kick counts reviewed Message sent to Cardiac team/ echo Dr. Lara- repeat echo not covered- pt wants to know if it is necessary or not. And can she still delivery at [facility]. ECHO was normal. Hanna Fonseca MD documented in this encounter [facility] 01-23-2025 Telephone encounter Note Lab client services called stating IGG test already completed, but that IGM did need entered. Please file as needs added by today or cannot be completed. Please address in AMBERLY absence. Forrest Walker RN [facility] 01-23-2025 Miscellaneous Notes Lab client services [...] Zina Jensen APRN.CNM documented in this encounter [facility] 01-22-2025 Telephone encounter Note Spoke with lab client services and yes, new order will show IgM and IgG. Kristen Patterson RN [facility] 01-22-2025 Telephone encounter Note Order signed. 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 Thank you, Zina Jensen APRN.CNM [facility] 01-20-2025 Progress note Formatting of t his note might be different from the original. Anatomy ultrasound reviewed. No abnormalities identified. Follow up as clinically indicated. Please place copy in ob chart. Valerio Leon MD [facility] 01-20-2025 Miscellaneous Notes Anatomy ultrasound reviewed. No abnormalities identified. Follow up as clinically indicated. Please place copy in ob chart. Valerio Leon MD documented in this encounter [facility] 01-17-2025 Note Indication Evaluation of growth [...] 1 oz EFW by: Hadlock (HC-AC-FL) Extended Beam Builder 5.5 mm Extremities / Bony Struc FL [...] By: Maritza Mckeon M.D. [facility] 01-17-2025 Instructions Zina Jensen APRN.[facility] - 01/17/2025 3:37 PM EDT Images from [...] or burning! Figure 1 1 Perineal Massage Radhaid Grade Level: 7.2 Approved September 2015. This [...] the above symptoms, contact our office at [phone] and ask to speak with a nurse. After hours, you can call doctors registry at [phone] OR call [facility] at [phone] and ask to have the doctor responder paged. If you consider this an emergency, dial 8-1-3 or go to your nearest emergency department. NEED HELP? Are you dealing with a violent or abusive relationship? Are you a victim of rape or sexual assult? Call [facility] ([place]) 24 hour Crisis Hotline: 289.556.6122 or 833-629-6501. MANUAL Your Guide to a Healthy manual is now on-line. Visit [email or web address] to download your free copy documented in this encounter [facility] 01-17-2025 Miscellaneous Notes AMBERLY-S: Dona Gutierrez [...] or capillary telangiectasia -Seen in 2019 at [facility] but no follow up since. -Records requested but additional form needed,awaiting response -Neurology consult 01/29/25 -Discussed possible anesthesia consult. PTL precautions RTO in 2 weeks Zina Jensen APRN.CNM documented in this encounter [facility] 01-17-2025 Progress note Formatting of t [...] or capillary telangiectasia -Seen in 2019 at [facility] but no follow up since. -Records requested but additional form needed,awaiting response -Neurology consult 01/29/25 -Discussed possible anesthesia consult. PTL precautions RTO in 2 weeks Zina Jensen APRN.CNM [facility] 01-16-2025 Telephone encounter Note Dona called the office to schedule echo follow up with Dr. Lara. Holding echo slot with Dr. Lara in [place] on 01/21 at 11am. Message sent to scheduling. [facility] 01-16-2025 Miscellaneous Notes Dona called the office to schedule echo follow up with Dr. Lara. Holding echo slot with Dr. Lara in [place] on 01/21 at 11am. Message sent to scheduling. documented in this encounter [facility] 01-03-2025 Telephone encounter Note In order to request pt's medical records from [facility], they need another form filled out in addition to the [facility] Medical Record Release form that the pt filled out. Letter (explaining this to the pt) typed up and the required form from [facility] and the [facility] Medical Record Release form mailed to pt per Shayy Gomez. [facility] 01-03-2025 Miscellaneous Notes In order to request pt's medical records from [facility], they need another form filled out in addition to the [facility] Medical Record Release form that the pt filled out. Letter (explaining this to the pt) typed up and the required form from [facility] and the [facility] Medical Record Release form mailed to pt per Shayy Gomez. documented in this encounter [facility] 01-01-2025 Progress note Formatting of t [...] or capillary telangiectasia -Seen in 2019 at [facility] but no follow up since. Will refer to neurology and records requested. -Discussed possible anesthesia consult. PTL precautions reviewed and when to call RTO in 2 week Zina Jensen APRN.CNM [facility] 01-01-2025 Miscellaneous Notes AMBERLY-S: Dona Gutierrez [...] or capillary telangiectasia -Seen in 2019 at [facility] but no follow up since. Will refer to neurology and records requested. -Discussed possible anesthesia consult. PTL precautions reviewed and when to call RTO in 2 week Zina Jensen APRN.CNM documented in this encounter [facility] 01-01-2025 Note HNO ID: [id number] Author: ZINA JENSEN APRN.CNM Service: ? Author Type: Electromedical Equipment Technician Type: Progress Notes Filed: 01/01/2025 13:52 Note Text: [facility] 01-01-2025 History of Present illness Narrative documented in this encounter [facility] 01-01-2025 Instructions Zina Jensen APRN.CNM - [...] in Volume 50, Issue 1, Sep/Oct 2004 Preparing for labor: Eat dates to [...] an easy pie crust in the food truck caterer. Add soaked dates to homemade nut butter for a sweet treat. Add dates to kris homemade salad dressing. Add dates during easily with these yummy (paleo friendly) bars made from dates. What Is Red Raspberry [place] Tea? Red raspberry leaf tea comes from [...] , and too. How Much Red Raspberry [place] Tea to Drink? With your doctor or office assistant s approval, start with 1 cup of [...] because of uterine cramping. Is Red Raspberry [place] Tea the Same as Raspberry [place] Tea? How About Plain Old Raspberry Tea? Sometimes. You really need to look at the ingredients to be sure. Note that there is no difference between red raspberry leaf and raspberry leaf. [employer] Op or Traditional Bubble Gum Interactives Raspberry [place] Tea are two good brands. The red [...] of RRLT outlined in this article. The [employer] Circuit www.[email or web address].com I named this 'circuit' after my friend [...] sideways, 2 at a time, (have a chipper feeder downstairs of you!), take a walk outside [...] the pelvis. Lesly Adams: Circuit Creator - www.MyToonsundbirthcollective.Helpr Karla Cheney CD, BDT (GOPAL), LCCE, FACCE: Supporting Content - www.[email or web address] Jeremiah Smiley: Photography - www.evertnphoto.[email or web address] Kaykay Oumar CD/CDT (KELSEY): Print and Twist Tester - www.Saraf Foods.Duplia Masterminds The delicious www.Subarctic Limited.Helpr SIGNS AND SYMPTOMS OF LABOR 1. Contractions every 10 minutes or more often 2. Clear, pink, or brownish fluid (water) leaking from vagina 3. Feeling that baby is pushing down, pressure 4. Low, dull backache 5. Cramps that feel like a period 6. Cramps with or without diarrhea If you notice any of the above symptoms, contact our office at [phone] and ask to speak with a nurse. After hours, you can call doctors registry at [phone] OR call [facility] at [phone] and ask to have the doctor responder paged. If you consider this an emergency, dial 9-1-2 or go to your nearest emergency department. NEED HELP? Are you dealing with a violent or abusive relationship? Are you a victim of rape or sexual assult? Call [facility] ([place]) 24 hour Crisis Hotline: 418.195.9567 or 841-679-0572. MANUAL Your Guide to a Healthy manual is now on-line. Visit [email or web address] [place] to download your free copy documented in this encounter [facility] 12-04-2024 Progress note Formatting of t [...] supervision of normal first in second trimester ([facility]) 2. History of posttraumatic stress [...] or sooner if needed Vicky Engel APRN.CNM [facility] Work Phone: 12-04-2024 Miscellaneous Notes S: [...] supervision of normal first in second trimester ([facility]) 2. History of posttraumatic stress [...] Vicky Engel APRN.CNM documented in this encounter [facility] 12-04-2024 Instructions Valente Cotton MA - 12/04/2024 1:09 PM EDT SEQUENTIAL SCREENINGS The [facility] offers sequential screenings for women who [...] It will require an appointment with our coffee machine technician. This is not an ultrasound performed [...] the above symptoms, contact our office at [phone] and ask to speak with a nurse. After hours, you can call doctors registry at [phone] OR call [facility] at [phone] and ask to have the doctor responder paged. If you consider this an emergency, dial 9-1- or go to your nearest emergency department. NEED HELP? Are you dealing with a violent or abusive relationship? Are you a victim of rape or sexual assult? Call [facility] ([facility] 24 hour Crisis Hotline: 349.687.2569 or 092-134-6953. MANUAL Your Guide to a Healthy manual is now on-line. Visit [email or web address] [place] to download your free copy documented in this encounter [facility] 11-19-2024 Note HNO ID: [id number] Author: JOSSY LARA MD Service: ? Author Type: Physician Type: Progress Notes Filed: 11/19/2024 11:16 Note Text: Ms. Zina Jensen [facility] NAME: Dona Gutierrez CLINIC Number.: [id number] Date of : 1990 Date of Visit: [...] 30-34 weeks. Delivery is planned now at [facility] though she says she plans to [...] which included preparing to see the patient, exsp-kj-qqwf patient care, completing clinical documentation, obtaining and/or reviewing separately obtained history, performing a medically appropriate examination, counseling and educating the patient/family/caregiver, ordering medications, tests, or procedures, communicating with other HCPs (not separately reported), independently interpreting results (not separately reported), and communicating results to the patient/family/caregiver. Sincerely, Dr. Jossy Lara [facility] 11-19-2024 History of Present illness Narrative Ms. Zina Jensen [facility] NAME: Dona Gutierrez CLINIC Number.: [id number] Date of : 1990 Date of Visit: [...] 30-34 weeks. Delivery is planned now at [facility] though she says she plans to [...] which included preparing to see the patient, cyop-mj-rjlz patient care, completing clinical documentation, obtaining and/or reviewing separately obtained history, performing a medically appropriate examination, counseling and educating the patient/family/caregiver, ordering medications, tests, or procedures, communicating with other HCPs (not separately reported), independently interpreting results (not separately reported), and communicating results to the patient/family/caregiver. Sincerely, Dr. Jossy Lara documented in this encounter [facility] 11-11-2024 Miscellaneous Notes Anatomy ultrasound reviewed. No abnormalities identified. Follow up as clinically indicated. Please place copy in ob chart. Valerio Leon MD documented in this encounter [facility] 11-11-2024 Progress note Formatting of t his note might be different from the original. Anatomy ultrasound reviewed. No abnormalities identified. Follow up as clinically indicated. Please place copy in ob chart. Valerio Leon MD [facility] 11-08-2024 Progress note Formatting of t [...] RTO in 4 week Zina Jensen APRN.CNM [facility] 11-08-2024 Miscellaneous Notes AMBERLY-S: Dona Gutierrez is a 34 year old female who presents at 20w5d with EDD7, by Last Menstrual Period for a routine [...] Zina Jensen APRN.CNM documented in this encounter [facility] 11-08-2024 Instructions Valente Cotton MA - 11/08/2024 2:18 PM EST SEQUENTIAL SCREENINGS The [facility] offers sequential screenings for women who [...] It will require an appointment with our coffee machine technician. This is not an ultrasound performed [...] the above symptoms, contact our office at [phone] and ask to speak with a nurse. After hours, you can call doctors registry at [phone] OR call [facility] at [phone] and ask to have the doctor responder paged. If you consider this an emergency, dial 9-9-4 or go to your nearest emergency department. NEED HELP? Are you dealing with a violent or abusive relationship? Are you a victim of rape or sexual assult? Call [facility] ([place]) 24 hour Crisis Hotline: 423.224.7395 or 000-909-1002. MANUAL Your Guide to a Healthy manual is now on-line. Visit [email or web address]/[email or web address] [place] to download your free copy documented in this encounter [facility] 10-15-2024 Progress note Formatting of t [...] RTO in 4 weeks Zina Jensen APRN.CNM [facility] 10-15-2024 Miscellaneous Notes AMBERLY-S: Dona Gutierrez [...] Zina Jensen APRN.CNM documented in this encounter [facility] 10-15-2024 Instructions Valente Cotton MA - 10/15/2024 10:03 AM EST SEQUENTIAL SCREENINGS The [facility] offers sequential screenings for women who [...] It will require an appointment with our coffee machine technician. This is not an ultrasound performed [...] the above symptoms, contact our office at [phone] and ask to speak with a nurse. After hours, you can call doctors registry at [phone] OR call [facility] at [phone] and ask to have the doctor responder paged. If you consider this an emergency, dial 1-1-5 or go to your nearest emergency department. NEED HELP? Are you dealing with a violent or abusive relationship? Are you a victim of rape or sexual assult? Call [facility] ([place]) 24 hour Crisis Hotline: 558.782.7668 or 088-822-6105. MANUAL Your Guide to a Healthy manual is now on-line. Visit [email or web address]/[email or web address] [place] to download your free copy documented in this encounter [facility] 09-13-2024 Progress note Formatting of t [...] RTO in 4 weeks Zina Jensen APRN.CNM [facility] 09-13-2024 Miscellaneous Notes AMBERLY-S: Dona Gutierrez [...] Zina Jensen APRN.CNM documented in this encounter [facility] 09-13-2024 Instructions Valente Cotton MA - 09/13/2024 3:26 PM EST SEQUENTIAL SCREENINGS The [facility] offers sequential screenings for women who [...] It will require an appointment with our coffee machine technician. This is not an ultrasound performed [...] the above symptoms, contact our office at [phone] and ask to speak with a nurse. After hours, you can call doctors registry at [phone] OR call [facility] at [phone] and ask to have the doctor responder paged. If you consider this an emergency, dial 9-1-1 or go to your nearest emergency department. NEED HELP? Are you dealing with a violent or abusive relationship? Are you a victim of rape or sexual assult? Call [facility] ([place]) 24 hour Crisis Hotline: 807.959.5058 or 338-425-3750. MANUAL Your Guide to a Healthy manual is now on-line. Visit [email or web address]/[email or web address] [place] to download your free copy documented in this encounter [facility] 09-11-2024 Progress note Formatting of t [...] call RTO as scheduled Zina Jensen APRN.CNM [facility] 09-11-2024 Miscellaneous Notes AMBERLY-S: Dona Gutierrez [...] Zina Jensen APRN.CNM documented in this encounter [facility] 09-03-2024 Instructions Sofie Danielson LPN - 09/03/2024 2:15 PM EST SEQUENTIAL SCREENINGS The [facility] offers sequential screenings for women who [...] It will require an appointment with our coffee machine technician. This is not an ultrasound performed [...] the above symptoms, contact our office at [phone] and ask to speak with a nurse. After hours, you can call doctors registry at [phone] OR call [facility] at [phone] and ask to have the doctor responder paged. If you consider this an emergency, dial or go to your nearest emergency department. NEED HELP? Are you dealing with a violent or abusive relationship? Are you a victim of rape or sexual assult? Call [facility] ([place]) 24 hour Crisis Hotline: 824.858.4103 or 954-359-5220. MANUAL Your Guide to a Healthy manual is now on-line. Visit [email or web address] rosa [email or web address] to download your free copy documented in this encounter [facility] 09-02-2024 Telephone encounter Note Patient called and appointment scheduled. Kristen Patterson RN [facility] 09-02-2024 Miscellaneous Notes Patient called and [...] patient seen in office this afternoon? Lydia Chen, BRIANNA documented in this encounter [facility] 09-02-2024 Telephone encounter Note Patient does not need seen in office today at this time. There are no openings. Please assist with getting patient into office this week. Vicky Engel APRN.CNM [facility] Work Phone: 09-02-2024 Telephone encounter Note 11w1d Patient called with several complaints. Urine has been cloudy for the last couple of days. Denies dysuria or frequency. Hx of frequent UTI. Also, having brown spotting while on pelvic rest. Doppler at home the FHT was 190 which concerned her. Would you like patient seen in office this afternoon? Lydia Chen, BRIANNA [facility] 08-20-2024 Note Addended by: ZINA JENSEN on: 08/20/2024 09:50 AM Modules accepted: Orders [facility] 08-20-2024 Miscellaneous Notes Addended by: ZINA [...] Zina Jensen APRN.CNM documented in this encounter [facility] 08-20-2024 Progress note Formatting of t [...] 3wk for NT US. Zina Jensen APRN.CNM [facility] 08-20-2024 Instructions Valente Cotton MA - 08/20/2024 9:19 AM EST SEQUENTIAL SCREENINGS The [facility] offers sequential screenings for women who [...] It will require an appointment with our coffee machine technician. This is not an ultrasound performed [...] the above symptoms, contact our office at [phone] and ask to speak with a nurse. After hours, you can call doctors registry at [phone] OR call [facility] at [phone] and ask to have the doctor responder paged. If you consider this an emergency, dial or go to your nearest emergency department. NEED HELP? Are you dealing with a violent or abusive relationship? Are you a victim of rape or sexual assult? Call [facility] ([place]) 24 hour Crisis Hotline: 957.124.6201 or 063-891-9148. MANUAL Your Guide to a Healthy manual is now on-line. Visit [email or web address] rosa mariaTitiandressa to download your free copy documented in this encounter [facility] 08-12-2024 Progress note Formatting of t his note might be different from the original. [place] today, see progress note. Uncertain about NIPT. Carrier screening previously, will bring results. Follow up in one week due to tissue present at cervical os. Zina Jensen APRN.CNM [facility] 08-12-2024 Miscellaneous Notes [place] today, see progress note. Uncertain about NIPT. Carrier screening previously, will bring results. Follow up in one week due to tissue present at cervical os. Zina Jensen APRN.CNM documented in this encounter [facility] 08-12-2024 Note HNO ID: [id number] Author: VALENTE COTTON MA Service: ? Author Type: Cost Engineer Type: Progress Notes Filed: 08/12/2024 16:13 Note Text: OB point of care ultrasound was performed. See imaging tab for details. Valente Cotton MA [facility] 08-12-2024 History of Present illness Narrative [...] the following (please check all that apply)? 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 PTSD (post-traumatic stress disorder) Traumatic brain injury [...] discussed with the Patient or Patient's Authorized Brick Paver. As applicable, any other physician, advance practice provider, medical student, or other health professional student that will be observing or involved in the sensitive examination for educational or training purposes was discussed with the Patient or Authorized Brick Paver. The Patient or Authorized Brick Paver has agreed to proceed with the sensitive [...] Your guide to a health and the [place]. Discussed hemoglobin electrophoresis. Patient: Accepts Reviewed midwifery and food server services that are available. 2) Screening: Hemoglobin [...] Follow up in 4 weeks or sooner prn. Zina Jensen APRN.CNM documented in this encounter [facility] 08-07-2024 Note HNO ID: [id number] Author: ZINA JENSEN APRN.CNM Service: ? Author Type: Electromedical Equipment Technician Type: Progress Notes Filed: 08/12/2024 16:13 Note [...] the following (please check all that apply)? 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 PTSD (post-traumatic stress disorder) Traumatic brain injury [...] intramuscularly once da (more content not included)... [facility] 08-07-2024 Instructions Valente Cotton MA - 08/07/2024 3:19 PM EST Please select the following link to access the [facility] Your Guide to a Healthy . [email or web address] Please select the following link to access the [facility] Your Guide to a Healthy . [email or web address] documented in this encounter [facility] 07-31-2024 Telephone encounter Note Patient notified and scheduled. Lacey Mazariegos RN [facility] 07-31-2024 Miscellaneous Notes Patient notified and [...] Zina Jensen APRN.CNM documented in this encounter [facility] 07-31-2024 Telephone encounter Note Can you [...] on 08/13. Thank you, Zina Jensen APRN.CNM [facility] Work Phone: 04-10-2024 Telephone encounter Note Message sent to patient. Instructed patient to contact medical records to have her records sent to another healthcare provider. Jennifer Puri RN April 10, 2024 3:20 PM [facility] 04-10-2024 Miscellaneous Notes Message sent to patient. Instructed patient to contact medical records to have her records sent to another healthcare provider. 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 Will do office hysteroscopy. I spent a total of 40 minutes on the date of the service which included preparing to see the patient, dsrw-ei-kgfx patient care, completing clinical documentation, counseling and educating the patient/family/caregiver, and ordering medications, tests, or procedures. 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 Will do office hysteroscopy. I spent a total of 40 minutes on the date of the service which included preparing to see the patient, teoq-jp-nyvr patient care, completing clinical documentation, counseling and [...] Victor MD 04/02/2024 documented in this encounter [facility] 04-02-2024 Note HNO ID: [id number] Author: BRAD RODRIGUEZ MD Service: ? Author Type: Physician Type: Progress Notes Filed: 04/09/2024 16:14 Note Text: Christal regalado Dona Gutierrez is a 33 year old [...] which included preparing to see the patient, boxn-wd-euaj patient care, completing clinical documentation, counseling and educating the patient/family/caregiver, and ordering medications, tests, or procedures. MD HAYDEE Barnhart Frozen Embryo Transfer Treatment Plan: Number of embryos: one Uterine cavity testing: office hysteroscopy Protocol: Natural If programmed, type of estradiol: N/A Type of progesterone: progesterone supp 200 mg bid OK for OCPs to delay cycle start if needed: Yes Brad Rodriguez. 04/02/2024 [facility] 04-02-2024 History of Present illness Narrative Christal Gutierrez is a 33 year old G [...] which included preparing to see the patient, ffbo-oz-oadx patient care, completing clinical documentation, counseling and [...] Brad Rodriguez. 04/02/2024 documented in this encounter [facility] 09-18-2023 History of Present illness Narrative Images from the original note were not included. REPRODUCTIVE ENDOCRINOLOGY AND INFERTILITY RETURN PATIENT CLINIC NOTE No call, no show for scheduled visit today. Lalit Pritchard MD October 01, 2023 9:55 PM documented in this encounter [facility] 07-21-[address] Pritchard, patient needs to follow up before making plans for FET #2. Mychart sent to patient. Paige Madrigal RN July 21, 2023 3:00 PM documented in this encounter [facility] 07-17-2023 Miscellaneous Notes Return call. Wants to set up FET #2 in September or October. May call financial to self pay for FET if she decides not to keep current insurance. Will message Dr. Pritchard about another FET cycle and confirm plan. Paige Madrigal RN July 17, 2023 4:07 PM On day 5 of current cycle. documented in this encounter [facility] 06-29-2023 Procedure note WHI HAYDEE TRANSFER PROCEDURE NOTE Date: 06/22/2023 Primary Proceduralist: Lalit Pritchard MD Pediatric Hospitalist(s): Not applicable Informed Consent: Consents and Labels Consent Signed: Informed Consent obtained and on the chart Labels Verified With Patient: Yes Indications: Dona Gutierrez, is a 33 year old female here today for Embryo Transfer. Gentry Protocol: UNIVERSAL PROTOCOL / SAFETY CHECKLIST Procedure [...] TIME: 6:03 PM documented in this encounter [facility] 06-22-2023 History of Present illness Narrative Embryo Transfer procedure performed. Detailed notes can be found in the paper chart in the [facility] - PERSONNEL ARBITRATOR Office. Patricia Gregory documented in this encounter [facility] 06-22-2023 Instructions Vicky Barnes RN - 06/22/2023 1:38 PM EDT POST EMBRYO TRANSFER INSTRUCTIONS You will need to have your blood drawn for Quantitative HCG on 07/06/2023 at [place]. You can expect to be called the afternoon of your blood draw with your test results. If for any reason that date or location is changed, please call [phone] to inform us. Continue your current medications [...] If you have any questions, please call [phone]. documented in this encounter [facility] 06-21-2023 Miscellaneous Notes Your frozen embryo [...] N Pablo Smiley documented in this encounter [facility] 05-31-2023 History of Present illness Narrative [...] that the results of genetic testing may tire changer time as the field of genetics [...] consented to pursue germline testing with the [employer] Expanded Panel with RNA analysis (core panel BRCA1/2, ordering provider: Elin Paul MD). Sample for testing will be obtained by blood draw today. Dona elected insurance billing. We will contact Dona via preference selected below when results are available. We will make specific follow-up and management recommendations based on the test result. Results Delivery Preference [x] Uploaded directly to [employer] [] Telephone call followed by upload to [employer] Counseling time spent: 35 minutes Shelby Perry MS, [facility] Licensed Genetic Counselor Reference Librarian, Internal Medicine [facility] E-mail: [email or web address] documented in this encounter [facility] 05-16-2023 Miscellaneous Notes Called patient to number [...] with next steps documented in this encounter [facility] 05-15-2023 Miscellaneous Notes Called and spoke with pt. Advised her PA for FET was submitted this morning. Will call with a determination. Pt asked when meds can be ordered. Advised as soon as the PT for the FET comes back. Pt would like to know if there is any update on her FET referral documented in this encounter [facility] 05-11-2023 Miscellaneous Notes Let patient know that have not yet destroyed and that I will make a note that we will not destroy the abnormal. Patricia Gregory Ivf Patient talked to [employer] and has an update on the embryos that she has stored here she does not want to destroy any embryos Does have questions regarding the embryos She would really like a call back due to the information that she was just given and the time frame documented in this encounter [facility] 05-10-2023 Miscellaneous Notes Called patient to [...] on pgt testing documented in this encounter [facility] 05-04-2023 History of Present illness Narrative IVF freeze all cycle. PGT. Treva Zacarias May 04, 2023 1:41 PM documented in this encounter [facility] 05-02-2023 History of Present illness Narrative Dona Gutierrez is a 33 year old here for SIS. Referred by: Racheal Bhatt [id number] [id number] Chief Complaint: Uterine cavity evaluation Endometrial Biopsy: [...] See ViewPoint for procedure results. Racheal Bhatt APRN.CABLEWAY OPERATOR documented in this encounter [facility] 04-27-2023 Miscellaneous Notes Pt has SIS scheduled. Thaw plan sent to my chart. Pt will upload thaw plan. Will need to order meds once checklist complete. Babs Garcia April 27, 2023 3:31 PM Please follow up with patient. documented in this encounter [facility] 04-21-2023 Miscellaneous Notes Called patient to number listed, verified pt. Patient reports she is feeling better today, symptoms resolved. She is able to have normal BM and is urinating normally. She Bermudez RN April 21, 2023 11:57 AM Pt waiting for call back reg her plan documented in this encounter [facility] 04-20-2023 Miscellaneous Notes Patient called by lab to give update on embryos. Let patient know that able to biopsy and freeze 1 more today (day 6). Will hold others until tomorrow. Patricia Gregory April 20, 2023 10:33 AM documented in this encounter [facility] 04-19-2023 Miscellaneous Notes Patient called by lab to give update on embryos. 1 blast was biopsied and frozen on day 5. Pablo Smiley April 19, 2023 9:28 AM documented in this encounter [facility] 04-14-2023 History of Present illness Narrative Retrieval procedure performed. Detailed notes can be found in the paper chart in the [facility]- PERSONNEL ARBITRATOR Office. Ab Tang IVF Tech documented in this encounter [facility] 04-13-2023 History of Present illness Narrative Component Latest Ref Rng & Units 04/13/2023 LH See comment mIU/mL 99.9 Progesterone See comment ng/mL 8.7 (H) hCG Quantitative, Blood <5.0 mIU/mL 202.0 (H) Trigger labs reviewed in meeting. Nayana Grullon RN April 13, 2023 9:56 AM documented in this encounter [facility] 04-12-2023 Miscellaneous Notes Addended by: KARLA AVILES on: 04/12/2023 03:56 PM Modules accepted: Orders documented in this encounter [facility] 04-12-2023 History of Present illness Narrative [...] number. Reviewed trigger instructions and sent by [employer]. Pt scheduled for post trigger labs for tomorrow at office 04/13/23. Reviewed retrieval instructions and sent by [employer]. Pt verbalizes understanding. Karla Aviles RN April 12, 2023 2:59 PM documented in this encounter [facility] 04-11-2023 History of Present illness Narrative [...] number. Reviewed IVF plan and sent by [employer], per cycle flowsheet. Patient to return to office 04/12/23. Pt verbalized understanding. plan is to trigger tomorrow for retrieval Monday, if all looks appropriate tomorrow. Message sent to Dr Anne to update. Karla Aviles RN April 11, 2023 2:03 PM documented in this encounter [facility] 04-07-2023 History of Present illness Narrative [...] number. Reviewed IVF plan and sent by [employer], per cycle flowsheet. Patient to return to office 04/11/23. Pt verbalized understanding. Karla Aviles RN April 07, 2023 1:34 PM documented in this encounter [facility] 04-06-2023 History of Present illness Narrative Nancy Anne MD Parekh, Neel, MD; Colt Butler MD; Len Jhaveri MD; Isidro Herrera Ivf [place] IVF Team, We are on the books [...] to call or message . Jerilyn Whitlock APRN.FLOYD April 06, 2023 10:14 AM documented in this encounter [facility] 04-05-2023 Miscellaneous Notes Called [facility] to clarify order for Lupron kit with 1 cc insulin syringe. [employer] message sent to update pt. Karla Aviles RN April 05, 2023 11:02 AM documented in this encounter [facility] 04-05-2023 Miscellaneous Notes Called pt to advise of clearance from [employer] for the extension of her IVF. Refund initiated through [employer] for $13,626.00. PT BILLING ULTRASOUNDS TO INSURANCE Pt would like to discuss insurance update documented in this encounter [facility] 04-04-2023 History and physical note HISTORY AND PHYSICAL EXAMINATION GYNECOLOGY SERVICE DATE: 04/04/2023 SERVICE TIME: 7:45 AM PRIMARY CARE PHYSICIAN: Dr. Centeno in [place], [place] CHIEF COMPLAINT/HISTORY OF PRESENT ILLNESS: Ms. [...] requiring medication, no history of angina, CHF, MT, cardiac surgery or stents. Denies rest pain, [...] dialysis. No history of symptoms or problems. MANAGER MONITORING: No vaginal bleeding due to menopause and [...] TIME: 7:45 AM documented in this encounter [facility] 04-04-2023 History of Present illness Narrative HISTORY AND PHYSICAL EXAMINATION GYNECOLOGY SERVICE DATE: 04/04/2023 SERVICE TIME: 7:45 AM PRIMARY CARE PHYSICIAN: Dr. Centeno in [place], [place] CHIEF COMPLAINT/HISTORY OF PRESENT ILLNESS: Ms. [...] Laterality Date APPENDECTOMY 1992 EXTRACTION ERUPTED TOOTH/EXR 2015 FAMILY HISTORY Problem Relation Age of Onset [...] requiring medication, no history of angina, CHF, MT, cardiac surgery or stents. Denies rest pain, [...] dialysis. No history of symptoms or problems. MANAGER MONITORING: No vaginal bleeding due to menopause and [...] TIME: 7:45 AM documented in this encounter [facility] 04-04-2023 History of Present illness Narrative The patient is here today for follicular ultrasound and blood work. The patient reports no problems or complaints. Ultrasound and blood will be reviewed by the physician, the flow sheet will be updated and instructions will be communicated to the patient. Pt to meet with MILL TENDER SECOND OPERATOR for H&P. Met with pt. Questions answered and reviewed medication that pt has. Karla Aviles RN Called pt by listed phone number. Reviewed IVF plan and sent by [employer], per cycle flowsheet. Patient to return to office 04/07/23. Pt verbalized understanding. Karla Aviles RN April 04, 2023 3:17 PM documented in this encounter [facility] 03-28-2023 History of Present illness Narrative [...] scanned. Reviewed potential timeline and antagonist protocol. [id number], Menopur and Cetrotide. Karla Aviles RN Called pt by listed phone number. Reviewed IVF plan and sent by [employer], per cycle flowsheet. Patient to return to office 04/04/23. Pt verbalized understanding. Karla Aviles RN March 28, 2023 3:03 PM documented in this encounter [facility] 03-03-2023 Miscellaneous Notes Pts pharmacy calling in regards to pts gonnel f ,needing clarification about the directions and the hcg medication questions documented in this encounter [facility] 02-28-2023 Miscellaneous Notes Called pt and reviewed how to take her OCPs. Pt verbalizes understanding. Karla Aviles RN February 28, 2023 8:30 AM patient charted her plan and is unsure if she take the medication tonight. Also have questions abt the medication Also needs to know if she got in touch with the provider office to schedule surgery dr visj's documented in this encounter [facility] 02-24-2023 Miscellaneous Notes Called pt by listed phone number. Reviewed OCP instructions. Reviewed potential timeline. Pt verbalizes understanding. Karla Aviles RN February 24, 2023 4:50 PM Pt needs to start meds sneha speaking with Nurse Karla documented in this encounter [facility] 02-24-2023 Miscellaneous Notes Called pt by [...] please call patient. documented in this encounter [facility] 02-23-2023 Miscellaneous Notes Signing off medication [...] she does develop any issues. Racheal Bhatt APRN.FLOYD February 23, 2023 10:09 AM Called pt by listed phone number, no answer and left VM. Verified pt has baseline spot held and spot held for fresh TESE week of 04/24. Instructed pt to start OCPs with the end of March period. Call to schedule baseline. New medications ordered to [facility] pharmacy as requested. Pt reminded to keep up with annual OBGYN appointment. Karla Aviles RN February 22, 2023 3:21 PM Dylna Allison, I have spoken with the patient also answered her questions. Thank you Pt wants to know how much she will owe after ins covers Pt was able to get able to get apt with Dr Cantu and ques on bc pills documented in this encounter [facility] 12-21-2022 Miscellaneous Notes Received [employer] message from pt. Attempted to call pt [...] 2022 3:42 PM documented in this encounter [facility] 12-19-2022 Miscellaneous Notes Called pt by [...] needs to follow up with urologist at [facility], his sperm was sent from [facility] and Dr. Baker requested patient he meet with urologist, there may be only a few sperm in sample from [facility]. may need another surgery with [facility]. His name is Benedict Gutierrez nury 1990, please follow up with patient. [facility] had referred patient inquiring if [facility] can be billed for services. Patient is having records faxed to Karla. Patient inquiring about having surgery the day of her retrieval. documented in this encounter [facility] 12-07-2022 History of Present illness Narrative [...] IVF requirements sent to the patient via [employer]- Yes Patient reminded to call us with start of periods- Yes Previous Fertility Treatment? - No. Started care at [facility] G 0P 0 AB 0 LMP 11/24/22, Cycles- 28 days Episode created- yes / Protocol- Antagonist Will monitor at [facility] women yearly exam/PAP - Need Uterine Eval - Need before transfer Mammo needed (42yo) - n/a [facility]- Complted 8/30/22 Pt. Labs: Type & Screen, HIV 1&2, [...] Nursing reviewed with patient and Sent via [employer] Is there anything special we should know [...] 2022 9:57 AM documented in this encounter [facility] 12-05-2022 History of Present illness Narrative Images from the original note were not included. [id number] Dona Gutierrez 12/05/2022 REFERRING/PRIMARY PROVIDER(S) -Referring Provider for today's consult: Erik Cheng MD -Primary Care Provider: No primary care provider on file. HISTORY OF PRESENT ILLNESS Dona Gutierrez is a premenopausal 32 y.o. White female who presents to the [facility] for risk assessment and [...] in near future, w/ Dr. Koenig in [facility] at [facility]. She has a family history of breast cancer in her paternal grandmother at 50yrs, with 3 recurrences and a maternal aunt at 51 yrs. She denies any current or new breast concerns, including lumps, skin changes, nipple changes/discharge or pain. She reports that she examines her breasts occasionally. PERSONAL BREAST & MANAGER MONITORING HISTORY Breast biopsy: No Breast cysts: Yes Left 5:00 on 2020 Breast surgery: No Chemoprevention: No Intact uterus and ovaries: Yes Contraception: None currently; attempting - pursuing IVF SCREENING & HEALTH MAINTENANCE Colonoscopy: never Skin cancer screening: Not regularly Eye exams: Not regularly Dental exams: Twice annually BMD: never Vitamin D deficiency: None known MANAGER MONITORING exams: regularly RISK FACTORS FOR BREAST CANCER Social History Social History Narrative MANAGER MONITORING: No LMP recorded.. Last PAP: 2021 Para: [...] new breast concerns. Patient offered a medical nuclear unit operator for sensitive exam. Patient declined nuclear unit operator. documented in this encounter [facility] 12-05-2022 Instructions Eileen House, MARCOS - 12/05/2022 10:00 AM EDT Health Promotion/Lifestyle [...] are many programs offered here at the [facility] for assistance with smoking cessation. Exercise: Studies [...] your enjoyment level documented in this encounter [facility] 11-15-2022 Miscellaneous Notes IVF #1 CLEARED - Auth and referral# [id number]. Pt approved for IVF with ICSI, asst hatching, cryo and storage. DOS are 11/29/22 - 03/01/23 Next steps for ivf referral [id number] placed. Patient states she has coverage. Please call patient. documented in this encounter [facility] 10-27-2022 Miscellaneous Notes LMOVM and sent [...] RGI- HAS CHOSEN TO GO WITH [facility] RODRIGUEZ[facility]- SHE STATED THAT THEY ALSO HAVE OPEN APPROVED CASE WITH [employer] ADVISED TO CLOSE THAT REQUEST SO IT WILL NOT COUNT AGAINST THEY CYCLES USED, WILL SEND MYCHART FORM FOR MEDICAL RELEASE AND WILL HAVE [employer] REACH OUT REACH OUT TO HER FOR SPOUSE SAMPLES TRANSFER PROCESS ADVISED ONCE RECEIVED AND CLINICALS ARE COMPLETED BY DR PRITCHARD WILL SUBMIT PA AND TO ALLOW AT LEAST 15 DYS FOR PA Pt send MC that she would like to move forward with IVF. Need clearance She Bermudez RN October 25, 2022 11:41 AM documented in this encounter [facility] 10-24-2022 Consult note Formatting of th is note is different from the original. VIRTUAL VISIT PROGRESS NOTE This is a virtual visit using [employer] video visit. It required patient-provider interaction for [...] Hysteroscopy Laparoscopy OPK (Ovulation Predictor Kit) Ovarian Boswell Saline Ultrasound Semen Analysis Ultrasound Other (See [...] Team: Discuss medical insurance benefits and likely [id number] costs of IVF. IVF nurse coordinator: Schedule [...] which included preparing to see the patient, [id number] patient care, completing clinical documentation, obtaining and/or reviewing separately obtained history, counseling and educating the patient/family/caregiver, ordering medications, tests, or procedures, communicating with other HCPs (not separately reported), independently interpreting results (not separately reported), and communicating results to the patient/family/caregiver. 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- Primary Female infertility of other specified origin Patient desires Unspecified procreative management Encounter for fertility planning Other specified procreative management [facility] Diagnosis Fibrocystic breast changes, bilateral- Primary Family history of breast cancer Family history of malignant neoplasm of breast Family history of prostate cancer Family history of malignant neoplasm of prostate At high risk for breast cancer [facility] Diagnosis F[facility] testing- Primary [facility] Diagnosis Female infertility- Primary Female infertility of unspecified origin Encounter of female for testing for genetic disease carrier status for procreative management Testing of female for genetic disease carrier status [facility] Female infertility- Primary Female infertility of unspecified origin [facility] Preop examination- Primary Preoperative examination, unspecified Encounter for male factor infertility in female patient Female infertility of other specified origin [facility] Female infertility Female infertility of unspecified origin [facility] Diagnosis Female infertility- Primary Female infertility of unspecified origin Procreative management Unspecified procreative management [facility] Diagnosis Female infertility Female infertility of unspecified origin [facility] Diagnosis Female infertility Female infertility of unspecified origin Encounter for fertility preservation procedure [facility] Diagnosis Primary female infertility- Primary Female infertility of unspecified origin [facility] Diagnosis Female infertility Female infertility of unspecified origin [facility] Female infertility Female infertility of unspecified origin [facility] Diagnosis Female infertility- Primary Female infertility of unspecified origin [facility] Diagnosis Pre-procedural laboratory examination- Primary Female infertility Female infertility of unspecified origin documented in this encounter [facility] note* Diagnosis Female infertility- Primary Female infertility of unspecified origin documented in this encounter [facility] note* Diagnosis Family history of breast cancer- Primary Family history of malignant neoplasm of breast [facility] Diagnosis Female infertility- Primary Female infertility of unspecified origin documented in this encounter [facility] note* Diagnosis examination or test, unconfirmed- Primary Infertility, female Female infertility of unspecified origin documented in this encounter [facility] note* Diagnosis H/O penicillin-type antibiotic allergy- Primary Personal history of allergy to penicillin documented in this encounter [facility] note* Diagnosis No-show for appointment- Primary documented in this encounter [facility] note* Diagnosis Female infertility- Primary Female infertility of unspecified origin Fertility testing documented in this encounter [facility] note* Diagnosis Female infertility- Primary Female infertility of unspecified origin Encounter for fertility testing Fertility testing documented in this encounter [facility] note* Diagnosis with uncertain dates, [...] and obstetric disorders [facility]* Diagnosis 9 weeks gestation of - Primary state, incidental Family history of congenital heart defect Family history of congenital anomalies documented in this encounter [facility] note* Diagnosis Urinary frequency- Primary Cloudy urine Other nonspecific finding on examination of urine documented in this encounter [facility] note* Diagnosis Encounter for (NT) nuchal translucency scan- Primary Other specified screening with uncertain dates, antepartum state, incidental Encounter for routine screening for malformation using ultrasonics [facility] Diagnosis Encounter for supervision of normal first in first trimester- Primary Supervision of normal first 12 weeks gestation of state, incidental with uncertain dates, antepartum state, incidental History of posttraumatic stress disorder (PTSD) History of asthma Personal history of other diseases of respiratory system ERICK (generalized anxiety disorder) Generalized anxiety disorder [facility] Diagnosis Encounter for supervision [...] of respiratory system [facility] Diagnosis Encounter for supervision [...] of respiratory system [facility] Diagnosis Encounter for anatomic survey- Primary 20 weeks gestation of state, incidental [facility] Diagnosis Maternal care for (suspected) abnormality and damage, unspecified, fetus 1 [O35.9XX1]- Primary [facility] Diagnosis Encounter for supervision of normal first in second trimester (HCC)- Primary Supervision of normal first History of posttraumatic stress disorder (PTSD) Rh negative state in antepartum period, first trimester ([facility]) ERICK (generalized anxiety disorder) Generalized anxiety disorder Family history of congenital heart defect Family history of congenital anomalies 24 weeks gestation of ([facility]) state, incidental Screening for diabetes mellitus [facility] Diagnosis Encounter for supervision of normal first in second trimester (HCC)- Primary Supervision of normal first 28 weeks gestation of ([facility]) state, incidental History of posttraumatic stress disorder (PTSD) Generalized anxiety disorder Family history of congenital heart defect Family history of congenital anomalies Rh negative state in antepartum period, first trimester ([facility]) History of asthma Personal history of other diseases of respiratory system Excessive weight gain in , third trimester ([facility]) 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 documented in this encounter [facility] note* Diagnosis Maternal care for (suspected) abnormality and damage, unspecified, fetus 1 ([facility])- Primary documented in this encounter [facility] note* Diagnosis Encounter for supervision of normal first in second trimester ([facility])- Primary Supervision of normal first History of posttraumatic stress disorder (PTSD) Family history of congenital heart defect Family history of congenital anomalies 30 weeks gestation of ([facility]) state, incidental PTSD (post-traumatic stress disorder) Posttraumatic stress disorder ERICK (generalized anxiety disorder) Generalized anxiety disorder Family history of hypothyroidism Family history of other endocrine and metabolic diseases documented in this encounter [facility] note* Diagnosis Encounter for screening for malformation using ultrasound ([facility])- Primary 30 weeks gestation of ([facility]) state, incidental documented in this encounter [facility] note* Diagnosis Encounter for supervision of normal first in third trimester ([facility])- Primary Supervision of normal first History of bowel resection 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 32 weeks gestation of ([facility]) state, incidental 34 weeks gestation of ([facility])- Primary state, incidental Encounter for supervision of normal first in third trimester ([facility]) Supervision of normal first ERICK (generalized anxiety disorder) Generalized anxiety disorder History of bowel resection 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 [facility] Diagnosis Encounter for supervision of normal first in third trimester ([facility])- Primary Supervision of normal first History of bowel resection 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 32 weeks gestation of ([facility]) state, incidental 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, antepartum, single or unspecified fetus ([facility])- Primary documented in this encounter [facility] note* Diagnosis Encounter for supervision of normal first in third trimester ([facility])- Primary Supervision of normal first History of bowel resection 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 32 weeks gestation of ([facility]) state, incidental Encounter for supervision of normal first in third trimester ([facility])- Primary Supervision of normal first 28 weeks gestation of ([facility]) state, incidental 36 weeks gestation of ([facility]) state, incidental Cavernoma Congenital vascular hamartomas History of intestinal surgery Other postprocedural status Encounter for supervision of normal first in first trimester ([facility]) Supervision of normal first documented in this encounter [facility] note* Diagnosis Encounter for supervision of normal first in third trimester ([facility])- Primary Supervision of normal first History of bowel resection 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 32 weeks gestation of ([facility]) state, incidental Supervision of high risk in third trimester ([facility])- Primary Unspecified high-risk 37 weeks gestation of ([facility]) state, incidental Positive GBS test Adverse effect of penicillamine, initial encounter * Assessment & Plan Note - Valerio Leon MD - 03/05/2025 4:16 PM EDT Associated Problem(s): Positive GBS test allergy testing, if not done ancef Orders: URINE OB DIP B/O documented in this encounter [facility] note* Diagnosis Encounter for supervision of normal first in third trimester ([facility])- Primary Supervision of normal first History of bowel resection 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 32 weeks gestation of ([facility]) state, incidental Supervision of high risk in third trimester ([facility])- Primary Unspecified high-risk 37 weeks gestation of (HCC) state, incidental Positive GBS test Adverse effect of penicillamine, initial encounter 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 documented in this encounter [facility] note* Diagnosis Encounter for supervision of normal first in third trimester ([facility])- Primary Supervision of normal first History of bowel resection 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 32 weeks gestation of ([facility]) state, incidental Supervision of high risk in third trimester ([facility])- Primary Unspecified high-risk 37 weeks gestation of ([facility]) state, incidental Positive GBS test Adverse effect of penicillamine, initial encounter Supervision of high risk in third trimester ([facility])- Primary Unspecified high-risk 38 weeks gestation of ([facility]) state, incidental Cavernoma Congenital vascular hamartomas Positive GBS test Family history of congenital heart defect Family history of congenital anomalies Penicillin allergy Personal history of allergy to penicillin Rh negative state in antepartum period, first trimester ([facility]) ERICK (generalized anxiety disorder) Generalized anxiety disorder PTSD (post-traumatic stress disorder) Posttraumatic stress disorder History of posttraumatic stress disorder (PTSD) documented in this encounter [facility] note* Diagnosis Encounter for supervision of normal first in third trimester ([facility])- Primary Supervision of normal first History of bowel resection 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 32 weeks gestation of ([facility]) state, incidental Supervision of high risk in third trimester ([facility])- Primary Unspecified high-risk 37 weeks gestation of ([facility]) state, incidental Positive GBS test Adverse effect of penicillamine, initial encounter 39 weeks gestation of ([facility])- Primary state, incidental Supervision of high risk in third trimester ([facility]) Unspecified high-risk Positive GBS test 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 Patient reports cleared by [facility] anesthesia and will confirm this is on patient's L&D chart. * Assessment & Plan Note - Bebeto Valencia MD - 03/20/2025 10:35 AM EDTAssociated Problem(s): Positive GBS test Orders: URINE OB DIP B/O [facility] Diagnosis 30 weeks gestation of ([facility])- [...] Congenital vascular hamartomas documented in this encounter [facility] note* Diagnosis Encounter for supervision [...] or capillary telangiectasia- Primary Congenital vascular hamartomas 39 weeks gestation of ([facility])- Primary state, incidental Supervision of high risk in third trimester (HCC) Unspecified high-risk Positive GBS test 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 documented in this encounter [facility] for referral (narrative)* Consultation (Routine) - New Request Specialty Diagnoses / Procedures Referred By Fish garcia Referred To Contact Genetics Diagnoses Family history of breast cancer Family history of prostate cancer Eileen House, ENERGY AUDIT ADVISOR-CABLEWAY OPERATOR [address] [place] [address] Referral ID Status Reason Start Date Expiration Date V isits Requested Visits Authorized [id number] New Request 12/05/2022 12/30/2023 1 1 [facility] for referral (narrative)* Diagnostic Procedure Only (Routine) - Authorized Specialty Diagnoses / Procedures Referred By Contac t Referred To Contact [facility] Diagnoses Female infertility Procedures FOLLICULAR US WHI US PELVIC NONOBSTETRIC IMAGE SATISHTLori LIMITED/F/U Racheal Bhatt APRN.CNP [address] [place] [address] [facility] [address] [place] [address] Referral ID Status Reason Start Date Expiration Date Visits Requested Visits Authorized [id number] Authorized Auto-Generat ed Referral 03/23/2023 09/03/2023 6 6 [facility] for referral (narrative)* Diagnostic Procedure Only (Routine) - Pending Review Specialty Diagnoses / Procedures Referred By Contac t Referred To Contact [facility] Diagnoses Female infertility Procedures FOLLICULAR US WHI US PELVIC NONOBSTETRIC IMAGE [facility]/F[facility]U Lalit Pritchard MD [address] [place] [address] [address] Referral ID Status Reason Start Date Expiration Date Visits Requested Visits Authorized [id number] Pending Review Auto-Generat ed Referral 05/16/2023 05/15/2024 1 1 [facility] for referral (narrative)* Outpatient Procedure (Routine) - New Request Specialty Diagnoses / Procedures Referred By Contac t Referred To Contact [facility] Diagnoses Fertility testing Procedures OFFICE HYSTEROSCOPY HYSTEROSCOPY BX ENDOMETRIUM&/POLYPC W/WO D&C Brad Rodriguez MD [address] [place] [address] [address] Referral ID Status Reason Start Date Expiration Date Visits Requested Visits Authorized [id number] New Request Auto-Generat ed Referral 04/02/2024 04/02/2025 1 1 [facility] for referral (narrative)* Outpatient Procedure (Routine) - New Request Specialty Diagnoses / Procedures Referred By Contac t Referred To Contact [facility] Diagnoses Encounter for fertility testing Procedures OFFICE HYSTEROSCOPY HYSTEROSCOPY BX ENDOMETRIUM&/POLYPC W/WO D&C Racheal Bhatt APRN.CNP [address] [place] [address] [address] Referral ID Status Reason Start Date Expiration Date Visits Requested Visits Authorized [id number] New Request Auto-Generat ed Referral 04/23/2024 04/16/2025 1 1 [facility] for referral (narrative)* Diagnostic Procedure Only (Routine) - Pending Review Specialty Diagnoses / Procedures Referred By Contac t Referred To Contact [facility] Diagnoses with uncertain dates, antepartum Procedures NUCHAL TRANSLUCENCY WHI US NUCHAL TRANSLUCENCY 1ST GESTATION Zina Jensen APRN.CNM [address] [place] [address] [address] Referral ID Status Reason Start Date Expiration Date Visits Requested Visits Authorized [id number] Pending Review Auto-Generat ed Referral 08/12/2024 08/12/2025 1 1 * Diagnostic Procedure Only (Routine) - Pending Review Specialty Diagnoses / Procedures Referred By Contac t Referred To Contact [facility] Diagnoses with uncertain dates, antepartum Procedures OBSTETRIC ULTRASOUND WHI US PREG UTERUS AFTER 1ST TRIMEST GESTATION Zina Jensen APRN.CNM [address] [place] [address] [address] Referral ID Status Reason Start Date Expiration Date Visits Requested Visits Authorized [id number] Pending Review Auto-Generat ed Referral 08/12/2024 08/12/2025 1 1 [facility] for referral (narrative)* Outpatient Procedure (Routine) - New Request Specialty Diagnoses / Procedures Referred By Fish t Referred To Contact [facility] Diagnoses 9 weeks gestation of Family history of congenital heart defect Procedures ECHO Zina Jensen APRN.CNM [address] [place] [address] [address] Referral ID Status Reason Start Date Expiration Date Visits Requested Visits Authorized [id number] New Request Auto-Generat ed Referral 08/20/2025 1 1 [facility] for visit Narrative* Diagnostic Procedure Only (Routine) - Authorized Specialty Diagnoses / Procedures Referred By Contac t Referred To Contact [facility] Diagnoses Female infertility Procedures FOLLICULAR US WHI US PELVIC NONOBSTETRIC IMAGE DCMTN LIMITED/F/U Racheal Bhatt APRN.CABLEWAY OPERATOR [address] [place] [address] [address] Referral ID Status Reason Start Date Expiration Date Visits Requested Visits Authorized [id number] Authorized Auto-Generat ed Referral 03/23/2023 09/03/2023 6 6 [facility] for visit Narrative* Diagnostic Procedure Only (Routine) - Closed Specialty Diagnoses / Procedures Referred By Contac t Referred To Contact [facility] Diagnoses Female infertility Procedures SONOHYSTEROGRAPHY (SIS) US WHI SALINE INFUS SONOHYSTEROGRAPHY W/COLOR DOPPLER Racheal Bhatt APRN.CABLEWAY OPERATOR [address] [place] [address] [facility] [address] [place] [address] Referral ID Status Reason Start Date Expiration Date V isits Requested Visits Authorized [id number] Closed Auto-Generate d Referral 04/28/2023 09/03/2023 1 1 [facility] Summary Purpose Family History No Family History Records FoundNo Family History Records FoundNo Family History Records FoundNo Family History Records Found Advance Directives No Advanced Directives Records FoundNo Advanced Directives Records FoundNo Advanced Directives Records FoundNo Advanced Directives Records Found Reason for Referral Specialty Diagnoses / Procedures Referred By Contac t Referred To Contact Racheal Bhatt APRN.CABLEWAY OPERATOR [address] [place] [address] Referral ID Status Reason Start Date Expiration Date Visits Re quested Visits Authorized [id number] Closed 1 1 Referral ID Status Reason Start Date Expiration Date Visits Re quested Visits Authorized [id number] Closed 1 1 Referral ID Status Reason Start Date Expiration Date Visits Re quested Visits Authorized [id number] Closed 1 1 Additional Source Comments Goals [...] or prosecute any alcohol or drug abuse patient.[facility] the event this information is protected by the Federal Confidentiality of Alcohol and Drug Abuse Patient Records regulations: The Federal rules restrict any use of the information to criminally investigate or prosecute any alcohol or drug abuse patient.[facility] the event this information is protected by the Federal Confidentiality of Alcohol and Drug Abuse Patient Records regulations: The Federal rules restrict any use of the information to criminally investigate or prosecute any alcohol or drug abuse patient.[facility] the event this information is protected by the Federal Confidentiality of Alcohol and Drug Abuse Patient Records regulations: The Federal rules restrict any use of the information to criminally investigate or prosecute any alcohol or drug abuse patient.[facility]In the event this information is protected by the Federal Confidentiality of Alcohol and Drug Abuse Patient Records regulations: The Federal rules restrict any use of the information to criminally investigate or prosecute any alcohol or drug abuse patient.[facility] HospitalIn the event this information is protected by the Federal Confidentiality of Alcohol and Drug Abuse Patient Records regulations: The Federal rules restrict any use of the information to criminally investigate or prosecute any alcohol or drug abuse patient.[facility] HospitalIn the event this information is protected by the Federal Confidentiality of Alcohol and Drug Abuse Patient Records regulations: The Federal rules restrict any use of the information to criminally investigate or prosecute any alcohol or drug abuse patient.[facility]In the event this information is protected by the Federal Confidentiality of Alcohol and Drug Abuse Patient Records regulations: The Federal rules restrict any use of the information to criminally investigate or prosecute any alcohol or drug abuse patient.[facility]In the event this information is protected by the Federal Confidentiality of Alcohol and Drug Abuse Patient Records regulations: The Federal rules restrict any use of the information to criminally investigate or prosecute any alcohol or drug abuse patient.[facility] HospitalIn the event this information is protected by the Federal Confidentiality of Alcohol and Drug Abuse Patient Records regulations: The Federal rules restrict any use of the information to criminally investigate or prosecute any alcohol or drug abuse patient.[facility] HospitalIn the event this information is protected by the Federal Confidentiality of Alcohol and Drug Abuse Patient Records regulations: The Federal rules restrict any use of the information to criminally investigate or prosecute any alcohol or drug abuse patient.[facility] HospitalIn the event this information is protected by the Federal Confidentiality of Alcohol and Drug Abuse Patient Records regulations: The Federal rules restrict any use of the information to criminally investigate or prosecute any alcohol or drug abuse patient.[facility] HospitalIn the event this information is protected by the Federal Confidentiality of Alcohol and Drug Abuse Patient Records regulations: The Federal rules restrict any use of the information to criminally investigate or prosecute any alcohol or drug abuse patient.[facility] HospitalIn the event this information is protected by the Federal Confidentiality of Alcohol and Drug Abuse Patient Records regulations: The Federal rules restrict any use of the information to criminally investigate or prosecute any alcohol or drug abuse patient.[facility] HospitalIn the event this information is protected by the Federal Confidentiality of Alcohol and Drug Abuse Patient Records regulations: The Federal rules restrict any use of the information to criminally investigate or prosecute any alcohol or drug abuse patient.[facility] HospitalIn the event this information is protected by the Federal Confidentiality of Alcohol and Drug Abuse Patient Records regulations: The Federal rules restrict any use of the information to criminally investigate or prosecute any alcohol or drug abuse patient.[facility] HospitalIn the event this information is protected by the Federal Confidentiality of Alcohol and Drug Abuse Patient Records regulations: The Federal rules restrict any use of the information to criminally investigate or prosecute any alcohol or drug abuse patient.[facility] HospitalIn the event this information is protected by the Federal Confidentiality of Alcohol and Drug Abuse Patient Records regulations: The Federal rules restrict any use of the information to criminally investigate or prosecute any alcohol or drug abuse patient.[facility] HospitalIn the event this information is protected by the Federal Confidentiality of Alcohol and Drug Abuse Patient Records regulations: The Federal rules restrict any use of the information to criminally investigate or prosecute any alcohol or drug abuse patient.[facility] HospitalIn the event this information is protected by the Federal Confidentiality of Alcohol and Drug Abuse Patient Records regulations: The Federal rules restrict any use of the information to criminally investigate or prosecute any alcohol or drug abuse patient.[facility] HospitalIn the event this information is protected by the Federal Confidentiality of Alcohol and Drug Abuse Patient Records regulations: The Federal rules restrict any use of the information to criminally investigate or prosecute any alcohol or drug abuse patient.[facility] HospitalIn the event this information is protected by the Federal Confidentiality of Alcohol and Drug Abuse Patient Records regulations: The Federal rules restrict any use of the information to criminally investigate or prosecute any alcohol or drug abuse patient.[facility] HospitalIn the event this information is protected by the Federal Confidentiality of Alcohol and Drug Abuse Patient Records regulations: The Federal rules restrict any use of the information to criminally investigate or prosecute any alcohol or drug abuse patient.[facility] HospitalIn the event this information is protected by the Federal Confidentiality of Alcohol and Drug Abuse Patient Records regulations: The Federal rules restrict any use of the information to criminally investigate or prosecute any alcohol or drug abuse patient.[facility] HospitalIn the event this information is protected by the Federal Confidentiality of Alcohol and Drug Abuse Patient Records regulations: The Federal rules restrict any use of the information to criminally investigate or prosecute any alcohol or drug abuse patient.[facility] HospitalIn the event this information is protected by the Federal Confidentiality of Alcohol and Drug Abuse Patient Records regulations: The Federal rules restrict any use of the information to criminally investigate or prosecute any alcohol or drug abuse patient.[facility] HospitalIn the event this information is protected by the Federal Confidentiality of Alcohol and Drug Abuse Patient Records regulations: The Federal rules restrict any use of the information to criminally investigate or prosecute any alcohol or drug abuse patient.[facility] HospitalIn the event this information is protected by the Federal Confidentiality of Alcohol and Drug Abuse Patient Records regulations: The Federal rules restrict any use of the information to criminally investigate or prosecute any alcohol or drug abuse patient.[facility] HospitalIn the event this information is protected by the Federal Confidentiality of Alcohol and Drug Abuse Patient Records regulations: The Federal rules restrict any use of the information to criminally investigate or prosecute any alcohol or drug abuse patient.[facility] HospitalIn the event this information is protected by the Federal Confidentiality of Alcohol and Drug Abuse Patient Records regulations: The Federal rules restrict any use of the information to criminally investigate or prosecute any alcohol or drug abuse patient.[facility] HospitalIn the event this information is protected by the Federal Confidentiality of Alcohol and Drug Abuse Patient Records regulations: The Federal rules restrict any use of the information to criminally investigate or prosecute any alcohol or drug abuse patient.[facility] HospitalIn the event this information is protected by the Federal Confidentiality of Alcohol and Drug Abuse Patient Records regulations: The Federal rules restrict any use of the information to criminally investigate or prosecute any alcohol or drug abuse patient.[facility] HospitalIn the event this information is protected by the Federal Confidentiality of Alcohol and Drug Abuse Patient Records regulations: The Federal rules restrict any use of the information to criminally investigate or prosecute any alcohol or drug abuse patient.[facility] HospitalIn the event this information is protected by the Federal Confidentiality of Alcohol and Drug Abuse Patient Records regulations: The Federal rules restrict any use of the information to criminally investigate or prosecute any alcohol or drug abuse patient.[facility] HospitalIn the event this information is protected by the Federal Confidentiality of Alcohol and Drug Abuse Patient Records regulations: The Federal rules restrict any use of the information to criminally investigate or prosecute any alcohol or drug abuse patient.[facility] HospitalIn the event this information is protected by the Federal Confidentiality of Alcohol and Drug Abuse Patient Records regulations: The Federal rules restrict any use of the information to criminally investigate or prosecute any alcohol or drug abuse patient.[facility] HospitalIn the event this information is protected by the Federal Confidentiality of Alcohol and Drug Abuse Patient Records regulations: The Federal rules restrict any use of the information to criminally investigate or prosecute any alcohol or drug abuse patient.[facility] HospitalIn the event this information is protected by the Federal Confidentiality of Alcohol and Drug Abuse Patient Records regulations: The Federal rules restrict any use of the information to criminally investigate or prosecute any alcohol or drug abuse patient.[facility] HospitalIn the event this information is protected by the Federal Confidentiality of Alcohol and Drug Abuse Patient Records regulations: The Federal rules restrict any use of the information to criminally investigate or prosecute any alcohol or drug abuse patient.[facility] HospitalIn the event this information is protected by the Federal Confidentiality of Alcohol and Drug Abuse Patient Records regulations: The Federal rules restrict any use of the information to criminally investigate or prosecute any alcohol or drug abuse patient.[facility] HospitalIn the event this information is protected by the Federal Confidentiality of Alcohol and Drug Abuse Patient Records regulations: The Federal rules restrict any use of the information to criminally investigate or prosecute any alcohol or drug abuse patient.[facility] HospitalIn the event this information is protected by the Federal Confidentiality of Alcohol and Drug Abuse Patient Records regulations: The Federal rules restrict any use of the information to criminally investigate or prosecute any alcohol or drug abuse patient.[facility] HospitalIn the event this information is protected by the Federal Confidentiality of Alcohol and Drug Abuse Patient Records regulations: The Federal rules restrict any use of the information to criminally investigate or prosecute any alcohol or drug abuse patient.[facility] HospitalIn the event this information is protected by the Federal Confidentiality of Alcohol and Drug Abuse Patient Records regulations: The Federal rules restrict any use of the information to criminally investigate or prosecute any alcohol or drug abuse patient.[facility] HospitalIn the event this information is protected by the Federal Confidentiality of Alcohol and Drug Abuse Patient Records regulations: The Federal rules restrict any use of the information to criminally investigate or prosecute any alcohol or drug abuse patient.[facility] HospitalIn the event this information is protected by the Federal Confidentiality of Alcohol and Drug Abuse Patient Records regulations: The Federal rules restrict any use of the information to criminally investigate or prosecute any alcohol or drug abuse patient.[facility] HospitalIn the event this information is protected by the Federal Confidentiality of Alcohol and Drug Abuse Patient Records regulations: The Federal rules restrict any use of the information to criminally investigate or prosecute any alcohol or drug abuse patient.[facility] HospitalIn the event this information is protected by the Federal Confidentiality of Alcohol and Drug Abuse Patient Records regulations: The Federal rules restrict any use of the information to criminally investigate or prosecute any alcohol or drug abuse patient.[facility] HospitalIn the event this information is protected by the Federal Confidentiality of Alcohol and Drug Abuse Patient Records regulations: The Federal rules restrict any use of the information to criminally investigate or prosecute any alcohol or drug abuse patient.[facility] HospitalIn the event this information is protected by the Federal Confidentiality of Alcohol and Drug Abuse Patient Records regulations: The Federal rules restrict any use of the information to criminally investigate or prosecute any alcohol or drug abuse patient.[facility] HospitalIn the event this information is protected by the Federal Confidentiality of Alcohol and Drug Abuse Patient Records regulations: The Federal rules restrict any use of the information to criminally investigate or prosecute any alcohol or drug abuse patient.[facility] HospitalIn the event this information is protected by the Federal Confidentiality of Alcohol and Drug Abuse Patient Records regulations: The Federal rules restrict any use of the information to criminally investigate or prosecute any alcohol or drug abuse patient.[facility] HospitalIn the event this information is protected by the Federal Confidentiality of Alcohol and Drug Abuse Patient Records regulations: The Federal rules restrict any use of the information to criminally investigate or prosecute any alcohol or drug abuse patient.[facility] HospitalIn the event this information is protected by the Federal Confidentiality of Alcohol and Drug Abuse Patient Records regulations: The Federal rules restrict any use of the information to criminally investigate or prosecute any alcohol or drug abuse patient.[facility] HospitalIn the event this information is protected by the Federal Confidentiality of Alcohol and Drug Abuse Patient Records regulations: The Federal rules restrict any use of the information to criminally investigate or prosecute any alcohol or drug abuse patient.[facility] HospitalIn the event this information is protected by the Federal Confidentiality of Alcohol and Drug Abuse Patient Records regulations: The Federal rules restrict any use of the information to criminally investigate or prosecute any alcohol or drug abuse patient.[facility] HospitalIn the event this information is protected by the Federal Confidentiality of Alcohol and Drug Abuse Patient Records regulations: The Federal rules restrict any use of the information to criminally investigate or prosecute any alcohol or drug abuse patient.[facility] HospitalIn the event this information is protected by the Federal Confidentiality of Alcohol and Drug Abuse Patient Records regulations: The Federal rules restrict any use of the information to criminally investigate or prosecute any alcohol or drug abuse patient.[facility] HospitalIn the event this information is protected by the Federal Confidentiality of Alcohol and Drug Abuse Patient Records regulations: The Federal rules restrict any use of the information to criminally investigate or prosecute any alcohol or drug abuse patient.[facility] HospitalIn the event this information is protected by the Federal Confidentiality of Alcohol and Drug Abuse Patient Records regulations: The Federal rules restrict any use of the information to criminally investigate or prosecute any alcohol or drug abuse patient.[facility] HospitalIn the event this information is protected by the Federal Confidentiality of Alcohol and Drug Abuse Patient Records regulations: The Federal rules restrict any use of the information to criminally investigate or prosecute any alcohol or drug abuse patient.[facility] HospitalIn the event this information is protected by the Federal Confidentiality of Alcohol and Drug Abuse Patient Records regulations: The Federal rules restrict any use of the information to criminally investigate or prosecute any alcohol or drug abuse patient.[facility] HospitalIn the event this information is protected by the Federal Confidentiality of Alcohol and Drug Abuse Patient Records regulations: The Federal rules restrict any use of the information to criminally investigate or prosecute any alcohol or drug abuse patient.[facility] HospitalIn the event this information is protected by the Federal Confidentiality of Alcohol and Drug Abuse Patient Records regulations: The Federal rules restrict any use of the information to criminally investigate or prosecute any alcohol or drug abuse patient.[facility] HospitalIn the event this information is protected by the Federal Confidentiality of Alcohol and Drug Abuse Patient Records regulations: The Federal rules restrict any use of the information to criminally investigate or prosecute any alcohol or drug abuse patient.[facility] HospitalIn the event this information is protected by the Federal Confidentiality of Alcohol and Drug Abuse Patient Records regulations: The Federal rules restrict any use of the information to criminally investigate or prosecute any alcohol or drug abuse patient.[facility] HospitalIn the event this information is protected by the Federal Confidentiality of Alcohol and Drug Abuse Patient Records regulations: The Federal rules restrict any use of the information to criminally investigate or prosecute any alcohol or drug abuse patient.[facility] HospitalIn the event this information is protected by the Federal Confidentiality of Alcohol and Drug Abuse Patient Records regulations: The Federal rules restrict any use of the information to criminally investigate or prosecute any alcohol or drug abuse patient.[facility] HospitalIn the event this information is protected by the Federal Confidentiality of Alcohol and Drug Abuse Patient Records regulations: The Federal rules restrict any use of the information to criminally investigate or prosecute any alcohol or drug abuse patient.[facility] HospitalIn the event this information is protected by the Federal Confidentiality of Alcohol and Drug Abuse Patient Records regulations: The Federal rules restrict any use of the information to criminally investigate or prosecute any alcohol or drug abuse patient.[facility] HospitalIn the event this information is protected by the Federal Confidentiality of Alcohol and Drug Abuse Patient Records regulations: The Federal rules restrict any use of the information to criminally investigate or prosecute any alcohol or drug abuse patient.[facility] HospitalIn the event this information is protected by the Federal Confidentiality of Alcohol and Drug Abuse Patient Records regulations: The Federal rules restrict any use of the information to criminally investigate or prosecute any alcohol or drug abuse patient.[facility] HospitalIn the event this information is protected by the Federal Confidentiality of Alcohol and Drug Abuse Patient Records regulations: The Federal rules restrict any use of the information to criminally investigate or prosecute any alcohol or drug abuse patient.[facility] HospitalIn the event this information is protected by the Federal Confidentiality of Alcohol and Drug Abuse Patient Records regulations: The Federal rules restrict any use of the information to criminally investigate or prosecute any alcohol or drug abuse patient.[facility] HospitalIn the event this information is protected by the Federal Confidentiality of Alcohol and Drug Abuse Patient Records regulations: The Federal rules restrict any use of the information to criminally investigate or prosecute any alcohol or drug abuse patient.[facility] HospitalIn the event this information is protected by the Federal Confidentiality of Alcohol and Drug Abuse Patient Records regulations: The Federal rules restrict any use of the information to criminally investigate or prosecute any alcohol or drug abuse patient.[facility] HospitalIn the event this information is protected by the Federal Confidentiality of Alcohol and Drug Abuse Patient Records regulations: The Federal rules restrict any use of the information to criminally investigate or prosecute any alcohol or drug abuse patient.[facility] HospitalIn the event this information is protected by the Federal Confidentiality of Alcohol and Drug Abuse Patient Records regulations: The Federal rules restrict any use of the information to criminally investigate or prosecute any alcohol or drug abuse patient.[facility] HospitalIn the event this information is protected by the Federal Confidentiality of Alcohol and Drug Abuse Patient Records regulations: The Federal rules restrict any use of the information to criminally investigate or prosecute any alcohol or drug abuse patient.[facility] HospitalIn the event this information is protected by the Federal Confidentiality of Alcohol and Drug Abuse Patient Records regulations: The Federal rules restrict any use of the information to criminally investigate or prosecute any alcohol or drug abuse patient.[facility] HospitalIn the event this information is protected by the Federal Confidentiality of Alcohol and Drug Abuse Patient Records regulations: The Federal rules restrict any use of the information to criminally investigate or prosecute any alcohol or drug abuse patient.[facility] HospitalIn the event this information is protected by the Federal Confidentiality of Alcohol and Drug Abuse Patient Records regulations: The Federal rules restrict any use of the information to criminally investigate or prosecute any alcohol or drug abuse patient.[facility] HospitalIn the event this information is protected by the Federal Confidentiality of Alcohol and Drug Abuse Patient Records regulations: The Federal rules restrict any use of the information to criminally investigate or prosecute any alcohol or drug abuse patient.[facility] HospitalIn the event this information is protected by the Federal Confidentiality of Alcohol and Drug Abuse Patient Records regulations: The Federal rules restrict any use of the information to criminally investigate or prosecute any alcohol or drug abuse patient.[facility] HospitalIn the event this information is protected by the Federal Confidentiality of Alcohol and Drug Abuse Patient Records regulations: The Federal rules restrict any use of the information to criminally investigate or prosecute any alcohol or drug abuse patient.[facility] HospitalIn the event this information is protected by the Federal Confidentiality of Alcohol and Drug Abuse Patient Records regulations: The Federal rules restrict any use of the information to criminally investigate or prosecute any alcohol or drug abuse patient.[facility] HospitalIn the event this information is protected by the Federal Confidentiality of Alcohol and Drug Abuse Patient Records regulations: The Federal rules restrict any use of the information to criminally investigate or prosecute any alcohol or drug abuse patient.[facility] HospitalIn the event this information is protected by the Federal Confidentiality of Alcohol and Drug Abuse Patient Records regulations: The Federal rules restrict any use of the information to criminally investigate or prosecute any alcohol or drug abuse patient.[facility] HospitalIn the event this information is protected by the Federal Confidentiality of Alcohol and Drug Abuse Patient Records regulations: The Federal rules restrict any use of the information to criminally investigate or prosecute any alcohol or drug abuse patient.[facility] HospitalIn the event this information is protected by the Federal Confidentiality of Alcohol and Drug Abuse Patient Records regulations: The Federal rules restrict any use of the information to criminally investigate or prosecute any alcohol or drug abuse patient.[facility] HospitalIn the event this information is protected by the Federal Confidentiality of Alcohol and Drug Abuse Patient Records regulations: The Federal rules restrict any use of the information to criminally investigate or prosecute any alcohol or drug abuse patient.[facility] HospitalIn the event this information is protected by the Federal Confidentiality of Alcohol and Drug Abuse Patient Records regulations: The Federal rules restrict any use of the information to criminally investigate or prosecute any alcohol or drug abuse patient.[facility] HospitalIn the event this information is protected by the Federal Confidentiality of Alcohol and Drug Abuse Patient Records regulations: The Federal rules restrict any use of the information to criminally investigate or prosecute any alcohol or drug abuse patient.[facility] Reason for Visit (unrecogniz ed section and content) Reason Onset Date Comments Care 12/04/2024 Specialty Diagnoses / Procedures Referred By Geraldineac t Referred To Contact Sail Repairer / PERSONNEL ARBITRATOR Diagnoses state, gestational carrier OB Routine OK Per [facility] Procedures OFFICE/OUTPATIENT ESTABLISHED HIGH MDM 40 MIN EST [facility] OB [facility] Zina Jensen APRN.CNM [address] [place] [address] Phone: tel: fax: Referral ID Status Reason Start Date Expiration Date Visits Requested Visits Authorized [id number] Authorized OON Notification Letter 07/25/20 24 07/25/2025 99 99 Reason Comments Infertility Specialty Diagnoses / Procedures Referred By Fish garcia Referred To Contact [facility] Diagnoses Female infertility Procedures FOLLICULAR US WHI US PELVIC NONOBSTETRIC IMAGE DCMTN LIMITED/F/U Racheal Bhatt APRN.CABLEWAY OPERATOR [address] [place] [address] [facility] [address] [place] [address] Referral ID Status Reason Start Date Expiration Date V isits Requested Visits Authorized [id number] Closed Auto-Generate d Referral 03/23/2023 09/03/2023 6 6 Specialty Diagnoses / Procedures Referred By Fish garcia Referred To Contact [facility] Diagnoses IVF pckg [place] [address] [place] [address] [facility] [address] [place] [address] Referral ID Status Reason Start Date Expiration Date Visits Requested Visits Authorized [id number] Authorized Financial Clearance Required - Self Pay [...] in near future, w/ Dr[facility] Koenig [facility]. 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 Specialty Diagnoses / Procedures [facility] To Contact [facility] Diagnoses [place] [address] [place] [address] Ivf Surgery [facility] [address] [place] [address] Referral ID Status Reason Start Date Expiration Date Visits Requested Visits Authorized [id number] Authorized Financial Clearance Required - Self Pay [...] Date Expiration Date Visits Requested Visits Authorized [id number] Authorized Auto-Generat ed Referral 03/23/2023 09/03/2023 6 6 Specialty Diagnoses / Procedures Referred By [facility] Referred To Contact [facility] Diagnoses IVF pckg [place] [address] [place] [address] Ivf Surgery [facility] [address] [place] [address] Reason Comments she pt waiting for call back Reason Comments [facility] 04/27 Karla re sis for fet Reason Comments ques on pgta testing Patient requesting to order meds Reason Comments Patient Question Patient Update Reason Comments FET cleared? Reason Comments Next Steps Reason Comments Genetic Testing Specialty Diagnoses / Procedures [facility] Referred To Contact [facility] Diagnoses New- High Risk- Family hx breast ca- maternal grandmother, paternal aunt- faxed referral: Erik Sweeney MD [address] [place] [phone] Referral ID Status Reason Start Date Expiration Date Visits Re quested Visits Authorized [id number] Closed 02/15/2022 03/12/2023 1 1 Referral ID Status Reason Start Date Expiration Date V isits Requested Visits Authorized [id number] Closed Financial Clearance Required - Self Pay [...] other origin [place] [address] [place] [address] [place] [facility] [place] [address] [place] [address] Referral ID Status Reason Start Date Expiration Date Visits Requested Visits Authorized [id number] Authorized Patient Cleared INN/SM[facility] Payor Auth Obtained Benefit Check 05/22/2023 08/21/2023 99 99 Reason Comments Cost of FET as self pay patient Karla re fet/please follow up with kim ent Reason Comments Follow Up No Show Reason Comments Infertility Reason Comments pt needs notes from her apt on 04/02 sen t the tx Reason Comments Appointment Reason Comments karla was able to get appt withDr Vig Missed Karla's call Reason Comments Initial OB Visit Reason Onset Date Comments Care 08/20/2024 Specialty Diagnoses / Procedures Referred By Fish garcia Referred To Contact PERSONNEL ARBITRATOR Diagnoses NA 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 Reason Comments US Specialty Diagnoses / Procedures Referred By Fish garcia Referred To Contact [facility] Diagnoses with uncertain dates, antepartum Procedures NUCHAL TRANSLUCENCY WHI US NUCHAL TRANSLUCENCY 1ST GESTATION Zina Jensen APRN.CNM [address] [place] [address] [facility] [address] [place] [address] Referral ID Status Reason Start Date Expiration Date V isits Requested Visits Authorized [id number] Closed Auto-Generate d Referral 07/25/2024 08/12/2025 1 1 Reason Onset Date Comments Care 09/13/2024 US Specialty Diagnoses / Procedures Referred By Contac t Referred To Contact Sail Repairer / PERSONNEL ARBITRATOR Diagnoses state, gestational carrier OB Routine [place] Per [facility] Procedures OFFICE/OUTPATIENT ESTABLISHED HIGH MDM 40 MIN EST [facility] [place] Zina Jensen APRN.CNM [address] [place] [address] Referral ID Status Reason Start Date Expiration Date V isits Requested Visits Authorized [id number] Authorized 07/25/2024 07/25/2025 99 99 Reason Onset Date Comments Care 10/15/2024 Reason Onset Date Comments Care 11/08/2024 Specialty Diagnoses / Procedures Referred By Contac t Referred To Contact Sail Repairer / PERSONNEL ARBITRATOR Diagnoses Encounter for supervision of normal first , first trimester OB Routine Procedures OFFICE/OUTPATIENT ESTABLISHED MOD MDM 30 MIN EST [facility] OB Zina Jensen APRN.CNM [address] [place] [address] Phone: tel: fax: Zina Jensen APRN.CNM [address] [place] [address] Phone: tel: fax: Referral ID Status Reason Start Date Expiration Date Visits Re quested Visits Authorized [id number] Closed 07/25/2024 08/12/2025 1 1 Specialty Diagnoses / Procedures Referred By Fish t Referred To Contact [facility] Diagnoses with uncertain dates, antepartum Procedures OBSTETRIC ULTRASOUND [facility] US PREG UTERUS AFTER 1ST TRIMEST GESTATION Zina Jensen APRN.CNM [address] [place] [address] Phone: tel: fax: [facility] [address] [place] [address] Referral ID Status Reason Start Date Expiration Date V isits Requested Visits Authorized [id number] Closed Auto-Generate d Referral 11/02/2024 12/03/2024 1 1 Reason Onset Date Comments Care 01/01/2025 Specialty Diagnoses / Procedures Referred By Contac t Referred To Contact Sail Repairer / PERSONNEL ARBITRATOR Diagnoses Encounter for supervision of normal first , first trimester OB Routine Procedures OFFICE/OUTPATIENT ESTABLISHED MOD MDM 30 MIN EST [facility] OB Zina Jensen APRN.CNM [address] [place] [address] Phone: tel: fax: Zina Jensen APRN.CNM [address] [place] [address] Phone: tel: fax: Referral ID Status Reason Start Date Expiration Date V isits Requested Visits Authorized [id number] Authorized 07/25/2024 07/25/2025 99 99 Reason Comments Medical record release from [facility] Reason Comments Care Coordination echo f/u Reason Onset Date Comments Care 01/17/2025 Specialty Diagnoses / Procedures Referred By Fish t Referred To Contact Sail Repairer / PERSONNEL ARBITRATOR Diagnoses Encounter for supervision of normal first , second trimester Growth/OB Procedures OFFICE/OUTPATIENT ESTABLISHED MOD MDM 30 MIN EST [facility] OB Zina Jensen APRN.CNM [address] [place] [address] Phone: tel: fax: Zina Jensen APRN.CNM [address] [place] [address] Phone: tel: fax: Referral ID Status Reason Start Date Expiration Date Visits Re quested Visits Authorized [id number] Closed 07/25/2024 08/12/2025 1 1 Specialty Diagnoses / Procedures Referred By Contac t Referred To Contact [facility] Diagnoses Encounter for supervision of normal first in second trimester (HCC) Procedures OBSTETRIC ULTRASOUND WHI US PREG UTERUS AFTER 1ST TRIMEST GESTATION Zina Jensen APRN.CNM [address] [place] [address] Phone: tel: fax: [facility] [address] [place] [address] Referral ID Status Reason Start Date Expiration Date V isits Requested Visits Authorized [id number] Closed Auto-Generat ed Referral Patient Cleared - Admin/Chairm an/Director advise to proceed or did not respond 07/25/2024 08/12/2025 1 1 Reason Comments FMLA Paperwork Reason Comments Forms Reason Onset Date Comments Care 02/10/2025 Reason Comments Consult Reason Onset Date Comments Care 02/24/2025 Specialty Diagnoses / Procedures Referred By Geraldineac t Referred To Contact Neurology Diagnoses 28 weeks gestation of (HCC) Procedures CONSULT TO NEUROLOGY OFFICE/OUTPATIENT NEW HIGH MDM 60 MINUTES OFFICE/OUTPATIENT NEW MODERATE MDM 45 MINUTES Zina Jensen APRN.CNM [address] [place] [address] Phone: tel: fax: [facility] [address] [phone] [place] [address] Referral ID Status Reason Start Date Expiration Date V isits Requested Visits Authorized [id number] Closed PCP Requested Referral 01/17/2025 09/03/2025 1 1 Reason Comments Opened In Error Reason Onset Date Comments Care 03/05/2025 Specialty Diagnoses / Procedures Referred By Contac t Referred To Contact Sail Repairer / PERSONNEL ARBITRATOR Diagnoses Encounter for supervision of normal first , first trimester (HCC) OB Routine Procedures OFFICE/OUTPATIENT ESTABLISHED MOD MDM 30 MIN EST WHI OB Zina Jensen APRN.CNM [address] [place] [address] Phone: tel: fax: Zina Jensen APRN.CNM [address] [place] [address] Phone: tel: fax:[phone] Reason Comments New Patient Specialty Diagnoses / Procedures Referred By Fish t Referred To Contact Neurology / NEUROSURGERY Diagnoses 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 Procedures OFFICE/OUTPATIENT NEW MODERATE MDM 45 MINUTES OFFICE/OUTPATIENT ESTABLISHED MOD MDM 30 MIN [facility] [place] [address] [place] [address] Phone: tel: Livia Denny MD [address] [place] [address] Phone: tel: fax: Referral ID Status Reason Start Date Expiration Date V isits Requested Visits Authorized [id number] Authorized 03/03/2025 08/30/2025 99 99 Reason Onset Date Comments Population Health Navigation Outreach 03/10/2025 Ob/peds Reason Onset Date Comments Care 03/10/2025 Specialty Diagnoses / Procedures Referred By Fish t Referred To Contact Sail Repairer / PERSONNEL ARBITRATOR Diagnoses Encounter for supervision of normal first , first trimester (HCC) OB Routine Procedures OFFICE/OUTPATIENT ESTABLISHED MOD MDM 30 MIN EST WHI OB Zina Jensen APRN.CNM [address] [place] [address] Phone: tel: fax: Zina Jensen APRN.CNM [address] [place] [address] Phone: tel: fax: Reason Onset Date Comments Care 03/20/2025 Specialty Diagnoses / Procedures Referred By Fish t Referred To Contact PERSONNEL ARBITRATOR Diagnoses na Procedures na OB/Gynecology [address] [place] [address] Phone: tel: Referral ID Status Reason Start Date Expiration Date Visits Re quested Visits Authorized [id number] 1 1 Reason Comments Appointment Imaging/Records Reason Comments Care Care Teams (unrecognized sec tion and content) Instrumentation Supervisor Relationship Specialty Start Date End Date Jeremiah Centeno [address] [place] [address] PCP - General Family Medicine 04/12/23 Instrumentation Supervisor Relationship Specialty Start Date End Date Jeremiah Centeno [address] [place] [address] PCP - General Family Medicine 04/12/23 Instrumentation Supervisor Relationship Specialty Start Date End Date Jeremiah Centeno [address] [place] [address] PCP - General Family Medicine 04/12/23 Instrumentation Supervisor Relationship Specialty Start Date End Date Jeremiah Centeno [address] [place] [address] PCP - General Family Medicine 04/12/23 Instrumentation Supervisor Relationship Specialty Start Date End Date Jeremiah Centeno [address] [place] [address] PCP - General Family Medicine 04/12/23 Instrumentation Supervisor Relationship Specialty Start Date End Date Jeremiah Centeno [address] [place] [address] PCP - General Family Medicine 04/12/23 Instrumentation Supervisor Relationship Specialty Start Date End Date Jeremiah Centeno [address] [place] [address] PCP - General Family Medicine 04/12/23 Instrumentation Supervisor Relationship Specialty Start Date End Date Jeremiah Centeno [address] [place] [address] PCP - General Family Medicine 04/12/23 Instrumentation Supervisor Relationship Specialty Start Date End Date Jeremiah Centeno [address] [place] [address] PCP - General Family Medicine 04/12/23 Instrumentation Supervisor Relationship Specialty Start Date End Date Jeremiah Centeno [address] [place] [address] PCP - General Family Medicine 04/12/23 Instrumentation Supervisor Relationship Specialty Start Date End Date Jeremiah Centeno [address] [place] [address] PCP - General Family Medicine 04/12/23 Instrumentation Supervisor Relationship Specialty Start Date End Date Jeremiah Centeno MD [address] [place] [address] PCP - General Family Medicine 04/12/23 Instrumentation Supervisor Relationship Specialty Start Date End Date Jeremiah Centeno MD [address] [place] [address] PCP - General Family Medicine 04/12/23 Instrumentation Supervisor Relationship Specialty Start Date End Date Jeremiah Centeno MD [address] [place] [address] PCP - General Family Medicine 04/12/23 Instrumentation Supervisor Relationship Specialty Start Date End Date Jeremiah Centeno MD [address] [place] [address] PCP - General Family Medicine 04/12/23 Instrumentation Supervisor Relationship Specialty Start Date End Date Jeremiah Centeno MD [address] [place] [address] PCP - General Family Medicine 04/12/23 Instrumentation Supervisor Relationship Specialty Start Date End Date Jeremiah Centeno MD [address] [place] [address] PCP - General Family Medicine 04/12/23 Instrumentation Supervisor Relationship Specialty Start Date End Date Jeremiah Centeno MD [address] [place] [address] PCP - General Family Medicine 04/12/23 Instrumentation Supervisor Relationship Specialty Start Date End Date Jeremiah Centeno MD [address] [place] [address] PCP - General Family Medicine 04/12/23 Mitesh Fregoso [address] [place] [address] Referring Sail Repairer 02/01/24 Instrumentation Supervisor Relationship Specialty Start Date End Date Jeremiah Centeno MD [address] [place] [address] PCP - General Family Medicine 04/12/23 Mitesh Fregoso [address] [place] [address] Referring Sail Repairer 02/01/24 Instrumentation Supervisor Relationship Specialty Start Date End Date Jeremiah Centeno MD [address] [place] [address] PCP - General Family Medicine 04/12/23 Mitesh Fregoso [address] [place] [address] Referring Sail Repairer 02/01/24 Instrumentation Supervisor Relationship Specialty Start Date End Date Jeremiah Centeno MD [address] [place] [address] PCP - General Family Medicine 04/12/23 Mitesh Fregoso [address] [place] [address] Referring Sail Repairer 02/01/24 Instrumentation Supervisor Relationship Specialty Start Date End Date Jeremiah Centeno MD [address] [place] [address] PCP - General Family Medicine 04/12/23 Mitesh Fregoso [address] [place] [address] Referring Sail Repairer 02/01/24 Instrumentation Supervisor Relationship Specialty Start Date End Date Jeremiah Centeno MD [address] [place] [address] PCP - General Family Medicine 04/12/23 Mitesh Fregoso [address] [place] [address] Referring Sail Repairer 02/01/24 Instrumentation Supervisor Relationship Specialty Start Date End Date Jeremiah Centeno MD [address] [facility] [place] [address] PCP - General Family Medicine 04/12/23 Mitesh Fregoso [address] [place] [address] Referring Sail Repairer 02/01/24 Instrumentation Supervisor Relationship Specialty Start Date End Date Jeremiah Centeno MD [address] [place] [address] PCP - General Family Medicine 04/12/23 Mitesh Fregoso [address] [place] [address] Referring Sail Repairer 02/01/24 Instrumentation Supervisor Relationship Specialty Start Date End Date Jeremiah Centeno MD [address] [place] [address] PCP - General Family Medicine 04/12/23 Mitesh Fregoso [address] [place] [address] Referring Sail Repairer 02/01/24 Instrumentation Supervisor Relationship Specialty Start Date End Date Jeremiah Centeno MD [address] [place] [address] PCP - General Family Medicine 04/12/23 Mitesh Fregoso [address] [place] [address] Referring Sail Repairer 02/01/24 Instrumentation Supervisor Relationship Specialty Start Date End Date Jeremiah Centeno MD [address] [facility] [place] [address] PCP - General Family Medicine 04/12/23 Mitesh Fregoso [address] [place] [address] Referring Sail Repairer 02/01/24 Instrumentation Supervisor Relationship Specialty Start Date End Date Jeremiah Centeno MD [address] [place] [address] PCP - General Family Medicine 04/12/23 Mitesh Fregoso [address] [place] [address] Referring Sail Repairer 02/01/24 Instrumentation Supervisor Relationship Specialty Start Date End Date Jeremiah Centeno MD [address] [place] [address] PCP - General Family Medicine 04/12/23 Mitesh Fregoso [address] [place] [address] Referring Sail Repairer 02/01/24 Instrumentation Supervisor Relationship Specialty Start Date End Date Jeremiah Centeno MD [address] [place] [address] PCP - General Family Medicine 04/12/23 Mitesh Fregoso [address] [place] [address] Referring Sail Repairer 02/01/24 Instrumentation Supervisor Relationship Specialty Start Date End Date Jeremiah Centeno MD [address] [facility] [place] [address] PCP - General Family Medicine 04/12/23 Mitesh Fregoso [address] [place] [address] Referring Sail Repairer 02/01/24 Instrumentation Supervisor Relationship Specialty Start Date End Date Jeremiah Centeno MD [address] [place] [address] PCP - General Family Medicine 04/12/23 Mitesh Fregoso [address] [place] [address] Referring Sail Repairer 02/01/24 Instrumentation Supervisor Relationship Specialty Start Date End Date Jeremiah Centeno MD [address] [place] [address] PCP - General Family Medicine 04/12/23 Mitesh Fregoso [address] [place] [address] Referring Sail Repairer 02/01/24 Instrumentation Supervisor Relationship Specialty Start Date End Date Jeremiah Centeno MD [address] [place] [address] PCP - General Family Medicine 04/12/23 Mitesh Fregoso [address] [place] [address] Referring Sail Repairer 02/01/24 Instrumentation Supervisor Relationship Specialty Start Date End Date Jeremiah Centeno MD [address] [facility] [place] [address] PCP - General Family Medicine 04/12/23 Mitesh Fregoso [address] [place] [address] Referring Sail Repairer 02/01/24 Instrumentation Supervisor Relationship Specialty Start Date End Date Jeremiah Centeno MD [address] [place] [address] PCP - General Family Medicine 04/12/23 Mitesh Fregoso [address] [place] [address] Referring Sail Repairer 02/01/24 Instrumentation Supervisor Relationship Specialty Start Date End Date Jeremiah Centeno MD [address] [place] [address] PCP - General Family Medicine 04/12/23 Mitesh Fregoso [address] [place] [address] Referring Sail Repairer 02/01/24 Instrumentation Supervisor Relationship Specialty Start Date End Date Jeremiah Centeno MD [address] [place] [address] PCP - General Family Medicine 04/12/23 Mitesh Fregoso [address] [place] [address] Referring Sail Repairer 02/01/24 Instrumentation Supervisor Relationship Specialty Start Date End Date Jeremiah Centeno MD [address] [facility] [place] [address] PCP - General Family Medicine 04/12/23 Mitesh Fregoso [address] [place] [address] Referring Sail Repairer 02/01/24 Instrumentation Supervisor Relationship Specialty Start Date End Date Jeremiah Centeno MD [address] [place] [address] PCP - General Family Medicine 04/12/23 Mitesh Fregoso [address] [place] [address] Referring Sail Repairer 02/01/24 Instrumentation Supervisor Relationship Specialty Start Date End Date Cecile Ruth CNP [address] [facility] [address] [place] [address] PCP - General Family Medicine 03/06/25 Mitesh Fregoso [address] [place] [address] Referring Sail Repairer 02/01/24 Instrumentation Supervisor Relationship Specialty Start Date End Date Cecile Ruth CNP [address] [place] [address] PCP - General Family Medicine 03/06/25 Mitesh Fregoso [address] [place] [address] Referring Sail Repairer 02/01/24 Instrumentation Supervisor Relationship Specialty Start Date End Date Cecile Ruth CNP [address] [facility] [address] [place] [address] PCP - General Family Medicine 03/06/25 Mitesh Fregoso [address] [place] [address] Referring Sail Repairer 02/01/24 Instrumentation Supervisor Relationship Specialty Start Date End Date Cecile uRth CNP [address] [place] [address] PCP - General Family Medicine 03/06/25 Mitesh Fregoso [address] [place] [address] Referring Sail Repairer 02/01/24 Instrumentation Supervisor Relationship Specialty Start Date End Date Cecile Ruth CNP [address] [place] [address] PCP - General Family Medicine 03/06/25 Mitesh Fregoso [address] [place] [address] Referring Sail Repairer 02/01/24 Instrumentation Supervisor Relationship Specialty Start Date End Date Jeremiah Centeno MD [address] [place] [address] PCP - General Family Medicine 04/12/23 03/05/25 Cecile Ruth CNP [address] [place] [address] PCP - General Family Medicine 03/06/25 Mitesh Fregoso [address] [place] [address] Referring Sail Repairer 02/01/24 Instrumentation Supervisor Relationship Specialty Start Date End Date Jeremiah eCnteno MD [address] [place] [address] PCP - General Family Medicine 04/12/23 03/05/25 Cecile Ruth CNP [address] [place] [address] PCP - General Family Medicine 03/06/25 Mitesh Fregoso [address] [place] [address] Referring Sail Repairer 02/01/24 Instrumentation Supervisor Relationship Specialty Start Date End Date Jeremiah Centeno MD [address] [place] [address] PCP - General Family Medicine 04/12/23 03/05/25 Cecile Ruth, CABLEWAY OPERATOR [address] [place] [address] PCP - General Family Medicine 03/06/25 Mitesh Fregoso [address] [place] [address] Referring Sail Repairer 02/01/24 Instrumentation Supervisor Relationship Specialty Start Date End Date Jeremiah Centeno MD [address] [place] [address] PCP - General Family Medicine 04/12/23 03/05/25 Cecile Ruth CABLEWAY OPERATOR [address] [facility] [place] [address] PCP - General Family Medicine 03/06/25 Mitesh Fregoso [address] [place] [address] Referring Sail Repairer 02/01/24 Instrumentation Supervisor Relationship Specialty Start Date End Date Cecile Ruth, FLOYD [address] [facility] [place] [address] PCP - General Family Medicine 03/06/25 Mitesh Fregoso [address] [place] [address] Referring Sail Repairer 02/01/24 INFORMATION SOURCE (unrecogn ized section and content) DATE CREATED AUTHOR 07/09/2023 [facility] DATE CREATED AUTHOR AUTHOR'S ORGANIZ ATION 03/07/2025 [facility] DATE CREATED AUTHOR AUTHOR'S ORGANIZ ATION 03/24/2025 [facility] DATE CREATED AUTHOR AUTHOR'S ORGANIZ ATION 03/26/2025 [facility] FOR RECORDS PERTAINING TO PATIENTS WHO [...] BE BASED ON THE PRIMARY CLINICAL RECORDS. [facility] [employer] [facility]. provides no warranty or guarantee of the accuracy or completeness of information in this document.
[2025-03-27] MEDS: Lactated Ringers 1,000 ML 50 ML IV (01:20)
[2025-03-27 01:39] LABS: Hematocrit 40.9 % (37-47); Hemoglobin 13.0 g/dL (12.0-15.0); Immature Granulocytes Count 0.070 X10^3/uL (0.0-0.0); Mean Corp Hgb Conc 31.8 g/dL (32-36); Mean Corpuscular Volume 81.8 fL (81-99); Mean Platelet Vol. 12.5 fl (6.2-12.0); NRBC Flagged by Analyzer 0 % (0-5); Platelet Count 161 K/mm3 (150-450); RBC Distribution Width CV 14.8 % (11.6-14.6); RBC Distribution Width SD 43.8 fl (35.1-43.9); Red Blood Count 5.00 M/mm3 (4.2-5.4); White Blood Count 14.4 K/mm3 (4.4-11.0)
[2025-03-27] MEDS: Penicillin G Pot 5,000,000 UNITS in 0.9% Normal Saline (100mL MB+) 100 ML 150 UNITS IV (01:46)
[2025-03-27 02:00] LABS: Syphilis Antibodies Nonreactive (Nonreactive)
--- NOTE | 2025-03-27 02:05 | PCM.HP.OB ---
HPI - General General Date of Admission: 03/27/25 HPI Narrative FIOR LOZA, is a 34 F @ 40.4 weeks who presents c/o ctx- made cervical change from 3 to 4cm/70/-2. pt kept for labor [facility] Medical History (Updated 03/27/25 @ 02:[address] Hanna Fonseca MD) Infertility Anxiety Hx: UTI (urinary tract infection) Kidney stones Cavernoma Migraine headache Injury of head and neck Asthma History of intussusception Home Medications Medication Instructions Recorded Last Taken Type GRASS FED LIVER 1,500 mg PO DAILY 03/03/25 03/26/25 08:00 History L. crispatus, gasseri, jensenii, 1 tab PO DAILY 03/03/25 Unknown History rhamnosus 12 billion cell chew tablet ([facility]) cholecalciferol (vitamin D3) 50 4,000 unit PO DAILY 03/03/25 03/26/25 08:00 History mcg (2,000 unit) capsule (Vitamin D3) choline 500 mg tablet 500 mg PO DAILY 03/03/25 03/26/25 08:00 History fish oil-dha-epa 1,200 mg-144 1 cap PO DAILY 03/03/25 03/26/25 08:00 History mg-216 mg capsule multivitamin-folic acid 400 1 tab PO DAILY 03/03/25 03/26/25 08:00 History mcg-biotin 2,000 mcg tablet (Ybsf-Clxd-Cjfnw (ceybjuba-ieyru-orkihu)) Allergy/AdvReac Type Severity Reaction Status Date / Time latex Allergy Rash Verified 03/26/25 21:16 Surgical History (Updated 03/27/25 @ 02:[address] Hanna Fonseca MD) Hx of wisdom tooth extraction Hx of appendectomy Social History Smoking Status: Never smoker History Elective abortions Hx Para 0 Spontaneous abortions Hx # Term Pregnancies Ectopic pregnancies Hx # Pregnancies Multiple births # of living children NST FHR Rate Baby A Baseline: 120 Variability:: Moderate Accelerations:: 15 x 15 Decelerations:: None NST Reactive:: Yes FHR Category:: Category I Uterine Activity:: q2-4min Vital Signs Vital Signs Vital Signs: 03/26/25 21:18 03/26/25 21:18 03/26/25 21:18 Temperature Temperature Source Temporal Pulse Rate 102 H Respiratory Rate Blood Pressure 138/86 H BP Systolic 138 BP Diastolic 86 Pulse Ox 03/26/25 21:18 03/26/25 21:18 03/26/25 21:18 Temperature 98.1 F Temperature Source Pulse Rate Respiratory Rate 16 Blood Pressure BP Systolic BP Diastolic Pulse Ox 98 03/26/25 21:19 03/26/25 21:19 Temperature Temperature Source Pulse Rate 96 Respiratory Rate Blood Pressure BP Systolic BP Diastolic Pulse Ox 100 Weight Weight: 70.7 kg Body Mass Index (BMI) 25.1 Physical Exam Const alert and oriented x3 General Appearance: cooperative HEENT normocephalic GI GI Narrative: Gravid, non tender to palpation. OB / External & Speculum: external exam normal Extremity normal to inspection Skin no rashes or lesions noted Neuro oriented x3 and CN's II-XII intact bilaterally Psych Appearance: grossly normal Labs Labs Labs: Blood Type O NEGATIVE Antibody Screen Pending Hct 40.9 % (37-47) Hgb 13.0 g/dL (12.0-15.0) Syphilis Total Ab Nonreactive (Nonreactive) Rubella IgG Antibody Reactive (Nonreactive) Hep Bs Antigen Non-Reactive (Nonreactive) Hepatitis C Antibody Non-Reactive (Nonreactive) HIV 1&2 Antibody Non-Reactive (Nonreactive) Assessment & Plan (1) History of bowel resection: (2) GAYATRI (generalized anxiety disorder): (3) PTSD (post-traumatic stress disorder): (4) Rh negative status during : (5) 40 weeks gestation of : PLAN: Plan Admit to L&D [facility] FHR/TOCO- ok for intermittent auscultation- desired by patient Epidural if requested for pain Monitor VS Anticipate
[2025-03-27] MEDS: 0.9% Saline Lock 10 ML Syringe IV ×2 (03:03→10:27)
[2025-03-27] MEDS: Penicillin G 3,000,000 Units 50 ML 100 UNITS IV ×3 (06:09→14:29)
[2025-03-27] MEDS: Lidocaine 1% (20 ml mdv) 20 ML Vial INFILT (17:35)
[2025-03-27] MEDS: Oxytocin 15 Units/NS 250ml 15 UNITS/250 ML IV.SOLN 334 UNITS IV (17:40)
[2025-03-27] MEDS: Oxytocin 15 Units/NS 250ml 15 UNITS/250 ML IV.SOLN 83 UNITS IV (18:10)
--- NOTE | 2025-03-27 18:28 | EX.PCM.OBVAG ---
Assessment & Plan (1) (spontaneous vaginal delivery): Maternal Data Information Final SHANTI: 03/23/25 Gestational age: 40+4 Vaginal Delivery Maternal Presentation Maternal Presentation: Active Labor Maternal Presentation: Presented in active labor Type of Induction: Amniotomy Vaginal Delivery Information Procedure Performed: Spontaneous Vaginal Delivery Surgeon/Practitioner: Lydia Naik Date of Procedure: 03/27/25 Pre-Procedure Diagnosis: Labor Post-Procedure Diagnosis: Type of anesthesia: None Estimated Blood Loss: 150 cc Time of Delivery: 17:38 Findings Description of procedure: Presented in labor. Requested minimal intervention. AROM for clear fluid. Progressed to complete and started pushing. Prolonged pushing at over 5 hours. Continued to make progress. Once she was she delivered the vertex over an intact peritoneum. The anterior and posterior shoulders delivered easily followed by the remainder of the body. The infant was placed on the maternal abdomen and was stimulated. The cord was clamped and cut after 5 minutes. The placenta delivered with gentle traction. The was a 1st degree laceration repaired with 3-0 Vicryl. A left labial laceration was repaired with 3-0 Vicryl. The was a separation of the right labia that did not need repaired. All sponge, needle and instrument counts were correct. Presentation: Vertex and KIM Amniotic Membrane Rupture Type: Artificial Amniotic Fluid Description: Lightly stained meconium Placental Delivery Description: Spontaneous Placenta Disposition: [facility] Specimen collected: No Cord Vessel Description: 3 Vessels Cord Entanglement: None Infant A Gender: Female (1 minute): 8 (5 minute): 9 Delayed Cord Clamping: Yes Washcoat Wiper associate professor of communication: No Post Vaginal Deli Medications given after delivery: IV Pitocin Episiotomy Description: None Laceration: Midline, Periurethral Extnsion/lac and 1st degree Complication Complications: No
[2025-03-27] MEDS: SELF ADMINISTRATION OF MEDS 1 EACH NOTE (22:05)
[2025-03-28] VITALS (13 sets, daily range): BP systolic 88–122; BP diastolic 50–60; PULSE 80–110; RESP 14–16; TEMP 36.3–37.1; O2SAT 97–100
[2025-03-28 06:59] LABS: Hematocrit 30.7 % (37-47); Hemoglobin 10.0 g/dL (12.0-15.0); Immature Granulocytes Count 0.160 X10^3/uL (0.0-0.0); Mean Corp Hgb Conc 32.6 g/dL (32-36); Mean Corpuscular Volume 81.6 fL (81-99); Mean Platelet Vol. 12.5 fl (6.2-12.0); NRBC Flagged by Analyzer 0 % (0-5); Platelet Count 167 K/mm3 (150-450); RBC Distribution Width CV 15.1 % (11.6-14.6); RBC Distribution Width SD 44.6 fl (35.1-43.9); Red Blood Count 3.76 M/mm3 (4.2-5.4); White Blood Count 18.6 K/mm3 (4.4-11.0)
--- NOTE | 2025-03-28 07:32 | PN.OBGYN_ITS ---
Subjective Subjective Doing well. Ambulating and voiding without difficulty. Mild lochia. Breast feeding. Objective Data Objective Data Vital Signs: Vital Signs Temp Pulse Resp BP Pulse Ox O2 Del Method 97.3 F L 100 14 107/60 99 Room Air 03/28/25 05:05 03/28/25 05:37 03/28/25 05:05 03/28/25 05:37 03/28/25 05:05 03/28/25 05:05 Oxygen Delivery Method Room Air Weight: 70.7 kg Body Mass Index (BMI) 25.1 Intake & Output: Intake and Output for Last 24 Hours 03/26/25 03/27/25 03/28/25 23:59 23:59 23:59 Intake Total 689.5 / 689.5 Output Total 200 / 200 Balance 489.5 / 489.5 Lab / Micro Data 03/28/25 06:37 Labs: Laboratory Results - last 24 hr 03/28/25 06:37: WBC 18.6 H, RBC 3.76 L, Hgb 10.0 L, Hct 30.7 L, MCV 81.6, MCH 26.6 L, MCHC 32.6, RDW Std Deviation 44.6 H, RDW Coeff of Hua 15.1 H, Plt Count 167, MPV 12.5 H, Immature Gran % (Auto) 0.900, Neut % (Auto) 85.3 H, Lymph % (Auto) 9.3 L, [place] % (Auto) 4.0, Eos % (Auto) 0.3, Baso % (Auto) 0.2, Absolute Neuts (auto) 15.9 H, Absolute Lymphs (auto) 1.74, Nucleated RBC % 0 ROS Constitutional Constitutional: Denies headache(s) Cardiovascular Cardiovascular: Denies chest pain or dyspnea Gastrointestinal Gastrointestinal: Denies nausea or vomiting Genitourinary Genitourinary: Denies dysuria Physical Exam Const alert, oriented x3 and no apparent distress General Appearance: cooperative and comfortable Eyes PERRL and EOMs intact bilaterally Resp normal respiratory effort GI soft to palpation and non-tender Uterus Palpation: uterus fundus firm ( below umbilicus) Extremity normal to inspection and full ROM Neuro oriented x3 and CN's II-XII intact bilaterally Psych mental status grossly normal Assessment & Plan (1) (spontaneous vaginal delivery): PLAN: Plan Routine care
[2025-03-29 02:40] VITALS: BP 115/62; PULSE 110; RESP 16; TEMP 36.2; O2SAT 100
[2025-03-29 03:02] VITALS: BP 115/62; PULSE 112; PULSE 121; O2SAT 100
[2025-03-29 08:33] VITALS: BP 101/56; PULSE 83
[2025-03-29 08:48] VITALS: BP 101/56; PULSE 85; RESP 16; TEMP 37.1; O2SAT 99
--- NOTE | 2025-03-29 09:18 | PCM.DC.SUM ---
Providers Date of Admission: 03/27/25 Primary Care Physician: Dr. Natasha Asencio MD Reason For Visit: VAGINAL DELIVERY Diagnosis Discharge Diagnosis (1) (spontaneous vaginal delivery): Status: Acute Code(s): O80 - Encounter for full-term uncomplicated delivery Medications at Discharge Home Medications GRASS FED LIVER 1,500 mg PO DAILY 03/03/25 L. crispatus, gasseri, jensenii, rhamnosus 12 billion cell chew tablet ([facility]) 1 tab PO DAILY 03/03/25 cholecalciferol (vitamin D3) 50 mcg (2,000 unit) capsule (Vitamin D3) 4,000 unit PO DAILY 03/03/25 choline 500 mg tablet 500 mg PO DAILY 03/03/25 fish oil-dha-epa 1,200 mg-144 mg-216 mg capsule 1 cap PO DAILY 03/03/25 multivitamin-folic acid 400 mcg-biotin 2,000 mcg tablet (Oqbi-Fqwe-Oiieq (paabtrjh-wnfbd-spbofa)) 1 tab PO DAILY 03/03/25 acetaminophen 500 mg tablet 1,000 mg (2 x 500 mg) PO Q6H PRN PRN Pain 1-10 Or Fever #0 tabs 03/29/25 dibucaine 1 % topical ointment 1 applic topical TID PRN PRN Discomfort #0 grams 03/29/25 ibuprofen 600 mg tablet 600 mg PO Q6H PRN PRN Pain Score 1-10 #0 tabs 03/29/25 Hospital Course Operations None Procedures None Summary of Care Provided Minutes Spent on Discharge: 15 Hospital Course: Patient had vaginal delivery. Hospital course was uneventful. Physical Exam Narrative Patient seen at bedside. Denies pain. Ambulating and voiding without difficulty. Lochia decreased. Desires discharge home today. Const alert and oriented x3 General Appearance: Negative for in distress HEENT normocephalic Eyes General Eye: normal appearance of both eyes Neck General: normal visual inspection Chest Chest: symmetrical chest wall rise Resp normal respiratory effort and normal air movement Effort and Inspection: symmetric chest movement; Negative for tachypneic Auscultation: clear to auscultation bilaterally Cardio regular rate and regular rhythm Peripheral Pulses: pulses 2+ throughout GI normal to inspection, nondistended, normoactive bowel sounds Narrative: Ice to perineum OB / External & Speculum: vaginal bleeding and other Lochia decreasing Uterus Palpation: uterus fundus firm (Below U) Extremity normal to inspection, full ROM and normal capillary refill Skin no rashes or lesions noted Neuro oriented x3, CN's II-XII intact bilaterally and gait normal Psych mental status grossly normal, thought process normal and activity/motor behavior normal Weight / BMI Weight Weight: 155 lb 13.869 oz Body Mass Index (BMI) 25.1 ABG / Lab / Microbiology Data 03/28/25 06:37 D/C Instructions Discharge Activity: Return to Normal Activity, No Restrictions, May Drive, May Shower and May Take a Tub Bath (Warm water only. No bath salts, soaps, bubbles) May resume sexual activity in: 6-8 weeks Weight Bearing Status: Weight bearing as tolerated Call your doctor if you observe: Fever of 101 or Higher, Inability to urinate, Using more than 1 pad per hour, Shortness of breath, Dizziness, Chest pain, Calf discomfort and Uncontrolled pain DC O2, CPAP, BIPAP Needs Home O2 Discharge instructions: No Please Follow Up With: [facility] REYNOLDS When: 2 weeks in office or virtual Meaningful Use Info Meaningful Use Meaningful Use Diagnoses (Choose all that apply): None applicable Discharge Plan Admission Admit Date/Time: 03/27/25 00:43 Primary Reason for Your Visit: Labor and Delivery Attending Provider: Lydia Naik Primary Care Provider: Natasha Asencio Discharge Orders/Prescriptions Prescriptions: New acetaminophen 500 mg Tablet 1,000 mg PO Q6H PRN PRN (Reason: Pain 1-10 Or Fever) Qty: 0 0RF dibucaine 1 % Ointment 1 applic topical TID PRN PRN (Reason: Discomfort) Qty: 0 0RF Protocol: *Topical Application Instructions APPLICATION INSTRUCTIONS: To perineum for discomfort ibuprofen 600 mg Tablet 600 mg PO Q6H PRN PRN (Reason: Pain Score 1-10) Qty: 0 0RF No Action GRASS FED LIVER 1,500 mg PO DAILY cholecalciferol (vitamin D3) [Vitamin D3] 50 mcg (2,000 unit) capsule 4,000 unit PO DAILY fish oil-dha-epa 1,200-144-216 mg capsule 1 cap PO DAILY [facility] 12 billion cell tablet,chewable 1 tab PO DAILY choline 500 mg tablet 500 mg PO DAILY Brey-Mpni-Xqlij (cd-HJ-xcajar) 400-2,000 mcg tablet 1 tab PO DAILY Referrals / Follow Up: Vicky Engel CNM [Med Staff - [facility] Practice Prof] - Natasha Asencio MD [Primary Care Provider] - Disposition Disposition (needs filled in before D/C Order can be placed): Home, Self Care
--- NOTE | 2025-03-29 13:50 | CASEMGMT ---
Social Work Assessment Labor and Delivery Unit Patient Address: [address] [place] [address] Phone number:[phone] Date of Referral: 03/28/25 Time of Referral: 08:51 Referred By: Lydia Naik Date of Intervention: 03/29/25 Time of Intervention: 13:52 Reason for Referral: Mental Health/Anxiety/PTSD History obtained from: Medical records, mother of baby (MOB) and father of baby (FOB). Household composition: MOB, FOB (Benedict, age 32), and their daughter, Marlon, born on 03/27/25. Patient's parent/guardian status: MOB and FOB have been together for 15 years and have been for 13 years (it will be 14 years in May). MOB denied any previous or current issues of domestic violence and described a positive relationship with the FOB. MOB and FOB both denied having any other children. Medical History: :1, Para, now 1. MOB received care (PNC) through [facility] beginning at 8 weeks and 1 day. Visits were observed to be routine. Apgars: 8 and 9. Weight: 3570 grams, Content Publisher: Dr. Mckeon. Educational Status: MOB and FOB denied any issues with reading, writing or learning comprehension. MOB earned her bachelor’s degree in nursing and the FOB earned his associates degree in logistics. Financial Status: MOB and FOB reported that their income is sufficient to meet the needs of their family at this time. MOB is planning on being a zfsh-rn-bfte-mom (SAHM) and the FOB is currently working full-time in the area of [facility] [employer]. Supplies: MOB and FOB reported they have the supplies they need for baby at this time including but not limited to: Car seat, bassinet, crib, diapers, bottles, breast pump and clothing. Childcare/Caregiver(s): MOB reported that as a SAHM, she will be the primary caregiver, and the FOB will support and help care for during the times he is at home. Transportation: Both MOB and FOB are licensed drivers and have a reliable vehicle to get baby to and from all medical appointments. MOB and FOB denied any issues/barriers to transportation at this time. Programs/Agencies Involved: The MOB and FOB are current foster parents through [facility] and go through a private agency, however MOB and FOCele do not have any current placements and have placed a temporary hold on receiving any new placements. MOB used to receive individual counseling services through [facility] which the MOB described as being very effective. MOB and FOB reported [facility] also [facility] and attended educational classes about PPD which they both described as very helpful. Children Services/Legal Issues: MOB and FOB denied any history of Children Services involvement. MOB and FOB denied any previous or current legal involvement. 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 MOB reported she was feeling very lonely at that time. MOB described it as situational and stated symptoms are currently managed at this time without medication. The FOB denied any mental health issues/concerns. Substance Use History: MOB and FOB denied any previous or current alcohol abuse. Family History: MOB believes her mother has Bipolar, TBI and PTSD. MOB also stated that her half-sister this year due to health complication she feels were a direct result on the number of years her half-sister abused drugs. KATHLEEN denied any mental health issues on his side of the family however reported his maternal grandfather struggled with drugs and is also . KATHLEEN also feels strongly that his grandfather’s addiction also led to a premature . Drug Screens: None were obtained for the MOB or the during this admission. Family/Social Stressors: Denied. Support Systems: MOB identified her biggest support as the FOB, and their extensive sabianist family whom the MOB stated have visited and are providing meals for roughly 2 weeks. MOB stated some of her family members are emotionally supportive including her mother and step-father however the MOB’s family all live out of state. The FOB’s mother is , and the FOB has an estranged relationship with his father and step-mother due to issues with the step-mother. Depression/Shaken Baby/Safe Sleeping: Pension Consultant provided verbal and written education on PPD, increased risk factors for PPD, Safe Sleeping and Shaken Baby. MOB and FOB both verbalized an understanding. ASSESSMENT: MOB and FOB provided consent to social work visit. Upon arrival, the MOB was sitting in a hospital chair nursing and the FOB was sitting near-by on the edge of the bed. Pension Consultant observed positive interaction between the MOB and the FOB. Both were verbally engaged, were cooperative and smiled at one another when reminiscing. The FOB was observed to be very helpful with the MOB and attentive to some things the MOB needed during the assessment. At times, the FOB helped without any verbal prompting; just observed a need and took care of it. The FB also got up at one point and got a Kleenex when the spit up while being burped. The MOB was observed to be very gentle with and rubbed ’s head throughout nursing and covered with a blanket after nursing was completed. At the end of the assessment, Pension Consultant requested to speak with the MOB alone, which she and the FOB were both agreeable to. MOB reported feeling safe in her home and denied any previous or current domestic violence, unmanaged mental health issues either with herself or with the FOB and also denied any concerns with drug or alcohol abuse either with herself or with the FOB as well as any unmanaged mental health concerns. Safe Plan of Care for related to substance use: Not needed at this time. PLAN: For MOB and baby to be discharged when medically ready. No other services requested or indicated. Lydia Arriaga, STIFF NECK LOADER, SHELL CORE AND MOLDING SUPERVISOR
== END 2025-03-29 14:25 | disposition home or self-care (01) | DRG 807 ==
LOC: WPOUT 00:49 → WP 11:25
PROVIDERS: Obstetrics & Gynecology; Admitting Provider Obstetrics & Gynecology; PCP Family Medicine; Referring Provider Obstetrics & Gynecology; Visit Provider Obstetrics & Gynecology
DX: O99.344 Other mental disorders complicating childbirth (principal); Z37.0 Single live birth; F41.1 Generalized anxiety disorder; F43.10 Post-traumatic stress disorder, unspecified; O70.0 First degree perineal laceration during delivery; O26.893 Other specified pregnancy related conditions, third trimester; O77.0 Labor and delivery complicated by meconium in amniotic fluid; Z3A.40 40 weeks gestation of pregnancy; Z67.91 Unspecified blood type, Rh negative
CPT/HCPCS: 36415; 59025; 59050; 85025; 86780; 86850; 86900; 86901; 99221; A4216; G0378